=== PATIENT | female | born 1940 | race American Indian/Alaskan Native ===

== ENCOUNTER 2018-05-21 17:12 | Outpatient (CLI) | payer MEDICARE | END 2018-05-21 17:13 | disposition home or self-care (01) | LOC: LAB 17:12 | PROVIDERS: ATTEND Internal Medicine | DX: I13.2 Hypertensive heart and chronic kidney disease with heart failure and with stage 5 chronic kidney disease, or end stage renal disease (principal); E78.5 Hyperlipidemia, unspecified; N18.6 End stage renal disease; I50.9 Heart failure, unspecified; E78.00 Pure hypercholesterolemia, unspecified; M19.90 Unspecified osteoarthritis, unspecified site; E03.9 Hypothyroidism, unspecified; J44.9 Chronic obstructive pulmonary disease, unspecified; K21.9 Gastro-esophageal reflux disease without esophagitis; Z90.49 Acquired absence of other specified parts of digestive tract; Z90.710 Acquired absence of both cervix and uterus; Z87.891 Personal history of nicotine dependence | CPT/HCPCS: 36415; 84132 ==

== ENCOUNTER 2018-11-20 07:54 | Outpatient (CLI) | payer MEDICARE ==
[2018-11-20] MEDS ORDERED: XYLOCAINE TOPICAL 4% TP ONE (09:00)
== END 2018-11-20 07:55 | disposition home or self-care (01) ==
LOC: WOUND 07:54
PROVIDERS: ATTEND Surgery
DX: E11.621 Type 2 diabetes mellitus with foot ulcer (principal); L97.512 Non-pressure chronic ulcer of other part of right foot with fat layer exposed; E11.69 Type 2 diabetes mellitus with other specified complication; M86.671 Other chronic osteomyelitis, right ankle and foot; E11.22 Type 2 diabetes mellitus with diabetic chronic kidney disease; I12.0 Hypertensive chronic kidney disease with stage 5 chronic kidney disease or end stage renal disease; N18.6 End stage renal disease; E11.51 Type 2 diabetes mellitus with diabetic peripheral angiopathy without gangrene; Z90.710 Acquired absence of both cervix and uterus
CPT/HCPCS: 11043; G0463; 99205

== ENCOUNTER 2018-11-26 05:46 | Day surgery (SDC) | payer MEDICARE ==
[~2018-11-26 05:46] MED LIST: LACTATED RINGERS 1,000 ML IV SCH
[2018-11-26] MEDS ORDERED: HEPARIN SUB-Q NR (07:15)
[2018-11-26] MEDS ORDERED: DILAUDID ONE (07:20)
[2018-11-26] MEDS ORDERED: DIPRIVAN 10 MG/ML IV ONE (07:20)
[2018-11-26] MEDS ORDERED: XYLOCAINE MPF 2% ONE (07:20)
--- NOTE | 2018-11-26 07:24 | Anesthesia Day of Surgery ---
Anesthesia Day of Surgery - Day of Surgery Patient Examined: Yes Patient H&P Reviewed: Yes Patient is NPO: Yes Beta Blockers: No (n/a) Cardiac Clearance: No (n/a) Pulmonary Clearance: No (n/a)
--- NOTE | 2018-11-26 07:24 | Anesthesia Consultation ---
Anesthesia Consult and Med Hx Date of service: 11/26/18 - Airway Anesthetic Teeth Evaluation: Dentures ROM Head & Neck: Adequate Mental/Hyoid Distance: Adequate Mallampati Class: Class II Intubation Access Assessment: Probably Good - Pulmonary Exam CTA: Yes - Cardiac Exam Cardiac Exam: RRR - Pre-Operative Health Status ASA Pre-Surgery Classification: ASA4 Proposed Anesthetic Plan: General, MAC - Pulmonary Hx Smoking: Yes (SOCIALLY ONLY; QUIT 1972) SOB: Yes (resolved with oxygen via nasal cannula) COPD: Yes Hx Sleep Apnea: Yes - Cardiovascular System Hx Hypertension: Yes (SINCE ) Hx Heart Attack/AMI: No Hx Cardia Arrhythmia: No - Central Nervous System CVA: Yes (2013; "balance is a little off" per daughter) Hx Back Pain: Yes Hx Psychiatric Problems: No - Gastrointestinal Hx Gastroesophageal Reflux Disease: Yes (controlled with medication) - Endocrine Hx End Stage Renal Disease: Yes (HD yesterday; K+ 5.0) Hx Liver Disease: No Hx Insulin Dependent Diabetes: Yes (FBS 135 this morning ) Hx Hypothyroidism: Yes - Other Systems Hx Alcohol Use: No Hx Substance Use: No Hx Cancer: No Hx Obesity: Yes - Additional Comments Anesthesia Medical History Comments: No GAC, No FHAC
[2018-11-26] MEDS ORDERED: NACL 0.9% IR ONE (07:51)
[2018-11-26] MEDS ORDERED: ANCEF/STERILE WATER 2 GM/20 ML IV NR (08:00)
[2018-11-26] MEDS ORDERED: ZOFRAN ONE (08:18)
[2018-11-26] MEDS ORDERED: PERCOCET 5/325 PO PRN (08:44)
[2018-11-26] MEDS: DILAUDID IV PRN ×4 (08:50→09:30)
--- NOTE | 2018-11-26 10:31 | Procedure Note ---
Date of procedure: 11/26/18 Pre-op diagnosis: Infected, gangrenous right 3rd toe Post-op diagnosis: same (With osteomyelitis of proximal phalanx) Procedure: Right 3rd toe transmetatarsal amputation Description of procedure: Pt was placed supine on the OR table. General anesthesia by LMA was administered. Pt's right foot was prepped and drape. A tear drop incision was made about the right 3rd toe. Bleeding was minimal. The right 3rd toe was amputated and the MTP joint. The right 3rd metatarsal head was amputated with a bone cutter. Tendons were maximally retracted and transected as proximal as possible. Pus within the wound was cultured. Necrotic skin, SQ tissue, muscle and fascia were sharply debrided. Wound was irrigated with warm saline. Wound was packed open with a dilute Betadine moistened Kerlix roll followed by a Kerlix and Coban wrap. Pt tolerated the procedure well. She was taken to PACU in stable condition. Anesthesia: other (LMA) Surgeon: OMER SANDOVAL Estimated blood loss: minimal Pathology: list (Right 3rd toe and metatarsal head; Also, aerobic and anaerobic C&S) Specimen disposition: to lab Condition: stable Disposition: PACU
[2018-11-26 11:00] VITALS: BP 113/67
--- NOTE | 2018-11-26 11:09 | Post Anesthesia Evaluation ---
- Post Anesthesia Evaluation Patient Participated: Yes Airway Patent: Yes Stable Respiratory Function: Yes Nausea/Vomiting: No Temp > 96.8F: Yes Pain Manageable: Yes Adequeate Hydration: Yes Anesthesia Complications: No
== END 2018-11-26 12:05 | disposition home or self-care (01) ==
LOC: OR 05:46
PROVIDERS: ATTEND Surgery
DX: E11.69 Type 2 diabetes mellitus with other specified complication (principal); M86.8X9 Other osteomyelitis, unspecified sites; G47.33 Obstructive sleep apnea (adult) (pediatric); I13.2 Hypertensive heart and chronic kidney disease with heart failure and with stage 5 chronic kidney disease, or end stage renal disease; E11.22 Type 2 diabetes mellitus with diabetic chronic kidney disease; E03.9 Hypothyroidism, unspecified; N18.6 End stage renal disease; I50.9 Heart failure, unspecified; D64.9 Anemia, unspecified; E11.40 Type 2 diabetes mellitus with diabetic neuropathy, unspecified; E78.00 Pure hypercholesterolemia, unspecified; E78.5 Hyperlipidemia, unspecified; J44.9 Chronic obstructive pulmonary disease, unspecified; K21.9 Gastro-esophageal reflux disease without esophagitis; E66.9 Obesity, unspecified; M19.90 Unspecified osteoarthritis, unspecified site; Z98.890 Other specified postprocedural states; Z91.81 History of falling; Z88.0 Allergy status to penicillin; Z79.899 Other long term (current) drug therapy; Z79.01 Long term (current) use of anticoagulants; Z87.891 Personal history of nicotine dependence; Z99.2 Dependence on renal dialysis; Z98.42 Cataract extraction status, left eye; Z98.41 Cataract extraction status, right eye; Z90.49 Acquired absence of other specified parts of digestive tract; Z68.28 Body mass index [BMI] 28.0-28.9, adult; Z83.3 Family history of diabetes mellitus; Z90.710 Acquired absence of both cervix and uterus; Z82.49 Family history of ischemic heart disease and other diseases of the circulatory system; Z88.8 Allergy status to other drugs, medicaments and biological substances; Z86.73 Personal history of transient ischemic attack (TIA), and cerebral infarction without residual deficits
CPT/HCPCS: 28810; 82803; 82962; 87075; 87116; 88302; 88304; 88311; J1170; J1644; J2405; J2704; J7120; 88305

== ENCOUNTER 2018-11-28 13:59 | Outpatient (CLI) | payer MEDICARE | END 2018-11-28 14:00 | disposition home or self-care (01) | LOC: WOUND 13:59 | PROVIDERS: ATTEND Surgery | DX: E11.621 Type 2 diabetes mellitus with foot ulcer (principal); L97.511 Non-pressure chronic ulcer of other part of right foot limited to breakdown of skin; E11.69 Type 2 diabetes mellitus with other specified complication; M86.671 Other chronic osteomyelitis, right ankle and foot; E11.51 Type 2 diabetes mellitus with diabetic peripheral angiopathy without gangrene; E11.22 Type 2 diabetes mellitus with diabetic chronic kidney disease; I12.0 Hypertensive chronic kidney disease with stage 5 chronic kidney disease or end stage renal disease; N18.6 End stage renal disease; H54.7 Unspecified visual loss; Z90.710 Acquired absence of both cervix and uterus; Z90.49 Acquired absence of other specified parts of digestive tract; Z99.2 Dependence on renal dialysis | CPT/HCPCS: 99212; G0463 ==

== ENCOUNTER 2018-11-29 09:00 | Inpatient (IN) | payer MEDICARE ==
[2018-11-29] MEDS ORDERED: NACL 0.9% 1000 ML 500 ML IV ONE (09:48)
--- NOTE | 2018-11-29 09:54 | Emergency Department Report ---
ED General Adult HPI - General Chief complaint: Altered Mental Status Stated complaint: ALTERED MENTAL STATUS Time Seen by Provider: 11/29/18 09:33 Source: EMS Mode of arrival: Stretcher Limitations: Altered Mental Status - History of Present Illness Initial comments: This is a 78-year-old female with alteration in mental status. Limited history is available to me at this time. Ticket Puller states that the patient was last seen well at 11 PM last night. She was lethargic this a.m. She has recently had foot surgery at this facility per the 11/26/2018 note: Right 3rd toe transmetatarsal amputation Description of procedure: Pt was placed supine on the OR table. General anesthesia by LMA was administered. Pt's right foot was prepped and drape. A tear drop incision was made about the right 3rd toe. Bleeding was minimal. The right 3rd toe was amputated and the MTP joint. The right 3rd metatarsal head was amputated with a bone cutter. Tendons were maximally retracted and transected as proximal as possible. Pus within the wound was cultured. Necrotic skin, SQ tissue, muscle and fascia were sharply debrided. Wound was irrigated with warm saline. Wound was packed open with a dilute Betadine moistened Kerlix roll followed by a Kerlix and Coban wrap. Pt tolerated the procedure well. She was taken to PACU in stable condition. Beta hemolytic group B strep was found on culture of the surgical specimen. Fu rther review the patient's past medical records indicate that she had a thalamic hemorrhage and 2017: FINDINGS: The ventricles are normal in shape and position. Mild motion artifact is present. Dilated ventricles, likely related to diffuse cerebral volume loss. Moderate areas of low-attenuation are seen in the periventricular and subcortical white matter. There is an acute left thalamic hemorrhage measuring 9 millimeters. No mass effect or midline shift. The basilar cisterns are patent. Mild mucosal thickening of the paranasal sinuses is likely congestive or inflammatory. The extracranial soft tissues demonstrate no abnormality. The calvarium is intact. The orbits are intact. The mastoid air cells are clear. IMPRESSION: 1. Acute left thalamic hemorrhage. 2. Diffuse cerebral volume loss and findings of chronic microvascular ischemic disease. Findings were discussed with Dr. Cr at 3 p.m. PST on 08/28/2018. 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 -: hour(s) Severity scale (0 -10): 0 - Related Data Home Medications Medication Instructions Recorded Confirmed Last Taken Ezetimibe [Zetia] 10 mg PO HS 05/11/14 11/26/18 11/25/18 20:00 Levothyroxine [Synthroid] 50 mcg PO DAILY 05/11/14 11/29/18 11/26/18 05:00 B Complex 11/Folic/C/Biot/Zinc 1 each PO DAILY 09/06/15 11/26/18 11/25/18 20:00 [Dialyvite with Zinc Tablet] Pravastatin [Pravachol] 40 mg PO QHS 09/06/15 11/29/18 11/25/18 20:00 Calcium Acetate [Phoslo] 667 mg PO TID 06/25/17 11/25/18 06/25/17 Meloxicam [Mobic] 7.5 mg PO DAILY 06/25/17 11/26/18 11/25/18 09:00 Pregabalin [Lyrica] 75 mg PO BID 06/25/17 11/29/18 11/25/18 20:00 Detemir (Nf) [Levemir (Nf)] 10 units SQ QHS PRN 11/25/18 11/25/18 Unknown Lispro Insulin [Humalog] 0 unit SQ AC 11/25/18 11/25/18 Unknown Oxycodone HCl [Roxicodone] 5 mg PO DAILY PRN 11/25/18 11/26/18 11/25/18 10:00 Pantoprazole Sodium 40 mg PO DAILY 11/25/18 11/29/18 11/26/18 05:00 amLODIPine [Norvasc] 2.5 mg PO DAILY 11/25/18 11/26/18 11/26/18 05:00 levoFLOXacin [Levaquin TAB] 250 mg PO DAILY 11/25/18 11/26/18 11/25/18 15:30 Omeprazole 11/29/18 Unknown levoFLOXacin [Levaquin TAB] 500 mg PO 11/29/18 Unknown Previous Rx's Medication Instructions Recorded Last Taken Type Diphenoxylate/Atropine [Lomotil] 1 tab PO Q6H PRN #60 tablet 09/15/15 06/24/17 Rx Doxycycline [Vibramycin CAP] 100 mg PO Q12HR 14 Days #28 capsule 11/26/18 Unknown Rx oxyCODONE /ACETAMINOPHEN [Percocet 1 tab PO Q6HR PRN #30 tablet 11/26/18 Unknown Rx 5/325] Allergies Allergy/AdvReac Type Severity Reaction Status Date / Time Iodinated Contrast- Oral and Allergy Hives, Rash Verified 11/25/18 15:48 IV Dye Penicillins Allergy Hives Verified 11/25/18 15:48 ED Review of Systems ROS: Stated complaint: ALTERED MENTAL STATUS Other details as noted in HPI Comment: Unobtainable due to pts medical conditions ED Past Medical Hx - Past Medical History Hx Hypertension: Yes (SINCE ) Hx CVA: Yes (2013) Hx Heart Attack/AMI: No Hx Congestive Heart Failure: Yes (WAITING FOR 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) Hx Diabetes: Yes (SINCE ) Hx GERD: Yes (PANTOPROZOLE) Hx Liver Disease: No Hx Arthritis: Yes Hx COPD: Yes Hx HIV: No Additional medical history: sleep apnea, legally blind, L upper arm graft, sleep apnea (cpap qHS), anuric, hypothyrodism, diabetic neuropathy, - Surgical History Hx Cholecystectomy: Yes (2009) - Social History Smoking Status: Unknown if ever smoked - Medications Home Medications: Home Medications Medication Instructions Recorded Confirmed Last Taken Type Ezetimibe [Zetia] 10 mg PO HS 05/11/14 11/26/18 11/25/18 20:00 History Levothyroxine [Synthroid] 50 mcg PO DAILY 05/11/14 11/29/18 11/26/18 05:00 History B Complex 11/Folic/C/Biot/Zinc 1 each PO DAILY 09/06/15 11/26/18 11/25/18 20:00 History [Dialyvite with Zinc Tablet] Pravastatin [Pravachol] 40 mg PO QHS 09/06/15 11/29/18 11/25/18 20:00 History Diphenoxylate/Atropine [Lomotil] 1 tab PO Q6H PRN #60 tablet 09/15/15 11/25/18 06/24/17 Rx Calcium Acetate [Phoslo] 667 mg PO TID 06/25/17 11/25/18 06/25/17 History Meloxicam [Mobic] 7.5 mg PO DAILY 06/25/17 11/26/18 11/25/18 09:00 History Pregabalin [Lyrica] 75 mg PO BID 06/25/17 11/29/18 11/25/18 20:00 History Detemir (Nf) [Levemir (Nf)] 10 units SQ QHS PRN 11/25/18 11/25/18 Unknown History Lispro Insulin [Humalog] 0 unit SQ AC 11/25/18 11/25/18 Unknown History Oxycodone HCl [Roxicodone] 5 mg PO DAILY PRN 11/25/18 11/26/18 11/25/18 10:00 History Pantoprazole Sodium 40 mg PO DAILY 11/25/18 11/29/18 11/26/18 05:00 History amLODIPine [Norvasc] 2.5 mg PO DAILY 11/25/18 11/26/18 11/26/18 05:00 History levoFLOXacin [Levaquin TAB] 250 mg PO DAILY 11/25/18 11/26/18 11/25/18 15:30 History Doxycycline [Vibramycin CAP] 100 mg PO Q12HR 14 Days #28 capsule 11/26/18 Unknown Rx oxyCODONE /ACETAMINOPHEN [Percocet 1 tab PO Q6HR PRN #30 tablet 11/26/18 Unknown Rx 5/325] Omeprazole 11/29/18 Unknown History levoFLOXacin [Levaquin TAB] 500 mg PO 11/29/18 Unknown History ED Physical Exam - General Limitations: Altered Mental Status General appearance: alert, in no apparent distress - Head Head exam: Present: atraumatic, normocephalic - Eye Eye exam: Present: normal appearance. Absent: scleral icterus - ENT ENT exam: Present: mucous membranes moist - Neck Neck exam: Present: normal inspection. Absent: tenderness, meningismus - Respiratory Respiratory exam: Present: normal lung sounds bilaterally. Absent: respiratory distress - Cardiovascular Cardiovascular Exam: Present: regular rate, normal rhythm. Absent: systolic murmur, diastolic murmur, rubs, gallop - GI/Abdominal GI/Abdominal exam: Present: soft, normal bowel sounds. Absent: distended, tenderness, guarding, rebound, rigid - Extremities Exam Extremities exam: Present: other (right wound is dressed in bulky dressing and no obvious lymphangitis) - Back Exam Back exam: Present: normal inspection - Neurological Exam Neurological exam: Present: altered, other (exam appears to be nonfocal. The patient will state her name but does not appear to be oriented to place or context) - Psychiatric Psychiatric exam: Present: normal affect, normal mood - Skin Skin exam: Present: warm, dry, intact, normal color. Absent: rash ED Course Vital Signs 11/29/18 11/29/18 09:28 11:10 Temperature 99.1 F Pulse Rate 77 73 Respiratory 16 16 Rate Blood Pressure 130/58 Blood Pressure 122/62 [Right] O2 Sat by Pulse 97 97 Oximetry - Reevaluation(s) Reevaluation #1: Spoke with daughter. She states that the patient is due for dialysis today. She has been intermittently vomiting. Her by mouth intake has not been well tolerated. She has not had any apparent recent fever and chills but did so prior to her procedure. She is much more lethargic today than yesterday. She is recently started Percocet. She has been on Levaquin for some time and recently doxycycline has been added to her regimen. 11/29/18 11:11 Reevaluation #2: I'm going to defer the postoperative wound management to Dr. Munoz and wound care. 11/29/18 11:28 ED Medical Decision Making - Lab Data Result diagrams: 11/29/18 09:59 11/29/18 09:59 Laboratory Results - last 24 hr 11/29/18 11/29/18 11/29/18 09:59 09:59 09:59 WBC 13.3 H RBC 3.74 Hgb 8.7 L Hct 28.0 L MCV 75 L MCH 23 L MCHC 31 RDW 17.3 H Plt Count 269 Lymph % (Auto) 8.4 L Traill % (Auto) 6.9 Eos % (Auto) 1.0 Baso % (Auto) 0.4 Lymph # 1.1 L Traill # 0.9 H Eos # 0.1 Baso # 0.1 Seg Neutrophils % 83.3 H Seg Neutrophils # 11.0 H PT INR APTT Sodium 135 L Potassium 4.7 Chloride 95.2 L Carbon Dioxide 25 Anion Gap 20 BUN 48 H Creatinine 7.4 H Estimated GFR 6 BUN/Creatinine Ratio 6 Glucose 119 H Lactic Acid 0.90 Calcium 8.9 Magnesium Total Bilirubin Direct Bilirubin Indirect Bilirubin AST ALT Alkaline Phosphatase Total Creatine Kinase CK-MB (CK-2) CK-MB (CK-2) Rel Index Troponin T Total Protein Albumin Albumin/Globulin Ratio Triglycerides Cholesterol LDL Cholesterol Direct HDL Cholesterol Cholesterol/HDL Ratio 11/29/18 11/29/18 09:59 09:59 WBC RBC Hgb Hct MCV MCH MCHC RDW Plt Count Lymph % (Auto) Traill % (Auto) Eos % (Auto) Baso % (Auto) Lymph # Traill # Eos # Baso # Seg Neutrophils % Seg Neutrophils # PT 15.1 H INR 1.12 APTT 32.0 Sodium Cancelled Potassium Cancelled Chloride Cancelled Carbon Dioxide Cancelled Anion Gap Cancelled BUN Cancelled Creatinine Cancelled Estimated GFR Cancelled BUN/Creatinine Ratio Cancelled Glucose Cancelled Lactic Acid Calcium Cancelled Magnesium 2.10 Total Bilirubin 0.20 Direct Bilirubin < 0.2 Indirect Bilirubin 0.0 AST 22 ALT < 5 L Alkaline Phosphatase 228 H Total Creatine Kinase 166 H CK-MB (CK-2) 2.6 CK-MB (CK-2) Rel Index 1.5 Troponin T 0.128 H* Total Protein 6.2 L Albumin 2.7 L Albumin/Globulin Ratio 0.8 Triglycerides 39 Cholesterol 73 LDL Cholesterol Direct 19 L HDL Cholesterol 42 Cholesterol/HDL Ratio 1.73 Laboratory Results - last 24 hr 11/29/18 11/29/18 11/29/18 09:59 09:59 09:59 WBC 13.3 H RBC 3.74 Hgb 8.7 L Hct 28.0 L MCV 75 L MCH 23 L MCHC 31 RDW 17.3 H Plt Count 269 Lymph % (Auto) 8.4 L Traill % (Auto) 6.9 Eos % (Auto) 1.0 Baso % (Auto) 0.4 Lymph # 1.1 L Traill # 0.9 H Eos # 0.1 Baso # 0.1 Seg Neutrophils % 83.3 H Seg Neutrophils # 11.0 H PT INR APTT POC ABG pH POC ABG pCO2 POC ABG pO2 POC ABG HCO3 POC ABG Total CO2 POC ABG O2 Sat POC ABG Base Excess FiO2 Sodium 135 L Potassium 4.7 Chloride 95.2 L Carbon Dioxide 25 Anion Gap 20 BUN 48 H Creatinine 7.4 H Estimated GFR 6 BUN/Creatinine Ratio 6 Glucose 119 H Lactic Acid 0.90 Calcium 8.9 Magnesium Total Bilirubin Direct Bilirubin Indirect Bilirubin AST ALT Alkaline Phosphatase Total Creatine Kinase CK-MB (CK-2) CK-MB (CK-2) Rel Index Troponin T Total Protein Albumin Albumin/Globulin Ratio Triglycerides Cholesterol LDL Cholesterol Direct HDL Cholesterol Cholesterol/HDL Ratio 11/29/18 11/29/18 11/29/18 09:59 09:59 11:28 WBC RBC Hgb Hct MCV MCH MCHC RDW Plt Count Lymph % (Auto) Traill % (Auto) Eos % (Auto) Baso % (Auto) Lymph # Traill # Eos # Baso # Seg Neutrophils % Seg Neutrophils # PT 15.1 H INR 1.12 APTT 32.0 POC ABG pH 7.328 L POC ABG pCO2 51.9 H POC ABG pO2 89 POC ABG HCO3 27.2 POC ABG Total CO2 29 POC ABG O2 Sat 96 POC ABG Base Excess 1 FiO2 36 Sodium Cancelled Potassium Cancelled Chloride Cancelled Carbon Dioxide Cancelled Anion Gap Cancelled BUN Cancelled Creatinine Cancelled Estimated GFR Cancelled BUN/Creatinine Ratio Cancelled Glucose Cancelled Lactic Acid Calcium Cancelled Magnesium 2.10 Total Bilirubin 0.20 Direct Bilirubin < 0.2 Indirect Bilirubin 0.0 AST 22 ALT < 5 L Alkaline Phosphatase 228 H Total Creatine Kinase 166 H CK-MB (CK-2) 2.6 CK-MB (CK-2) Rel Index 1.5 Troponin T 0.128 H* Total Protein 6.2 L Albumin 2.7 L Albumin/Globulin Ratio 0.8 Triglycerides 39 Cholesterol 73 LDL Cholesterol Direct 19 L HDL Cholesterol 42 Cholesterol/HDL Ratio 1.73 ABG did show a pH of 7.[address] Hernández informed, the patient will require BiPAP continuation. Spoke with Dr. Lopez regarding dialysis. - EKG Data -: EKG Interpreted by Me EKG shows normal: sinus rhythm, axis (normal), intervals (normal), QRS complexes (normal) - EKG Data Interpretation: nonspecific ST-T wave yana - Radiology Data interpreted by me: Chest x-ray shows cardiomegaly with some fluid overload I don't see anything grossly acute on the patient's CT of her head. Radiologist interpretation is pending. Critical Care Time: Yes Critical care time in (mins) excluding proc time.: 60 Critical care attestation.: If time is entered above; I have spent that time in minutes in the direct care of this critically ill patient, excluding procedure time. ED Disposition Clinical Impression: End stage renal disease on dialysis, Diabetic infection of right foot, H ypercapnic respiratory failure, chronic Altered mental status Qualifiers: Altered mental status type: somnolence Qualified Code(s): R40.0 - Somnolence Sepsis Qualifiers: Sepsis type: sepsis due to unspecified organism Qualified Code(s): A41.9 - S epsis, unspecified organism CHF (congestive heart failure) Qualifiers: Heart failure type: combined systolic and diastolic Heart failure chronicity: acute on chronic Qualified Code(s): I50.43 - Acute on chronic combined systolic (congestive) and diastolic (congestive) heart failure Disposition: 09 OP ADMIT IP TO THIS HOSP Is pt being admited?: Yes Does the pt Need Aspirin: Yes Condition: Stable Instructions: Diabetes Mellitus Type 2 in Adults (ED) Referrals: PRIMARY CARE, [Primary Care Provider] - 3-5 Days Time of Disposition: 11:27
[2018-11-29 10:13] LABS: Basophils # (Auto) 0.1 K/mm3 (0.0-0.1); Basophils % (Auto) 0.4 % (0.0-1.8); Eosinophils # (Auto) 0.1 K/mm3 (0.0-0.4); Hemoglobin 8.7 gm/dl (10.1-14.3); Lymphocytes # (Auto) 1.1 K/mm3 (1.2-5.4); Lymphocytes % (Auto) 8.4 % (13.4-35.0); Mean Corpuscular HGB Conc 31 % (30-34); Mean Corpuscular Volume 75 fl (79-97); Monocytes # (Auto) 0.9 K/mm3 (0.0-0.8); Monocytes % (Auto) 6.9 % (0.0-7.3); Platelet Count 269 K/mm3 (140-440); Red Blood Count 3.74 M/mm3 (3.65-5.03); Red Cell Distribution Width 17.3 % (13.2-15.2)
[2018-11-29 10:27] LABS: INR 1.12 (0.87-1.13)
[2018-11-29 10:33] LABS: Creatine Kinase MB 2.6 ng/mL (0.0-4.0)
[2018-11-29 10:34] LABS: Calcium 8.9 mg/dL (8.4-10.2)
[2018-11-29 10:35] LABS: Albumin 2.7 g/dL (3.9-5)
[2018-11-29 10:36] LABS: Alanine Aminotransferase < 5 units/L (7-56); Bilirubin,Direct < 0.2 mg/dL (0-0.2)
[2018-11-29 10:53] LABS: Chol/HDL Ratio 1.73 %; HDL Cholesterol 42 mg/dL (40-59); LDL Cholesterol,Direct 19 mg/dL (50-130)
[2018-11-29] MEDS ORDERED: MERREM 1,000 MG in NACL 0.9% 100 ML IV ONE (11:08)
--- NOTE | 2018-11-29 11:15 | Cat Scan Report ---
PROCEDURE: CT HEAD/BRAIN WO CON TECHNIQUE: Multiple contrast axial images were obtained through the brain without administration of IV contrast. Reformatted sagittal and coronal images were available for review. HISTORY: AMS COMPARISONS: CT of the head performed on 08/28/2018 FINDINGS: There is age-related cerebral cortical atrophy. There is no parenchymal hemorrhage or extra-axial flu id collection. There is no mass or mass effect. There is no acute territorial infarct. There are scat tered areas of decreased attenuation in the subcortical and periventricular white matter, likely due to chronic microvascular ischemic disease. The ventricles are midline. The subarachnoid spaces and ba silar cisterns are clear. There is no skull fracture. The paranasal sinuses and mastoid air cells are clear. IMPRESSION: No acute intracranial abnormality. If clinical concern for pathology persists MRI can be obtained for further evaluation. Chronic microvascular ischemic disease in the subcortical and periventricular white matter. This document is electronically signed by Chantel Baca MD., November 29 2018 11:13:06 AM ET
[2018-11-29] MEDS ORDERED: BABY ASPIRIN PO ONE (11:28)
--- NOTE | 2018-11-29 11:31 | History and Physical Report ---
History of Present Illness Date of examination: 11/29/18 History of present illness: 78 y/o ED Review of Systems ROS: Stated complaint: ALTERED MENTAL STATUS Other details as noted in HPI Comment: Unobtainable due to pts medical conditions ED Past Medical Hx - Past Medical History Hx Hypertension: Yes (SINCE ) Hx CVA: Yes (2013) Hx Heart Attack/AMI: No Hx Congestive Heart Failure: Yes (WAITING FOR CONFIRMATION FROM [facility]) Hx Diabetes: Yes (SINCE ) Hx GERD: Yes (PANTOPROZOLE) Hx Liver Disease: No Hx Arthritis: Yes Hx COPD: Yes Hx HIV: No Additional medical history: sleep apnea, legally blind, L upper arm graft, sleep apnea (cpap qHS), anuric, hypothyrodism, diabetic neuropathy, - Surgical History Hx Cholecystectomy: Yes (2009) - Social History Smoking Status: Unknown if ever smoked - Medications Home Medications: Home Medications Medication Instructions Recorded Confirmed Last Taken Type Ezetimibe [Zetia] 10 mg PO HS 05/11/14 11/26/18 11/25/18 20:00 History Levothyroxine [Synthroid] 50 mcg PO DAILY 05/11/14 11/29/18 11/26/18 05:00 History B Complex 11/Folic/C/Biot/Zinc 1 each PO DAILY 09/06/15 11/26/18 11/25/18 20:00 History [Dialyvite with Zinc Tablet] Pravastatin [Pravachol] 40 mg PO QHS 09/06/15 11/29/18 11/25/18 20:00 History Diphenoxylate/Atropine [Lomotil] 1 tab PO Q6H PRN #60 tablet 09/15/15 11/25/18 06/24/17 Rx Calcium Acetate [Phoslo] 667 mg PO TID 06/25/17 11/25/18 06/25/17 History Meloxicam [Mobic] 7.5 mg PO DAILY 06/25/17 11/26/18 11/25/18 09:00 History Pregabalin [Lyrica] 75 mg PO BID 06/25/17 11/29/18 11/25/18 20:00 History Detemir (Nf) [Levemir (Nf)] 10 units SQ QHS PRN 11/25/18 11/25/18 Unknown History Lispro Insulin [Humalog] 0 unit SQ AC 11/25/18 11/25/18 Unknown History Oxycodone HCl [Roxicodone] 5 mg PO DAILY PRN 11/25/18 11/26/18 11/25/18 10:00 History Pantoprazole Sodium 40 mg PO DAILY 11/25/18 11/29/18 11/26/18 05:00 History amLODIPine [Norvasc] 2.5 mg PO DAILY 11/25/18 11/26/18 11/26/18 05:00 History levoFLOXacin [Levaquin TAB] 250 mg PO DAILY 11/25/18 11/26/18 11/25/18 15:30 History Doxycycline [Vibramycin CAP] 100 mg PO Q12HR 14 Days #28 capsule 11/26/18 Unknown Rx oxyCODONE /ACETAMINOPHEN [Percocet 1 tab PO Q6HR PRN #30 tablet 11/26/18 Unknown Rx 5/325] Omeprazole 11/29/18 Unknown History levoFLOXacin [Levaquin TAB] 500 mg PO 11/29/18 Unknown History Medications and Allergies Allergies Allergy/AdvReac Type Severity Reaction Status Date / Time Iodinated Contrast- Oral and Allergy Hives, Rash Verified 11/25/18 15:48 IV Dye Penicillins Allergy Hives Verified 11/25/18 15:48 Home Medications Medication Instructions Recorded Confirmed Last Taken Type Ezetimibe [Zetia] 10 mg PO HS 05/11/14 11/26/18 11/25/18 20:00 History Levothyroxine [Synthroid] 50 mcg PO DAILY 05/11/14 11/29/18 11/26/18 05:00 History B Complex 11/Folic/C/Biot/Zinc 1 each PO DAILY 09/06/15 11/26/18 11/25/18 20:00 History [Dialyvite with Zinc Tablet] Pravastatin [Pravachol] 40 mg PO QHS 09/06/15 11/29/18 11/25/18 20:00 History Diphenoxylate/Atropine [Lomotil] 1 tab PO Q6H PRN #60 tablet 09/15/15 11/25/18 06/24/17 Rx Calcium Acetate [Phoslo] 667 mg PO TID 06/25/17 11/25/18 06/25/17 History Meloxicam [Mobic] 7.5 mg PO DAILY 06/25/17 11/26/18 11/25/18 09:00 History Pregabalin [Lyrica] 75 mg PO BID 06/25/17 11/29/18 11/25/18 20:00 History Detemir (Nf) [Levemir (Nf)] 10 units SQ QHS PRN 11/25/18 11/25/18 Unknown History Lispro Insulin [Humalog] 0 unit SQ AC 11/25/18 11/25/18 Unknown History Oxycodone HCl [Roxicodone] 5 mg PO DAILY PRN 11/25/18 11/26/18 11/25/18 10:00 History Pantoprazole Sodium 40 mg PO DAILY 11/25/18 11/29/18 11/26/18 05:00 History amLODIPine [Norvasc] 2.5 mg PO DAILY 11/25/18 11/26/18 11/26/18 05:00 History levoFLOXacin [Levaquin TAB] 250 mg PO DAILY 11/25/18 11/26/18 11/25/18 15:30 History Doxycycline [Vibramycin CAP] 100 mg PO Q12HR 14 Days #28 capsule 11/26/18 Unknown Rx oxyCODONE /ACETAMINOPHEN [Percocet 1 tab PO Q6HR PRN #30 tablet 11/26/18 Unknown Rx 5/325] Omeprazole 11/29/18 Unknown History levoFLOXacin [Levaquin TAB] 500 mg PO 11/29/18 Unknown History Active Meds: Active Medications Meropenem 1,000 mg/ Sodium (Chloride) 100 mls @ 100 mls/hr IV ONCE ONE Stop: 11/29/18 12:07 Exam - Constitutional Vitals: Temp Pulse Resp BP Pulse Ox 99.1 F 73 16 122/62 97 11/29/18 09:28 11/29/18 11:10 11/29/18 11:10 11/29/18 11:10 11/29/18 11:10 Results - Labs CBC & Chem 7: 11/29/18 09:59 11/29/18 09:59 Labs: Laboratory Last Values WBC 13.3 K/mm3 (4.5-11.0) H 11/29/18 09:59 RBC 3.74 M/mm3 (3.65-5.03) 11/29/18 09:59 Hgb 8.7 gm/dl (10.1-14.3) L 11/29/18 09:59 Hct 28.0 % (30.3-42.9) L 11/29/18 09:59 MCV 75 fl (79-97) L 11/29/18 09:59 MCH 23 pg (28-32) L 11/29/18 09:59 MCHC 31 % (30-34) 11/29/18 09:59 RDW 17.3 % (13.2-15.2) H 11/29/18 09:59 Plt Count 269 K/mm3 (140-440) 11/29/18 09:59 Lymph % (Auto) 8.4 % (13.4-35.0) L 11/29/18 09:59 [place] % (Auto) 6.9 % (0.0-7.3) 11/29/18 09:59 Eos % (Auto) 1.0 % (0.0-4.3) 11/29/18 09:59 Baso % (Auto) 0.4 % (0.0-1.8) 11/29/18 09:59 Lymph # 1.1 K/mm3 (1.2-5.4) L 11/29/18 09:59 [place] # 0.9 K/mm3 (0.0-0.8) H 11/29/18 09:59 Eos # 0.1 K/mm3 (0.0-0.4) 11/29/18 09:59 Baso # 0.1 K/mm3 (0.0-0.1) 11/29/18 09:59 Seg Neutrophils % 83.3 % (40.0-70.0) H 11/29/18 09:59 Seg Neutrophils # 11.0 K/mm3 (1.8-7.7) H 11/29/18 09:59 PT 15.1 Sec. (12.2-14.9) H 11/29/18 09:59 INR 1.12 (0.87-1.13) 11/29/18 09:59 APTT 32.0 Sec. (24.2-36.6) 11/29/18 09:59 POC ABG pH 7.328 (7.35-7.45) L 11/29/18 11:28 POC ABG pCO2 51.9 (35-45) H 11/29/18 11:28 POC ABG pO2 89 (80-105) 11/29/18 11:28 POC ABG HCO3 27.2 (22-26 mml/L) 11/29/18 11:28 POC ABG Total CO2 29 (23-27mmol/L) 11/29/18 11:28 POC ABG O2 Sat 96 11/29/18 11:28 POC ABG Base Excess 1 ((-2) - (+3)mmol/L) 11/29/18 11:28 FiO2 36 % 11/29/18 11:28 Sodium 135 mmol/L (137-145) L 11/29/18 09:59 Potassium 4.7 mmol/L (3.6-5.0) 11/29/18 09:59 Chloride 95.2 mmol/L (98-107) L 11/29/18 09:59 Carbon Dioxide 25 mmol/L (22-30) 11/29/18 09:59 Anion Gap 20 mmol/L 11/29/18 09:59 BUN 48 mg/dL (7-17) H 11/29/18 09:59 Creatinine 7.4 mg/dL (0.7-1.2) H 11/29/18 09:59 Estimated GFR 6 ml/min 11/29/18 09:59 BUN/Creatinine Ratio 6 % 11/29/18 09:59 Glucose 119 mg/dL (65-100) H 11/29/18 09:59 Lactic Acid 0.90 mmol/L (0.7-2.0) 11/29/18 09:59 Calcium 8.9 mg/dL (8.4-10.2) 11/29/18 09:59 Magnesium 2.10 mg/dL (1.7-2.3) 11/29/18 09:59 Total Bilirubin 0.20 mg/dL (0.1-1.2) 11/29/18 09:59 Direct Bilirubin < 0.2 mg/dL (0-0.2) 11/29/18 09:59 Indirect Bilirubin 0.0 mg/dL 11/29/18 09:59 AST 22 units/L (5-40) 11/29/18 09:59 ALT < 5 units/L (7-56) L 11/29/18 09:59 Alkaline Phosphatase 228 units/L (35-129) H 11/29/18 09:59 Total Creatine Kinase 166 units/L (30-135) H 11/29/18 09:59 CK-MB (CK-2) 2.6 ng/mL (0.0-4.0) 11/29/18 09:59 CK-MB (CK-2) Rel Index 1.5 (0-4) 11/29/18 09:59 Troponin T 0.128 ng/mL (0.00-0.029) H* 11/29/18 09:59 Total Protein 6.2 g/dL (6.3-8.2) L 11/29/18 09:59 Albumin 2.7 g/dL (3.9-5) L 11/29/18 09:59 Albumin/Globulin Ratio 0.8 % 11/29/18 09:59 Triglycerides 39 mg/dL (2-149) 11/29/18 09:59 Cholesterol 73 mg/dL (50-199) 11/29/18 09:59 LDL Cholesterol Direct 19 mg/dL (50-130) L 11/29/18 09:59 HDL Cholesterol 42 mg/dL (40-59) 11/29/18 09:59 Cholesterol/HDL Ratio 1.73 % 11/29/18 09:59
[2018-11-29] MEDS ORDERED: NON-FORMULARY (Detemir (Nf) 10 UNITS) SQ PRN (11:34)
[2018-11-29] MEDS ORDERED: SODIUM CHLORIDE FLUSH SYRINGE 10 ML IV PRN (11:39)
[2018-11-29] MEDS ORDERED: ZOFRAN IV PRN (11:39)
[2018-11-29] MEDS ORDERED: HumaLOG SUB-Q ONE (11:41)
[2018-11-29] MEDS ORDERED: NON-FORMULARY (B Complex 11/Folic/C/Biot/Zinc [Dialyvite With Zinc Tablet] 1 EACH) PO SCH (11:45)
[2018-11-29] MEDS ORDERED: LANTUS SUB-Q PRN (11:52)
[2018-11-29] MEDS ORDERED: UNASYN/NS 3 GM/100 ML 3 GM/100 ML BAG IV SCH (12:00)
[2018-11-29] MEDS ORDERED: VANCOMYCIN 1,250 MG in NACL 0.9% 250ML 250 ML IV ONE (12:00)
[2018-11-29] MEDS ORDERED: VANCOMYCIN PHARMACY TO DOSE IV SCH (12:00)
[2018-11-29] MEDS ORDERED: HEPARIN IV PRN (12:25)
[2018-11-29] MEDS ORDERED: NACL 0.9% 100 ML IV PRN (12:25)
[2018-11-29] MEDS ORDERED: HEPARIN 10,000 UNITS/10 ML IV PRN (12:25)
[2018-11-29] MEDS: PHOSLO PO SCH ×2 (13:26→20:00)
[2018-11-29] MEDS: PROTONIX PO SCH (13:26)
[2018-11-29] MEDS: SYNTHROID PO SCH (13:26)
[2018-11-29] MEDS: LYRICA PO SCH ×2 (13:27→21:01)
[2018-11-29] MEDS: Renal Caps PO SCH (13:27)
--- NOTE | 2018-11-29 13:27 | Consultation ---
History of Present Illness - Reason for Consult Consult date: 11/29/18 - History of Present Illness 78yr F found unresponsive & brought to ER. 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 Past History Past Medical History: COPD, ESRD, hypertension, stroke Social history: other (Unobtainable) Family history: other (Unobtainable) Medications and Allergies Allergies Allergy/AdvReac Type Severity Reaction Status Date / Time Iodinated Contrast- Oral and Allergy Hives, Rash Verified 11/25/18 15:48 IV Dye Penicillins Allergy Hives Verified 11/25/18 15:48 Home Medications Medication Instructions Recorded Confirmed Last Taken Type Ezetimibe [Zetia] 10 mg PO HS 05/11/14 11/26/18 11/25/18 20:00 History Levothyroxine [Synthroid] 50 mcg PO DAILY 05/11/14 11/29/18 11/26/18 05:00 History B Complex 11/Folic/C/Biot/Zinc 1 each PO DAILY 09/06/15 11/26/18 11/25/18 20:00 History [Dialyvite with Zinc Tablet] Pravastatin [Pravachol] 40 mg PO QHS 09/06/15 11/29/18 11/25/18 20:00 History Diphenoxylate/Atropine [Lomotil] 1 tab PO Q6H PRN #60 tablet 09/15/15 11/25/18 06/24/17 Rx Calcium Acetate [Phoslo] 667 mg PO TID 06/25/17 11/25/18 06/25/17 History Meloxicam [Mobic] 7.5 mg PO DAILY 06/25/17 11/26/18 11/25/18 09:00 History Pregabalin [Lyrica] 75 mg PO BID 06/25/17 11/29/18 11/25/18 20:00 History Detemir (Nf) [Levemir (Nf)] 10 units SQ QHS PRN 11/25/18 11/25/18 Unknown History Lispro Insulin [Humalog] 0 unit SQ AC 11/25/18 11/25/18 Unknown History Oxycodone HCl [Roxicodone] 5 mg PO DAILY PRN 11/25/18 11/26/18 11/25/18 10:00 History Pantoprazole Sodium 40 mg PO DAILY 11/25/18 11/29/18 11/26/18 05:00 History amLODIPine [Norvasc] 2.5 mg PO DAILY 11/25/18 11/26/18 11/26/18 05:00 History levoFLOXacin [Levaquin TAB] 250 mg PO DAILY 11/25/18 11/26/18 11/25/18 15:30 History Doxycycline [Vibramycin CAP] 100 mg PO Q12HR 14 Days #28 capsule 11/26/18 Unknown Rx oxyCODONE /ACETAMINOPHEN [Percocet 1 tab PO Q6HR PRN #30 tablet 11/26/18 Unknown Rx 5/325] Omeprazole 11/29/18 Unknown History levoFLOXacin [Levaquin TAB] 500 mg PO 11/29/18 Unknown History Active Meds: Active Medications Acetaminophen (Tylenol) 650 mg PO Q4H PRN PRN Reason: Pain MILD(1-3)/Fever >100.5/DALE Amlodipine Besylate (Norvasc) 2.5 mg PO DAILY JUAQUIN Calcium Acetate (Phoslo) 667 mg PO TID JUAQUIN Epoetin Quincy (Procrit) 10,000 unit IV ANNI PRN PRN Reason: hemodialysis Heparin Sodium (Porcine) (Heparin) 5,000 unit IV ANNI PRN PRN Reason: hemodialysis Heparin Sodium (Porcine) (Heparin 10,000 Units/10 Ml) 2,000 unit IV ANNI PRN PRN Reason: hemodialysis Hydromorphone HCl (Dilaudid) 0.5 mg IV Q3H PRN PRN Reason: Pain , Severe (7-10) Vancomycin HCl 1,250 mg/ (Sodium Chloride) 275 mls @ 166.667 mls/hr IV ONCE ONE Stop: 11/29/18 13:38 Last Admin: 11/29/18 13:18 Dose: 166.667 mls/hr Documented by: Sodium Chloride (Nacl 0.9%) 100 mls @ 999 mls/hr IV ANNI PRN PRN Reason: Hypotension Insulin Glargine (Lantus) 10 units SUB-Q QHS PRN PRN Reason: HYPERGLYCEMIC Levothyroxine Sodium (Synthroid) 50 mcg PO DAILY JUAQUIN Metoclopramide HCl (Reglan) 10 mg IV Q6H PRN PRN Reason: Nausea And Vomiting Multivit/Ca Carb/B Cmplx/FA/Prenat (Renal Caps) 1 cap PO QDAY JUAQUIN Ondansetron HCl (Zofran) 4 mg IV Q8H PRN PRN Reason: Nausea And Vomiting Oxycodone/Acetaminophen (Percocet 5/325) 1 tab PO Q6HR PRN PRN Reason: Pain Pantoprazole Sodium (Protonix) 40 mg PO DAILY JUAQUIN Pravastatin Sodium (Pravachol) 40 mg PO QHS JUAQUIN Pregabalin (Lyrica) 75 mg PO BID JUAQUIN Sodium Chloride (Sodium Chloride Flush Syringe 10 Ml) 10 ml IV BID JUAQUIN Sodium Chloride (Sodium Chloride Flush Syringe 10 Ml) 10 ml IV PRN PRN PRN Reason: LINE FLUSH Review of Systems ROS unobtainable: due to mental status Exam - Vital Signs Vital signs: Vital Signs Temp Pulse Resp BP Pulse Ox 99.1 F 77 16 130/58 97 11/29/18 09:28 11/29/18 09:28 11/29/18 09:28 11/29/18 09:28 11/29/18 09:28 - General Appearance General appearance: other (Arousable, Responds only to simple questions in monosyllables) Neck: Present: neck supple Respiratory: Other (Good air entry) Heart: regular, S1S2 Gastrointestinal: Present: other (Soft) Neurologic: confused Additional exam: +Bruit Lt arm AVF with Aneurysms Results - Lab Results 11/29/18 09:59 11/29/18 09:59 Most recent lab results Calcium 8.9 mg/dL (8.4-10.2) 11/29/18 09:59 Magnesium 2.10 mg/dL (1.7-2.3) 11/29/18 09:59 Assessment and Plan ESRD - HD today & through adm HTN - Review meds & adjust as necessary AMS - F/u Mx
--- NOTE | 2018-11-29 15:01 | XRay Report ---
PROCEDURE: XR CHEST 1V AP TECHNIQUE: Single frontal view of the chest HISTORY: hypertension COMPARISONS: None. FINDINGS: Borderline cardiomegaly. Low lung volumes with streaky atelectasis at the bilateral lung bases. No pleural effusion or pneumot horax. No acute bony or soft tissue abnormality. Vascular stent is seen in the left axillary area. IMPRESSION: Borderline cardiomegaly. Low lung volumes with streaky atelectasis at the bilateral lung bases. This document is electronically signed by Chantel Baca MD., November 29 2018 01:01:22 PM ET
[2018-11-29] MEDS ORDERED: NACL 0.9 (PRIMING MACHINE ONLY DIALYSIS) MC ONE (15:37)
[2018-11-29 15:49] LABS: Hepatitis B Surface Antigen Non-Reactive (Negative); Hepatitis C Virus Antibody Non-Reactive (NonReactive)
[2018-11-29] MEDS: PROCRIT IV PRN (17:30)
[2018-11-29] MEDS: DILAUDID IV PRN (21:00)
[2018-11-29] MEDS: PRAVACHOL PO SCH (21:01)
--- NOTE | 2018-11-30 01:11 | Event Note ---
Date: 11/29/18 See Dictated H/p in reports SIRS RLE Cellulitis ESRD IDDM
[2018-11-30] MEDS ORDERED: MAXIPIME/NS 1 GM/100 ML 1 GM/100 ML BAG IV SCH (02:00)
--- NOTE | 2018-11-30 02:05 | History and Physical Report ---
CHIEF COMPLAINT: Altered sensorium. HISTORY OF PRESENT ILLNESS: A 78-year-old female with history of end-stage renal disease being followed by Dr. Lopez comes in for altered mental status. As per the paramedics, the patient was well at 11:00 p.m. last night. The patient had a recent foot surgery on 11/26/2018. Right third toe was amputated. It was a transmetatarsal amputation. The patient also had an acute left thalamic hemorrhage during that admission. The patient has a dressing on the right foot. No fever. Altered sensorium. No cough. No loss of consciousness. No chest pain. No weakness in the upper and lower extremities. PAST MEDICAL HISTORY: As mentioned, end-stage renal disease, hypertension, cerebrovascular accident in 2014, congestive heart failure, diabetes, insulin-dependent, COPD, sleep apnea, legally blind, left upper arm graft, hypothyroidism, and diabetic neuropathy. PAST SURGICAL HISTORY: Cholecystectomy. SOCIAL HISTORY: Does not smoke. Lives with family. FAMILY HISTORY: Hypertension in mother. CURRENT MEDICATIONS: Include levothyroxine 50 mcg daily, long-acting insulin Levemir 10 units at nighttime, Humalog before each meal, amlodipine 2.5 p.o. daily. Also on Levaquin and doxycycline, which were prescribed on 11/26/2018. MEDICATIONS: On the chart. REVIEW OF SYSTEMS: Altered sensorium, right foot wound. No fever. No shortness of breath. The patient is a dialysis patient. PHYSICAL EXAMINATION: GENERAL: Elderly female, cooperative during examination. During my exam, the patient was alert and oriented to the baseline. VITAL SIGNS: Temperature 98.1, pulse 72, respirations 12, blood pressure 120/63. HEENT: Unremarkable. Pupils are equal and reactive. NECK: Supple, no lymphadenopathy, no thyromegaly. LUNGS: Clear to auscultation and percussion. Good air entry. CARDIOVASCULAR: S1, S2 heard. No gallop, no murmur, no rub. Apical impulse in left fifth intercostal space and midclavicular line. ABDOMEN: Soft and benign. No hepatosplenomegaly, no guarding, no rigidity. Hernial orifices are normal. EXTREMITIES: Right foot third toe amputated. Slight drainage present near the site of amputation. CENTRAL NERVOUS SYSTEM: Alert and oriented x 4. She was not lethargic during my examination. She was able to move all 4 extremities. LABORATORY DATA: Labs are significant for white count of 13,300, H and H of 8.7 and 28.0, platelet count of 269,000. Blood gas shows a pH of 7.328, pCO2 of 51.9, bicarbonate of 27.2. Sodium is 135, potassium is 4.7, chloride is 95.2, BUN and creatinine is 48 and 7.4, glucose is 119 and 293, A1c is 8.5, alkaline phosphatase is 238, ammonia level is 20, total CK is 166, CK-MB is 2.6. Urine not done. Hepatitis profile nonreactive to A, B, C. Chest x-ray: Borderline cardiomegaly, low lung volumes with streaky atelectasis. Head CT: No acute intracranial abnormality. Chronic microvascular ischemic disease in the subcortical and periventricular white matter. ASSESSMENT AND PLAN: 1. Systemic inflammatory response syndrome. The patient qualifies for systemic inflammatory response syndrome criteria. 2. High white count and signs of infection. The patient to be initiated on cefepime and vancomycin. Pending cultures. Also, surgical consult requested. 3. Acute encephalopathy, nearly resolved, probably secondary to systemic inflammatory response syndrome. 4. End-stage renal disease. Continue dialysis. 5. Insulin-dependent diabetes. Continue insulin. 6. Hypertension. Continue antihypertensives. 7. Hyperlipidemia. Continue statins. 8. Chronic pain. Continue with pain management. 9. Hypothyroidism. Continue levothyroxine. JOB# [id number] VSM/NTS
[2018-11-30] MEDS: MAXIPIME/NS 1 GM/100 ML 1 GM/100 ML BAG IV SCH (02:40)
[2018-11-30 07:49] LABS: Albumin 2.8 g/dL (3.9-5); BUN/Creatinine Ratio 6; Blood Urea Nitrogen 27 mg/dL (7-17); Calcium 9.1 mg/dL (8.4-10.2); Hemolysis Index 1
[2018-11-30 08:01] LABS: Alanine Aminotransferase < 5 units/L (7-56)
[2018-11-30] MEDS: PHOSLO PO SCH ×3 (08:02→20:10)
[2018-11-30 08:12] LABS: Basophils # (Auto) 0.1 K/mm3 (0.0-0.1); Basophils % (Auto) 0.7 % (0.0-1.8); Eosinophils # (Auto) 0.1 K/mm3 (0.0-0.4); Eosinophils % (Auto) 1.4 % (0.0-4.3); Hematocrit 27.3 % (30.3-42.9); Hemoglobin 8.5 gm/dl (10.1-14.3); Lymphocytes % (Auto) 9.2 % (13.4-35.0); Mean Corpuscular HGB Conc 31 % (30-34); Mean Corpuscular Volume 75 fl (79-97); Monocytes # (Auto) 0.9 K/mm3 (0.0-0.8); Monocytes % (Auto) 8.8 % (0.0-7.3); Platelet Count 264 K/mm3 (140-440); Red Blood Count 3.62 M/mm3 (3.65-5.03); Red Cell Distribution Width 16.8 % (13.2-15.2)
[2018-11-30] MEDS: NORVASC PO SCH (10:09)
--- NOTE | 2018-11-30 11:17 | Progress Note ---
Assessment and Plan ESRD - Tolerated HD yesterday. Next HD HTN - Continue current meds AMS - Much improved, continue f/u Subjective Date of service: 11/30/18 Objective - Vital Signs Vital signs: Vital Signs - 12hr 11/29/18 11/30/18 11/30/18 23:59 01:02 04:51 Temperature 99.0 F Pulse Rate 65 71 Pulse Rate [ 85 Apical] Respiratory 18 20 Rate Blood Pressure 126/49 Blood Pressure [Left] O2 Sat by Pulse 99 Oximetry 11/30/18 11/30/18 05:22 09:38 Temperature 98.2 F 98.7 F Pulse Rate 70 72 Pulse Rate [ Apical] Respiratory 20 16 Rate Blood Pressure 114/56 Blood Pressure 134/61 [Left] O2 Sat by Pulse 93 92 Oximetry - General Appearance General appearance: other (Awake with improved response) Neck: no JVD Respiratory: Present: Clear to Ascultation Cardiology: regular, S1S2 Gastrointestinal: normal - Lab 11/30/18 07:05 11/30/18 07:05 Most recent lab results Calcium 9.1 mg/dL (8.4-10.2) 11/30/18 07:05 Phosphorus 4.30 mg/dL (2.5-4.5) 11/30/18 07:05 Magnesium 1.80 mg/dL (1.7-2.3) 11/30/18 07:05 Medications & Allergies - Medications Allergies/Adverse Reactions: Allergies Iodinated Contrast- Oral and IV Dye Allergy (Verified 11/25/18 15:48) Hives, Rash Penicillins Allergy (Verified 11/25/18 15:48) Hives Home Medications: Home Medications Medication Instructions Recorded Confirmed Last Taken Type Ezetimibe [Zetia] 10 mg PO HS 05/11/14 11/26/18 11/25/18 20:00 History Levothyroxine [Synthroid] 50 mcg PO DAILY 05/11/14 11/29/18 11/26/18 05:00 History B Complex 11/Folic/C/Biot/Zinc 1 each PO DAILY 09/06/15 11/26/18 11/25/18 20:00 History [Dialyvite with Zinc Tablet] Pravastatin [Pravachol] 40 mg PO QHS 09/06/15 11/29/18 11/25/18 20:00 History Diphenoxylate/Atropine [Lomotil] 1 tab PO Q6H PRN #60 tablet 09/15/15 11/25/18 06/24/17 Rx Calcium Acetate [Phoslo] 667 mg PO TID 06/25/17 11/25/18 06/25/17 History Meloxicam [Mobic] 7.5 mg PO DAILY 06/25/17 11/26/18 11/25/18 09:00 History Pregabalin [Lyrica] 75 mg PO BID 06/25/17 11/29/18 11/25/18 20:00 History Detemir (Nf) [Levemir (Nf)] 10 units SQ QHS PRN 11/25/18 11/25/18 Unknown History Lispro Insulin [Humalog] 0 unit SQ AC 11/25/18 11/25/18 Unknown History Oxycodone HCl [Roxicodone] 5 mg PO DAILY PRN 11/25/18 11/26/18 11/25/18 10:00 History Pantoprazole Sodium 40 mg PO DAILY 11/25/18 11/29/18 11/26/18 05:00 History amLODIPine [Norvasc] 2.5 mg PO DAILY 11/25/18 11/26/18 11/26/18 05:00 History levoFLOXacin [Levaquin TAB] 250 mg PO DAILY 11/25/18 11/26/18 11/25/18 15:30 History Doxycycline [Vibramycin CAP] 100 mg PO Q12HR 14 Days #28 capsule 11/26/18 Unknown Rx oxyCODONE /ACETAMINOPHEN [Percocet 1 tab PO Q6HR PRN #30 tablet 11/26/18 Unknown Rx 5/325] Omeprazole 11/29/18 Unknown History levoFLOXacin [Levaquin TAB] 500 mg PO 11/29/18 Unknown History Active Medications: Generic Name Dose Route Start Last Admin Trade Name Freq PRN Reason Stop Dose Admin Acetaminophen 650 mg 11/29/18 11:39 Tylenol PO Q4H PRN Pain MILD(1-3)/Fever >100.5/DALE Amlodipine Besylate 2.5 mg 11/29/18 12:00 Norvasc PO DAILY JUAQUIN Calcium Acetate 667 mg 11/29/18 14:00 11/30/18 08:02 Phoslo PO 667 mg TID JUAQUIN Administration Epoetin Quincy 10,000 unit 11/29/18 12:25 11/29/18 17:30 Procrit IV 10,000 unit ANNI PRN Administration hemodialysis Heparin Sodium (Porcine) 5,000 unit 11/29/18 12:25 Heparin IV ANNI PRN hemodialysis Heparin Sodium (Porcine) 2,000 unit 11/29/18 12:25 Heparin 10,000 Units/10 Ml IV ANNI PRN hemodialysis Hydromorphone HCl 0.5 mg 11/29/18 11:39 11/29/18 21:00 Dilaudid IV 0.5 mg Q3H PRN Administration Pain , Severe (7-10) Sodium Chloride 100 mls @ 999 mls/hr 11/29/18 12:25 Nacl 0.9% IV ANIN PRN Hypotension Cefepime HCl 1 gm in 100 mls @ 200 mls/hr 11/30/18 02:00 11/30/18 02:40 Maxipime/Ns 1 Gm/100 Ml IV 200 mls/hr Q24H JUAQUIN Administration Protocol Insulin Glargine 10 units 11/29/18 11:52 Lantus SUB-Q QHS PRN HYPERGLYCEMIC Levothyroxine Sodium 50 mcg 11/29/18 12:00 11/29/18 13:26 Synthroid PO 50 mcg DAILY JUAQUIN Administration Metoclopramide HCl 10 mg 11/29/18 11:39 Reglan IV Q6H PRN Nausea And Vomiting Multivit/Ca Carb/B Cmplx/FA/Prenat 1 cap 11/29/18 14:00 11/29/18 13:27 Renal Caps PO 1 cap QDAY JUAQUIN Administration Ondansetron HCl 4 mg 11/29/18 11:39 Zofran IV Q8H PRN Nausea And Vomiting Oxycodone/Acetaminophen 1 tab 11/29/18 11:34 Percocet 5/325 PO Q6HR PRN Pain Pantoprazole Sodium 40 mg 11/29/18 12:00 11/29/18 13:26 Protonix PO 40 mg DAILY JUAQUIN Administration Pravastatin Sodium 40 mg 11/29/18 22:00 11/29/18 21:01 Pravachol PO 40 mg QHS JUAQUIN Administration Pregabalin 75 mg 11/29/18 12:00 11/29/18 21:01 Lyrica PO 75 mg BID JUAQUIN Administration Sodium Chloride 10 ml 11/29/18 12:00 Sodium Chloride Flush Syringe 10 Ml IV BID JUAQUIN Sodium Chloride 10 ml 11/29/18 11:39 Sodium Chloride Flush Syringe 10 Ml IV PRN PRN LINE FLUSH
[2018-11-30] MEDS: Renal Caps PO SCH (11:35)
[2018-11-30] MEDS: LYRICA PO SCH ×2 (11:35→22:00)
[2018-11-30] MEDS: SYNTHROID PO SCH (11:36)
[2018-11-30] MEDS: PROTONIX PO SCH (11:36)
[2018-11-30] MEDS ORDERED: VANCOMYCIN/NS 1 GM/250 ML 1 GM/250 ML BAG IV ONE (12:00)
[2018-11-30] MEDS ORDERED: DULCOLAX PR ONE (13:30)
[2018-11-30] MEDS: PERCOCET 5/325 PO PRN (14:40)
--- NOTE | 2018-11-30 14:47 | Progress Note ---
Assessment and Plan Assessment and plan: Patient is a 78 yo woman with a history of blindness, ESRD on HD TTS, hypertension, CVA, CHF, IDDM, COPD, GILBERTO on bipap and hypothyriodism who presents to [facility] ED with AMS. She was admitted for SIRS -Acute metabolic encephalopathy, appears back to baseline per Daughter Sarah at bedside. Neurology is following -SIRs w/o organ dysfunction, elevated WBC resolved on abx -GILBERTO: consulted Respiratory, ok for patient to bring in home bipap -Atelectasis: nebs and incentive spirometry -ESRD on HD: Nephrology following -IDDM: continue insulin, add SSI -Hypothyroidism: continue synthroid -DVT ppx History Interval history: Patient was seen and examined. Follow-up on current diagnosis of AMS. Overnight uneventful. Patient denies any chest pain, shortness breath, nausea/vomiting or severe headaches. Imaging, nursing note, chart, labs and old chart reviewed. Discussed with patient. Hospitalist Physical - Physical exam Narrative exam: Gen: WDWN, NAD, Awake, Alert, Orientated x 3 HEENT: NCAT, EOMI, PERRL, OP Clear Neck: supple, no adenopathy, no thyromegaly, no JVD CVS/Heart: RRR, normal S1S2, pulses present bilaterally Chest/Lungs: CTA B, Symmetrical chest expansion, good air entry bilaterally GI/Abdomen: soft, NTND, good bowel sounds, no guarding or rebound /Bladder: no suprapubic tenderness, no CVA or paraspinal tenderness Extermity/Skin: no c/c/e, no obvious rash MSK: FROM x 4 Neuro: CN 2-12 grossly intact except vision, no new focal deficits Psych: calm - Constitutional Vitals: Temp Pulse Resp BP Pulse Ox 98.7 F 72 16 134/61 92 11/30/18 09:38 11/30/18 09:38 11/30/18 09:38 11/30/18 09:38 11/30/18 09:38 Results - Labs CBC & Chem 7: 11/30/18 07:05 11/30/18 07:05 Labs: Laboratory Last Values WBC 10.3 K/mm3 (4.5-11.0) 11/30/18 07:05 RBC 3.62 M/mm3 (3.65-5.03) L 11/30/18 07:05 Hgb 8.5 gm/dl (10.1-14.3) L 11/30/18 07:05 Hct 27.3 % (30.3-42.9) L 11/30/18 07:05 MCV 75 fl (79-97) L 11/30/18 07:05 MCH 24 pg (28-32) L 11/30/18 07:05 MCHC 31 % (30-34) 11/30/18 07:05 RDW 16.8 % (13.2-15.2) H 11/30/18 07:05 Plt Count 264 K/mm3 (140-440) 11/30/18 07:05 Lymph % (Auto) 9.2 % (13.4-35.0) L 11/30/18 07:05 [place] % (Auto) 8.8 % (0.0-7.3) H 11/30/18 07:05 Eos % (Auto) 1.4 % (0.0-4.3) 11/30/18 07:05 Baso % (Auto) 0.7 % (0.0-1.8) 11/30/18 07:05 Lymph # 1.0 K/mm3 (1.2-5.4) L 11/30/18 07:05 [place] # 0.9 K/mm3 (0.0-0.8) H 11/30/18 07:05 Eos # 0.1 K/mm3 (0.0-0.4) 11/30/18 07:05 Baso # 0.1 K/mm3 (0.0-0.1) 11/30/18 07:05 Seg Neutrophils % 79.9 % (40.0-70.0) H 11/30/18 07:05 Seg Neutrophils # 8.2 K/mm3 (1.8-7.7) H 11/30/18 07:05 PT 15.1 Sec. (12.2-14.9) H 11/29/18 09:59 INR 1.12 (0.87-1.13) 11/29/18 09:59 APTT 32.0 Sec. (24.2-36.6) 11/29/18 09:59 POC ABG pH 7.328 (7.35-7.45) L 11/29/18 11:28 POC ABG pCO2 51.9 (35-45) H 11/29/18 11:28 POC ABG pO2 89 (80-105) 11/29/18 11:28 POC ABG HCO3 27.2 (22-26 mml/L) 11/29/18 11:28 POC ABG Total CO2 29 (23-27mmol/L) 11/29/18 11:28 POC ABG O2 Sat 96 11/29/18 11:28 POC ABG Base Excess 1 ((-2) - (+3)mmol/L) 11/29/18 11:28 FiO2 36 % 11/29/18 11:28 Sodium 134 mmol/L (137-145) L 11/30/18 07:05 Potassium 4.2 mmol/L (3.6-5.0) 11/30/18 07:05 Chloride 92.3 mmol/L (98-107) L 11/30/18 07:05 Carbon Dioxide 26 mmol/L (22-30) 11/30/18 07:05 Anion Gap 20 mmol/L 11/30/18 07:05 BUN 27 mg/dL (7-17) H 11/30/18 07:05 Creatinine 4.7 mg/dL (0.7-1.2) H 11/30/18 07:05 Estimated GFR 11 ml/min 11/30/18 07:05 BUN/Creatinine Ratio 6 % 11/30/18 07:05 Glucose 289 mg/dL (65-100) H 11/30/18 07:05 POC Glucose 336 (70-105) H 11/30/18 12:02 Hemoglobin A1c 8.5 % (4-6) H 11/29/18 09:59 Lactic Acid 1.10 mmol/L (0.7-2.0) 11/29/18 21:19 Calcium 9.1 mg/dL (8.4-10.2) 11/30/18 07:05 Phosphorus 4.30 mg/dL (2.5-4.5) 11/30/18 07:05 Magnesium 1.80 mg/dL (1.7-2.3) 11/30/18 07:05 Total Bilirubin 0.30 mg/dL (0.1-1.2) 11/30/18 07:05 Direct Bilirubin < 0.2 mg/dL (0-0.2) 11/29/18 09:59 Indirect Bilirubin 0.0 mg/dL 11/29/18 09:59 AST 24 units/L (5-40) 11/30/18 07:05 ALT < 5 units/L (7-56) L 11/30/18 07:05 Alkaline Phosphatase 195 units/L (35-129) H 11/30/18 07:05 Ammonia 20.0 umol/L (25-60) L 11/29/18 11:27 Total Creatine Kinase 166 units/L (30-135) H 11/29/18 09:59 CK-MB (CK-2) 2.6 ng/mL (0.0-4.0) 11/29/18 09:59 CK-MB (CK-2) Rel Index 1.5 (0-4) 11/29/18 09:59 Troponin T 0.128 ng/mL (0.00-0.029) H* 11/29/18 09:59 NT-Pro-B Natriuret Pep 44841 pg/mL (0-900) H 11/29/18 09:59 Total Protein 6.1 g/dL (6.3-8.2) L 11/30/18 07:05 Albumin 2.8 g/dL (3.9-5) L 11/30/18 07:05 Albumin/Globulin Ratio 0.8 % 11/30/18 07:05 Triglycerides 39 mg/dL (2-149) 11/29/18 09:59 Cholesterol 73 mg/dL (50-199) 11/29/18 09:59 LDL Cholesterol Direct 19 mg/dL (50-130) L 11/29/18 09:59 HDL Cholesterol 42 mg/dL (40-59) 11/29/18 09:59 Cholesterol/HDL Ratio 1.73 % 11/29/18 09:59 Hepatitis A IgM Ab Non-reactive (NonReactive) 11/29/18 14:31 Hep Bs Antigen Non-reactive (Negative) 11/29/18 14:31 Hep B Core IgM Ab Non-reactive (NonReactive) 11/29/18 14:31 Hepatitis C Antibody Non-reactive (NonReactive) 11/29/18 14:31 Active Medications - Current Medications Current Medications: Generic Name Dose Route Start Last Admin Trade Name Freq PRN Reason Stop Dose Admin Acetaminophen 650 mg 11/29/18 11:39 Tylenol PO Q4H PRN Pain MILD(1-3)/Fever >100.5/DALE Amlodipine Besylate 2.5 mg 11/29/18 12:00 11/30/18 10:09 Norvasc PO 2.5 mg DAILY JUAQUIN Administration Calcium Acetate 667 mg 11/29/18 14:00 11/30/18 14:43 Phoslo PO 667 mg TID JUAQUIN Administration Epoetin [place] 10,000 unit 11/29/18 12:25 11/29/18 17:30 Procrit IV 10,000 unit ANNI PRN Administration hemodialysis Heparin Sodium (Porcine) 5,000 unit 11/29/18 12:25 Heparin IV ANNI PRN hemodialysis Heparin Sodium (Porcine) 2,000 unit 11/29/18 12:25 Heparin 10,000 Units/10 Ml IV ANNI PRN hemodialysis Hydromorphone HCl 0.5 mg 11/29/18 11:39 11/29/18 21:00 Dilaudid IV 0.5 mg Q3H PRN Administration Pain , Severe (7-10) Sodium Chloride 100 mls @ 999 mls/hr 11/29/18 12:25 Nacl 0.9% IV ANNI PRN Hypotension Cefepime HCl 1 gm in 100 mls @ 200 mls/hr 11/30/18 02:00 11/30/18 02:40 Maxipime/Ns 1 Gm/100 Ml IV 200 mls/hr Q24H JUAQUIN Administration Protocol Insulin Glargine 10 units 11/29/18 11:52 Lantus SUB-Q QHS PRN HYPERGLYCEMIC Levothyroxine Sodium 50 mcg 11/29/18 12:00 11/30/18 11:36 Synthroid PO 50 mcg DAILY JUAQUIN Administration Metoclopramide HCl 10 mg 11/29/18 11:39 Reglan IV Q6H PRN Nausea And Vomiting Multivit/Ca Carb/B Cmplx/FA/Prenat 1 cap 11/29/18 14:00 11/30/18 11:35 Renal Caps PO 1 cap QDAY JUAQUIN Administration Ondansetron HCl 4 mg 11/29/18 11:39 Zofran IV Q8H PRN Nausea And Vomiting Oxycodone/Acetaminophen 1 tab 11/29/18 11:34 11/30/18 14:40 Percocet 5/325 PO 1 tab Q6HR PRN Administration Pain Pantoprazole Sodium 40 mg 11/29/18 12:00 11/30/18 11:36 Protonix PO 40 mg DAILY JUAQUIN Administration Pravastatin Sodium 40 mg 11/29/18 22:00 11/29/18 21:01 Pravachol PO 40 mg QHS JUAQUIN Administration Pregabalin 75 mg 11/29/18 12:00 11/30/18 11:35 Lyrica PO 75 mg BID JUAQUIN Administration Sodium Chloride 10 ml 11/29/18 12:00 Sodium Chloride Flush Syringe 10 Ml IV BID JUAQUIN Sodium Chloride 10 ml 11/29/18 11:39 Sodium Chloride Flush Syringe 10 Ml IV PRN PRN LINE FLUSH
[2018-11-30] MEDS: SODIUM CHLORIDE FLUSH SYRINGE 10 ML IV SCH (21:46)
[2018-11-30] MEDS: PRAVACHOL PO SCH (21:46)
[2018-12-01] MEDS: MAXIPIME/NS 1 GM/100 ML 1 GM/100 ML BAG IV SCH (02:37)
[2018-12-01 06:04] LABS: Hematocrit 28.2 % (30.3-42.9); Hemoglobin 9.1 gm/dl (10.1-14.3); Mean Corpuscular HGB Conc 32 % (30-34); Mean Corpuscular Volume 74 fl (79-97); Platelet Count 286 K/mm3 (140-440); Red Cell Distribution Width 17.3 % (13.2-15.2)
[2018-12-01 06:28] LABS: Calcium 9.1 mg/dL (8.4-10.2)
[2018-12-01] MEDS: Renal Caps PO SCH (09:33)
[2018-12-01] MEDS: PHOSLO PO SCH ×3 (09:33→20:50)
[2018-12-01] MEDS: SYNTHROID PO SCH (09:33)
[2018-12-01] MEDS: PROTONIX PO SCH (09:33)
[2018-12-01] MEDS: NORVASC PO SCH ×2 (09:33→09:37)
[2018-12-01] MEDS: REGLAN IV PRN (09:35)
[2018-12-01] MEDS: LYRICA PO SCH ×2 (09:35→21:13)
[2018-12-01] MEDS: DILAUDID IV PRN ×2 (09:35→20:18)
[2018-12-01] MEDS: SODIUM CHLORIDE FLUSH SYRINGE 10 ML IV SCH ×3 (09:36→22:00)
--- NOTE | 2018-12-01 13:13 | Progress Note ---
Assessment and Plan 1. ESRD: Continue hemodialysis three times a week, TTS schedule. HD tomorrow. 2. SIRS: Right LE cellulitis. S/p recent amputation of right middle toe. 3. Acute metabolic encephalopathy: Improved. 4. Anemia: Epogen with HD. 5. GILBERTO: CPAP. 6. DM type 2. 7. HTN. Bisacodyl and Miralax ordered. D/w her daughter at the bedside. Subjective Date of service: 12/01/18 Interval history: Patient was seen and examined at the bedside. C/o constipation. Objective - Vital Signs Vital signs: Vital Signs - 12hr 12/01/18 12/01/18 12/01/18 03:43 05:30 08:39 Temperature 98.0 F Pulse Rate 69 66 60 Respiratory 18 Rate Blood Pressure 115/49 121/51 O2 Sat by Pulse 100 90 Oximetry 12/01/18 12/01/18 09:33 09:37 Temperature Pulse Rate 60 60 Respiratory Rate Blood Pressure 121/51 121/51 O2 Sat by Pulse Oximetry - General Appearance General appearance: well-developed, well-nourished, appears stated age, other (not in distress) EENT: ATNC Neck: supple Respiratory: Present: Clear to Ascultation Cardiology: regular, S1S2, no murmurs Gastrointestinal: normoactive bowel sounds, no tenderness, no distended Integumentary: other (right foot covered with dressing) Neurologic: no focal deficit, no asterixis Musculoskeletal: other (no edema, left arm AVF) Psychiatric: cooperative - Lab 12/01/18 05:06 12/01/18 19:19 Most recent lab results Calcium 9.1 mg/dL (8.4-10.2) 12/01/18 05:06 Phosphorus 4.30 mg/dL (2.5-4.5) 11/30/18 07:05 Magnesium 1.80 mg/dL (1.7-2.3) 11/30/18 07:05 Medications & Allergies - Medications Allergies/Adverse Reactions: Allergies Iodinated Contrast- Oral and IV Dye Allergy (Verified 11/25/18 15:48) Hives, Rash Penicillins Allergy (Verified 11/25/18 15:48) Hives Home Medications: Home Medications Medication Instructions Recorded Confirmed Last Taken Type Ezetimibe [Zetia] 10 mg PO HS 09/05/1611/26/18 11/25/18 20:00 History Levothyroxine [Synthroid] 50 mcg PO DAILY 05/11/14 11/29/18 11/26/18 05:00 Hist ory B Complex 11/Folic/C/Biot/Zinc 1 each PO DAILY 09/06/15 11/26/18 11/25/18 20:00 History [Dialyvite with Zinc Tablet] Pravastatin [Pravachol] 40 mg PO QHS 09/06/15 11/29/18 11/25/18 20:00 History Diphenoxylate/Atropine [Lomotil] 1 tab PO Q6H PRN #60 tablet 09/15/15 11/25/18 06/24/17 Rx Calcium Acetate [Phoslo] 667 mg PO TID 06/25/17 11/25/18 06/25/17 History Meloxicam [Mobic] 7.5 mg PO DAILY 06/25/17 11/26/18 11/25/18 09:00 History Pregabalin [Lyrica] 75 mg PO BID 06/25/17 11/29/18 11/25/18 20:00 History Detemir (Nf) [Levemir (Nf)] 10 units SQ QHS PRN 11/25/18 11/25/18 Unknown History Lispro Insulin [Humalog] 0 unit SQ AC 11/25/18 11/25/18 Unknown History Oxycodone HCl [Roxicodone] 5 mg PO DAILY PRN 11/25/18 11/26/18 11/25/18 10:00 History Pantoprazole Sodium 40 mg PO DAILY 11/25/18 11/29/18 11/26/18 05:00 History amLODIPine [Norvasc] 2.5 mg PO DAILY 11/25/18 11/26/18 11/26/18 05:00 History levoFLOXacin [Levaquin TAB] 250 mg PO DAILY 11/25/18 11/26/18 11/25/18 15:30 History Doxycycline [Vibramycin CAP] 100 mg PO Q12HR 14 Days #28 capsule 11/26/18 U nknown Rx oxyCODONE /ACETAMINOPHEN [Percocet 1 tab PO Q6HR PRN #30 tablet 11/26/18 Unknown Rx 5/325] Omeprazole 11/29/18 Unknown History levoFLOXacin [Levaquin TAB] 500 mg PO 11/29/18 Unknown History Active Medications: Generic Name Dose Route Start Last Admin Trade Name Freq PRN Reason Stop Dose Admin Acetaminophen 650 mg 11/29/18 11:39 Tylenol PO Q4H PRN Pain MILD(1-3)/Fever >100.5/DALE Amlodipine Besylate 2.5 mg 11/29/18 12:00 12/01/18 09:37 Norvasc PO 2.5 mg DAILY JUAQUIN Administration Calcium Acetate 667 mg 11/29/18 14:00 12/01/18 09:33 Phoslo PO 667 mg TID JUAQUIN Administration Epoetin [place] 10,000 unit 11/29/18 12:25 11/29/18 17:30 Procrit IV 10,000 unit ANNI PRN Administration hemodialysis Heparin Sodium (Porcine) 5,000 unit 11/29/18 12:25 Heparin IV ANNI PRN hemodialysis Heparin Sodium (Porcine) 2,000 unit 11/29/18 12:25 Heparin 10,000 Units/10 Ml IV ANNI PRN hemodialysis Hydromorphone HCl 0.5 mg 11/29/18 11:39 12/01/18 09:35 Dilaudid IV 0.5 mg Q3H PRN Administration Pain , Severe (7-10) Sodium Chloride 100 mls @ 999 mls/hr 11/29/18 12:25 Nacl 0.9% IV ANNI PRN Hypotension Cefepime HCl 1 gm in 100 mls @ 200 mls/hr 11/30/18 02:00 12/01/18 02:37 Maxipime/Ns 1 Gm/100 Ml IV 200 mls/hr Q24H JUAQUIN Administration Protocol Insulin Glargine 10 units 11/29/18 11:52 Lantus SUB-Q QHS PRN HYPERGLYCEMIC Levothyroxine Sodium 50 mcg 11/29/18 12:00 12/01/18 09:33 Synthroid PO 50 mcg DAILY JUAQUIN Administration Metoclopramide HCl 10 mg 11/29/18 11:39 12/01/18 09:35 Reglan IV 10 mg Q6H PRN Administration Nausea And Vomiting Multivit/Ca Carb/B Cmplx/FA/Prenat 1 cap 11/29/18 14:00 12/01/18 09:33 Renal Caps PO 1 cap QDAY JUAQUIN Administration Ondansetron HCl 4 mg 11/29/18 11:39 Zofran IV Q8H PRN Nausea And Vomiting Oxycodone/Acetaminophen 1 tab 11/29/18 11:34 11/30/18 14:40 Percocet 5/325 PO 1 tab Q6HR PRN Administration Pain Pantoprazole Sodium 40 mg 11/29/18 12:00 12/01/18 09:33 Protonix PO 40 mg DAILY JUAQUIN Administration Pravastatin Sodium 40 mg 11/29/18 22:00 11/30/18 21:46 Pravachol PO 40 mg QHS JUAQUIN Administration Pregabalin 75 mg 11/29/18 12:00 12/01/18 09:35 Lyrica PO 75 mg BID JUAQUIN Administration Sodium Chloride 10 ml 11/29/18 12:00 12/01/18 09:36 Sodium Chloride Flush Syringe 10 Ml IV 10 ml BID JUAQUIN Administration Sodium Chloride 10 ml 11/29/18 11:39 Sodium Chloride Flush Syringe 10 Ml IV PRN PRN LINE FLUSH
[2018-12-01] MEDS ORDERED: DULCOLAX PR ONE (15:00)
[2018-12-01] MEDS ORDERED: D50W (25GM) Syringe IV PRN (15:06)
--- NOTE | 2018-12-01 15:36 | Progress Note ---
Assessment and Plan Assessment and plan: Patient is a 78 yo woman with a history of blindness, ESRD on HD TTS, hypertension, CVA, CHF, IDDM, COPD, GILBERTO on bipap and hypothyriodism who presents to [facility] ED with AMS. She was admitted for SIRS INITIAL CONSULT OF THIS RIGHT FOOT 3RD TOE AMPUTATION SITE. SURGICAL WOUND. HISTORY OF DIABETES. PATIENT HAD SURGERY HERE WITH DR MUNOZ 2 WEEKS AGO. MODERATE AMOUNT OF SEROSANGUINEOUS DRAINAGE NOTED. WOUND MEASURES 4X2X4. THERE IS BONE EXPOSED. FOOT IS VERY PAINFUL TO TOUCH. EDEMATOUS. NO ODOR. WOUND IS NECROTIC. CLEANSED WITH WOUND CLEANSER. PACKED WITH ALGINATE. COVERED WITH 4X4 GAUZE, WRAPPED WITH BELIA. RECOMMEND FURTHER SURGICAL DEBRIDEMENT. WILL CONSULT SURGERY FOR EVALUATION. -Acute metabolic encephalopathy, appears back to baseline per Daughter Sarah at bedside. Neurology is following -Sepsis, poa s/p 3rd toe amputation site infection: After seeing the site, I called Dr. Munoz but he did not answer. ?Osteomyelitis. The necrosis around the site needs debridement, consult Ortho instead of GS because of the bone exposure. (i called Dr. Maxwell cell then office and spoke with him==> he will see, recommends xray. I also consulted ID for antibiotic management. -GILBERTO: consulted Respiratory, ok for patient to bring in home bipap -Atelectasis: nebs and incentive spirometry -ESRD on HD: Nephrology following -IDDM: continue insulin, add SSI -Hypothyroidism: continue synthroid -DVT ppx History Interval history: Patient was seen and examined. Follow-up on current diagnosis of AMS, resolved. Overnight uneventful. Patient denies any chest pain, shortness breath, nausea/v omiting or severe headaches. Imaging, nursing note, chart, labs and old chart reviewed. Discussed with patient. Daughter Brianda Mcgill at bedside. Hospitalist Physical - Physical exam Narrative exam: Gen: WDWN, NAD, Awake, Alert, Orientated x 3 HEENT: NCAT, EOMI, PERRL, OP Clear Neck: supple, no adenopathy, no thyromegaly, no JVD CVS/Heart: RRR, normal S1S2, pulses present bilaterally Chest/Lungs: CTA B, Symmetrical chest expansion, good air entry bilaterally GI/Abdomen: soft, NTND, good bowel sounds, no guarding or rebound /Bladder: no suprapubic tenderness, no CVA or paraspinal tenderness Extermity/Skin: no c/c/e, no obvious rash, removed the right foot dressing and found the following per wound care: necrosis around the 3rd toe amputation site, with BONE EXPOSure. FOOT IS VERY PAINFUL TO TOUCH. EDEMATOUS. NO ODOR. WOUND IS NECROTIC. MSK: FROM x 4 Neuro: CN 2-12 grossly intact except vision, no new focal deficits Psych: calm - Constitutional Vitals: Temp Pulse Resp BP Pulse Ox 98.0 F 60 18 121/51 96 12/01/18 03:43 12/01/18 09:37 12/01/18 03:43 12/01/18 09:37 12/01/18 14:09 Results - Labs CBC & Chem 7: 12/01/18 05:06 12/01/18 05:06 Labs: Laboratory Last Values WBC 10.7 K/mm3 (4.5-11.0) 12/01/18 05:06 RBC 3.80 M/mm3 (3.65-5.03) 12/01/18 05:06 Hgb 9.1 gm/dl (10.1-14.3) L 12/01/18 05:06 Hct 28.2 % (30.3-42.9) L 12/01/18 05:06 MCV 74 fl (79-97) L 12/01/18 05:06 MCH 24 pg (28-32) L 12/01/18 05:06 MCHC 32 % (30-34) 12/01/18 05:06 RDW 17.3 % (13.2-15.2) H 12/01/18 05:06 Plt Count 286 K/mm3 (140-440) 12/01/18 05:06 Lymph % (Auto) 9.2 % (13.4-35.0) L 11/30/18 07:05 [place] % (Auto) 8.8 % (0.0-7.3) H 11/30/18 07:05 Eos % (Auto) 1.4 % (0.0-4.3) 11/30/18 07:05 Baso % (Auto) 0.7 % (0.0-1.8) 11/30/18 07:05 Lymph # 1.0 K/mm3 (1.2-5.4) L 11/30/18 07:05 [place] # 0.9 K/mm3 (0.0-0.8) H 11/30/18 07:05 Eos # 0.1 K/mm3 (0.0-0.4) 11/30/18 07:05 Baso # 0.1 K/mm3 (0.0-0.1) 11/30/18 07:05 Seg Neutrophils % 79.9 % (40.0-70.0) H 11/30/18 07:05 Seg Neutrophils # 8.2 K/mm3 (1.8-7.7) H 11/30/18 07:05 PT 15.1 Sec. (12.2-14.9) H 11/29/18 09:59 INR 1.12 (0.87-1.13) 11/29/18 09:59 APTT 32.0 Sec. (24.2-36.6) 11/29/18 09:59 POC ABG pH 7.328 (7.35-7.45) L 11/29/18 11:28 POC ABG pCO2 51.9 (35-45) H 11/29/18 11:28 POC ABG pO2 89 (80-105) 11/29/18 11:28 POC ABG HCO3 27.2 (22-26 mml/L) 11/29/18 11:28 POC ABG Total CO2 29 (23-27mmol/L) 11/29/18 11:28 POC ABG O2 Sat 96 11/29/18 11:28 POC ABG Base Excess 1 ((-2) - (+3)mmol/L) 11/29/18 11:28 FiO2 36 % 11/29/18 11:28 Sodium 138 mmol/L (137-145) 12/01/18 05:06 Potassium 4.3 mmol/L (3.6-5.0) 12/01/18 05:06 Chloride 96.2 mmol/L (98-107) L 12/01/18 05:06 Carbon Dioxide 26 mmol/L (22-30) 12/01/18 05:06 Anion Gap 20 mmol/L 12/01/18 05:06 BUN 41 mg/dL (7-17) H 12/01/18 05:06 Creatinine 6.9 mg/dL (0.7-1.2) H 12/01/18 05:06 Estimated GFR 7 ml/min 12/01/18 05:06 BUN/Creatinine Ratio 6 % 12/01/18 05:06 Glucose 170 mg/dL (65-100) H 12/01/18 05:06 POC Glucose 194 (70-105) H 12/01/18 08:45 Hemoglobin A1c 8.5 % (4-6) H 11/29/18 09:59 Lactic Acid 1.10 mmol/L (0.7-2.0) 11/29/18 21:19 Calcium 9.1 mg/dL (8.4-10.2) 12/01/18 05:06 Phosphorus 4.30 mg/dL (2.5-4.5) 11/30/18 07:05 Magnesium 1.80 mg/dL (1.7-2.3) 11/30/18 07:05 Total Bilirubin 0.30 mg/dL (0.1-1.2) 11/30/18 07:05 Direct Bilirubin < 0.2 mg/dL (0-0.2) 11/29/18 09:59 Indirect Bilirubin 0.0 mg/dL 11/29/18 09:59 AST 24 units/L (5-40) 11/30/18 07:05 ALT < 5 units/L (7-56) L 11/30/18 07:05 Alkaline Phosphatase 195 units/L (35-129) H 11/30/18 07:05 Ammonia 20.0 umol/L (25-60) L 11/29/18 11:27 Total Creatine Kinase 166 units/L (30-135) H 11/29/18 09:59 CK-MB (CK-2) 2.6 ng/mL (0.0-4.0) 11/29/18 09:59 CK-MB (CK-2) Rel Index 1.5 (0-4) 11/29/18 09:59 Troponin T 0.128 ng/mL (0.00-0.029) H* 11/29/18 09:59 NT-Pro-B Natriuret Pep 24559 pg/mL (0-900) H 11/29/18 09:59 Total Protein 6.1 g/dL (6.3-8.2) L 11/30/18 07:05 Albumin 2.8 g/dL (3.9-5) L 11/30/18 07:05 Albumin/Globulin Ratio 0.8 % 11/30/18 07:05 Triglycerides 39 mg/dL (2-149) 11/29/18 09:59 Cholesterol 73 mg/dL (50-199) 11/29/18 09:59 LDL Cholesterol Direct 19 mg/dL (50-130) L 11/29/18 09:59 HDL Cholesterol 42 mg/dL (40-59) 11/29/18 09:59 Cholesterol/HDL Ratio 1.73 % 11/29/18 09:59 Hepatitis A IgM Ab Non-reactive (NonReactive) 11/29/18 14:31 Hep Bs Antigen Non-reactive (Negative) 11/29/18 14:31 Hep B Core IgM Ab Non-reactive (NonReactive) 11/29/18 14:31 Hepatitis C Antibody Non-reactive (NonReactive) 11/29/18 14:31 Active Medications - Current Medications Current Medications: Generic Name Dose Route Start Last Admin Trade Name Booneq PRN Reason Stop Dose Admin Acetaminophen 650 mg 11/29/18 11:39 Tylenol PO Q4H PRN Pain MILD(1-3)/Fever >100.5/DALE Amlodipine Besylate 2.5 mg 11/29/18 12:00 12/01/18 09:37 Norvasc PO 2.5 mg DAILY JUAQUIN Administration Calcium Acetate 667 mg 11/29/18 14:00 12/01/18 14:13 Phoslo PO 667 mg TID JUAQUIN Administration Dextrose 50 ml 12/01/18 15:06 D50w (25gm) Syringe IV PRN PRN Hypoglycemia Epoetin Quincy 10,000 unit 11/29/18 12:25 11/29/18 17:30 Procrit IV 10,000 unit ANNI PRN Administration hemodialysis Heparin Sodium (Porcine) 5,000 unit 11/29/18 12:25 Heparin IV ANNI PRN hemodialysis Heparin Sodium (Porcine) 2,000 unit 11/29/18 12:25 Heparin 10,000 Units/10 Ml IV ANNI PRN hemodialysis Hydromorphone HCl 0.5 mg 11/29/18 11:39 12/01/18 09:35 Dilaudid IV 0.5 mg Q3H PRN Administration Pain , Severe (7-10) Sodium Chloride 100 mls @ 999 mls/hr 11/29/18 12:25 Nacl 0.9% IV ANNI PRN Hypotension Cefepime HCl 1 gm in 100 mls @ 200 mls/hr 11/30/18 02:00 12/01/18 02:37 Maxipime/Ns 1 Gm/100 Ml IV 200 mls/hr Q24H JUAQUIN Administration Protocol Insulin Glargine 10 units 11/29/18 11:52 Lantus SUB-Q QHS PRN HYPERGLYCEMIC Insulin Human Lispro 0 unit 12/01/18 16:30 Humalog SUB-Q ACHS [facility] Protocol Levothyroxine Sodium 50 mcg 11/29/18 12:00 12/01/18 09:33 Synthroid PO 50 mcg DAILY JUAQUIN Administration Metoclopramide HCl 10 mg 11/29/18 11:39 12/01/18 09:35 Reglan IV 10 mg Q6H PRN Administration Nausea And Vomiting Multivit/Ca Carb/B Cmplx/FA/Prenat 1 cap 11/29/18 14:00 12/01/18 09:33 Renal Caps PO 1 cap QDAY JUAQUIN Administration Ondansetron HCl 4 mg 11/29/18 11:39 Zofran IV Q8H PRN Nausea And Vomiting Oxycodone/Acetaminophen 1 tab 11/29/18 11:34 11/30/18 14:40 Percocet 5/325 PO 1 tab Q6HR PRN Administration Pain Pantoprazole Sodium 40 mg 11/29/18 12:00 12/01/18 09:33 Protonix PO 40 mg DAILY JUAQUIN Administration Polyethylene Glycol 17 gm 12/01/18 15:00 Miralax 3350 PO QDAY JUAQUIN Pravastatin Sodium 40 mg 11/29/18 22:00 11/30/18 21:46 Pravachol PO 40 mg QHS JUAQUIN Administration Pregabalin 75 mg 11/29/18 12:00 12/01/18 09:35 Lyrica PO 75 mg BID JUAQUIN Administration Sodium Chloride 10 ml 11/29/18 12:00 12/01/18 09:36 Sodium Chloride Flush Syringe 10 Ml IV 10 ml BID JUAQUIN Administration Sodium Chloride 10 ml 11/29/18 11:39 Sodium Chloride Flush Syringe 10 Ml IV PRN PRN LINE FLUSH
[2018-12-01] MEDS: MIRALAX 3350 PO SCH (16:08)
[2018-12-01] MEDS: HumaLOG SUB-Q SCH ×3 (16:14→22:00)
--- NOTE | 2018-12-01 17:26 | XRay Report ---
PROCEDURE: XR FOOT 3+V RT TECHNIQUE: Right foot 3 views HISTORY: right foot pain, infection s/p 3rd toe amputation COMPARISONS: FINDINGS: There is been amputation of the third toe at the level of the mid to distal metatarsal. There is joselyn cent soft tissue irregularity which could be postoperative in nature please correlate with operative history. No acute bony destructive changes are observed. No radiopaque foreign bodies are seen. Skele zoë structures are osteopenic. IMPRESSION: Status post amputation of the third toe. Adjacent soft tissue irregularity could be postoperative in nature please correlate with operative history Osteopenia This document is electronically signed by Alton Garcia MD., December 01 2018 05:23:51 PM ET
[2018-12-01] MEDS: PRAVACHOL PO SCH (21:13)
[2018-12-02] MEDS: MAXIPIME/NS 1 GM/100 ML 1 GM/100 ML BAG IV SCH (02:00)
[2018-12-02 05:35] LABS: Hematocrit 28.1 % (30.3-42.9); Hemoglobin 8.8 gm/dl (10.1-14.3); Mean Corpuscular HGB Conc 32 % (30-34); Mean Corpuscular Volume 74 fl (79-97); Platelet Count 283 K/mm3 (140-440); Red Blood Count 3.78 M/mm3 (3.65-5.03)
[2018-12-02 05:59] LABS: Calcium 8.9 mg/dL (8.4-10.2)
--- NOTE | 2018-12-02 07:01 | Progress Note ---
Assessment and Plan 1. ESRD: Continue hemodialysis three times a week, TTS schedule. HD today. 2. SIRS: Right LE cellulitis. S/p recent amputation of right middle toe. 3. Acute metabolic encephalopathy: Improved. 4. Anemia: Epogen with HD. 5. GILBERTO: CPAP. 6. DM type 2. 7. HTN. Subjective Date of service: 12/02/18 Interval history: Patient was seen and examined at the bedside. No new complaint. Objective - Vital Signs Vital signs: Vital Signs - 12hr 12/01/18 12/01/18 12/01/18 19:52 20:44 21:00 Temperature 97.8 F Pulse Rate 72 64 Pulse Rate [ Apical] Respiratory 20 Rate Blood Pressure 113/46 O2 Sat by Pulse 100 97 Oximetry 12/01/18 12/02/18 12/02/18 23:00 00:20 04:49 Temperature 98.0 F 98.4 F Pulse Rate 58 L 71 Pulse Rate [ 64 Apical] Respiratory 18 20 20 Rate Blood Pressure 104/53 112/58 O2 Sat by Pulse 94 96 Oximetry 12/02/18 05:00 Temperature Pulse Rate 69 Pulse Rate [ Apical] Respiratory Rate Blood Pressure O2 Sat by Pulse Oximetry - General Appearance General appearance: well-developed, well-nourished, appears stated age, other (not in distress) EENT: ATNC Neck: supple Respiratory: Present: Clear to Ascultation Cardiology: regular, S1S2, no murmurs Gastrointestinal: normoactive bowel sounds, no tenderness, no distended Integumentary: ulcer (right foot dressing) Neurologic: no focal deficit, no asterixis Musculoskeletal: other (no edema, left arm AVF) Psychiatric: cooperative - Lab 12/02/18 04:41 12/02/18 04:41 Most recent lab results Calcium 8.9 mg/dL (8.4-10.2) 12/02/18 04:41 Phosphorus 4.30 mg/dL (2.5-4.5) 11/30/18 07:05 Magnesium 1.80 mg/dL (1.7-2.3) 11/30/18 07:05 Medications & Allergies - Medications Allergies/Adverse Reactions: Allergies Iodinated Contrast- Oral and IV Dye Allergy (Verified 11/25/18 15:48) Hives, Rash Penicillins Allergy (Verified 11/25/18 15:48) Hives Home Medications: Home Medications Medication Instructions Recorded Confirmed Last Taken Type Ezetimibe [Zetia] 10 mg PO HS 05/11/14 12/02/18 11/25/18 20:00 History Levothyroxine [Synthroid] 50 mcg PO DAILY 05/11/14 11/29/18 11/26/18 05:00 History B Complex 11/Folic/C/Biot/Zinc 1 each PO DAILY 09/06/15 12/02/18 11/25/18 20:00 History [Dialyvite with Zinc Tablet] Pravastatin [Pravachol] 40 mg PO QHS 09/06/15 11/29/18 11/25/18 20:00 History Calcium Acetate [Phoslo] 667 mg PO TID 06/25/17 12/02/18 11/28/18 History Meloxicam [Mobic] 7.5 mg PO DAILY 06/25/17 12/02/18 11/28/18 History Pregabalin [Lyrica] 75 mg PO BID 06/25/17 11/29/18 11/25/18 20:00 History Lispro Insulin [Humalog] 0 unit SQ AC 11/25/18 12/02/18 Unknown History Oxycodone HCl [Roxicodone] 5 mg PO DAILY PRN 11/25/18 12/02/18 11/25/18 10:00 History Pantoprazole Sodium 40 mg PO DAILY 11/25/18 11/29/18 11/26/18 05:00 History amLODIPine [Norvasc] 2.5 mg PO DAILY 11/25/18 12/02/18 11/28/18 History 2.5 levoFLOXacin [Levaquin TAB] 250 mg PO Q48HR 11/25/18 12/02/18 11/28/18 History 250 Doxycycline [Vibramycin CAP] 100 mg PO Q12HR 14 Days #28 capsule 11/26/18 12/02/18 11/28/18 Rx oxyCODONE /ACETAMINOPHEN [Percocet 1 tab PO Q6HR PRN #30 tablet 11/26/18 12/02/18 11/28/18 Rx 5/325] Omeprazole 20 mg PO DAILY 11/29/18 12/02/18 Unknown History levoFLOXacin [Levaquin TAB] 500 mg PO Q48HR 11/29/18 12/02/1811/28/19 History 500 Active Medications: Generic Name Dose Route Start Last Admin Trade Name Freq PRN Reason Stop Dose Admin Acetaminophen 650 mg 11/29/18 11:39 Tylenol PO Q4H PRN Pain MILD(1-3)/Fever >100.5/DALE Amlodipine Besylate 2.5 mg 11/29/18 12:00 12/01/18 09:37 Norvasc PO 2.5 mg DAILY JUAQUIN Administration Calcium Acetate 667 mg 11/29/18 14:00 12/01/18 20:50 Phoslo PO 667 mg TID JUAQUIN Administration Dextrose 50 ml 12/01/18 15:06 D50w (25gm) Syringe IV PRN PRN Hypoglycemia Epoetin [place] 10,000 unit 11/29/18 12:25 11/29/18 17:30 Procrit IV 10,000 unit ANNI PRN Administration hemodialysis Heparin Sodium (Porcine) 5,000 unit 11/29/18 12:25 Heparin IV ANNI PRN hemodialysis Heparin Sodium (Porcine) 2,000 unit 11/29/18 12:25 Heparin 10,000 Units/10 Ml IV ANNI PRN hemodialysis Hydromorphone HCl 0.5 mg 11/29/18 11:39 12/01/18 20:18 Dilaudid IV 0.5 mg Q3H PRN Administration Pain , Severe (7-10) Sodium Chloride 100 mls @ 999 mls/hr 11/29/18 12:25 Nacl 0.9% IV ANNI PRN Hypotension Cefepime HCl 1 gm in 100 mls @ 200 mls/hr 11/30/18 02:00 12/02/18 02:00 Maxipime/Ns 1 Gm/100 Ml IV 200 mls/hr Q24H JUAQUIN Administration Protocol Insulin Glargine 10 units 11/29/18 11:52 Lantus SUB-Q QHS PRN HYPERGLYCEMIC Insulin Human Lispro 0 unit 12/01/18 16:30 12/01/18 22:00 Humalog SUB-Q 8 unit ACHS JUAQUIN Administration Protocol Levothyroxine Sodium 50 mcg 11/29/18 12:00 12/01/18 09:33 Synthroid PO 50 mcg DAILY JUAQUIN Administration Metoclopramide HCl 10 mg 11/29/18 11:39 12/01/18 09:35 Reglan IV 10 mg Q6H PRN Administration Nausea And Vomiting Multivit/Ca Carb/B Cmplx/FA/Prenat 1 cap 11/29/18 14:00 12/01/18 09:33 Renal Caps PO 1 cap QDAY JUAQUIN Administration Ondansetron HCl 4 mg 11/29/18 11:39 Zofran IV Q8H PRN Nausea And Vomiting Oxycodone/Acetaminophen 1 tab 11/29/18 11:34 11/30/18 14:40 Percocet 5/325 PO 1 tab Q6HR PRN Administration Pain Pantoprazole Sodium 40 mg 11/29/18 12:00 12/01/18 09:33 Protonix PO 40 mg DAILY JUAQUIN Administration Polyethylene Glycol 17 gm 12/01/18 15:00 12/01/18 16:08 Miralax 3350 PO 17 gm QDAY JUAQUIN Administration Pravastatin Sodium 40 mg 11/29/18 22:00 12/01/18 21:13 Pravachol PO 40 mg QHS JUAQUIN Administration Pregabalin 75 mg 11/29/18 12:00 12/01/18 21:13 Lyrica PO 75 mg BID JUAQUIN Administration Sodium Chloride 10 ml 11/29/18 12:00 12/01/18 22:00 Sodium Chloride Flush Syringe 10 Ml IV 10 ml BID JUAQUIN Administration Sodium Chloride 10 ml 11/29/18 11:39 Sodium Chloride Flush Syringe 10 Ml IV PRN PRN LINE FLUSH
[2018-12-02] MEDS: PHOSLO PO SCH ×3 (08:53→22:36)
[2018-12-02] MEDS: HumaLOG SUB-Q SCH ×2 (08:57→13:01)
[2018-12-02] MEDS: MIRALAX 3350 PO SCH (10:01)
--- NOTE | 2018-12-02 11:11 | Consultation ---
History of Present Illness - Reason for Consult Consult date: 12/02/18 Right 3rd toe amputation infection Requesting physician: EDEL INTERIANO - History of Present Illness This patient is a 78 year old women with a past medical history of blindness, ESRD on HD, Hypertension, CVA, CHF, IDDM, COPD, GILBERTO on bipap, hypthyroidism, s/p amputation of gangrnous, infected right 3rd toe on 11/26/[address] Munoz, Findings post-op was consistent with osteomyelitis of proximal phalanx. Surgical cultures grew Beta Hemolytic strep group B. She presented to the ED on 11/29/18 with Altered Mental Status. On admission WBC 13.3, Creatinine 8.2, Temperature 99.1, HR 73, BP 130/58, Blood cultures were drawn and show no growth to date. Chest xray shows no consolidation. Head CT shows no acute intracranial abnormality. Chronic microvascular ischemic disease in the subcortical and periventricular white matter. Review of Systems: General: no fever, chills, nightsweats, unintentional weight change, or change in appetite Cutaneous: no rash, pruritus Head: no headaches or injury Eyes: no changes in vision, eye pain, double vision Ears: no ear pain, ear discharge, ringing or hearing loss Nose: no nose bleeding, stuffiness Mouth & throat: no bleeding gums, no horseness, no dental problems, or swollen glands Neck: no pain, node enlargement/lumps, tyroid enlargement or tenderness Respiratory: no cough, wheezing, sputum, hemoptysis, pleuritic chest pain Cardiovascular: no chest pain, leg edema, cyanosis, ERNST, orthopnea Musculoskeletal: no decreased joint motion, bone or joint pain, joint swelling, muscle aches Gastrointestinal: s/p right 3rd toe amputation, serosanguninous drainage at surgical site. Genitourinary/Reproductive: no frequent urination, no dysuria, hematuria, inc ontinence Neurogical: no seizures, no headaches, no weakness, no paresthesias, no loss of speech or vision; no memory loss, no vertigo, no tremors, no numbness Psychiatric: stable mood; no excessive anxiety, sadness or moodiness Past History Past Medical History: COPD, ESRD, hypertension, stroke Social history: other (Unobtainable) Family history: other (Unobtainable) Medications and Allergies Allergies Allergy/AdvReac Type Severity Reaction Status Date / Time Iodinated Contrast- Oral and Allergy Hives, Rash Verified 11/25/18 15:48 IV Dye Penicillins Allergy Hives Verified 11/25/18 15:48 Home Medications Medication Instructions Recorded Confirmed Last Taken Type Ezetimibe [Zetia] 10 mg PO HS 05/11/14 12/02/18 11/25/18 20:00 History Levothyroxine [Synthroid] 50 mcg PO DAILY 05/11/14 11/29/18 11/26/18 05:00 History B Complex 11/Folic/C/Biot/Zinc 1 each PO DAILY 09/06/15 12/02/18 11/25/18 20:00 History [Dialyvite with Zinc Tablet] Pravastatin [Pravachol] 40 mg PO QHS 09/06/15 11/29/18 11/25/18 20:00 History Calcium Acetate [Phoslo] 667 mg PO TID 06/25/17 12/02/18 11/28/18 History Meloxicam [Mobic] 7.5 mg PO DAILY 06/25/17 12/02/18 11/28/18 History Pregabalin [Lyrica] 75 mg PO BID 06/25/17 11/29/18 11/25/18 20:00 History Lispro Insulin [Humalog] 0 unit SQ AC 11/25/18 12/02/18 Unknown History Oxycodone HCl [Roxicodone] 5 mg PO DAILY PRN 11/25/18 12/02/18 11/25/18 10:00 History Pantoprazole Sodium 40 mg PO DAILY 11/25/18 11/29/18 11/26/18 05:00 History amLODIPine [Norvasc] 2.5 mg PO DAILY 11/25/18 12/02/18 11/28/18 History 2.5 levoFLOXacin [Levaquin TAB] 250 mg PO Q48HR 11/25/18 12/02/18 11/28/18 History 250 Doxycycline [Vibramycin CAP] 100 mg PO Q12HR 14 Days #28 capsule 11/26/18 12/02/18 11/28/18 Rx oxyCODONE /ACETAMINOPHEN [Percocet 1 tab PO Q6HR PRN #30 tablet 11/26/18 12/02/18 11/28/18 Rx 5/325] Omeprazole 20 mg PO DAILY 11/29/18 12/02/18 Unknown History levoFLOXacin [Levaquin TAB] 500 mg PO Q48HR 11/29/18 12/02/18 11/28/18 History 500 Active Meds: Active Medications Acetaminophen (Tylenol) 650 mg PO Q4H PRN PRN Reason: Pain MILD(1-3)/Fever >100.5/DALE Amlodipine Besylate (Norvasc) 2.5 mg PO DAILY [facility] Last Admin: 12/01/18 09:37 Dose: 2.5 mg Documented by: Calcium Acetate (Phoslo) 667 mg PO TID [facility] Last Admin: 12/02/18 08:53 Dose: 667 mg Documented by: Dextrose (D50w (25gm) Syringe) 50 ml IV PRN PRN PRN Reason: Hypoglycemia Epoetin [place] (Procrit) 10,000 unit IV ANNI PRN PRN Reason: hemodialysis Last Admin: 11/29/18 17:30 Dose: 10,000 unit Documented by: Heparin Sodium (Porcine) (Heparin) 5,000 unit IV ANNI PRN PRN Reason: hemodialysis Heparin Sodium (Porcine) (Heparin 10,000 Units/10 Ml) 2,000 unit IV ANNI PRN PRN Reason: hemodialysis Hydromorphone HCl (Dilaudid) 0.5 mg IV Q3H PRN PRN Reason: Pain , Severe (7-10) Last Admin: 12/01/18 20:18 Dose: 0.5 mg Documented by: Sodium Chloride (Nacl 0.9%) 100 mls @ 999 mls/hr IV ANNI PRN PRN Reason: Hypotension Cefepime HCl (Maxipime/Ns 1 Gm/100 Ml) 1 gm in 100 mls @ 200 mls/hr IV Q24H [facility]; Protocol Last Admin: 12/02/18 02:00 Dose: 200 mls/hr Documented by: Insulin Glargine (Lantus) 10 units SUB-Q QHS PRN PRN Reason: HYPERGLYCEMIC Insulin Human Lispro (Humalog) 0 unit SUB-Q ACHS [facility]; Protocol Last Admin: 12/02/18 08:57 Dose: 3 unit Documented by: Levothyroxine Sodium (Synthroid) 50 mcg PO DAILY [facility] Last Admin: 12/01/18 09:33 Dose: 50 mcg Documented by: Metoclopramide HCl (Reglan) 10 mg IV Q6H PRN PRN Reason: Nausea And Vomiting Last Admin: 12/01/18 09:35 Dose: 10 mg Documented by: Multivit/Ca Carb/B Cmplx/FA/Prenat (Renal Caps) 1 cap PO QDAY [facility] Last Admin: 12/01/18 09:33 Dose: 1 cap Documented by: Ondansetron HCl (Zofran) 4 mg IV Q8H PRN PRN Reason: Nausea And Vomiting Oxycodone/Acetaminophen (Percocet 5/325) 1 tab PO Q6HR PRN PRN Reason: Pain Last Admin: 11/30/18 14:40 Dose: 1 tab Documented by: Pantoprazole Sodium (Protonix) 40 mg PO DAILY [facility] Last Admin: 12/01/18 09:33 Dose: 40 mg Documented by: Polyethylene Glycol (Miralax 3350) 17 gm PO QDAY [facility] Last Admin: 12/01/18 16:08 Dose: 17 gm Documented by: Pravastatin Sodium (Pravachol) 40 mg PO QHS [facility] Last Admin: 12/01/18 21:13 Dose: 40 mg Documented by: Pregabalin (Lyrica) 75 mg PO BID [facility] Last Admin: 12/01/18 21:13 Dose: 75 mg Documented by: Sodium Chloride (Sodium Chloride Flush Syringe 10 Ml) 10 ml IV BID [facility] Last Admin: 12/01/18 22:00 Dose: 10 ml Documented by: Sodium Chloride (Sodium Chloride Flush Syringe 10 Ml) 10 ml IV PRN PRN PRN Reason: LINE FLUSH Physical Examination - Physical Exam Narrative exam: Constitutional: Alert, cooperative. No acute distress Head, Ears, Nose: Normocephalic, atraumatic. External ears, nose normal Eyes: Conjunctivae/corneas clear. No icterus. No ptosis. Neck: Supple, no meningeal signs Oral: dentition poor, no thrush Cardiovascular: S1, S2 normal. Respiratory: Good air entry, clear to auscultation bilaterally GI: Soft, non-tender; bowel sounds normal. No peritoneal signs Musculoskeletal:wound care nurse noted 3rd toe amputation site with moderate amount of serosanguineous drainage, measuring 4x2x4, Bone exposed with necrosis, edema and tenderness.. +dressing Skin: No rash or abscess. Hem/Lymphatic: No palpable cervical or supraclavicular nodes. No lymphangitis Psych: Mood ok. Affect normal Neurological: Awake, alert, oriented. - Constitutional Vitals: Vital Signs Temp Pulse Resp BP Pulse Ox 98.4 F 69 20 112/58 96 12/02/18 04:49 12/02/18 05:00 12/02/18 04:49 12/02/18 04:49 12/02/18 04:49 Temperature -Last 24 Hours Temperature 98.4 F Temperature 98.0 F Temperature 97.8 F Results - Labs CBC & Chem 7: 12/02/18 04:41 12/02/18 04:41 Labs: Abnormal lab results 12/01/18 12/01/18 12/01/18 Range/Units 12:44 16:17 17:58 WBC (4.5-11.0) K/mm3 Hgb (10.1-14.3) gm/dl Hct (30.3-42.9) % MCV (79-97) fl MCH (28-32) pg RDW (13.2-15.2) % Sodium (137-145) mmol/L Chloride (98-107) mmol/L BUN (7-17) mg/dL Creatinine (0.7-1.2) mg/dL Glucose (65-100) mg/dL POC Glucose 318 H 415 H 424 H (70-105) 12/01/18 12/01/18 12/02/18 Range/Units 19:19 21:51 00:23 WBC (4.5-11.0) K/mm3 Hgb (10.1-14.3) gm/dl Hct (30.3-42.9) % MCV (79-97) fl MCH (28-32) pg RDW (13.2-15.2) % Sodium (137-145) mmol/L Chloride (98-107) mmol/L BUN (7-17) mg/dL Creatinine (0.7-1.2) mg/dL Glucose 486 H (65-100) mg/dL POC Glucose 316 H 231 H (70-105) 12/02/18 12/02/18 12/02/18 Range/Units 04:41 04:41 08:08 WBC 11.6 H (4.5-11.0) K/mm3 Hgb 8.8 L (10.1-14.3) gm/dl Hct 28.1 L (30.3-42.9) % MCV 74 L (79-97) fl MCH 23 L (28-32) pg RDW 17.0 H (13.2-15.2) % Sodium 134 L (137-145) mmol/L Chloride 92.4 L (98-107) mmol/L BUN 56 H (7-17) mg/dL Creatinine 8.2 H (0.7-1.2) mg/dL Glucose 168 H (65-100) mg/dL POC Glucose 182 H (70-105) - Imaging and Cardiology Chest x-ray: report reviewed, image reviewed (no consolidation. Low lung volumes with streaky atelectasis at the bilateral lung bases) CT Scan - head: report reviewed (no acute intracranial abnormality. Chronic microvascular ischemic disease in the subcortical and periventricular white matter.) Assessment and Plan Cultures: 11/29/2018 Blood: no growth to date A/P: 78-year-old female a past medical history of blindness, ESRD on HD, Hypertension, CVA, CHF, IDDM, COPD, GILBERTO on bipap, hypthyroidism, s/p amputation of gangrenous, infected right 3rd toe amputation of right third toe on 11/26/[address] Munoz, Findings post-op were consistent with osteomyelitis of proximal phalanx. Surgical cultures grew Beta Hemolytic strep group B. Patient was sent home on Doxycycline and Levaquin PO. Now admitted with: 1. Leukocytosis on admission: unclear etiology, likely infected right 3rd toe amputation site. S/p amputation 2 weeks ago.. No fever. Chest xray show no consolidation. 2 . Osteomylitis of Right Proximal Phalanx: s/p amputation on 11/26/18 , surgical cultures grew Beta Hemolytic Strep group B.. On admission, wound care nurse noted 3rd toe amputation site with moderate amount of serosanguineous drainage, measuring 4x2x4, Bone exposed with necrosis, edema and tenderness. Foot xray on 12/01/18 shows adjacent soft tissue irregularity which could be postoperative in nature.. No acute bony destructive changes are observed. . Skeletal structures are osteopenic. Currently being treated with Cefepime and Vancomycin. 3. ESRD on HD: left arm AVF. Antibiotics renally dosed. Nephrology following. 4. Type 2 Diabetes: uncontrolled 5. Acute Encephalopathy: metabolic? Improved Plan: -Order wound culture -f/u blood culture -f/u Surgery consult -Continue Vancomycin and Cefepime for now -Start Flagyl 500mg IV every 8 hours -Order MRI of Right foot w/o contrast -Order CRP, ESR, CBC for tomorrow [facility] M: [phone] O:[phone]
[2018-12-02] MEDS: PERCOCET 5/325 PO PRN (14:14)
--- NOTE | 2018-12-02 16:40 | Progress Note ---
Assessment and Plan /Acute metabolic encephalopathy, appears back to baseline per Daughter. Neurology is following. /Leukocytosis, does not meet criteria for sepsis, likely from 3rd toe amputation site infection: ?Osteomyelitis. The necrosis around the site may need debridement, consulted Ortho because of the bone exposure. consulted ID for antibiotic management. Planned for MRI of the right foot /GILBERTO: consulted Respiratory, cont on bipap at bedtime /Atelectasis of lung: nebs and incentive spirometry /ESRD on HD: Nephrology following /IDDM: continue insulin, added SSI /Hypothyroidism: continue synthroid DVT ppx Brief History This patient is a 78 year old women with a past medical history of blindness, ESRD on HD, Hypertension, CVA, CHF, IDDM, COPD, GILBERTO on bipap, hypthyroidism, s/p amputation of gangrnous, infected right 3rd toe on 11/26/[address] Munoz, Findings post-op was consistent with osteomyelitis of proximal phalanx. Surgical cultures grew Beta Hemolytic strep group B. She presented to the ED on 11/29/18 with Altered Mental Status. On admission WBC 13.3, Creatinine 8.2, Temperature 99.1, HR 73, BP 130/58, Blood cultures were drawn and show no growth to date. Chest xray shows no consolidation. Head CT shows no acute intracranial abnormality. Chronic microvascular ischemic disease in the subcortical and periventricular white matter. ID consulted for abx recommendation, no further debridement planned by Ortho/GS Hospitalist Physical GENERAL: elderly AAF lying on bed appeared to be in no discomfort. HEENT: Normocephalic. Atraumatic. No conjunctival congestion or icterus. Patient has moist mucous membranes. NECK: Supple. Trachea midline. CHEST/LUNGS: Clear to auscultated bilaterally, breathing nonlabored. No wheezes crackles or rhonchi. HEART/CARDIOVASCULAR: Regular in rate and rhythm. S1 and S2 positive. ABDOMEN: Abdomen is soft, nontender. Patient has normal bowel sounds. SKIN: There is no rash. Warm and dry. NEURO: No focal motor deficit. Follows command. MUSCULOSKELETAL: with right foot dressing. FOOT IS VERY PAINFUL TO TOUCH. EDEMATOUS. NO ODOR. EXTRIMITY: No edema, no cyanosis or clubbing. PSYCH: Cooperative. Subjective Date of service: 12/02/18 Interval history: Patient seen and examined. Medical records and medication list reviewed. No acute event overnight noted by the RN. Patient denies any chest pain or difficulty breathing. Patient is tolerating diet. Complaints of right foot pain Discussed plan of care at bedside with patient. Objective - Constitutional Vitals: Vital Signs - 12hr 12/02/18 12/02/18 12/02/18 04:49 05:00 11:00 Temperature 98.4 F Pulse Rate 71 69 Respiratory 20 18 Rate Blood Pressure 112/58 O2 Sat by Pulse 96 96 Oximetry 12/02/18 12/02/18 12/02/18 11:20 11:41 14:14 Temperature Pulse Rate 71 71 Respiratory 20 Rate Blood Pressure 110/62 O2 Sat by Pulse 98 Oximetry - Labs CBC & Chem 7: 12/03/18 04:48 12/03/18 04:48 Labs: Abnormal lab results 12/01/18 12/01/18 12/01/18 Range/Units 12:44 16:17 17:58 WBC (4.5-11.0) K/mm3 Hgb (10.1-14.3) gm/dl Hct (30.3-42.9) % MCV (79-97) fl MCH (28-32) pg RDW (13.2-15.2) % Sodium (137-145) mmol/L Chloride (98-107) mmol/L BUN (7-17) mg/dL Creatinine (0.7-1.2) mg/dL Glucose (65-100) mg/dL POC Glucose 318 H 415 H 424 H (70-105) 12/01/18 12/01/18 12/02/18 Range/Units 19:19 21:51 00:23 WBC (4.5-11.0) K/mm3 Hgb (10.1-14.3) gm/dl Hct (30.3-42.9) % MCV (79-97) fl MCH (28-32) pg RDW (13.2-15.2) % Sodium (137-145) mmol/L Chloride (98-107) mmol/L BUN (7-17) mg/dL Creatinine (0.7-1.2) mg/dL Glucose 486 H (65-100) mg/dL POC Glucose 316 H 231 H (70-105) 12/02/18 12/02/18 12/02/18 Range/Units 04:41 04:41 08:08 WBC 11.6 H (4.5-11.0) K/mm3 Hgb 8.8 L (10.1-14.3) gm/dl Hct 28.1 L (30.3-42.9) % MCV 74 L (79-97) fl MCH 23 L (28-32) pg RDW 17.0 H (13.2-15.2) % Sodium 134 L (137-145) mmol/L Chloride 92.4 L (98-107) mmol/L BUN 56 H (7-17) mg/dL Creatinine 8.2 H (0.7-1.2) mg/dL Glucose 168 H (65-100) mg/dL POC Glucose 182 H (70-105) 12/02/18 Range/Units 11:43 WBC (4.5-11.0) K/mm3 Hgb (10.1-14.3) gm/dl Hct (30.3-42.9) % MCV (79-97) fl MCH (28-32) pg RDW (13.2-15.2) % Sodium (137-145) mmol/L Chloride (98-107) mmol/L BUN (7-17) mg/dL Creatinine (0.7-1.2) mg/dL Glucose (65-100) mg/dL POC Glucose 163 H (70-105)
[2018-12-02] MEDS ORDERED: NACL 0.9 (PRIMING MACHINE ONLY DIALYSIS) MC ONE (18:32)
[2018-12-02] MEDS: PRAVACHOL PO SCH (22:36)
[2018-12-02] MEDS: FLAGYL 500 MG/100 ML 500 MG/100 ML BAG IV SCH (22:36)
[2018-12-02] MEDS: SODIUM CHLORIDE FLUSH SYRINGE 10 ML IV SCH (22:37)
[2018-12-02] MEDS: LYRICA PO SCH (22:37)
[2018-12-02] MEDS: NORVASC PO SCH (22:40)
[2018-12-03 01:27] LABS: Basophils % (Auto) 0.5 % (0.0-1.8); Eosinophils # (Auto) 0.2 K/mm3 (0.0-0.4); Eosinophils % (Auto) 2.5 % (0.0-4.3); Hematocrit 29.5 % (30.3-42.9); Hemoglobin 9.2 gm/dl (10.1-14.3); Lymphocytes # (Auto) 0.8 K/mm3 (1.2-5.4); Lymphocytes % (Auto) 8.2 % (13.4-35.0); Mean Corpuscular HGB Conc 31 % (30-34); Mean Corpuscular Volume 75 fl (79-97); Monocytes # (Auto) 0.8 K/mm3 (0.0-0.8); Monocytes % (Auto) 8.5 % (0.0-7.3); Platelet Count 234 K/mm3 (140-440); Red Blood Count 3.92 M/mm3 (3.65-5.03)
[2018-12-03 02:40] LABS: Erythrocyte Sedimentation Rate 52 mm/Hr (0-20)
[2018-12-03] MEDS: HumaLOG SUB-Q SCH ×5 (03:00→21:16)
[2018-12-03] MEDS: MAXIPIME/NS 1 GM/100 ML 1 GM/100 ML BAG IV SCH (03:24)
[2018-12-03] MEDS: PERCOCET 5/325 PO PRN (03:33)
[2018-12-03 05:49] LABS: Hematocrit 29.6 % (30.3-42.9); Hemoglobin 9.2 gm/dl (10.1-14.3); Mean Corpuscular HGB Conc 31 % (30-34); Mean Corpuscular Volume 76 fl (79-97); Platelet Count 248 K/mm3 (140-440); Red Blood Count 3.91 M/mm3 (3.65-5.03); Red Cell Distribution Width 17.1 % (13.2-15.2)
[2018-12-03 06:18] LABS: Calcium 9.1 mg/dL (8.4-10.2)
[2018-12-03] MEDS: FLAGYL 500 MG/100 ML 500 MG/100 ML BAG IV SCH ×3 (06:31→23:32)
--- NOTE | 2018-12-03 07:00 | Progress Note ---
Assessment and Plan 1. ESRD: Continue hemodialysis three times a week, TTS schedule. HD tomorrow. 2. SIRS: Right LE cellulitis. S/p recent amputation of right middle toe. 3. Acute metabolic encephalopathy: Improved. 4. Anemia: Epogen with HD. 5. GILBERTO: CPAP. 6. DM type 2. 7. HTN. Subjective Date of service: 12/03/18 Interval history: Patient was seen and examined at the bedside. No new complaint. Objective - Vital Signs Vital signs: Vital Signs - 12hr 12/02/18 12/02/18 12/02/18 19:15 19:30 19:40 Temperature Pulse Rate 64 66 71 Respiratory Rate Blood Pressure 144/65 121/66 131/79 O2 Sat by Pulse Oximetry 12/02/18 12/02/18 12/02/18 20:05 20:20 22:00 Temperature 98.0 F Pulse Rate 61 61 Respiratory 18 Rate Blood Pressure 130/61 O2 Sat by Pulse 97 Oximetry 12/03/18 12/03/18 00:26 06:09 Temperature 98.2 F Pulse Rate 63 63 Respiratory 20 Rate Blood Pressure 128/61 O2 Sat by Pulse 98 Oximetry - General Appearance General appearance: well-developed, appears stated age, other (not in distress) EENT: ATNC Neck: supple Respiratory: Present: Clear to Ascultation Cardiology: regular, S1S2, no murmurs Gastrointestinal: normoactive bowel sounds, no tenderness, no distended Integumentary: ulcer (right foot dressing) Neurologic: no asterixis, other (diminished vision) Musculoskeletal: other (no edema, left arm AVF) Psychiatric: cooperative - Lab 12/03/18 04:48 12/03/18 04:48 Most recent lab results Calcium 9.1 mg/dL (8.4-10.2) 12/03/18 04:48 Phosphorus 4.30 mg/dL (2.5-4.5) 11/30/18 07:05 Magnesium 1.80 mg/dL (1.7-2.3) 11/30/18 07:05 Medications & Allergies - Medications Allergies/Adverse Reactions: Allergies Iodinated Contrast- Oral and IV Dye Allergy (Verified 11/25/18 15:48) Hives, Rash Penicillins Allergy (Verified 11/25/18 15:48) Hives Home Medications: Home Medications Medication Instructions Recorded Confirmed Last Taken Type Ezetimibe [Zetia] 10 mg PO HS 05/11/14 12/02/18 11/25/18 20:00 History Levothyroxine [Synthroid] 50 mcg PO DAILY 05/11/14 11/29/18 11/26/18 05:00 Histo ry B Complex 11/Folic/C/Biot/Zinc 1 each PO DAILY 09/06/15 12/02/18 11/25/18 20:00 History [Dialyvite with Zinc Tablet] Pravastatin [Pravachol] 40 mg PO QHS 09/06/15 11/29/18 11/25/18 20:00 History Calcium Acetate [Phoslo] 667 mg PO TID 06/25/17 12/02/18 11/28/18 History Meloxicam [Mobic] 7.5 mg PO DAILY 06/25/17 12/02/18 11/28/18 History Pregabalin [Lyrica] 75 mg PO BID 06/25/17 11/29/18 11/25/18 20:00 History Lispro Insulin [Humalog] 0 unit SQ AC 11/25/18 12/02/18 Unknown History Oxycodone HCl [Roxicodone] 5 mg PO DAILY PRN 11/25/18 12/02/18 11/25/18 10:00 History Pantoprazole Sodium 40 mg PO DAILY 11/25/18 11/29/18 11/26/18 05:00 History amLODIPine [Norvasc] 2.5 mg PO DAILY 11/25/18 12/02/18 11/28/18 History 2.5 levoFLOXacin [Levaquin TAB] 250 mg PO Q48HR 11/25/18 12/02/18 11/28/18 History 250 Doxycycline [Vibramycin CAP] 100 mg PO Q12HR 14 Days #28 capsule 11/26/18 12/02/18 11/28/18 Rx oxyCODONE /ACETAMINOPHEN [Percocet 1 tab PO Q6HR PRN #30 tablet 11/26/18 12/02/18 11/28/18 Rx 5/325] Omeprazole 20 mg PO DAILY 11/29/18 12/02/18 Unknown History levoFLOXacin [Levaquin TAB] 500 mg PO Q48HR 11/29/18 12/02/18 11/28/18 History 500 Active Medications: Generic Name Dose Route Start Last Admin Trade Name Freq PRN Reason Stop Dose Admin Acetaminophen 650 mg 11/29/18 11:39 Tylenol PO Q4H PRN Pain MILD(1-3)/Fever >100.5/DALE Amlodipine Besylate 2.5 mg 11/29/18 12:00 12/02/18 22:40 Norvasc PO 2.5 mg DAILY JUAQUIN Administration Calcium Acetate 667 mg 11/29/18 14:00 12/02/18 22:36 Phoslo PO 667 mg TID JUAQUIN Administration Dextrose 50 ml 12/01/18 15:06 D50w (25gm) Syringe IV PRN PRN Hypoglycemia Docusate Sodium 100 mg 12/03/18 10:00 Colace PO BID JUAQUIN Epoetin Quincy 10,000 unit 11/29/18 12:25 11/29/18 17:30 Procrit IV 10,000 unit ANNI PRN Administration hemodialysis Heparin Sodium (Porcine) 5,000 unit 11/29/18 12:25 Heparin IV ANNI PRN hemodialysis Heparin Sodium (Porcine) 2,000 unit 11/29/18 12:25 Heparin 10,000 Units/10 Ml IV ANNI PRN hemodialysis Hydromorphone HCl 0.5 mg 11/29/18 11:39 12/01/18 20:18 Dilaudid IV 0.5 mg Q3H PRN Administration Pain , Severe (7-10) Sodium Chloride 100 mls @ 999 mls/hr 11/29/18 12:25 Nacl 0.9% IV ANNI PRN Hypotension Cefepime HCl 1 gm in 100 mls @ 200 mls/hr 11/30/18 02:00 12/03/18 03:24 Maxipime/Ns 1 Gm/100 Ml IV 200 mls/hr Q24H JUAQUIN Administration Protocol Metronidazole 500 mg in 100 mls @ 100 mls/hr 12/02/18 22:00 12/03/18 06:31 Flagyl 500 Mg/100 Ml IV 100 mls/hr Q8HR JUAQUIN Administration Protocol Insulin Glargine 10 units 11/29/18 11:52 Lantus SUB-Q QHS PRN HYPERGLYCEMIC Insulin Human Lispro 0 unit 12/01/18 16:30 12/03/18 03:00 Humalog SUB-Q 4 unit ACHS JUAQUIN Administration Protocol Levothyroxine Sodium 50 mcg 11/29/18 12:00 12/01/18 09:33 Synthroid PO 50 mcg DAILY JUAQUIN Administration Metoclopramide HCl 10 mg 11/29/18 11:39 12/01/18 09:35 Reglan IV 10 mg Q6H PRN Administration Nausea And Vomiting Multivit/Ca Carb/B Cmplx/FA/Prenat 1 cap 11/29/18 14:00 12/01/18 09:33 Renal Caps PO 1 cap QDAY JUAQUIN Administration Ondansetron HCl 4 mg 11/29/18 11:39 Zofran IV Q8H PRN Nausea And Vomiting Oxycodone/Acetaminophen 1 tab 11/29/18 11:34 12/03/18 03:33 Percocet 5/325 PO 1 tab Q6HR PRN Administration Pain Pantoprazole Sodium 40 mg 11/29/18 12:00 12/01/18 09:33 Protonix PO 40 mg DAILY JUAQUIN Administration Polyethylene Glycol 17 gm 12/01/18 15:00 12/02/18 10:01 Miralax 3350 PO 17 gm QDAY JUAQUIN Administration Pravastatin Sodium 40 mg 11/29/18 22:00 12/02/18 22:36 Pravachol PO 40 mg QHS JUAQUIN Administration Pregabalin 75 mg 11/29/18 12:00 12/02/18 22:37 Lyrica PO 75 mg BID JUAQUIN Administration Sodium Chloride 10 ml 11/29/18 12:00 12/02/18 22:37 Sodium Chloride Flush Syringe 10 Ml IV 10 ml BID JUAQUIN Administration Sodium Chloride 10 ml 11/29/18 11:39 Sodium Chloride Flush Syringe 10 Ml IV PRN PRN LINE FLUSH
[2018-12-03] MEDS: LYRICA PO SCH ×3 (09:31→21:28)
[2018-12-03] MEDS: PHOSLO PO SCH ×3 (09:31→21:28)
[2018-12-03] MEDS: COLACE PO SCH ×2 (09:31→21:28)
[2018-12-03] MEDS: Renal Caps PO SCH ×2 (09:31→21:11)
[2018-12-03] MEDS: PROTONIX PO SCH ×2 (09:32→21:11)
[2018-12-03] MEDS: NORVASC PO SCH (09:32)
[2018-12-03] MEDS: MIRALAX 3350 PO SCH (09:33)
[2018-12-03] MEDS: SYNTHROID PO SCH ×2 (09:33→21:11)
[2018-12-03] MEDS: SODIUM CHLORIDE FLUSH SYRINGE 10 ML IV SCH ×3 (09:34→23:32)
--- NOTE | 2018-12-03 09:48 | Progress Note ---
Assessment and Plan Cultures: 11/29/2018 Blood: no growth to date A/P: 78-year-old female a past medical history of blindness, ESRD on HD, Hypertension, CVA, CHF, IDDM, COPD, GILBERTO on bipap, hypthyroidism, s/p amputation of gangrenous, infected right 3rd toe amputation of right third toe on 11/26/[address] Munoz, Findings post-op were consistent with osteomyelitis of proximal phalanx. Surgical cultures grew Beta Hemolytic strep group B. Patient was sent home on Doxycycline and Levaquin PO. Now admitted with: 1. Leukocytosis on admission: Resolved. unclear etiology, likely infected right 3rd toe amputation site. S/p amputation 2 weeks ago.. No fever. Chest xray show no consolidation. CRP 6.4, ESR 52. 2 . Osteomylitis of Right Proximal Phalanx: s/p amputation on 11/26/18 , surgical cultures grew Beta Hemolytic Strep group B.. On admission, wound care nurse noted 3rd toe amputation site with moderate amount of serosanguineous drainage, measuring 4x2x4, Bone exposed with necrosis, edema and tenderness. Foot xray on 12/01/18 shows adjacent soft tissue irregularity which could be postoperative in nature.. No acute bony destructive changes are observed. . Skeletal structures are osteopenic. Currently being treated with Cefepime and Vancomycin. 3. ESRD on HD: left arm AVF. Antibiotics renally dosed. Nephrology following. 4. Type 2 Diabetes: uncontrolled 5. Acute Encephalopathy: metabolic? Improved Plan: - f/u wound culture -f/u blood culture -Discontinue Vancomycin Continue Cefepime -Continue Flagyl 500mg IV every 8 hours - f/u MRI of right foot - report pending [facility] M: [id number] O:[phone] Subjective Date of service: 12/03/18 Interval history: Patient seen and examined. Sitting up in bed eating. No acute distress observed. Nurses notes, labs and reports reviewed, discussed with patient and daughter. Objective - Exam Narrative Exam: Constitutional: Alert, cooperative. No acute distress Head, Ears, Nose: Normocephalic, atraumatic. External ears, nose normal Eyes: Conjunctivae/corneas clear. No icterus. No ptosis. Neck: Supple, no meningeal signs Oral: dentition poor, no thrush Cardiovascular: S1, S2 normal. Respiratory: Good air entry, clear to auscultation bilaterally GI: Soft, non-tender; bowel sounds normal. No peritoneal signs Musculoskeletal:wound care nurse noted 3rd toe amputation site with moderate amount of serosanguineous drainage, measuring 4x2x4, Bone exposed with necrosis, edema and tenderness.. +dressing Skin: No rash or abscess. Hem/Lymphatic: No palpable cervical or supraclavicular nodes. No lymphangitis Psych: Mood ok. Affect normal Neurological: Awake, alert, oriented. - Constitutional Vitals: Vital Signs Temp Pulse Resp BP Pulse Ox 98.2 F 63 20 128/61 98 12/03/18 00:26 12/03/18 06:09 12/03/18 00:26 12/03/18 00:26 12/03/18 08:51 Temperature -Last 24 Hours Temperature 98.2 F Temperature 98.0 F Temperature 98.4 F - Labs CBC & Chem 7: 12/03/18 04:48 12/03/18 04:48 Labs: Abnormal lab results 12/02/18 12/03/18 12/03/18 Range/Units 11:43 00:33 00:41 Hgb 9.2 L (10.1-14.3) gm/dl Hct 29.5 L (30.3-42.9) % MCV 75 L (79-97) fl MCH 23 L (28-32) pg RDW 17.0 H (13.2-15.2) % Lymph % (Auto) 8.2 L (13.4-35.0) % Dunn % (Auto) 8.5 H (0.0-7.3) % Lymph # 0.8 L (1.2-5.4) K/mm3 Seg Neutrophils % 80.3 H (40.0-70.0) % Sodium (137-145) mmol/L Chloride (98-107) mmol/L BUN (7-17) mg/dL Creatinine (0.7-1.2) mg/dL Glucose (65-100) mg/dL POC Glucose 163 H 248 H (70-105) C-Reactive Protein (0.00-1.30) mg/dL 12/03/18 12/03/18 12/03/18 Range/Units 00:41 04:48 04:48 Hgb 9.2 L (10.1-14.3) gm/dl Hct 29.6 L (30.3-42.9) % MCV 76 L (79-97) fl MCH 23 L (28-32) pg RDW 17.1 H (13.2-15.2) % Lymph % (Auto) (13.4-35.0) % Dunn % (Auto) (0.0-7.3) % Lymph # (1.2-5.4) K/mm3 Seg Neutrophils % (40.0-70.0) % Sodium 133 L (137-145) mmol/L Chloride 92.9 L (98-107) mmol/L BUN 26 H (7-17) mg/dL Creatinine 4.5 H (0.7-1.2) mg/dL Glucose 216 H (65-100) mg/dL POC Glucose (70-105) C-Reactive Protein 6.40 H (0.00-1.30) mg/dL 12/03/18 Range/Units 07:58 Hgb (10.1-14.3) gm/dl Hct (30.3-42.9) % MCV (79-97) fl MCH (28-32) pg RDW (13.2-15.2) % Lymph % (Auto) (13.4-35.0) % Dunn % (Auto) (0.0-7.3) % Lymph # (1.2-5.4) K/mm3 Seg Neutrophils % (40.0-70.0) % Sodium (137-145) mmol/L Chloride (98-107) mmol/L BUN (7-17) mg/dL Creatinine (0.7-1.2) mg/dL Glucose (65-100) mg/dL POC Glucose 150 H (70-105) C-Reactive Protein (0.00-1.30) mg/dL
--- NOTE | 2018-12-03 10:45 | Consultation ---
History of Present Illness - HPI Consult reason: other History of present illness: 78-year-old female with a history of diabetes and renal failure patient underwent a ray amputation by Dr. Munoz 1 week ago patient was readmitted to the hospital for a unrelated medical issue asked to see regarding possibility of exposed bone at operative site Past History Past Medical History: COPD, ESRD, hypertension, stroke Social history: other (Unobtainable) Family history: other (Unobtainable) Medications and Allergies Allergies Allergy/AdvReac Type Severity Reaction Status Date / Time Iodinated Contrast- Oral and Allergy Hives, Rash Verified 11/25/18 15:48 IV Dye Penicillins Allergy Hives Verified 11/25/18 15:48 Home Medications Medication Instructions Recorded Confirmed Last Taken Type Ezetimibe [Zetia] 10 mg PO HS 05/11/14 12/02/18 11/25/18 20:00 History Levothyroxine [Synthroid] 50 mcg PO DAILY 05/11/14 11/29/18 11/26/18 05:00 History B Complex 11/Folic/C/Biot/Zinc 1 each PO DAILY 09/06/15 12/02/18 11/25/18 20:00 History [Dialyvite with Zinc Tablet] Pravastatin [Pravachol] 40 mg PO QHS 09/06/15 11/29/18 11/25/18 20:00 History Calcium Acetate [Phoslo] 667 mg PO TID 06/25/17 12/02/18 11/28/18 History Meloxicam [Mobic] 7.5 mg PO DAILY 06/25/17 12/02/18 11/28/18 History Pregabalin [Lyrica] 75 mg PO BID 06/25/17 11/29/18 11/25/18 20:00 History Lispro Insulin [Humalog] 0 unit SQ AC 11/25/18 12/02/18 Unknown History Oxycodone HCl [Roxicodone] 5 mg PO DAILY PRN 11/25/18 12/02/18 11/25/18 10:00 History Pantoprazole Sodium 40 mg PO DAILY 11/25/18 11/29/18 11/26/18 05:00 History amLODIPine [Norvasc] 2.5 mg PO DAILY 11/25/18 12/02/18 11/28/18 History 2.5 levoFLOXacin [Levaquin TAB] 250 mg PO Q48HR 11/25/18 12/02/18 11/28/18 History 250 Doxycycline [Vibramycin CAP] 100 mg PO Q12HR 14 Days #28 capsule 11/26/18 12/02/18 11/28/18 Rx oxyCODONE /ACETAMINOPHEN [Percocet 1 tab PO Q6HR PRN #30 tablet 11/26/18 12/02/18 11/28/18 Rx 5/325] Omeprazole 20 mg PO DAILY 11/29/18 12/02/18 Unknown History levoFLOXacin [Levaquin TAB] 500 mg PO Q48HR 11/29/18 12/02/18 11/28/18 History 500 Active Meds: Active Medications Acetaminophen (Tylenol) 650 mg PO Q4H PRN PRN Reason: Pain MILD(1-3)/Fever >100.5/DALE Amlodipine Besylate (Norvasc) 2.5 mg PO DAILY [facility] Last Admin: 12/03/18 09:32 Dose: 2.5 mg Documented by: Calcium Acetate (Phoslo) 667 mg PO TID [facility] Last Admin: 12/03/18 09:31 Dose: 667 mg Documented by: Dextrose (D50w (25gm) Syringe) 50 ml IV PRN PRN PRN Reason: Hypoglycemia Docusate Sodium (Colace) 100 mg PO BID [facility] Last Admin: 12/03/18 09:31 Dose: 100 mg Documented by: Epoetin Quincy (Procrit) 10,000 unit IV ANNI PRN PRN Reason: hemodialysis Last Admin: 11/29/18 17:30 Dose: 10,000 unit Documented by: Heparin Sodium (Porcine) (Heparin) 5,000 unit IV ANNI PRN PRN Reason: hemodialysis Heparin Sodium (Porcine) (Heparin 10,000 Units/10 Ml) 2,000 unit IV ANNI PRN PRN Reason: hemodialysis Hydromorphone HCl (Dilaudid) 0.5 mg IV Q3H PRN PRN Reason: Pain , Severe (7-10) Last Admin: 12/01/18 20:18 Dose: 0.5 mg Documented by: Sodium Chloride (Nacl 0.9%) 100 mls @ 999 mls/hr IV ANNI PRN PRN Reason: Hypotension Cefepime HCl (Maxipime/Ns 1 Gm/100 Ml) 1 gm in 100 mls @ 200 mls/hr IV Q24H [facility]; Protocol Last Admin: 12/03/18 03:24 Dose: 200 mls/hr Documented by: Metronidazole (Flagyl 500 Mg/100 Ml) 500 mg in 100 mls @ 100 mls/hr IV Q8HR [facility]; Protocol Last Admin: 12/03/18 06:31 Dose: 100 mls/hr Documented by: Insulin Glargine (Lantus) 10 units SUB-Q QHS PRN PRN Reason: HYPERGLYCEMIC Insulin Human Lispro (Humalog) 0 unit SUB-Q ACHS [facility]; Protocol Last Admin: 12/03/18 09:39 Dose: 3 unit Documented by: Levothyroxine Sodium (Synthroid) 50 mcg PO DAILY [facility] Last Admin: 12/03/18 09:33 Dose: 50 mcg Documented by: Metoclopramide HCl (Reglan) 10 mg IV Q6H PRN PRN Reason: Nausea And Vomiting Last Admin: 12/01/18 09:35 Dose: 10 mg Documented by: Multivit/Ca Carb/B Cmplx/FA/Prenat (Renal Caps) 1 cap PO QDAY [facility] Last Admin: 12/03/18 09:31 Dose: 1 cap Documented by: Ondansetron HCl (Zofran) 4 mg IV Q8H PRN PRN Reason: Nausea And Vomiting Oxycodone/Acetaminophen (Percocet 5/325) 1 tab PO Q6HR PRN PRN Reason: Pain Last Admin: 12/03/18 03:33 Dose: 1 tab Documented by: Pantoprazole Sodium (Protonix) 40 mg PO DAILY [facility] Last Admin: 12/03/18 09:32 Dose: 40 mg Documented by: Polyethylene Glycol (Miralax 3350) 17 gm PO QDAY [facility] Last Admin: 12/03/18 09:33 Dose: 17 gm Documented by: Pravastatin Sodium (Pravachol) 40 mg PO QHS [facility] Last Admin: 12/02/18 22:36 Dose: 40 mg Documented by: Pregabalin (Lyrica) 75 mg PO BID [facility] Last Admin: 12/03/18 09:31 Dose: 75 mg Documented by: Sodium Chloride (Sodium Chloride Flush Syringe 10 Ml) 10 ml IV BID [facility] Last Admin: 12/03/18 09:34 Dose: 10 ml Documented by: Sodium Chloride (Sodium Chloride Flush Syringe 10 Ml) 10 ml IV PRN PRN PRN Reason: LINE FLUSH Physical Examination - Physical exam Narrative exam: At the right foot the dressings were removed patient was noted to have a open third ray amputation there is minimal bleeding no signs of infection no exposed bone was noted Eyes: PERRL ENT: Positive: clear oral mucosa Respiratory effort: normal Respiratory: bilateral: CTA Rhythm: regular Heart Sounds: Positive: S1 & S2 General gastrointestinal: Positive: soft, non-tender, non-distended, normal bowel sounds Integumentary: clear, warm, dry Neurologic: Positive: CNII-XII intact, moves all extremities, gait normal. Negative: focal deficits - Cervical Spine Neck pain: none Tenderness with palpation: none Full ROM: yes ROM: flexion: normal ROM: extension: normal ROM: rotation right: normal ROM: rotation left: normal ROM: lateral flexion right: normal ROM: lateral flexion left: normal - Lumbar Spine Back pain: none Tenderness with palpation: none Appearance: normal Full ROM: yes ROM: flexion: normal ROM: extension: normal ROM: rotation right: normal ROM: rotation left: normal ROM: lateral flexion right: normal ROM: lateral flexion left: normal Assessment and Plan Status post third ray amputation right foot Recommendation daily dressing changes right foot along with observation at this time
--- NOTE | 2018-12-03 17:05 | Progress Note ---
Assessment and Plan /Acute metabolic encephalopathy, appears back to baseline per Daughter. Neurology is following. /Leukocytosis, does not meet criteria for sepsis, likely from 3rd toe amputation site infection: ? Osteomyelitis. The necrosis around the site may need debridement, consulted Ortho because of the bone exposure. consulted ID for antibiotic management. S/p MRI of the right foot - result pending /GILBERTO: consulted Respiratory, cont on bipap at bedtime /Atelectasis of lung: nebs and incentive spirometry /ESRD on HD: Nephrology following /IDDM: continue insulin, added SSI /Hypothyroidism: continue synthroid DVT ppx Brief History This patient is a 78 year old women with a past medical history of blindness, ESRD on HD, Hypertension, CVA, CHF, IDDM, COPD, GILBERTO on bipap, hypthyroidism, s/p amputation of gangrnous, infected right 3rd toe on 11/26/[address] Munoz, Findings post-op was consistent with osteomyelitis of proximal phalanx. Surgical cultures grew Beta Hemolytic strep group B. She presented to the ED on 11/29/18 with Altered Mental Status. On admission WBC 13.3, Creatinine 8.2, Temperature 99.1, HR 73, BP 130/58, Blood cultures were drawn and show no growth to date. Chest xray shows no consolidation. Head CT shows no acute intracranial abnormality. Chronic microvascular ischemic disease in the subcortical and periventricular white matter. ID consulted for abx recommendation, no further debridement planned by Ortho/GS Hospitalist Physical GENERAL: elderly AAF lying on bed appeared to be in no discomfort. HEENT: Normocephalic. Atraumatic. No conjunctival congestion or icterus. Patient has moist mucous membranes. legally blind NECK: Supple. Trachea midline. CHEST/LUNGS: Clear to auscultated bilaterally, breathing nonlabored. No wheezes crackles or rhonchi. HEART/CARDIOVASCULAR: Regular in rate and rhythm. S1 and S2 positive. ABDOMEN: Abdomen is soft, nontender. Patient has normal bowel sounds. SKIN: There is no rash. Warm and dry. NEURO: No focal motor deficit. Follows command. MUSCULOSKELETAL: with right foot dressing. FOOT IS VERY PAINFUL TO TOUCH. EDEMATOUS. NO ODOR. EXTRIMITY: No edema, no cyanosis or clubbing. PSYCH: Cooperative. Subjective Date of service: 12/03/18 Interval history: Patient seen and examined. Medical records and medication list reviewed. No acute event overnight noted by the RN. Patient denies any chest pain or difficulty breathing. Patient is tolerating diet. Complaints of right foot pain Discussed plan of care at bedside with patient and her daughter. Objective - Constitutional Vitals: Vital Signs - 12hr 12/03/18 12/03/18 12/03/18 06:09 07:55 08:51 Temperature 97.0 F L Pulse Rate 63 Respiratory 18 Rate Blood Pressure 120/49 O2 Sat by Pulse 98 Oximetry 12/03/18 11:57 Temperature 97.7 F Pulse Rate Respiratory 18 Rate Blood Pressure 106/52 O2 Sat by Pulse Oximetry - Labs CBC & Chem 7: 12/03/18 04:48 12/03/18 04:48 Labs: Abnormal lab results 12/03/18 12/03/18 12/03/18 Range/Units 00:33 00:41 00:41 Hgb 9.2 L (10.1-14.3) gm/dl Hct 29.5 L (30.3-42.9) % MCV 75 L (79-97) fl MCH 23 L (28-32) pg RDW 17.0 H (13.2-15.2) % Lymph % (Auto) 8.2 L (13.4-35.0) % Luna % (Auto) 8.5 H (0.0-7.3) % Lymph # 0.8 L (1.2-5.4) K/mm3 Seg Neutrophils % 80.3 H (40.0-70.0) % Sodium (137-145) mmol/L Chloride (98-107) mmol/L BUN (7-17) mg/dL Creatinine (0.7-1.2) mg/dL Glucose (65-100) mg/dL POC Glucose 248 H (70-105) C-Reactive Protein 6.40 H (0.00-1.30) mg/dL 12/03/18 12/03/18 12/03/18 Range/Units 04:48 04:48 07:58 Hgb 9.2 L (10.1-14.3) gm/dl Hct 29.6 L (30.3-42.9) % MCV 76 L (79-97) fl MCH 23 L (28-32) pg RDW 17.1 H (13.2-15.2) % Lymph % (Auto) (13.4-35.0) % Luna % (Auto) (0.0-7.3) % Lymph # (1.2-5.4) K/mm3 Seg Neutrophils % (40.0-70.0) % Sodium 133 L (137-145) mmol/L Chloride 92.9 L (98-107) mmol/L BUN 26 H (7-17) mg/dL Creatinine 4.5 H (0.7-1.2) mg/dL Glucose 216 H (65-100) mg/dL POC Glucose 150 H (70-105) C-Reactive Protein (0.00-1.30) mg/dL 12/03/18 Range/Units 15:41 Hgb (10.1-14.3) gm/dl Hct (30.3-42.9) % MCV (79-97) fl MCH (28-32) pg RDW (13.2-15.2) % Lymph % (Auto) (13.4-35.0) % Luna % (Auto) (0.0-7.3) % Lymph # (1.2-5.4) K/mm3 Seg Neutrophils % (40.0-70.0) % Sodium (137-145) mmol/L Chloride (98-107) mmol/L BUN (7-17) mg/dL Creatinine (0.7-1.2) mg/dL Glucose (65-100) mg/dL POC Glucose 185 H (70-105) C-Reactive Protein (0.00-1.30) mg/dL
[2018-12-03] MEDS: PRAVACHOL PO SCH (21:28)
--- NOTE | 2018-12-03 22:03 | Magnetic Resonance Report ---
PROCEDURE: MRI RIGHT FOOT WITHOUT CONTRAST TECHNIQUE: Magnetic resonance imaging of the RIGHT foot was performed using standard pulse sequences . CPT 76312 HISTORY: Right foot pain COMPARISONS: Radiograph 12/01/2018 . FINDINGS: There has been amputation through the third metatarsal. No marrow edema is seen. There is a focus of low signal at the amputation site, likely related to soft tissue air. No soft tissue fluid collection is seen. There is diffuse subcutaneous edema. IMPRESSION: No bone marrow edema is seen to suggest osteomyelitis. . This document is electronically signed by Maryellen Gregory MD., December 03 2018 10:01:38 PM ET
[2018-12-04] MEDS ORDERED: FLEET PR ONE (00:44)
[2018-12-04] MEDS: MAXIPIME/NS 1 GM/100 ML 1 GM/100 ML BAG IV SCH (01:21)
[2018-12-04] MEDS: HumaLOG SUB-Q SCH ×5 (01:22→22:18)
[2018-12-04] MEDS: DILAUDID IV PRN ×2 (01:22→16:38)
[2018-12-04] MEDS: FLAGYL 500 MG/100 ML 500 MG/100 ML BAG IV SCH ×3 (07:15→22:16)
--- NOTE | 2018-12-04 08:58 | Progress Note ---
Assessment and Plan 1. ESRD: Continue hemodialysis three times a week, TTS schedule. HD today. 2. Right foot amputation site infection: No e/o osteomyelitis. Followed by ID. 3. Acute metabolic encephalopathy: Improved. 4. Anemia: Epogen with HD. 5. GILBERTO: CPAP. 6. DM type 2. 7. HTN. Subjective Date of service: 12/04/18 Interval history: Patient was seen and examined at the bedside. No new complaint. Objective - Vital Signs Vital signs: Vital Signs - 12hr 12/03/18 12/04/18 12/04/18 22:00 01:20 01:22 Temperature Pulse Rate Respiratory 20 Rate Respiratory 20 Rate [rectum] Blood Pressure O2 Sat by Pulse 97 Oximetry 12/04/18 12/04/18 12/04/18 01:52 02:49 03:00 Temperature 98.3 F Pulse Rate 60 Respiratory 20 20 20 Rate Respiratory Rate [rectum] Blood Pressure 129/54 O2 Sat by Pulse 98 98 Oximetry 12/04/18 07:56 Temperature 99.5 F Pulse Rate 66 Respiratory 18 Rate Respiratory Rate [rectum] Blood Pressure 115/42 O2 Sat by Pulse 99 Oximetry - General Appearance General appearance: well-developed, appears stated age, other (not in distress) EENT: ATNC Neck: supple Respiratory: Present: Clear to Ascultation Cardiology: regular, S1S2, no murmurs Gastrointestinal: normoactive bowel sounds, no tenderness, no distended Integumentary: no rash, ulcer (right foot dressing noted) Neurologic: no asterixis, other (diminished vision) Musculoskeletal: other (left arm AVF, no edema) - Lab 12/03/18 04:48 12/03/18 04:48 Most recent lab results Calcium 9.1 mg/dL (8.4-10.2) 12/03/18 04:48 Phosphorus 4.30 mg/dL (2.5-4.5) 11/30/18 07:05 Magnesium 1.80 mg/dL (1.7-2.3) 11/30/18 07:05 Medications & Allergies - Medications Allergies/Adverse Reactions: Allergies Iodinated Contrast- Oral and IV Dye Allergy (Verified 11/25/18 15:48) Hives, Rash Penicillins Allergy (Verified 11/25/18 15:48) Hives Home Medications: Home Medications Medication Instructions Recorded Confirmed Last Taken Type Ezetimibe [Zetia] 10 mg PO HS 05/11/14 12/02/18 11/25/18 20:00 History Levothyroxine [Synthroid] 50 mcg PO DAILY 05/11/14 11/29/18 11/26/18 05:00 History B Complex 11/Folic/C/Biot/Zinc 1 each PO DAILY 09/06/15 12/02/18 11/25/18 20:00 History [Dialyvite with Zinc Tablet] Pravastatin [Pravachol] 40 mg PO QHS 09/06/15 11/29/18 11/25/18 20:00 History Calcium Acetate [Phoslo] 667 mg PO TID 06/25/17 12/02/18 11/28/18 History Meloxicam [Mobic] 7.5 mg PO DAILY 06/25/17 12/02/18 11/28/18 History Pregabalin [Lyrica] 75 mg PO BID 06/25/17 11/29/18 11/25/18 20:00 History Lispro Insulin [Humalog] 0 unit SQ AC 11/25/18 12/02/18 Unknown History Oxycodone HCl [Roxicodone] 5 mg PO DAILY PRN 11/25/18 12/02/18 11/25/18 10:00 History Pantoprazole Sodium 40 mg PO DAILY 11/25/18 11/29/18 11/26/18 05:00 History amLODIPine [Norvasc] 2.5 mg PO DAILY 11/25/18 12/02/18 11/28/18 History 2.5 levoFLOXacin [Levaquin TAB] 250 mg PO Q48HR 11/25/18 12/02/18 11/28/18 History 250 Doxycycline [Vibramycin CAP] 100 mg PO Q12HR 14 Days #28 capsule 11/26/18 12/02/18 11/28/18 Rx oxyCODONE /ACETAMINOPHEN [Percocet 1 tab PO Q6HR PRN #30 tablet 11/26/18 12/02/18 11/28/18 Rx 5/325] Omeprazole 20 mg PO DAILY 11/29/18 12/02/18 Unknown History levoFLOXacin [Levaquin TAB] 500 mg PO Q48HR 11/29/18 12/02/18 11/28/18 History 500 Active Medications: Generic Name Dose Route Start Last Admin Trade Name Freq PRN Reason Stop Dose Admin Acetaminophen 650 mg 11/29/18 11:39 Tylenol PO Q4H PRN Pain MILD(1-3)/Fever >100.5/DALE Amlodipine Besylate 2.5 mg 11/29/18 12:00 12/03/18 09:32 Norvasc PO 2.5 mg DAILY JUAQUIN Administration Calcium Acetate 667 mg 11/29/18 14:00 12/03/18 21:28 Phoslo PO 667 mg TID JUAQUIN Administration Dextrose 50 ml 12/01/18 15:06 D50w (25gm) Syringe IV PRN PRN Hypoglycemia Docusate Sodium 100 mg 12/03/18 10:00 12/03/18 21:28 Colace PO 100 mg BID JUAQUIN Administration Epoetin Quincy 10,000 unit 11/29/18 12:25 11/29/18 17:30 Procrit IV 10,000 unit ANNI PRN Administration hemodialysis Heparin Sodium (Porcine) 5,000 unit 11/29/18 12:25 Heparin IV ANNI PRN hemodialysis Heparin Sodium (Porcine) 2,000 unit 11/29/18 12:25 Heparin 10,000 Units/10 Ml IV ANNI PRN hemodialysis Hydromorphone HCl 0.5 mg 11/29/18 11:39 12/04/18 01:22 Dilaudid IV 0.5 mg Q3H PRN Administration Pain , Severe (7-10) Sodium Chloride 100 mls @ 999 mls/hr 11/29/18 12:25 Nacl 0.9% IV ANNI PRN Hypotension Cefepime HCl 1 gm in 100 mls @ 200 mls/hr 11/30/18 02:00 12/04/18 01:21 Maxipime/Ns 1 Gm/100 Ml IV 200 mls/hr Q24H JUAQUIN Administration Protocol Metronidazole 500 mg in 100 mls @ 100 mls/hr 12/02/18 22:00 12/04/18 07:15 Flagyl 500 Mg/100 Ml IV 100 mls/hr Q8HR JUAQUIN Administration Protocol Insulin Glargine 10 units 11/29/18 11:52 Lantus SUB-Q QHS PRN HYPERGLYCEMIC Insulin Human Lispro 0 unit 12/01/18 16:30 12/04/18 01:22 Humalog SUB-Q 4 unit ACHS JUAQUIN Administration Protocol Levothyroxine Sodium 50 mcg 11/29/18 12:00 12/03/18 21:11 Synthroid PO Not Given DAILY JUAQUIN Metoclopramide HCl 10 mg 11/29/18 11:39 12/01/18 09:35 Reglan IV 10 mg Q6H PRN Administration Nausea And Vomiting Multivit/Ca Carb/B Cmplx/FA/Prenat 1 cap 11/29/18 14:00 12/03/18 21:11 Renal Caps PO Not Given QDAY JUAQUIN Ondansetron HCl 4 mg 11/29/18 11:39 Zofran IV Q8H PRN Nausea And Vomiting Oxycodone/Acetaminophen 1 tab 11/29/18 11:34 12/03/18 03:33 Percocet 5/325 PO 1 tab Q6HR PRN Administration Pain Pantoprazole Sodium 40 mg 11/29/18 12:00 12/03/18 21:11 Protonix PO Not Given DAILY JUAQUIN Polyethylene Glycol 17 gm 12/01/18 15:00 12/03/18 09:33 Miralax 3350 PO 17 gm QDAY JUAQUIN Administration Pravastatin Sodium 40 mg 11/29/18 22:00 12/03/18 21:28 Pravachol PO 40 mg QHS JUAQUIN Administration Pregabalin 75 mg 11/29/18 12:00 12/03/18 21:28 Lyrica PO 75 mg BID JUAQUIN Administration Sodium Chloride 10 ml 11/29/18 12:00 12/03/18 23:32 Sodium Chloride Flush Syringe 10 Ml IV 10 ml BID JUAQUIN Administration Sodium Chloride 10 ml 11/29/18 11:39 Sodium Chloride Flush Syringe 10 Ml IV PRN PRN LINE FLUSH
--- NOTE | 2018-12-04 09:29 | Progress Note ---
Assessment and Plan Cultures: 11/29/2018 Blood: no growth to date A/P: 78-year-old female a past medical history of blindness, ESRD on HD, Hypertension, CVA, CHF, IDDM, COPD, GILBERTO on bipap, hypthyroidism, s/p amputation of gangrenous, infected right 3rd toe amputation of right third toe on 11/26/[address] Munoz, Findings post-op were consistent with osteomyelitis of proximal phalanx. Surgical cultures grew Beta Hemolytic strep group B. Patient was sent home on Doxycycline and Levaquin PO. Now admitted with: 1. Leukocytosis on admission: Resolved. unclear etiology, likely infected right 3rd toe amputation site. S/p amputation 2 weeks ago.. No fever. Chest xray shows no consolidation. CRP 6.4, ESR 52. 2 . Amputation Site Infection: s/p amputation of right 3rd toe on 11/26/18 . At that time surgical cultures grew Beta Hemolytic Strep group B.. On admission, wound care nurse noted 3rd toe amputation site with moderate amount of serosanguineous drainage, measuring 4x2x4, Wound culture ordered but not collected.. Debridement not recommended at this time- Ortho following - Foot xray shows adjacent soft tissue irregularity which could be postoperative in nature.. No acute bony destructive changes are observed. . Skeletal structures are osteopenic. -MRI shows no bone marrow edema to suggest osteomylitis. 3. ESRD on HD: left arm AVF. Antibiotics renally dosed. Nephrology following. 4. Type 2 Diabetes: uncontrolled 5. Acute Encephalopathy: metabolic? Improved Plan: - f/u wound culture, ordered but not collected -f/u blood culture Continue Cefepime 1gm IV every 24 hours -Continue Flagyl 500mg IV every 8 hours -Anticipate discharge on Cefazolin 2 gms IV Saturday,, 2gms IV and 3gms IV Saturday, post HD. for total 3 weeks ending 12-21-18 and Flagyl 500mg PO every 8 hours for total 2 weeks ending 12-16-18 -order placed with case management -wound care clinic followup outpatient --f/u ID clinic in 2 weeks d/w Dr. Adelina Proctor, LOGISTICS MANAGEMENT SPECIALIST [facility] M: [phone] O:[phone] Subjective Date of service: 04/04/19 Interval history: Patient seen and examined. Laying in bed, sleepy. Denies pain or SOB. no fevers. Daughter at bedside. Objective - Exam Narrative Exam: Constitutional: Asleep, arousable. No acute distress Head, Ears, Nose: Normocephalic, atraumatic. External ears, nose normal Eyes: Conjunctivae/corneas clear. No icterus. No ptosis. Neck: Supple, no meningeal signs Oral: dentition poor, no thrush Cardiovascular: S1, S2 normal. Respiratory: Good air entry, clear to auscultation bilaterally GI: Soft, non-tender; bowel sounds normal. No peritoneal signs Musculoskeletal: s/p 3rd toe amputation wrapped with dressing, D/I Skin: No rash or abscess. Hem/Lymphatic: No palpable cervical or supraclavicular nodes. No lymphangitis Psych: Mood ok. Affect normal Neurological: Awake, alert, oriented. - Constitutional Vitals: Vital Signs Temp Pulse Resp BP Pulse Ox 99.5 F 66 18 115/42 99 12/04/18 07:56 12/04/18 07:56 12/04/18 07:56 12/04/18 07:56 12/04/18 07:56 Temperature -Last 24 Hours Temperature 99.5 F Temperature 98.3 F Temperature 98.4 F Temperature 98.0 F Temperature 97.7 F - Labs CBC & Chem 7: 12/03/18 04:48 12/03/18 04:48 Labs: Abnormal lab results 12/03/18 12/04/18 Range/Units 15:41 00:22 POC Glucose 185 H 201 H (70-105)
[2018-12-04] MEDS: PHOSLO PO SCH ×3 (09:46→20:17)
[2018-12-04] MEDS: COLACE PO SCH ×3 (09:47→22:16)
[2018-12-04] MEDS: SODIUM CHLORIDE FLUSH SYRINGE 10 ML IV SCH ×2 (09:48→22:17)
[2018-12-04] MEDS: LYRICA PO SCH ×2 (09:48→22:17)
[2018-12-04] MEDS: Renal Caps PO SCH (09:48)
[2018-12-04] MEDS: MIRALAX 3350 PO SCH (09:48)
[2018-12-04] MEDS: PROTONIX PO SCH (09:48)
[2018-12-04] MEDS: SYNTHROID PO SCH (09:48)
[2018-12-04] MEDS: NORVASC PO SCH (09:48)
[2018-12-04] MEDS ORDERED: DULCOLAX PO PRN (10:52)
[2018-12-04] MEDS ORDERED: FLEET MINERAL OIL PR ONE (10:52)
[2018-12-04] MEDS ORDERED: NACL 0.9 (PRIMING MACHINE ONLY DIALYSIS) MC ONE (11:52)
[2018-12-04] MEDS: PROCRIT IV PRN (11:56)
--- NOTE | 2018-12-04 15:55 | Progress Note ---
Assessment and Plan /Acute metabolic encephalopathy, appears back to baseline per Daughter. Neurology is following. CT head unremarkable. /Right foot cellulitis - The necrosis around the 3rd toe amputation site may need debridement, consulted Ortho because of the bone exposure but recommended local wound care. consulted ID for antibiotic management. S/p MRI of the right foot - showed no sign of osteomylitis. cont iv abx per ID. wait for wound cx result for final abx recommendation /Leukocytosis, does not meet criteria for sepsis, likely from 3rd toe amputation site infection/cellulitis: /GILBERTO: consulted Respiratory, cont on bipap at bedtime /Atelectasis of lung: nebs and incentive spirometry /ESRD on HD: Nephrology following /IDDM: continue insulin, added SSI /Hypothyroidism: continue synthroid /Constipation, cont stool softner DVT px with heparin Brief History This patient is a 78 year old women with a past medical history of blindness, ESRD on HD, Hypertension, CVA, CHF, IDDM, COPD, GILBERTO on bipap, hypthyroidism, s/p amputation of gangrnous, infected right 3rd toe on 11/26/[address] Munoz, Findings post-op was consistent with osteomyelitis of proximal phalanx. Surgical cultures grew Beta Hemolytic strep group B. She presented to the ED on 11/29/18 with Altered Mental Status. On admission WBC 13.3, Creatinine 8.2, Temperature 99.1, HR 73, BP 130/58, Blood cultures were drawn and show no growth to date. Chest xray shows no consolidation. Head CT shows no acute intracranial abnormality. Chronic microvascular ischemic disease in the subcortical and periventricular white matter. ID consulted for abx recommendation, no further debridement planned by Ortho/GS, wait for final wound cx result Hospitalist Physical GENERAL: elderly AAF lying on bed appeared to be in no discomfort. HEENT: Normocephalic. Atraumatic. No conjunctival congestion or icterus. Patient has moist mucous membranes. legally blind NECK: Supple. Trachea midline. CHEST/LUNGS: Clear to auscultated bilaterally, breathing nonlabored. No wheezes crackles or rhonchi. HEART/CARDIOVASCULAR: Regular in rate and rhythm. S1 and S2 positive. ABDOMEN: Abdomen is soft, nontender. Patient has normal bowel sounds. SKIN: There is no rash. Warm and dry. NEURO: No focal motor deficit. Follows command. MUSCULOSKELETAL: with right foot dressing. FOOT IS VERY PAINFUL TO TOUCH. EDEMATOUS. NO ODOR. EXTRIMITY: No edema, no cyanosis or clubbing. PSYCH: Cooperative. Subjective Date of service: 12/04/18 Interval history: Patient seen and examined. Medical records and medication list reviewed. No acute event overnight noted by the RN. Patient denies any chest pain or difficulty breathing. Patient is tolerating diet. Complaints of constipation, states last BM was 2 weeks ago Discussed plan of care at bedside with patient and her daughter. Objective - Constitutional Vitals: Vital Signs - 12hr 12/04/18 12/04/18 12/04/18 07:56 09:30 09:40 Temperature 99.5 F 98.4 F Pulse Rate 66 69 69 Respiratory 18 16 Rate Blood Pressure 115/42 135/63 135/63 O2 Sat by Pulse 99 Oximetry 12/04/18 12/04/18 12/04/18 09:45 10:00 10:15 Temperature Pulse Rate 66 68 70 Respiratory Rate Blood Pressure 128/65 131/65 129/63 O2 Sat by Pulse Oximetry 12/04/18 12/04/18 12/04/18 10:30 10:45 11:00 Temperature Pulse Rate 66 68 69 Respiratory Rate Blood Pressure 132/58 130/58 148/57 O2 Sat by Pulse Oximetry 12/04/18 12/04/18 12/04/18 11:15 11:30 11:45 Temperature Pulse Rate 66 67 71 Respiratory Rate Blood Pressure 137/59 133/60 148/58 O2 Sat by Pulse Oximetry 12/04/18 12/04/18 12/04/18 12:02 12:15 12:30 Temperature Pulse Rate 69 67 76 Respiratory Rate Blood Pressure 130/58 124/66 148/71 O2 Sat by Pulse Oximetry 12/04/18 12/04/18 12/04/18 12:45 13:10 13:48 Temperature 97.6 F Pulse Rate 69 70 70 Respiratory 16 Rate Blood Pressure 123/56 130/50 138/55 O2 Sat by Pulse Oximetry 12/04/18 13:58 Temperature 97.9 F Pulse Rate 74 Respiratory 17 Rate Blood Pressure 141/56 O2 Sat by Pulse 99 Oximetry - Labs CBC & Chem 7: 12/03/18 04:48 12/03/18 04:48 Labs: Abnormal lab results 12/03/18 12/04/1812/04/19 Range/Units 15:41 00:22 14:08 POC Glucose 185 H 201 H 187 H (70-105)
[2018-12-04] MEDS: PRAVACHOL PO SCH (22:16)
[2018-12-04] MEDS: REGLAN IV PRN (23:37)
[2018-12-05] MEDS: MAXIPIME/NS 1 GM/100 ML 1 GM/100 ML BAG IV SCH (02:16)
[2018-12-05] MEDS: FLAGYL 500 MG/100 ML 500 MG/100 ML BAG IV SCH ×2 (06:26→13:19)
--- NOTE | 2018-12-05 07:48 | Progress Note ---
Assessment and Plan 1. ESRD: Continue hemodialysis three times a week, TTS schedule. 2. Right foot amputation site infection: No e/o osteomyelitis. Followed by ID. 3. Acute metabolic encephalopathy: Improved. 4. Anemia: Epogen with HD. 5. GILBERTO: CPAP. 6. DM type 2. 7. HTN. Subjective Date of service: 12/05/18 Interval history: Patient was seen and examined at the bedside. No new complaint. Objective - Vital Signs Vital signs: Vital Signs - 12hr 12/05/18 12/05/18 02:13 03:53 Temperature 98.3 F Pulse Rate 58 L Respiratory 22 Rate Blood Pressure 112/46 O2 Sat by Pulse 98 Oximetry - General Appearance General appearance: well-developed, appears stated age, other (not in distress) EENT: ATNC Neck: supple Respiratory: Present: Clear to Ascultation Cardiology: regular, S1S2, no murmurs Gastrointestinal: normoactive bowel sounds, no tenderness, no distended Integumentary: ulcer (right foot covered with dressing) Neurologic: no asterixis, other (diminishes vision) Musculoskeletal: other (no edema, left arm AVF) - Lab 12/05/18 15:00 12/05/18 07:33 Most recent lab results Calcium 9.1 mg/dL (8.4-10.2) 12/03/18 04:48 Phosphorus 4.30 mg/dL (2.5-4.5) 11/30/18 07:05 Magnesium 1.80 mg/dL (1.7-2.3) 11/30/18 07:05 Medications & Allergies - Medications Allergies/Adverse Reactions: Allergies Iodinated Contrast- Oral and IV Dye Allergy (Verified 11/25/18 15:48) Hives, Rash Penicillins Allergy (Verified 11/25/18 15:48) Hives Home Medications: Home Medications Medication Instructions Recorded Confirmed Last Taken Type Ezetimibe [Zetia] 10 mg PO HS 05/11/14 12/02/18 11/25/18 20:00 History Levothyroxine [Synthroid] 50 mcg PO DAILY 05/11/14 11/29/18 11/26/18 05:00 History B Complex 11/Folic/C/Biot/Zinc 1 each PO DAILY 09/06/15 12/02/18 11/25/18 20:00 History [Dialyvite with Zinc Tablet] Pravastatin [Pravachol] 40 mg PO QHS 09/06/15 11/29/18 11/25/18 20:00 History Calcium Acetate [Phoslo] 667 mg PO TID 06/25/17 12/02/18 11/28/18 History Meloxicam [Mobic] 7.5 mg PO DAILY 06/25/17 12/02/18 11/28/18 History Pregabalin [Lyrica] 75 mg PO BID 06/25/17 11/29/18 11/25/18 20:00 History Lispro Insulin [Humalog] 0 unit SQ AC 11/25/18 12/02/18 Unknown History Oxycodone HCl [Roxicodone] 5 mg PO DAILY PRN 11/25/18 12/02/18 11/25/18 10:00 History Pantoprazole Sodium 40 mg PO DAILY 11/25/18 11/29/18 11/26/18 05:00 History amLODIPine [Norvasc] 2.5 mg PO DAILY 11/25/18 12/02/18 11/28/18 History 2.5 levoFLOXacin [Levaquin TAB] 250 mg PO Q48HR 11/25/18 12/02/18 11/28/18 History 250 Doxycycline [Vibramycin CAP] 100 mg PO Q12HR 14 Days #28 capsule 11/26/18 12/02/18 11/28/18 Rx oxyCODONE /ACETAMINOPHEN [Percocet 1 tab PO Q6HR PRN #30 tablet 11/26/18 04/0 10/2111/28/18 Rx 5/325] Omeprazole 20 mg PO DAILY 11/29/18 12/02/18 Unknown History levoFLOXacin [Levaquin TAB] 500 mg PO Q48HR 11/29/18 12/02/18 11/28/18 History 500 Active Medications: Generic Name Dose Route Start Last Admin Trade Name Freq PRN Reason Stop Dose Admin Acetaminophen 650 mg 11/29/18 11:39 Tylenol PO Q4H PRN Pain MILD(1-3)/Fever >100.5/DALE Amlodipine Besylate 2.5 mg 11/29/18 12:00 12/04/18 09:48 Norvasc PO Not Given DAILY JUAQUIN Bisacodyl 10 mg 12/04/18 10:52 Dulcolax PO QDAY PRN Constipation Calcium Acetate 667 mg 11/29/18 14:00 12/04/18 20:17 Phoslo PO 667 mg TID JUAQUIN Administration Dextrose 50 ml 12/01/18 15:06 D50w (25gm) Syringe IV PRN PRN Hypoglycemia Docusate Sodium 100 mg 12/04/18 11:00 12/04/18 22:16 Colace PO 100 mg BID JUAQUIN Administration Epoetin Quincy 10,000 unit 11/29/18 12:25 12/04/18 11:56 Procrit IV 10,000 unit ANNI PRN Administration hemodialysis Heparin Sodium (Porcine) 5,000 unit 11/29/18 12:25 Heparin IV ANNI PRN hemodialysis Heparin Sodium (Porcine) 2,000 unit 11/29/18 12:25 Heparin 10,000 Units/10 Ml IV ANNI PRN hemodialysis Heparin Sodium (Porcine) 5,000 unit 12/05/18 10:00 Heparin SUB-Q Q12HR JUAQUIN Hydromorphone HCl 0.5 mg 11/29/18 11:39 12/04/18 16:38 Dilaudid IV 0.5 mg Q3H PRN Administration Pain , Severe (7-10) Sodium Chloride 100 mls @ 999 mls/hr 11/29/18 12:25 Nacl 0.9% IV ANNI PRN Hypotension Cefepime HCl 1 gm in 100 mls @ 200 mls/hr 11/30/18 02:00 12/05/18 02:16 Maxipime/Ns 1 Gm/100 Ml IV 200 mls/hr Q24H JUAQUIN Administration Protocol Metronidazole 500 mg in 100 mls @ 100 mls/hr 12/02/18 22:00 12/05/18 06:26 Flagyl 500 Mg/100 Ml IV 100 mls/hr Q8HR JUAQUIN Administration Protocol Insulin Glargine 10 units 11/29/18 11:52 Lantus SUB-Q QHS PRN HYPERGLYCEMIC Insulin Human Lispro 0 unit 12/01/18 16:30 12/04/18 22:18 Humalog SUB-Q 3 unit ACHS JUAQUIN Administration Protocol Levothyroxine Sodium 50 mcg 11/29/18 12:00 12/04/18 09:48 Synthroid PO Not Given DAILY JUAQUIN Metoclopramide HCl 10 mg 11/29/18 11:39 12/04/18 23:37 Reglan IV 10 mg Q6H PRN Administration Nausea And Vomiting Multivit/Ca Carb/B Cmplx/FA/Prenat 1 cap 11/29/18 14:00 12/04/18 09:48 Renal Caps PO Not Given QDAY JUAQUIN Ondansetron HCl 4 mg 11/29/18 11:39 Zofran IV Q8H PRN Nausea And Vomiting Oxycodone/Acetaminophen 1 tab 11/29/18 11:34 12/03/18 03:33 Percocet 5/325 PO 1 tab Q6HR PRN Administration Pain Pantoprazole Sodium 40 mg 11/29/18 12:00 12/04/18 09:48 Protonix PO Not Given DAILY [facility] Polyethylene Glycol 17 gm 12/01/18 15:00 12/04/18 09:48 Miralax 3350 PO Not Given QDAY [facility] Pravastatin Sodium 40 mg 11/29/18 22:00 12/04/18 22:16 Pravachol PO 40 mg QHS JUAQUIN Administration Pregabalin 75 mg 11/29/18 12:00 12/04/18 22:17 Lyrica PO 75 mg BID JUAQUIN Administration Sodium Chloride 10 ml 11/29/18 12:00 12/04/18 22:17 Sodium Chloride Flush Syringe 10 Ml IV 10 ml BID JUAQUIN Administration Sodium Chloride 10 ml 11/29/18 11:39 Sodium Chloride Flush Syringe 10 Ml IV PRN PRN LINE FLUSH
[2018-12-05 08:21] LABS: Calcium 8.3 mg/dL (8.4-10.2)
[2018-12-05] MEDS: Renal Caps PO SCH (10:05)
[2018-12-05] MEDS: PHOSLO PO SCH ×3 (10:05→21:48)
[2018-12-05] MEDS: SODIUM CHLORIDE FLUSH SYRINGE 10 ML IV SCH ×2 (10:05→23:00)
[2018-12-05] MEDS: MIRALAX 3350 PO SCH (10:05)
[2018-12-05] MEDS: COLACE PO SCH ×3 (10:06→23:11)
[2018-12-05] MEDS: SYNTHROID PO SCH (10:06)
[2018-12-05] MEDS: LYRICA PO SCH ×3 (10:06→23:11)
[2018-12-05] MEDS: PROTONIX PO SCH (10:06)
[2018-12-05] MEDS: NORVASC PO SCH (10:06)
[2018-12-05] MEDS: HEPARIN SUB-Q SCH ×3 (10:07→23:12)
[2018-12-05] MEDS: HumaLOG SUB-Q SCH ×4 (10:07→23:00)
--- NOTE | 2018-12-05 10:28 | Progress Note ---
Assessment and Plan Cultures: 11/29/2018 Blood: no growth to date 12/04/2018 Wound: in progress A/P: 78-year-old female a past medical history of blindness, ESRD on HD, Hypertension, CVA, CHF, IDDM, COPD, GILBERTO on bipap, hypthyroidism, s/p amputation of gangrenous, infected right 3rd toe amputation of right third toe on 11/26/[address] Munoz, Findings post-op were consistent with osteomyelitis of proximal phalanx. Surgical cultures grew Beta Hemolytic strep group B. Patient was sent home on Doxycycline and Levaquin PO. Now admitted with: 1. Leukocytosis on admission: Resolved. unclear etiology, likely infected right 3rd toe amputation site. S/p amputation 2 weeks ago.. No fever. Chest xray shows no consolidation. CRP 6.4, ESR 52. 2 . Amputation Site Infection: s/p amputation of right 3rd toe on 11/26/18 . At that time surgical cultures grew Beta Hemolytic Strep group B.. On admission, wound care nurse noted 3rd toe amputation site with moderate amount of serosan guineous drainage, measuring 4x2x4, Wound culture ordered but not collected.. Debridement not recommended at this time- Ortho following - Foot xray shows adjacent soft tissue irregularity which could be postoperative in nature.. No acute bony destructive changes are observed. . Skeletal structures are osteopenic. -MRI shows no bone marrow edema to suggest osteomylitis. 3. ESRD on HD: left arm AVF. Antibiotics renally dosed. Nephrology following. 4. Type 2 Diabetes: uncontrolled 5. Acute Encephalopathy: metabolic? Improved Plan: -f/u blood culture -f/u wound culture -Discontinue Cefepime -Start Cefazolin 1 gm IV Q PM -Switch Flagyl 500mg po every 8 hours -Anticipate discharge on Cefazolin 2 gms IV Saturday, 2gms IV and 3gms IV Saturday, post HD. for total 3 weeks ending 12-21-18 and Flagyl 500mg PO every 8 hours for total 2 weeks ending 12-16-18 -order placed with case management -wound care clinic followup outpatient --f/u ID clinic in 2 weeks -ID is signing off [facility] M: [phone] O:[phone] Subjective Date of service: 12/05/18 Interval history: Patient seen and examined. Laying in bed, sleepy. Denies pain or SOB. no fevers. Daughters at bedside. Objective - Exam Narrative Exam: Constitutional: Asleep, Easily arousable. No acute distress Head, Ears, Nose: Normocephalic, atraumatic. External ears, nose normal Eyes: Conjunctivae/corneas clear. No icterus. No ptosis. Neck: Supple, no meningeal signs Oral: dentition poor, no thrush Cardiovascular: S1, S2 normal. Respiratory: Good air entry, clear to auscultation bilaterally GI: Soft, non-tender; bowel sounds normal. No peritoneal signs Musculoskeletal: s/p 3rd toe amputation wrapped with dressing, D/I Skin: No rash or abscess. Hem/Lymphatic: No palpable cervical or supraclavicular nodes. No lymphangitis Psych: Mood ok. Affect normal Neurological: Asleep, arousable oriented. - Constitutional Vitals: Vital Signs Temp Pulse Resp BP Pulse Ox 99.1 F 69 20 136/53 99 12/05/18 08:10 12/05/18 10:06 12/05/18 08:10 12/05/18 10:06 12/05/18 08:10 Temperature -Last 24 Hours Temperature 99.1 F Temperature 98.3 F Temperature 98.6 F Temperature 97.9 F Temperature 97.6 F - Labs CBC & Chem 7: 12/05/18 15:00 12/05/18 07:33 Labs: Abnormal lab results 12/04/18 12/04/18 12/04/18 Range/Units 14:08 17:23 21:56 Sodium (137-145) mmol/L Carbon Dioxide (22-30) mmol/L BUN (7-17) mg/dL Creatinine (0.7-1.2) mg/dL POC Glucose 187 H 162 H 172 H (70-105) Calcium (8.4-10.2) mg/dL 12/05/18 Range/Units 07:33 Sodium 133 L (137-145) mmol/L Carbon Dioxide 21 L D (22-30) mmol/L BUN 24 H (7-17) mg/dL Creatinine 4.3 H (0.7-1.2) mg/dL POC Glucose (70-105) Calcium 8.3 L (8.4-10.2) mg/dL
[2018-12-05 15:15] LABS: Basophils # (Auto) 0.1 K/mm3 (0.0-0.1); Basophils % (Auto) 0.9 % (0.0-1.8); Eosinophils # (Auto) 0.4 K/mm3 (0.0-0.4); Eosinophils % (Auto) 4.3 % (0.0-4.3); Hematocrit 26.8 % (30.3-42.9); Hemoglobin 8.5 gm/dl (10.1-14.3); Lymphocytes # (Auto) 0.8 K/mm3 (1.2-5.4); Lymphocytes % (Auto) 8.6 % (13.4-35.0); Mean Corpuscular HGB Conc 32 % (30-34); Mean Corpuscular Volume 75 fl (79-97); Monocytes # (Auto) 0.9 K/mm3 (0.0-0.8); Monocytes % (Auto) 9.4 % (0.0-7.3); Platelet Count 209 K/mm3 (140-440); Red Blood Count 3.57 M/mm3 (3.65-5.03); Red Cell Distribution Width 17.1 % (13.2-15.2)
[2018-12-05] MEDS: FLAGYL PO SCH ×2 (17:40→21:49)
[2018-12-05] MEDS: ANCEF/NS 1 GM/50 ML 1 GM/50 ML BAG IV SCH (17:40)
--- NOTE | 2018-12-05 18:11 | Progress Note ---
Assessment and Plan Acute metabolic encephalopathy, back to baseline Right foot cellulitis - The necrosis around the 3rd toe amputation site may need debridement, consulted Ortho because of the bone exposure but recommended local wound care. consulted ID for antibiotic management. S/p MRI of the right foot - showed no sign of osteomylitis. cont iv abx per ID. wait for wound cx result for final abx recommendation Leukocytosis -improved GILBERTO: consulted Respiratory, cont on bipap at bedtime Atelectasis of lung: nebs and incentive spirometry ESRD on HD: Nephrology following IDDM: continue insulin, added SSI Hypothyroidism: continue synthroid Constipation, cont stool softner DVT px with heparin Subjective Date of service: 12/05/18 Principal diagnosis: Gangrene rt middle toe Interval history: Doing well Objective - Constitutional Vitals: Vital Signs - 12hr 12/05/18 12/05/18 12/05/18 08:10 10:00 10:06 Temperature 99.1 F Pulse Rate 69 69 Respiratory 20 Rate Blood Pressure 136/53 136/53 O2 Sat by Pulse 99 98 Oximetry 12/05/18 13:32 Temperature 98.0 F Pulse Rate 67 Respiratory 20 Rate Blood Pressure 125/54 O2 Sat by Pulse 100 Oximetry General appearance: Present: no acute distress, well-nourished - EENT Eyes: PERRL, EOM intact ENT: hearing intact, clear oral mucosa Ears: bilateral: normal - Neck Neck: supple, normal ROM - Respiratory Respiratory effort: normal Respiratory: bilateral: CTA - Breasts Breasts: normal - Cardiovascular Rhythm: regular Heart Sounds: Present: S1 & S2. Absent: gallop, rub Extremities: pulses intact, No edema, normal color, Full ROM Extremity abnormal: pulses diminished, other (rt foot in dressing) - Gastrointestinal General gastrointestinal: Present: soft, non-tender, non-distended, normal bowel sounds - Genitourinary Female genitourinary: normal - Integumentary Integumentary: clear, warm, dry - Musculoskeletal Musculoskeletal: 1, strength equal bilaterally - Neurologic Neurologic: moves all extremities - Psychiatric Psychiatric: memory intact, appropriate mood/affect, intact judgment & insight - Labs CBC & Chem 7: 12/05/18 15:00 12/05/18 07:33 Labs: Abnormal lab results 12/04/18 12/05/18 12/05/18 Range/Units 21:56 07:33 11:45 RBC (3.65-5.03) M/mm3 Hgb (10.1-14.3) gm/dl Hct (30.3-42.9) % MCV (79-97) fl MCH (28-32) pg RDW (13.2-15.2) % Lymph % (Auto) (13.4-35.0) % Beaver % (Auto) (0.0-7.3) % Lymph # (1.2-5.4) K/mm3 [place] # (0.0-0.8) K/mm3 Seg Neutrophils % (40.0-70.0) % Sodium 133 L (137-145) mmol/L Carbon Dioxide 21 L D (22-30) mmol/L BUN 24 H (7-17) mg/dL Creatinine 4.3 H (0.7-1.2) mg/dL POC Glucose 172 H 200 H (70-105) Calcium 8.3 L (8.4-10.2) mg/dL 12/05/18 12/05/18 Range/Units 15:00 17:22 RBC 3.57 L (3.65-5.03) M/mm3 Hgb 8.5 L (10.1-14.3) gm/dl Hct 26.8 L (30.3-42.9) % MCV 75 L (79-97) fl MCH 24 L (28-32) pg RDW 17.1 H (13.2-15.2) % Lymph % (Auto) 8.6 L (13.4-35.0) % Be[place] % (Auto) 9.4 H (0.0-7.3) % Lymph # 0.8 L (1.2-5.4) K/mm3 Beaver # 0.9 H (0.0-0.8) K/mm3 Seg Neutrophils % 76.8 H (40.0-70.0) % Sodium (137-145) mmol/L Carbon Dioxide (22-30) mmol/L BUN (7-17) mg/dL Creatinine (0.7-1.2) mg/dL POC Glucose 215 H (70-105) Calcium (8.4-10.2) mg/dL
[2018-12-05] MEDS: PRAVACHOL PO SCH ×2 (21:49→23:11)
[2018-12-06] MEDS: FLAGYL PO SCH ×4 (01:36→23:29)
--- NOTE | 2018-12-06 07:39 | Progress Note ---
Assessment and Plan 1. ESRD: Continue hemodialysis three times a week, TTS schedule. 2. Right foot amputation site infection: No e/o osteomyelitis. Followed by ID. 3. Acute metabolic encephalopathy: Improved. 4. Anemia: Epogen with HD. 5. GILBERTO: CPAP. 6. DM type 2. 7. HTN. Subjective Date of service: 12/06/18 Interval history: Patient was seen and examined at the bedside. No new complaint. Objective - Vital Signs Vital signs: Vital Signs - 12hr 12/05/18 12/06/18 19:41 02:14 Temperature 98.3 F 98.3 F Pulse Rate 61 62 Respiratory 20 20 Rate Blood Pressure 132/50 129/50 O2 Sat by Pulse 100 92 Oximetry - General Appearance General appearance: well-developed, appears stated age, other (not in distress) EENT: ATNC Neck: supple Respiratory: Present: Clear to Ascultation Cardiology: regular, S1S2, no murmurs Gastrointestinal: normoactive bowel sounds, no tenderness, no distended Integumentary: no rash, warm and dry Neurologic: no asterixis, other (able to move all 4 extremities) Musculoskeletal: other (no edema, right foot dressing, left arm AVF) Psychiatric: cooperative - Lab 12/05/18 15:00 12/05/18 07:33 Most recent lab results Calcium 8.3 mg/dL (8.4-10.2) L 12/05/18 07:33 Phosphorus 4.30 mg/dL (2.5-4.5) 11/30/18 07:05 Magnesium 1.80 mg/dL (1.7-2.3) 11/30/18 07:05 Medications & Allergies - Medications Allergies/Adverse Reactions: Allergies Iodinated Contrast- Oral and IV Dye Allergy (Verified 11/25/18 15:48) Hives, Rash Penicillins Allergy (Verified 11/25/18 15:48) Hives Home Medications: Home Medications Medication Instructions Recorded Confirmed Last Taken Type Ezetimibe [Zetia] 10 mg PO HS 05/11/14 12/02/18 11/25/18 20:00 History Levothyroxine [Synthroid] 50 mcg PO DAILY 05/11/14 11/29/18 11/26/18 05:00 History B Complex 11/Folic/C/Biot/Zinc 1 each PO DAILY 01/01/1512/02/18 11/25/18 20:00 History [Dialyvite with Zinc Tablet] Pravastatin [Pravachol] 40 mg PO QHS 09/06/15 11/29/18 11/25/18 20:00 History Calcium Acetate [Phoslo] 667 mg PO TID 06/25/17 12/02/18 11/28/18 History Meloxicam [Mobic] 7.5 mg PO DAILY 06/25/17 12/02/18 11/28/18 History Pregabalin [Lyrica] 75 mg PO BID 06/25/17 11/29/18 11/25/18 20:00 History Lispro Insulin [Humalog] 0 unit SQ AC 11/25/18 12/02/18 Unknown History Oxycodone HCl [Roxicodone] 5 mg PO DAILY PRN 11/25/18 12/02/18 11/25/18 10:00 History Pantoprazole Sodium 40 mg PO DAILY 11/25/18 11/29/18 11/26/18 05:00 History amLODIPine [Norvasc] 2.5 mg PO DAILY 11/25/18 12/02/18 11/28/18 History 2.5 levoFLOXacin [Levaquin TAB] 250 mg PO Q48HR 11/25/18 12/02/18 11/28/18 History 250 Doxycycline [Vibramycin CAP] 100 mg PO Q12HR 14 Days #28 capsule 11/26/18 12/02/18 11/28/18 Rx oxyCODONE /ACETAMINOPHEN [Percocet 1 tab PO Q6HR PRN #30 tablet 11/26/18 12/02/18 11/28/18 Rx 5/325] Omeprazole 20 mg PO DAILY 11/29/18 12/02/18 Unknown History levoFLOXacin [Levaquin TAB] 500 mg PO Q48HR 11/29/18 12/02/18 11/28/18 History 500 Gas-X tab PO BID 12/06/18 11/29/18 10:00 History Active Medications: Generic Name Dose Route Start Last Admin Trade Name Freq PRN Reason Stop Dose Admin Acetaminophen 650 mg 11/29/18 11:39 Tylenol PO Q4H PRN Pain MILD(1-3)/Fever >100.5/DALE Amlodipine Besylate 2.5 mg 11/29/18 12:00 12/05/18 10:06 Norvasc PO 2.5 mg DAILY JUAQUIN Administration Bisacodyl 10 mg 12/04/18 10:52 Dulcolax PO QDAY PRN Constipation Calcium Acetate 667 mg 11/29/18 14:00 12/05/18 21:48 Phoslo PO Not Given TID JUAQUIN Dextrose 50 ml 12/01/18 15:06 D50w (25gm) Syringe IV PRN PRN Hypoglycemia Docusate Sodium 100 mg 12/04/18 11:00 12/05/18 23:11 Colace PO 100 mg BID JUAQUIN Administration Epoetin [place]cy 10,000 unit 11/29/18 12:25 12/04/18 11:56 Procrit IV 10,000 unit ANNI PRN Administration hemodialysis Heparin Sodium (Porcine) 5,000 unit 11/29/18 12:25 Heparin IV ANNI PRN hemodialysis Heparin Sodium (Porcine) 2,000 unit 11/29/18 12:25 Heparin 10,000 Units/10 Ml IV ANNI PRN hemodialysis Heparin Sodium (Porcine) 5,000 unit 12/05/18 10:00 12/05/18 23:12 Heparin SUB-Q 5,000 unit Q12HR JUAQUIN Administration Hydromorphone HCl 0.5 mg 11/29/18 11:39 12/04/18 16:38 Dilaudid IV 0.5 mg Q3H PRN Administration Pain , Severe (7-10) Sodium Chloride 100 mls @ 999 mls/hr 11/29/18 12:25 Nacl 0.9% IV ANNI PRN Hypotension Cefazolin Sodium 1 gm in 50 mls @ 100 mls/hr 12/05/18 18:00 12/05/18 17:40 Ancef/Ns 1 Gm/50 Ml IV 100 mls/hr QPM JUAQUIN Administration Protocol Insulin Glargine 10 units 11/29/18 11:52 Lantus SUB-Q QHS PRN HYPERGLYCEMIC Insulin Human Lispro 0 unit 12/01/18 16:30 12/05/18 23:00 Humalog SUB-Q 4 unit ACHS JUAQUIN Administration Protocol Levothyroxine Sodium 50 mcg 11/29/18 12:00 12/05/18 10:06 Synthroid PO 50 mcg DAILY JUAQUIN Administration Metoclopramide HCl 10 mg 11/29/18 11:39 12/04/18 23:37 Reglan IV 10 mg Q6H PRN Administration Nausea And Vomiting Metronidazole 500 mg 12/05/18 16:00 12/06/18 01:36 Flagyl PO 500 mg Q8HR JUAQUIN Administration Protocol Multivit/Ca Carb/B Cmplx/FA/Prenat 1 cap 11/29/18 14:00 12/05/18 10:05 Renal Caps PO 1 cap QDAY JUAQUIN Administration Ondansetron HCl 4 mg 11/29/18 11:39 Zofran IV Q8H PRN Nausea And Vomiting Oxycodone/Acetaminophen 1 tab 11/29/18 11:34 12/03/18 03:33 Percocet 5/325 PO 1 tab Q6HR PRN Administration Pain Pantoprazole Sodium 40 mg 11/29/18 12:00 12/05/18 10:06 Protonix PO 40 mg DAILY JUAQUIN Administration Polyethylene Glycol 17 gm 12/01/18 15:00 12/05/18 10:05 Miralax 3350 PO 17 gm QDAY JUAQUIN Administration Pravastatin Sodium 40 mg 11/29/18 22:00 12/05/18 23:11 Pravachol PO 40 mg QHS JUAQUIN Administration Pregabalin 75 mg 11/29/18 12:00 12/05/18 23:11 Lyrica PO 75 mg BID JUAQUIN Administration Sodium Chloride 10 ml 11/29/18 12:00 12/05/18 23:00 Sodium Chloride Flush Syringe 10 Ml IV 10 ml BID JUAQUIN Administration Sodium Chloride 10 ml 11/29/18 11:39 Sodium Chloride Flush Syringe 10 Ml IV PRN PRN LINE FLUSH
[2018-12-06] MEDS: HumaLOG SUB-Q SCH ×4 (08:10→23:34)
[2018-12-06] MEDS: PHOSLO PO SCH ×3 (09:03→19:20)
[2018-12-06] MEDS: SYNTHROID PO SCH (09:03)
[2018-12-06] MEDS: Renal Caps PO SCH (09:03)
[2018-12-06] MEDS: PROTONIX PO SCH (09:03)
[2018-12-06] MEDS: COLACE PO SCH ×2 (09:03→21:30)
[2018-12-06] MEDS: HEPARIN SUB-Q SCH ×2 (09:05→21:34)
[2018-12-06] MEDS: NORVASC PO SCH (09:12)
[2018-12-06] MEDS: SODIUM CHLORIDE FLUSH SYRINGE 10 ML IV SCH ×2 (09:13→21:32)
[2018-12-06] MEDS: LYRICA PO SCH ×2 (10:05→21:31)
[2018-12-06] MEDS: PROCRIT IV PRN (12:03)
[2018-12-06] MEDS ORDERED: NACL 0.9 (PRIMING MACHINE ONLY DIALYSIS) MC ONE (12:11)
[2018-12-06] MEDS: MIRALAX 3350 PO SCH (13:44)
--- NOTE | 2018-12-06 13:47 | Progress Note ---
Assessment and Plan Acute metabolic encephalopathy, Improved Right foot cellulitis - The necrosis around the 3rd toe amputation site may need debridement, con sulted Ortho because of the bone exposure but recommended local wound care. consulted ID for antibiotic management. S/p MRI of the right foot - showed no sign of osteomylitis. cont iv abx per ID. wait for wound cx result for final abx recommendation Leukocytosis, does not meet criteria for sepsis, likely from 3rd toe amputation site infection/cellulitis: GILBERTO: consulted Respiratory, cont on bipap at bedtime Atelectasis of lung: nebs and incentive spirometry ESRD on HD: Nephrology following IDDM: continue insulin, added SSI Hypothyroidism: continue synthroid Constipation, cont stool softner DVT px with heparin Subjective Date of service: 12/06/18 Principal diagnosis: rt foot gangene and Sepsis Interval history: Doing well Objective - Constitutional Vitals: Vital Signs - 12hr 12/06/18 12/06/18 12/06/18 02:14 07:26 09:10 Temperature 98.3 F 99.6 F 99.6 F Pulse Rate 62 61 66 Respiratory 20 18 18 Rate Blood Pressure 129/50 134/55 130/62 O2 Sat by Pulse 92 99 Oximetry 12/06/18 12/06/18 12/06/18 09:12 09:20 09:30 Temperature Pulse Rate 61 69 69 Respiratory Rate Blood Pressure 134/55 137/60 128/66 O2 Sat by Pulse Oximetry 12/06/18 12/06/18 12/06/18 09:45 10:00 10:15 Temperature Pulse Rate 66 69 64 Respiratory 18 Rate Blood Pressure 126/59 128/66 125/58 O2 Sat by Pulse 99 Oximetry 12/06/18 12/06/18 12/06/18 10:30 10:31 10:45 Temperature Pulse Rate 63 62 Respiratory Rate Blood Pressure 120/54 114/58 O2 Sat by Pulse 97 Oximetry 12/06/18 12/06/18 12/06/18 11:00 11:15 11:30 Temperature Pulse Rate 62 61 62 Respiratory Rate Blood Pressure 123/58 111/51 131/60 O2 Sat by Pulse Oximetry 12/06/18 12/06/18 12/06/18 11:45 12:00 12:15 Temperature Pulse Rate 62 61 62 Respiratory Rate Blood Pressure 131/56 129/58 124/57 O2 Sat by Pulse Oximetry 12/06/18 12/06/18 12/06/18 12:30 12:45 13:02 Temperature Pulse Rate 65 62 67 Respiratory Rate Blood Pressure 127/69 139/61 152/62 O2 Sat by Pulse Oximetry 12/06/18 13:21 Temperature 98.5 F Pulse Rate 65 Respiratory 20 Rate Blood Pressure 136/58 O2 Sat by Pulse 99 Oximetry General appearance: Present: no acute distress, well-nourished - EENT Eyes: PERRL, EOM intact ENT: hearing intact, clear oral mucosa Ears: bilateral: normal - Neck Neck: supple, normal ROM - Respiratory Respiratory effort: normal Respiratory: bilateral: CTA - Breasts Breasts: normal - Cardiovascular Heart rate: 80 Rhythm: regular Heart Sounds: Present: S1 & S2. Absent: gallop, rub Extremities: pulses intact, No edema, normal color, Full ROM, abnormal (rt foot in dressing) - Gastrointestinal General gastrointestinal: Present: soft, non-tender, non-distended, normal bowel sounds Rectal Exam: deferred - Genitourinary Female genitourinary: deferred, normal - Integumentary Integumentary: clear, warm, dry - Musculoskeletal Musculoskeletal: 1, strength equal bilaterally - Neurologic Neurologic: moves all extremities - Psychiatric Psychiatric: memory intact, appropriate mood/affect, intact judgment & insight - Labs CBC & Chem 7: 12/05/18 15:00 12/05/18 07:33 Labs: Abnormal lab results 12/05/18 12/05/18 12/05/18 Range/Units 15:00 17:22 22:31 RBC 3.57 L (3.65-5.03) M/mm3 Hgb 8.5 L (10.1-14.3) gm/dl Hct 26.8 L (30.3-42.9) % MCV 75 L (79-97) fl MCH 24 L (28-32) pg RDW 17.1 H (13.2-15.2) % Lymph % (Auto) 8.6 L (13.4-35.0) % Nance % (Auto) 9.4 H (0.0-7.3) % Lymph # 0.8 L (1.2-5.4) K/mm3 Nance # 0.9 H (0.0-0.8) K/mm3 Seg Neutrophils % 76.8 H (40.0-70.0) % POC Glucose 215 H 206 H (70-105) 12/06/18 Range/Units 13:37 RBC (3.65-5.03) M/mm3 Hgb (10.1-14.3) gm/dl Hct (30.3-42.9) % MCV (79-97) fl MCH (28-32) pg RDW (13.2-15.2) % Lymph % (Auto) (13.4-35.0) % [place] % (Auto) (0.0-7.3) % Lymph # (1.2-5.4) K/mm3 Nance # (0.0-0.8) K/mm3 Seg Neutrophils % (40.0-70.0) % POC Glucose 165 H (70-105)
[2018-12-06] MEDS: TYLENOL PO PRN ×2 (15:25→19:27)
[2018-12-06] MEDS: ANCEF/NS 1 GM/50 ML 1 GM/50 ML BAG IV SCH (17:10)
[2018-12-06] MEDS: PRAVACHOL PO SCH (21:31)
[2018-12-07] MEDS: PHOSLO PO SCH ×2 (08:25→13:35)
[2018-12-07] MEDS: HumaLOG SUB-Q SCH ×2 (08:25→12:25)
[2018-12-07] MEDS: Renal Caps PO SCH (09:10)
[2018-12-07] MEDS: PROTONIX PO SCH (09:10)
[2018-12-07] MEDS: SYNTHROID PO SCH (09:10)
[2018-12-07] MEDS: COLACE PO SCH (09:10)
[2018-12-07] MEDS: NORVASC PO SCH (09:10)
[2018-12-07] MEDS: HEPARIN SUB-Q SCH (09:11)
[2018-12-07] MEDS: MIRALAX 3350 PO SCH (09:12)
[2018-12-07] MEDS: TYLENOL PO PRN (09:14)
[2018-12-07] MEDS: SODIUM CHLORIDE FLUSH SYRINGE 10 ML IV SCH (09:15)
[2018-12-07] MEDS: LYRICA PO SCH (09:15)
--- NOTE | 2018-12-07 10:29 | Progress Note ---
Assessment and Plan 1. ESRD: Continue hemodialysis three times a week, TTS schedule. 2. Right foot amputation site infection: No e/o osteomyelitis. Continue Abx. 3. Acute metabolic encephalopathy: Improved. 4. Anemia: Epogen with HD. 5. GILBERTO: CPAP. 6. DM type 2. 7. HTN. D/w her daughter at the bedside. Subjective Date of service: 12/07/18 Interval history: Patient was seen and examined at the bedside. No new complaint. Objective - Vital Signs Vital signs: Vital Signs - 12hr 12/06/18 12/07/18 12/07/18 22:33 02:00 02:59 Temperature 98.4 F 98.4 F Pulse Rate 54 L 54 L Respiratory 20 20 Rate Blood Pressure 131/58 Blood Pressure 131/58 [Left] O2 Sat by Pulse 100 97 97 Oximetry 12/07/18 12/07/18 12/07/18 07:22 08:30 08:37 Temperature 97.9 F Pulse Rate 62 Respiratory 20 20 Rate Blood Pressure 155/59 Blood Pressure [Left] O2 Sat by Pulse 99 99 99 Oximetry 12/07/18 12/07/18 09:10 09:14 Temperature Pulse Rate 62 Respiratory 18 Rate Blood Pressure 155/59 Blood Pressure [Left] O2 Sat by Pulse Oximetry - General Appearance General appearance: well-developed, appears stated age, other (not in distress) EENT: ATNC Neck: supple Respiratory: Present: Clear to Ascultation Cardiology: regular, S1S2, no murmurs Gastrointestinal: normoactive bowel sounds, no tenderness, no distended Integumentary: ulcer (right foot dressing) Neurologic: no asterixis, other (able to move extremities) Musculoskeletal: other (left arm AVF, no edema) Psychiatric: cooperative - Lab 12/05/18 15:00 12/05/18 07:33 Most recent lab results Calcium 8.3 mg/dL (8.4-10.2) L 12/05/18 07:33 Phosphorus 4.30 mg/dL (2.5-4.5) 11/30/18 07:05 Magnesium 1.80 mg/dL (1.7-2.3) 11/30/18 07:05 Medications & Allergies - Medications Allergies/Adverse Reactions: Allergies Iodinated Contrast- Oral and IV Dye Allergy (Verified 11/25/18 15:48) Hives, Rash Penicillins Allergy (Verified 11/25/18 15:48) Hives Home Medications: Home Medications Medication Instructions Recorded Confirmed Last Taken Type Ezetimibe [Zetia] 10 mg PO HS 05/11/14 12/02/18 11/25/18 20:00 History Levothyroxine [Synthroid] 50 mcg PO DAILY 05/11/14 11/29/18 11/26/18 05:00 History B Complex 11/Folic/C/Biot/Zinc 1 each PO DAILY 09/06/15 12/02/18 11/25/18 20:00 History [Dialyvite with Zinc Tablet] Pravastatin [Pravachol] 40 mg PO QHS 09/06/15 11/29/18 11/25/18 20:00 History Calcium Acetate [Phoslo] 667 mg PO TID 06/25/17 12/02/18 11/28/18 History Meloxicam [Mobic] 7.5 mg PO DAILY 06/25/17 12/02/18 11/28/18 History Pregabalin [Lyrica] 75 mg PO BID 06/25/17 11/29/18 11/25/18 20:00 History Lispro Insulin [Humalog] 0 unit SQ AC 11/25/18 12/02/18 Unknown History Oxycodone HCl [Roxicodone] 5 mg PO DAILY PRN 11/25/18 12/02/18 11/25/18 10:00 History Pantoprazole Sodium 40 mg PO DAILY 11/25/18 11/29/18 11/26/18 05:00 History amLODIPine [Norvasc] 2.5 mg PO DAILY 11/25/18 12/02/18 11/28/18 History 2.5 levoFLOXacin [Levaquin TAB] 250 mg PO Q48HR 11/25/18 12/02/18 11/28/18 History 250 Doxycycline [Vibramycin CAP] 100 mg PO Q12HR 14 Days #28 capsule 11/26/18 12/02/18 11/28/18 Rx oxyCODONE /ACETAMINOPHEN [Percocet 1 tab PO Q6HR PRN #30 tablet 11/26/18 12/02/18 11/28/18 Rx 5/325] Omeprazole 20 mg PO DAILY 11/29/18 12/02/18 Unknown History levoFLOXacin [Levaquin TAB] 500 mg PO Q48HR 11/29/18 12/02/18 11/28/18 History 500 Gas-X tab PO BID 12/06/18 11/29/18 10:00 History Active Medications: Generic Name Dose Route Start Last Admin Trade Name Freq PRN Reason Stop Dose Admin Acetaminophen 650 mg 11/29/18 11:39 12/07/18 09:14 Tylenol PO 650 mg Q4H PRN Administration Pain MILD(1-3)/Fever >100.5/DALE Amlodipine Besylate 2.5 mg 11/29/18 12:00 12/07/18 09:10 Norvasc PO 2.5 mg DAILY JUAQUIN Administration Bisacodyl 10 mg 12/04/18 10:52 Dulcolax PO QDAY PRN Constipation Calcium Acetate 667 mg 11/29/18 14:00 12/07/18 08:25 Phoslo PO 667 mg TID JUAQUIN Administration Dextrose 50 ml 12/01/18 15:06 D50w (25gm) Syringe IV PRN PRN Hypoglycemia Docusate Sodium 100 mg 12/04/18 11:00 12/07/18 09:10 Colace PO 100 mg BID JUAQUIN Administration Epoetin [place] 10,000 unit 11/29/18 12:25 12/06/18 12:03 Procrit IV 10,000 unit ANNI PRN Administration hemodialysis Heparin Sodium (Porcine) 5,000 unit 11/29/18 12:25 Heparin IV ANNI PRN hemodialysis Heparin Sodium (Porcine) 2,000 unit 11/29/18 12:25 Heparin 10,000 Units/10 Ml IV ANNI PRN hemodialysis Heparin Sodium (Porcine) 5,000 unit 12/05/18 10:00 12/07/18 09:11 Heparin SUB-Q 5,000 unit Q12HR JUAQUIN Administration Hydromorphone HCl 0.5 mg 11/29/18 11:39 12/04/18 16:38 Dilaudid IV 0.5 mg Q3H PRN Administration Pain , Severe (7-10) Sodium Chloride 100 mls @ 999 mls/hr 11/29/18 12:25 Nacl 0.9% IV ANNI PRN Hypotension Cefazolin Sodium 1 gm in 50 mls @ 100 mls/hr 12/05/18 18:00 12/06/18 17:10 Ancef/Ns 1 Gm/50 Ml IV 100 mls/hr QPM JUAQUIN Administration Protocol Insulin Glargine 10 units 11/29/18 11:52 Lantus SUB-Q QHS PRN HYPERGLYCEMIC Insulin Human Lispro 0 unit 12/01/18 16:30 12/07/18 08:25 Humalog SUB-Q Not Given ACHS [facility] Protocol Levothyroxine Sodium 50 mcg 11/29/18 12:00 12/07/18 09:10 Synthroid PO 50 mcg DAILY JUAQUIN Administration Metoclopramide HCl 10 mg 11/29/18 11:39 12/04/18 23:37 Reglan IV 10 mg Q6H PRN Administration Nausea And Vomiting Metronidazole 500 mg 12/05/18 16:00 12/06/18 23:29 Flagyl PO Not Given Q8HR [facility] Protocol Multivit/Ca Carb/B Cmplx/FA/Prenat 1 cap 11/29/18 14:00 12/07/18 09:10 Renal Caps PO 1 cap QDAY JUAQUIN Administration Ondansetron HCl 4 mg 11/29/18 11:39 12/07/18 06:04 Zofran IV 4 mg Q8H PRN Administration Nausea And Vomiting Oxycodone/Acetaminophen 1 tab 11/29/18 11:34 12/03/18 03:33 Percocet 5/325 PO 1 tab Q6HR PRN Administration Pain Pantoprazole Sodium 40 mg 11/29/18 12:00 12/07/18 09:10 Protonix PO 40 mg DAILY JUAQUIN Administration Polyethylene Glycol 17 gm 12/01/18 15:00 12/07/18 09:12 Miralax 3350 PO 17 gm QDAY JUAQUIN Administration Pravastatin Sodium 40 mg 11/29/18 22:00 12/06/18 21:31 Pravachol PO 40 mg QHS JUAQUIN Administration Pregabalin 75 mg 11/29/18 12:00 12/07/18 09:15 Lyrica PO Not Given BID JUAQUIN Sodium Chloride 10 ml 11/29/18 12:00 12/07/18 09:15 Sodium Chloride Flush Syringe 10 Ml IV 10 ml BID JUAQUIN Administration Sodium Chloride 10 ml 11/29/18 11:39 12/06/18 17:11 Sodium Chloride Flush Syringe 10 Ml IV 10 ml PRN PRN Administration LINE FLUSH
--- NOTE | 2018-12-07 11:42 | Progress Note ---
Assessment and Plan Cultures: 11/29/2018 Blood: no growth to date 12/04/2018 Wound: in progress A/P: 78-year-old female a past medical history of blindness, ESRD on HD, Hypertension, CVA, CHF, IDDM, COPD, GILBERTO on bipap, hypthyroidism, s/p amputation of gangrenous, infected right 3rd toe amputation of right third toe on 11/26/[address] Munoz, Findings post-op were consistent with osteomyelitis of proximal phalanx. Surgical cultures grew Beta Hemolytic strep group B. Patient was sent home on Doxycycline and Levaquin PO. Now admitted with: 1. Leukocytosis on admission: Resolved. unclear etiology, likely infected right 3rd toe amputation site. S/p amputation 2 weeks ago.. No fever. Chest xray shows no consolidation. CRP 6.4, ESR 52. 2 . Amputation Site Infection: s/p amputation of right 3rd toe on 11/26/18 . At that time surgical cultures grew Beta Hemolytic Strep group B.. On admission, wound care nurse noted 3rd toe amputation site with moderate amount of serosan guineous drainage, measuring 4x2x4, Wound culture ordered but not collected.. Debridement not recommended at this time- Ortho following - Foot xray shows adjacent soft tissue irregularity which could be postoperative in nature.. No acute bony destructive changes are observed. . Skeletal structures are osteopenic. -MRI shows no bone marrow edema to suggest osteomylitis. 3. ESRD on HD: left arm AVF. Antibiotics renally dosed. Nephrology following. 4. Type 2 Diabetes: uncontrolled 5. Acute Encephalopathy: metabolic? Improved Plan: -Continue Cefazolin 1 gm IV Q PM while inpatient -Switch Flagyl 500mg po every 8 hours Per Nephrology, dialysis clinic does not have Cefazolin on site, hence will anticipate discharge on Keflex 250mg PO QID for 3 weeks ending 12-29-18 and Flagyl 500mg every 8 hours for two weeks ending 12-16-18. - revised order placed with case management -wound care clinic followup outpatient --f/u ID clinic in 2 weeks [facility] M: [phone] O:[phone] Subjective Date of service: 12/07/18 Objective - Constitutional Vitals: Vital Signs Temp Pulse Resp BP Pulse Ox 97.9 F 62 18 155/59 99 04/07/19 07:22 12/07/18 09:10 12/07/18 09:14 12/07/18 09:10 12/07/18 08:37 Temperature -Last 24 Hours Temperature 97.9 F Temperature 98.4 F Temperature 98.4 F Temperature 99.6 F Temperature 98.6 F Temperature 99.6 F Temperature 98.5 F Temperature 98.5 F - Labs CBC & Chem 7: 12/05/18 15:00 12/05/18 07:33 Labs: Abnormal lab results 12/06/18 12/06/18 12/06/18 Range/Units 13:37 16:03 22:09 POC Glucose 165 H 146 H 320 H (70-105) 12/07/18 Range/Units 07:24 POC Glucose 69 L (70-105)
[2018-12-07] MEDS: FLAGYL PO SCH (13:35)
[2018-12-07 13:41] VITALS: BP 140/53
--- NOTE | 2018-12-07 14:49 | Discharge Summary ---
Providers - Providers Date of Admission: 11/29/18 11:20 Date of discharge: 12/07/18 Attending physician: MARINA BLANK 11/29/18 Consult to Case Management [CONS] Routine Services Needed at Discharge: Home Health Services Notified:: case management 11/29/18 11:25 Consult to Physician [CONS] Urgent Comment: Consulting Provider: CHUNG YOU Physician Instructions: Reason For Exam: ESRD needs D Consult to Wound/ET Nurse [CONS] Urgent Reason For Exam: wound eval 11/29/18 11:26 Consult to Physician [CONS] Urgent Comment: Consulting Provider: OMER SANDOVAL Physician Instructions: Reason For Exam: wound management 12/01/18 15:11 Consult to Physician [CONS] Routine Comment: Consulting Provider: MARIA D BARNETT Physician Instructions: Reason For Exam: right 3rd toe amputation infection,abx management 12/01/18 15:36 Consult to Physician [CONS] Routine Comment: Consulting Provider: TERRY MARTINEZ Physician Instructions: Reason For Exam: 3rd toe infection with bone exposure 12/03/18 17:45 Physical Therapy Evaluation and Treat [CONS] Routine Comment: Reason For Exam: Immobility after amputation of right 3rd toe 12/05/18 10:22 Consult to Case Management [CONS] Urgent Services Needed at Discharge: Other Notified:: no Additional Physician Instructions: [facility] M [phone] O [phone] F [phone] OUTPATIENT PARENTERAL ANTIBIOTIC THERAPY ORDERS Diagnoses: Amputation site infection- s/p amputation of right 3rd toe Antimicrobial administration: Per Nephrology, dialysis clinic does not have Cefazolin on site, hence will anticipate discharge on Keflex 250mg PO QID for 3 weeks ending 12-29-18 and Flagyl 500mg every 8 hours for two weeks ending 12-16-18. Lines: Lab monitoring: CBC, ALT, AST, CRP, ESR once a week preferly on Saturday morning. Please fax results to [phone] and call [phone] for critical lab results. Lachelle Proctor NP/MD Adelina Date: 12/05/18 Primary care physician: MOLD FILLER Hospitalization Condition: Stable Hospital course: Acute metabolic encephalopathy, Improved Right foot cellulitis S/p amputation of Rt 3 rd toe 11/26/18 Cont Keflex 250 mg po qid till Flagyl 500 mg po q8 ending 12/16/18 Leukocytosis, does not meet criteria for sepsis, likely from 3rd toe amputation site infection/cellulitis: GILBERTO: consulted Respiratory, cont on bipap at bedtime Atelectasis of lung: nebs and incentive spirometry ESRD on HD: Nephrology following IDDM: continue insulin, added SSI Hypothyroidism: continue synthroid Constipation, cont stool softner -Switch Flagyl 500mg po every 8 hours Per Nephrology, dialysis clinic does not have Cefazolin on site, hence will anticipate discharge on Keflex 250mg PO QID for 3 weeks ending 12-29-18 and Flagyl 500mg every 8 hours for two weeks ending 12-16-18. - revised order placed with case management -wound care clinic followup outpatient --f/u ID clinic in 2 weeks Disposition: DC-01 TO HOME OR SELFCARE Core Measure Documentation - Palliative Care Palliative Care/ Comfort Measures: Not Applicable - Core Measures Any of the following diagnoses?: none Exam - Constitutional Vitals: Temp Pulse Resp BP Pulse Ox 97.8 F 64 20 140/53 97 12/07/18 13:39 12/07/18 13:39 12/07/18 13:39 12/07/18 13:39 12/07/18 13:39 General appearance: Present: no acute distress, well-nourished - EENT Eyes: Present: PERRL ENT: hearing intact, clear oral mucosa - Neck Neck: Present: supple, normal ROM - Respiratory Respiratory effort: normal Respiratory: bilateral: CTA - Cardiovascular Heart Sounds: Present: S1 & S2. Absent: rub, click - Extremities Extremities: pulses symmetrical, No edema Extremity abnormal: pulses diminished, other (rt foot in dressing) Peripheral Pulses: within normal limits - Abdominal General gastrointestinal: Present: soft, non-tender, non-distended, normal bowel sounds Female genitourinary: Present: normal - Integumentary Integumentary: Present: clear, warm, dry - Musculoskeletal Musculoskeletal: gait normal, strength equal bilaterally - Psychiatric Psychiatric: appropriate mood/affect, intact judgment & insight - Neurologic Neurologic: CNII-XII intact, moves all extremities Plan Activity: no restrictions Diet: renal Follow up with: PRIMARY MD ELISHA [Primary Care Provider] - 3-5 Days MARIA D BARNETT MD [Staff Physician] - 7 Days SHANT BREWER DO [Staff Physician] - 7 Days
== END 2018-12-07 16:45 | disposition home or self-care (01) | DRG 564 ==
LOC: ED 09:00 → 4A 11:20 → 2B-ACE 12-03 20:23
PROVIDERS: ADMIT Internal Medicine; ATTEND Internal Medicine
PROC: 5A1D70Z Performance of Urinary Filtration, Intermittent, Less than 6 Hours Per Day (ICD-10-PCS; principal; 2018-11-29)
PROC: 4A033R1 Measurement of Arterial Saturation, Peripheral, Percutaneous Approach (ICD-10-PCS; 2018-11-29)
PROC: 5A1D70Z Performance of Urinary Filtration, Intermittent, Less than 6 Hours Per Day (ICD-10-PCS; 2018-12-02)
PROC: 5A1D70Z Performance of Urinary Filtration, Intermittent, Less than 6 Hours Per Day (ICD-10-PCS; 2018-12-04)
PROC: 5A1D70Z Performance of Urinary Filtration, Intermittent, Less than 6 Hours Per Day (ICD-10-PCS; 2018-12-06)
DX: T87.43 Infection of amputation stump, right lower extremity (principal); N18.6 End stage renal disease; G93.41 Metabolic encephalopathy; I50.43 Acute on chronic combined systolic (congestive) and diastolic (congestive) heart failure; J96.12 Chronic respiratory failure with hypercapnia; I13.2 Hypertensive heart and chronic kidney disease with heart failure and with stage 5 chronic kidney disease, or end stage renal disease; L03.115 Cellulitis of right lower limb; J98.11 Atelectasis; J44.9 Chronic obstructive pulmonary disease, unspecified; G47.33 Obstructive sleep apnea (adult) (pediatric); K59.00 Constipation, unspecified; K21.9 Gastro-esophageal reflux disease without esophagitis; H54.8 Legal blindness, as defined in USA; Y83.5 Amputation of limb(s) as the cause of abnormal reaction of the patient, or of later complication, without mention of misadventure at the time of the procedure; G89.29 Other chronic pain; E03.9 Hypothyroidism, unspecified; E11.22 Type 2 diabetes mellitus with diabetic chronic kidney disease; E11.621 Type 2 diabetes mellitus with foot ulcer; Z99.2 Dependence on renal dialysis; Z86.73 Personal history of transient ischemic attack (TIA), and cerebral infarction without residual deficits; Z82.49 Family history of ischemic heart disease and other diseases of the circulatory system; Z88.0 Allergy status to penicillin; Z91.041 Radiographic dye allergy status; Z90.49 Acquired absence of other specified parts of digestive tract; Y92.098 Other place in other non-institutional residence as the place of occurrence of the external cause
CPT/HCPCS: 36415; 70450; 71045; 73721; 80048; 80053; 80061; 80074; 80076; 80202; 82140; 82550; 82553; 82803; 82947; 82962; 83036; 83735; 83880; 84100; 84484; 85025; 85027; 85610; 85652; 85730; 86140; 87040; 87075; 87116; 88302; 88304; 88305; 88311; 93005; 93010; 94760; 96365; 96375; G0378; A9270-GY; J0690; J0692; J0885; J1170; J1644; J1815; J2185; J2405; J2704; J2765; J3370; J7030; J7050; J7120

== ENCOUNTER 2018-12-10 11:10 | Outpatient (CLI) | payer MEDICARE ==
[2018-12-10] MEDS ORDERED: XYLOCAINE 1%/ EPI 1:100,000 INFILTRATI ONE (12:10)
[2018-12-10] MEDS ORDERED: DAKIN'S FULL STRENGTH TP ONE (13:05)
== END 2018-12-10 11:11 | disposition home or self-care (01) ==
LOC: WOUND 11:10
PROVIDERS: ATTEND Surgery
DX: E11.621 Type 2 diabetes mellitus with foot ulcer (principal); L97.515 Non-pressure chronic ulcer of other part of right foot with muscle involvement without evidence of necrosis; E11.69 Type 2 diabetes mellitus with other specified complication; M86.671 Other chronic osteomyelitis, right ankle and foot; E11.22 Type 2 diabetes mellitus with diabetic chronic kidney disease; I12.0 Hypertensive chronic kidney disease with stage 5 chronic kidney disease or end stage renal disease; N18.6 End stage renal disease; E11.51 Type 2 diabetes mellitus with diabetic peripheral angiopathy without gangrene; H54.7 Unspecified visual loss; Z90.49 Acquired absence of other specified parts of digestive tract; Z90.710 Acquired absence of both cervix and uterus

== ENCOUNTER 2018-12-16 08:07 | Outpatient (CLI) | payer MEDICARE ==
[2018-12-16] MEDS ORDERED: XYLOCAINE TOPICAL 4% TP ONE (08:30)
[2018-12-16] MEDS ORDERED: SILVER NITRATE TP NR (08:35)
[2018-12-16] MEDS ORDERED: DAKIN'S FULL STRENGTH TP ONE (09:30)
== END 2018-12-16 08:08 | disposition home or self-care (01) ==
LOC: WOUND 08:07
PROVIDERS: ATTEND Surgery
DX: E11.621 Type 2 diabetes mellitus with foot ulcer (principal); L97.513 Non-pressure chronic ulcer of other part of right foot with necrosis of muscle; E11.622 Type 2 diabetes mellitus with other skin ulcer; L97.312 Non-pressure chronic ulcer of right ankle with fat layer exposed; E11.69 Type 2 diabetes mellitus with other specified complication; M86.671 Other chronic osteomyelitis, right ankle and foot; E11.51 Type 2 diabetes mellitus with diabetic peripheral angiopathy without gangrene; E11.22 Type 2 diabetes mellitus with diabetic chronic kidney disease; I12.0 Hypertensive chronic kidney disease with stage 5 chronic kidney disease or end stage renal disease; N18.6 End stage renal disease; H54.7 Unspecified visual loss; Z99.2 Dependence on renal dialysis; Z90.710 Acquired absence of both cervix and uterus; Z90.49 Acquired absence of other specified parts of digestive tract

== ENCOUNTER 2018-12-23 07:58 | Outpatient (CLI) | payer MEDICARE ==
[2018-12-23] MEDS ORDERED: XYLOCAINE TOPICAL 4% TP ONE (08:30)
== END 2018-12-23 07:59 | disposition home or self-care (01) ==
LOC: WOUND 07:58
PROVIDERS: ATTEND Surgery
DX: E11.621 Type 2 diabetes mellitus with foot ulcer (principal); L97.516 Non-pressure chronic ulcer of other part of right foot with bone involvement without evidence of necrosis; E11.622 Type 2 diabetes mellitus with other skin ulcer; L97.812 Non-pressure chronic ulcer of other part of right lower leg with fat layer exposed; E11.69 Type 2 diabetes mellitus with other specified complication; M86.671 Other chronic osteomyelitis, right ankle and foot; E11.51 Type 2 diabetes mellitus with diabetic peripheral angiopathy without gangrene; E11.22 Type 2 diabetes mellitus with diabetic chronic kidney disease; I12.0 Hypertensive chronic kidney disease with stage 5 chronic kidney disease or end stage renal disease; N18.6 End stage renal disease; H54.7 Unspecified visual loss; Z90.49 Acquired absence of other specified parts of digestive tract; Z90.710 Acquired absence of both cervix and uterus

== ENCOUNTER 2018-12-24 07:47 | Outpatient (CLI) | payer MEDICARE | END 2018-12-24 07:48 | disposition home or self-care (01) | LOC: WOUND 07:47 | PROVIDERS: ATTEND Surgery | DX: E11.621 Type 2 diabetes mellitus with foot ulcer (principal); L97.516 Non-pressure chronic ulcer of other part of right foot with bone involvement without evidence of necrosis; E11.622 Type 2 diabetes mellitus with other skin ulcer; L97.312 Non-pressure chronic ulcer of right ankle with fat layer exposed; E11.69 Type 2 diabetes mellitus with other specified complication; M86.671 Other chronic osteomyelitis, right ankle and foot; E11.51 Type 2 diabetes mellitus with diabetic peripheral angiopathy without gangrene; E11.22 Type 2 diabetes mellitus with diabetic chronic kidney disease; I12.0 Hypertensive chronic kidney disease with stage 5 chronic kidney disease or end stage renal disease; N18.6 End stage renal disease; H54.7 Unspecified visual loss; Z90.49 Acquired absence of other specified parts of digestive tract; Z90.710 Acquired absence of both cervix and uterus | CPT/HCPCS: 82962; G0277; 99183 ==

== ENCOUNTER 2018-12-25 07:46 | Outpatient (CLI) | payer MEDICARE | END 2018-12-25 07:47 | disposition home or self-care (01) | LOC: WOUND 07:46 | PROVIDERS: ATTEND Surgery | DX: E11.621 Type 2 diabetes mellitus with foot ulcer (principal); L97.516 Non-pressure chronic ulcer of other part of right foot with bone involvement without evidence of necrosis; E11.622 Type 2 diabetes mellitus with other skin ulcer; L97.312 Non-pressure chronic ulcer of right ankle with fat layer exposed; E11.69 Type 2 diabetes mellitus with other specified complication; M86.671 Other chronic osteomyelitis, right ankle and foot; E11.51 Type 2 diabetes mellitus with diabetic peripheral angiopathy without gangrene; E11.22 Type 2 diabetes mellitus with diabetic chronic kidney disease; I12.0 Hypertensive chronic kidney disease with stage 5 chronic kidney disease or end stage renal disease; N18.6 End stage renal disease; H54.7 Unspecified visual loss; Z90.49 Acquired absence of other specified parts of digestive tract; Z90.710 Acquired absence of both cervix and uterus | CPT/HCPCS: 82962; G0277; 99183 ==

== ENCOUNTER 2018-12-26 07:46 | Outpatient (CLI) | payer MEDICARE | END 2018-12-26 07:47 | disposition home or self-care (01) | LOC: WOUND 07:46 | PROVIDERS: ATTEND Surgery | DX: E11.621 Type 2 diabetes mellitus with foot ulcer (principal); L97.513 Non-pressure chronic ulcer of other part of right foot with necrosis of muscle; E11.622 Type 2 diabetes mellitus with other skin ulcer; L97.312 Non-pressure chronic ulcer of right ankle with fat layer exposed; E11.69 Type 2 diabetes mellitus with other specified complication; M86.671 Other chronic osteomyelitis, right ankle and foot; E11.51 Type 2 diabetes mellitus with diabetic peripheral angiopathy without gangrene; E11.22 Type 2 diabetes mellitus with diabetic chronic kidney disease; I12.0 Hypertensive chronic kidney disease with stage 5 chronic kidney disease or end stage renal disease; N18.6 End stage renal disease; H54.7 Unspecified visual loss; Z99.2 Dependence on renal dialysis; Z90.49 Acquired absence of other specified parts of digestive tract; Z90.710 Acquired absence of both cervix and uterus | CPT/HCPCS: 82962; 99183; G0277 ==

== ENCOUNTER 2018-12-29 07:47 | Outpatient (CLI) | payer MEDICARE | END 2018-12-29 07:48 | disposition home or self-care (01) | LOC: WOUND 07:47 | PROVIDERS: ATTEND Surgery | DX: E11.621 Type 2 diabetes mellitus with foot ulcer (principal); L97.513 Non-pressure chronic ulcer of other part of right foot with necrosis of muscle; E11.622 Type 2 diabetes mellitus with other skin ulcer; L97.312 Non-pressure chronic ulcer of right ankle with fat layer exposed; E11.69 Type 2 diabetes mellitus with other specified complication; M86.671 Other chronic osteomyelitis, right ankle and foot; E11.51 Type 2 diabetes mellitus with diabetic peripheral angiopathy without gangrene; E11.22 Type 2 diabetes mellitus with diabetic chronic kidney disease; I12.0 Hypertensive chronic kidney disease with stage 5 chronic kidney disease or end stage renal disease; N18.6 End stage renal disease; H54.7 Unspecified visual loss; Z99.2 Dependence on renal dialysis; Z90.49 Acquired absence of other specified parts of digestive tract; Z90.710 Acquired absence of both cervix and uterus | CPT/HCPCS: 82962; 99183; G0277 ==

== ENCOUNTER 2018-12-30 07:46 | Outpatient (CLI) | payer MEDICARE | END 2018-12-30 07:47 | disposition home or self-care (01) | LOC: WOUND 07:46 | PROVIDERS: ATTEND Surgery | DX: E11.621 Type 2 diabetes mellitus with foot ulcer (principal); L97.513 Non-pressure chronic ulcer of other part of right foot with necrosis of muscle; E11.622 Type 2 diabetes mellitus with other skin ulcer; L97.312 Non-pressure chronic ulcer of right ankle with fat layer exposed; E11.69 Type 2 diabetes mellitus with other specified complication; M86.671 Other chronic osteomyelitis, right ankle and foot; E11.51 Type 2 diabetes mellitus with diabetic peripheral angiopathy without gangrene; E11.22 Type 2 diabetes mellitus with diabetic chronic kidney disease; I12.0 Hypertensive chronic kidney disease with stage 5 chronic kidney disease or end stage renal disease; N18.6 End stage renal disease; H54.7 Unspecified visual loss; Z99.2 Dependence on renal dialysis; Z90.49 Acquired absence of other specified parts of digestive tract; Z90.710 Acquired absence of both cervix and uterus | CPT/HCPCS: 82962; 99183; G0277 ==

== ENCOUNTER 2018-12-31 07:47 | Outpatient (CLI) | payer MEDICARE ==
[2018-12-31] MEDS ORDERED: XYLOCAINE TOPICAL 4% TP ONE (11:45)
== END 2018-12-31 07:48 | disposition home or self-care (01) ==
LOC: WOUND 07:47
PROVIDERS: ATTEND Surgery
DX: E11.621 Type 2 diabetes mellitus with foot ulcer (principal); L97.513 Non-pressure chronic ulcer of other part of right foot with necrosis of muscle; E11.622 Type 2 diabetes mellitus with other skin ulcer; L97.312 Non-pressure chronic ulcer of right ankle with fat layer exposed; E11.69 Type 2 diabetes mellitus with other specified complication; M86.671 Other chronic osteomyelitis, right ankle and foot; E11.51 Type 2 diabetes mellitus with diabetic peripheral angiopathy without gangrene; E11.22 Type 2 diabetes mellitus with diabetic chronic kidney disease; I12.0 Hypertensive chronic kidney disease with stage 5 chronic kidney disease or end stage renal disease; N18.6 End stage renal disease; H54.7 Unspecified visual loss; Z99.2 Dependence on renal dialysis; Z90.49 Acquired absence of other specified parts of digestive tract; Z90.710 Acquired absence of both cervix and uterus
CPT/HCPCS: 11042; 11043; 11046; 97605; G0277; 82962; 99183

== ENCOUNTER 2019-01-01 07:48 | Outpatient (CLI) | payer MEDICARE | END 2019-01-01 07:49 | disposition home or self-care (01) | LOC: WOUND 07:48 | PROVIDERS: ATTEND Surgery | DX: E11.621 Type 2 diabetes mellitus with foot ulcer (principal); L97.513 Non-pressure chronic ulcer of other part of right foot with necrosis of muscle; E11.622 Type 2 diabetes mellitus with other skin ulcer; L97.312 Non-pressure chronic ulcer of right ankle with fat layer exposed; E11.69 Type 2 diabetes mellitus with other specified complication; E11.51 Type 2 diabetes mellitus with diabetic peripheral angiopathy without gangrene; M86.671 Other chronic osteomyelitis, right ankle and foot; E11.22 Type 2 diabetes mellitus with diabetic chronic kidney disease; I12.0 Hypertensive chronic kidney disease with stage 5 chronic kidney disease or end stage renal disease; N18.6 End stage renal disease; H54.7 Unspecified visual loss; Z99.2 Dependence on renal dialysis; Z90.49 Acquired absence of other specified parts of digestive tract; Z90.710 Acquired absence of both cervix and uterus | CPT/HCPCS: 82962; G0277; 99183 ==

== ENCOUNTER 2019-01-02 07:48 | Outpatient (CLI) | payer MEDICARE | END 2019-01-02 07:49 | disposition home or self-care (01) | LOC: WOUND 07:48 | PROVIDERS: ATTEND Surgery | DX: E11.621 Type 2 diabetes mellitus with foot ulcer (principal); L97.514 Non-pressure chronic ulcer of other part of right foot with necrosis of bone; E11.622 Type 2 diabetes mellitus with other skin ulcer; L97.312 Non-pressure chronic ulcer of right ankle with fat layer exposed; E11.69 Type 2 diabetes mellitus with other specified complication; M86.671 Other chronic osteomyelitis, right ankle and foot; E11.51 Type 2 diabetes mellitus with diabetic peripheral angiopathy without gangrene; E11.22 Type 2 diabetes mellitus with diabetic chronic kidney disease; I12.0 Hypertensive chronic kidney disease with stage 5 chronic kidney disease or end stage renal disease; N18.6 End stage renal disease; H54.7 Unspecified visual loss; Z90.49 Acquired absence of other specified parts of digestive tract; Z90.710 Acquired absence of both cervix and uterus | CPT/HCPCS: 82962; G0277; 99183 ==

== ENCOUNTER 2019-01-05 07:45 | Outpatient (CLI) | payer MEDICARE | END 2019-01-05 07:46 | disposition home or self-care (01) | LOC: WOUND 07:45 | PROVIDERS: ATTEND Surgery | DX: E11.621 Type 2 diabetes mellitus with foot ulcer (principal); L97.513 Non-pressure chronic ulcer of other part of right foot with necrosis of muscle; E11.622 Type 2 diabetes mellitus with other skin ulcer; L97.312 Non-pressure chronic ulcer of right ankle with fat layer exposed; E11.69 Type 2 diabetes mellitus with other specified complication; E11.51 Type 2 diabetes mellitus with diabetic peripheral angiopathy without gangrene; M86.671 Other chronic osteomyelitis, right ankle and foot; E11.22 Type 2 diabetes mellitus with diabetic chronic kidney disease; I12.0 Hypertensive chronic kidney disease with stage 5 chronic kidney disease or end stage renal disease; N18.6 End stage renal disease; H54.7 Unspecified visual loss; Z99.2 Dependence on renal dialysis; Z90.49 Acquired absence of other specified parts of digestive tract; Z90.710 Acquired absence of both cervix and uterus | CPT/HCPCS: 82962; G0277; 99183 ==

== ENCOUNTER 2019-01-06 07:48 | Outpatient (CLI) | payer MEDICARE | END 2019-01-06 07:49 | disposition home or self-care (01) | LOC: WOUND 07:48 | PROVIDERS: ATTEND Surgery | DX: E11.621 Type 2 diabetes mellitus with foot ulcer (principal); L97.513 Non-pressure chronic ulcer of other part of right foot with necrosis of muscle; E11.622 Type 2 diabetes mellitus with other skin ulcer; L97.312 Non-pressure chronic ulcer of right ankle with fat layer exposed; E11.69 Type 2 diabetes mellitus with other specified complication; M86.671 Other chronic osteomyelitis, right ankle and foot; E11.22 Type 2 diabetes mellitus with diabetic chronic kidney disease; N18.6 End stage renal disease; I12.0 Hypertensive chronic kidney disease with stage 5 chronic kidney disease or end stage renal disease; E11.51 Type 2 diabetes mellitus with diabetic peripheral angiopathy without gangrene; H54.7 Unspecified visual loss; Z90.710 Acquired absence of both cervix and uterus; Z90.49 Acquired absence of other specified parts of digestive tract | CPT/HCPCS: 82962; G0277; 99183 ==

== ENCOUNTER 2019-01-07 07:46 | Outpatient (CLI) | payer MEDICARE | END 2019-01-07 07:47 | disposition home or self-care (01) | LOC: WOUND 07:46 | PROVIDERS: ATTEND Surgery | DX: E11.621 Type 2 diabetes mellitus with foot ulcer (principal); L97.513 Non-pressure chronic ulcer of other part of right foot with necrosis of muscle; E11.622 Type 2 diabetes mellitus with other skin ulcer; L97.312 Non-pressure chronic ulcer of right ankle with fat layer exposed; E11.69 Type 2 diabetes mellitus with other specified complication; M86.671 Other chronic osteomyelitis, right ankle and foot; E11.22 Type 2 diabetes mellitus with diabetic chronic kidney disease; N18.6 End stage renal disease; I12.0 Hypertensive chronic kidney disease with stage 5 chronic kidney disease or end stage renal disease; E11.51 Type 2 diabetes mellitus with diabetic peripheral angiopathy without gangrene; H54.7 Unspecified visual loss; Z90.710 Acquired absence of both cervix and uterus; Z90.49 Acquired absence of other specified parts of digestive tract | CPT/HCPCS: 11042; 11043; 11046; 82962; 97605; G0277; 99183 ==

== ENCOUNTER 2019-01-08 07:48 | Outpatient (CLI) | payer MEDICARE | END 2019-01-08 07:49 | disposition home or self-care (01) | LOC: WOUND 07:48 | PROVIDERS: ATTEND Surgery | DX: E11.621 Type 2 diabetes mellitus with foot ulcer (principal); L97.513 Non-pressure chronic ulcer of other part of right foot with necrosis of muscle; E11.622 Type 2 diabetes mellitus with other skin ulcer; L97.312 Non-pressure chronic ulcer of right ankle with fat layer exposed; E11.69 Type 2 diabetes mellitus with other specified complication; M86.671 Other chronic osteomyelitis, right ankle and foot; E11.22 Type 2 diabetes mellitus with diabetic chronic kidney disease; N18.6 End stage renal disease; I12.0 Hypertensive chronic kidney disease with stage 5 chronic kidney disease or end stage renal disease; E11.51 Type 2 diabetes mellitus with diabetic peripheral angiopathy without gangrene; H54.7 Unspecified visual loss; Z90.710 Acquired absence of both cervix and uterus; Z90.49 Acquired absence of other specified parts of digestive tract | CPT/HCPCS: 82962; G0277; 99183 ==

== ENCOUNTER 2019-01-13 07:48 | Outpatient (CLI) | payer MEDICARE | END 2019-01-13 07:49 | disposition home or self-care (01) | LOC: WOUND 07:48 | PROVIDERS: ATTEND Surgery | DX: E11.621 Type 2 diabetes mellitus with foot ulcer (principal); L97.513 Non-pressure chronic ulcer of other part of right foot with necrosis of muscle; E11.622 Type 2 diabetes mellitus with other skin ulcer; L97.312 Non-pressure chronic ulcer of right ankle with fat layer exposed; E11.69 Type 2 diabetes mellitus with other specified complication; M86.671 Other chronic osteomyelitis, right ankle and foot; E11.51 Type 2 diabetes mellitus with diabetic peripheral angiopathy without gangrene; E11.22 Type 2 diabetes mellitus with diabetic chronic kidney disease; I12.0 Hypertensive chronic kidney disease with stage 5 chronic kidney disease or end stage renal disease; N18.6 End stage renal disease; H54.7 Unspecified visual loss; Z90.49 Acquired absence of other specified parts of digestive tract; Z90.710 Acquired absence of both cervix and uterus | CPT/HCPCS: 82962; G0277; 99183 ==

== ENCOUNTER 2019-01-14 07:48 | Outpatient (CLI) | payer MEDICARE ==
[2019-01-14] MEDS ORDERED: XYLOCAINE TOPICAL 4% TP ONE (11:00)
[2019-01-14] MEDS ORDERED: SILVER NITRATE TP ONE (11:00)
== END 2019-01-14 07:49 | disposition home or self-care (01) ==
LOC: WOUND 07:48
PROVIDERS: ATTEND Surgery
DX: E11.621 Type 2 diabetes mellitus with foot ulcer (principal); L97.513 Non-pressure chronic ulcer of other part of right foot with necrosis of muscle; E11.622 Type 2 diabetes mellitus with other skin ulcer; L97.312 Non-pressure chronic ulcer of right ankle with fat layer exposed; E11.69 Type 2 diabetes mellitus with other specified complication; M86.671 Other chronic osteomyelitis, right ankle and foot; E11.51 Type 2 diabetes mellitus with diabetic peripheral angiopathy without gangrene; E11.22 Type 2 diabetes mellitus with diabetic chronic kidney disease; I12.0 Hypertensive chronic kidney disease with stage 5 chronic kidney disease or end stage renal disease; N18.6 End stage renal disease; H54.7 Unspecified visual loss; Z90.49 Acquired absence of other specified parts of digestive tract; Z90.710 Acquired absence of both cervix and uterus
CPT/HCPCS: 11042; 11043; 11046; 97605; G0277; 82962; 99183

== ENCOUNTER 2019-01-16 07:46 | Outpatient (CLI) | payer MEDICARE | END 2019-01-16 07:47 | disposition home or self-care (01) | LOC: WOUND 07:46 | PROVIDERS: ATTEND Surgery | DX: E11.621 Type 2 diabetes mellitus with foot ulcer (principal); L97.513 Non-pressure chronic ulcer of other part of right foot with necrosis of muscle; E11.622 Type 2 diabetes mellitus with other skin ulcer; L97.312 Non-pressure chronic ulcer of right ankle with fat layer exposed; L97.821 Non-pressure chronic ulcer of other part of left lower leg limited to breakdown of skin; E11.69 Type 2 diabetes mellitus with other specified complication; M86.671 Other chronic osteomyelitis, right ankle and foot; E11.22 Type 2 diabetes mellitus with diabetic chronic kidney disease; I12.0 Hypertensive chronic kidney disease with stage 5 chronic kidney disease or end stage renal disease; N18.6 End stage renal disease; E11.51 Type 2 diabetes mellitus with diabetic peripheral angiopathy without gangrene; H54.7 Unspecified visual loss; Z90.710 Acquired absence of both cervix and uterus; Z90.49 Acquired absence of other specified parts of digestive tract | CPT/HCPCS: 82962; G0277; 99183 ==

== ENCOUNTER 2019-01-21 07:42 | Outpatient (CLI) | payer MEDICARE ==
[2019-01-21] MEDS ORDERED: XYLOCAINE TOPICAL 4% TP ONE (14:13)
== END 2019-01-21 07:43 | disposition home or self-care (01) ==
LOC: WOUND 07:42
PROVIDERS: ATTEND Surgery
DX: E11.621 Type 2 diabetes mellitus with foot ulcer (principal); L97.513 Non-pressure chronic ulcer of other part of right foot with necrosis of muscle; E11.622 Type 2 diabetes mellitus with other skin ulcer; L97.312 Non-pressure chronic ulcer of right ankle with fat layer exposed; L97.821 Non-pressure chronic ulcer of other part of left lower leg limited to breakdown of skin; E11.69 Type 2 diabetes mellitus with other specified complication; M86.671 Other chronic osteomyelitis, right ankle and foot; E11.22 Type 2 diabetes mellitus with diabetic chronic kidney disease; I12.0 Hypertensive chronic kidney disease with stage 5 chronic kidney disease or end stage renal disease; N18.6 End stage renal disease; E11.51 Type 2 diabetes mellitus with diabetic peripheral angiopathy without gangrene; H54.7 Unspecified visual loss; Z90.710 Acquired absence of both cervix and uterus; Z90.49 Acquired absence of other specified parts of digestive tract
CPT/HCPCS: 11042; 11043; 11045; 11046; 82962; 97605; G0277; 99183

== ENCOUNTER 2019-01-22 07:48 | Outpatient (CLI) | payer MEDICARE | END 2019-01-22 07:49 | disposition home or self-care (01) | LOC: WOUND 07:48 | PROVIDERS: ATTEND Surgery | DX: E11.621 Type 2 diabetes mellitus with foot ulcer (principal); L97.513 Non-pressure chronic ulcer of other part of right foot with necrosis of muscle; E11.622 Type 2 diabetes mellitus with other skin ulcer; L97.312 Non-pressure chronic ulcer of right ankle with fat layer exposed; L97.821 Non-pressure chronic ulcer of other part of left lower leg limited to breakdown of skin; E11.69 Type 2 diabetes mellitus with other specified complication; M86.671 Other chronic osteomyelitis, right ankle and foot; E11.22 Type 2 diabetes mellitus with diabetic chronic kidney disease; I12.0 Hypertensive chronic kidney disease with stage 5 chronic kidney disease or end stage renal disease; N18.6 End stage renal disease; E11.51 Type 2 diabetes mellitus with diabetic peripheral angiopathy without gangrene; H54.7 Unspecified visual loss; Z90.710 Acquired absence of both cervix and uterus; Z90.49 Acquired absence of other specified parts of digestive tract | CPT/HCPCS: 82962; G0277; 99183 ==

== ENCOUNTER 2019-01-23 07:50 | Outpatient (CLI) | payer MEDICARE | END 2019-01-23 07:51 | disposition home or self-care (01) | LOC: WOUND 07:50 | PROVIDERS: ATTEND Surgery | DX: E11.621 Type 2 diabetes mellitus with foot ulcer (principal); L97.512 Non-pressure chronic ulcer of other part of right foot with fat layer exposed; E11.622 Type 2 diabetes mellitus with other skin ulcer; L97.312 Non-pressure chronic ulcer of right ankle with fat layer exposed; L97.821 Non-pressure chronic ulcer of other part of left lower leg limited to breakdown of skin; E11.69 Type 2 diabetes mellitus with other specified complication; M86.671 Other chronic osteomyelitis, right ankle and foot; E11.22 Type 2 diabetes mellitus with diabetic chronic kidney disease; I12.0 Hypertensive chronic kidney disease with stage 5 chronic kidney disease or end stage renal disease; N18.6 End stage renal disease; E11.51 Type 2 diabetes mellitus with diabetic peripheral angiopathy without gangrene; H54.7 Unspecified visual loss; Z90.49 Acquired absence of other specified parts of digestive tract; Z90.710 Acquired absence of both cervix and uterus | CPT/HCPCS: 82962; 99183; G0277 ==

== ENCOUNTER 2019-01-27 07:34 | Outpatient (CLI) | payer MEDICARE ==
[2019-01-27] MEDS ORDERED: XYLOCAINE TOPICAL 4% TP ONE (10:00)
== END 2019-01-27 07:35 | disposition home or self-care (01) ==
LOC: WOUND 07:34
PROVIDERS: ATTEND Surgery
DX: E11.621 Type 2 diabetes mellitus with foot ulcer (principal); L97.512 Non-pressure chronic ulcer of other part of right foot with fat layer exposed; E11.622 Type 2 diabetes mellitus with other skin ulcer; L97.312 Non-pressure chronic ulcer of right ankle with fat layer exposed; L97.821 Non-pressure chronic ulcer of other part of left lower leg limited to breakdown of skin; E11.69 Type 2 diabetes mellitus with other specified complication; M86.671 Other chronic osteomyelitis, right ankle and foot; E11.22 Type 2 diabetes mellitus with diabetic chronic kidney disease; I12.0 Hypertensive chronic kidney disease with stage 5 chronic kidney disease or end stage renal disease; N18.6 End stage renal disease; E11.51 Type 2 diabetes mellitus with diabetic peripheral angiopathy without gangrene; H54.7 Unspecified visual loss; Z90.49 Acquired absence of other specified parts of digestive tract; Z90.710 Acquired absence of both cervix and uterus
CPT/HCPCS: 11043; 11046; 82962; 97605; G0277; 99183

== ENCOUNTER 2019-01-28 07:44 | Outpatient (CLI) | payer MEDICARE | END 2019-01-28 07:45 | disposition home or self-care (01) | LOC: WOUND 07:44 | PROVIDERS: ATTEND Surgery | DX: E11.621 Type 2 diabetes mellitus with foot ulcer (principal); L97.512 Non-pressure chronic ulcer of other part of right foot with fat layer exposed; E11.622 Type 2 diabetes mellitus with other skin ulcer; L97.312 Non-pressure chronic ulcer of right ankle with fat layer exposed; L97.821 Non-pressure chronic ulcer of other part of left lower leg limited to breakdown of skin; E11.69 Type 2 diabetes mellitus with other specified complication; M86.671 Other chronic osteomyelitis, right ankle and foot; E11.22 Type 2 diabetes mellitus with diabetic chronic kidney disease; I12.0 Hypertensive chronic kidney disease with stage 5 chronic kidney disease or end stage renal disease; N18.6 End stage renal disease; E11.51 Type 2 diabetes mellitus with diabetic peripheral angiopathy without gangrene; H54.7 Unspecified visual loss; Z90.49 Acquired absence of other specified parts of digestive tract; Z90.710 Acquired absence of both cervix and uterus | CPT/HCPCS: 82962; 99183; G0277 ==

== ENCOUNTER 2019-01-29 07:43 | Outpatient (CLI) | payer MEDICARE | END 2019-01-29 07:44 | disposition home or self-care (01) | LOC: WOUND 07:43 | PROVIDERS: ATTEND Surgery | DX: E11.621 Type 2 diabetes mellitus with foot ulcer (principal); L97.513 Non-pressure chronic ulcer of other part of right foot with necrosis of muscle; E11.622 Type 2 diabetes mellitus with other skin ulcer; L97.312 Non-pressure chronic ulcer of right ankle with fat layer exposed; L97.821 Non-pressure chronic ulcer of other part of left lower leg limited to breakdown of skin; E11.69 Type 2 diabetes mellitus with other specified complication; M86.671 Other chronic osteomyelitis, right ankle and foot; E11.22 Type 2 diabetes mellitus with diabetic chronic kidney disease; I12.0 Hypertensive chronic kidney disease with stage 5 chronic kidney disease or end stage renal disease; N18.6 End stage renal disease; E11.51 Type 2 diabetes mellitus with diabetic peripheral angiopathy without gangrene; H54.7 Unspecified visual loss; Z90.49 Acquired absence of other specified parts of digestive tract; Z90.710 Acquired absence of both cervix and uterus | CPT/HCPCS: 82962; 99183; G0277 ==

== ENCOUNTER 2019-02-02 07:47 | Outpatient (CLI) | payer MEDICARE | END 2019-02-02 07:48 | disposition home or self-care (01) | LOC: WOUND 07:47 | PROVIDERS: ATTEND Surgery | DX: E11.621 Type 2 diabetes mellitus with foot ulcer (principal); L97.513 Non-pressure chronic ulcer of other part of right foot with necrosis of muscle; E11.622 Type 2 diabetes mellitus with other skin ulcer; L97.312 Non-pressure chronic ulcer of right ankle with fat layer exposed; E11.69 Type 2 diabetes mellitus with other specified complication; M86.671 Other chronic osteomyelitis, right ankle and foot; E11.22 Type 2 diabetes mellitus with diabetic chronic kidney disease; I12.0 Hypertensive chronic kidney disease with stage 5 chronic kidney disease or end stage renal disease; N18.6 End stage renal disease; E11.51 Type 2 diabetes mellitus with diabetic peripheral angiopathy without gangrene; H54.7 Unspecified visual loss; Z90.49 Acquired absence of other specified parts of digestive tract; Z90.710 Acquired absence of both cervix and uterus | CPT/HCPCS: 82962; 99183; G0277 ==

== ENCOUNTER 2019-02-03 07:55 | Outpatient (CLI) | payer MEDICARE ==
[2019-02-03] MEDS ORDERED: XYLOCAINE TOPICAL 4% TP ONE (10:30)
== END 2019-02-03 07:56 | disposition home or self-care (01) ==
LOC: WOUND 07:55
PROVIDERS: ATTEND Surgery
DX: E11.621 Type 2 diabetes mellitus with foot ulcer (principal); L97.513 Non-pressure chronic ulcer of other part of right foot with necrosis of muscle; E11.622 Type 2 diabetes mellitus with other skin ulcer; L97.312 Non-pressure chronic ulcer of right ankle with fat layer exposed; E11.69 Type 2 diabetes mellitus with other specified complication; M86.671 Other chronic osteomyelitis, right ankle and foot; E11.22 Type 2 diabetes mellitus with diabetic chronic kidney disease; I12.0 Hypertensive chronic kidney disease with stage 5 chronic kidney disease or end stage renal disease; N18.6 End stage renal disease; E11.51 Type 2 diabetes mellitus with diabetic peripheral angiopathy without gangrene; H54.7 Unspecified visual loss; Z90.49 Acquired absence of other specified parts of digestive tract; Z90.710 Acquired absence of both cervix and uterus
CPT/HCPCS: 82962; G0277; G0463; 99183; 99215

== ENCOUNTER 2019-02-04 12:54 | Outpatient (CLI) | payer MEDICARE | END 2019-02-04 12:55 | disposition home or self-care (01) | LOC: WOUND 12:54 | PROVIDERS: ATTEND Surgery | DX: E11.621 Type 2 diabetes mellitus with foot ulcer (principal); L97.516 Non-pressure chronic ulcer of other part of right foot with bone involvement without evidence of necrosis; E11.622 Type 2 diabetes mellitus with other skin ulcer; L97.312 Non-pressure chronic ulcer of right ankle with fat layer exposed; E11.69 Type 2 diabetes mellitus with other specified complication; M86.671 Other chronic osteomyelitis, right ankle and foot; E11.51 Type 2 diabetes mellitus with diabetic peripheral angiopathy without gangrene; E11.22 Type 2 diabetes mellitus with diabetic chronic kidney disease; I12.0 Hypertensive chronic kidney disease with stage 5 chronic kidney disease or end stage renal disease; N18.6 End stage renal disease; H54.7 Unspecified visual loss; Z90.49 Acquired absence of other specified parts of digestive tract; Z90.710 Acquired absence of both cervix and uterus | CPT/HCPCS: 99215; G0463 ==

== ENCOUNTER 2019-02-12 07:56 | Outpatient (CLI) | payer MEDICARE ==
[2019-02-12] MEDS ORDERED: SILVER NITRATE TP ONE (08:30)
[2019-02-12] MEDS ORDERED: XYLOCAINE TOPICAL 4% TP ONE (08:30)
== END 2019-02-12 07:57 | disposition home or self-care (01) ==
LOC: WOUND 07:56
PROVIDERS: ATTEND Surgery
DX: E11.621 Type 2 diabetes mellitus with foot ulcer (principal); L97.513 Non-pressure chronic ulcer of other part of right foot with necrosis of muscle; E11.622 Type 2 diabetes mellitus with other skin ulcer; L97.312 Non-pressure chronic ulcer of right ankle with fat layer exposed; E11.69 Type 2 diabetes mellitus with other specified complication; M86.671 Other chronic osteomyelitis, right ankle and foot; E11.51 Type 2 diabetes mellitus with diabetic peripheral angiopathy without gangrene; E11.22 Type 2 diabetes mellitus with diabetic chronic kidney disease; I12.0 Hypertensive chronic kidney disease with stage 5 chronic kidney disease or end stage renal disease; N18.6 End stage renal disease; H54.7 Unspecified visual loss; Z90.49 Acquired absence of other specified parts of digestive tract; Z90.710 Acquired absence of both cervix and uterus

== ENCOUNTER 2019-02-16 11:35 | Inpatient (IN) | payer MEDICARE ==
[2019-02-16] MEDS ORDERED: MORPHINE ONE (12:53)
[2019-02-16] MEDS ORDERED: ZOFRAN ONE (12:53)
[2019-02-16] MEDS ORDERED: NACL 0.9% 500 ML IR ONE (13:09)
[2019-02-16] MEDS ORDERED: NACL 0.9% 1000 ML IV ONE (13:10)
[2019-02-16] MEDS ORDERED: VANCOMYCIN/NS 1 GM/250 ML 1 GM/250 ML BAG IV ONE (13:12)
[2019-02-16] MEDS ORDERED: NACL 0.9% IR ONE (13:36)
[2019-02-16] MEDS ORDERED: ZOFRAN IV ONE (13:37)
[2019-02-16] MEDS ORDERED: MORPHINE IV ONE (13:37)
--- NOTE | 2019-02-16 13:38 | XRay Report ---
AP CHEST: HISTORY: Sepsis evaluation Compared to 11/29/18. There is poor inspiration. Mild cardiomegaly and central pulmonary venous congestion appear relatively stable since the comparison exam. There are mild hypoventilatory changes in both lungs but no obvious consolidation, pleural effusion or pneumothorax. The bony structures are grossly intact. Left axillary vascular stent is noted. IMPRESSION: Limited exam with poor inspiration. Mild cardiomegaly and central pulmonary venous congestion.
[2019-02-16 14:17] LABS: Mean Corpuscular HGB Conc 30 % (30-34); Mean Corpuscular Volume 74 fl (79-97); Red Blood Count 4.01 M/mm3 (3.65-5.03); Red Cell Distribution Width 18.9 % (13.2-15.2)
[2019-02-16 14:19] LABS: Hematocrit 29.5 % (30.3-42.9); Hemoglobin 8.8 gm/dl (10.1-14.3)
--- NOTE | 2019-02-16 14:25 | Emergency Department Report ---
ED General Adult HPI - General Chief complaint: Wound/Laceration Stated complaint: RT FOOT PAIN Time Seen by Provider: 02/16/19 12:26 Source: EMS Mode of arrival: Ambulatory Limitations: No Limitations - History of Present Illness Initial comments: Patient presents to the emergency department with a chief complaint right foot pain. Patient states she is scheduled for amputation some time within the next week or 2. Patient states the pain medications or home are not working to control her pain. Patient denies chest pain, , or headache. -: Gradual Location: lower extremity Severity scale (0 -10): 10 Quality: sharp Consistency: constant Improves with: none Worsens with: none Associated Symptoms: denies other symptoms Treatments Prior to Arrival: none - Related Data Home Medications Medication Instructions Recorded Confirmed Last Taken B Complex 11/Folic/C/Biot/Zinc 1 each PO DAILY 09/06/15 02/16/19 11/25/18 20:00 [Dialyvite with Zinc Tablet] Lispro Insulin [Humalog] 7 unit SQ AC 11/25/18 02/16/19 Unknown Pantoprazole Sodium 40 mg PO DAILY 11/25/18 02/16/19 11/26/18 05:00 amLODIPine [Norvasc] 5 mg PO DAILY 11/25/18 02/16/19 11/28/18 2.5 Ranitidine HCl [Zantac] 300 mg PO BID 02/16/19 02/16/19 Unknown Allergies Allergy/AdvReac Type Severity Reaction Status Date / Time Iodinated Contrast- Oral and Allergy Hives, Rash Verified 11/25/18 15:48 IV Dye Penicillins Allergy Hives Verified 11/25/18 15:48 ED Review of Systems ROS: Stated complaint: RT FOOT PAIN Other details as noted in HPI Constitutional: denies: chills, fever Eyes: denies: eye pain, eye discharge, vision change ENT: denies: ear pain, throat pain Respiratory: denies: cough, shortness of breath, wheezing Cardiovascular: denies: chest pain, palpitations Endocrine: no symptoms reported Gastrointestinal: denies: abdominal pain, nausea, diarrhea Genitourinary: denies: urgency, dysuria, discharge Musculoskeletal: other (Right foot pain). denies: back pain, joint swelling, arthralgia Skin: denies: rash, lesions Neurological: denies: headache, weakness, paresthesias Psychiatric: denies: anxiety, depression Hematological/Lymphatic: denies: easy bleeding, easy bruising ED Past Medical Hx - Past Medical History Previous Medical History?: Yes Hx Hypertension: Yes (SINCE ) Hx CVA: Yes (2013) Hx Heart Attack/AMI: No Hx Congestive Heart Failure: Yes (WAITING FOR CONFIRMATION FROM HER COLOR ADVISER) Hx Diabetes: Yes (SINCE ) Hx Deep Vein Thrombosis: No Hx Pulmonary Embolism: No Hx GERD: Yes (PANTOPROZOLE) Hx Liver Disease: No Hx Renal Disease: No Hx of Cancer: No Hx Sickle Cell Disease: No Hx Arthritis: Yes Hx Headaches / Migraines: No Hx Seizures: No Hx Kidney Stones: No Hx Psychiatric Treatment: No Hx Asthma: No Hx COPD: Yes Hx Tuberculosis: No Hx Dementia: No Hx HIV: No Additional medical history: sleep apnea, legally blind, L upper arm graft, sleep apnea (cpap qHS), anuric, hypothyrodism, diabetic neuropathy, - Surgical History Past Surgical History?: Yes Hx Coronary Stent: No Hx Open Heart Surgery: No Hx Pacemaker: No Hx Internal Defibrillator: No Hx Cholecystectomy: Yes (2009) Hx Appendectomy: No Hx Breast Surgery: No Additional Surgical History: right toe removal - Social History Smoking Status: Never Smoker Substance Use Type: None - Medications Home Medications: Home Medications Medication Instructions Recorded Confirmed Last Taken Type B Complex 11/Folic/C/Biot/Zinc 1 each PO DAILY 09/06/15 02/16/19 11/25/18 20:00 History [Dialyvite with Zinc Tablet] Lispro Insulin [Humalog] 7 unit SQ AC 11/25/18 02/16/19 Unknown History Pantoprazole Sodium 40 mg PO DAILY 11/25/18 02/16/19 11/26/18 05:00 History amLODIPine [Norvasc] 5 mg PO DAILY 11/25/18 02/16/19 11/28/18 History 2.5 Ranitidine HCl [Zantac] 300 mg PO BID 02/16/19 02/16/19 Unknown History ED Physical Exam - General Limitations: No Limitations General appearance: alert, in no apparent distress - Head Head exam: Present: atraumatic, normocephalic - Eye Eye exam: Present: normal appearance, PERRL, EOMI - ENT ENT exam: Present: mucous membranes moist - Neck Neck exam: Present: normal inspection - Respiratory Respiratory exam: Present: normal lung sounds bilaterally. Absent: respiratory distress - Cardiovascular Cardiovascular Exam: Present: regular rate, normal rhythm. Absent: systolic murmur, diastolic murmur, rubs, gallop - GI/Abdominal GI/Abdominal exam: Present: soft, normal bowel sounds. Absent: distended, tenderness - Extremities Exam Extremities exam: Present: other (Dry gangrene to the third of fourth digit of the right foot with previous amputation of the fifth digit. Patient has decreased cap refill of the digits of the right foot) - Back Exam Back exam: Present: normal inspection - Neurological Exam Neurological exam: Present: alert, oriented X3 - Psychiatric Psychiatric exam: Present: normal affect, normal mood - Skin Skin exam: Present: warm, dry, intact, normal color. Absent: rash ED Course Vital Signs 02/16/19 02/16/19 12:25 14:01 Temperature 98.5 F Pulse Rate 71 Respiratory 12 18 Rate Blood Pressure 137/58 Blood Pressure 137/58 [Right] O2 Sat by Pulse 100 Oximetry ED Medical Decision Making - Lab Data Result diagrams: 02/16/19 13:54 02/16/19 13:54 Lab Results 02/16/19 02/16/19 02/16/19 Range/Units 13:54 13:54 13:54 WBC 20.8 H (4.5-11.0) K/mm3 RBC 4.01 (3.65-5.03) M/mm3 Hgb 8.8 L (10.1-14.3) gm/dl Hct 29.5 L (30.3-42.9) % MCV 74 L (79-97) fl MCH 22 L (28-32) pg MCHC 30 (30-34) % RDW 18.9 H (13.2-15.2) % Plt Count 308 (140-440) K/mm3 Add Manual Diff Complete Total Counted 100 Seg Neuts % (Manual) 88.0 H (40.0-70.0) % Band Neutrophils % 1.0 % Lymphocytes % (Manual) 7.0 L (13.4-35.0) % Reactive Lymphs % (Man) 0 % Monocytes % (Manual) 3.0 (0.0-7.3) % Eosinophils % (Manual) 1.0 (0.0-4.3) % Basophils % (Manual) 0 (0.0-1.8) % Metamyelocytes % 0 % Myelocytes % 0 % Promyelocytes % 0 % Blast Cells % 0 % Nucleated RBC % 3.0 H (0.0-0.9) % Seg Neutrophils # Man 18.3 H (1.8-7.7) K/mm3 Band Neutrophils # 0.2 K/mm3 Lymphocytes # (Manual) 1.5 (1.2-5.4) K/mm3 Abs React Lymphs (Man) 0.0 K/mm3 Monocytes # (Manual) 0.6 (0.0-0.8) K/mm3 Eosinophils # (Manual) 0.2 (0.0-0.4) K/mm3 Basophils # (Manual) 0.0 (0.0-0.1) K/mm3 Metamyelocytes # 0.0 K/mm3 Myelocytes # 0.0 K/mm3 Promyelocytes # 0.0 K/mm3 Blast Cells # 0.0 K/mm3 WBC Morphology Not Reportable Hypersegmented Neuts Not Reportable Hyposegmented Neuts Not Reportable Hypogranular Neuts Not Reportable Smudge Cells Not Reportable Toxic Granulation Not Reportable Toxic Vacuolation Not Reportable Dohle Bodies Not Reportable Pelger-Huet Anomaly Not Reportable Roxanne Rods Not Reportable Platelet Estimate Consistent w auto Clumped Platelets Not Reportable Plt Clumps, EDTA Not Reportable Large Platelets Not Reportable Giant Platelets Not Reportable Platelet Satelliting Not Reportable Plt Morphology Comment Not Reportable RBC Morphology Not Reportable Dimorphic RBCs Not Reportable Polychromasia Rare Hypochromasia 2+ Poikilocytosis 1+ Anisocytosis 1+ Microcytosis Not Reportable Macrocytosis Not Reportable Spherocytes Not Reportable Pappenheimer Bodies Not Reportable Sickle Cells Not Reportable Target Cells Rare Tear Drop Cells Rare Ovalocytes Few Helmet Cells Not Reportable Sanchez-Paac [place] Bodies Not Reportable Crum Rings Not Reportable Franklin Cells Not Reportable Bite Cells Not Reportable Crenated Cell Not Reportable Elliptocytes 1+ Acanthocytes (Spur) Not Reportable Rouleaux Not Reportable Hemoglobin C Crystals Not Reportable Schistocytes Not Reportable Malaria parasites Not Reportable Hood Bodies Not Reportable Hem Pathologist Commnt No APTT 23.5 L (24.2-36.6) Sec. Sodium 136 L (137-145) mmol/L Potassium 3.7 (3.6-5.0) mmol/L Chloride 92.3 L (98-107) mmol/L Carbon Dioxide 23 (22-30) mmol/L Anion Gap 24 mmol/L BUN 46 H (7-17) mg/dL Creatinine 5.4 H (0.7-1.2) mg/dL Estimated GFR 9 ml/min BUN/Creatinine Ratio 9 % Glucose 225 H (65-100) mg/dL Lactic Acid (0.7-2.0) mmol/L Calcium 8.6 (8.4-10.2) mg/dL Total Bilirubin 0.40 (0.1-1.2) mg/dL AST 41 H (5-40) units/L ALT 25 (7-56) units/L Alkaline Phosphatase 252 H (35-129) units/L Total Protein 7.3 (6.3-8.2) g/dL Albumin 2.9 L (3.9-5) g/dL Albumin/Globulin Ratio 0.7 % 02/16/19 02/16/19 Range/Units 15:40 Unknown WBC (4.5-11.0) K/mm3 RBC (3.65-5.03) M/mm3 Hgb (10.1-14.3) gm/dl Hct (30.3-42.9) % MCV (79-97) fl MCH (28-32) pg MCHC (30-34) % RDW (13.2-15.2) % Plt Count (140-440) K/mm3 Add Manual Diff Total Counted Seg Neuts % (Manual) (40.0-70.0) % Band Neutrophils % % Lymphocytes % (Manual) (13.4-35.0) % Reactive Lymphs % (Man) % Monocytes % (Manual) (0.0-7.3) % Eosinophils % (Manual) (0.0-4.3) % Basophils % (Manual) (0.0-1.8) % Metamyelocytes % % Myelocytes % % Promyelocytes % % Blast Cells % % Nucleated RBC % (0.0-0.9) % Seg Neutrophils # Man (1.8-7.7) K/mm3 Band Neutrophils # K/mm3 Lymphocytes # (Manual) (1.2-5.4) K/mm3 Abs React Lymphs (Man) K/mm3 Monocytes # (Manual) (0.0-0.8) K/mm3 Eosinophils # (Manual) (0.0-0.4) K/mm3 Basophils # (Manual) (0.0-0.1) K/mm3 Metamyelocytes # K/mm3 Myelocytes # K/mm3 Promyelocytes # K/mm3 Blast Cells # K/mm3 WBC Morphology Hypersegmented Neuts Hyposegmented Neuts Hypogranular Neuts Smudge Cells Toxic Granulation Toxic Vacuolation Dohle Bodies Pelger-Huet Anomaly Roxanne Rods Platelet Estimate Clumped Platelets Plt Clumps, EDTA Large Platelets Giant Platelets Platelet Satelliting Plt Morphology Comment RBC Morphology Dimorphic RBCs Polychromasia Hypochromasia Poikilocytosis Anisocytosis Microcytosis Macrocytosis Spherocytes Pappenheimer Bodies Sickle Cells Target Cells Tear Drop Cells Ovalocytes Helmet Cells Sanchez-Paac Ci[place] Bodies Crum Rings Franklin Cells Bite Cells Crenated Cell Elliptocytes Acanthocytes (Spur) Rouleaux Hemoglobin C Crystals Schistocytes Malaria parasites Hood Bodies Hem Pathologist Commnt APTT (24.2-36.6) Sec. Sodium (137-145) mmol/L Potassium (3.6-5.0) mmol/L Chloride (98-107) mmol/L Carbon Dioxide (22-30) mmol/L Anion Gap mmol/L BUN (7-17) mg/dL Creatinine (0.7-1.2) mg/dL Estimated GFR ml/min BUN/Creatinine Ratio % Glucose (65-100) mg/dL Lactic Acid 2.30 H* 1.80 (0.7-2.0) mmol/L Calcium (8.4-10.2) mg/dL Total Bilirubin (0.1-1.2) mg/dL AST (5-40) units/L ALT (7-56) units/L Alkaline Phosphatase (35-129) units/L Total Protein (6.3-8.2) g/dL Albumin (3.9-5) g/dL Albumin/Globulin Ratio % Left - Radiology Data Radiology results: report reviewed - Medical Decision Making Sepsis protocol initiated Spoke with Dr. Munoz and patient shall be admitted with plans for amputation Critical Care Time: Yes Critical care time in (mins) excluding proc time.: 35 Critical care attestation.: If time is entered above; I have spent that time in minutes in the direct care of this critically ill patient, excluding procedure time. ED Disposition Clinical Impression: Gangrene of toe of right foot, SIRS (systemic inflammatory response syndrome) Disposition: OP ADMIT IP TO THIS HOSP Is pt being admited?: Yes Does the pt Need Aspirin: No Condition: Fair Referrals: PAULA COOK MD [Primary Care Provider] - 3-5 Days
[2019-02-16 14:33] LABS: Albumin 2.9 g/dL (3.9-5); Calcium 8.6 mg/dL (8.4-10.2)
[2019-02-16 14:47] LABS: Platelet Count 308 K/mm3 (140-440)
[2019-02-16 14:49] LABS: Anisocytosis 1+; Band Neutrophils # (Manual) 0.2 K/mm3; Basophils % (Manual) 0 % (0.0-1.8); Poikilocytosis 1+; Total Cells Counted 100
[2019-02-16 14:50] LABS: Hypochromasia 2+; Ovalocytes Few; Tear Drop Cells Rare
[2019-02-16 14:51] LABS: Platelet Estimate Consistent w Auto; Target Cells Rare
--- NOTE | 2019-02-16 16:31 | History and Physical Report ---
History of Present Illness Chief complaint: My foot is infected History of present illness: 78 YO Female with ESRD on HD (T,R,Sa), RLE gangrene pending amputation, GERD, HTN, Hypothyroidism, Diastolic CHF presents to ED for evaluation. Pt states that she has experienced pain in her right foot. Pt states that her pain is 4-6/10, constant, and not currently controlled by current medication. EMS notified and upon arrival the patient was found to be in distress. Pt transported to [facility]. Pt seen and evaluated in ED and found to have Sepsis secondary to RLE Gangrene, ESRD, and Acidosis. Surgery consulted in ED, Nephrology consulted in ED. Pt admitted to [facility]. 35 minutes additional time spent discussing care plan with daughter, who is at bedside during exam and interview. Daughter acknowledges understanding and agreement with care plan. Prior admission on 11/29/18 reviewed. All listed medication reconciled at time of admission. Past History Past Medical History: ESRD, GERD, heart failure, hypertension, hypothyroidism Past Surgical History: cholecystectomy, Other (toe surgery) Medications and Allergies Allergies Allergy/AdvReac Type Severity Reaction Status Date / Time Iodinated Contrast- Oral and Allergy Hives, Rash Verified 11/25/18 15:48 IV Dye Penicillins Allergy Hives Verified 11/25/18 15:48 Home Medications Medication Instructions Recorded Confirmed Last Taken Type B Complex 11/Folic/C/Biot/Zinc 1 each PO DAILY 09/06/15 02/16/19 11/25/18 20:00 History [Dialyvite with Zinc Tablet] Lispro Insulin [Humalog] 7 unit SQ AC 11/25/18 02/16/19 Unknown History Pantoprazole Sodium 40 mg PO DAILY 11/25/18 02/16/19 11/26/18 05:00 History amLODIPine [Norvasc] 5 mg PO DAILY 11/25/18 02/16/19 11/28/18 History 2.5 Ranitidine HCl [Zantac] 300 mg PO BID 02/16/19 02/16/19 Unknown History Exam - Constitutional Vitals: Temp Pulse Resp BP Pulse Ox 98.5 F 71 18 137/58 100 02/16/19 12:25 02/16/19 12:25 02/16/19 14:01 02/16/19 12:25 02/16/19 12:25 General appearance: Present: mild distress - EENT Eyes: Present: PERRL ENT: hearing intact, clear oral mucosa - Neck Neck: Present: supple, normal ROM - Respiratory Respiratory effort: normal Respiratory: bilateral: CTA - Cardiovascular Heart Sounds: Present: S1 & S2. Absent: rub, click - Extremities Extremities: pulses symmetrical, No edema Extremity abnormal: ulceration, erythema, pulses diminished, other Peripheral Pulses: within normal limits - Abdominal General gastrointestinal: Present: soft, non-tender, non-distended, normal bowel sounds Female genitourinary: Present: normal - Integumentary Integumentary: Present: clear, dry - Musculoskeletal Musculoskeletal: generalized weakness - Psychiatric Psychiatric: appropriate mood/affect, intact judgment & insight - Neurologic Neurologic: CNII-XII intact, moves all extremities Results - Labs CBC & Chem 7: 02/16/19 13:54 02/16/19 13:54 Labs: Abnormal lab results 02/16/19 02/16/19 02/16/19 Range/Units 13:54 13:54 13:54 WBC 20.8 H (4.5-11.0) K/mm3 Hgb 8.8 L (10.1-14.3) gm/dl Hct 29.5 L (30.3-42.9) % MCV 74 L (79-97) fl MCH 22 L (28-32) pg RDW 18.9 H (13.2-15.2) % Seg Neuts % (Manual) 88.0 H (40.0-70.0) % Lymphocytes % (Manual) 7.0 L (13.4-35.0) % Nucleated RBC % 3.0 H (0.0-0.9) % Seg Neutrophils # Man 18.3 H (1.8-7.7) K/mm3 APTT 23.5 L (24.2-36.6) Sec. Sodium 136 L (137-145) mmol/L Chloride 92.3 L (98-107) mmol/L BUN 46 H (7-17) mg/dL Creatinine 5.4 H (0.7-1.2) mg/dL Glucose 225 H (65-100) mg/dL Lactic Acid (0.7-2.0) mmol/L AST 41 H (5-40) units/L Alkaline Phosphatase 252 H (35-129) units/L Albumin 2.9 L (3.9-5) g/dL 02/16/19 Range/Units 15:40 WBC (4.5-11.0) K/mm3 Hgb (10.1-14.3) gm/dl Hct (30.3-42.9) % MCV (79-97) fl MCH (28-32) pg RDW (13.2-15.2) % Seg Neuts % (Manual) (40.0-70.0) % Lymphocytes % (Manual) (13.4-35.0) % Nucleated RBC % (0.0-0.9) % Seg Neutrophils # Man (1.8-7.7) K/mm3 APTT (24.2-36.6) Sec. Sodium (137-145) mmol/L Chloride (98-107) mmol/L BUN (7-17) mg/dL Creatinine (0.7-1.2) mg/dL Glucose (65-100) mg/dL Lactic Acid 2.30 H* (0.7-2.0) mmol/L AST (5-40) units/L Alkaline Phosphatase (35-129) units/L Albumin (3.9-5) g/dL Assessment and Plan - Patient Problems (1) Sepsis Current Visit: Yes Status: Acute Qualifiers: Sepsis type: sepsis due to unspecified organism Qualified Code(s): A41.9 - Sepsis, unspecified organism Plan to address problem: Sepsis protocol: Admit to IMCU, IVF resuscitation as tolerated, serial lactic acid, monitor uop q shift, CBC, CMP, Urinalysis, Blood Culture, Chest x ray. (2) ESRD (end stage renal disease) Current Visit: Yes Status: Acute Plan to address problem: Nephrology consulted in ED for dialysis, monitor uop q shift, avoid nephrotoxic agents (3) Gangrene of toe of right foot Current Visit: Yes Status: Acute Plan to address problem: Pending amputation as per surgical team, supportive care, dressing intact, (4) Metabolic acidosis Current Visit: No Status: Chronic Plan to address problem: IVF resuscitation therapy, IVF resuscitation, repeat bmp (5) Arthritis Current Visit: Yes Status: Acute Plan to address problem: Pain control, early ambulation, (6) GERD (gastroesophageal reflux disease) Current Visit: Yes Status: Acute Qualifiers: Esophagitis presence: without esophagitis Qualified Code(s): K21.9 - Gastro-esophageal reflux disease without esophagitis Plan to address problem: PPI therpay (7) CHF (congestive heart failure) Current Visit: Yes Status: Acute Plan to address problem: Strict I/O, daily weight, monitor uop q shift, afterload reduction, continue prehospital medication, chest x ray, (8) DVT prophylaxis Current Visit: Yes Status: Acute Plan to address problem: SCD to BLE while in bed,
[2019-02-16] MEDS ORDERED: PROVENTIL IH PRN (16:32)
[2019-02-16] MEDS ORDERED: VANCOMYCIN 1,250 MG in NACL 0.9% 500 ML 500 ML IV ONE (16:33)
[2019-02-16] MEDS ORDERED: D50W (25GM) Syringe IV PRN (16:35)
[2019-02-16] MEDS: PERCOCET 5/325 PO PRN (16:53)
[2019-02-16] MEDS ORDERED: VANCOMYCIN PHARMACY TO DOSE IV SCH (17:00)
--- NOTE | 2019-02-16 17:49 | XRay Report ---
PROCEDURE: XR FOOT 1V RT TECHNIQUE: Frontal view right foot HISTORY: pain COMPARISONS: X-ray right foot dated December 01, 2018 and MRI right foot dated December 03, 2018 FINDINGS: The bony structures are osteopenic. There is previous amputation of the third digit at the level of the distal diaphysis of the metatarsa l. There is the appearance of interval development of lytic change of the distal metaphysis and epiphysi s of the second and fourth metatarsals in the adjacent proximal phalanges. There appear to be fractures of the proximal epiphysis and metaphysis of the proximal phalanges of th e second and fourth digits. There is soft tissue swelling of the foot. IMPRESSION: 1. Interval development of lytic change involving the second and fourth distal metatarsals and proxim al phalanges with the appearance of fractures of proximal phalanges. This is new since the previous s tudi. MRI may be helpful for further evaluation. 2. Third ray amputation at the level of the distal diaphysis of the third metatarsal. This document is electronically signed by Josie Snider MD., February 16 2019 05:46:46 PM ET
[2019-02-16] MEDS ORDERED: ceFAZolin 2 GM in NACL 0.9% 100 ML IV SCH (22:00)
[2019-02-16] MEDS ORDERED: ANCEF/NS 1 GM/50 ML 1 GM/50 ML BAG IV SCH (22:00)
[2019-02-16] MEDS ORDERED: NON-FORMULARY (Ranitidine Hcl [Zantac] 300 MG) PO SCH (22:00)
[2019-02-16] MEDS: PEPCID PO SCH (22:37)
[2019-02-16] MEDS: SODIUM CHLORIDE FLUSH SYRINGE 10 ML IV SCH (22:38)
[2019-02-17] MEDS: HumaLOG SUB-Q SCH ×5 (00:11→23:50)
[2019-02-17] MEDS: PERCOCET 5/325 PO PRN ×3 (03:55→19:53)
--- NOTE | 2019-02-17 08:20 | Consultation ---
History of Present Illness - Reason for Consult Consult date: 02/17/19 end stage renal disease - History of Present Illness This patient is a 78 YO female who is well known to our service with medical history significant for DM type 2, HTN, legally blind, ESRD on HD (TTS), Anemia 2/2 ESRD, CVA, GILBERTO on CPAP, Hypthyroidism, s/p amputation of gangrenous infected right 3rd toe (11/26/18) and chronic osteomyelitis of R foot who presented to [facility] ED with c/o pain in her right foot. Pt is a poor historian. She stated that her pain was 4-6/10, constant and not currently controlled with home medi cation. Pt seen and evaluated in ED and found to have Sepsis secondary to RLE Gangrene. On admission WBC was 20.8. Nephrology was consulted to manage ESRD. Patient was last dialyzed 3 days ago. Past History Past Medical History: diabetes, ESRD, GERD, heart failure, hypertension, hypothyroidism, other (Legally blind) Past Surgical History: cholecystectomy, Other (toe surgery) Medications and Allergies Allergies Allergy/AdvReac Type Severity Reaction Status Date / Time Iodinated Contrast- Oral and Allergy Hives, Rash Verified 11/25/18 15:48 IV Dye Penicillins Allergy Hives Verified 11/25/18 15:48 Home Medications Medication Instructions Recorded Confirmed Last Taken Type B Complex 11/Folic/C/Biot/Zinc 1 each PO DAILY 09/06/15 02/16/19 11/25/18 20:00 History [Dialyvite with Zinc Tablet] Lispro Insulin [Humalog] 7 unit SQ AC 11/25/18 02/16/19 Unknown History Pantoprazole Sodium 40 mg PO DAILY 11/25/18 02/16/19 11/26/18 05:00 History amLODIPine [Norvasc] 5 mg PO DAILY 11/25/18 02/16/19 11/28/18 History 2.5 Ranitidine HCl [Zantac] 300 mg PO BID 02/16/19 02/16/19 Unknown History Calcium Acetate 667 mg PO AC 02/18/19 02/18/19 Unknown History Levothyroxine 0.05 mg PO QDAY 02/18/19 02/18/19 Unknown History Lyrica 75 mg PO HS 02/18/19 02/18/19 Unknown History Meloxicam 7.5 mg PO QDAY 02/18/19 02/18/19 Unknown History Pravastatin 40 mg PO HS 02/18/19 02/18/19 Unknown History Zetia 10 mg PO 02/18/19 02/18/19 Unknown History Active Meds: Active Medications Albuterol (Proventil) 2.5 mg IH Q3HRT PRN PRN Reason: Shortness Of Breath Amlodipine Besylate (Norvasc) 5 mg PO DAILY [facility] Dextrose (D50w (25gm) Syringe) 50 ml IV PRN PRN PRN Reason: Hypoglycemia Famotidine (Pepcid) 10 mg PO BID [facility] Last Admin: 02/16/19 22:37 Dose: 10 mg Documented by: Cefazolin Sodium (Ancef/Ns 1 Gm/50 Ml) 1 gm in 50 mls @ 100 mls/hr IV Q24H [facility] Insulin Human Lispro (Humalog) 0 unit SUB-Q Q6HR [facility]; Protocol Last Admin: 02/17/19 07:32 Dose: Not Given Documented by: Multivit/Ca Carb/B Cmplx/FA/Prenat (Renal Caps) 1 cap PO QDAY [facility] Oxycodone/Acetaminophen (Percocet 5/325) 1 tab PO Q6H PRN PRN Reason: Pain, Moderate (4-6) Last Admin: 02/17/19 03:55 Dose: 1 tab Documented by: Sodium Chloride (Sodium Chloride Flush Syringe 10 Ml) 10 ml IV BID [facility] Last Admin: 02/16/19 22:38 Dose: 10 ml Documented by: Sodium Chloride (Sodium Chloride Flush Syringe 10 Ml) 10 ml IV PRN PRN PRN Reason: LINE FLUSH Review of Systems Constitutional: no weight loss, no weight gain, no fever Breasts: deferred Cardiovascular: edema, high blood pressure, leg edema, no chest pain, no orthopnea, no syncope, no lightheadedness, no shortness of breath Respiratory: no cough, no shortness of breath Gastrointestinal: no abdominal pain, no nausea, no vomiting, no diarrhea Genitourinary Female: no dysuria, no hematuria Rectal: no bleeding Integumentary: wounds (R foot) Neurological: loss of vision, no paralysis, no convulsions, no aphasia, no change in speech Exam - Vital Signs Vital signs: Vital Signs Pulse Ox 84 02/16/19 12:16 - General Appearance General appearance: well-developed, appears stated age, other (not in distress) EENT: ATNC, other (pupils are equal) Neck: Present: neck supple, trachea midline Respiratory: Clear to Ascultation Heart: regular, S1S2, no murmurs Gastrointestinal: Present: normoactive bowel sounds. Absent: tenderness, distended Integumentary: ulcer (R foot dressing noted) Neurologic: no asterixis, other (decreased vision) Musculoskeletal: Present: other (R foot dressing, L arm AVF) Results - Lab Results 02/18/19 05:32 02/18/19 05:32 Most recent lab results Calcium 8.6 mg/dL (8.4-10.2) 02/16/19 13:54 Assessment and Plan 1. ESRD: Continue hemodialysis three times a week, TTS schedule. HD today. 2. Sepsis: 2/2 to right LE cellulitis. S/p recent amputation of right 3rd toe. 3. Anemia: Epogen with HD. 4. GILBERTO: CPAP. 5. DM type 2. 6. HTN.
[2019-02-17] MEDS: PEPCID PO SCH ×2 (09:24→21:30)
[2019-02-17] MEDS: NORVASC PO SCH (09:24)
[2019-02-17] MEDS: SODIUM CHLORIDE FLUSH SYRINGE 10 ML IV SCH ×2 (09:25→21:30)
[2019-02-17] MEDS ORDERED: NON-FORMULARY (B Complex 11/Folic/C/Biot/Zinc [Dialyvite With Zinc Tablet] 1 EACH) PO SCH (10:00)
[2019-02-17] MEDS ORDERED: PROTONIX PO SCH (10:00)
--- NOTE | 2019-02-17 10:02 | Consultation ---
History of Present Illness Consult date: 02/17/19 Chief complaint: Diabetic right foot infection - History of present illness History of present illness: 78 yo diabetic female [facility] related to a severe right foot infection. She has been receiving HBOT. I have recommended right BKA/AKA in the past but up to this point, the pt and her daughter have refused. Pt was brought to the ED yesterday b/o increased pain and drainage of her right foot. Past History Past Medical History: diabetes, ESRD, GERD, heart failure, hypertension, hypothyroidism Past Surgical History: cholecystectomy, Other (toe surgery) Medications and Allergies Allergies Allergy/AdvReac Type Severity Reaction Status Date / Time Iodinated Contrast- Oral and Allergy Hives, Rash Verified 11/25/18 15:48 IV Dye Penicillins Allergy Hives Verified 11/25/18 15:48 Home Medications Medication Instructions Recorded Confirmed Last Taken Type B Complex 11/Folic/C/Biot/Zinc 1 each PO DAILY 09/06/15 02/16/19 11/25/18 20:00 History [Dialyvite with Zinc Tablet] Lispro Insulin [Humalog] 7 unit SQ AC 11/25/18 02/16/19 Unknown History Pantoprazole Sodium 40 mg PO DAILY 11/25/18 02/16/19 11/26/18 05:00 History amLODIPine [Norvasc] 5 mg PO DAILY 11/25/18 02/16/19 11/28/18 History 2.5 Ranitidine HCl [Zantac] 300 mg PO BID 02/16/19 02/16/19 Unknown History Active Meds: Active Medications Albuterol (Proventil) 2.5 mg IH Q3HRT PRN PRN Reason: Shortness Of Breath Amlodipine Besylate (Norvasc) 5 mg PO DAILY [facility] Last Admin: 02/17/19 09:24 Dose: 5 mg Documented by: Dextrose (D50w (25gm) Syringe) 50 ml IV PRN PRN PRN Reason: Hypoglycemia Famotidine (Pepcid) 10 mg PO BID [facility] Last Admin: 02/17/19 09:24 Dose: 10 mg Documented by: Cefazolin Sodium (Ancef/Ns 1 Gm/50 Ml) 1 gm in 50 mls @ 100 mls/hr IV Q24H [facility] Insulin Human Lispro (Humalog) 0 unit SUB-Q Q6HR [facility]; Protocol Last Admin: 02/17/19 07:32 Dose: Not Given Documented by: Multivit/Ca Carb/B Cmplx/FA/Prenat (Renal Caps) 1 cap PO QDAY [facility] Oxycodone/Acetaminophen (Percocet 5/325) 1 tab PO Q6H PRN PRN Reason: Pain, Moderate (4-6) Last Admin: 02/17/19 09:10 Dose: 1 tab Documented by: Sodium Chloride (Sodium Chloride Flush Syringe 10 Ml) 10 ml IV BID [facility] Last Admin: 02/17/19 09:25 Dose: 10 ml Documented by: Sodium Chloride (Sodium Chloride Flush Syringe 10 Ml) 10 ml IV PRN PRN PRN Reason: LINE FLUSH Review of Systems All systems: negative (none) Exam Vital Signs Pulse Ox 84 02/16/19 12:16 - General physical appearance Positive: well developed, well nourished, no distress - Eyes Positive: PERRL, normal occular movement - ENT Positive: normal pinna, normal nares, normal mucosa, no hearing loss, no congestion - Neck Positive: no masses, no bruits, trachea midline, no venous distension - Respiratory Positive: normal expansion, normal respiratory effort, clear to auscultation - Cardiovascular Rhythm: regular Heart Sounds: Present: S1 & S2. Absent: rub, click - Extremities Extremities: abnormal (Right distal foot ulceration (at site of previous TMA) and two dorsal ulcerations are noted. There is a small amount of purulent drainage associated with these wounds. There is no obvious abscess present. ) - Breasts Breasts: deferred - Abdomen Abdomen: Present: soft, bowel sounds normal. Absent: tender, distended Hernia: none - Genitourinary Female Genitourinary: deferred - Neurologic Neurologic: alert and oriented to time, place and person, motor strength and sensation are grossly intact - Psychiatric Psychiatric: appropriate mood/affect, intact judgment & insight Results - Labs 02/16/19 13:54 02/16/19 13:54 Abnormal lab results 02/16/19 02/16/19 02/16/19 Range/Units 13:54 13:54 13:54 WBC 20.8 H (4.5-11.0) K/mm3 Hgb 8.8 L (10.1-14.3) gm/dl Hct 29.5 L (30.3-42.9) % MCV 74 L (79-97) fl MCH 22 L (28-32) pg RDW 18.9 H (13.2-15.2) % Seg Neuts % (Manual) 88.0 H (40.0-70.0) % Lymphocytes % (Manual) 7.0 L (13.4-35.0) % Nucleated RBC % 3.0 H (0.0-0.9) % Seg Neutrophils # Man 18.3 H (1.8-7.7) K/mm3 APTT 23.5 L (24.2-36.6) Sec. Sodium 136 L (137-145) mmol/L Chloride 92.3 L (98-107) mmol/L BUN 46 H (7-17) mg/dL Creatinine 5.4 H (0.7-1.2) mg/dL Glucose 225 H (65-100) mg/dL POC Glucose (70-105) Lactic Acid (0.7-2.0) mmol/L AST 41 H (5-40) units/L Alkaline Phosphatase 252 H (35-129) units/L Albumin 2.9 L (3.9-5) g/dL 02/16/19 02/16/19/ Range/Units 15:40 16:15 17:39 WBC (4.5-11.0) K/mm3 Hgb (10.1-14.3) gm/dl Hct (30.3-42.9) % MCV (79-97) fl MCH (28-32) pg RDW (13.2-15.2) % Seg Neuts % (Manual) (40.0-70.0) % Lymphocytes % (Manual) (13.4-35.0) % Nucleated RBC % (0.0-0.9) % Seg Neutrophils # Man (1.8-7.7) K/mm3 APTT (24.2-36.6) Sec. Sodium (137-145) mmol/L Chloride (98-107) mmol/L BUN (7-17) mg/dL Creatinine (0.7-1.2) mg/dL Glucose (65-100) mg/dL POC Glucose (70-105) Lactic Acid 2.30 H* 2.10 H* 0.60 L (0.7-2.0) mmol/L AST (5-40) units/L Alkaline Phosphatase (35-129) units/L Albumin (3.9-5) g/dL 02/16/19 02/17/19 02/17/19 Range/Units 23:57 05:33 08:44 WBC (4.5-11.0) K/mm3 Hgb (10.1-14.3) gm/dl Hct (30.3-42.9) % MCV (79-97) fl MCH (28-32) pg RDW (13.2-15.2) % Seg Neuts % (Manual) (40.0-70.0) % Lymphocytes % (Manual) (13.4-35.0) % Nucleated RBC % (0.0-0.9) % Seg Neutrophils # Man (1.8-7.7) K/mm3 APTT (24.2-36.6) Sec. Sodium (137-145) mmol/L Chloride (98-107) mmol/L BUN (7-17) mg/dL Creatinine (0.7-1.2) mg/dL Glucose (65-100) mg/dL POC Glucose 309 H 109 H 151 H (70-105) Lactic Acid (0.7-2.0) mmol/L AST (5-40) units/L Alkaline Phosphatase (35-129) units/L Albumin (3.9-5) g/dL Diabetes panel 02/16/19 Range/Units 13:54 Sodium 136 L (137-145) mmol/L Potassium 3.7 (3.6-5.0) mmol/L Chloride 92.3 L (98-107) mmol/L Carbon Dioxide 23 (22-30) mmol/L BUN 46 H (7-17) mg/dL Creatinine 5.4 H (0.7-1.2) mg/dL Glucose 225 H (65-100) mg/dL Calcium 8.6 (8.4-10.2) mg/dL AST 41 H (5-40) units/L ALT 25 (7-56) units/L Alkaline Phosphatase 252 H (35-129) units/L Total Protein 7.3 (6.3-8.2) g/dL Albumin 2.9 L (3.9-5) g/dL Calcium panel 02/16/19 Range/Units 13:54 Calcium 8.6 (8.4-10.2) mg/dL Albumin 2.9 L (3.9-5) g/dL Pituitary panel 02/16/19 Range/Units 13:54 Sodium 136 L (137-145) mmol/L Potassium 3.7 (3.6-5.0) mmol/L Chloride 92.3 L (98-107) mmol/L Carbon Dioxide 23 (22-30) mmol/L BUN 46 H (7-17) mg/dL Creatinine 5.4 H (0.7-1.2) mg/dL Glucose 225 H (65-100) mg/dL Calcium 8.6 (8.4-10.2) mg/dL Adrenal panel 02/16/19 Range/Units 13:54 Sodium 136 L (137-145) mmol/L Potassium 3.7 (3.6-5.0) mmol/L Chloride 92.3 L (98-107) mmol/L Carbon Dioxide 23 (22-30) mmol/L BUN 46 H (7-17) mg/dL Creatinine 5.4 H (0.7-1.2) mg/dL Glucose 225 H (65-100) mg/dL Calcium 8.6 (8.4-10.2) mg/dL Total Bilirubin 0.40 (0.1-1.2) mg/dL AST 41 H (5-40) units/L ALT 25 (7-56) units/L Alkaline Phosphatase 252 H (35-129) units/L Total Protein 7.3 (6.3-8.2) g/dL Albumin 2.9 L (3.9-5) g/dL - Imaging Additional studies: CXR of 02/16/19 - See report. Assessment and Plan - Patient Problems (1) Diabetic infection of right foot Current Visit: No Status: Acute Plan to address problem: 1) ID consult 2) Check UA 3) HD today 4) I have discussed this pt with Dr. Jiang, Vascular surgeon. He plans on performing a RLE angiogram tomorrow to assess whether a right BKA will likely he al or not. If not, a right AKA will be necessary. 5) Pt is tentatively on the OR schedule for a right BKA on 02/19/19.
[2019-02-17] MEDS: Renal Caps PO SCH (10:42)
[2019-02-17 11:23] LABS: Hematocrit 23.5 % (30.3-42.9); Hemoglobin 7.4 gm/dl (10.1-14.3); Mean Corpuscular HGB Conc 31 % (30-34); Mean Corpuscular Volume 72 fl (79-97); Platelet Count 287 K/mm3 (140-440); Red Blood Count 3.27 M/mm3 (3.65-5.03); Red Cell Distribution Width 18.6 % (13.2-15.2)
[2019-02-17] MEDS ORDERED: NACL 0.9% 100 ML IV PRN (14:18)
--- NOTE | 2019-02-17 16:22 | Progress Note ---
Assessment and Plan Assessment and plan: 78 YO Female with ESRD on HD (T,Thur,Sa), RLE gangrene pending amputation, GERD, HTN, Hypothyroidism, Diastolic CHF presents to ED for evaluation. Pt states that she has experienced pain in her right foot. Pt states that her pain is 4-6/10, constant, and not currently controlled by current medication. EMS notified and upon arrival the patient was found to be in distress. Pt transported to [facility]. Pt seen and evaluated in ED and found to have Sepsis secondary to RLE Gangrene, ESRD, and Acidosis. Surgery consulted in ED, Nephrology consulted in ED. Pt admitted to [facility]. Daughter acknowledges understanding and agreement with care plan. Prior admission on 11/29/18 reviewed. All listed medication reconciled at time of admission. Right lower extremity gangrene - Dr. Munoz is following the patient - Patient will get 2 units of blood today, and when hemodialysis tomorrow and will have outpatient on Saturday Sepsis, with staph aureus bacteremia - Patient is on IV vancomycin, sensitivities pending - ID consult appreciated End-stage renal disease on hemodialysis - Continue dialysis as scheduled Peripheral arterial disease - Vascular surgery consulted - Did angiogram -Impression: 1) Aortography and right lower extremity angiography demonstrating 70% SFA stenosis in the mid to distal portion, complete occlusion of the posterior tibial artery and long segment occlusion of the anterior tibial artery with perineal runoff to the foot. 2) Treatment of the SFA lesion with angioplasty and drug coated balloon with residual less than 10% stenosis. 3: Treatment of the anterior tibial artery with atherectomy and angioplasty with residual attended 20% stenosis DVT prophylaxis; heparin was held for the procedure. Disposition; continue inpatient care History Interval history: Patient was seen and evaluated this morning at the bedside, patient said pain in her legs is getting better. Hospitalist Physical - Physical exam Narrative exam: Not in cardiopulmonary distress. The patient appeared well nourished and normally developed. Vital signs as documented. Head exam is unremarkable. No scleral icterus . Neck is without jugular venous distension, thyromegaly, or carotid bruits. Lungs are clear to auscultation. Cardiac exam reveals regular rate and Rhythm. Abdominal exam reveals normal bowel sounds, no masses, no organomegaly and no aortic enlargement. Extremities clean dressing in the right foot. 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 No focal weakness. - Constitutional Vitals: Temp Pulse Resp BP Pulse Ox 98.8 F 72 18 120/52 96 02/17/19 08:00 02/16/19 22:00 02/17/19 08:00 02/16/19 17:30 02/17/19 08:00 General appearance: Present: mild distress Results - Labs CBC & Chem 7: 02/18/19 05:32 02/18/19 05:32 Labs: Laboratory Last Values WBC 19.9 K/mm3 (4.5-11.0) H 02/17/19 10:45 RBC 3.27 M/mm3 (3.65-5.03) L 02/17/19 10:45 Hgb 7.4 gm/dl (10.1-14.3) L 02/17/19 10:45 Hct 23.5 % (30.3-42.9) L D 02/17/19 10:45 MCV 72 fl (79-97) L 02/17/19 10:45 MCH 23 pg (28-32) L 02/17/19 10:45 MCHC 31 % (30-34) 02/17/19 10:45 RDW 18.6 % (13.2-15.2) H 02/17/19 10:45 Plt Count 287 K/mm3 (140-440) 02/17/19 10:45 Add Manual Diff Complete 02/16/19 13:54 Total Counted 100 02/16/19 13:54 Seg Neuts % (Manual) 88.0 % (40.0-70.0) H 02/16/19 13:54 1.0 % 02/16/19 13:54 7.0 % (13.4-35.0) L 02/16/19 13:54 Reactive Lymphs % (Man) 0 % 02/16/19 13:54 3.0 % (0.0-7.3) 02/16/19 13:54 1.0 % (0.0-4.3) 02/16/19 13:54 0 % (0.0-1.8) 02/16/19 13:54 0 % 02/16/19 13:54 0 % 02/16/19 13:54 0 % 02/16/19 13:54 0 % 02/16/19 13:54 Nucleated RBC % 3.0 % (0.0-0.9) H 02/16/19 13:54 Seg Neutrophils # Man 18.3 K/mm3 (1.8-7.7) H 02/16/19 13:54 Band Neutrophils # 0.2 K/mm3 02/16/19 13:54 1.5 K/mm3 (1.2-5.4) 02/16/19 13:54 Abs React Lymphs (Man) 0.0 K/mm3 02/16/19 13:54 0.6 K/mm3 (0.0-0.8) 02/16/19 13:54 0.2 K/mm3 (0.0-0.4) 02/16/19 13:54 0.0 K/mm3 (0.0-0.1) 02/16/19 13:54 0.0 K/mm3 02/16/19 13:54 0.0 K/mm3 02/16/19 13:54 0.0 K/mm3 02/16/19 13:54 Blast Cells # 0.0 K/mm3 02/16/19 13:54 WBC Morphology Not Reportable 02/16/19 13:54 Hypersegmented Neuts Not Reportable 02/16/19 13:54 Hyposegmented Neuts Not Reportable 02/16/19 13:54 Hypogranular Neuts Not Reportable 02/16/19 13:54 Not Reportable 02/16/19 13:54 Not Reportable 02/16/19 13:54 Not Reportable 02/16/19 13:54 Not Reportable 02/16/19 13:54 Not Reportable 02/16/19 13:54 Not Reportable 02/16/19 13:54 Consistent w auto 02/16/19 13:54 Not Reportable 02/16/19 13:54 Plt Clumps, EDTA Not Reportable 02/16/19 13:54 Not Reportable 02/16/19 13:54 Not Reportable 02/16/19 13:54 Not Reportable 02/16/19 13:54 Plt Morphology Comment Not Reportable 02/16/19 13:54 RBC Morphology Not Reportable 02/16/19 13:54 Dimorphic RBCs Not Reportable 02/16/19 13:54 Rare 02/16/19 13:54 2+ 02/16/19 13:54 1+ 02/16/19 13:54 1+ 02/16/19 13:54 Not Reportable 02/16/19 13:54 Not Reportable 02/16/19 13:54 Not Reportable 02/16/19 13:54 Not Reportable 02/16/19 13:54 Not Reportable 02/16/19 13:54 Rare 02/16/19 13:54 Rare 02/16/19 13:54 Few 02/16/19 13:54 Not Reportable 02/16/19 13:54 Not Reportable 02/16/19 13:54 Not Reportable 02/16/19 13:54 Not Reportable 02/16/19 13:54 Not Reportable 02/16/19 13:54 Not Reportable 02/16/19 13:54 1+ 02/16/19 13:54 Acanthocytes (Spur) Not Reportable 02/16/19 13:54 Rouleaux Not Reportable 02/16/19 13:54 Not Reportable 02/16/19 13:54 Not Reportable 02/16/19 13:54 Not Reportable 02/16/19 13:54 Not Reportable 02/16/19 13:54 Hem Pathologist Commnt No 02/16/19 13:54 APTT 23.5 Sec. (24.2-36.6) L 02/16/19 13:54 Sodium 136 mmol/L (137-145) L 02/16/19 13:54 Potassium 3.7 mmol/L (3.6-5.0) 02/16/19 13:54 Chloride 92.3 mmol/L (98-107) L 02/16/19 13:54 Carbon Dioxide 23 mmol/L (22-30) 02/16/19 13:54 24 mmol/L 02/16/19 13:54 BUN 46 mg/dL (7-17) H 02/16/19 13:54 5.4 mg/dL (0.7-1.2) H 02/16/19 13:54 Estimated GFR 9 ml/min 02/16/19 13:54 9 % 02/16/19 13:54 Glucose 225 mg/dL (65-100) H 02/16/19 13:54 POC Glucose 240 (70-105) H 02/17/19 11:41 Lactic Acid 1.80 mmol/L (0.7-2.0) 02/16/19 Unknown Calcium 8.6 mg/dL (8.4-10.2) 02/16/19 13:54 0.40 mg/dL (0.1-1.2) 02/16/19 13:54 AST 41 units/L (5-40) H 02/16/19 13:54 ALT 25 units/L (7-56) 02/16/19 13:54 252 units/L (35-129) H 02/16/19 13:54 7.3 g/dL (6.3-8.2) 02/16/19 13:54 2.9 g/dL (3.9-5) L 02/16/19 13:54 0.7 % 02/16/19 13:54 Active Medications - Current Medications Current Medications: Generic Name Dose Route Start Last Admin Trade Name Freq PRN Reason Stop Dose Admin Albuterol 2.5 mg 02/16/19 16:32 Proventil IH Q3HRT PRN Shortness Of Breath Amlodipine Besylate 5 mg 02/17/19 10:00 02/17/19 09:24 Norvasc PO 5 mg DAILY [facility] Administration Dextrose 50 ml 02/16/19 16:35 D50w (25gm) Syringe IV PRN PRN Hypoglycemia Epoetin [place] 20,000 unit 02/17/19 14:18 Procrit SUB-Q ANNI PRN hemodialysis Famotidine 10 mg 02/16/19 22:00 02/17/19 09:24 Pepcid PO 10 mg BID [facility] Administration Cefazolin Sodium 1 gm in 50 mls @ 100 mls/hr 02/17/19 22:00 Ancef/Ns 1 Gm/50 Ml IV Q24H [facility] Sodium Chloride 100 mls @ 999 mls/hr 02/17/19 14:18 Nacl 0.9% IV ANNI PRN Hypotension Insulin Human Lispro 0 unit 02/16/19 18:00 02/17/19 07:32 Humalog SUB-Q Not Given Q6HR [facility] Protocol Multivit/Ca Carb/B Cmplx/FA/Prenat 1 cap 02/17/19 10:00 Renal Caps PO QDAY [facility] Oxycodone/Acetaminophen 1 tab 02/16/19 16:32 02/17/19 09:10 Percocet 5/325 PO 1 tab Q6H PRN Administration Pain, Moderate (4-6) Sodium Chloride 10 ml 02/16/19 22:00 02/17/19 09:25 Sodium Chloride Flush Syringe 10 Ml IV 10 ml BID [facility] Administration Sodium Chloride 10 ml 02/16/19 16:32 Sodium Chloride Flush Syringe 10 Ml IV PRN PRN LINE FLUSH Nutrition/Malnutrition Assess - Dietary Evaluation Nutrition/Malnutrition Findings: Nutrition Notes Start: 02/17/19 16:06 Freq: Status: Active Protocol: Document 02/17/19 16:06 RM (Rec: 02/17/19 16:08 RM [id number]) Nutrition Notes Need for Assessment generated from: material preparation worker,MST Initial or Follow up Assessment Current Diagnosis Sepsis,Hypertension,Heart Failure Other Pertinent Diagnosis ESRD on HD (T/R/S), GERD, Gangrene of toe of R foot Current Diet Renal Labs/Tests Reviewed Pertinent Medications Reviewed Height 5 ft 3 in Weight 64.4 kg Usual Body Weight 63 kg [place] Body Weight (kg) 52.27 BMI 25.1 Subjective/Other Information Screened for malnutrition and skin risk. Jd 11 points. 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 Stated that her appetite is poor now. Noted breakfast at bedside w/ 25% eaten. Stated dry wt is 63 kg. No temporal or orbital wasting . Percent of energy/protein needs met: 40%/25% Burn Absent Trauma Absent Nutrition Diagnosis Inadequate oral intake Etiology decreased appetite As Evidenced by Signs and Symptoms breakfast at bedside w/25% eaten Is patient on ventilator? No Is Patient Ambulatory and/or Out of Bed No REE-([facility]-confined to bed) 1324.368 Calculation Used for Recommendations [facility] Additional Notes Protein Needs: 77-97g (1.2-1. 5g/kg) Fluid Needs: 1 ml/kcal Nutrition Intervention Change Diet Order: Continue current Add Supplement/Snack (indicate name/kcal Nepro 1 daily /protein ) Provides kCal: 425 Provides Protein (gm) 19 Goal #1 Meet at least 75% of calorie and protein needs via PO and ONS intakes Anticipated Discharge Needs: Renal diet Follow-Up By: 02/20/19 Additional Comments Follow for PO and ONS intakes
--- NOTE | 2019-02-17 16:38 | Consultation ---
History of Present Illness - Reason for Consult Consult date: 02/17/19 Non-healing right foot wounds - History of Present Illness Patient with a history of end-stage renal disease on hemodialysis. She now presents with chronic nonhealing wounds in her right foot prior to undergoing planned surgical procedure with Dr. Munoz. Patient currently on dialysis at time of examination. Her lower leg is warm to the ankle with a bandage wrapping the foot. There is nonpalpable popliteal artery. Sequela of venous insufficiency as well with hemosiderin staining and a minimal amount of edema. Past History Past Medical History: diabetes, ESRD, GERD, heart failure, hypertension, hypothyroidism, PVD Past Surgical History: cholecystectomy, Other (toe surgery) Medications and Allergies Allergies Allergy/AdvReac Type Severity Reaction Status Date / Time Iodinated Contrast- Oral and Allergy Hives, Rash Verified 11/25/18 15:48 IV Dye Penicillins Allergy Hives Verified 11/25/18 15:48 Home Medications Medication Instructions Recorded Confirmed Last Taken Type B Complex 11/Folic/C/Biot/Zinc 1 each PO DAILY 09/06/15 02/16/19 11/25/18 20:00 History [Dialyvite with Zinc Tablet] Lispro Insulin [Humalog] 7 unit SQ AC 11/25/18 02/16/19 Unknown History Pantoprazole Sodium 40 mg PO DAILY 11/25/18 02/16/19 11/26/18 05:00 History amLODIPine [Norvasc] 5 mg PO DAILY 11/25/18 02/16/19 11/28/18 History 2.5 Ranitidine HCl [Zantac] 300 mg PO BID 02/16/19 02/16/19 Unknown History Active Meds: Active Medications Albuterol (Proventil) 2.5 mg IH Q3HRT PRN PRN Reason: Shortness Of Breath Amlodipine Besylate (Norvasc) 5 mg PO DAILY [facility] Last Admin: 02/17/19 09:24 Dose: 5 mg Documented by: Dextrose (D50w (25gm) Syringe) 50 ml IV PRN PRN PRN Reason: Hypoglycemia Epoetin Quincy (Procrit) 20,000 unit SUB-Q ANNI PRN PRN Reason: hemodialysis Famotidine (Pepcid) 10 mg PO BID [facility] Last Admin: 02/17/19 09:24 Dose: 10 mg Documented by: Cefazolin Sodium (Ancef/Ns 1 Gm/50 Ml) 1 gm in 50 mls @ 100 mls/hr IV Q24H [facility] Sodium Chloride (Nacl 0.9%) 100 mls @ 999 mls/hr IV ANNI PRN PRN Reason: Hypotension Insulin Human Lispro (Humalog) 0 unit SUB-Q Q6HR [facility]; Protocol Last Admin: 02/17/19 07:32 Dose: Not Given Documented by: Multivit/Ca Carb/B Cmplx/FA/Prenat (Renal Caps) 1 cap PO QDAY [facility] Oxycodone/Acetaminophen (Percocet 5/325) 1 tab PO Q6H PRN PRN Reason: Pain, Moderate (4-6) Last Admin: 02/17/19 09:10 Dose: 1 tab Documented by: Sodium Chloride (Sodium Chloride Flush Syringe 10 Ml) 10 ml IV BID [facility] Last Admin: 02/17/19 09:25 Dose: 10 ml Documented by: Sodium Chloride (Sodium Chloride Flush Syringe 10 Ml) 10 ml IV PRN PRN PRN Reason: LINE FLUSH Review of Systems ROS unobtainable: due to mental status Exam - Constitutional Vitals: Temp Pulse Resp BP Pulse Ox 98.8 F 72 18 120/52 96 02/17/19 08:00 02/16/19 22:00 02/17/19 08:00 02/16/19 17:30 02/17/19 08:00 General appearance: Present: no acute distress - EENT Eyes: Present: EOM intact ENT: hearing intact - Neck Neck: Present: supple, normal ROM - Respiratory Respiratory effort: normal - Extremities Extremities: abnormal Extremity abnormal: edema - Abdominal General gastrointestinal: Present: deferred Female genitourinary: Present: deferred - Rectal Rectal Exam: deferred - Psychiatric Psychiatric: cooperative Results - Labs CBC & Chem 7: 02/17/19 10:45 02/16/19 13:54 Labs: Abnormal lab results 02/16/19 02/16/19 02/16/19 Range/Units 16:15 17:39 23:57 WBC (4.5-11.0) K/mm3 RBC (3.65-5.03) M/mm3 Hgb (10.1-14.3) gm/dl Hct (30.3-42.9) % MCV (79-97) fl MCH (28-32) pg RDW (13.2-15.2) % POC Glucose 309 H (70-105) Lactic Acid 2.10 H* 0.60 L (0.7-2.0) mmol/L 02/17/19 02/17/19 02/17/19 Range/Units 05:33 08:44 10:45 WBC 19.9 H (4.5-11.0) K/mm3 RBC 3.27 L (3.65-5.03) M/mm3 Hgb 7.4 L (10.1-14.3) gm/dl Hct 23.5 L D (30.3-42.9) % MCV 72 L (79-97) fl MCH 23 L (28-32) pg RDW 18.6 H (13.2-15.2) % POC Glucose 109 H 151 H (70-105) Lactic Acid (0.7-2.0) mmol/L 02/17/19 Range/Units 11:41 WBC (4.5-11.0) K/mm3 RBC (3.65-5.03) M/mm3 Hgb (10.1-14.3) gm/dl Hct (30.3-42.9) % MCV (79-97) fl MCH (28-32) pg RDW (13.2-15.2) % POC Glucose 240 H (70-105) Lactic Acid (0.7-2.0) mmol/L Assessment and Plan Patient will be scheduled for angiography and revascularization of her right leg tomorrow prior to intervention by Dr. Munoz.
[2019-02-17] MEDS ORDERED: VANCOMYCIN PHARMACY TO DOSE IV SCH (17:00)
[2019-02-17] MEDS ORDERED: NACL 0.9 (PRIMING MACHINE ONLY DIALYSIS) MC ONE (17:15)
[2019-02-17] MEDS: ANCEF/NS 1 GM/50 ML 1 GM/50 ML BAG IV SCH (21:31)
[2019-02-18] MEDS: PERCOCET 5/325 PO PRN ×3 (02:24→20:59)
[2019-02-18 06:13] LABS: Hematocrit 23.5 % (30.3-42.9); Hemoglobin 7.1 gm/dl (10.1-14.3); Mean Corpuscular HGB Conc 30 % (30-34); Mean Corpuscular Volume 73 fl (79-97); Platelet Count 303 K/mm3 (140-440); Red Cell Distribution Width 18.8 % (13.2-15.2)
[2019-02-18 06:34] LABS: Calcium 8.4 mg/dL (8.4-10.2)
[2019-02-18 07:35] LABS: Basophils % (Manual) 0 % (0.0-1.8); Eosinophils % (Manual) 0 % (0.0-4.3); Total Cells Counted 100
[2019-02-18 08:00] LABS: Anisocytosis 1+
[2019-02-18 08:01] LABS: Hypochromasia Few; Ovalocytes Few; Platelet Estimate Consistent w Auto; Poikilocytosis 1+; Target Cells 1+
[2019-02-18] MEDS ORDERED: XYLOCAINE 2% INFILTRATI ONE (09:05)
[2019-02-18] MEDS ORDERED: SOLU-Medrol ONE (09:05)
[2019-02-18] MEDS ORDERED: HEPARIN/NS 5000 UNIT/500ML(CATH LAB) 1,000 ML IR ONE (09:05)
[2019-02-18] MEDS ORDERED: HEPARIN 10,000 UNITS/10 ML ONE (09:05)
[2019-02-18] MEDS ORDERED: NACL 0.9% 250ML 250 ML ONE (09:06)
[2019-02-18] MEDS: BENADRYL ONE ×2 (09:11→10:12)
--- NOTE | 2019-02-18 09:12 | Progress Note ---
Assessment and Plan We'll plan on revascularization procedure today. Subjective Date of service: 02/18/19 Principal diagnosis: peripheral vascular disease with nonhealing right foot wounds Interval history: Patient resting comfortably at time of examination. Discussed with patient and patient's family members including the daughter is power of account engineer the plan fo r revascularization of the right leg prior to definitive treatment with Dr. Munoz. All questions answered. Objective - Constitutional Vitals: Vital Signs - 12hr 02/17/19 02/18/19 02/18/19 22:00 00:00 02:24 Temperature 99.2 F Pulse Rate 80 Respiratory 9 L 15 Rate Respiratory 11 L Rate [rectum] O2 Sat by Pulse 92 Oximetry 02/18/19 04:00 Temperature 99.0 F Pulse Rate Respiratory 9 L Rate Respiratory Rate [rectum] O2 Sat by Pulse 98 Oximetry General appearance: Present: no acute distress - EENT Eyes: EOM intact ENT: hearing intact - Neck Neck: supple, normal ROM - Respiratory Respiratory effort: normal - Breasts Breasts: deferred Extremities: abnormal - Gastrointestinal General gastrointestinal: Present: deferred - Genitourinary Female genitourinary: deferred - Labs CBC & Chem 7: 02/18/19 05:32 02/18/19 05:32 Labs: Abnormal lab results 02/17/19 02/17/19 02/17/19 Range/Units 10:45 11:41 23:41 WBC 19.9 H (4.5-11.0) K/mm3 RBC 3.27 L (3.65-5.03) M/mm3 Hgb 7.4 L (10.1-14.3) gm/dl Hct 23.5 L D (30.3-42.9) % MCV 72 L (79-97) fl MCH 23 L (28-32) pg RDW 18.6 H (13.2-15.2) % Seg Neuts % (Manual) (40.0-70.0) % Lymphocytes % (Manual) (13.4-35.0) % Nucleated RBC % (0.0-0.9) % Seg Neutrophils # Man (1.8-7.7) K/mm3 Lymphocytes # (Manual) (1.2-5.4) K/mm3 Chloride (98-107) mmol/L BUN (7-17) mg/dL Creatinine (0.7-1.2) mg/dL Glucose (65-100) mg/dL POC Glucose 240 H 418 H (70-105) 02/18/19 02/18/19 02/18/19 Range/Units 05:32 05:32 06:41 WBC 20.7 H (4.5-11.0) K/mm3 RBC 3.20 L (3.65-5.03) M/mm3 Hgb 7.1 L (10.1-14.3) gm/dl Hct 23.5 L (30.3-42.9) % MCV 73 L (79-97) fl MCH 22 L (28-32) pg RDW 18.8 H (13.2-15.2) % Seg Neuts % (Manual) 95.0 H (40.0-70.0) % Lymphocytes % (Manual) 3.0 L (13.4-35.0) % Nucleated RBC % 1.0 H (0.0-0.9) % Seg Neutrophils # Man 19.7 H (1.8-7.7) K/mm3 Lymphocytes # (Manual) 0.6 L (1.2-5.4) K/mm3 Chloride 96.0 L (98-107) mmol/L BUN 27 H (7-17) mg/dL Creatinine 4.0 H (0.7-1.2) mg/dL Glucose 194 H (65-100) mg/dL POC Glucose 242 H (70-105) Medications & Allergies - Medications Allergies/Adverse Reactions: Allergies Iodinated Contrast- Oral and IV Dye Allergy (Verified 11/25/18 15:48) Hives, Rash Penicillins Allergy (Verified 11/25/18 15:48) Hives Home Medications: Home Medications Medication Instructions Recorded Confirmed Last Taken Type RX: B Complex 11/Folic/C/Biot/Zinc 1 each PO DAILY 09/06/15 02/16/19 11/25/18 20:00 History [Dialyvite with Zinc Tablet] Lispro Insulin [Humalog] 7 unit SQ AC 11/25/18 02/16/19 Unknown History Pantoprazole Sodium 40 mg PO DAILY 11/25/18 02/16/19 11/26/18 05:00 History RX: amLODIPine [Norvasc] 5 mg PO DAILY 11/25/18 02/16/19 11/28/18 History 2.5 Ranitidine HCl [Zantac] 300 mg PO BID 02/16/19 02/16/19 Unknown History Calcium Acetate 667 mg PO AC 02/18/19 02/18/19 Unknown History Lyrica 75 mg PO HS 02/18/19 02/18/19 Unknown History Active Medications: Generic Name Dose Route Start Last Admin Trade Name Freq PRN Reason Stop Dose Admin Albuterol 2.5 mg 02/16/19 16:32 Proventil IH Q3HRT PRN Shortness Of Breath Amlodipine Besylate 5 mg 02/17/19 10:00 02/17/19 09:24 Norvasc PO 5 mg DAILY [facility] Administration Dextrose 50 ml 02/16/19 16:35 D50w (25gm) Syringe IV PRN PRN Hypoglycemia Epoetin Quincy 20,000 unit 02/17/19 14:18 Procrit SUB-Q ANNI PRN hemodialysis Famotidine 10 mg 02/16/19 22:00 02/17/19 21:30 Pepcid PO 10 mg BID [facility] Administration Cefazolin Sodium 1 gm in 50 mls @ 100 mls/hr 02/17/19 22:00 02/17/19 21:31 Ancef/Ns 1 Gm/50 Ml IV 100 mls/hr Q24H [facility] Administration Sodium Chloride 100 mls @ 999 mls/hr 02/17/19 14:18 Nacl 0.9% IV ANNI PRN Hypotension Insulin Glargine 10 units 02/18/19 22:00 Lantus SUB-Q QHS [facility] Insulin Human Lispro 0 unit 02/16/19 18:00 02/17/19 23:50 Humalog SUB-Q 8 unit Q6HR [facility] Administration Protocol Morphine Sulfate 2 mg 02/17/19 23:37 Morphine IV Q3H PRN Pain, Moderate (4-6) Multivit/Ca Carb/B Cmplx/FA/Prenat 1 cap 02/17/19 10:00 02/17/19 10:42 Renal Caps PO 1 cap QDAY [facility] Administration Oxycodone/Acetaminophen 1 tab 02/16/19 16:32 02/18/19 02:24 Percocet 5/325 PO 1 tab Q6H PRN Administration Pain, Moderate (4-6) Sodium Chloride 10 ml 02/16/19 22:00 02/17/19 21:30 Sodium Chloride Flush Syringe 10 Ml IV 10 ml BID [facility] Administration Sodium Chloride 10 ml 02/16/19 16:32 Sodium Chloride Flush Syringe 10 Ml IV PRN PRN LINE FLUSH
--- NOTE | 2019-02-18 09:13 | Consultation ---
History of Present Illness - Reason for Consult Consult date: 02/18/19 - History of Present Illness In the ED, temp 103.1, HR 142, R20, BP 99, BP 124/80. WBC 7.5. Hg 9.6. Plat 269. Creat 1.2. UA with 156 wbc, large LE. Blood cultures 01/21/2019 GNR 1 of 4. Urine culture 01/21/2019 10-100K multiple sp. CXR negative. CT chest showed atelectasis versus possible small infiltrate in posterior segment left lower lobe. Review of Systems: General: no fever, chills, no malaise Cutaneous: no rash, pruritus Head: no headaches or injury Eyes: no changes in vision, eye pain, double vision Ears: no ear pain, ear discharge, ringing or hearing loss Nose: no nose bleeding, stuffiness Mouth & throat: no bleeding gums, no horseness, no dental problems, or swollen g lands Neck: no pain, node enlargement/lumps, tyroid enlargement or tenderness Respiratory: no cough, wheezing, sputum, hemoptysis, pleuritic chest pain Cardiovascular: no chest pain, leg edema, cyanosis, ERNST, orthopnea Musculoskeletal: no edema Gastrointestinal: +nausea, vomiting, no hematemesis, diarrhea, constipation, melena, bright red blood in stools, fecal incontinence, jaundice Genitourinary/Reproductive: + frequent urination, dysuria, hematuria, incontinence Neurogical: no seizures, no headaches, no weakness, no paresthesias, no loss of speech or vision; no memory loss, no vertigo, no tremors, no numbness Psychiatric: stable mood; no excessive anxiety, sadness or moodiness General appearance: Alert in NAD Eyes: anicteric sclerae, moist conjunctivae; no lid-lag; PERRLA HENT: Atraumatic; oropharynx clear with moist mucous membranes and no mucosal ulcerations/no oral thrush; normal hard and soft palate. Normal external ears. Neck: Trachea midline; supple, no thyromegaly or lymphadenopathy Lungs: CTA, with normal respiratory effort and no intercostal retractions CV: RRR no murmur Abdomen: Soft, non-tender; no masses or hepatosplenomegaly Extremities: no edema, cyanosis Skin: Normal temperature, turgor and texture; no rash, ulcers or subcutaneous nodules Psych: Appropriate affect, alert and oriented to person, place and time. Neuro: alert and oriented x 3. Moving all extermities Cultures: Blood cultures 01/21/2019 no growth today Urine culture 01/21/2019 Assessment: 1) Severe Sepsis: Present on admission, manifested by fever, tachycardia, increased lactate. Etiology most likely 2) 3) 4) 5) Recommendations: - follow-up blood cultures, urine culture - Will follow. Julia Tariq MD Infectious Diseases Cal[employer] Machine [employer] [facility] ([facility]) M [phone] O [phone] Past History Past Medical History: diabetes, ESRD, GERD, heart failure, hypertension, hypothyroidism, PVD Past Surgical History: cholecystectomy, Other (toe surgery) Medications and Allergies Allergies Allergy/AdvReac Type Severity Reaction Status Date / Time Iodinated Contrast- Oral and Allergy Hives, Rash Verified 11/25/18 15:48 IV Dye Penicillins Allergy Hives Verified 11/25/18 15:48 Home Medications Medication Instructions Recorded Confirmed Last Taken Type B Complex 11/Folic/C/Biot/Zinc 1 each PO DAILY 09/06/15 02/16/19 11/25/18 20:00 History [Dialyvite with Zinc Tablet] Lispro Insulin [Humalog] 7 unit SQ AC 11/25/18 02/16/19 Unknown History Pantoprazole Sodium 40 mg PO DAILY 11/25/18 02/16/19 11/26/18 05:00 History amLODIPine [Norvasc] 5 mg PO DAILY 11/25/18 02/16/19 11/28/18 History 2.5 Ranitidine HCl [Zantac] 300 mg PO BID 02/16/19 02/16/19 Unknown History Calcium Acetate 667 mg PO AC 02/18/19 02/18/19 Unknown History Lyrica 75 mg PO HS 02/18/19 02/18/19 Unknown History Active Meds: Active Medications Albuterol (Proventil) 2.5 mg IH Q3HRT PRN PRN Reason: Shortness Of Breath Amlodipine Besylate (Norvasc) 5 mg PO DAILY [facility] Last Admin: 02/17/19 09:24 Dose: 5 mg Documented by: Dextrose (D50w (25gm) Syringe) 50 ml IV PRN PRN PRN Reason: Hypoglycemia Epoetin Quincy (Procrit) 20,000 unit SUB-Q ANNI PRN PRN Reason: hemodialysis Famotidine (Pepcid) 10 mg PO BID [facility] Last Admin: 02/17/19 21:30 Dose: 10 mg Documented by: Cefazolin Sodium (Ancef/Ns 1 Gm/50 Ml) 1 gm in 50 mls @ 100 mls/hr IV Q24H [facility] Last Admin: 02/17/19 21:31 Dose: 100 mls/hr Documented by: Sodium Chloride (Nacl 0.9%) 100 mls @ 999 mls/hr IV ANNI PRN PRN Reason: Hypotension Insulin Glargine (Lantus) 10 units SUB-Q QHS [facility] Insulin Human Lispro (Humalog) 0 unit SUB-Q Q6HR [facility]; Protocol Last Admin: 02/17/19 23:50 Dose: 8 unit Documented by: Morphine Sulfate (Morphine) 2 mg IV Q3H PRN PRN Reason: Pain, Moderate (4-6) Multivit/Ca Carb/B Cmplx/FA/Prenat (Renal Caps) 1 cap PO QDAY [facility] Last Admin: 02/17/19 10:42 Dose: 1 cap Documented by: Oxycodone/Acetaminophen (Percocet 5/325) 1 tab PO Q6H PRN PRN Reason: Pain, Moderate (4-6) Last Admin: 02/18/19 02:24 Dose: 1 tab Documented by: Sodium Chloride (Sodium Chloride Flush Syringe 10 Ml) 10 ml IV BID [facility] Last Admin: 02/17/19 21:30 Dose: 10 ml Documented by: Sodium Chloride (Sodium Chloride Flush Syringe 10 Ml) 10 ml IV PRN PRN PRN Reason: LINE FLUSH Physical Examination - Constitutional Vitals: Vital Signs Temp Pulse Resp BP Pulse Ox 99.0 F 80 9 L 146/62 98 02/18/19 04:00 02/17/19 22:00 02/18/19 04:00 02/17/19 19:20 02/18/19 04:00 Temperature -Last 24 Hours Temperature 99.0 F Temperature 99.2 F Temperature 99.4 F Temperature 98.0 F Temperature 99.4 F Results - Labs CBC & Chem 7: 02/18/19 05:32 02/18/19 05:32 Labs: Abnormal lab results 02/17/19 02/17/19 02/17/19 Range/Units 10:45 11:41 23:41 WBC 19.9 H (4.5-11.0) K/mm3 RBC 3.27 L (3.65-5.03) M/mm3 Hgb 7.4 L (10.1-14.3) gm/dl Hct 23.5 L D (30.3-42.9) % MCV 72 L (79-97) fl MCH 23 L (28-32) pg RDW 18.6 H (13.2-15.2) % Seg Neuts % (Manual) (40.0-70.0) % Lymphocytes % (Manual) (13.4-35.0) % Nucleated RBC % (0.0-0.9) % Seg Neutrophils # Man (1.8-7.7) K/mm3 Lymphocytes # (Manual) (1.2-5.4) K/mm3 Chloride (98-107) mmol/L BUN (7-17) mg/dL Creatinine (0.7-1.2) mg/dL Glucose (65-100) mg/dL POC Glucose 240 H 418 H (70-105) 02/18/19 02/18/19 02/18/19 Range/Units 05:32 05:32 06:41 WBC 20.7 H (4.5-11.0) K/mm3 RBC 3.20 L (3.65-5.03) M/mm3 Hgb 7.1 L (10.1-14.3) gm/dl Hct 23.5 L (30.3-42.9) % MCV 73 L (79-97) fl MCH 22 L (28-32) pg RDW 18.8 H (13.2-15.2) % Seg Neuts % (Manual) 95.0 H (40.0-70.0) % Lymphocytes % (Manual) 3.0 L (13.4-35.0) % Nucleated RBC % 1.0 H (0.0-0.9) % Seg Neutrophils # Man 19.7 H (1.8-7.7) K/mm3 Lymphocytes # (Manual) 0.6 L (1.2-5.4) K/mm3 Chloride 96.0 L (98-107) mmol/L BUN 27 H (7-17) mg/dL Creatinine 4.0 H (0.7-1.2) mg/dL Glucose 194 H (65-100) mg/dL POC Glucose 242 H (70-105)
[2019-02-18] MEDS: SUBLIMAZE ONE ×3 (09:37→10:20)
[2019-02-18] MEDS: VERSED ONE ×2 (09:37→10:16)
[2019-02-18] MEDS ORDERED: TRIDIL DRIP 50MG/250ML 50 MG/250 ML BOTTLE ONE (10:05)
[2019-02-18] MEDS ORDERED: NACL 0.9% 1000 ML 1,000 ML ONE (10:05)
[2019-02-18] MEDS ORDERED: CALAN ONE (10:05)
--- NOTE | 2019-02-18 11:11 | Operative Report ---
Operative Report Operative Report: Exam: Right lower extremity revascularization Clinical indication: Patient with a history of non-healing right foot wound Date: 02/18/2019 Procedure: Following an excellent addition of the risks, benefits and alternatives; written informed consent was obtained from the next of kin. The patient was brought to the angiographic suite and placed in supine position on the examination table. Initial evaluation of her left groin demonstrated a patent left common femoral artery. The patient's left groin was prepped and draped in the usual sterile fashion. 1% lidocaine was used for anesthesia. Under ultrasound guidance, the left common femoral artery was cannulated with a 7 cm 21-gauge needle. A 0.018 guidewire was admitted centrally. The needle was exchanged for a micro-sheath and the 0.018 guidewire was exchanged for a 0.035 guidewire. The micro-sheath was exchanged for a 5 uzbek vascular sheath. An Omni flush catheter was advanced over the guidewire. Together the guidewire and catheter were advanced at the distal abdominal aorta. Angiography was performed. This demonstrates scattered areas of atherosclerotic disease involving the distal abdominal aorta, bilateral common iliac and bilateral external iliac arteries without hemodynamically significant stenosis. The bifurcation was crossed using the Omni flush catheter and guidewire. Additional angiography of the right lower extremity was performed from the right external iliac artery, right superficial femoral artery proximally and mid. This demonstrates a 70% stenosis involving the mid to distal portion of the SFA. The remaining SFA has scattered areas of atherosclerotic disease without hemodynamically significant stenosis. The popliteal arteries patent. The posterior tibial artery is occluded. The peroneal artery extends to the foot. The anterior tibial artery has a long segment occlusion within the midportion with reconstitution through collaterals and a patent dorsalis pedis artery. The 5 Mauritian catheter was exchanged over the guidewire for a 6 Mauritian 65 cm sheath which was advanced just distal to the stenosis in the SFA. The vertebral catheter and 0.018 guidewire were then used to selectively cannulate the anterior tibial artery. The vertebral catheter was exchanged for a Trailblazer catheter and together the catheter guidewire advanced to the short dorsalis pedis artery. Contrast was injected to document true luminal positioning. Atherectomy of the anterior tibial artery was performed using a 1.25 micro- Diamondback atherectomy device. Post atherectomy angioplasty was performed using a 2.5/2.0 x 220 cm balloon insufflated extending from the dorsalis pedis to the popliteal artery. Post atherectomy and angioplasty imaging demonstrated a patent anterior tibial artery with brisk flow to the foot. Scattered areas of 10-20% stenosis are present in the anterior tibial artery. No limiting dissection is noted. Angioplasty was then performed of the SFA lesion using a 5 mm x 40 mm balloon insufflated to nominal atmospheres for 3 minutes. Post angioplasty treatment with stroke at a balloon was then performed using a 5 mm x 80 mm balloon insufflated to nominal atmospheres for 3 minutes. Posttreatment imaging demonstrated reduction of the stenosis to less than 10%. At this point, the catheters, guidewires and she sore removed and hemostasis achieved in the left groin using an Angio-Seal arterial closure device. A sterile dressing was applied. The patient tolerated the procedure well. There were no immediate post procedure complications. Conscious sedation was performed under the guidance of radiologic nursing. Continuous cardiopulmonary monitoring was utilized. Impression: 1) Aortography and right lower extremity angiography demonstrating 70% SFA stenosis in the mid to distal portion, complete occlusion of the posterior tibial artery and long segment occlusion of the anterior tibial artery with perineal runoff to the foot. 2) Treatment of the SFA lesion with angioplasty and drug coated balloon with residual less than 10% stenosis. 3: Treatment of the anterior tibial artery with atherectomy and angioplasty with residual attended 20% stenosis
[2019-02-18] MEDS ORDERED: ZOFRAN IV PRN (11:34)
[2019-02-18] MEDS: NORVASC PO SCH (11:45)
[2019-02-18] MEDS: PEPCID PO SCH ×2 (11:45→21:04)
[2019-02-18] MEDS: Renal Caps PO SCH (11:45)
[2019-02-18] MEDS: SODIUM CHLORIDE FLUSH SYRINGE 10 ML IV SCH ×2 (11:48→21:18)
[2019-02-18] MEDS ORDERED: NACL 0.9% 500 ML 500 ML IV ONE (12:00)
[2019-02-18] MEDS: HumaLOG SUB-Q SCH ×2 (12:35→18:30)
--- NOTE | 2019-02-18 13:37 | Progress Note ---
Assessment and Plan - Patient Problems (1) Diabetic infection of right foot Current Visit: No Status: Acute Plan to address problem: 1) I discussed the angiogram results with Dr. Mercado. He believes a right BKA should be able to heal. 2) Transfuse 2 units of PRBC today. 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 am Subjective Date of service: 02/18/19 Patient Reports: Positive: no new complaints Objective Vital Signs - 12hr 02/18/19 02/18/19 02/18/19 02:24 04:00 08:00 Temperature 99.0 F 97.9 F Pulse Rate Respiratory 15 9 L 12 Rate O2 Sat by Pulse 98 100 Oximetry 02/18/19 12:00 Temperature Pulse Rate 72 Respiratory 11 L Rate O2 Sat by Pulse 99 Oximetry - Labs 02/18/19 05:32 02/18/19 05:32 Diabetes panel 02/18/19 Range/Units 05:32 Sodium 138 (137-145) mmol/L Potassium 3.7 (3.6-5.0) mmol/L Chloride 96.0 L (98-107) mmol/L Carbon Dioxide 27 (22-30) mmol/L BUN 27 H (7-17) mg/dL Creatinine 4.0 H (0.7-1.2) mg/dL Glucose 194 H (65-100) mg/dL Calcium 8.4 (8.4-10.2) mg/dL Calcium panel 02/18/19 Range/Units 05:32 Calcium 8.4 (8.4-10.2) mg/dL Pituitary panel 02/18/19 Range/Units 05:32 Sodium 138 (137-145) mmol/L Potassium 3.7 (3.6-5.0) mmol/L Chloride 96.0 L (98-107) mmol/L Carbon Dioxide 27 (22-30) mmol/L BUN 27 H (7-17) mg/dL Creatinine 4.0 H (0.7-1.2) mg/dL Glucose 194 H (65-100) mg/dL Calcium 8.4 (8.4-10.2) mg/dL Adrenal panel 02/18/19 Range/Units 05:32 Sodium 138 (137-145) mmol/L Potassium 3.7 (3.6-5.0) mmol/L Chloride 96.0 L (98-107) mmol/L Carbon Dioxide 27 (22-30) mmol/L BUN 27 H (7-17) mg/dL Creatinine 4.0 H (0.7-1.2) mg/dL Glucose 194 H (65-100) mg/dL Calcium 8.4 (8.4-10.2) mg/dL
--- NOTE | 2019-02-18 15:37 | Progress Note ---
Assessment and Plan Assessment and plan: 78 YO Female with ESRD on HD (T,Thur,Sa), RLE gangrene pending amputation, GERD, HTN, Hypothyroidism, Diastolic CHF presents to ED for evaluation. Pt states that she has experienced pain in her right foot. Pt states that her pain is 4-6/10, constant, and not currently controlled by current medication. EMS notified and upon arrival the patient was found to be in distress. Pt transported to [facility]. Pt seen and evaluated in ED and found to have Sepsis secondary to RLE Gangrene, ESRD, and Acidosis. Surgery consulted in ED, Nephrology consulted in ED. Pt admitted to [facility]. Daughter acknowledges understanding and agreement with care plan. Prior admission on 11/29/18 reviewed. All listed medication reconciled at time of admission. Right lower extremity gangrene - Dr. Munoz is following the patient - Patient will get 2 units of blood today, and when hemodialysis tomorrow and will have outpatient on Saturday Sepsis, with staph aureus bacteremia - Patient is on IV vancomycin, sensitivities pending - ID consult appreciated End-stage renal disease on hemodialysis - Continue dialysis as scheduled Peripheral arterial disease - Vascular surgery consulted - Did angiogram -Impression: 1) Aortography and right lower extremity angiography demonstrating 70% SFA stenosis in the mid to distal portion, complete occlusion of the posterior tibial artery and long segment occlusion of the anterior tibial artery with perineal runoff to the foot. 2) Treatment of the SFA lesion with angioplasty and drug coated balloon with residual less than 10% stenosis. 3: Treatment of the anterior tibial artery with atherectomy and angioplasty with residual attended 20% stenosis DVT prophylaxis; heparin was held for the procedure. Disposition; continue inpatient care History Interval history: Patient was seen and evaluated this morning at the bedside, patient said pain in her legs is getting better. Hospitalist Physical - Physical exam Narrative exam: Not in cardiopulmonary distress. The patient appeared well nourished and normally developed. Vital signs as documented. Head exam is unremarkable. No scleral icterus . Neck is without jugular venous distension, thyromegaly, or carotid bruits. Lungs are clear to auscultation. Cardiac exam reveals regular rate and Rhythm. Abdominal exam reveals normal bowel sounds, no masses, no organomegaly and no aortic enlargement. Extremities clean dressing in the right foot. MUTUEL CLERK: Alert and oriented 3. No focal weakness. - Constitutional Vitals: Temp Pulse Resp BP Pulse Ox 97.9 F 72 11 L 146/62 99 02/18/19 12:00 02/18/19 12:00 02/18/19 12:00 02/17/19 19:20 02/18/19 12:00 General appearance: Present: mild distress Results - Labs CBC & Chem 7: 02/18/19 05:32 02/18/19 05:32 Labs: Laboratory Last Values WBC 20.7 K/mm3 (4.5-11.0) H 02/18/19 05:32 RBC 3.20 M/mm3 (3.65-5.03) L 02/18/19 05:32 Hgb 7.1 gm/dl (10.1-14.3) L 02/18/19 05:32 Hct 23.5 % (30.3-42.9) L 02/18/19 05:32 MCV 73 fl (79-97) L 02/18/19 05:32 MCH 22 pg (28-32) L 02/18/19 05:32 MCHC 30 % (30-34) 02/18/19 05:32 RDW 18.8 % (13.2-15.2) H 02/18/19 05:32 Plt Count 303 K/mm3 (140-440) 02/18/19 05:32 Add Manual Diff Complete 02/18/19 05:32 Total Counted 100 02/18/19 05:32 Seg Neutrophils % Buying Agent 02/18/19 05:32 Seg Neuts % (Manual) 95.0 % (40.0-70.0) H 02/18/19 05:32 0 % 02/18/19 05:32 3.0 % (13.4-35.0) L 02/18/19 05:32 Reactive Lymphs % (Man) 0 % 02/18/19 05:32 2.0 % (0.0-7.3) 02/18/19 05:32 0 % (0.0-4.3) 02/18/19 05:32 0 % (0.0-1.8) 02/18/19 05:32 0 % 02/18/19 05:32 0 % 02/18/19 05:32 0 % 02/18/19 05:32 0 % 02/18/19 05:32 Nucleated RBC % 1.0 % (0.0-0.9) H 02/18/19 05:32 Seg Neutrophils # Man 19.7 K/mm3 (1.8-7.7) H 02/18/19 05:32 Band Neutrophils # 0.0 K/mm3 02/18/19 05:32 0.6 K/mm3 (1.2-5.4) L 02/18/19 05:32 Abs React Lymphs (Man) 0.0 K/mm3 02/18/19 05:32 0.4 K/mm3 (0.0-0.8) 02/18/19 05:32 0.0 K/mm3 (0.0-0.4) 02/18/19 05:32 0.0 K/mm3 (0.0-0.1) 02/18/19 05:32 0.0 K/mm3 02/18/19 05:32 0.0 K/mm3 02/18/19 05:32 0.0 K/mm3 02/18/19 05:32 Blast Cells # 0.0 K/mm3 02/18/19 05:32 WBC Morphology Not Reportable 02/18/19 05:32 WBC Morphology TNR 02/18/19 05:32 Hypersegmented Neuts Not Reportable 02/18/19 05:32 Hyposegmented Neuts Not Reportable 02/18/19 05:32 Hypogranular Neuts Not Reportable 02/18/19 05:32 Not Reportable 02/18/19 05:32 Not Reportable 02/18/19 05:32 Not Reportable 02/18/19 05:32 Not Reportable 02/18/19 05:32 Not Reportable 02/18/19 05:32 Not Reportable 02/18/19 05:32 Consistent w auto 02/18/19 05:32 Not Reportable 02/18/19 05:32 Plt Clumps, EDTA Not Reportable 02/18/19 05:32 Not Reportable 02/18/19 05:32 Not Reportable 02/18/19 05:32 Not Reportable 02/18/19 05:32 Plt Morphology Comment Not Reportable 02/18/19 05:32 RBC Morphology Not Reportable 02/18/19 05:32 Dimorphic RBCs Not Reportable 02/18/19 05:32 Few 02/18/19 05:32 Few 02/18/19 05:32 1+ 02/18/19 05:32 1+ 02/18/19 05:32 Not Reportable 02/18/19 05:32 Not Reportable 02/18/19 05:32 Not Reportable 02/18/19 05:32 Not Reportable 02/18/19 05:32 Not Reportable 02/18/19 05:32 1+ 02/18/19 05:32 Not Reportable 02/18/19 05:32 Few 02/18/19 05:32 Not Reportable 02/18/19 05:32 Not Reportable 02/18/19 05:32 Not Reportable 02/18/19 05:32 Not Reportable 02/18/19 05:32 Not Reportable 02/18/19 05:32 Not Reportable 02/18/19 05:32 1+ 02/18/19 05:32 Acanthocytes (Spur) Not Reportable 02/18/19 05:32 Rouleaux Not Reportable 02/18/19 05:32 Not Reportable 02/18/19 05:32 Not Reportable 02/18/19 05:32 Not Reportable 02/18/19 05:32 Not Reportable 02/18/19 05:32 Hem Pathologist Commnt No 02/18/19 05:32 APTT 23.5 Sec. (24.2-36.6) L 02/16/19 13:54 Sodium 138 mmol/L (137-145) 02/18/19 05:32 Potassium 3.7 mmol/L (3.6-5.0) 02/18/19 05:32 Chloride 96.0 mmol/L (98-107) L 02/18/19 05:32 Carbon Dioxide 27 mmol/L (22-30) 02/18/19 05:32 19 mmol/L 02/18/19 05:32 BUN 27 mg/dL (7-17) H 02/18/19 05:32 4.0 mg/dL (0.7-1.2) H 02/18/19 05:32 Estimated GFR 13 ml/min 02/18/19 05:32 7 % 02/18/19 05:32 Glucose 194 mg/dL (65-100) H 02/18/19 05:32 POC Glucose 242 (70-105) H 02/18/19 06:41 Lactic Acid 1.80 mmol/L (0.7-2.0) 02/16/19 Unknown Calcium 8.4 mg/dL (8.4-10.2) 02/18/19 05:32 0.40 mg/dL (0.1-1.2) 02/16/19 13:54 AST 41 units/L (5-40) H 02/16/19 13:54 ALT 25 units/L (7-56) 02/16/19 13:54 252 units/L (35-129) H 02/16/19 13:54 7.3 g/dL (6.3-8.2) 02/16/19 13:54 2.9 g/dL (3.9-5) L 02/16/19 13:54 0.7 % 02/16/19 13:54 Blood Type B POSITIVE 02/18/19 13:20 Antibody Screen Negative 02/18/19 13:20 Crossmatch See Detail 02/18/19 13:20 Active Medications - Current Medications Current Medications: Generic Name Dose Route Start Last Admin Trade Name Freq PRN Reason Stop Dose Admin Albuterol 2.5 mg 02/16/19 16:32 Proventil IH Q3HRT PRN Shortness Of Breath Amlodipine Besylate 5 mg 02/17/19 10:00 02/17/19 09:24 Norvasc PO 5 mg DAILY JUAQUIN Administration Dextrose 50 ml 02/16/19 16:35 D50w (25gm) Syringe IV PRN PRN Hypoglycemia Epoetin Quin[place] 20,000 unit 02/17/19 14:18 Procrit SUB-Q ANNI PRN hemodialysis Famotidine 10 mg 02/16/19 22:00 02/18/19 11:45 Pepcid PO 10 mg BID JUAQUIN Administration Heparin Sodium (Porcine) 5,000 unit 02/18/19 22:00 Heparin SUB-Q Q8HR JUAQUIN Cefazolin Sodium 1 gm in 50 mls @ 100 mls/hr 02/17/19 22:00 02/17/19 21:31 Ancef/Ns 1 Gm/50 Ml IV 100 mls/hr Q24H JUAQUIN Administration Sodium Chloride 100 mls @ 999 mls/hr 02/17/19 14:18 Nacl 0.9% IV ANNI PRN Hypotension Insulin Glargine 10 units 02/18/19 22:00 Lantus SUB-Q QHS [facility] Insulin Human Lispro 0 unit 02/16/19 18:00 02/17/19 23:50 Humalog SUB-Q 8 unit Q6HR JUAQUIN Administration Protocol Morphine Sulfate 2 mg 02/17/19 23:37 Morphine IV Q3H PRN Pain, Moderate (4-6) Multivit/Ca Carb/B Cmplx/FA/Prenat 1 cap 02/17/19 10:00 02/18/19 11:45 Renal Caps PO 1 cap QDAY JUAQUIN Administration Ondansetron HCl 4 mg 02/18/19 11:34 Zofran IV Q6H PRN Nausea And Vomiting Oxycodone/Acetaminophen 1 tab 02/16/19 16:32 02/18/19 11:45 Percocet 5/325 PO 1 tab Q6H PRN Administration Pain, Moderate (4-6) Sodium Chloride 10 ml 02/16/19 22:00 02/18/19 11:48 Sodium Chloride Flush Syringe 10 Ml IV 10 ml BID JUAQUIN Administration Sodium Chloride 10 ml 02/16/19 16:32 Sodium Chloride Flush Syringe 10 Ml IV PRN PRN LINE FLUSH Nutrition/Malnutrition Assess - Dietary Evaluation Nutrition/Malnutrition Findings: Nutrition Notes Start: 02/17/19 16:06 Freq: Status: Active Protocol: Document 02/17/19 16:06 RM (Rec: 02/17/19 16:08 [id number]) Nutrition Notes Need for Assessment generated from: burner tender,MST Initial or Follow up Assessment Current Diagnosis Sepsis,Hypertension,Heart Failure Other Pertinent Diagnosis ESRD on HD (T/R/S), GERD, Gangrene of toe of R foot Current Diet Renal Labs/Tests Reviewed Pertinent Medications Reviewed Height 5 ft 3 in Weight 64.4 kg Usual Body Weight 63 kg [place] Body Weight (kg) 52.27 BMI 25.1 Subjective/Other Information Screened for malnutrition and skin risk. Jd 11 points. Pt stated that RELAY RECORD CLERK her appetite was poor and that she was not eating X 2- 2 1/2 weeks. Stated that her appetite is poor now. Noted breakfast at bedside w/ 25% eaten. Stated dry wt is 63 kg. No temporal or orbital wasting . Percent of energy/protein needs met: 40%/25% Burn Absent Trauma Absent #1 Nutrition Diagnosis Inadequate oral intake Etiology decreased appetite As Evidenced by Signs and Symptoms breakfast at bedside w/25% eaten Is patient on ventilator? No Is Patient Ambulatory and/or Out of Bed No REE-([facility]-confined to bed) 1324.368 Calculation Used for Recommendations [facility] Additional Notes Protein Needs: 77-97g (1.2-1. 5g/kg) Fluid Needs: 1 ml/kcal Nutrition Intervention Change Diet Order: Continue current Add Supplement/Snack (indicate name/kcal Nepro 1 daily /protein ) Provides kCal: 425 Provides Protein (gm) 19 Goal #1 Meet at least 75% of calorie and protein needs via PO and ONS intakes Anticipated Discharge Needs: Renal diet Follow-Up By: 02/20/19 Additional Comments Follow for PO and ONS intakes
[2019-02-18 16:07] LABS: Hematocrit 22.6 % (30.3-42.9)
--- NOTE | 2019-02-18 20:49 | Progress Note ---
Assessment and Plan 1. ESRD: Continue hemodialysis three times a week, TTS schedule. HD today. 2. Sepsis: 2/2 to right LE cellulitis. S/p recent amputation of right 3rd toe. 3. Anemia: Epogen with HD. 4. PAD: S/p R LE angioplasty. 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 5. GILBERTO: CPAP. 6. DM type 2. 7. HTN. D/w her daughter. Subjective Date of service: 02/18/19 Principal diagnosis: peripheral vascular disease with nonhealing right foot wounds Interval history: Patient was seen and examined at the cathlab. Objective - Vital Signs Vital signs: Vital Signs - 12hr 02/18/19 02/18/19 02/18/19 12:00 16:00 20:44 Temperature 97.9 F Pulse Rate 72 Respiratory 11 L 12 Rate O2 Sat by Pulse 99 96 99 Oximetry - General Appearance General appearance: well-developed, well-nourished, appears stated age, other (no distress) EENT: ATNC, hearing intact Neck: supple Respiratory: Present: Clear to Ascultation Cardiology: regular, S1S2, no murmurs Gastrointestinal: normoactive bowel sounds, no tenderness, no distended Integumentary: no rash Neurologic: no asterixis, other (diminished vision) Musculoskeletal: other (R foot dressing) - Lab 02/18/19 15:40 02/18/19 05:32 Most recent lab results Calcium 8.4 mg/dL (8.4-10.2) 02/18/19 05:32 Medications & Allergies - Medications Allergies/Adverse Reactions: Allergies Iodinated Contrast- Oral and IV Dye Allergy (Verified 11/25/18 15:48) Hives, Rash Penicillins Allergy (Verified 11/25/18 15:48) Hives Home Medications: Home Medications Medication Instructions Recorded Confirmed Last Taken Type B Complex 11/Folic/C/Biot/Zinc 1 each PO DAILY 09/06/15 02/16/19 11/25/18 20:00 History [Dialyvite with Zinc Tablet] Lispro Insulin [Humalog] 7 unit SQ AC 11/25/18 02/16/19 Unknown History Pantoprazole Sodium 40 mg PO DAILY 11/25/18 02/16/19 11/26/18 05:00 History amLODIPine [Norvasc] 5 mg PO DAILY 03/02/16/19 11/28/18 History 2.5 Ranitidine HCl [Zantac] 300 mg PO BID 02/16/19 02/16/19 Unknown History Calcium Acetate 667 mg PO AC 02/18/19 02/18/19 Unknown History Levothyroxine 0.05 mg PO QDAY 02/18/19 02/18/19 Unknown History Lyrica 75 mg PO HS 02/18/19 02/18/19 Unknown History Meloxicam 7.5 mg PO QDAY 02/18/19 02/18/19 Unknown History Pravastatin 40 mg PO HS 02/18/19 02/18/19 Unknown History Zetia 10 mg PO HS 02/18/19 02/18/19 Unknown History Active Medications: Generic Name Dose Route Start Last Admin Trade Name Freq PRN Reason Stop Dose Admin Albuterol 2.5 mg 02/16/19 16:32 Proventil IH Q3HRT PRN Shortness Of Breath Amlodipine Besylate 5 mg 02/17/19 10:00 02/18/19 11:45 Norvasc PO 5 mg DAILY JUAQUIN Administration Dextrose 50 ml 02/16/19 16:35 D50w (25gm) Syringe IV PRN PRN Hypoglycemia Epoetin Quincy 20,000 unit 02/17/19 14:18 Procrit SUB-Q ANNI PRN hemodialysis Famotidine 10 mg 02/16/19 22:00 02/18/19 11:45 Pepcid PO 10 mg BID JUAQUIN Administration Heparin Sodium (Porcine) 5,000 unit 02/18/19 22:00 Heparin SUB-Q Q8HR JUAQUIN Cefazolin Sodium 1 gm in 50 mls @ 100 mls/hr 02/17/19 22:00 02/17/19 21:31 Ancef/Ns 1 Gm/50 Ml IV 100 mls/hr Q24H JUAQUIN Administration Sodium Chloride 100 mls @ 999 mls/hr 02/17/19 14:18 Nacl 0.9% IV ANNI PRN Hypotension Insulin Glargine 10 units 02/18/19 22:00 Lantus SUB-Q QHS JUAQUIN Insulin Human Lispro 0 unit 02/16/19 18:00 02/18/19 18:30 Humalog SUB-Q 8 unit Q6HR JUAQUIN Administration Protocol Morphine Sulfate 2 mg 02/17/19 23:37 Morphine IV Q3H PRN Pain, Moderate (4-6) Multivit/Ca Carb/B Cmplx/FA/Prenat 1 cap 02/17/19 10:00 02/18/19 11:45 Renal Caps PO 1 cap QDAY JUAQUIN Administration Ondansetron HCl 4 mg 02/18/19 11:34 Zofran IV Q6H PRN Nausea And Vomiting Oxycodone/Acetaminophen 1 tab 02/16/19 16:32 02/18/19 11:45 Percocet 5/325 PO 1 tab Q6H PRN Administration Pain, Moderate (4-6) Sodium Chloride 10 ml 02/16/19 22:00 02/18/19 11:48 Sodium Chloride Flush Syringe 10 Ml IV 10 ml BID JUAQUIN Administration Sodium Chloride 10 ml 02/16/19 16:32 Sodium Chloride Flush Syringe 10 Ml IV PRN PRN LINE FLUSH
--- NOTE | 2019-02-18 21:13 | Event Note ---
Date: 02/18/19 Came to see patient, she was out-of-her room getting an angiogram. Patient with ESRD on HD and RLE gangrene pending amputation, admitted with sepsis, blood culture growing Staph aureus 3 of 4 bottles. Obtain repeat blood culture, TTE and continue vancomycin and cefazolin renally adjusted. Contact isolation until MRSA is ruled out.
[2019-02-18] MEDS ORDERED: NACL 0.9% 500 ML 500 ML ONE (21:17)
[2019-02-18] MEDS: LANTUS SUB-Q SCH (21:17)
[2019-02-18] MEDS: HEPARIN SUB-Q SCH (21:23)
[2019-02-18] MEDS ORDERED: .VANCOMYCIN VIAL 1,000 MG in NACL 0.9% 100 ML IV SCH (22:00)
[2019-02-18] MEDS: ANCEF/NS 1 GM/50 ML 1 GM/50 ML BAG IV SCH (22:10)
[2019-02-19] MEDS: HumaLOG SUB-Q SCH ×5 (00:24→22:05)
[2019-02-19] MEDS: PERCOCET 5/325 PO PRN ×3 (05:03→19:42)
[2019-02-19 05:34] LABS: Hematocrit 22.5 % (30.3-42.9); Hemoglobin 6.8 gm/dl (10.1-14.3); Mean Corpuscular HGB Conc 30 % (30-34); Mean Corpuscular Volume 73 fl (79-97); Platelet Count 305 K/mm3 (140-440); Red Cell Distribution Width 19.1 % (13.2-15.2)
[2019-02-19 05:37] LABS: Calcium 8.7 mg/dL (8.4-10.2)
[2019-02-19 06:52] LABS: Basophils % (Manual) 0 % (0.0-1.8); Eosinophils % (Manual) 0 % (0.0-4.3); Total Cells Counted 100
[2019-02-19 06:53] LABS: Anisocytosis 1+; Ovalocytes Few; Poikilocytosis 1+
[2019-02-19 06:54] LABS: Target Cells 1+
[2019-02-19 06:55] LABS: Hypochromasia 2+; Platelet Estimate Consistent w Auto; Tear Drop Cells Rare
--- NOTE | 2019-02-19 09:30 | Progress Note ---
Assessment and Plan 1. ESRD: Continue hemodialysis three times a week, TTS schedule. HD today. 2. Sepsis: 2/2 to right LE cellulitis. 3. Anemia: 2 units PRBC today. Epogen with HD. 4. PAD: S/p R LE angioplasty. R BKA tomorrow. 5. GILBERTO: CPAP. 6. DM type 2. 7. HTN. Subjective Date of service: 02/19/19 Principal diagnosis: peripheral vascular disease with nonhealing right foot wounds Interval history: Patient was seen and examined at the bedside. Objective - Vital Signs Vital signs: Vital Signs - 12hr 02/18/19 02/19/19 02/19/19 22:00 00:00 04:00 Temperature 98.6 F 98.8 F Pulse Rate 64 Respiratory 12 14 Rate O2 Sat by Pulse 96 96 Oximetry - General Appearance General appearance: well-developed, appears stated age, other (no distress) EENT: ATNC, PERRL, hearing diminished Neck: supple Respiratory: Present: Clear to Ascultation Cardiology: regular, S1S2, no murmurs Gastrointestinal: normoactive bowel sounds, no tenderness, no distended Integumentary: other (R foot dressing noted) Neurologic: other (able to move extremities, b/l diminished vision) Musculoskeletal: other (warmth and tenderness noted, L arm AVF) - Lab 02/19/19 20:55 02/19/19 04:48 Most recent lab results Calcium 8.7 mg/dL (8.4-10.2) 02/19/19 04:48 Medications & Allergies - Medications Allergies/Adverse Reactions: Allergies Iodinated Contrast- Oral and IV Dye Allergy (Verified 11/25/18 15:48) Hives, Rash Penicillins Allergy (Verified 11/25/18 15:48) Hives Home Medications: Home Medications Medication Instructions Recorded Confirmed Last Taken Type B Complex 11/Folic/C/Biot/Zinc 1 each PO DAILY 09/06/15 02/16/19 11/25/18 20:00 History [Dialyvite with Zinc Tablet] Lispro Insulin [Humalog] 7 unit SQ AC 11/25/18 02/16/19 Unknown History Pantoprazole Sodium 40 mg PO DAILY 11/25/18 02/16/19 11/26/18 05:00 History amLODIPine [Norvasc] 5 mg PO DAILY 0302/16/19 11/28/18 History 2.5 Ranitidine HCl [Zantac] 300 mg PO BID 02/16/19 02/16/19 Unknown History Calcium Acetate 667 mg PO AC 02/18/19 02/18/19 Unknown History Levothyroxine 0.05 mg PO QDAY 02/18/19 02/18/19 Unknown History Lyrica 75 mg PO HS 02/18/19 02/18/19 Unknown History Meloxicam 7.5 mg PO QDAY 02/18/19 02/18/19 Unknown History Pravastatin 40 mg PO HS 02/18/19 02/18/19 Unknown History Zetia 10 mg PO HS 02/18/19 02/18/19 Unknown History Active Medications: Generic Name Dose Route Start Last Admin Trade Name Freq PRN Reason Stop Dose Admin Albuterol 2.5 mg 02/16/19 16:32 Proventil IH Q3HRT PRN Shortness Of Breath Amlodipine Besylate 5 mg 02/17/19 10:00 02/18/19 11:45 Norvasc PO 5 mg DAILY JUAQUIN Administration Dextrose 50 ml 02/16/19 16:35 D50w (25gm) Syringe IV PRN PRN Hypoglycemia Diphenhydramine HCl 25 mg 02/19/19 07:52 Benadryl IV Q6H PRN Itching Epoetin [place] 20,000 unit 02/17/19 14:18 Procrit SUB-Q ANNI PRN hemodialysis Famotidine 10 mg 02/16/19 22:00 02/18/19 21:04 Pepcid PO 10 mg BID JUAQUIN Administration Heparin Sodium (Porcine) 5,000 unit 02/18/19 22:00 02/18/19 21:23 Heparin SUB-Q 5,000 unit Q8HR JUAQUIN Administration Cefazolin Sodium 1 gm in 50 mls @ 100 mls/hr 02/17/19 22:00 02/18/19 22:10 Ancef/Ns 1 Gm/50 Ml IV 100 mls/hr Q24H JUAQUIN Administration Sodium Chloride 100 mls @ 999 mls/hr 02/17/19 14:18 Nacl 0.9% IV ANNI PRN Hypotension Vancomycin HCl 1 gm in 250 mls @ 167.007 mls/hr 02/19/19 20:00 Vancomycin/Ns 1 Gm/250 Ml IV TuThSa JUAQUIN Insulin Glargine 10 units 02/18/19 22:00 02/18/19 21:17 Lantus SUB-Q 10 units QHS JUAQUIN Administration Insulin Human Lispro 0 unit 02/19/19 11:30 Humalog SUB-Q ACHS [facility] Protocol Morphine Sulfate 2 mg 02/17/19 23:37 Morphine IV Q3H PRN Pain, Moderate (4-6) Multivit/Ca Carb/B Cmplx/FA/Prenat 1 cap 02/17/19 10:00 02/18/19 11:45 Renal Caps PO 1 cap QDAY JUAQUIN Administration Ondansetron HCl 4 mg 02/18/19 11:34 Zofran IV Q6H PRN Nausea And Vomiting Oxycodone/Acetaminophen 1 tab 02/16/19 16:32 02/19/19 05:03 Percocet 5/325 PO 1 tab Q6H PRN Administration Pain, Moderate (4-6) Sodium Chloride 10 ml 02/16/19 22:00 02/18/19 21:18 Sodium Chloride Flush Syringe 10 Ml IV 10 ml BID JUAQUIN Administration Sodium Chloride 10 ml 02/16/19 16:32 Sodium Chloride Flush Syringe 10 Ml IV PRN PRN LINE FLUSH
[2019-02-19] MEDS: HEPARIN SUB-Q SCH ×3 (10:24→23:42)
[2019-02-19] MEDS: NORVASC PO SCH (10:32)
[2019-02-19] MEDS: PEPCID PO SCH ×2 (10:35→22:06)
[2019-02-19] MEDS: Renal Caps PO SCH (10:35)
[2019-02-19] MEDS: SODIUM CHLORIDE FLUSH SYRINGE 10 ML IV SCH ×2 (10:36→22:08)
--- NOTE | 2019-02-19 13:17 | Progress Note ---
Assessment and Plan - Patient Problems (1) Diabetic infection of right foot Current Visit: No Status: Acute Plan to address problem: 1) HD today 2) 2 unit PRBC transfusion during HD 3) NPO after MN 4) Right BKA tomorrow Subjective Date of service: 02/19/19 Patient Reports: Positive: no new complaints Objective Vital Signs - 12hr 02/19/19 02/19/19 02/19/19 04:00 08:00 10:32 Temperature 98.8 F 97.4 F L Pulse Rate 63 Respiratory 14 Rate Blood Pressure 114/53 O2 Sat by Pulse 96 Oximetry - Integumentary other (No change in right foot exam) - Labs 02/19/19 04:48 02/19/19 04:48 Diabetes panel 02/19/19 Range/Units 04:48 Sodium 139 (137-145) mmol/L Potassium 3.9 (3.6-5.0) mmol/L Chloride 95.2 L (98-107) mmol/L Carbon Dioxide 25 (22-30) mmol/L BUN 42 H (7-17) mg/dL Creatinine 5.2 H (0.7-1.2) mg/dL Glucose 268 H (65-100) mg/dL Calcium 8.7 (8.4-10.2) mg/dL Calcium panel 02/19/19 Range/Units 04:48 Calcium 8.7 (8.4-10.2) mg/dL Pituitary panel 02/19/19 Range/Units 04:48 Sodium 139 (137-145) mmol/L Potassium 3.9 (3.6-5.0) mmol/L Chloride 95.2 L (98-107) mmol/L Carbon Dioxide 25 (22-30) mmol/L BUN 42 H (7-17) mg/dL Creatinine 5.2 H (0.7-1.2) mg/dL Glucose 268 H (65-100) mg/dL Calcium 8.7 (8.4-10.2) mg/dL Adrenal panel 02/19/19 Range/Units 04:48 Sodium 139 (137-145) mmol/L Potassium 3.9 (3.6-5.0) mmol/L Chloride 95.2 L (98-107) mmol/L Carbon Dioxide 25 (22-30) mmol/L BUN 42 H (7-17) mg/dL Creatinine 5.2 H (0.7-1.2) mg/dL Glucose 268 H (65-100) mg/dL Calcium 8.7 (8.4-10.2) mg/dL
--- NOTE | 2019-02-19 13:35 | Progress Note ---
Assessment and Plan 78-year-old female with critical limb ischemia of the right lower extremity status post revascularization without evidence of access site complication. Based on angiography, patient will likely have an adequate amount of blood flow to heal a below-knee amputation. On ASA and plavix. Subjective Date of service: 02/19/19 Principal diagnosis: peripheral vascular disease with nonhealing right foot wounds Interval history: Right foot is warm, but bandage. Patient is alert , but does not respond. She has a palpable left dorsalis pedis pulse. No hematoma at the left groin access site. No pseudoaneurysm at the access site. Objective - Constitutional Vitals: Vital Signs - 12hr 02/19/19 02/19/19 02/19/19 04:00 08:00 10:32 Temperature 98.8 F 97.4 F L Pulse Rate 63 Respiratory 14 Rate Blood Pressure 114/53 O2 Sat by Pulse 96 Oximetry General appearance: Present: no acute distress - EENT Eyes: EOM intact ENT: hearing intact - Respiratory Respiratory effort: other (on CPAP) Extremities: abnormal (see subjective) - Psychiatric Psychiatric: no appropriate mood/affect, cooperative - Labs CBC & Chem 7: 02/19/19 04:48 02/19/19 04:48 Labs: Abnormal lab results 02/18/19 02/18/19 02/18/19 Range/Units 12:09 13:20 15:40 WBC (4.5-11.0) K/mm3 RBC (3.65-5.03) M/mm3 Hgb 7.0 L (10.1-14.3) gm/dl Hct 22.6 L (30.3-42.9) % MCV (79-97) fl MCH (28-32) pg RDW (13.2-15.2) % Seg Neuts % (Manual) (40.0-70.0) % Lymphocytes % (Manual) (13.4-35.0) % Seg Neutrophils # Man (1.8-7.7) K/mm3 Lymphocytes # (Manual) (1.2-5.4) K/mm3 Chloride (98-107) mmol/L BUN (7-17) mg/dL Creatinine (0.7-1.2) mg/dL Glucose (65-100) mg/dL POC Glucose 306 H (70-105) C-Reactive Protein (0.00-1.30) mg/dL Crossmatch See Detail 02/18/19 02/18/19 02/19/19 Range/Units 18:24 22:44 01:36 WBC (4.5-11.0) K/mm3 RBC (3.65-5.03) M/mm3 Hgb (10.1-14.3) gm/dl Hct (30.3-42.9) % MCV (79-97) fl MCH (28-32) pg RDW (13.2-15.2) % Seg Neuts % (Manual) (40.0-70.0) % Lymphocytes % (Manual) (13.4-35.0) % Seg Neutrophils # Man (1.8-7.7) K/mm3 Lymphocytes # (Manual) (1.2-5.4) K/mm3 Chloride (98-107) mmol/L BUN (7-17) mg/dL Creatinine (0.7-1.2) mg/dL Glucose (65-100) mg/dL POC Glucose 472 H 423 H (70-105) C-Reactive Protein 29.60 H (0.00-1.30) mg/dL Crossmatch 02/19/19 02/19/19 02/19/19 Range/Units 04:48 04:48 06:42 WBC 19.8 H (4.5-11.0) K/mm3 RBC 3.10 L (3.65-5.03) M/mm3 Hgb 6.8 L (10.1-14.3) gm/dl Hct 22.5 L (30.3-42.9) % MCV 73 L (79-97) fl MCH 22 L (28-32) pg RDW 19.1 H (13.2-15.2) % Seg Neuts % (Manual) 94.0 H (40.0-70.0) % Lymphocytes % (Manual) 5.0 L (13.4-35.0) % Seg Neutrophils # Man 18.6 H (1.8-7.7) K/mm3 Lymphocytes # (Manual) 1.0 L (1.2-5.4) K/mm3 Chloride 95.2 L (98-107) mmol/L BUN 42 H (7-17) mg/dL Creatinine 5.2 H (0.7-1.2) mg/dL Glucose 268 H (65-100) mg/dL POC Glucose 258 H (70-105) C-Reactive Protein (0.00-1.30) mg/dL Crossmatch 02/19/19 Range/Units 11:32 WBC (4.5-11.0) K/mm3 RBC (3.65-5.03) M/mm3 Hgb (10.1-14.3) gm/dl Hct (30.3-42.9) % MCV (79-97) fl MCH (28-32) pg RDW (13.2-15.2) % Seg Neuts % (Manual) (40.0-70.0) % Lymphocytes % (Manual) (13.4-35.0) % Seg Neutrophils # Man (1.8-7.7) K/mm3 Lymphocytes # (Manual) (1.2-5.4) K/mm3 Chloride (98-107) mmol/L BUN (7-17) mg/dL Creatinine (0.7-1.2) mg/dL Glucose (65-100) mg/dL POC Glucose 122 H (70-105) C-Reactive Protein (0.00-1.30) mg/dL Crossmatch Medications & Allergies - Medications Allergies/Adverse Reactions: Allergies Iodinated Contrast- Oral and IV Dye Allergy (Verified 11/25/18 15:48) Hives, Rash Penicillins Allergy (Verified 11/25/18 15:48) Hives Home Medications: Home Medications Medication Instructions Recorded Confirmed Last Taken Type B Complex 11/Folic/C/Biot/Zinc 1 each PO DAILY 09/06/15 02/16/19 11/25/18 20:00 History [Dialyvite with Zinc Tablet] Lispro Insulin [Humalog] 7 unit SQ AC 11/25/18 02/16/19 Unknown History Pantoprazole Sodium 40 mg PO DAILY 11/25/18 02/16/19 11/26/18 05:00 History amLODIPine [Norvasc] 5 mg PO DAILY 11/25/18 02/16/19 11/28/18 History 2.5 Ranitidine HCl [Zantac] 300 mg PO BID 02/16/19 02/16/19 Unknown History Calcium Acetate 667 mg PO AC 02/18/19 02/18/19 Unknown History Levothyroxine 0.05 mg PO QDAY 02/18/19 02/18/19 Unknown History Lyrica 75 mg PO HS 02/18/19 02/18/19 Unknown History Meloxicam 7.5 mg PO QDAY 02/18/19 02/18/19 Unknown History Pravastatin 40 mg PO HS 02/18/19 02/18/19 Unknown History Zetia 10 mg PO HS 02/18/19 02/18/19 Unknown History Active Medications: Generic Name Dose Route Start Last Admin Trade Name Freq PRN Reason Stop Dose Admin Albuterol 2.5 mg 02/16/19 16:32 Proventil IH Q3HRT PRN Shortness Of Breath Amlodipine Besylate 5 mg 02/17/19 10:00 02/19/19 10:32 Norvasc PO Not Given DAILY JUAQUIN Dextrose 50 ml 02/16/19 16:35 D50w (25gm) Syringe IV PRN PRN Hypoglycemia Diphenhydramine HCl 25 mg 02/19/19 07:52 Benadryl IV Q6H PRN Itching Epoetin [place] 20,000 unit 02/17/19 14:18 Procrit SUB-Q ANNI PRN hemodialysis Famotidine 10 mg 02/16/19 22:00 02/19/19 10:35 Pepcid PO 10 mg BID JUAQUIN Administration Heparin Sodium (Porcine) 5,000 unit 02/18/19 22:00 02/19/19 10:24 Heparin SUB-Q Not Given Q8HR JUAQUIN Cefazolin Sodium 1 gm in 50 mls @ 100 mls/hr 02/17/19 22:00 02/18/19 22:10 Ancef/Ns 1 Gm/50 Ml IV 100 mls/hr Q24H JUAQUIN Administration Sodium Chloride 100 mls @ 999 mls/hr 02/17/19 14:18 Nacl 0.9% IV ANNI PRN Hypotension Vancomycin HCl 1 gm in 250 mls @ 167.007 mls/hr 02/19/19 20:00 Vancomycin/Ns 1 Gm/250 Ml IV TuThSa JUAQUIN Insulin Glargine 10 units 02/18/19 22:00 02/18/19 21:17 Lantus SUB-Q 10 units QHS JUAQUIN Administration Insulin Human Lispro 0 unit 02/19/19 11:30 Humalog SUB-Q ACHS JUAQUIN Protocol Morphine Sulfate 2 mg 02/17/19 23:37 Morphine IV Q3H PRN Pain, Moderate (4-6) Multivit/Ca Carb/B Cmplx/FA/Prenat 1 cap 02/17/19 10:00 02/19/19 10:35 Renal Caps PO 1 cap QDAY JUAQUIN Administration Ondansetron HCl 4 mg 02/18/19 11:34 Zofran IV Q6H PRN Nausea And Vomiting Oxycodone/Acetaminophen 1 tab 02/16/19 16:32 02/19/19 10:47 Percocet 5/325 PO 1 tab Q6H PRN Administration Pain, Moderate (4-6) Sodium Chloride 10 ml 02/16/19 22:00 02/19/19 10:36 Sodium Chloride Flush Syringe 10 Ml IV 10 ml BID JUAQUIN Administration Sodium Chloride 10 ml 02/16/19 16:32 Sodium Chloride Flush Syringe 10 Ml IV PRN PRN LINE FLUSH
--- NOTE | 2019-02-19 13:38 | Consultation ---
History of Present Illness - Reason for Consult Consult date: 02/19/19 bacteremia Requesting physician: SELAM FORBES - History of Present Illness 78 y/o female with history of ESRD on HD, GERD, HTN, Hypothyroidism, CHF, right leg gangrene with chronic wounds s/p right great toe amputation on 11/26/2018 failed HBOT, pending further amputation admitted on 02/16/2019 due to worsening right foot pain. Pain was intense, severe and constant. In the ED, temp 98.5, HR 71, R20, BP 137/58. WBC 20.8. Hg 8.8. Plat 304. Creat 5.4. lactate 2.3. CRP 29. Blood cultures 02/16/2019 grew MRSA 3 of 4 bottles. CXR shows cardiomegaly. Patient underwent 02/18 right lower extremity angiography demonstrating 70% SFA stenosis in the mid to distal portion, complete occlusion of the posterior tibial artery and long segment occlusion of the anterior tibial artery with perineal runoff to the foot. Treatment of the SFA lesion with angioplasty and drug coated balloon with residual less than 10% stenosis. Treatment of the anterior tibial artery with atherectomy and angioplasty with residual attended 20% stenosis. Review of Systems: non verbal Past History Past Medical History: diabetes, ESRD, GERD, heart failure, hypertension, hypothyroidism, other (Legally blind) Past Surgical History: cholecystectomy, Other (toe surgery) Medications and Allergies Allergies Allergy/AdvReac Type Severity Reaction Status Date / Time Iodinated Contrast- Oral and Allergy Hives, Rash Verified 11/25/18 15:48 IV Dye Penicillins Allergy Hives Verified 11/25/18 15:48 Home Medications Medication Instructions Recorded Confirmed Last Taken Type B Complex 11/Folic/C/Biot/Zinc 1 each PO DAILY 09/06/15 02/16/19 11/25/18 20:00 History [Dialyvite with Zinc Tablet] Lispro Insulin [Humalog] 7 unit SQ AC 11/25/18 02/16/19 Unknown History Pantoprazole Sodium 40 mg PO DAILY 11/25/18 02/16/19 11/26/18 05:00 History amLODIPine [Norvasc] 5 mg PO DAILY 11/25/18 02/16/19 11/28/18 History 2.5 Ranitidine HCl [Zantac] 300 mg PO BID 02/16/19 02/16/19 Unknown History Calcium Acetate 667 mg PO AC 02/18/19 02/18/19 Unknown History Levothyroxine 0.05 mg PO QDAY 02/18/19 02/18/19 Unknown History Lyrica 75 mg PO HS 02/18/19 02/18/19 Unknown History Meloxicam 7.5 mg PO QDAY 02/18/19 02/18/19 Unknown History Pravastatin 40 mg PO HS 02/18/19 02/18/19 Unknown History Zetia 10 mg PO HS 02/18/19 02/18/19 Unknown History Active Meds: Active Medications Albuterol (Proventil) 2.5 mg IH Q3HRT PRN PRN Reason: Shortness Of Breath Amlodipine Besylate (Norvasc) 5 mg PO DAILY [facility] Last Admin: 02/19/19 10:32 Dose: Not Given Documented by: Aspirin (Halfprin Ec) 81 mg PO QDAY [facility] Clopidogrel Bisulfate (Plavix) 75 mg PO QDAY [facility] Dextrose (D50w (25gm) Syringe) 50 ml IV PRN PRN PRN Reason: Hypoglycemia Diphenhydramine HCl (Benadryl) 25 mg IV Q6H PRN PRN Reason: Itching Epoetin Quincy (Procrit) 20,000 unit SUB-Q ANNI PRN PRN Reason: hemodialysis Famotidine (Pepcid) 10 mg PO BID [facility] Last Admin: 02/19/19 10:35 Dose: 10 mg Documented by: Heparin Sodium (Porcine) (Heparin) 5,000 unit SUB-Q Q8HR [facility] Last Admin: 02/19/19 10:24 Dose: Not Given Documented by: Cefazolin Sodium (Ancef/Ns 1 Gm/50 Ml) 1 gm in 50 mls @ 100 mls/hr IV Q24H [facility] Last Admin: 02/18/19 22:10 Dose: 100 mls/hr Documented by: Sodium Chloride (Nacl 0.9%) 100 mls @ 999 mls/hr IV ANNI PRN PRN Reason: Hypotension Vancomycin HCl (Vancomycin/Ns 1 Gm/250 Ml) 1 gm in 250 mls @ 167.007 mls/hr IV TuThSa [facility] Insulin Glargine (Lantus) 10 units SUB-Q QHS [facility] Last Admin: 02/18/19 21:17 Dose: 10 units Documented by: Insulin Human Lispro (Humalog) 0 unit SUB-Q ACHS [facility]; Protocol Morphine Sulfate (Morphine) 2 mg IV Q3H PRN PRN Reason: Pain, Moderate (4-6) Multivit/Ca Carb/B Cmplx/FA/Prenat (Renal Caps) 1 cap PO QDAY [facility] Last Admin: 02/19/19 10:35 Dose: 1 cap Documented by: Ondansetron HCl (Zofran) 4 mg IV Q6H PRN PRN Reason: Nausea And Vomiting Oxycodone/Acetaminophen (Percocet 5/325) 1 tab PO Q6H PRN PRN Reason: Pain, Moderate (4-6) Last Admin: 02/19/19 10:47 Dose: 1 tab Documented by: Sodium Chloride (Sodium Chloride Flush Syringe 10 Ml) 10 ml IV BID [facility] Last Admin: 02/19/19 10:36 Dose: 10 ml Documented by: Sodium Chloride (Sodium Chloride Flush Syringe 10 Ml) 10 ml IV PRN PRN PRN Reason: LINE FLUSH Physical Examination - Physical Exam Narrative exam: General appearance: Alert in NAD on BIPAP non verbal Eyes: anicteric sclerae, moist conjunctivae; no lid-lag; PERRLA HENT: Atraumatic; oropharynx limited BIPAP mask Neck: Trachea midline; supple, no thyromegaly or lymphadenopathy Lungs: CTA CV: RRR no murmur Abdomen: Soft, non-tender; no masses or hepatosplenomegaly Extremities:right foot with discoloration covered with dressings Skin: Normal temperature, turgor and texture; no rash, ulcers or subcutaneous nodules Psych: no agitated. Neuro: alert and oriented x 3. Moving all extermities - Constitutional Vitals: Vital Signs Temp Pulse Resp BP Pulse Ox 97.4 F L 63 14 114/53 96 02/19/19 08:00 02/19/19 10:32 02/19/19 04:00 02/19/19 10:32 02/19/19 04:00 Temperature -Last 24 Hours Temperature 97.4 F Temperature 98.8 F Temperature 98.6 F Results - Labs CBC & Chem 7: 02/19/19 04:48 02/19/19 04:48 Labs: Abnormal lab results 02/18/19 02/18/19 02/18/19 Range/Units 12:09 13:20 15:40 WBC (4.5-11.0) K/mm3 RBC (3.65-5.03) M/mm3 Hgb 7.0 L (10.1-14.3) gm/dl Hct 22.6 L (30.3-42.9) % MCV (79-97) fl MCH (28-32) pg RDW (13.2-15.2) % Seg Neuts % (Manual) (40.0-70.0) % Lymphocytes % (Manual) (13.4-35.0) % Seg Neutrophils # Man (1.8-7.7) K/mm3 Lymphocytes # (Manual) (1.2-5.4) K/mm3 Chloride (98-107) mmol/L BUN (7-17) mg/dL Creatinine (0.7-1.2) mg/dL Glucose (65-100) mg/dL POC Glucose 306 H (70-105) C-Reactive Protein (0.00-1.30) mg/dL Crossmatch See Detail 02/18/19 02/18/19 02/19/19 Range/Units 18:24 22:44 01:36 WBC (4.5-11.0) K/mm3 RBC (3.65-5.03) M/mm3 Hgb (10.1-14.3) gm/dl Hct (30.3-42.9) % MCV (79-97) fl MCH (28-32) pg RDW (13.2-15.2) % Seg Neuts % (Manual) (40.0-70.0) % Lymphocytes % (Manual) (13.4-35.0) % Seg Neutrophils # Man (1.8-7.7) K/mm3 Lymphocytes # (Manual) (1.2-5.4) K/mm3 Chloride (98-107) mmol/L BUN (7-17) mg/dL Creatinine (0.7-1.2) mg/dL Glucose (65-100) mg/dL POC Glucose 472 H 423 H (70-105) C-Reactive Protein 29.60 H (0.00-1.30) mg/dL Crossmatch 02/19/19 02/19/19 02/19/19 Range/Units 04:48 04:48 06:42 WBC 19.8 H (4.5-11.0) K/mm3 RBC 3.10 L (3.65-5.03) M/mm3 Hgb 6.8 L (10.1-14.3) gm/dl Hct 22.5 L (30.3-42.9) % MCV 73 L (79-97) fl MCH 22 L (28-32) pg RDW 19.1 H (13.2-15.2) % Seg Neuts % (Manual) 94.0 H (40.0-70.0) % Lymphocytes % (Manual) 5.0 L (13.4-35.0) % Seg Neutrophils # Man 18.6 H (1.8-7.7) K/mm3 Lymphocytes # (Manual) 1.0 L (1.2-5.4) K/mm3 Chloride 95.2 L (98-107) mmol/L BUN 42 H (7-17) mg/dL Creatinine 5.2 H (0.7-1.2) mg/dL Glucose 268 H (65-100) mg/dL POC Glucose 258 H (70-105) C-Reactive Protein (0.00-1.30) mg/dL Crossmatch 02/19/19 Range/Units 11:32 WBC (4.5-11.0) K/mm3 RBC (3.65-5.03) M/mm3 Hgb (10.1-14.3) gm/dl Hct (30.3-42.9) % MCV (79-97) fl MCH (28-32) pg RDW (13.2-15.2) % Seg Neuts % (Manual) (40.0-70.0) % Lymphocytes % (Manual) (13.4-35.0) % Seg Neutrophils # Man (1.8-7.7) K/mm3 Lymphocytes # (Manual) (1.2-5.4) K/mm3 Chloride (98-107) mmol/L BUN (7-17) mg/dL Creatinine (0.7-1.2) mg/dL Glucose (65-100) mg/dL POC Glucose 122 H (70-105) C-Reactive Protein (0.00-1.30) mg/dL Crossmatch Assessment and Plan Cultures: Blood cultures 02/16/2019 grew MRSA 3 of 4 bottles. Assessment: 78 y/o female with history of ESRD on HD, GERD, HTN, Hypothyroidism, CHF, right leg gangrene with chronic wounds s/p right great toe amputation on 11/26/2018 failed HBOT, pending further amputation admitted on 02/16/2019 due to worsening right foot pain: 1) Sepsis: Present on admission, manifested by leukcoytosis, increased lactate. Etiology likely MRSA bacteremia. 2) MRSA bacteremia: source right foot. Blood cultures 02/16/2019 grew MRSA 3 of 4 bottles. 3) PVD with right critical limb ischemia: Patient underwent 02/18 right lower extremity angiography demonstrating 70% SFA stenosis in the mid to distal portion, complete occlusion of the posterior tibial artery and long segment occlusion of the anterior tibial artery with perineal runoff to the foot. Treatment of the SFA lesion with angioplasty and drug coated balloon with residual less than 10% stenosis. Treatment of the anterior tibial artery with atherectomy and angioplasty with residual attended 20% stenosis. Recommendations: - repeat blood cultures - obtain TTE - continue vancomycin with PK consult - to have right BKA tomorrow - Duration IV antibiotics 4 weeks at discharge Will follow. Julia Tariq MD Infectious Diseases [employer] Reporter [facility] ([facility] M [phone] O [phone]
[2019-02-19] MEDS ORDERED: NACL 0.9% 500 ML 500 ML IV SCH (15:19)
--- NOTE | 2019-02-19 17:04 | Anesthesia Consultation ---
Anesthesia Consult and Med Hx Date of service: 02/20/19 - Airway Intubation Access Assessment: Probably Good - Cardiac Exam Anesthetic Concerns: Hx of CHF. ECHO: 06/2017: EF:50-55%, - Pre-Operative Health Status ASA Pre-Surgery Classification: ASA4 Proposed Anesthetic Plan: General, MAC - Pulmonary Hx Smoking: Yes (SOCIALLY ONLY; QUIT 1972) Hx Asthma: No SOB: Yes (resolved with oxygen via nasal cannula) COPD: Yes Hx Sleep Apnea: Yes (BiPAP at home) - Cardiovascular System Hx Hypertension: Yes (SINCE ) Hx Heart Attack/AMI: No Hx Cardia Arrhythmia: No Hx Pacemaker: No Hx Internal Defibrillator: No - Central Nervous System Hx Seizures: No CVA: Yes (2013; "balance is a little off" per daughter) Hx Back Pain: Yes Hx Psychiatric Problems: No - Gastrointestinal Hx Gastroesophageal Reflux Disease: Yes (controlled with medication) - Endocrine Hx Renal Disease: No Hx End Stage Renal Disease: Yes (TTS) Hx Liver Disease: No Hx Insulin Dependent Diabetes: Yes Hx Hypothyroidism: Yes - Hematic Hx Anemia: Yes Hx Sickle Cell Disease: No - Other Systems Hx Alcohol Use: No Hx Substance Use: No Hx Cancer: No Hx Obesity: Yes - Additional Comments Anesthesia Medical History Comments: 02/19/2019: H/H: 6.8/22.5
--- NOTE | 2019-02-19 17:23 | Progress Note ---
Assessment and Plan Assessment and plan: 78 YO Female with ESRD on HD (T,Thur,Sa), RLE gangrene pending amputation, GERD, HTN, Hypothyroidism, Diastolic CHF presents to ED for evaluation. Pt states that she has experienced pain in her right foot. Pt states that her pain is 4-6/10, constant, and not currently controlled by current medication. EMS notified and upon arrival the patient was found to be in distress. Pt transported to [facility]. Pt seen and evaluated in ED and found to have Sepsis secondary to RLE Gangrene, ESRD, and Acidosis. Surgery consulted in ED, Nephrology consulted in ED. Pt admitted to [facility]. Daughter acknowledges understanding and agreement with care plan. Prior admission on 11/29/18 reviewed. All listed medication reconciled at time of admission. Right lower extremity gangrene - Dr. Munoz is following the patient - Patient will get 2 units of blood today, and when hemodialysis tomorrow and will have outpatient on Saturday Sepsis, with MRSA bacteremia - Patient is on IV vancomycin, sensitivities pending - ID consult appreciated End-stage renal disease on hemodialysis - Continue dialysis as scheduled Peripheral arterial disease - Vascular surgery consulted - Did angiogram -Impression: 1) Aortography and right lower extremity angiography demonstrating 70% SFA stenosis in the mid to distal portion, complete occlusion of the posterior tibial artery and long segment occlusion of the anterior tibial artery with perineal runoff to the foot. 2) Treatment of the SFA lesion with angioplasty and drug coated balloon with residual less than 10% stenosis. 3: Treatment of the anterior tibial artery with atherectomy and angioplasty with residual attended 20% stenosis DVT prophylaxis; heparin was held for the procedure. Disposition; continue inpatient care History Interval history: Patient was seen and evaluated this morning at the bedside, patient said pain in her legs is getting better. Hospitalist Physical - Physical exam Narrative exam: Not in cardiopulmonary distress. The patient appeared well nourished and normally developed. Vital signs as documented. Head exam is unremarkable. No scleral icterus . Neck is without jugular venous distension, thyromegaly, or carotid bruits. Lungs are clear to auscultation. Cardiac exam reveals regular rate and Rhythm. Abdominal exam reveals normal bowel sounds, no masses, no organomegaly and no aortic enlargement. Extremities clean dressing in the right foot. 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 No focal weakness. - Constitutional Vitals: Temp Pulse Resp BP Pulse Ox 96.7 F L 64 14 137/66 100 02/19/19 16:00 02/19/19 17:09 02/19/19 17:09 02/19/19 17:09 02/19/19 17:09 General appearance: Present: no acute distress Results - Labs CBC & Chem 7: 02/19/19 04:48 02/19/19 04:48 Labs: Laboratory Last Values WBC 19.8 K/mm3 (4.5-11.0) H 02/19/19 04:48 RBC 3.10 M/mm3 (3.65-5.03) L 02/19/19 04:48 Hgb 6.8 gm/dl (10.1-14.3) L 02/19/19 04:48 Hct 22.5 % (30.3-42.9) L 02/19/19 04:48 MCV 73 fl (79-97) L 02/19/19 04:48 MCH 22 pg (28-32) L 02/19/19 04:48 MCHC 30 % (30-34) 02/19/19 04:48 RDW 19.1 % (13.2-15.2) H 02/19/19 04:48 Plt Count 305 K/mm3 (140-440) 02/19/19 04:48 Lymph % (Auto) Account Support Manager 02/19/19 04:48 [place] % (Auto) Account Support Manager 02/19/19 04:48 Eos % (Auto) Account Support Manager 02/19/19 04:48 Baso % (Auto) Account Support Manager 02/19/19 04:48 Lymph # Account Support Manager 02/19/19 04:48 [place] # Account Support Manager 02/19/19 04:48 Eos # Account Support Manager 02/19/19 04:48 Baso # Account Support Manager 02/19/19 04:48 Add Manual Diff Complete 02/19/19 04:48 Total Counted 100 02/19/19 04:48 Seg Neutrophils % Account Support Manager 02/18/19 05:32 Seg Neuts % (Manual) 94.0 % (40.0-70.0) H 02/19/19 04:48 0 % 02/19/19 04:48 5.0 % (13.4-35.0) L 02/19/19 04:48 Reactive Lymphs % (Man) 0 % 02/19/19 04:48 1.0 % (0.0-7.3) 02/19/19 04:48 0 % (0.0-4.3) 02/19/19 04:48 0 % (0.0-1.8) 02/19/19 04:48 0 % 02/19/19 04:48 0 % 02/19/19 04:48 0 % 02/19/19 04:48 0 % 02/19/19 04:48 Nucleated RBC % Not Reportable 02/19/19 04:48 Seg Neutrophils # Account Support Manager 02/19/19 04:48 Seg Neutrophils # Man 18.6 K/mm3 (1.8-7.7) H 02/19/19 04:48 Band Neutrophils # 0.0 K/mm3 02/19/19 04:48 1.0 K/mm3 (1.2-5.4) L 02/19/19 04:48 Abs React Lymphs (Man) 0.0 K/mm3 02/19/19 04:48 0.2 K/mm3 (0.0-0.8) 02/19/19 04:48 0.0 K/mm3 (0.0-0.4) 02/19/19 04:48 0.0 K/mm3 (0.0-0.1) 02/19/19 04:48 0.0 K/mm3 02/19/19 04:48 0.0 K/mm3 02/19/19 04:48 0.0 K/mm3 02/19/19 04:48 Blast Cells # 0.0 K/mm3 02/19/19 04:48 WBC Morphology Not Reportable 02/19/19 04:48 Hypersegmented Neuts Not Reportable 02/19/19 04:48 Hyposegmented Neuts Not Reportable 02/19/19 04:48 Hypogranular Neuts Not Reportable 02/19/19 04:48 Not Reportable 02/19/19 04:48 Not Reportable 02/19/19 04:48 Not Reportable 02/19/19 04:48 Not Reportable 02/19/19 04:48 Not Reportable 02/19/19 04:48 Not Reportable 02/19/19 04:48 Consistent w auto 02/19/19 04:48 Not Reportable 02/19/19 04:48 Plt Clumps, EDTA Not Reportable 02/19/19 04:48 Not Reportable 02/19/19 04:48 Not Reportable 02/19/19 04:48 Not Reportable 02/19/19 04:48 Plt Morphology Comment Not Reportable 02/19/19 04:48 RBC Morphology Not Reportable 02/19/19 04:48 Dimorphic RBCs Not Reportable 02/19/19 04:48 Not Reportable 02/19/19 04:48 2+ 02/19/19 04:48 1+ 02/19/19 04:48 1+ 02/19/19 04:48 Not Reportable 02/19/19 04:48 Not Reportable 02/19/19 04:48 Not Reportable 02/19/19 04:48 Not Reportable 02/19/19 04:48 Not Reportable 02/19/19 04:48 1+ 02/19/19 04:48 Rare 02/19/19 04:48 Few 02/19/19 04:48 Not Reportable 02/19/19 04:48 Not Reportable 02/19/19 04:48 Not Reportable 02/19/19 04:48 Not Reportable 02/19/19 04:48 Not Reportable 02/19/19 04:48 Not Reportable 02/19/19 04:48 Few 02/19/19 04:48 Acanthocytes (Spur) Not Reportable 02/19/19 04:48 Rouleaux Not Reportable 02/19/19 04:48 Not Reportable 02/19/19 04:48 Not Reportable 02/19/19 04:48 Not Reportable 02/19/19 04:48 Not Reportable 02/19/19 04:48 Hem Pathologist Commnt No 02/19/19 04:48 APTT 23.5 Sec. (24.2-36.6) L 02/16/19 13:54 Sodium 139 mmol/L (137-145) 02/19/19 04:48 Potassium 3.9 mmol/L (3.6-5.0) 02/19/19 04:48 Chloride 95.2 mmol/L (98-107) L 02/19/19 04:48 Carbon Dioxide 25 mmol/L (22-30) 02/19/19 04:48 23 mmol/L 02/19/19 04:48 BUN 42 mg/dL (7-17) H 02/19/19 04:48 5.2 mg/dL (0.7-1.2) H 02/19/19 04:48 Estimated GFR 10 ml/min 02/19/19 04:48 8 % 02/19/19 04:48 Glucose 268 mg/dL (65-100) H 02/19/19 04:48 POC Glucose 126 (70-105) H 02/19/19 16:26 Lactic Acid 1.80 mmol/L (0.7-2.0) 02/16/19 Unknown Calcium 8.7 mg/dL (8.4-10.2) 02/19/19 04:48 0.40 mg/dL (0.1-1.2) 02/16/19 13:54 AST 41 units/L (5-40) H 02/16/19 13:54 ALT 25 units/L (7-56) 02/16/19 13:54 252 units/L (35-129) H 02/16/19 13:54 29.60 mg/dL (0.00-1.30) H 02/18/19 22:44 7.3 g/dL (6.3-8.2) 02/16/19 13:54 2.9 g/dL (3.9-5) L 02/16/19 13:54 0.7 % 02/16/19 13:54 Random Vancomycin 15.5 ug/mL (0-40.0) 02/19/19 04:48 Blood Type B POSITIVE 02/19/19 15:15 Antibody Screen Negative 02/19/19 15:15 Crossmatch See Detail 02/19/19 15:15 Active Medications - Current Medications Current Medications: Generic Name Dose Route Start Last Admin Trade Name Freq PRN Reason Stop Dose Admin Albuterol 2.5 mg 02/16/19 16:32 Proventil IH Q3HRT PRN Shortness Of Breath Amlodipine Besylate 5 mg 02/17/19 10:00 02/19/19 10:32 Norvasc PO Not Given DAILY JUAQUIN Aspirin 81 mg 02/19/19 14:00 Halfprin Ec PO QDAY JUAQUIN Clopidogrel Bisulfate 75 mg 02/19/19 14:00 Plavix PO QDAY JUAQUIN Dextrose 50 ml 02/16/19 16:35 D50w (25gm) Syringe IV PRN PRN Hypoglycemia Diphenhydramine HCl 25 mg 02/19/19 07:52 Benadryl IV Q6H PRN Itching Epoetin [place] 20,000 unit 02/17/19 14:18 Procrit SUB-Q ANNI PRN hemodialysis Famotidine 10 mg 02/16/19 22:00 02/19/19 10:35 Pepcid PO 10 mg BID JUAQUIN Administration Heparin Sodium (Porcine) 5,000 unit 02/18/19 22:00 02/19/19 14:28 Heparin SUB-Q Not Given Q8HR [facility] Sodium Chloride 100 mls @ 999 mls/hr 02/17/19 14:18 Nacl 0.9% IV ANNI PRN Hypotension Vancomycin HCl 1 gm in 250 mls @ 167.007 mls/hr 02/19/19 20:00 Vancomycin/Ns 1 Gm/250 Ml IV TuThSa [facility] Sodium Chloride 500 mls @ 0 mls/hr 02/19/19 15:19 Nacl 0.9% 500 Ml IV ONCE [facility] As Directed Insulin Glargine 10 units 02/18/19 22:00 02/18/19 21:17 Lantus SUB-Q 10 units QHS [facility] Administration Insulin Human Lispro 0 unit 02/19/19 11:30 02/19/19 16:25 Humalog SUB-Q Not Given ACHS [facility] Protocol Morphine Sulfate 2 mg 02/17/19 23:37 Morphine IV Q3H PRN Pain, Moderate (4-6) Multivit/Ca Carb/B Cmplx/FA/Prenat 1 cap 02/17/19 10:00 02/19/19 10:35 Renal Caps PO 1 cap QDAY [facility] Administration Ondansetron HCl 4 mg 02/18/19 11:34 Zofran IV Q6H PRN Nausea And Vomiting Oxycodone/Acetaminophen 1 tab 02/16/19 16:32 02/19/19 10:47 Percocet 5/325 PO 1 tab Q6H PRN Administration Pain, Moderate (4-6) Sodium Chloride 10 ml 02/16/19 22:00 02/19/19 10:36 Sodium Chloride Flush Syringe 10 Ml IV 10 ml BID JUAQUIN Administration Sodium Chloride 10 ml 02/16/19 16:32 Sodium Chloride Flush Syringe 10 Ml IV PRN PRN LINE FLUSH Nutrition/Malnutrition Assess - Dietary Evaluation Nutrition/Malnutrition Findings: Nutrition Notes Start: 02/17/19 16:06 Freq: Status: Active Protocol: Document 02/17/19 16:06 RM (Rec: 02/17/19 16:08 RM [id number]) Nutrition Notes Need for Assessment 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 Jd 11 points. 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 Stated that her appetite is poor now. Noted breakfast at bedside w/ 25% eaten. Stated dry wt is 63 kg. No temporal or orbital wasting . Percent of energy/protein needs met: 40%/25% Burn Absent Trauma Absent #1 Nutrition Diagnosis Inadequate oral intake Etiology decreased appetite As Evidenced by Signs and Symptoms breakfast at bedside w/25% eaten Is patient on ventilator? No Is Patient Ambulatory and/or Out of Bed No REE-([facility]-confined to bed) 1324.368 Calculation Used for Recommendations [facility] Additional Notes Protein Needs: 77-97g (1.2-1. 5g/kg) Fluid Needs: 1 ml/kcal Nutrition Intervention Change Diet Order: Continue current Add Supplement/Snack (indicate name/kcal Nepro 1 daily /protein ) Provides kCal: 425 Provides Protein (gm) 19 Goal #1 Meet at least 75% of calorie and protein needs via PO and ONS intakes Anticipated Discharge Needs: Renal diet Follow-Up By: 02/20/19 Additional Comments Follow for PO and ONS intakes
[2019-02-19] MEDS: HALFPRIN EC PO SCH (17:32)
[2019-02-19] MEDS: PLAVIX PO SCH (17:32)
[2019-02-19] MEDS: BENADRYL IV PRN (19:42)
[2019-02-19] MEDS: VANCOMYCIN/NS 1 GM/250 ML 1 GM/250 ML BAG IV SCH (21:00)
[2019-02-19 21:04] LABS: Hematocrit 30.3 % (30.3-42.9); Hemoglobin 9.9 gm/dl (10.1-14.3)
[2019-02-19] MEDS: MORPHINE IV PRN (22:03)
[2019-02-19] MEDS: LANTUS SUB-Q SCH (22:06)
[2019-02-20] MEDS: MORPHINE IV PRN ×3 (00:56→07:37)
[2019-02-20] MEDS: BENADRYL IV PRN (04:50)
[2019-02-20 06:42] LABS: Hematocrit 30.1 % (30.3-42.9); Hemoglobin 9.5 gm/dl (10.1-14.3); Mean Corpuscular HGB Conc 32 % (30-34); Mean Corpuscular Volume 77 fl (79-97); Platelet Count 268 K/mm3 (140-440); Red Blood Count 3.94 M/mm3 (3.65-5.03)
[2019-02-20 06:45] LABS: Red Cell Distribution Width 20.9 % (13.2-15.2)
[2019-02-20 06:58] LABS: Calcium 8.5 mg/dL (8.4-10.2)
[2019-02-20] MEDS: HEPARIN SUB-Q SCH ×3 (07:05→22:10)
[2019-02-20] MEDS: HumaLOG SUB-Q SCH ×5 (07:20→22:20)
[2019-02-20 08:13] LABS: Anisocytosis 1+; Basophils % (Manual) 0 % (0.0-1.8); Eosinophils % (Manual) 0 % (0.0-4.3); Total Cells Counted 100
[2019-02-20 08:14] LABS: Hypochromasia Few; Poikilocytosis Few
[2019-02-20 08:15] LABS: Platelet Estimate Consistent w Auto
--- NOTE | 2019-02-20 08:56 | Progress Note ---
Assessment and Plan 1. ESRD: Continue hemodialysis three times a week, TTS schedule. HD tomorrow. 2. Sepsis: 2/2 to right LE cellulitis. 3. Anemia: S/p 2 units of PRBC yesterday. Epogen with HD. 4. PAD: S/p R LE angioplasty. R BKA today. 5. GILBERTO: CPAP. 6. DM type 2. 7. HTN. Subjective Date of service: 02/20/19 Principal diagnosis: peripheral vascular disease with nonhealing right foot wounds Interval history: Patient was seen and examined at the bedside. Objective - Vital Signs Vital signs: Vital Signs - 12hr 02/19/19 02/19/19 02/19/19 21:00 21:11 21:21 Temperature Pulse Rate 69 70 69 Respiratory 7 L 10 L 8 L Rate Blood Pressure 128/56 128/56 128/56 O2 Sat by Pulse 96 99 99 Oximetry 02/19/19 02/19/19 02/19/19 21:31 21:41 21:51 Temperature Pulse Rate 69 68 65 Respiratory 9 L 12 14 Rate Blood Pressure 128/56 128/56 128/56 O2 Sat by Pulse 100 97 99 Oximetry 02/19/19 02/19/19 02/19/19 22:00 22:11 22:21 Temperature Pulse Rate 67 66 66 Respiratory 11 L 12 10 L Rate Blood Pressure 141/69 141/69 141/69 O2 Sat by Pulse 94 99 99 Oximetry 02/19/19 02/19/19 02/19/19 22:31 22:41 22:51 Temperature Pulse Rate 73 70 66 Respiratory 17 11 L 18 Rate Blood Pressure 141/69 141/69 141/69 O2 Sat by Pulse 99 100 94 Oximetry 02/19/19 02/19/19 02/19/19 23:01 23:11 23:19 Temperature Pulse Rate 67 76 69 Respiratory 9 L 10 L 13 Rate Blood Pressure 141/69 129/46 129/46 O2 Sat by Pulse 100 99 100 Oximetry 02/19/19 02/19/19 02/19/19 23:20 23:22 23:31 Temperature 97.4 F L Pulse Rate 68 68 Respiratory 16 10 L Rate Blood Pressure 129/46 129/46 O2 Sat by Pulse 100 100 Oximetry 02/19/19 02/19/19 02/20/19 23:41 23:51 00:01 Temperature Pulse Rate 67 73 70 Respiratory 12 10 L 12 Rate Blood Pressure 129/46 129/46 149/73 O2 Sat by Pulse 100 100 96 Oximetry 02/20/19 02/20/19 02/20/19 00:11 00:21 00:31 Temperature Pulse Rate 69 69 69 Respiratory 12 16 10 L Rate Blood Pressure 149/73 149/73 149/73 O2 Sat by Pulse 97 95 95 Oximetry 02/20/19 02/20/19 02/20/19 00:41 00:51 01:00 Temperature Pulse Rate 68 67 80 Respiratory 11 L 10 L 11 L Rate Blood Pressure 149/73 149/73 167/79 O2 Sat by Pulse 98 98 96 Oximetry 02/20/19 02/20/19 02/20/19 01:10 01:21 01:31 Temperature Pulse Rate 71 66 60 Respiratory 6 L 6 L 9 L Rate Blood Pressure 167/79 149/73 149/73 O2 Sat by Pulse 100 100 100 Oximetry 02/20/19 02/20/19 02/20/19 01:41 01:51 02:00 Temperature Pulse Rate 65 60 59 L Respiratory 8 L 11 L 10 L Rate Blood Pressure 167/79 167/79 130/70 O2 Sat by Pulse 100 100 94 Oximetry 02/20/19 02/20/19 02/20/19 02:11 02:21 02:31 Temperature Pulse Rate 64 60 59 L Respiratory 9 L 8 L 10 L Rate Blood Pressure 130/70 130/70 130/70 O2 Sat by Pulse 100 100 100 Oximetry 02/20/19 02/20/19 02/20/19 02:41 02:51 03:00 Temperature Pulse Rate 61 56 L 58 L Respiratory 11 L 10 L 9 L Rate Blood Pressure 130/70 130/70 119/53 O2 Sat by Pulse 100 100 93 Oximetry 02/20/19 02/20/19 02/20/19 03:11 03:21 03:31 Temperature Pulse Rate 58 L 64 61 Respiratory 10 L 7 L 9 L Rate Blood Pressure 119/53 119/53 119/53 O2 Sat by Pulse 100 100 100 Oximetry 02/20/19 02/20/19 02/20/19 03:35 03:41 03:51 Temperature 98.4 F Pulse Rate 59 L 66 Respiratory 9 L 10 L Rate Blood Pressure 119/53 119/53 O2 Sat by Pulse 100 100 Oximetry 02/20/19 02/20/19 02/20/19 04:01 04:11 04:21 Temperature Pulse Rate 67 62 67 Respiratory 14 10 L 9 L Rate Blood Pressure 118/58 119/53 119/53 O2 Sat by Pulse 100 98 100 Oximetry 02/20/19 02/20/19 02/20/19 04:31 04:41 04:51 Temperature Pulse Rate 70 67 65 Respiratory 7 L 13 10 L Rate Blood Pressure 119/53 118/58 118/58 O2 Sat by Pulse 100 100 100 Oximetry 02/20/19 02/20/19 02/20/19 05:00 05:11 05:21 Temperature Pulse Rate 69 69 68 Respiratory 11 L 15 9 L Rate Blood Pressure 142/69 142/69 142/69 O2 Sat by Pulse 92 96 92 Oximetry 02/20/19 02/20/19 02/20/19 05:31 05:41 05:51 Temperature Pulse Rate 68 70 67 Respiratory 10 L 10 L 8 L Rate Blood Pressure 142/69 142/69 142/69 O2 Sat by Pulse 99 93 96 Oximetry 02/20/19 06:00 Temperature Pulse Rate 60 Respiratory 11 L Rate Blood Pressure 124/52 O2 Sat by Pulse 91 Oximetry - General Appearance General appearance: well-developed, appears stated age, other (no distress) EENT: ATNC, PERRL Neck: supple Respiratory: Present: Clear to Ascultation Cardiology: regular, S1S2, no murmurs Gastrointestinal: normoactive bowel sounds, no tenderness, no distended Integumentary: other (R foot covered with dressing) Neurologic: other (able to move extremities, blindness) Musculoskeletal: other (R foot tenderness noted, L arm AVF) - Lab 02/20/19 04:52 02/20/19 04:52 Most recent lab results Calcium 8.5 mg/dL (8.4-10.2) 02/20/19 04:52 Medications & Allergies - Medications Allergies/Adverse Reactions: Allergies Iodinated Contrast- Oral and IV Dye Allergy (Verified 11/25/18 15:48) Hives, Rash Penicillins Allergy (Verified 11/25/18 15:48) Hives Home Medications: Home Medications Medication Instructions Recorded Confirmed Last Taken Type B Complex 11/Folic/C/Biot/Zinc 1 each PO DAILY 09/06/15 02/16/19 11/25/18 20:00 History [Dialyvite with Zinc Tablet] Lispro Insulin [Humalog] 7 unit SQ AC 11/25/18 02/16/19 Unknown History Pantoprazole Sodium 40 mg PO DAILY 11/25/18 02/16/19 11/26/18 05:00 History amLODIPine [Norvasc] 5 mg PO DAILY 11/25/18 02/16/19 11/28/18 History 2.5 Ranitidine HCl [Zantac] 300 mg PO BID 02/16/19 02/16/19 Unknown History Calcium Acetate 667 mg PO AC 02/18/19 02/18/19 Unknown History Levothyroxine 0.05 mg PO QDAY 02/18/19 02/18/19 Unknown History Lyrica 75 mg PO HS 02/18/19 02/18/19 Unknown History Meloxicam 7.5 mg PO QDAY 02/18/19 02/18/19 Unknown History Pravastatin 40 mg PO HS 02/18/19 02/18/19 Unknown History Zetia 10 mg PO HS 02/18/19 02/18/19 Unknown History Active Medications: Generic Name Dose Route Start Last Admin Trade Name Freq PRN Reason Stop Dose Admin Albuterol 2.5 mg 02/16/19 16:32 Proventil IH Q3HRT PRN Shortness Of Breath Amlodipine Besylate 5 mg 02/17/19 10:00 02/19/19 10:32 Norvasc PO Not Given DAILY [facility] Aspirin 81 mg 02/19/19 14:00 02/19/19 17:32 Halfprin Ec PO Not Given QDAY [facility] Clopidogrel Bisulfate 75 mg 02/19/19 14:00 02/19/19 17:32 Plavix PO Not Given QDAY [facility] Dextrose 50 ml 02/16/19 16:35 D50w (25gm) Syringe IV PRN PRN Hypoglycemia Diphenhydramine HCl 25 mg 02/19/19 07:52 02/20/19 04:50 Benadryl IV 25 mg Q6H PRN Administration Itching Epoetin [place] 20,000 unit 02/17/19 14:18 Procrit SUB-Q ANNI PRN hemodialysis Famotidine 10 mg 02/16/19 22:00 02/19/19 22:06 Pepcid PO 10 mg BID [facility] Administration Heparin Sodium (Porcine) 5,000 unit 02/18/19 22:00 02/20/19 07:05 Heparin SUB-Q Not Given Q8HR [facility] Sodium Chloride 100 mls @ 999 mls/hr 02/17/19 14:18 Nacl 0.9% IV ANNI PRN Hypotension Vancomycin HCl 1 gm in 250 mls @ 167.007 mls/hr 02/19/19 20:00 02/19/19 21:00 Vancomycin/Ns 1 Gm/250 Ml IV 167.007 mls/hr TuThSa JUAQUIN Administration Sodium Chloride 500 mls @ 0 mls/hr 02/19/19 15:19 Nacl 0.9% 500 Ml IV ONCE [facility]IN As Directed Insulin Glargine 10 units 02/18/19 22:00 02/19/19 22:06 Lantus SUB-Q 10 units QHS [facility]UA[facility]IN Administration Insulin Human Lispro 0 unit 02/19/19 11:30 02/20/19 07:20 Humalog SUB-Q Not Given ACHS [facility] Protocol Morphine Sulfate 2 mg 02/17/19 23:37 02/20/19 07:37 Morphine IV 2 mg Q3H PRN Administration Pain, Moderate (4-6) Multivit/Ca Carb/B Cmplx/FA/Prenat 1 cap 02/17/19 10:00 02/19/19 10:35 Renal Caps PO 1 cap QDAY [facility]UA[facility]IN Administration Ondansetron HCl 4 mg 02/18/19 11:34 Zofran IV Q6H PRN Nausea And Vomiting Oxycodone/Acetaminophen 1 tab 02/16/19 16:32 02/19/19 19:42 Percocet 5/325 PO 1 tab Q6H PRN Administration Pain, Moderate (4-6) Sodium Chloride 10 ml 02/16/19 22:00 02/19/19 22:08 Sodium Chloride Flush Syringe 10 Ml IV 10 ml BID JUAQUIN Administration Sodium Chloride 10 ml 02/16/19 16:32 Sodium Chloride Flush Syringe 10 Ml IV PRN PRN LINE FLUSH
--- NOTE | 2019-02-20 10:50 | Progress Note ---
Assessment and Plan Cultures: Blood cultures 02/16/2019 grew MRSA 3 of 4 bottles. Blood cultures 02/18/2019 no growth today Assessment: 78 y/o female with history of ESRD on HD, GERD, HTN, Hypothyroidism, CHF, right leg gangrene with chronic wounds s/p right great toe amputation on 11/26/2018 failed HBOT, pending further amputation admitted on 02/16/2019 due to worsening right foot pain: 1) Sepsis: leukcoytosis better. Etiology likely MRSA bacteremia. 2) MRSA bacteremia: source right foot. Blood cultures 02/16/2019 grew MRSA 3 of 4 bottles. Blood cultures 02/18/2019 no growth today. 3) PVD with right critical limb ischemia: Patient underwent 02/18 right lower extremity angiography demonstrating 70% SFA stenosis in the mid to distal portion, complete occlusion of the posterior tibial artery and long segment occlusion of the anterior tibial artery with perineal runoff to the foot. Treatment of the SFA lesion with angioplasty and drug coated balloon with residual less than 10% stenosis. Treatment of the anterior tibial artery with atherectomy and angioplasty with residual attended 20% stenosis. Recommendations: - repeat blood cultures - obtain TTE - pending - continue vancomycin with PK consult - to have right BKA today - Duration IV antibiotics 4 weeks at discharge, will arrange IV antibiotics on HD - observe WBC during weekend Dr Sahu is covering this weekend Will follow. Julia Tariq MD Infectious Diseases Executive Chairman Of The Board [facility] ([facility]) M [phone] O [phone] Subjective Date of service: 02/20/19 Principal diagnosis: peripheral vascular disease with nonhealing right foot wounds Interval history: Patient is more alert follows commands c/o right foot pain. No fever. Objective - Exam Narrative Exam: General appearance: Alert in NAD getting TTE Eyes: anicteric sclerae, moist conjunctivae; no lid-lag; PERRLA HENT: Atraumatic; oropharynx limited Neck: Trachea midline; supple, no thyromegaly or lymphadenopathy Lungs: CTA CV: RRR no murmur Abdomen: Soft, non-tender; no masses or hepatosplenomegaly Extremities:right foot with discoloration covered with dressings Skin: Normal temperature, turgor and texture; no rash, ulcers or subcutaneous nodules Psych: no agitated. Neuro: alert and oriented x 3. Moving all extermities left AVF - Constitutional Vitals: Vital Signs Temp Pulse Resp BP Pulse Ox 98.4 F 60 11 L 124/52 91 02/20/19 10:13 02/20/19 10:13 02/20/19 10:13 02/20/19 10:13 02/20/19 10:13 Temperature -Last 24 Hours Temperature 98.4 F Temperature 98.4 F Temperature 97.4 F Temperature 97.8 F Temperature 96.6 F Temperature 96.6 F Temperature 96.7 F Temperature 97.1 F Temperature 97.3 F Temperature 97.3 F Temperature 97.3 F Temperature 97.3 F - Labs CBC & Chem 7: 02/20/19 04:52 02/20/19 04:52 Labs: Abnormal lab results 02/18/19 02/19/19 02/19/19 Range/Units 13:20 11:32 15:15 WBC (4.5-11.0) K/mm3 Hgb (10.1-14.3) gm/dl Hct (30.3-42.9) % MCV (79-97) fl MCH (28-32) pg RDW (13.2-15.2) % Seg Neuts % (Manual) (40.0-70.0) % Lymphocytes % (Manual) (13.4-35.0) % Nucleated RBC % (0.0-0.9) % Seg Neutrophils # Man (1.8-7.7) K/mm3 Lymphocytes # (Manual) (1.2-5.4) K/mm3 Chloride (98-107) mmol/L BUN (7-17) mg/dL Creatinine (0.7-1.2) mg/dL Glucose (65-100) mg/dL POC Glucose 122 H (70-105) Crossmatch See Detail See Detail 02/19/19 02/19/19 02/19/19 Range/Units 16:26 20:55 21:25 WBC (4.5-11.0) K/mm3 Hgb 9.9 L D (10.1-14.3) gm/dl Hct (30.3-42.9) % MCV (79-97) fl MCH (28-32) pg RDW (13.2-15.2) % Seg Neuts % (Manual) (40.0-70.0) % Lymphocytes % (Manual) (13.4-35.0) % Nucleated RBC % (0.0-0.9) % Seg Neutrophils # Man (1.8-7.7) K/mm3 Lymphocytes # (Manual) (1.2-5.4) K/mm3 Chloride (98-107) mmol/L BUN (7-17) mg/dL Creatinine (0.7-1.2) mg/dL Glucose (65-100) mg/dL POC Glucose 126 H 247 H (70-105) Crossmatch 02/20/19 02/20/19 Range/Units 04:52 04:52 WBC 17.6 H (4.5-11.0) K/mm3 Hgb 9.5 L (10.1-14.3) gm/dl Hct 30.1 L (30.3-42.9) % MCV 77 L (79-97) fl MCH 24 L (28-32) pg RDW 20.9 H (13.2-15.2) % Seg Neuts % (Manual) 96.0 H (40.0-70.0) % Lymphocytes % (Manual) 1.0 L (13.4-35.0) % Nucleated RBC % 1.0 H (0.0-0.9) % Seg Neutrophils # Man 16.9 H (1.8-7.7) K/mm3 Lymphocytes # (Manual) 0.2 L (1.2-5.4) K/mm3 Chloride 96.5 L (98-107) mmol/L BUN 22 H (7-17) mg/dL Creatinine 3.4 H (0.7-1.2) mg/dL Glucose 134 H (65-100) mg/dL POC Glucose (70-105) Crossmatch
[2019-02-20] MEDS: NORVASC PO SCH (11:48)
[2019-02-20] MEDS: HALFPRIN EC PO SCH (11:48)
[2019-02-20] MEDS: PEPCID PO SCH ×2 (11:49→22:16)
[2019-02-20] MEDS: PLAVIX PO SCH (11:49)
[2019-02-20] MEDS: Renal Caps PO SCH (11:50)
[2019-02-20] MEDS: SODIUM CHLORIDE FLUSH SYRINGE 10 ML IV SCH ×2 (11:51→22:16)
[2019-02-20] MEDS ORDERED: NACL 0.9% 1000 ML 1,000 ML IV SCH (12:00)
[2019-02-20] MEDS ORDERED: SUBLIMAZE IV ONE (12:00)
[2019-02-20] MEDS ORDERED: DIPRIVAN 10 MG/ML IV ONE (13:12)
[2019-02-20] MEDS ORDERED: SUBLIMAZE ONE ×2 (13:12→15:23)
--- NOTE | 2019-02-20 13:12 | Anesthesia Day of Surgery ---
Anesthesia Day of Surgery - Day of Surgery Patient Examined: Yes Patient H&P Reviewed: Yes Patient is NPO: Yes
[2019-02-20] MEDS ORDERED: ZOFRAN IV PRN (13:13)
[2019-02-20] MEDS ORDERED: SUBLIMAZE IV PRN (13:13)
[2019-02-20] MEDS ORDERED: XYLOCAINE CARDIAC IV ONE (13:14)
[2019-02-20] MEDS ORDERED: TYLENOL PO ONE (13:18)
[2019-02-20] MEDS ORDERED: TYLENOL ONE (13:25)
[2019-02-20] MEDS ORDERED: TYLENOL PO NR (14:00)
[2019-02-20] MEDS ORDERED: NEURONTIN PO NR ×2 (14:00)
[2019-02-20] MEDS ORDERED: NEO SYNEPHRINE/NS Syringe(OR USE) IV ONE (14:00)
[2019-02-20] MEDS ORDERED: NACL 0.9% IR ONE (14:15)
[2019-02-20] MEDS ORDERED: ADRENALIN ONE (14:26)
[2019-02-20] MEDS ORDERED: QUELICIN ONE (15:25)
[2019-02-20] MEDS ORDERED: ZOFRAN ONE (15:25)
[2019-02-20] MEDS ORDERED: DILAUDID IM PRN (15:55)
[2019-02-20] MEDS ORDERED: DILAUDID ONE (16:02)
--- NOTE | 2019-02-20 16:33 | Procedure Note ---
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 GETA was administered. Right thigh and leg were prepped and draped. Skin was incised with a long posterior flap. Greater and lesser saphenous veins were ligated and divided. The anterior muscle compartment was divided with the Bovie. The anterior tibial vessels were clamped, divided and ligated with 0-silk stick ties. Tibia and fibula were exposed circumferentially. Tibia and fibula were amputated with a bone saw. The posterior musculature was amputated with a ampu tation knife and the specimen passed off of the table. Posterior tibial and peroneal vessels were clamped and ligated with sutures of 0-silk. Wound was irrigated. Anterior and posterior fascia were approximated with interrupted sutures of 2-0 Vicryl. Skin was approximated with mike. Xeroderm gauze was applied to the incision followed by 4 X 4 fluffs, Kerlix roll and Coban. Pt tolerated the procedure well. She was taken to PACU in stable condition. Anesthesia: GETA Surgeon: OMER SANDOVAL Estimated blood loss: 50-100ml Pathology: list (Right leg and foot) Specimen disposition: to lab Condition: stable Disposition: PACU
--- NOTE | 2019-02-20 17:09 | Progress Note ---
Assessment and Plan Assessment and plan: 78 YO Female with ESRD on HD (T,Thur,Sa), RLE gangrene pending amputation, GERD, HTN, Hypothyroidism, Diastolic CHF presents to ED for evaluation. Pt states that she has experienced pain in her right foot. Pt states that her pain is 4-6/10, constant, and not currently controlled by current medication. EMS notified and upon arrival the patient was found to be in distress. Pt transported to [facility]. Pt seen and evaluated in ED and found to have Sepsis secondary to RLE Gangrene, ESRD, and Acidosis. Surgery consulted in ED, Nephrology consulted in ED. Pt admitted to [facility]. Daughter acknowledges understanding and agreement with care plan. Prior admission on 11/29/18 reviewed. All listed medication reconciled at time of admission. Right lower extremity gangrene - Dr. Munoz is following the patient - scheduled to have amputation today severe anemaia - transfused 2 units of blood yesterday and h/h is stable. Sepsis, with MRSA bacteremia - Patient is on IV vancomycin, sensitivities pending - ID consult appreciated End-stage renal disease on hemodialysis - Continue dialysis as scheduled Peripheral arterial disease - Vascular surgery consulted - Did angiogram -Impression: 1) Aortography and right lower extremity angiography demonstrating 70% SFA stenosis in the mid to distal portion, complete occlusion of the posterior tibial artery and long segment occlusion of the anterior tibial artery with perineal runoff to the foot. 2) Treatment of the SFA lesion with angioplasty and drug coated balloon with residual less than 10% stenosis. 3: Treatment of the anterior tibial artery with atherectomy and angioplasty with residual attended 20% stenosis DVT prophylaxis; heparin was held for the procedure. Disposition; continue inpatient care History Interval history: Patient was seen and evaluated this morning at the bedside, patient didn't have any complaints. Hospitalist Physical - Physical exam Narrative exam: Not in cardiopulmonary distress. The patient appeared well nourished and normally developed. Vital signs as documented. Head exam is unremarkable. No scleral icterus . Neck is without jugular venous distension, thyromegaly, or carotid bruits. Lungs are clear to auscultation. Cardiac exam reveals regular rate and Rhythm. Abdominal exam reveals normal bowel sounds, no masses, no organomegaly and no aortic enlargement. Extremities clean dressing in the right foot. LICENSED DIRECT ENTRY MIDWIFE: Alert and oriented 3. No focal weakness. - Constitutional Vitals: Temp Pulse Resp BP Pulse Ox 97.3 F L 75 12 153/36 100 02/20/19 16:15 02/20/19 16:15 02/20/19 16:15 02/20/19 16:15 02/20/19 16:15 General appearance: Present: no acute distress Results - Labs CBC & Chem 7: 02/20/19 04:52 02/20/19 04:52 Labs: Laboratory Last Values WBC 17.6 K/mm3 (4.5-11.0) H 02/20/19 04:52 RBC 3.94 M/mm3 (3.65-5.03) 02/20/19 04:52 Hgb 9.5 gm/dl (10.1-14.3) L 02/20/19 04:52 Hct 30.1 % (30.3-42.9) L 02/20/19 04:52 MCV 77 fl (79-97) L 02/20/19 04:52 MCH 24 pg (28-32) L 02/20/19 04:52 MCHC 32 % (30-34) 02/20/19 04:52 RDW 20.9 % (13.2-15.2) H 02/20/19 04:52 Plt Count 268 K/mm3 (140-440) 02/20/19 04:52 Lymph % (Auto) Certified Court/Medical Interpreter 02/19/19 04:48 [place] % (Auto) Certified Court/Medical Interpreter 02/19/19 04:48 Eos % (Auto) Certified Court/Medical Interpreter 02/19/19 04:48 Baso % (Auto) Certified Court/Medical Interpreter 02/19/19 04:48 Lymph # Certified Court/Medical Interpreter 02/19/19 04:48 [place] # Certified Court/Medical Interpreter 02/19/19 04:48 Eos # Certified Court/Medical Interpreter 02/19/19 04:48 Baso # Certified Court/Medical Interpreter 02/19/19 04:48 Add Manual Diff Complete 02/20/19 04:52 Total Counted 100 02/20/19 04:52 Seg Neutrophils % Certified Court/Medical Interpreter 02/18/19 05:32 Seg Neuts % (Manual) 96.0 % (40.0-70.0) H 02/20/19 04:52 0 % 02/20/19 04:52 1.0 % (13.4-35.0) L 02/20/19 04:52 Reactive Lymphs % (Man) 0 % 02/20/19 04:52 3.0 % (0.0-7.3) 02/20/19 04:52 0 % (0.0-4.3) 02/20/19 04:52 0 % (0.0-1.8) 02/20/19 04:52 0 % 02/20/19 04:52 0 % 02/20/19 04:52 0 % 02/20/19 04:52 0 % 02/20/19 04:52 Nucleated RBC % 1.0 % (0.0-0.9) H 02/20/19 04:52 Seg Neutrophils # Certified Court/Medical Interpreter 02/19/19 04:48 Seg Neutrophils # Man 16.9 K/mm3 (1.8-7.7) H 02/20/19 04:52 Band Neutrophils # 0.0 K/mm3 02/20/19 04:52 0.2 K/mm3 (1.2-5.4) L 02/20/19 04:52 Abs React Lymphs (Man) 0.0 K/mm3 02/20/19 04:52 0.5 K/mm3 (0.0-0.8) 02/20/19 04:52 0.0 K/mm3 (0.0-0.4) 02/20/19 04:52 0.0 K/mm3 (0.0-0.1) 02/20/19 04:52 0.0 K/mm3 02/20/19 04:52 0.0 K/mm3 02/20/19 04:52 0.0 K/mm3 02/20/19 04:52 Blast Cells # 0.0 K/mm3 02/20/19 04:52 WBC Morphology Not Reportable 02/20/19 04:52 Hypersegmented Neuts Not Reportable 02/20/19 04:52 Hyposegmented Neuts Not Reportable 02/20/19 04:52 Hypogranular Neuts Not Reportable 02/20/19 04:52 Not Reportable 02/20/19 04:52 Not Reportable 02/20/19 04:52 Not Reportable 02/20/19 04:52 Not Reportable 02/20/19 04:52 Not Reportable 02/20/19 04:52 Not Reportable 02/20/19 04:52 Consistent w auto 02/20/19 04:52 Not Reportable 02/20/19 04:52 Plt Clumps, EDTA Not Reportable 02/20/19 04:52 Not Reportable 02/20/19 04:52 Not Reportable 02/20/19 04:52 Not Reportable 02/20/19 04:52 Plt Morphology Comment Not Reportable 02/20/19 04:52 RBC Morphology Not Reportable 02/20/19 04:52 Dimorphic RBCs Not Reportable 02/20/19 04:52 Not Reportable 02/20/19 04:52 Few 02/20/19 04:52 Few 02/20/19 04:52 1+ 02/20/19 04:52 Not Reportable 02/20/19 04:52 Not Reportable 02/20/19 04:52 Not Reportable 02/20/19 04:52 Not Reportable 02/20/19 04:52 Not Reportable 02/20/19 04:52 Not Reportable 02/20/19 04:52 Not Reportable 02/20/19 04:52 Not Reportable 02/20/19 04:52 Not Reportable 02/20/19 04:52 Not Reportable 02/20/19 04:52 Not Reportable 02/20/19 04:52 Not Reportable 02/20/19 04:52 Not Reportable 02/20/19 04:52 Not Reportable 02/20/19 04:52 Not Reportable 02/20/19 04:52 Acanthocytes (Spur) Not Reportable 02/20/19 04:52 Rouleaux Not Reportable 02/20/19 04:52 Not Reportable 02/20/19 04:52 Not Reportable 02/20/19 04:52 Not Reportable 02/20/19 04:52 Not Reportable 02/20/19 04:52 Hem Pathologist Commnt No 02/20/19 04:52 APTT 23.5 Sec. (24.2-36.6) L 02/16/19 13:54 Sodium 140 mmol/L (137-145) 02/20/19 04:52 Potassium 4.0 mmol/L (3.6-5.0) 02/20/19 04:52 Chloride 96.5 mmol/L (98-107) L 02/20/19 04:52 Carbon Dioxide 26 mmol/L (22-30) 02/20/19 04:52 22 mmol/L 02/20/19 04:52 BUN 22 mg/dL (7-17) H 02/20/19 04:52 3.4 mg/dL (0.7-1.2) H 02/20/19 04:52 Estimated GFR 16 ml/min 02/20/19 04:52 6 % 02/20/19 04:52 Glucose 134 mg/dL (65-100) H 02/20/19 04:52 POC Glucose 178 (70-105) H 02/20/19 16:05 Lactic Acid 1.80 mmol/L (0.7-2.0) 02/16/19 Unknown Calcium 8.5 mg/dL (8.4-10.2) 02/20/19 04:52 0.40 mg/dL (0.1-1.2) 02/16/19 13:54 AST 41 units/L (5-40) H 02/16/19 13:54 ALT 25 units/L (7-56) 02/16/19 13:54 252 units/L (35-129) H 02/16/19 13:54 29.60 mg/dL (0.00-1.30) H 02/18/19 22:44 7.3 g/dL (6.3-8.2) 02/16/19 13:54 2.9 g/dL (3.9-5) L 02/16/19 13:54 0.7 % 02/16/19 13:54 Random Vancomycin 15.5 ug/mL (0-40.0) 02/19/19 04:48 Blood Type B POSITIVE 02/19/19 15:15 Antibody Screen Negative 02/19/19 15:15 Crossmatch See Detail 02/19/19 15:15 Active Medications - Current Medications Current Medications: Generic Name Dose Route Start Last Admin Trade Name Freq PRN Reason Stop Dose Admin Acetaminophen 650 mg 02/20/19 14:00 02/20/19 13:25 Tylenol PO 02/20/19 23:50 650 mg PREOP NR Administration Albuterol 2.5 mg 02/16/19 16:32 Proventil IH Q3HRT PRN Shortness Of Breath Amlodipine Besylate 5 mg 02/17/19 10:00 02/20/19 11:48 Norvasc PO Not Given DAILY JUAQUIN Aspirin 81 mg 02/19/19 14:00 02/20/19 11:48 Halfprin Ec PO Not Given QDAY JUAQUIN Clopidogrel Bisulfate 75 mg 02/19/19 14:00 02/20/19 11:49 Plavix PO Not Given QDAY JUAQUIN Dextrose 50 ml 02/16/19 16:35 D50w (25gm) Syringe IV PRN PRN Hypoglycemia Diphenhydramine HCl 25 mg 02/19/19 07:52 02/20/19 04:50 Benadryl IV 25 mg Q6H PRN Administration Itching Epoetin [place] 20,000 unit 02/17/19 14:18 Procrit SUB-Q ANNI PRN hemodialysis Famotidine 10 mg 02/16/19 22:00 02/20/19 11:49 Pepcid PO Not Given BID JUAQUIN Fentanyl 50 mcg 02/20/19 13:13 Sublimaze IV 02/20/19 23:59 Q5MIN PRN Pain , Severe (7-10) Gabapentin 300 mg 02/20/19 14:00 02/20/19 13:25 Neurontin PO 02/20/19 23:59 300 mg PREOP NR Administration Gabapentin 300 mg 02/20/19 14:00 Neurontin PO 02/20/19 23:59 PREOP NR Heparin Sodium (Porcine) 5,000 unit 02/18/19 22:00 02/20/19 07:05 Heparin SUB-Q Not Given Q8HR JUAQUIN Hydromorphone HCl 0.5 mg 02/20/19 15:55 Dilaudid IM Q10M PRN Pain , Severe (7-10) Sodium Chloride 100 mls @ 999 mls/hr 02/17/19 14:18 Nacl 0.9% IV ANNI PRN Hypotension Vancomycin HCl 1 gm in 250 mls @ 167.007 mls/hr 02/19/19 20:00 02/19/19 21:00 Vancomycin/Ns 1 Gm/250 Ml IV 167.007 mls/hr TuThSa JUAQUIN Administration Sodium Chloride 500 mls @ 0 mls/hr 02/19/19 15:19 Nacl 0.9% 500 Ml IV ONCE JUAQUIN As Directed Sodium Chloride 1,000 mls @ 42 mls/hr 02/20/19 12:00 Nacl 0.9% 1000 Ml IV DIRECT JUAQUIN Insulin Glargine 10 units 02/18/19 22:00 02/19/19 22:06 Lantus SUB-Q 10 units QHS JUAQUIN Administration Insulin Human Lispro 0 unit 02/19/19 11:30 02/20/19 11:53 Humalog SUB-Q Not Given ACHS [facility] Protocol Morphine Sulfate 2 mg 02/17/19 23:37 02/20/19 07:37 Morphine IV 2 mg Q3H PRN Administration Pain, Moderate (4-6) Multivit/Ca Carb/B Cmplx/FA/Prenat 1 cap 02/17/19 10:00 02/20/19 11:50 Renal Caps PO Not Given QDAY [facility] Ondansetron HCl 4 mg 02/18/19 11:34 Zofran IV Q6H PRN Nausea And Vomiting Ondansetron HCl 4 mg 02/20/19 13:13 Zofran IV 02/20/19 23:59 ONCE PRN Nausea And Vomiting Oxycodone/Acetaminophen 1 tab 02/16/19 16:32 02/19/19 19:42 Percocet 5/325 PO 1 tab Q6H PRN Administration Pain, Moderate (4-6) Sodium Chloride 10 ml 02/16/19 22:00 02/20/19 11:51 Sodium Chloride Flush Syringe 10 Ml IV Not Given BID JUAQUIN Sodium Chloride 10 ml 02/16/19 16:32 Sodium Chloride Flush Syringe 10 Ml IV PRN PRN LINE FLUSH Nutrition/Malnutrition Assess - Dietary Evaluation Nutrition/Malnutrition Findings: Nutrition Notes Start: 02/17/19 16:06 Freq: Status: Active Protocol: Document 02/17/19 16:06 RM (Rec: 02/17/19 16:08 [id number]) Nutrition Notes Need for Assessment generated from: reliability technologist,MST Initial or Follow up Assessment Current Diagnosis Sepsis,Hypertension,Heart Failure Other Pertinent Diagnosis ESRD on HD (T/R/S), GERD, Gangrene of toe of R foot Current Diet Renal Labs/Tests Reviewed Pertinent Medications Reviewed Height 5 ft 3 in Weight 64.4 kg Usual Body Weight 63 kg [place] Body Weight (kg) 52.27 BMI 25.1 Subjective/Other Information Screened for malnutrition and skin risk. Jd 11 points. Pt stated that S[employer]ER her appetite was poor and that she was not eating X 2- 2 1/2 weeks. Stated that her appetite is poor now. Noted breakfast at bedside w/ 25% eaten. Stated dry wt is 63 kg. No temporal or orbital wasting . Percent of energy/protein needs met: 40%/25% Burn Absent Trauma Absent #1 Nutrition Diagnosis Inadequate oral intake Etiology decreased appetite As Evidenced by Signs and Symptoms breakfast at bedside w/25% eaten Is patient on ventilator? No Is Patient Ambulatory and/or Out of Bed No REE-([facility]-confined to bed) 1324.368 Calculation Used for Recommendations [facility] Additional Notes Protein Needs: 77-97g (1.2-1. 5g/kg) Fluid Needs: 1 ml/kcal Nutrition Intervention Change Diet Order: Continue current Add Supplement/Snack (indicate name/kcal Nepro 1 daily /protein ) Provides kCal: 425 Provides Protein (gm) 19 Goal #1 Meet at least 75% of calorie and protein needs via PO and ONS intakes Anticipated Discharge Needs: Renal diet Follow-Up By: 02/20/19 Additional Comments Follow for PO and ONS intakes
[2019-02-20] MEDS: PERCOCET 5/325 PO PRN (18:28)
[2019-02-20] MEDS: LANTUS SUB-Q SCH (22:15)
--- NOTE | 2019-02-20 22:24 | Post Anesthesia Evaluation ---
- Post Anesthesia Evaluation Patient Participated: Yes Airway Patent: Yes Stable Respiratory Function: Yes Nausea/Vomiting: No Temp > 96.8F: Yes Pain Manageable: Yes Adequeate Hydration: Yes Anesthesia Complications: No Block Receding Appropriately: Not Applicable Patient on Ventilator: No
[2019-02-21] MEDS: PERCOCET 5/325 PO PRN ×2 (00:41→11:50)
[2019-02-21 04:20] LABS: Hematocrit 29.9 % (30.3-42.9); Hemoglobin 9.5 gm/dl (10.1-14.3); Mean Corpuscular HGB Conc 32 % (30-34); Mean Corpuscular Volume 77 fl (79-97); Platelet Count 276 K/mm3 (140-440); Red Blood Count 3.89 M/mm3 (3.65-5.03)
[2019-02-21 04:23] LABS: Red Cell Distribution Width 21.8 % (13.2-15.2)
[2019-02-21 04:38] LABS: Calcium 7.9 mg/dL (8.4-10.2)
[2019-02-21] MEDS: MORPHINE IV PRN ×3 (05:23→20:51)
[2019-02-21 05:26] LABS: Anisocytosis 1+; Band Neutrophils # (Manual) 0.1 K/mm3; Basophils % (Manual) 0 % (0.0-1.8); Eosinophils % (Manual) 0 % (0.0-4.3); Hypochromasia 1+; Total Cells Counted 100
[2019-02-21] MEDS: HEPARIN SUB-Q SCH ×3 (05:35→20:57)
[2019-02-21] MEDS: HumaLOG SUB-Q SCH ×4 (07:56→16:29)
[2019-02-21] MEDS: PROCRIT SUB-Q PRN (09:21)
--- NOTE | 2019-02-21 10:14 | Progress Note ---
Assessment and Plan 1. ESRD: Continue hemodialysis three times a week, TTS schedule. HD today. 2. Sepsis: 2/2 to right LE cellulitis. 3. Anemia: S/p 2 units of PRBC on 02/19/19. Epogen with HD. 4. PAD: S/p R LE angioplasty. S/p R BKA. 5. GILBERTO: CPAP. 6. DM type 2. 7. HTN. Subjective Date of service: 02/21/19 Principal diagnosis: peripheral vascular disease with nonhealing right foot wounds Interval history: Patient was seen and examined at the bedside. No new complaint. Objective - Vital Signs Vital signs: Vital Signs - 12hr 02/20/19 02/20/19 02/20/19 22:20 22:30 22:40 Temperature Pulse Rate 74 72 71 Respiratory 7 L 7 L 6 L Rate Blood Pressure 135/48 135/48 139/51 O2 Sat by Pulse 98 99 99 Oximetry O2 Sat by Pulse Oximetry [ Throughout] 02/20/19 02/20/19 02/20/19 22:50 23:00 23:10 Temperature Pulse Rate 65 72 72 Respiratory 6 L 6 L 7 L Rate Blood Pressure 147/48 143/43 139/51 O2 Sat by Pulse 99 99 100 Oximetry O2 Sat by Pulse Oximetry [ Throughout] 02/20/19 02/20/19 02/20/19 23:20 23:30 23:40 Temperature Pulse Rate 64 70 72 Respiratory 8 L 7 L 8 L Rate Blood Pressure 142/47 140/41 140/41 O2 Sat by Pulse 100 100 100 Oximetry O2 Sat by Pulse Oximetry [ Throughout] 02/20/19 02/21/19 02/21/19 23:50 00:00 00:06 Temperature Pulse Rate 70 72 71 Respiratory 8 L 9 L 9 L Rate Blood Pressure 140/47 138/53 138/53 O2 Sat by Pulse 100 100 99 Oximetry O2 Sat by Pulse Oximetry [ Throughout] 02/21/19 02/21/19 02/21/19 00:10 00:20 00:30 Temperature 96.7 F L Pulse Rate 62 62 61 Respiratory 7 L 7 L 11 L Rate Blood Pressure 138/53 131/41 131/41 O2 Sat by Pulse 100 100 100 Oximetry O2 Sat by Pulse Oximetry [ Throughout] 02/21/19 02/21/19 02/21/19 00:40 00:41 00:50 Temperature Pulse Rate 69 74 Respiratory 10 L 11 L 16 Rate Blood Pressure 119/21 137/44 O2 Sat by Pulse 100 99 Oximetry O2 Sat by Pulse Oximetry [ Throughout] 02/21/19 02/21/19 02/21/19 01:00 01:10 01:20 Temperature Pulse Rate 71 64 63 Respiratory 12 9 L 8 L Rate Blood Pressure 137/44 142/52 144/51 O2 Sat by Pulse 100 100 100 Oximetry O2 Sat by Pulse Oximetry [ Throughout] 02/21/19 02/21/19 02/21/19 01:30 01:40 01:50 Temperature Pulse Rate 64 71 70 Respiratory 8 L 7 L 8 L Rate Blood Pressure 140/48 137/44 138/49 O2 Sat by Pulse 100 100 100 Oximetry O2 Sat by Pulse Oximetry [ Throughout] 02/21/19 02/21/19 02/21/19 02:00 02:10 02:20 Temperature Pulse Rate 63 62 61 Respiratory 7 L 8 L 9 L Rate Blood Pressure 135/49 140/48 142/48 O2 Sat by Pulse 99 99 100 Oximetry O2 Sat by Pulse Oximetry [ Throughout] 02/21/19 02/21/19 02/21/19 02:30 02:40 02:50 Temperature Pulse Rate 61 61 61 Respiratory 8 L 8 L 9 L Rate Blood Pressure 133/46 135/49 137/48 O2 Sat by Pulse 99 99 99 Oximetry O2 Sat by Pulse Oximetry [ Throughout] 02/21/19 02/21/19 02/21/19 03:00 03:10 03:20 Temperature Pulse Rate 69 63 61 Respiratory 8 L 9 L 8 L Rate Blood Pressure 143/46 133/46 146/48 O2 Sat by Pulse 99 99 99 Oximetry O2 Sat by Pulse Oximetry [ Throughout] 02/21/19 02/21/19 02/21/19 03:30 03:40 03:50 Temperature Pulse Rate 69 60 61 Respiratory 9 L 8 L 11 L Rate Blood Pressure 132/48 132/48 139/49 O2 Sat by Pulse 99 99 99 Oximetry O2 Sat by Pulse Oximetry [ Throughout] 02/21/19 02/21/19 02/21/19 04:00 04:10 04:20 Temperature 97.8 F Pulse Rate 64 63 61 Respiratory 8 L 12 11 L Rate Blood Pressure 140/49 132/48 136/48 O2 Sat by Pulse 99 100 100 Oximetry O2 Sat by Pulse Oximetry [ Throughout] 02/21/19 02/21/19 02/21/19 04:30 04:40 04:50 Temperature Pulse Rate 63 62 69 Respiratory 10 L 9 L 8 L Rate Blood Pressure 128/53 128/53 143/50 O2 Sat by Pulse 100 100 100 Oximetry O2 Sat by Pulse Oximetry [ Throughout] 02/21/19 02/21/19 02/21/19 05:00 05:10 05:20 Temperature Pulse Rate 62 67 64 Respiratory 8 L 9 L 8 L Rate Blood Pressure 135/43 135/43 135/51 O2 Sat by Pulse 100 100 100 Oximetry O2 Sat by Pulse Oximetry [ Throughout] 02/21/19 02/21/19 02/21/19 05:23 05:30 05:40 Temperature Pulse Rate 65 66 Respiratory 9 L 8 L 10 L Rate Blood Pressure 138/46 138/46 O2 Sat by Pulse 99 100 Oximetry O2 Sat by Pulse Oximetry [ Throughout] 02/21/19 02/21/19 02/21/19 05:50 06:00 06:10 Temperature Pulse Rate 62 62 69 Respiratory 11 L 8 L 11 L Rate Blood Pressure 144/49 136/50 136/50 O2 Sat by Pulse 100 100 100 Oximetry O2 Sat by Pulse Oximetry [ Throughout] 02/21/19 02/21/19 02/21/19 06:20 06:30 06:40 Temperature Pulse Rate 62 62 61 Respiratory 10 L 9 L 8 L Rate Blood Pressure 141/53 136/46 136/46 O2 Sat by Pulse 99 100 100 Oximetry O2 Sat by Pulse Oximetry [ Throughout] 02/21/19 02/21/19 02/21/19 06:50 07:00 07:10 Temperature Pulse Rate 63 67 61 Respiratory 12 10 L 10 L Rate Blood Pressure 132/40 123/45 123/45 O2 Sat by Pulse 100 98 100 Oximetry O2 Sat by Pulse Oximetry [ Throughout] 02/21/19 02/21/19 02/21/19 07:20 07:30 07:40 Temperature Pulse Rate 62 68 67 Respiratory 10 L 9 L 8 L Rate Blood Pressure 142/49 145/46 128/47 O2 Sat by Pulse 100 100 100 Oximetry O2 Sat by Pulse Oximetry [ Throughout] 02/21/19 02/21/19 02/21/19 07:50 08:08 08:15 Temperature 97.1 F L Pulse Rate 61 64 Respiratory 12 12 Rate Blood Pressure 113/53 149/53 O2 Sat by Pulse 100 99 Oximetry O2 Sat by Pulse 100 Oximetry [ Throughout] 02/21/19 02/21/19 02/21/19 08:30 08:45 09:00 Temperature Pulse Rate 66 61 67 Respiratory Rate Blood Pressure 133/49 150/45 121/46 O2 Sat by Pulse Oximetry O2 Sat by Pulse Oximetry [ Throughout] 02/21/19 02/21/19 02/21/19 09:15 09:30 09:45 Temperature Pulse Rate 62 62 61 Respiratory Rate Blood Pressure 134/52 137/53 142/47 O2 Sat by Pulse Oximetry O2 Sat by Pulse Oximetry [ Throughout] 02/21/19 10:00 Temperature Pulse Rate 66 Respiratory Rate Blood Pressure 140/56 O2 Sat by Pulse Oximetry O2 Sat by Pulse Oximetry [ Throughout] - General Appearance General appearance: well-developed, appears stated age, other (no distress) EENT: ATNC Neck: supple Respiratory: Present: Clear to Ascultation Cardiology: regular, S1S2, no murmurs Gastrointestinal: normoactive bowel sounds, no tenderness, no distended Integumentary: no rash Neurologic: no asterixis, other (dimished vision) Musculoskeletal: other (no edema, R BKA, L arm AVF) Psychiatric: cooperative - Lab 02/21/19 03:48 02/21/19 03:48 Most recent lab results Calcium 7.9 mg/dL (8.4-10.2) L 02/21/19 03:48 Medications & Allergies - Medications Allergies/Adverse Reactions: Allergies Iodinated Contrast- Oral and IV Dye Allergy (Verified 11/25/18 15:48) Hives, Rash Penicillins Allergy (Verified 11/25/18 15:48) Hives Home Medications: Home Medications Medication Instructions Recorded Confirmed Last Taken Type B Complex 11/Folic/C/Biot/Zinc 1 each PO DAILY 09/06/15 02/16/19 11/25/18 20:00 History [Dialyvite with Zinc Tablet] Lispro Insulin [Humalog] 7 unit SQ AC 11/25/18 02/16/19 Unknown History Pantoprazole Sodium 40 mg PO DAILY 11/25/18 02/16/19 11/26/18 05:00 History amLODIPine [Norvasc] 5 mg PO DAILY 11/25/18 02/16/19 11/28/18 History 2.5 Ranitidine HCl [Zantac] 300 mg PO BID 02/16/19 02/16/19 Unknown History Calcium Acetate 667 mg PO AC 02/18/19 02/18/19 Unknown History Levothyroxine 0.05 mg PO QDAY 02/18/19 02/18/19 Unknown History Lyrica 75 mg PO HS 02/18/19 02/18/19 Unknown History Meloxicam 7.5 mg PO QDAY 02/18/19 02/18/19 Unknown History Pravastatin 40 mg PO HS 02/18/19 02/18/19 Unknown History Zetia 10 mg PO HS 02/18/19 02/18/19 Unknown History Active Medications: Generic Name Dose Route Start Last Admin Trade Name Freq PRN Reason Stop Dose Admin Albuterol 2.5 mg 02/16/19 16:32 Proventil IH Q3HRT PRN Shortness Of Breath Amlodipine Besylate 5 mg 02/17/19 10:00 02/20/19 11:48 Norvasc PO Not Given DAILY [facility] Aspirin 81 mg 02/19/19 14:00 02/20/19 11:48 Halfprin Ec PO Not Given QDAY [facility] Clopidogrel Bisulfate 75 mg 02/19/19 14:00 02/20/19 11:49 Plavix PO Not Given QDAY [facility] Dextrose 50 ml 02/16/19 16:35 D50w (25gm) Syringe IV PRN PRN Hypoglycemia Diphenhydramine HCl 25 mg 02/19/19 07:52 02/20/19 04:50 Benadryl IV 25 mg Q6H PRN Administration Itching Epoetin [place] 20,000 unit 02/17/19 14:18 02/21/19 09:21 Procrit SUB-Q 20,000 unit ANNI PRN Administration hemodialysis Famotidine 10 mg 02/16/19 22:00 02/20/19 22:16 Pepcid PO 10 mg BID JUAQUIN Administration Heparin Sodium (Porcine) 5,000 unit 02/18/19 22:00 02/21/19 05:35 Heparin SUB-Q Not Given Q8HR JUAQUIN Hydromorphone HCl 0.5 mg 02/20/19 15:55 Dilaudid IM Q10M PRN Pain , Severe (7-10) Sodium Chloride 100 mls @ 999 mls/hr 02/17/19 14:18 Nacl 0.9% IV ANNI PRN Hypotension Vancomycin HCl 1 gm in 250 mls @ 167.007 mls/hr 02/19/19 20:00 02/19/19 21:00 Vancomycin/Ns 1 Gm/250 Ml IV 167.007 mls/hr TuThSa JUAQUIN Administration Sodium Chloride 500 mls @ 0 mls/hr 02/19/19 15:19 Nacl 0.9% 500 Ml IV ONCE JUAQUIN As Directed Sodium Chloride 1,000 mls @ 42 mls/hr 02/20/19 12:00 Nacl 0.9% 1000 Ml IV DIRECT JUAQUIN Insulin Glargine 10 units 02/18/19 22:00 02/20/19 22:15 Lantus SUB-Q 10 units QHS JUAQUIN Administration Insulin Human Lispro 0 unit 02/19/19 11:30 02/21/19 07:56 Humalog SUB-Q Not Given ACHS [facility] Protocol Morphine Sulfate 2 mg 02/17/19 23:37 02/21/19 05:23 Morphine IV 2 mg Q3H PRN Administration Pain, Moderate (4-6) Multivit/Ca Carb/B Cmplx/FA/Prenat 1 cap 02/17/19 10:00 02/20/19 11:50 Renal Caps PO Not Given QDAY [facility] Ondansetron HCl 4 mg 02/18/19 11:34 Zofran IV Q6H PRN Nausea And Vomiting Oxycodone/Acetaminophen 1 tab 02/16/19 16:32 02/21/19 00:41 Percocet 5/325 PO 1 tab Q6H PRN Administration Pain, Moderate (4-6) Sodium Chloride 10 ml 02/16/19 22:00 02/20/19 22:16 Sodium Chloride Flush Syringe 10 Ml IV 10 ml BID JUAQUIN Administration Sodium Chloride 10 ml 02/16/19 16:32 Sodium Chloride Flush Syringe 10 Ml IV PRN PRN LINE FLUSH
[2019-02-21] MEDS: PEPCID PO SCH ×2 (11:50→20:57)
[2019-02-21] MEDS: Renal Caps PO SCH (11:50)
[2019-02-21] MEDS: NORVASC PO SCH (11:50)
[2019-02-21] MEDS: PLAVIX PO SCH (11:53)
[2019-02-21] MEDS: HALFPRIN EC PO SCH (11:53)
[2019-02-21] MEDS: SODIUM CHLORIDE FLUSH SYRINGE 10 ML IV SCH (11:53)
--- NOTE | 2019-02-21 15:28 | Progress Note ---
Assessment and Plan Assessment and plan: 78 YO Female with ESRD on HD (T,Thur,Sa), RLE gangrene pending amputation, GERD, HTN, Hypothyroidism, Diastolic CHF presents to ED for evaluation. Pt states that she has experienced pain in her right foot. Pt states that her pain is 4-6/10, constant, and not currently controlled by current medication. EMS notified and upon arrival the patient was found to be in distress. Pt transported to [facility]. Pt seen and evaluated in ED and found to have Sepsis secondary to RLE Gangrene, ESRD, and Acidosis. Surgery consulted in ED, Nephrology consulted in ED. Pt admitted to [facility]. Daughter acknowledges understanding and agreement with care plan. Prior admission on 11/29/18 reviewed. All listed medication reconciled at time of admission. Right lower extremity gangrene - Dr. Munoz is following the patient -Status post right BKA -PT consult placed severe anemaia - transfused 2 units of blood and h/h is stable. Sepsis, with MRSA bacteremia - Patient is on IV vancomycin - ID consult appreciated - Leukocytosis trended down End-stage renal disease on hemodialysis - Continue dialysis as scheduled Peripheral arterial disease - Vascular surgery consulted - Did angiogram -Impression: 1) Aortography and right lower extremity angiography demonstrating 70% SFA stenosis in the mid to distal portion, complete occlusion of the posterior tibial artery and long segment occlusion of the anterior tibial artery with perineal runoff to the foot. 2) Treatment of the SFA lesion with angioplasty and drug coated balloon with residual less than 10% stenosis. 3: Treatment of the anterior tibial artery with atherectomy and angioplasty with residual attended 20% stenosis DVT prophylaxis; heparin was held for the procedure. Disposition; continue inpatient care History Interval history: Patient was seen and evaluated this morning at the bedside, patient didn't have any complaints. Hospitalist Physical - Physical exam Narrative exam: Not in cardiopulmonary distress. The patient appeared well nourished and normally developed. Vital signs as documented. Head exam is unremarkable. No scleral icterus . Neck is without jugular venous distension, thyromegaly, or carotid bruits. Lungs are clear to auscultation. Cardiac exam reveals regular rate and Rhythm. Abdominal exam reveals normal bowel sounds, no masses, no organomegaly and no aortic enlargement. Extremities right BKA. SAMPLE ROOM SUPERVISOR: Alert and oriented 3. No focal weakness. - Constitutional Vitals: Temp Pulse Resp BP Pulse Ox 97.1 F L 69 11 L 128/63 90 02/21/19 12:02 02/21/19 15:00 02/21/19 15:00 02/21/19 15:00 02/21/19 15:00 General appearance: Present: no acute distress Results - Labs CBC & Chem 7: 02/21/19 03:48 02/21/19 03:48 Labs: Laboratory Last Values WBC 9.6 K/mm3 (4.5-11.0) 02/21/19 03:48 RBC 3.89 M/mm3 (3.65-5.03) 02/21/19 03:48 Hgb 9.5 gm/dl (10.1-14.3) L 02/21/19 03:48 Hct 29.9 % (30.3-42.9) L 02/21/19 03:48 MCV 77 fl (79-97) L 02/21/19 03:48 MCH 24 pg (28-32) L 02/21/19 03:48 MCHC 32 % (30-34) 02/21/19 03:48 RDW 21.8 % (13.2-15.2) H 02/21/19 03:48 Plt Count 276 K/mm3 (140-440) 02/21/19 03:48 Lymph % (Auto) Crystal Report Developer 02/19/19 04:48 [place] % (Auto) Crystal Report Developer 02/19/19 04:48 Eos % (Auto) Crystal Report Developer 02/19/19 04:48 Baso % (Auto) Crystal Report Developer 02/19/19 04:48 Lymph # Crystal Report Developer 02/19/19 04:48 [place] # Crystal Report Developer 02/19/19 04:48 Eos # Crystal Report Developer 02/19/19 04:48 Baso # Crystal Report Developer 02/19/19 04:48 Add Manual Diff Complete 02/21/19 03:48 Total Counted 100 02/21/19 03:48 Seg Neutrophils % Crystal Report Developer 02/18/19 05:32 Seg Neuts % (Manual) 75.0 % (40.0-70.0) H 02/21/19 03:48 1.0 % 02/21/19 03:48 16.0 % (13.4-35.0) 02/21/19 03:48 Reactive Lymphs % (Man) 0 % 02/21/19 03:48 8.0 % (0.0-7.3) H 02/21/19 03:48 0 % (0.0-4.3) 02/21/19 03:48 0 % (0.0-1.8) 02/21/19 03:48 0 % 02/21/19 03:48 0 % 02/21/19 03:48 0 % 02/21/19 03:48 0 % 02/21/19 03:48 Nucleated RBC % Not Reportable 02/21/19 03:48 Seg Neutrophils # Crystal Report Developer 02/19/19 04:48 Seg Neutrophils # Man 7.2 K/mm3 (1.8-7.7) 02/21/19 03:48 Band Neutrophils # 0.1 K/mm3 02/21/19 03:48 1.5 K/mm3 (1.2-5.4) 02/21/19 03:48 Abs React Lymphs (Man) 0.0 K/mm3 02/21/19 03:48 0.8 K/mm3 (0.0-0.8) 02/21/19 03:48 0.0 K/mm3 (0.0-0.4) 02/21/19 03:48 0.0 K/mm3 (0.0-0.1) 02/21/19 03:48 0.0 K/mm3 02/21/19 03:48 0.0 K/mm3 02/21/19 03:48 0.0 K/mm3 02/21/19 03:48 Blast Cells # 0.0 K/mm3 02/21/19 03:48 WBC Morphology Not Reportable 02/21/19 03:48 Hypersegmented Neuts Not Reportable 02/21/19 03:48 Hyposegmented Neuts Not Reportable 02/21/19 03:48 Hypogranular Neuts Not Reportable 02/21/19 03:48 Not Reportable 02/21/19 03:48 Not Reportable 02/21/19 03:48 Not Reportable 02/21/19 03:48 Not Reportable 02/21/19 03:48 Not Reportable 02/21/19 03:48 Not Reportable 02/21/19 03:48 Appears normal 02/21/19 03:48 Not Reportable 02/21/19 03:48 Plt Clumps, EDTA Not Reportable 02/21/19 03:48 Not Reportable 02/21/19 03:48 Not Reportable 02/21/19 03:48 Not Reportable 02/21/19 03:48 Plt Morphology Comment Not Reportable 02/21/19 03:48 RBC Morphology Not Reportable 02/21/19 03:48 Dimorphic RBCs Not Reportable 02/21/19 03:48 Few 02/21/19 03:48 1+ 02/21/19 03:48 Not Reportable 02/21/19 03:48 1+ 02/21/19 03:48 Not Reportable 02/21/19 03:48 Not Reportable 02/21/19 03:48 Not Reportable 02/21/19 03:48 Not Reportable 02/21/19 03:48 Not Reportable 02/21/19 03:48 Not Reportable 02/21/19 03:48 Not Reportable 02/21/19 03:48 Not Reportable 02/21/19 03:48 Not Reportable 02/21/19 03:48 Not Reportable 02/21/19 03:48 Not Reportable 02/21/19 03:48 Not Reportable 02/21/19 03:48 Not Reportable 02/21/19 03:48 Not Reportable 02/21/19 03:48 Not Reportable 02/21/19 03:48 Acanthocytes (Spur) Not Reportable 02/21/19 03:48 Rouleaux Not Reportable 02/21/19 03:48 Not Reportable 02/21/19 03:48 Not Reportable 02/21/19 03:48 Not Reportable 02/21/19 03:48 Not Reportable 02/21/19 03:48 Hem Pathologist Commnt No 02/21/19 03:48 APTT 23.5 Sec. (24.2-36.6) L 02/16/19 13:54 Sodium 137 mmol/L (137-145) 02/21/19 03:48 Potassium 3.9 mmol/L (3.6-5.0) 02/21/19 03:48 Chloride 96.5 mmol/L (98-107) L 02/21/19 03:48 Carbon Dioxide 26 mmol/L (22-30) 02/21/19 03:48 18 mmol/L 02/21/19 03:48 BUN 31 mg/dL (7-17) H 02/21/19 03:48 4.6 mg/dL (0.7-1.2) H 02/21/19 03:48 Estimated GFR 11 ml/min 02/21/19 03:48 7 % 02/21/19 03:48 Glucose 103 mg/dL (65-100) H 02/21/19 03:48 POC Glucose 102 (70-105) 02/21/19 12:34 Lactic Acid 1.80 mmol/L (0.7-2.0) 02/16/19 Unknown Calcium 7.9 mg/dL (8.4-10.2) L 02/21/19 03:48 0.40 mg/dL (0.1-1.2) 02/16/19 13:54 AST 41 units/L (5-40) H 02/16/19 13:54 ALT 25 units/L (7-56) 02/16/19 13:54 252 units/L (35-129) H 02/16/19 13:54 29.60 mg/dL (0.00-1.30) H 02/18/19 22:44 7.3 g/dL (6.3-8.2) 02/16/19 13:54 2.9 g/dL (3.9-5) L 02/16/19 13:54 0.7 % 02/16/19 13:54 Random Vancomycin 15.5 ug/mL (0-40.0) 02/19/19 04:48 Blood Type B POSITIVE 02/19/19 15:15 Antibody Screen Negative 02/19/19 15:15 Crossmatch See Detail 02/19/19 15:15 Active Medications - Current Medications Current Medications: Generic Name Dose Route Start Last Admin Trade Name Freq PRN Reason Stop Dose Admin Albuterol 2.5 mg 02/16/19 16:32 Proventil IH Q3HRT PRN Shortness Of Breath Amlodipine Besylate 5 mg 02/17/19 10:00 02/21/19 11:50 Norvasc PO 5 mg DAILY [facility] Administration Aspirin 81 mg 02/19/19 14:00 02/21/19 11:53 Halfprin Ec PO Not Given QDAY [facility] Clopidogrel Bisulfate 75 mg 02/19/19 14:00 02/21/19 11:53 Plavix PO Not Given QDAY [facility] Dextrose 50 ml 02/16/19 16:35 D50w (25gm) Syringe IV PRN PRN Hypoglycemia Diphenhydramine HCl 25 mg 02/19/19 07:52 02/20/19 04:50 Benadryl IV 25 mg Q6H PRN Administration Itching Epoetin [place] 20,000 unit 02/17/19 14:18 02/21/19 09:21 Procrit SUB-Q 20,000 unit ANNI PRN Administration hemodialysis Famotidine 10 mg 02/16/19 22:00 02/21/19 11:50 Pepcid PO 10 mg BID JUAQUIN Administration Heparin Sodium (Porcine) 5,000 unit 02/18/19 22:00 02/21/19 13:53 Heparin SUB-Q Not Given Q8HR JUAQUIN Hydromorphone HCl 0.5 mg 02/20/19 15:55 Dilaudid IM Q10M PRN Pain , Severe (7-10) Sodium Chloride 100 mls @ 999 mls/hr 02/17/19 14:18 Nacl 0.9% IV ANNI PRN Hypotension Vancomycin HCl 1 gm in 250 mls @ 167.007 mls/hr 02/19/19 20:00 02/19/19 21:00 Vancomycin/Ns 1 Gm/250 Ml IV 167.007 mls/hr TuThSa JUAQUIN Administration Sodium Chloride 500 mls @ 0 mls/hr 02/19/19 15:19 Nacl 0.9% 500 Ml IV ONCE JUAQUIN As Directed Sodium Chloride 1,000 mls @ 42 mls/hr 02/20/19 12:00 Nacl 0.9% 1000 Ml IV DIRECT JUAQUIN Insulin Glargine 10 units 02/18/19 22:00 02/20/19 22:15 Lantus SUB-Q 10 units QHS JUAQUIN Administration Insulin Human Lispro 0 unit 02/19/19 11:30 02/21/19 12:40 Humalog SUB-Q Not Given ACHS [facility] Protocol Morphine Sulfate 2 mg 02/17/19 23:37 02/21/19 05:23 Morphine IV 2 mg Q3H PRN Administration Pain, Moderate (4-6) Multivit/Ca Carb/B Cmplx/FA/Prenat 1 cap 02/17/19 10:00 02/21/19 11:50 Renal Caps PO 1 cap QDAY JUAQUIN Administration Ondansetron HCl 4 mg 02/18/19 11:34 Zofran IV Q6H PRN Nausea And Vomiting Oxycodone/Acetaminophen 1 tab 02/16/19 16:32 02/21/19 11:50 Percocet 5/325 PO 1 tab Q6H PRN Administration Pain, Moderate (4-6) Sodium Chloride 10 ml 02/16/19 22:00 02/21/19 11:53 Sodium Chloride Flush Syringe 10 Ml IV Not Given BID JUAQUIN Sodium Chloride 10 ml 02/16/19 16:32 Sodium Chloride Flush Syringe 10 Ml IV PRN PRN LINE FLUSH Nutrition/Malnutrition Assess - Dietary Evaluation Nutrition/Malnutrition Findings: Nutrition Notes Start: 02/17/19 16:06 Freq: Status: Active Protocol: Document 02/20/19 17:42 RM (Rec: 02/20/19 17:45 RM [id number]) Nutrition Notes Initial or Follow up Reassessment Current Diagnosis Sepsis,Hypertension,Heart Failure Other Pertinent Diagnosis ESRD on HD (T/R/S), GERD, Gangrene of toe of R foot Current Diet NPO after midnight Labs/Tests Reviewed Pertinent Medications Reviewed Height 5 ft 3 in Weight 64.4 kg [place] Body Weight (kg) 52.27 BMI 25.1 Subjective/Other Information NPO in place for BKA. Pt not in room at time of visit. Pt tech unsure how much pt was eating prior to NPO. Burn Absent Trauma Absent #1 Nutrition Diagnosis Inadequate oral intake Diagnosis Progress(for reassessment Continues documentation) Is patient on ventilator? No Is Patient Ambulatory and/or Out of Bed No REE-([facility]-confined to bed) 1324.368 Calculation Used for Recommendations [facility] Additional Notes Protein Needs: 77-97g (1.2-1. 5g/kg) Fluid Needs: 1 ml/kcal Nutrition Intervention Change Diet Order: Advance diet when medically able Add Supplement/Snack (indicate name/kcal Nepro 1 daily once diet /protein ) advanced Provides kCal: 425 Provides Protein (gm) 19 Goal #1 Diet advancement Anticipated Discharge Needs: Renal diet Follow-Up By: 02/23/19 Additional Comments Follow for diet advancement, PO and ONS intakes
[2019-02-22] MEDS: HumaLOG SUB-Q SCH ×5 (08:15→22:56)
[2019-02-22] MEDS: HALFPRIN EC PO SCH (09:11)
[2019-02-22] MEDS: Renal Caps PO SCH (09:11)
[2019-02-22] MEDS: PEPCID PO SCH ×3 (09:11→22:55)
[2019-02-22] MEDS: NORVASC PO SCH (09:12)
[2019-02-22] MEDS: PLAVIX PO SCH (09:12)
--- NOTE | 2019-02-22 09:12 | Progress Note ---
Assessment and Plan Cultures: Blood cultures 02/16/2019 grew MRSA 3 of 4 bottles. Blood cultures 02/18/2019 no growth Assessment: 78 y/o female with history of ESRD on HD, GERD, HTN, Hypothyroidism, CHF, right leg gangrene with chronic wounds s/p right great toe amputation on 11/26/2018 failed HBOT, pending further amputation admitted on 02/16/2019 due to worsening right foot pain: 1) Sepsis: leukcoytosis better. Etiology likely MRSA bacteremia. 2) MRSA bacteremia: source right foot. Blood cultures 02/16/2019 grew MRSA 3 of 4 bottles. Blood cultures 02/18/2019 no growth today. 3) PVD with right critical limb ischemia: Patient underwent 02/18 right lower extremity angiography demonstrating 70% SFA stenosis in the mid to distal portion, complete occlusion of the posterior tibial artery and long segment occlusion of the anterior tibial artery with perineal runoff to the foot. Treatment of the SFA lesion with angioplasty and drug coated balloon with residual less than 10% stenosis. Treatment of the anterior tibial artery with atherectomy and angioplasty with residual attended 20% stenosis. S/P right BKA 02/20/19. TTE shows no valvular vegetation. Recommendations: - continue vancomycin with PK consult -Anticipate discharge on Vancomycin 1 gm post HD Saturday, , Saturday for 4 weeks ending 03-19-19 -Order placed with case management [facility] [employer] M: [phone] O:[phone] Subjective Date of service: 02/22/19 Principal diagnosis: peripheral vascular disease with nonhealing right foot wounds Interval history: Patient seen and examined. Awake. Alert. Daughters at bedside. responds appropriately to all verbal request. No fevers. Objective - Exam Narrative Exam: General appearance: Awake. Alert. No acute distress Eyes: anicteric sclerae, moist conjunctivae; no lid-lag; PERRLA HENT: Atraumatic; oropharynx limited Neck: Trachea midline; supple, no thyromegaly or lymphadenopathy Lungs: CTA CV: RRR no murmur Abdomen: Soft, non-tender; no masses or hepatosplenomegaly Extremities:s/p Right BKA, wrapped with JUANA. Skin: Normal temperature, turgor and texture; no rash, ulcers or subcutaneous nodules Psych: no agitated. Neuro: alert and oriented x 3. Moving all extermities left AVF - Constitutional Vitals: Vital Signs Temp Pulse Resp BP Pulse Ox 98.6 F 78 20 157/56 97 02/22/19 02:33 02/21/19 20:23 02/22/19 08:00 02/22/19 02:33 02/22/19 08:00 Temperature -Last 24 Hours Temperature 98.6 F Temperature 97.3 F Temperature 99.3 F Temperature 97.1 F - Labs CBC & Chem 7: 02/21/19 03:48 02/21/19 03:48 Labs: Abnormal lab results 02/22/19 Range/Units 08:26 POC Glucose 61 L (70-105)
[2019-02-22] MEDS: PERCOCET 5/325 PO PRN (09:13)
[2019-02-22] MEDS: SODIUM CHLORIDE FLUSH SYRINGE 10 ML IV SCH ×3 (09:14→22:56)
--- NOTE | 2019-02-22 12:05 | Progress Note ---
Assessment and Plan 1. ESRD: Continue hemodialysis three times a week, TTS schedule. 2. Sepsis: 2/2 to right LE cellulitis. 3. Anemia: S/p 2 units of PRBC on 02/19/19. Epogen with HD. 4. PAD: S/p R LE angioplasty. S/p R BKA. 5. GILBERTO: CPAP. 6. DM type 2. 7. HTN. Subjective Date of service: 02/22/19 Principal diagnosis: peripheral vascular disease with nonhealing right foot wounds Interval history: Patient was seen and examined at the bedside. No new complaint. Daughter at the bedside. Objective - Vital Signs Vital signs: Vital Signs - 12hr 02/22/19 02/22/19 02/22/19 02:33 09:12 09:13 Temperature 98.6 F Pulse Rate 78 Respiratory 20 20 Rate Blood Pressure 157/56 157/56 O2 Sat by Pulse Oximetry 02/22/19 10:00 Temperature Pulse Rate 78 Respiratory 20 Rate Blood Pressure O2 Sat by Pulse 95 Oximetry - General Appearance General appearance: well-developed, appears stated age, other (no distress) EENT: ATNC Neck: supple Respiratory: Present: Clear to Ascultation Cardiology: regular, S1S2, no murmurs Gastrointestinal: normoactive bowel sounds, no tenderness, no distended Integumentary: no rash Neurologic: no focal deficit, no asterixis, confused, disoriented Musculoskeletal: other (R BKA, L arm AVF) Psychiatric: cooperative - Lab 02/21/19 03:48 02/21/19 03:48 Most recent lab results Calcium 7.9 mg/dL (8.4-10.2) L 02/21/19 03:48 Medications & Allergies - Medications Allergies/Adverse Reactions: Allergies Iodinated Contrast- Oral and IV Dye Allergy (Verified 11/25/18 15:48) Hives, Rash Penicillins Allergy (Verified 11/25/18 15:48) Hives Home Medications: Home Medications Medication Instructions Recorded Confirmed Last Taken Type B Complex 11/Folic/C/Biot/Zinc 1 each PO DAILY 09/06/15 02/16/19 11/25/18 20:00 History [Dialyvite with Zinc Tablet] Lispro Insulin [Humalog] 7 unit SQ AC 11/25/18 02/16/19 Unknown History Pantoprazole Sodium 40 mg PO DAILY 11/25/18 02/16/19 11/26/18 05:00 History amLODIPine [Norvasc] 5 mg PO DAILY 11/25/18 02/16/19 11/28/18 History 2.5 Ranitidine HCl [Zantac] 300 mg PO BID 02/16/19 02/16/19 Unknown History Calcium Acetate 667 mg PO AC 02/18/19 02/18/19 Unknown History Levothyroxine 0.05 mg PO QDAY 02/18/19 02/18/19 Unknown History Lyrica 75 mg PO HS 02/18/19 02/18/19 Unknown History Meloxicam 7.5 mg PO QDAY 02/18/19 02/18/19 Unknown History Pravastatin 40 mg PO HS 02/18/19 02/18/19 Unknown History Zetia 10 mg PO HS 02/18/19 02/18/19 Unknown History Active Medications: Generic Name Dose Route Start Last Admin Trade Name Freq PRN Reason Stop Dose Admin Albuterol 2.5 mg 02/16/19 16:32 Proventil IH Q3HRT PRN Shortness Of Breath Amlodipine Besylate 5 mg 02/17/19 10:00 02/22/19 09:12 Norvasc PO 5 mg DAILY JUAQUIN Administration Aspirin 81 mg 02/19/19 14:00 02/22/19 09:11 Halfprin Ec PO 81 mg QDAY JUAQUIN Administration Clopidogrel Bisulfate 75 mg 02/19/19 14:00 02/22/19 09:12 Plavix PO 75 mg QDAY JUAQUIN Administration Dextrose 50 ml 02/16/19 16:35 D50w (25gm) Syringe IV PRN PRN Hypoglycemia Diphenhydramine HCl 25 mg 02/19/19 07:52 02/20/19 04:50 Benadryl IV 25 mg Q6H PRN Administration Itching Epoetin [place] 20,000 unit 02/17/19 14:18 02/21/19 09:21 Procrit SUB-Q 20,000 unit ANNI PRN Administration hemodialysis Famotidine 10 mg 02/16/19 22:00 02/22/19 09:11 Pepcid PO 10 mg BID JUAQUIN Administration Heparin Sodium (Porcine) 5,000 unit 02/18/19 22:00 02/21/19 20:57 Heparin SUB-Q 5,000 unit Q8HR JUAQUIN Administration Hydromorphone HCl 0.5 mg 02/20/19 15:55 Dilaudid IM Q10M PRN Pain , Severe (7-10) Sodium Chloride 100 mls @ 999 mls/hr 02/17/19 14:18 Nacl 0.9% IV ANNI PRN Hypotension Vancomycin HCl 1 gm in 250 mls @ 167.007 mls/hr 02/19/19 20:00 02/19/19 21:00 Vancomycin/Ns 1 Gm/250 Ml IV 167.007 mls/hr TuThSa JUAQUIN Administration Sodium Chloride 500 mls @ 0 mls/hr 02/19/19 15:19 Nacl 0.9% 500 Ml IV ONCE JUAQUIN As Directed Sodium Chloride 1,000 mls @ 42 mls/hr 02/20/19 12:00 Nacl 0.9% 1000 Ml IV DIRECT JUAQUIN Insulin Glargine 10 units 02/18/19 22:00 02/20/19 22:15 Lantus SUB-Q 10 units QHS JUAQUIN Administration Insulin Human Lispro 0 unit 02/19/19 11:30 02/22/19 08:15 [facility]alog [facility]Q [facility] Protocol Morphine Sulfate 2 mg 02/17/19 23:37 02/21/19 20:51 Morphine IV 2 mg Q3H PRN Administration Pain, Moderate (4-6) Multivit/Ca Carb/B Cmplx/FA/Prenat 1 cap 02/17/19 10:00 02/22/19 09:11 Renal Caps PO 1 cap QDAY JUAQUIN Administration Ondansetron HCl 4 mg 02/18/19 11:34 Zofran IV Q6H PRN Nausea And Vomiting Oxycodone/Acetaminophen 1 tab 02/16/19 16:32 02/22/19 09:13 Percocet 5/325 PO 1 tab Q6H PRN Administration Pain, Moderate (4-6) Sodium Chloride 10 ml 02/16/19 22:00 02/22/19 09:14 Sodium Chloride Flush Syringe 10 Ml IV 10 ml BID JUAQUIN Administration Sodium Chloride 10 ml 02/16/19 16:32 Sodium Chloride Flush Syringe 10 Ml IV PRN PRN LINE FLUSH
--- NOTE | 2019-02-22 12:31 | Progress Note ---
Assessment and Plan Assessment and plan: 78-year-old woman who presented to the hospital with right foot pain, she was already scheduled for amputation as an outpatient Right lower extremity gangrene and peripheral arterial disease -Status post right lower extremity angioplasty, status post right BKA ---angiogram -Impression: 1) Aortography and right lower extremity angiography demonstrating 70% SFA stenosis in the mid to distal portion, complete occlusion of the posterior tibial artery and long segment occlusion of the anterior tibial artery with perineal runoff to the foot. 2) Treatment of the SFA lesion with angioplasty and drug coated balloon with residual less than 10% stenosis. 3: Treatment of the anterior tibial artery with atherectomy and angioplasty with residual attended 20% stenosis severe anemia - transfused 2 units of blood and h/h is stable . Sepsis, with MRSA bacteremia -Infectious disease consult appreciated, continue antibiotics, currently on vancomycin, anticipate discharge on vancomycin 1 g post-HD 4 weeks ending 03/19/19 End-stage renal disease on hemodialysis - Continue dialysis as scheduled DVT prophylaxis; heparin was held for the procedure. Disposition; continue inpatient care History Interval history: Review of systems Constitutional: No fevers, no malaise, no joint pains CVS: No chest pain, no orthopnea, no dyspnea on exertion, no pedal edema GI: No abdominal pain, no diarrhea, no vomiting, no constipation Respiratory: no wheezing, no coughing Hospitalist Physical - Physical exam Narrative exam: Not in cardiopulmonary distress. The patient appeared well nourished and normally developed. Vital signs as documented. Head exam is unremarkable. No scleral icterus . Neck is without jugular venous distension, thyromegaly, or carotid bruits. Lungs are clear to auscultation. Cardiac exam reveals regular rate and Rhythm. Abdominal exam reveals normal bowel sounds, no masses, no organomegaly and no aortic enlargement. Extremities right BKA. WAITSTAFF: Alert and oriented 3. No focal weakness. - Constitutional Vitals: Temp Pulse Resp BP Pulse Ox 98.6 F 78 20 157/56 95 02/22/19 02:33 02/22/19 10:00 02/22/19 10:00 02/22/19 09:12 02/22/19 10:00 General appearance: Present: no acute distress Results - Labs CBC & Chem 7: 02/21/19 03:48 02/21/19 03:48 Labs: Laboratory Last Values WBC 9.6 K/mm3 (4.5-11.0) 02/21/19 03:48 RBC 3.89 M/mm3 (3.65-5.03) 02/21/19 03:48 Hgb 9.5 gm/dl (10.1-14.3) L 02/21/19 03:48 Hct 29.9 % (30.3-42.9) L 02/21/19 03:48 MCV 77 fl (79-97) L 02/21/19 03:48 MCH 24 pg (28-32) L 02/21/19 03:48 MCHC 32 % (30-34) 02/21/19 03:48 RDW 21.8 % (13.2-15.2) H 02/21/19 03:48 Plt Count 276 K/mm3 (140-440) 02/21/19 03:48 Lymph % (Auto) [employer] 02/19/19 04:48 [place] % (Auto) [employer] 02/19/19 04:48 Eos % (Auto) [employer] 02/19/19 04:48 Baso % (Auto) [employer] 02/19/19 04:48 Lymph # [employer] 02/19/19 04:48 [place] # [employer] 02/19/19 04:48 Eos # [employer] 02/19/19 04:48 Baso # [employer] 02/19/19 04:48 Add Manual Diff Complete 02/21/19 03:48 Total Counted 100 02/21/19 03:48 Seg Neutrophils % [employer] 02/18/19 05:32 Seg Neuts % (Manual) 75.0 % (40.0-70.0) H 02/21/19 03:48 1.0 % 02/21/19 03:48 16.0 % (13.4-35.0) 02/21/19 03:48 Reactive Lymphs % (Man) 0 % 02/21/19 03:48 8.0 % (0.0-7.3) H 02/21/19 03:48 0 % (0.0-4.3) 02/21/19 03:48 0 % (0.0-1.8) 02/21/19 03:48 0 % 02/21/19 03:48 0 % 02/21/19 03:48 0 % 02/21/19 03:48 0 % 02/21/19 03:48 Nucleated RBC % Not Reportable 02/21/19 03:48 Seg Neutrophils # [employer] 02/19/19 04:48 Seg Neutrophils # Man 7.2 K/mm3 (1.8-7.7) 02/21/19 03:48 Band Neutrophils # 0.1 K/mm3 02/21/19 03:48 1.5 K/mm3 (1.2-5.4) 02/21/19 03:48 Abs React Lymphs (Man) 0.0 K/mm3 02/21/19 03:48 0.8 K/mm3 (0.0-0.8) 02/21/19 03:48 0.0 K/mm3 (0.0-0.4) 02/21/19 03:48 0.0 K/mm3 (0.0-0.1) 02/21/19 03:48 0.0 K/mm3 02/21/19 03:48 0.0 K/mm3 02/21/19 03:48 0.0 K/mm3 02/21/19 03:48 Blast Cells # 0.0 K/mm3 02/21/19 03:48 WBC Morphology Not Reportable 02/21/19 03:48 Hypersegmented Neuts Not Reportable 02/21/19 03:48 Hyposegmented Neuts Not Reportable 02/21/19 03:48 Hypogranular Neuts Not Reportable 02/21/19 03:48 Not Reportable 02/21/19 03:48 Not Reportable 02/21/19 03:48 Not Reportable 02/21/19 03:48 Not Reportable 02/21/19 03:48 Not Reportable 02/21/19 03:48 Not Reportable 02/21/19 03:48 Appears normal 02/21/19 03:48 Not Reportable 02/21/19 03:48 Plt Clumps, EDTA Not Reportable 02/21/19 03:48 Not Reportable 02/21/19 03:48 Not Reportable 02/21/19 03:48 Not Reportable 02/21/19 03:48 Plt Morphology Comment Not Reportable 02/21/19 03:48 RBC Morphology Not Reportable 02/21/19 03:48 Dimorphic RBCs Not Reportable 02/21/19 03:48 Few 02/21/19 03:48 1+ 02/21/19 03:48 Not Reportable 02/21/19 03:48 1+ 02/21/19 03:48 Not Reportable 02/21/19 03:48 Not Reportable 02/21/19 03:48 Not Reportable 02/21/19 03:48 Not Reportable 02/21/19 03:48 Not Reportable 02/21/19 03:48 Not Reportable 02/21/19 03:48 Not Reportable 02/21/19 03:48 Not Reportable 02/21/19 03:48 Not Reportable 02/21/19 03:48 Not Reportable 02/21/19 03:48 Not Reportable 02/21/19 03:48 Not Reportable 02/21/19 03:48 Not Reportable 02/21/19 03:48 Not Reportable 02/21/19 03:48 Not Reportable 02/21/19 03:48 Acanthocytes (Spur) Not Reportable 02/21/19 03:48 Rouleaux Not Reportable 02/21/19 03:48 Not Reportable 02/21/19 03:48 Not Reportable 02/21/19 03:48 Not Reportable 02/21/19 03:48 Not Reportable 02/21/19 03:48 Hem Pathologist Commnt No 02/21/19 03:48 APTT 23.5 Sec. (24.2-36.6) L 02/16/19 13:54 Sodium 137 mmol/L (137-145) 02/21/19 03:48 Potassium 3.9 mmol/L (3.6-5.0) 02/21/19 03:48 Chloride 96.5 mmol/L (98-107) L 02/21/19 03:48 Carbon Dioxide 26 mmol/L (22-30) 02/21/19 03:48 18 mmol/L 02/21/19 03:48 BUN 31 mg/dL (7-17) H 02/21/19 03:48 4.6 mg/dL (0.7-1.2) H 02/21/19 03:48 Estimated GFR 11 ml/min 02/21/19 03:48 7 % 02/21/19 03:48 Glucose 103 mg/dL (65-100) H 02/21/19 03:48 POC Glucose 211 (70-105) H 02/22/19 12:04 Lactic Acid 1.80 mmol/L (0.7-2.0) 02/16/19 Unknown Calcium 7.9 mg/dL (8.4-10.2) L 02/21/19 03:48 0.40 mg/dL (0.1-1.2) 02/16/19 13:54 AST 41 units/L (5-40) H 02/16/19 13:54 ALT 25 units/L (7-56) 02/16/19 13:54 252 units/L (35-129) H 02/16/19 13:54 29.60 mg/dL (0.00-1.30) H 02/18/19 22:44 7.3 g/dL (6.3-8.2) 02/16/19 13:54 2.9 g/dL (3.9-5) L 02/16/19 13:54 0.7 % 02/16/19 13:54 Random Vancomycin 15.5 ug/mL (0-40.0) 02/19/19 04:48 Blood Type B POSITIVE 02/19/19 15:15 Antibody Screen Negative 02/19/19 15:15 Crossmatch See Detail 02/19/19 15:15 Active Medications - Current Medications Current Medications: Generic Name Dose Route Start Last Admin Trade Name Freq PRN Reason Stop Dose Admin Albuterol 2.5 mg 02/16/19 16:32 Proventil IH Q3HRT PRN Shortness Of Breath Amlodipine Besylate 5 mg 02/17/19 10:00 02/22/19 09:12 Norvasc PO 5 mg DAILY JUAQUIN Administration Aspirin 81 mg 02/19/19 14:00 02/22/19 09:11 Halfprin Ec PO 81 mg QDAY JUAQUIN Administration Clopidogrel Bisulfate 75 mg 02/19/19 14:00 02/22/19 09:12 Plavix PO 75 mg QDAY JUAQUIN Administration Dextrose 50 ml 02/16/19 16:35 D50w (25gm) Syringe IV PRN PRN Hypoglycemia Diphenhydramine HCl 25 mg 02/19/19 07:52 02/20/19 04:50 Benadryl IV 25 mg Q6H PRN Administration Itching Epoetin [place] 20,000 unit 02/17/19 14:18 02/21/19 09:21 Procrit SUB-Q 20,000 unit ANNI PRN Administration hemodialysis Famotidine 10 mg 02/16/19 22:00 02/22/19 09:11 Pepcid PO 10 mg BID JUAQUIN Administration Heparin Sodium (Porcine) 5,000 unit 02/18/19 22:00 02/21/19 20:57 Heparin SUB-Q 5,000 unit Q8HR JUAQUIN Administration Hydromorphone HCl 0.5 mg 02/20/19 15:55 Dilaudid IM Q10M PRN Pain , Severe (7-10) Sodium Chloride 100 mls @ 999 mls/hr 02/17/19 14:18 Nacl 0.9% IV ANNI PRN Hypotension Vancomycin HCl 1 gm in 250 mls @ 167.007 mls/hr 02/19/19 20:00 02/19/19 21:00 Vancomycin/Ns 1 Gm/250 Ml IV 167.007 mls/hr TuThSa JUAQUIN Administration Sodium Chloride 500 mls @ 0 mls/hr 02/19/19 15:19 Nacl 0.9% 500 Ml IV ONCE JUAQUIN As Directed Sodium Chloride 1,000 mls @ 42 mls/hr 02/20/19 12:00 Nacl 0.9% 1000 Ml IV DIRECT JUAQUIN Insulin Glargine 10 units 02/18/19 22:00 02/20/19 22:15 Lantus SUB-Q 10 units QHS JUAQUIN Administration Insulin Human Lispro 0 unit 02/19/19 11:30 02/22/19 12:26 Humalog SUB-Q 3 unit ACHS JUAQUIN Administration Protocol Morphine Sulfate 2 mg 02/17/19 23:37 02/21/19 20:51 Morphine IV 2 mg Q3H PRN Administration Pain, Moderate (4-6) Multivit/Ca Carb/B Cmplx/FA/Prenat 1 cap 02/17/19 10:00 02/22/19 09:11 Renal Caps PO 1 cap QDAY JUAQUIN Administration Ondansetron HCl 4 mg 02/18/19 11:34 Zofran IV Q6H PRN Nausea And Vomiting Oxycodone/Acetaminophen 1 tab 02/16/19 16:32 02/22/19 09:13 Percocet 5/325 PO 1 tab Q6H PRN Administration Pain, Moderate (4-6) Sodium Chloride 10 ml 02/16/19 22:00 02/22/19 09:14 Sodium Chloride Flush Syringe 10 Ml IV 10 ml BID JUAQUIN Administration Sodium Chloride 10 ml 02/16/19 16:32 Sodium Chloride Flush Syringe 10 Ml IV PRN PRN LINE FLUSH Nutrition/Malnutrition Assess - Dietary Evaluation Nutrition/Malnutrition Findings: Nutrition Notes Start: 02/17/19 16:06 Freq: Status: Active Protocol: Document 02/20/19 17:42 RM (Rec: 02/20/19 17:45 RM [email or web address]) Nutrition Notes Initial or Follow up Reassessment Current Diagnosis Sepsis,Hypertension,Heart Failure Other Pertinent Diagnosis ESRD on HD (T/R/S), GERD, Gangrene of toe of R foot Current Diet NPO after midnight Labs/Tests Reviewed Pertinent Medications Reviewed Height 5 ft 3 in Weight 64.4 kg [place] Body Weight (kg) 52.27 BMI 25.1 Subjective/Other Information NPO in place for BKA. Pt not in room at time of visit. Pt tech unsure how much pt was eating prior to NPO. Burn Absent Trauma Absent #1 Nutrition Diagnosis Inadequate oral intake Diagnosis Progress(for reassessment Continues documentation) Is patient on ventilator? No Is Patient Ambulatory and/or Out of Bed No REE-([place]-[facility]. Jeor-confined to bed) 1324.368 Calculation Used for Recommendations [facility] Additional Notes Protein Needs: 77-97g (1.2-1. 5g/kg) Fluid Needs: 1 ml/kcal Nutrition Intervention Change Diet Order: Advance diet when medically able Add Supplement/Snack (indicate name/kcal [place] 1 daily once diet /protein ) advanced Provides kCal: 425 Provides Protein (gm) 19 Goal #1 Diet advancement Anticipated Discharge Needs: Renal diet Follow-Up By: 02/23/19 Additional Comments Follow for diet advancement, PO and ONS intakes
[2019-02-22] MEDS: HEPARIN SUB-Q SCH ×3 (13:21→22:56)
[2019-02-22] MEDS: MORPHINE IV PRN ×2 (13:22→20:08)
[2019-02-22] MEDS ORDERED: VANCOMYCIN/NS 1 GM/250 ML 1 GM/250 ML BAG IV ONE (16:00)
[2019-02-22] MEDS: SODIUM CHLORIDE FLUSH SYRINGE 10 ML IV PRN (16:44)
[2019-02-22] MEDS: VANCOMYCIN/NS 1 GM/250 ML 1 GM/250 ML BAG IV SCH (21:47)
[2019-02-22] MEDS: LANTUS SUB-Q SCH ×2 (21:48→22:55)
[2019-02-23] MEDS: HEPARIN SUB-Q SCH ×3 (05:57→23:06)
[2019-02-23] MEDS: MORPHINE IV PRN (06:20)
[2019-02-23] MEDS: HumaLOG SUB-Q SCH ×4 (08:40→23:06)
--- NOTE | 2019-02-23 08:56 | Progress Note ---
Assessment and Plan Cultures: Blood cultures 02/16/2019 grew MRSA 3 of 4 bottles. Blood cultures 02/18/2019 no growth Assessment: 78 y/o female with history of ESRD on HD, GERD, HTN, Hypothyroidism, CHF, right leg gangrene with chronic wounds s/p right great toe amputation on 11/26/2018 failed HBOT, pending further amputation admitted on 02/16/2019 due to worsening right foot pain: 1) Sepsis: leukcoytosis better. Etiology likely MRSA bacteremia. 2) MRSA bacteremia: source right foot. Blood cultures 02/16/2019 grew MRSA 3 of 4 bottles. Blood cultures 02/18/2019 no growth today. 3) PVD with right critical limb ischemia: Patient underwent 02/18 right lower extremity angiography demonstrating 70% SFA stenosis in the mid to distal portion, complete occlusion of the posterior tibial artery and long segment occlusion of the anterior tibial artery with perineal runoff to the foot. Treatment of the SFA lesion with angioplasty and drug coated balloon with residual less than 10% stenosis. Treatment of the anterior tibial artery with atherectomy and angioplasty with residual attended 20% stenosis. S/P right BKA 02/20/19. TTE shows no valvular vegetation. Recommendations: - continue vancomycin with PK consult -Anticipate discharge on Vancomycin 1 gm post HD Saturday, , Saturday for 4 weeks ending 03-19-19 -Order placed with case management [facility] M: [phone] O:[phone] Subjective Date of service: 02/23/19 Principal diagnosis: peripheral vascular disease with nonhealing right foot wounds Interval history: Patient seen and examined. Sitting up in bed, awake. alert. No acute distress reported. no fevers. Objective - Exam Narrative Exam: General appearance: Awake. Alert. No acute distress Eyes: anicteric sclerae, moist conjunctivae; no lid-lag; PERRLA HENT: Atraumatic; oropharynx limited Neck: Trachea midline; supple, no thyromegaly or lymphadenopathy Lungs: CTA CV: RRR no murmur Abdomen: Soft, non-tender; no masses or hepatosplenomegaly Extremities:s/p Right BKA, wrapped with JUANA. Skin: Normal temperature, turgor and texture; no rash, ulcers or subcutaneous nodules Psych: no agitated. Neuro: alert and oriented x 3. Moving all extremities left AVF - Constitutional Vitals: Vital Signs Temp Pulse Resp BP Pulse Ox 98.6 F 73 19 122/39 98 02/23/19 07:47 02/23/19 07:47 02/23/19 07:47 02/23/19 07:47 02/23/19 07:47 Temperature -Last 24 Hours Temperature 98.6 F Temperature 98.9 F Temperature 98.0 F Temperature 98.1 F - Labs CBC & Chem 7: 02/23/19 09:14 02/23/19 09:14 Labs: Abnormal lab results 02/22/19 02/22/19 02/22/19 Range/Units 10:01 12:04 16:42 POC Glucose 135 H 211 H 169 H (70-105) 02/22/19 02/23/19 Range/Units 21:53 08:33 POC Glucose 195 H < 40 L (70-105)
--- NOTE | 2019-02-23 09:57 | Progress Note ---
Assessment and Plan 1. ESRD: Continue hemodialysis three times a week, TTS schedule. 2. Sepsis: 2/2 to right LE cellulitis. 3. Anemia: S/p 2 units of PRBC on 02/19/19. Epogen with HD. 4. PAD: S/p R LE angioplasty and R BKA. 5. GILBERTO: CPAP. 6. DM type 2. 7. HTN. Subjective Date of service: 02/23/19 Principal diagnosis: peripheral vascular disease with nonhealing right foot wounds Interval history: Patient was seen and examined at the bedside. No new complaint. Objective - Vital Signs Vital signs: Vital Signs - 12hr 02/22/19 02/23/19 02/23/19 22:00 02:07 03:12 Temperature 98.9 F Pulse Rate 71 67 Respiratory 20 14 Rate Blood Pressure 140/60 O2 Sat by Pulse 97 Oximetry 02/23/19 02/23/19 02/23/19 06:20 06:50 07:47 Temperature 98.6 F Pulse Rate 73 Respiratory 20 20 19 Rate Blood Pressure 122/39 O2 Sat by Pulse 98 Oximetry - General Appearance General appearance: well-developed, appears stated age, other (no distress) EENT: ATNC, PERRL Neck: supple Respiratory: Present: Clear to Ascultation Cardiology: regular, S1S2, no murmurs Gastrointestinal: normoactive bowel sounds, no tenderness, no distended Integumentary: no rash, warm and dry Neurologic: no focal deficit, no asterixis, disoriented Musculoskeletal: other (R BKA, no edema, L arm AVF) Psychiatric: cooperative - Lab 02/23/19 09:14 02/23/19 09:14 Most recent lab results Calcium 7.9 mg/dL (8.4-10.2) L 02/21/19 03:48 Medications & Allergies - Medications Allergies/Adverse Reactions: Allergies Iodinated Contrast- Oral and IV Dye Allergy (Verified 11/25/18 15:48) Hives, Rash Penicillins Allergy (Verified 11/25/18 15:48) Hives Home Medications: Home Medications Medication Instructions Recorded Confirmed Last Taken Type B Complex 11/Folic/C/Biot/Zinc 1 each PO DAILY 09/06/15 02/16/19 11/25/18 20:00 History [Dialyvite with Zinc Tablet] Lispro Insulin [Humalog] 7 unit SQ AC 11/25/18 02/16/19 Unknown History Pantoprazole Sodium 40 mg PO DAILY 11/25/18 02/16/19 11/26/18 05:00 History amLODIPine [Norvasc] 5 mg PO DAILY 11/25/18 02/16/19 11/28/18 History 2.5 Ranitidine HCl [Zantac] 300 mg PO BID 02/16/19 02/16/19 Unknown History Calcium Acetate 667 mg PO AC 02/18/19 02/18/19 Unknown History Levothyroxine 0.05 mg PO QDAY 02/18/19 02/18/19 Unknown History Lyrica 75 mg PO HS 02/18/19 02/18/19 Unknown History Meloxicam 7.5 mg PO QDAY 02/18/19 02/18/19 Unknown History Pravastatin 40 mg PO HS 02/18/19 02/18/19 Unknown History Zetia 10 mg PO HS 02/18/19 02/18/19 Unknown History Active Medications: Generic Name Dose Route Start Last Admin Trade Name Freq PRN Reason Stop Dose Admin Albuterol 2.5 mg 02/16/19 16:32 Proventil IH Q3HRT PRN Shortness Of Breath Amlodipine Besylate 5 mg 02/17/19 10:00 02/22/19 09:12 Norvasc PO 5 mg DAILY JUAQUIN Administration Aspirin 81 mg 02/19/19 14:00 02/22/19 09:11 Halfprin Ec PO 81 mg QDAY JUAQUIN Administration Clopidogrel Bisulfate 75 mg 02/19/19 14:00 02/22/19 09:12 Plavix PO 75 mg QDAY JUAQUIN Administration Dextrose 50 ml 02/16/19 16:35 02/23/19 08:34 D50w (25gm) Syringe IV 50 ml PRN PRN Administration Hypoglycemia Diphenhydramine HCl 25 mg 02/19/19 07:52 02/20/19 04:50 Benadryl IV 25 mg Q6H PRN Administration Itching Epoetin [place] 20,000 unit 02/17/19 14:18 02/21/19 09:21 Procrit SUB-Q 20,000 unit ANNI PRN Administration hemodialysis Famotidine 10 mg 02/16/19 22:00 02/22/19 22:55 Pepcid PO 10 mg BID JUAQUIN Administration Heparin Sodium (Porcine) 5,000 unit 02/18/19 22:00 02/23/19 05:57 Heparin SUB-Q 5,000 unit Q8HR JUAQUIN Administration Hydromorphone HCl 0.5 mg 02/20/19 15:55 Dilaudid IM Q10M PRN Pain , Severe (7-10) Sodium Chloride 100 mls @ 999 mls/hr 02/17/19 14:18 Nacl 0.9% IV ANNI PRN Hypotension Vancomycin HCl 1 gm in 250 mls @ 167.007 mls/hr 02/19/19 20:00 02/22/19 21:47 Vancomycin/Ns 1 Gm/250 Ml IV Not Given TuThSa JUAQUIN Sodium Chloride 500 mls @ 0 mls/hr 02/19/19 15:19 Nacl 0.9% 500 Ml IV ONCE JUAQUIN As Directed Sodium Chloride 1,000 mls @ 42 mls/hr 02/20/19 12:00 Nacl 0.9% 1000 Ml IV DIRECT JUAQUIN Insulin Glargine 10 units 02/18/19 22:00 02/22/19 22:55 Lantus SUB-Q 10 units QHS JUAQUIN Administration Insulin Human Lispro 0 unit 02/19/19 11:30 02/23/19 08:40 Humalog SUB-Q Not Given ACHS [facility] Protocol Morphine Sulfate 2 mg 02/17/19 23:37 02/23/19 06:20 Morphine IV 2 mg Q3H PRN Administration Pain, Moderate (4-6) Multivit/Ca Carb/B Cmplx/FA/Prenat 1 cap 02/17/19 10:00 02/22/19 09:11 Renal Caps PO 1 cap QDAY JUAQUIN Administration Ondansetron HCl 4 mg 02/18/19 11:34 Zofran IV Q6H PRN Nausea And Vomiting Oxycodone/Acetaminophen 1 tab 02/16/19 16:32 02/22/19 09:13 Percocet 5/325 PO 1 tab Q6H PRN Administration Pain, Moderate (4-6) Sodium Chloride 10 ml 02/16/19 22:00 02/22/19 22:56 Sodium Chloride Flush Syringe 10 Ml IV 10 ml BID JUAQUIN Administration Sodium Chloride 10 ml 02/16/19 16:32 02/22/19 16:44 Sodium Chloride Flush Syringe 10 Ml IV 10 ml PRN PRN Administration LINE FLUSH
[2019-02-23 10:24] LABS: Hematocrit 32.6 % (30.3-42.9); Hemoglobin 10.2 gm/dl (10.1-14.3); Mean Corpuscular HGB Conc 31 % (30-34); Mean Corpuscular Volume 78 fl (79-97); Platelet Count 291 K/mm3 (140-440); Red Blood Count 4.17 M/mm3 (3.65-5.03)
[2019-02-23 10:25] LABS: Red Cell Distribution Width 22.9 % (13.2-15.2)
[2019-02-23] MEDS: NORVASC PO SCH (10:47)
[2019-02-23] MEDS: Renal Caps PO SCH (10:48)
[2019-02-23] MEDS: PLAVIX PO SCH (10:48)
[2019-02-23] MEDS: PEPCID PO SCH ×2 (10:48→23:05)
[2019-02-23] MEDS: HALFPRIN EC PO SCH (10:49)
[2019-02-23 11:18] LABS: Anisocytosis 1+; Basophils % (Manual) 0 % (0.0-1.8); Hypochromasia 1+; Poikilocytosis Few; Target Cells Few; Total Cells Counted 100
[2019-02-23 11:19] LABS: Platelet Estimate Consistent w Auto
[2019-02-23] MEDS ORDERED: LANTUS SUB-Q SCH (12:35)
--- NOTE | 2019-02-23 12:37 | Progress Note ---
Assessment and Plan Assessment and plan: 78-year-old woman who presented to the hospital with right foot pain, she was already scheduled for amputation as an outpatient Right lower extremity gangrene and peripheral arterial disease -Status post right lower extremity angioplasty, status post right BKA ---angiogram -Impression: 1) Aortography and right lower extremity angiography demonstrating 70% SFA stenosis in the mid to distal portion, complete occlusion of the posterior tibial artery and long segment occlusion of the anterior tibial artery with perineal runoff to the foot. 2) Treatment of the SFA lesion with angioplasty and drug coated balloon with residual less than 10% stenosis. 3: Treatment of the anterior tibial artery with atherectomy and angioplasty with residual attended 20% stenosis severe anemia - transfused 2 units of blood and h/h is stable . Sepsis, with MRSA bacteremia -Infectious disease consult appreciated, continue antibiotics, currently on vancomycin, anticipate discharge on vancomycin 1 g post-HD 4 weeks ending 03/19/19 End-stage renal disease on hemodialysis - Continue dialysis as scheduled DVT prophylaxis; heparin sq Disposition; continue inpatient care, pending PT eval History Interval history: Review of systems Constitutional: No fevers, no malaise, no joint pains CVS: No chest pain, no orthopnea, no dyspnea on exertion, no pedal edema GI: No abdominal pain, no diarrhea, no vomiting, no constipation Respiratory: no wheezing, no coughing Hospitalist Physical - Physical exam Narrative exam: Not in cardiopulmonary distress. The patient appeared well nourished and normally developed. Vital signs as documented. Head exam is unremarkable. No scleral icterus . Neck is without jugular venous distension, thyromegaly, or carotid bruits. Lungs are clear to auscultation. Cardiac exam reveals regular rate and Rhythm. Abdominal exam reveals normal bowel sounds, no masses, no organomegaly and no aortic enlargement. Extremities right BKA. 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 No focal weakness. - Constitutional Vitals: Temp Pulse Resp BP Pulse Ox 98.6 F 73 19 122/39 98 02/23/19 07:47 02/23/19 10:47 02/23/19 07:47 02/23/19 10:47 02/23/19 10:00 General appearance: Present: no acute distress Results - Labs CBC & Chem 7: 02/23/19 09:14 02/23/19 09:14 Labs: Laboratory Last Values WBC 10.4 K/mm3 (4.5-11.0) 02/23/19 09:14 RBC 4.17 M/mm3 (3.65-5.03) 02/23/19 09:14 Hgb 10.2 gm/dl (10.1-14.3) 02/23/19 09:14 Hct 32.6 % (30.3-42.9) 02/23/19 09:14 MCV 78 fl (79-97) L 02/23/19 09:14 MCH 24 pg (28-32) L 02/23/19 09:14 MCHC 31 % (30-34) 02/23/19 09:14 RDW 22.9 % (13.2-15.2) H 02/23/19 09:14 Plt Count 291 K/mm3 (140-440) 02/23/19 09:14 Lymph % (Auto) Dock Boss 02/19/19 04:48 [place] % (Auto) Dock Boss 02/19/19 04:48 Eos % (Auto) Dock Boss 02/19/19 04:48 Baso % (Auto) Dock Boss 02/19/19 04:48 Lymph # Dock Boss 02/19/19 04:48 [place] # Dock Boss 02/19/19 04:48 Eos # Dock Boss 02/19/19 04:48 Baso # Dock Boss 02/19/19 04:48 Add Manual Diff Complete 02/23/19 09:14 Total Counted 100 02/23/19 09:14 Seg Neutrophils % Dock Boss 02/18/19 05:32 Seg Neuts % (Manual) 92.0 % (40.0-70.0) H 02/23/19 09:14 0 % 02/23/19 09:14 3.0 % (13.4-35.0) L 02/23/19 09:14 Reactive Lymphs % (Man) 0 % 02/23/19 09:14 2.0 % (0.0-7.3) 02/23/19 09:14 2.0 % (0.0-4.3) 02/23/19 09:14 0 % (0.0-1.8) 02/23/19 09:14 1.0 % 02/23/19 09:14 0 % 02/23/19 09:14 0 % 02/23/19 09:14 0 % 02/23/19 09:14 Nucleated RBC % Not Reportable 02/23/19 09:14 Seg Neutrophils # Dock Boss 02/19/19 04:48 Seg Neutrophils # Man 9.6 K/mm3 (1.8-7.7) H 02/23/19 09:14 Band Neutrophils # 0.0 K/mm3 02/23/19 09:14 0.3 K/mm3 (1.2-5.4) L 02/23/19 09:14 Abs React Lymphs (Man) 0.0 K/mm3 02/23/19 09:14 0.2 K/mm3 (0.0-0.8) 02/23/19 09:14 0.2 K/mm3 (0.0-0.4) 02/23/19 09:14 0.0 K/mm3 (0.0-0.1) 02/23/19 09:14 0.1 K/mm3 02/23/19 09:14 0.0 K/mm3 02/23/19 09:14 0.0 K/mm3 02/23/19 09:14 Blast Cells # 0.0 K/mm3 02/23/19 09:14 WBC Morphology Not Reportable 02/23/19 09:14 Hypersegmented Neuts Not Reportable 02/23/19 09:14 Hyposegmented Neuts Not Reportable 02/23/19 09:14 Hypogranular Neuts Not Reportable 02/23/19 09:14 Not Reportable 02/23/19 09:14 Not Reportable 02/23/19 09:14 Not Reportable 02/23/19 09:14 Not Reportable 02/23/19 09:14 Not Reportable 02/23/19 09:14 Not Reportable 02/23/19 09:14 Consistent w auto 02/23/19 09:14 Not Reportable 02/23/19 09:14 Plt Clumps, EDTA Not Reportable 02/23/19 09:14 Not Reportable 02/23/19 09:14 Not Reportable 02/23/19 09:14 Not Reportable 02/23/19 09:14 Plt Morphology Comment Not Reportable 02/23/19 09:14 RBC Morphology Not Reportable 02/23/19 09:14 Dimorphic RBCs Not Reportable 02/23/19 09:14 Few 02/23/19 09:14 1+ 02/23/19 09:14 Few 02/23/19 09:14 1+ 02/23/19 09:14 Not Reportable 02/23/19 09:14 Not Reportable 02/23/19 09:14 Not Reportable 02/23/19 09:14 Not Reportable 02/23/19 09:14 Not Reportable 02/23/19 09:14 Few 02/23/19 09:14 Not Reportable 02/23/19 09:14 Not Reportable 02/23/19 09:14 Not Reportable 02/23/19 09:14 Not Reportable 02/23/19 09:14 Not Reportable 02/23/19 09:14 Not Reportable 02/23/19 09:14 Not Reportable 02/23/19 09:14 Not Reportable 02/23/19 09:14 Not Reportable 02/23/19 09:14 Acanthocytes (Spur) Not Reportable 02/23/19 09:14 Rouleaux Not Reportable 02/23/19 09:14 Not Reportable 02/23/19 09:14 Not Reportable 02/23/19 09:14 Not Reportable 02/23/19 09:14 Not Reportable 02/23/19 09:14 Hem Pathologist Commnt No 02/23/19 09:14 APTT 23.5 Sec. (24.2-36.6) L 02/16/19 13:54 Sodium 137 mmol/L (137-145) 02/21/19 03:48 Potassium 3.9 mmol/L (3.6-5.0) 02/21/19 03:48 Chloride 96.5 mmol/L (98-107) L 02/21/19 03:48 Carbon Dioxide 26 mmol/L (22-30) 02/21/19 03:48 18 mmol/L 02/21/19 03:48 BUN 31 mg/dL (7-17) H 02/21/19 03:48 4.6 mg/dL (0.7-1.2) H 02/21/19 03:48 Estimated GFR 11 ml/min 02/21/19 03:48 7 % 02/21/19 03:48 Glucose 44 mg/dL (65-100) L 02/23/19 09:14 POC Glucose 114 (70-105) H 02/23/19 09:58 Lactic Acid 1.80 mmol/L (0.7-2.0) 02/16/19 Unknown Calcium 7.9 mg/dL (8.4-10.2) L 02/21/19 03:48 0.40 mg/dL (0.1-1.2) 02/16/19 13:54 AST 41 units/L (5-40) H 02/16/19 13:54 ALT 25 units/L (7-56) 02/16/19 13:54 252 units/L (35-129) H 02/16/19 13:54 29.60 mg/dL (0.00-1.30) H 02/18/19 22:44 7.3 g/dL (6.3-8.2) 02/16/19 13:54 2.9 g/dL (3.9-5) L 02/16/19 13:54 0.7 % 02/16/19 13:54 Random Vancomycin 30.1 ug/mL (0-40.0) 02/23/19 09:14 Blood Type B POSITIVE 02/19/19 15:15 Antibody Screen Negative 02/19/19 15:15 Crossmatch See Detail 02/19/19 15:15 Active Medications - Current Medications Current Medications: Generic Name Dose Route Start Last Admin Trade Name Freq PRN Reason Stop Dose Admin Albuterol 2.5 mg 02/16/19 16:32 Proventil IH Q3HRT PRN Shortness Of Breath Amlodipine Besylate 5 mg 02/17/19 10:00 02/23/19 10:47 Norvasc PO Not Given DAILY JUAQUIN Aspirin 81 mg 02/19/19 14:00 02/23/19 10:49 Halfprin Ec PO 81 mg QDAY JUAQUIN Administration Clopidogrel Bisulfate 75 mg 02/19/19 14:00 02/23/19 10:48 Plavix PO 75 mg QDAY JUAQUIN Administration Dextrose 50 ml 02/16/19 16:35 02/23/19 08:34 D50w (25gm) Syringe IV 50 ml PRN PRN Administration Hypoglycemia Diphenhydramine HCl 25 mg 02/19/19 07:52 02/20/19 04:50 Benadryl IV 25 mg Q6H PRN Administration Itching Epoetin [place] 20,000 unit 02/17/19 14:18 02/21/19 09:21 Procrit SUB-Q 20,000 unit ANNI PRN Administration hemodialysis Famotidine 10 mg 02/16/19 22:00 02/23/19 10:48 Pepcid PO 10 mg BID JUAQUIN Administration Heparin Sodium (Porcine) 5,000 unit 02/18/19 22:00 02/23/19 05:57 Heparin SUB-Q 5,000 unit Q8HR JUAQUIN Administration Hydromorphone HCl 0.5 mg 02/20/19 15:55 Dilaudid IM Q10M PRN Pain , Severe (7-10) Sodium Chloride 100 mls @ 999 mls/hr 02/17/19 14:18 Nacl 0.9% IV ANNI PRN Hypotension Vancomycin HCl 1 gm in 250 mls @ 167.007 mls/hr 02/19/19 20:00 02/22/19 21:47 Vancomycin/Ns 1 Gm/250 Ml IV Not Given TuThSa JUAQUIN Sodium Chloride 500 mls @ 0 mls/hr 02/19/19 15:19 Nacl 0.9% 500 Ml IV ONCE JUAQUIN As Directed Sodium Chloride 1,000 mls @ 42 mls/hr 02/20/19 12:00 Nacl 0.9% 1000 Ml IV DIRECT JUAQUIN Insulin Human Lispro 0 unit 02/19/19 11:30 02/23/19 08:40 Humalog SUB-Q Not Given ACHS [facility] Protocol Morphine Sulfate 2 mg 02/17/19 23:37 02/23/19 06:20 Morphine IV 2 mg Q3H PRN Administration Pain, Moderate (4-6) Multivit/Ca Carb/B Cmplx/FA/Prenat 1 cap 02/17/19 10:00 02/23/19 10:48 Renal Caps PO 1 cap QDAY JUAQUIN Administration Ondansetron HCl 4 mg 02/18/19 11:34 Zofran IV Q6H PRN Nausea And Vomiting Oxycodone/Acetaminophen 1 tab 02/16/19 16:32 02/22/19 09:13 Percocet 5/325 PO 1 tab Q6H PRN Administration Pain, Moderate (4-6) Sodium Chloride 10 ml 02/16/19 22:00 02/22/19 22:56 Sodium Chloride Flush Syringe 10 Ml IV 10 ml BID JUAQUIN Administration Sodium Chloride 10 ml 02/16/19 16:32 02/22/19 16:44 Sodium Chloride Flush Syringe 10 Ml IV 10 ml PRN PRN Administration LINE FLUSH Nutrition/Malnutrition Assess - Dietary Evaluation Nutrition/Malnutrition Findings: Nutrition Notes Start: 02/17/19 16:06 Freq: Status: Active Protocol: Document 02/20/19 17:42 RM (Rec: 02/20/19 17:45 RM [id number]) Nutrition Notes Initial or Follow up Reassessment Current Diagnosis Sepsis,Hypertension,Heart Failure Other Pertinent Diagnosis ESRD on HD (T/R/S), GERD, Gangrene of toe of R foot Current Diet NPO after midnight Labs/Tests Reviewed Pertinent Medications Reviewed Height 5 ft 3 in Weight 64.4 kg Flat Top Body Weight (kg) 52.27 BMI 25.1 Subjective/Other Information NPO in place for BKA. Pt not in room at time of visit. Pt tech unsure how much pt was eating prior to NPO. Burn Absent Trauma Absent #1 Nutrition Diagnosis Inadequate oral intake Diagnosis Progress(for reassessment Continues documentation) Is patient on ventilator? No Is Patient Ambulatory and/or Out of Bed No [facility] 1324.368 Calculation Used for Recommendations [facility] Additional Notes Protein Needs: 77-97g (1.2-1. 5g/kg) Fluid Needs: 1 ml/kcal Nutrition Intervention Change Diet Order: Advance diet when medically able Add Supplement/Snack (indicate name/kcal Nepro 1 daily once diet /protein ) advanced Provides kCal: 425 Provides Protein (gm) 19 Goal #1 Diet advancement Anticipated Discharge Needs: Renal diet Follow-Up By: 02/23/19 Additional Comments Follow for diet advancement, PO and ONS intakes
[2019-02-23] MEDS: PERCOCET 5/325 PO PRN ×2 (14:03→23:05)
[2019-02-23] MEDS: SODIUM CHLORIDE FLUSH SYRINGE 10 ML IV PRN (14:04)
[2019-02-23] MEDS: SODIUM CHLORIDE FLUSH SYRINGE 10 ML IV SCH ×2 (14:06→23:07)
[2019-02-24] MEDS: PERCOCET 5/325 PO PRN ×3 (06:13→23:04)
[2019-02-24] MEDS: HEPARIN SUB-Q SCH ×3 (06:13→23:05)
[2019-02-24] MEDS: HumaLOG SUB-Q SCH ×4 (08:10→23:21)
--- NOTE | 2019-02-24 09:17 | Progress Note ---
Assessment and Plan Cultures: Blood cultures 02/16/2019 grew MRSA 3 of 4 bottles. Blood cultures 02/18/2019 no growth Assessment: 78 y/o female with history of ESRD on HD, GERD, HTN, Hypothyroidism, CHF, right leg gangrene with chronic wounds s/p right great toe amputation on 11/26/2018 failed HBOT, pending further amputation admitted on 02/16/2019 due to worsening right foot pain: 1) Sepsis: Resolved. Etiology likely MRSA bacteremia. 2) MRSA bacteremia: source right foot. Blood cultures 02/16/2019 grew MRSA 3 of 4 bottles. Blood cultures 02/18/2019 no growth. 3) PVD with right critical limb ischemia: Patient underwent 02/18 right lower extremity angiography demonstrating 70% SFA stenosis in the mid to distal portion, complete occlusion of the posterior tibial artery and long segment occlusion of the anterior tibial artery with perineal runoff to the foot. Treatment of the SFA lesion with angioplasty and drug coated balloon with residual less than 10% stenosis. Treatment of the anterior tibial artery with atherectomy and angioplasty with residual attended 20% stenosis. S/P right BKA 02/20/19. TTE shows no valvular vegetation. Recommendations: - continue vancomycin with PK consult -Anticipate discharge on Vancomycin 1 gm post HD Saturday, , Saturday for 4 weeks ending 03-19-19 -Order placed with case management -ID f/u in 3 weeks (sent to safety attendant) [facility] M: [id number] O:[phone] Subjective Date of service: 02/24/19 Principal diagnosis: peripheral vascular disease with nonhealing right foot wounds Interval history: Patient seen and examined. Sitting up in bed, awake. alert. Complains of right leg discomfort. No fevers. Objective - Exam Narrative Exam: General appearance: Awake. Alert. Right leg discomfort. Eyes: anicteric sclerae, moist conjunctivae; no lid-lag; PERRLA HENT: Atraumatic; oropharynx limited Neck: Trachea midline; supple, no thyromegaly or lymphadenopathy Lungs: CTA CV: RRR no murmur Abdomen: Soft, non-tender; no masses or hepatosplenomegaly Extremities:s/p Right BKA, wrapped with JUANA. Skin: Normal temperature, turgor and texture; no rash, ulcers or subcutaneous nodules Psych: no agitated. Neuro: alert and oriented x 3. Moving all extremities left AVF - Constitutional Vitals: Vital Signs Temp Pulse Resp BP Pulse Ox 99.2 F 73 18 127/52 94 02/24/19 07:39 02/24/19 07:39 02/24/19 07:39 02/24/19 07:39 02/24/19 07:39 Temperature -Last 24 Hours Temperature 99.2 F Temperature 97.3 F Temperature 98.5 F - Labs CBC & Chem 7: 02/23/19 09:14 02/24/19 12:05 Labs: Abnormal lab results 02/23/19 02/23/19 02/23/19 Range/Units 09:14 09:14 09:58 MCV 78 L (79-97) fl MCH 24 L (28-32) pg RDW 22.9 H (13.2-15.2) % Seg Neuts % (Manual) 92.0 H (40.0-70.0) % Lymphocytes % (Manual) 3.0 L (13.4-35.0) % Seg Neutrophils # Man 9.6 H (1.8-7.7) K/mm3 Lymphocytes # (Manual) 0.3 L (1.2-5.4) K/mm3 Glucose 44 L (65-100) mg/dL POC Glucose 114 H (70-105) 02/23/19 02/23/19 02/23/19 Range/Units 12:13 16:56 21:45 MCV (79-97) fl MCH (28-32) pg RDW (13.2-15.2) % Seg Neuts % (Manual) (40.0-70.0) % Lymphocytes % (Manual) (13.4-35.0) % Seg Neutrophils # Man (1.8-7.7) K/mm3 Lymphocytes # (Manual) (1.2-5.4) K/mm3 Glucose (65-100) mg/dL POC Glucose 193 H 254 H 143 H (70-105) 02/24/19 Range/Units 07:44 MCV (79-97) fl MCH (28-32) pg RDW (13.2-15.2) % Seg Neuts % (Manual) (40.0-70.0) % Lymphocytes % (Manual) (13.4-35.0) % Seg Neutrophils # Man (1.8-7.7) K/mm3 Lymphocytes # (Manual) (1.2-5.4) K/mm3 Glucose (65-100) mg/dL POC Glucose 117 H (70-105)
--- NOTE | 2019-02-24 10:05 | Progress Note ---
Assessment and Plan - Patient Problems (1) Diabetic infection of right foot Current Visit: No Status: Acute Plan to address problem: 1) Pt can be discharged from my perspective. 2) F/u in [facility] in 2 weeks 3) Discharge home with narcotic of choice. 4) Encourage pt to extend right knee joint often so she can be a candidate for a prosthesis. Subjective Date of service: 02/24/19 Patient Reports: Positive: no new complaints Objective Vital Signs - 12hr 02/23/19 02/24/19 02/24/19 23:05 00:05 02:00 Temperature Pulse Rate 78 Respiratory 20 20 20 Rate Respiratory Rate [right stump] Blood Pressure Blood Pressure 143/60 [Right] O2 Sat by Pulse 100 Oximetry 02/24/19 02/24/19 02/24/19 04:00 06:10 06:13 Temperature Pulse Rate 70 Respiratory 20 Rate Respiratory 20 Rate [right stump] Blood Pressure Blood Pressure [Right] O2 Sat by Pulse Oximetry 02/24/19 02/24/19 07:13 07:39 Temperature 99.2 F Pulse Rate 73 Respiratory 20 18 Rate Respiratory Rate [right stump] Blood Pressure 127/52 Blood Pressure [Right] O2 Sat by Pulse 94 Oximetry - Musculoskeletal other (Right BKA stump is clean.) - Labs 02/23/19 09:14 02/23/19 09:14 Diabetes panel 02/23/19 Range/Units 09:14 Glucose 44 L (65-100) mg/dL Pituitary panel 02/23/19 Range/Units 09:14 Glucose 44 L (65-100) mg/dL Adrenal panel 02/23/19 Range/Units 09:14 Glucose 44 L (65-100) mg/dL
[2019-02-24] MEDS: PLAVIX PO SCH (10:43)
[2019-02-24] MEDS: Renal Caps PO SCH (10:43)
[2019-02-24] MEDS: PEPCID PO SCH ×2 (10:43→23:04)
[2019-02-24] MEDS: SODIUM CHLORIDE FLUSH SYRINGE 10 ML IV SCH ×2 (10:44→23:05)
[2019-02-24] MEDS: HALFPRIN EC PO SCH (10:46)
[2019-02-24 12:36] LABS: Calcium 8.3 mg/dL (8.4-10.2)
[2019-02-24] MEDS: NORVASC PO SCH (13:26)
[2019-02-24] MEDS ORDERED: KIONEX PO PRN (13:56)
--- NOTE | 2019-02-24 14:01 | Progress Note ---
Assessment and Plan /Right lower extremity gangrene due to severe peripheral arterial disease -Status post right lower extremity angioplasty and status post right BKA - follow wound care recommendation /PVD -s/p Angiogram showed following 1) Aortography and right lower extremity angiography demonstrating 70% SFA stenosis in the mid to distal portion, complete occlusion of the posterior tibial artery and long segment occlusion of the anterior tibial artery with perineal runoff to the foot. 2) Treatment of the SFA lesion with angioplasty and drug coated balloon with residual less than 10% stenosis. 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 Pt seen and evaluated in ED and found to have Sepsis secondary to RLE Gangrene, ESRD, and Acidosis. Surgery consulted in ED, Nephrology consulted in ED. Pt admitted to [facility]. Radiological data: Foot x-ray, chest x-ray Hospitalist Physical exam: GENERAL: well-developed elderly -Stateless female lying on bed appeared to be in no discomfort. HEENT: Normocephalic. Atraumatic. No conjunctival congestion or icterus. Pa tient has moist mucous membranes. NECK: Supple. Trachea midline. CHEST/LUNGS: Clear to auscultated bilaterally, breathing nonlabored. No wheezes crackles or rhonchi. HEART/CARDIOVASCULAR: Regular in rate and rhythm. S1 and S2 positive. ABDOMEN: Abdomen is soft, nontender. Patient has normal bowel sounds. SKIN: There is no rash. Warm and dry. NEURO: No focal motor deficit. Follows command. MUSCULOSKELETAL: No joint effusion EXTRIMITY: No edema, no cyanosis or clubbing. Right BKA PSYCH: Cooperative. Subjective Date of service: 02/24/19 Principal diagnosis: peripheral vascular disease with nonhealing right foot wounds Interval history: Patient seen and examined. Medical records and medication list reviewed. No acute event overnight noted by the RN. Patient denies any chest pain or difficulty breathing. Patient is tolerating diet. Discussed plan of care at bedside with patient, she is wondering when she can go home. Objective - Constitutional Vitals: Vital Signs - 12hr 02/24/19 02/24/19 02/24/19 04:00 06:10 06:13 Temperature Pulse Rate 70 Respiratory 20 Rate Respiratory 20 Rate [right stump] Blood Pressure O2 Sat by Pulse Oximetry 02/24/19 02/24/19 07:13 07:39 Temperature 99.2 F Pulse Rate 73 Respiratory 20 18 Rate Respiratory Rate [right stump] Blood Pressure 127/52 O2 Sat by Pulse 94 Oximetry - Labs CBC & Chem 7: 02/23/19 09:14 02/25/19 05:50 Labs: Abnormal lab results 02/23/19 02/23/19 02/24/19 Range/Units 16:56 21:45 07:44 Sodium (137-145) mmol/L Potassium (3.6-5.0) mmol/L Chloride (98-107) mmol/L BUN (7-17) mg/dL Creatinine (0.7-1.2) mg/dL Glucose (65-100) mg/dL POC Glucose 254 H 143 H 117 H (70-105) Calcium (8.4-10.2) mg/dL 02/24/19 02/24/19 Range/Units 11:47 12:05 Sodium 135 L (137-145) mmol/L Potassium 5.4 H D (3.6-5.0) mmol/L Chloride 92.3 L (98-107) mmol/L BUN 44 H (7-17) mg/dL Creatinine 6.1 H (0.7-1.2) mg/dL Glucose 154 H (65-100) mg/dL POC Glucose 201 H (70-105) Calcium 8.3 L (8.4-10.2) mg/dL
--- NOTE | 2019-02-24 18:36 | Progress Note ---
Assessment and Plan 1. ESRD: Continue hemodialysis three times a week, TTS schedule. Mild hyperkalemia, HD today. 2. Sepsis: 2/2 to right LE cellulitis. 3. Anemia: S/p 2 units of PRBC on 02/19/19. Epogen with HD. 4. PAD: S/p R LE angioplasty and R BKA. 5. GILBERTO: CPAP. 6. DM type 2. 7. HTN. Subjective Date of service: 02/24/19 Principal diagnosis: peripheral vascular disease with nonhealing right foot wounds Interval history: Patient was seen and examined at the bedside. No new complaint. Objective - Vital Signs Vital signs: Vital Signs - 12hr 02/24/19 02/24/19 02/24/19 07:13 07:39 10:00 Temperature 99.2 F Pulse Rate 73 82 Respiratory 20 18 Rate Blood Pressure 127/52 Blood Pressure [Right] O2 Sat by Pulse 94 94 Oximetry 02/24/19 02/24/19 02/24/19 13:53 13:55 17:30 Temperature 98.9 F 97.6 F Pulse Rate 83 72 Respiratory 18 16 Rate Blood Pressure 134/49 Blood Pressure 130/56 [Right] O2 Sat by Pulse Oximetry - General Appearance General appearance: well-developed, appears stated age, other (no distress) EENT: ATNC, hearing diminished Neck: supple Respiratory: Present: Clear to Ascultation Cardiology: regular, S1S2, no murmurs Gastrointestinal: normoactive bowel sounds, no tenderness, no distended Integumentary: no rash Neurologic: no asterixis, disoriented, other (impaired vision) Musculoskeletal: other (no edema, L arm AVF, R BKA) Psychiatric: cooperative - Lab 02/23/19 09:14 02/24/19 12:05 Most recent lab results Calcium 8.3 mg/dL (8.4-10.2) L 02/24/19 12:05 Medications & Allergies - Medications Allergies/Adverse Reactions: Allergies Iodinated Contrast- Oral and IV Dye Allergy (Verified 11/25/18 15:48) Hives, Rash Penicillins Allergy (Verified 11/25/18 15:48) Hives Home Medications: Home Medications Medication Instructions Recorded Confirmed Last Taken Type B Complex 11/Folic/C/Biot/Zinc 1 each PO DAILY 09/06/15 02/16/19 11/25/18 20:00 History [Dialyvite with Zinc Tablet] Lispro Insulin [Humalog] 7 unit SQ AC 11/25/18 02/16/19 Unknown History Pantoprazole Sodium 40 mg PO DAILY 11/25/18 02/16/19 11/26/18 05:00 History amLODIPine [Norvasc] 5 mg PO DAILY 11/25/18 02/16/19 11/28/18 History 2.5 Ranitidine HCl [Zantac] 300 mg PO BID 02/16/19 02/16/19 Unknown History Calcium Acetate 667 mg PO AC 02/18/19 02/18/19 Unknown History Levothyroxine 0.05 mg PO QDAY 02/18/19 02/18/19 Unknown History Lyrica 75 mg PO HS 02/18/19 02/18/19 Unknown History Meloxicam 7.5 mg PO QDAY 02/18/19 02/18/19 Unknown History Pravastatin 40 mg PO HS 02/18/19 02/18/19 Unknown History Zetia 10 mg PO HS 02/18/19 02/18/19 Unknown History Active Medications: Generic Name Dose Route Start Last Admin Trade Name Freq PRN Reason Stop Dose Admin Albuterol 2.5 mg 02/16/19 16:32 Proventil IH Q3HRT PRN Shortness Of Breath Amlodipine Besylate 5 mg 02/17/19 10:00 02/24/19 13:26 Norvasc PO Not Given DAILY JUAQUIN Aspirin 81 mg 02/19/19 14:00 02/24/19 10:46 Halfprin Ec PO 81 mg QDAY JUAQUIN Administration Clopidogrel Bisulfate 75 mg 02/19/19 14:00 02/24/19 10:43 Plavix PO 75 mg QDAY JUAQUIN Administration Dextrose 50 ml 02/16/19 16:35 02/23/19 08:34 D50w (25gm) Syringe IV 50 ml PRN PRN Administration Hypoglycemia Diphenhydramine HCl 25 mg 02/19/19 07:52 02/20/19 04:50 Benadryl IV 25 mg Q6H PRN Administration Itching Epoetin [place] 20,000 unit 02/17/19 14:18 02/21/19 09:21 Procrit SUB-Q 20,000 unit ANNI PRN Administration hemodialysis Famotidine 10 mg 02/16/19 22:00 02/24/19 10:43 Pepcid PO 10 mg BID JUAQUIN Administration Heparin Sodium (Porcine) 5,000 unit 02/18/19 22:00 02/24/19 13:19 Heparin SUB-Q 5,000 unit Q8HR JUAQUIN Administration Hydromorphone HCl 0.5 mg 02/20/19 15:55 Dilaudid IM Q10M PRN Pain , Severe (7-10) Sodium Chloride 100 mls @ 999 mls/hr 02/17/19 14:18 Nacl 0.9% IV ANNI PRN Hypotension Sodium Chloride 1,000 mls @ 42 mls/hr 02/20/19 12:00 Nacl 0.9% 1000 Ml IV DIRECT JUAQUIN Vancomycin HCl 1 gm in 250 mls @ 167.007 mls/hr 02/26/19 18:00 Vancomycin/Ns 1 Gm/250 Ml IV 03/19/19 19:30 [email or web address]@1800 [facility] Insulin Human Lispro 0 unit 02/19/19 11:30 02/24/19 16:56 Humalog SUB-Q 1 unit ACHS JUAQUIN Administration Protocol Morphine Sulfate 2 mg 02/17/19 23:37 02/23/19 06:20 Morphine IV 2 mg Q3H PRN Administration Pain, Moderate (4-6) Multivit/Ca Carb/B Cmplx/FA/Prenat 1 cap 02/17/19 10:00 02/24/19 10:43 Renal Caps PO 1 cap QDAY JUAQUIN Administration Ondansetron HCl 4 mg 02/18/19 11:34 Zofran IV Q6H PRN Nausea And Vomiting Oxycodone/Acetaminophen 1 tab 02/16/19 16:32 02/24/19 13:19 Percocet 5/325 PO 1 tab Q6H PRN Administration Pain, Moderate (4-6) Sodium Chloride 10 ml 02/16/19 22:00 02/24/19 10:44 Sodium Chloride Flush Syringe 10 Ml IV 10 ml BID JUAQUIN Administration Sodium Chloride 10 ml 02/16/19 16:32 02/23/19 14:04 Sodium Chloride Flush Syringe 10 Ml IV 10 ml PRN PRN Administration LINE FLUSH Sodium Polystyrene Sulfonate 15 gm 02/24/19 13:56 02/24/19 16:57 Kionex PO 15 gm Q6HR PRN Administration Hyperkalemia
[2019-02-24] MEDS: PROCRIT SUB-Q PRN (21:33)
[2019-02-25] MEDS: HEPARIN SUB-Q SCH ×2 (05:22→14:19)
[2019-02-25] MEDS: PERCOCET 5/325 PO PRN ×2 (05:23→12:09)
[2019-02-25 06:32] LABS: Calcium 8.4 mg/dL (8.4-10.2)
[2019-02-25] MEDS: HumaLOG SUB-Q SCH ×3 (07:36→16:25)
--- NOTE | 2019-02-25 09:26 | Progress Note ---
Assessment and Plan Cultures: Blood cultures 02/16/2019 grew MRSA 3 of 4 bottles. Blood cultures 02/18/2019 no growth Assessment: 78 y/o female with history of ESRD on HD, GERD, HTN, Hypothyroidism, CHF, right leg gangrene with chronic wounds s/p right great toe amputation on 11/26/2018 failed HBOT, pending further amputation admitted on 02/16/2019 due to worsening right foot pain: 1) Sepsis: Resolved. Etiology likely MRSA bacteremia. 2) MRSA bacteremia: source right foot. Blood cultures 02/16/2019 grew MRSA 3 of 4 bottles. Blood cultures 02/18/2019 no growth. 3) PVD with right critical limb ischemia: Patient underwent 02/18 right lower extremity angiography demonstrating 70% SFA stenosis in the mid to distal portion, complete occlusion of the posterior tibial artery and long segment occlusion of the anterior tibial artery with perineal runoff to the foot. Treatment of the SFA lesion with angioplasty and drug coated balloon with residual less than 10% stenosis. Treatment of the anterior tibial artery with atherectomy and angioplasty with residual attended 20% stenosis. S/P right BKA 02/20/19. TTE shows no valvular vegetation. Recommendations: - continue vancomycin with PK consult -Anticipate discharge on Vancomycin 1 gm post HD Saturday, , Saturday for 4 weeks ending 03-19-19 -Order placed with case management -ID f/u in 3 weeks (sent to museum service scheduler) -Clinically stable, ID is signing off please call for questions. [facility] M: [id number] O:[phone] Subjective Date of service: 02/25/19 Principal diagnosis: peripheral vascular disease with nonhealing right foot wounds Interval history: Patient seen and examined. Sitting up in bed, awake. alert. No pain or generalized weakness reported. no fevers. Objective - Exam Narrative Exam: General appearance: Awake. Alert. No acute distress Eyes: anicteric sclerae, moist conjunctivae; no lid-lag; PERRLA HENT: Atraumatic; oropharynx limited Neck: Trachea midline; supple, no thyromegaly or lymphadenopathy Lungs: CTA CV: RRR no murmur Abdomen: Soft, non-tender; no masses or hepatosplenomegaly Extremities:s/p Right BKA, wrapped with JUANA. Skin: Normal temperature, turgor and texture; no rash, ulcers or subcutaneous nodules Psych: no agitated. Neuro: alert and oriented x 3. Moving all extremities left AVF - Constitutional Vitals: Vital Signs Temp Pulse Resp BP Pulse Ox 98.5 F 76 20 146/53 99 02/25/19 07:30 02/25/19 08:21 02/25/19 08:21 02/25/19 07:30 02/25/19 08:21 Temperature -Last 24 Hours Temperature 98.5 F Temperature 98.9 F Temperature 97.8 F Temperature 97.2 F Temperature 97.6 F Temperature 98.9 F - Labs CBC & Chem 7: 02/23/19 09:14 02/25/19 05:50 Labs: Abnormal lab results 02/24/19 02/24/19 02/24/19 Range/Units 11:47 12:05 16:12 Sodium 135 L (137-145) mmol/L Potassium 5.4 H D (3.6-5.0) mmol/L Chloride 92.3 L (98-107) mmol/L BUN 44 H (7-17) mg/dL Creatinine 6.1 H (0.7-1.2) mg/dL Glucose 154 H (65-100) mg/dL POC Glucose 201 H 191 H (70-105) Calcium 8.3 L (8.4-10.2) mg/dL 02/24/19 02/25/19 Range/Units 21:14 05:50 Sodium 136 L (137-145) mmol/L Potassium (3.6-5.0) mmol/L Chloride 93.5 L (98-107) mmol/L BUN 23 H (7-17) mg/dL Creatinine 3.8 H (0.7-1.2) mg/dL Glucose (65-100) mg/dL POC Glucose 164 H (70-105) Calcium (8.4-10.2) mg/dL
[2019-02-25] MEDS: HALFPRIN EC PO SCH (09:30)
[2019-02-25] MEDS: PEPCID PO SCH (09:30)
[2019-02-25] MEDS: PLAVIX PO SCH (09:30)
[2019-02-25] MEDS: Renal Caps PO SCH (09:30)
[2019-02-25] MEDS: SODIUM CHLORIDE FLUSH SYRINGE 10 ML IV SCH (09:31)
[2019-02-25] MEDS: NORVASC PO SCH (09:31)
--- NOTE | 2019-02-25 09:31 | Progress Note ---
Assessment and Plan 1. ESRD: Continue hemodialysis three times a week, TTS schedule. 2. Sepsis: 2/2 to right LE cellulitis. 3. Anemia: S/p 2 units of PRBC on 02/19/19. Epogen with HD. 4. PAD: S/p R LE angioplasty and R BKA. 5. GILBERTO: CPAP. 6. DM type 2. 7. HTN. Subjective Date of service: 02/25/19 Principal diagnosis: peripheral vascular disease with nonhealing right foot wounds Interval history: Patient was seen and examined at the bedside. No new complaint. Objective - Vital Signs Vital signs: Vital Signs - 12hr 02/24/19 02/24/19 02/24/19 22:00 23:00 23:04 Temperature Pulse Rate Pulse Rate [ Right Radial] Respiratory 20 20 Rate Respiratory 20 Rate [right stump] Blood Pressure O2 Sat by Pulse Oximetry 02/25/19 02/25/19 02/25/19 00:04 02:37 05:23 Temperature 98.9 F Pulse Rate 77 Pulse Rate [ Right Radial] Respiratory 20 20 20 Rate Respiratory Rate [right stump] Blood Pressure 162/59 O2 Sat by Pulse 98 Oximetry 02/25/19 02/25/19 02/25/19 06:23 07:30 08:21 Temperature 98.5 F Pulse Rate 76 Pulse Rate [ 76 Right Radial] Respiratory 20 20 20 Rate Respiratory Rate [right stump] Blood Pressure 146/53 O2 Sat by Pulse 99 99 Oximetry - General Appearance General appearance: well-developed, appears stated age, other (no distress) EENT: ATNC, hearing diminished Neck: supple Respiratory: Present: Clear to Ascultation Cardiology: regular, S1S2, no murmurs Gastrointestinal: normoactive bowel sounds, no tenderness, no distended Integumentary: no rash, warm and dry Neurologic: no asterixis, confused, disoriented, other (diminished vision) Musculoskeletal: other (L arm AVF, R BKA) Psychiatric: cooperative - Lab 02/23/19 09:14 02/25/19 05:50 Most recent lab results Calcium 8.4 mg/dL (8.4-10.2) 02/25/19 05:50 Medications & Allergies - Medications Allergies/Adverse Reactions: Allergies Iodinated Contrast- Oral and IV Dye Allergy (Verified 11/25/18 15:48) Hives, Rash Penicillins Allergy (Verified 11/25/18 15:48) Hives Home Medications: Home Medications Medication Instructions Recorded Confirmed Last Taken Type B Complex 11/Folic/C/Biot/Zinc 1 each PO DAILY 09/06/15 02/25/19 11/25/18 20:00 History [Dialyvite with Zinc Tablet] Lispro Insulin [HumaLOG] 7 unit SQ AC 11/25/18 02/25/19 Unknown History Pantoprazole Sodium 40 mg PO DAILY 11/25/18 02/25/19 11/26/18 05:00 History amLODIPine [Norvasc] 5 mg PO DAILY 11/25/18 02/25/19 11/28/18 History 2.5 Ranitidine HCl [Zantac] 300 mg PO BID 02/16/19 02/25/19 Unknown History Calcium Acetate 667 mg PO AC 02/18/19 02/25/19 Unknown History Levothyroxine 0.05 mg PO QDAY 02/18/19 02/25/19 Unknown History Lyrica 75 mg PO HS 02/18/19 02/25/19 Unknown History Pravastatin 40 mg PO HS 02/18/19 02/25/19 Unknown History Zetia 10 mg PO HS 02/18/19 02/25/19 Unknown History Aspirin EC 81 mg PO QDAY #30 tablet 02/25/19 02/25/19 Unknown Rx Clopidogrel [Plavix] 75 mg PO QDAY #30 tablet 02/25/19 02/25/19 Unknown Rx oxyCODONE /ACETAMINOPHEN [Percocet 1 tab PO Q6H PRN #14 tablet 02/25/19 02/25/19 Unknown Rx 5/325 mg] Active Medications: Generic Name Dose Route Start Last Admin Trade Name Freq PRN Reason Stop Dose Admin Albuterol 2.5 mg 02/16/19 16:32 Proventil IH Q3HRT PRN Shortness Of Breath Amlodipine Besylate 5 mg 02/17/19 10:00 02/24/19 13:26 Norvasc PO Not Given DAILY JUAQUIN Aspirin 81 mg 02/19/19 14:00 02/24/19 10:46 Halfprin Ec PO 81 mg QDAY JUAQUIN Administration Clopidogrel Bisulfate 75 mg 02/19/19 14:00 02/24/19 10:43 Plavix PO 75 mg QDAY JUAQUIN Administration Dextrose 50 ml 02/16/19 16:35 02/23/19 08:34 D50w (25gm) Syringe IV 50 ml PRN PRN Administration Hypoglycemia Diphenhydramine HCl 25 mg 02/19/19 07:52 02/20/19 04:50 Benadryl IV 25 mg Q6H PRN Administration Itching Epoetin Uqincy 20,000 unit 02/17/19 14:18 02/24/19 21:33 Procrit SUB-Q 20,000 unit ANNI PRN Administration hemodialysis Famotidine 10 mg 02/16/19 22:00 02/24/19 23:04 Pepcid PO 10 mg BID JUAQUIN Administration Heparin Sodium (Porcine) 5,000 unit 02/18/19 22:00 02/25/19 05:22 Heparin SUB-Q 5,000 unit Q8HR JUAQUIN Administration Hydromorphone HCl 0.5 mg 02/20/19 15:55 Dilaudid IM Q10M PRN Pain , Severe (7-10) Sodium Chloride 100 mls @ 999 mls/hr 02/17/19 14:18 Nacl 0.9% IV ANNI PRN Hypotension Sodium Chloride 1,000 mls @ 42 mls/hr 02/20/19 12:00 Nacl 0.9% 1000 Ml IV DIRECT JUAQUIN Vancomycin HCl 1 gm in 250 mls @ 167.007 mls/hr 02/26/19 18:00 Vancomycin/Ns 1 Gm/250 Ml IV 03/19/19 19:30 TuThSa@1800 [facility] Insulin Human Lispro 0 unit 02/19/19 11:30 02/25/19 07:36 Humalog SUB-Q Not Given [facility] Protocol Morphine Sulfate 2 mg 02/17/19 23:37 02/23/19 06:20 Morphine IV 2 mg Q3H PRN Administration Pain, Moderate (4-6) Multivit/Ca Carb/B Cmplx/FA/Prenat 1 cap 02/17/19 10:00 02/24/19 10:43 Renal Caps PO 1 cap QDAY JUAQUIN Administration Ondansetron HCl 4 mg 02/18/19 11:34 Zofran IV Q6H PRN Nausea And Vomiting Oxycodone/Acetaminophen 1 tab 02/16/19 16:32 02/25/19 05:23 Percocet 5/325 PO 1 tab Q6H PRN Administration Pain, Moderate (4-6) Sodium Chloride 10 ml 02/16/19 22:00 02/24/19 23:05 Sodium Chloride Flush Syringe 10 Ml IV 10 ml BID JUAQUIN Administration Sodium Chloride 10 ml 02/16/19 16:32 02/23/19 14:04 Sodium Chloride Flush Syringe 10 Ml IV 10 ml PRN PRN Administration LINE FLUSH Sodium Polystyrene Sulfonate 15 gm 02/24/19 13:56 02/24/19 16:57 Kionex PO 15 gm Q6HR PRN Administration Hyperkalemia
--- NOTE | 2019-02-25 14:33 | Discharge Summary ---
Providers - Providers Date of Admission: 02/16/19 16:32 Date of discharge: 02/25/19 Attending physician: BIBI JOHNSON 02/16/19 16:21 Consult to Physician [CONS] Routine Comment: Consulting Provider: OMER SANDOVAL Physician Instructions: Reason For Exam: dry gangrene 02/16/19 16:36 Consult to Physician [CONS] Routine Comment: Consulting Provider: CHUNG YOU Physician Instructions: Reason For Exam: esrd 02/16/19 19:30 Consult to Physician [CONS] Routine Comment: Consulting Provider: ELMIRA MUKHERJEE Physician Instructions: Reason For Exam: dysphagia 02/17/19 09:28 Consult to Wound/ET Nurse [CONS] Stat Reason For Exam: wound eval 02/18/19 08:49 Consult to Physician [CONS] Routine Comment: Consulting Provider: JULIA MOMIN Physician Instructions: Reason For Exam: s.aureus bacteremia, right foot gangrene 02/19/19 07:45 Consult to PICC Line RN [CONS] Stat Reason For Exam: Require blood transfusion Type Line:: Midline 02/21/19 08:29 Physical Therapy Evaluation and Treat [CONS] Routine Comment: Reason For Exam: right foot amputation 02/22/19 09:26 Consult to Case Management [CONS] Routine Services Needed at Discharge: Other Notified:: VIVIANA Marshall Physician Instructions: [facility] M [phone] O [phone] F [phone] OUTPATIENT PARENTERAL ANTIBIOTIC THERAPY ORDERS Diagnoses: MRSA Bacteremia Antimicrobial administration: Anticipate discharge on Vancomycin 1 gm post HD Saturday, , Saturday for 4 w eeks ending 03-19-19 Lines: HD catheter Lab monitoring: CBC, ALT, AST, vancomycin trough once a week preferly on Saturday morning. Please fax results to [phone] and call [phone] for critical lab results. Lachelle Proctor NP/Julia Church MD Date: 02/22/19 02/25/19 14:05 Occupational Therapy Evaluate and Treat [CONS] Routine Comment: Reason For Exam: Debility s/p BKA [facility] Condition: Fair Hospital course: 78-year-old woman who presented to the hospital with right foot pain, she was already scheduled for amputation as an outpatient, but could not keep the appointment due to worsening pain. Pt seen and evaluated in ED and found to have Sepsis secondary to RLE Gangrene, ESRD, and Acidosis. Surgery consulted in ED, Nephrology consulted in ED. Pt admitted to [facility]. Radiological data: Foot x-ray, chest x-ray Discharge diagnosis and management: /Right lower extremity gangrene due to severe peripheral arterial disease -Status post right lower extremity angioplasty and status post right BKA - Wound care was consulted and will follow as outpt - PT consulted and recommended acute rehabilitation /PVD -s/p Angiogram showed following 1) Aortography and right lower extremity angiography demonstrating 70% SFA stenosis in the mid to distal portion, complete occlusion of the posterior tibial artery and long segment occlusion of the anterior tibial artery with perineal runoff to the foot. 2) Treatment of the SFA lesion with angioplasty and drug coated balloon with residual less than 10% stenosis. 3: Treatment of the anterior tibial artery with atherectomy and angioplasty with residual attended 20% stenosis -Patient will do further follow-up as an outpatient /Severe anemia - acute on chronic, likely due to chronic illness and recent surgery - transfused 2 units of blood and h/h is stable /Sepsis, with MRSA bacteremia -Infectious disease consult appreciated, continue antibiotics, currently on van comycin, -Possible discharge on Vancomycin 1 gm post HD Saturday, , Saturday for 4 weeks ending 03-19-19 -Order placed with case management -ID f/u in 3 weeks (sent to monotyper) /End-stage renal disease on hemodialysis - Continue dialysis as scheduled by renal /hypothyroidism, on synthroid /HTN, cont amlodipine DVT prophylaxis; heparin sq Disposition; to acute rehabilitation Hospitalist Physical exam: GENERAL: well-developed elderly -[place] female lying on bed appeared to be in no discomfort. HEENT: Normocephalic. Atraumatic. No conjunctival congestion or icterus. Patient has moist mucous membranes. NECK: Supple. Trachea midline. CHEST/LUNGS: Clear to auscultated bilaterally, breathing nonlabored. No wheezes crackles or rhonchi. HEART/CARDIOVASCULAR: Regular in rate and rhythm. S1 and S2 positive. ABDOMEN: Abdomen is soft, nontender. Patient has normal bowel sounds. SKIN: There is no rash. Warm and dry. NEURO: No focal motor deficit. Follows command. MUSCULOSKELETAL: No joint effusion EXTRIMITY: No edema, no cyanosis or clubbing. Right BKA PSYCH: Cooperative. Disposition: [id number]/[id number] INPT REHAB FACILITY Time spent for discharge: 34 minutes Core Measure Documentation - Palliative Care Palliative Care/ Comfort Measures: Not Applicable - Core Measures Any of the following diagnoses?: none Exam - Constitutional Vitals: Temp Pulse Resp BP Pulse Ox 98.5 F 76 18 146/53 99 02/25/19 07:30 02/25/19 10:00 02/25/19 13:09 02/25/19 09:31 02/25/19 10:00 Plan Activity: up only with assistance, fall precautions Weight Bearing Status: Non-Weight Bearing Diet: renal Wound: per your surgeon's advice, per wound nurse instructions Special Instructions: record blood sugar diary Additional Instructions: Continue on Vancomycin 1 gm post HD Saturday, , Saturday for 4 weeks ending 03-19-19 Follow up with: JULIA MOMIN MD [Staff Physician] - 7 Days BETHPAGE PAULA ANDERSON MD [Primary Care Provider] - 3-5 Days
[2019-02-25 14:34] VITALS: BP 154/68
[2019-02-25] MEDS: MORPHINE IV PRN (16:26)
[2019-02-25] MEDS: SODIUM CHLORIDE FLUSH SYRINGE 10 ML IV PRN (16:29)
[2019-02-25] MEDS ORDERED: CALCIUM ACETATE 667 MG PO SCH (16:30)
[2019-02-25] MEDS ORDERED: PHOSLO PO SCH (16:30)
[2019-02-25] MEDS ORDERED: LYRICA PO SCH (22:00)
[2019-02-25] MEDS ORDERED: ZETIA PO SCH (22:00)
[2019-02-25] MEDS ORDERED: LYRICA 75 MG PO SCH (22:00)
[2019-02-25] MEDS ORDERED: ZETIA 10 MG PO SCH (22:00)
[2019-02-25] MEDS ORDERED: PRAVACHOL PO SCH (22:00)
[2019-02-25] MEDS ORDERED: NON-FORMULARY (Pravastatin 40 MG) PO SCH (22:00)
[2019-02-26] MEDS ORDERED: SYNTHROID PO SCH (06:00)
[2019-02-26] MEDS ORDERED: LEVOTHYROXINE 0.05 MG PO SCH (10:00)
[2019-02-26] MEDS ORDERED: VANCOMYCIN/NS 1 GM/250 ML 1 GM/250 ML BAG IV SCH (18:00)
== END 2019-02-25 17:50 | DRG 853 ==
LOC: ED 11:35 → IMCU 16:32 → 2B-ACE 02-21 17:28
PROVIDERS: ADMIT Internal Medicine; ATTEND Internal Medicine
PROC: 5A1D70Z Performance of Urinary Filtration, Intermittent, Less than 6 Hours Per Day (ICD-10-PCS; 2019-02-17)
PROC: 04CP3ZZ Extirpation of Matter from Right Anterior Tibial Artery, Percutaneous Approach (ICD-10-PCS; 2019-02-18)
PROC: 047P3ZZ Dilation of Right Anterior Tibial Artery, Percutaneous Approach (ICD-10-PCS; 2019-02-18)
PROC: 047K3Z1 Dilation of Right Femoral Artery using Drug-Coated Balloon, Percutaneous Approach (ICD-10-PCS; 2019-02-18)
PROC: B41D1ZZ Fluoroscopy of Aorta and Bilateral Lower Extremity Arteries using Low Osmolar Contrast (ICD-10-PCS; 2019-02-18)
PROC: B41G1ZZ Fluoroscopy of Left Lower Extremity Arteries using Low Osmolar Contrast (ICD-10-PCS; 2019-02-18)
PROC: 5A1D70Z Performance of Urinary Filtration, Intermittent, Less than 6 Hours Per Day (ICD-10-PCS; 2019-02-19)
PROC: 30233N1 Transfusion of Nonautologous Red Blood Cells into Peripheral Vein, Percutaneous Approach (ICD-10-PCS; 2019-02-19)
PROC: 0Y6H0Z3 Detachment at Right Lower Leg, Low, Open Approach (ICD-10-PCS; principal; 2019-02-20)
PROC: 5A1D70Z Performance of Urinary Filtration, Intermittent, Less than 6 Hours Per Day (ICD-10-PCS; 2019-02-21)
PROC: 5A1D70Z Performance of Urinary Filtration, Intermittent, Less than 6 Hours Per Day (ICD-10-PCS; 2019-02-24)
DX: A41.01 Sepsis due to Methicillin susceptible Staphylococcus aureus (principal); N18.6 End stage renal disease; I13.2 Hypertensive heart and chronic kidney disease with heart failure and with stage 5 chronic kidney disease, or end stage renal disease; E11.52 Type 2 diabetes mellitus with diabetic peripheral angiopathy with gangrene; I96 Gangrene, not elsewhere classified; I50.32 Chronic diastolic (congestive) heart failure; M86.671 Other chronic osteomyelitis, right ankle and foot; E11.22 Type 2 diabetes mellitus with diabetic chronic kidney disease; K21.9 Gastro-esophageal reflux disease without esophagitis; M19.90 Unspecified osteoarthritis, unspecified site; J44.9 Chronic obstructive pulmonary disease, unspecified; H54.8 Legal blindness, as defined in USA; E03.9 Hypothyroidism, unspecified; E11.40 Type 2 diabetes mellitus with diabetic neuropathy, unspecified; D63.1 Anemia in chronic kidney disease; G47.33 Obstructive sleep apnea (adult) (pediatric); S91.301A Unspecified open wound, right foot, initial encounter; E66.9 Obesity, unspecified; E11.69 Type 2 diabetes mellitus with other specified complication; E11.51 Type 2 diabetes mellitus with diabetic peripheral angiopathy without gangrene; I70.203 Unspecified atherosclerosis of native arteries of extremities, bilateral legs; I70.0 Atherosclerosis of aorta; X58.XXXA Exposure to other specified factors, initial encounter; Y93.89 Activity, other specified; Y92.89 Other specified places as the place of occurrence of the external cause; Y99.8 Other external cause status; Z88.0 Allergy status to penicillin; Z91.041 Radiographic dye allergy status; Z86.73 Personal history of transient ischemic attack (TIA), and cerebral infarction without residual deficits; Z90.49 Acquired absence of other specified parts of digestive tract; Z79.4 Long term (current) use of insulin; Z87.891 Personal history of nicotine dependence; Z68.27 Body mass index [BMI] 27.0-27.9, adult
CPT/HCPCS: 36415; 36430; 37224; 37229; 71045; 75716; 76937; 80048; 80053; 80202; 82140; 82947; 82962; 85007; 85018; 85025; 85027; 85730; 86140; 86850; 86900; 86901; 86920; 87040; 87186; 88307; 88311; 93306; 94760; G0378; C1724; C1725; C1760; C1769; C1887; C2623; J0171; J0330; J0690; J0885; J1170; J1200; J1644; J1815; J2001; J2250; J2270; J2370; J2405; J2704; J2930; J3010; J3370; J7030; J7040; J7050; P9016; Q9967

== ENCOUNTER 2019-02-25 17:22 | Inpatient (IN) | payer MEDICARE ==
[2019-02-25] MEDS ORDERED: D50W (25GM) Syringe IV PRN (18:31)
[2019-02-25] MEDS ORDERED: PROCRIT SUB-Q PRN (18:39)
[2019-02-25] MEDS ORDERED: KIONEX PO PRN (18:39)
[2019-02-25] MEDS ORDERED: Renal Caps PO ONE ×2 (18:39)
[2019-02-25] MEDS ORDERED: VANCOMYCIN PHARMACY TO DOSE IV SCH (19:00)
[2019-02-25] MEDS: PRAVACHOL PO SCH (22:41)
[2019-02-25] MEDS: HEPARIN SUB-Q SCH (22:42)
[2019-02-25] MEDS: LYRICA PO SCH (22:42)
[2019-02-25] MEDS: ZETIA PO SCH (22:42)
[2019-02-25] MEDS: PEPCID PO SCH (22:42)
[2019-02-25] MEDS: HumaLOG SUB-Q SCH (23:04)
[2019-02-26] MEDS: SYNTHROID PO SCH (06:28)
[2019-02-26] MEDS: HEPARIN SUB-Q SCH ×3 (06:28→21:55)
[2019-02-26] MEDS: PEPCID PO SCH ×2 (08:00→21:55)
[2019-02-26] MEDS: PHOSLO PO SCH ×3 (08:00→16:30)
[2019-02-26] MEDS: PLAVIX PO SCH (08:00)
--- NOTE | 2019-02-26 10:26 | History and Physical Report ---
History of Present Illness Date: 02/26/19 Date of admission: 02/25/19 18:31 Chief Complaint: Right BKA History of present illness: 78-year-old female with right foot pain present your found to have sepsis. Amputation was previously discussed for the right lower extremity gangrene however family refused. Patient had been undergoing treatment HBOT without resolution. ID was consulted and started antibiotics. Vascular surgery performed angiography. Afterwards she was scheduled for a right BKA which proceeded without incident. After the patient was medically stabilized they were transferred for further rehabilitation. All available medical records have been reviewed but there are limited records from the [facility]. Plan of care was discussed with patient and family. Patient seemed a little confused at times this morning with myself as well as therapy staff. 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 Very well could be early stages of dementia with exacerbation due to new surroundings or could be due to metabolic issues and recent medications. Have asked speech to evaluate the patient for cognition and we will continue to monitor for further improvement. Past History Past Medical History: diabetes, dialysis, ESRD, GERD, heart failure, hype rtension, hypothyroidism, other (legally blind, GILBERTO) Past Surgical History: cholecystectomy Social history: single, lives with family, full code. denies: smoking, alcohol abuse Family history: diabetes, hypertension Medications and Allergies Allergies Allergy/AdvReac Type Severity Reaction Status Date / Time Iodinated Contrast- Oral and Allergy Hives, Rash Verified 11/25/18 15:48 IV Dye Penicillins Allergy Hives Verified 11/25/18 15:48 Home Medications Medication Instructions Recorded Confirmed Last Taken Type B Complex 11/Folic/C/Biot/Zinc 1 each PO DAILY 09/06/15 02/25/19 11/25/18 20:00 History [Dialyvite with Zinc Tablet] Lispro Insulin [HumaLOG] 7 unit SQ AC 11/25/18 02/25/19 Unknown History Pantoprazole Sodium 40 mg PO DAILY 11/25/18 02/25/19 11/26/18 05:00 History amLODIPine [Norvasc] 5 mg PO DAILY 11/25/18 02/25/19 11/28/18 History 2.5 Ranitidine HCl [Zantac] 300 mg PO BID 02/16/19 02/25/19 Unknown History Calcium Acetate 667 mg PO AC 02/18/19 02/25/19 Unknown History Levothyroxine 0.05 mg PO QDAY 02/18/19 02/25/19 Unknown History Lyrica 75 mg PO HS 02/18/19 02/25/19 Unknown History Pravastatin 40 mg PO HS 02/18/19 02/25/19 Unknown History Zetia 10 mg PO HS 02/18/19 02/25/19 Unknown History Aspirin EC 81 mg PO QDAY #30 tablet 02/25/19 02/25/19 Unknown Rx Clopidogrel [Plavix] 75 mg PO QDAY #30 tablet 02/25/19 02/25/19 Unknown Rx oxyCODONE /ACETAMINOPHEN [Percocet 1 tab PO Q6H PRN #14 tablet 02/25/19 02/25/19 Unknown Rx 5/325 mg] Active Meds: Active Medications Albuterol (Proventil) 2.5 mg IH Q4HRT PRN PRN Reason: Shortness Of Breath Amlodipine Besylate (Norvasc) 5 mg PO QDAY [facility] Aspirin (Halfprin Ec) 81 mg PO QDAY [facility] Calcium Acetate (Phoslo) 667 mg PO AC [facility] Clopidogrel Bisulfate (Plavix) 75 mg PO QDAY [facility] Dextrose (D50w (25gm) Syringe) 50 ml IV PRN PRN PRN Reason: Hypoglycemia Diphenhydramine HCl (Benadryl) 25 mg PO Q6H PRN PRN Reason: Itching Ezetimibe (Zetia) 10 mg PO HS [facility] Last Admin: 02/25/19 22:42 Dose: 10 mg Documented by: Epoetin Quincy (Procrit) 20,000 unit SUB-Q ANNI PRN PRN Reason: Dialysis Famotidine (Pepcid) 10 mg PO BID [facility] Last Admin: 02/25/19 22:42 Dose: 10 mg Documented by: Heparin Sodium (Porcine) (Heparin) 5,000 unit SUB-Q Q8HR [facility] Last Admin: 02/26/19 06:28 Dose: 5,000 unit Documented by: Vancomycin HCl (Vancomycin/Ns 1 Gm/250 Ml) 1 gm in 250 mls @ 166.667 mls/hr IV TuThSa@1800 [facility] Insulin Human Lispro (Humalog) 0 unit SUB-Q QHS [facility]; Protocol Last Admin: 02/25/19 23:04 Dose: 1 unit Documented by: Levothyroxine Sodium (Synthroid) 50 mcg PO DAILY@0600 [facility] Last Admin: 02/26/19 06:28 Dose: 50 mcg Documented by: Multivit/Ca Carb/B Cmplx/FA/Prenat (Renal Caps) 1 cap PO QDAY [facility] Oxycodone/Acetaminophen (Percocet 5/325) 1 tab PO Q6H PRN PRN Reason: Pain, Moderate (4-6) Pravastatin Sodium (Pravachol) 40 mg PO QHS [facility] Last Admin: 02/25/19 22:41 Dose: 40 mg Documented by: Pregabalin (Lyrica) 75 mg PO HS [facility] Last Admin: 02/25/19 22:42 Dose: 75 mg Documented by: Sodium Polystyrene Sulfonate (Kionex) 15 gm PO Q6HR PRN PRN Reason: Hyperkalemia Review of Systems All systems: negative (ROS negative for 12 systems except as noted below with pertinent positives and negatives.) Constitutional: fatigue Eyes: bilateral: decreased vision Ears, nose, mouth and throat: decreased hearing (at times) Cardiovascular: high blood pressure, decreased exercise tolerance, no shortness of breath Respiratory: home oxygen Gastrointestinal: no abdominal pain, no nausea, no vomiting, no diarrhea, no constipation Musculoskeletal: gait dysfunction, prior amputations, no shooting leg pain, no leg numbness/tingling Integumentary: no rash, no pruritis, no redness Neurological: confusion, memory loss, balance difficulties, gait dysfunction, no syncope, no lack of coordination Exam - Exam Narrative exam: MUSCULOSKELETAL SPECIALTY EXAM CONSTITUTIONAL: Well developed, well nourished, appropriately groomed LYMPHATIC: No appreciable abnormalities palpable in neck EENT: Visual mora full to confrontation. EOMI. Oropharynx clear. Hearing mostly intact to normal voice RESPIRATORY: Clear to auscultation bilaterally, no increased work of breathing. Supplemental O2 CARDIOVASCULAR: Regular Rate/ Rhythm, no swelling, edema or tenderness in BUE or BLE. Pulses palpable in all extremities. All extremities warm. Thrill in LUE GI: + bowel sounds, soft, NTTP, nondistended. INTEGUMENTARY: Normal, no lesion, rash, masses or bruising noted in extremities. MUSCULOSKELETAL: Right BKA, otherwise BUE and BLE normal without defect, crepitus, subluxation, effusion, arthritic changes or TTP. BUE 4/5, good ROM, with normal tone. LLE 4-/5 good ROM, with normal tone, RLE decreased ROM secondary to pain NEURO: CN 2-12 grossly intact. Sensation intact in all extremities. Reflexes 1+ bilaterally at biceps, brachioradialis and left patella. No clonus at ankle. Coordination intact in BUE. No tremor noted in 4 extremities. POSTURE and GAIT: Sitting posture good. Balance appears reasonable. Gait deferred until seen with therapy. PSYCH: Alert, orientated x1, slightly confused at times and decreased memory, affect appears normal. - Constitutional Vitals: Vital Signs - 12hr 02/26/19 04:25 Temperature 36.7 C Pulse Rate 69 Respiratory 18 Rate Blood Pressure 139/65 O2 Sat by Pulse 97 Oximetry - Labs CBC & Chem 7: 02/26/19 11:01 02/26/19 11:01 Labs: Laboratory Results - last 72 hr 02/25/19 02/26/19 22:08 08:24 POC Glucose 190 H 112 H Assessment and Plan Assessment and plan: Patient was assessed and evaluated for Acute Inpatient Rehab Unit. Due to the patients above-mentioned medical complexity, along with decreased functional mobility and self care, this patient continues to require and be appropriate for a comprehensive, multidisciplinary [id number] rehabilitation program. These needs cannot be met in an outpatient or other less intensive setting. The patient would continue to benefit from skilled therapy intervention for at least 3 hours per day, five days a week, with techniques specific to the needs of the patient to improve function, activities of daily living, and reintegration into the community. The patient continues to require: -- OT to improve ROM, self-care, and learn use of adaptive equipment -- PT to improve strength and balance, functional transfers, and ambulation with energy conservation techniques to improve functional mobility -- FELT FINISHING SUPERVISOR to address cognitive deficits -- 24 hour RN to ensure and prevent skin breakdown, promote progressive independence while ensuring safety, ensure education regarding medications, and incorporation of the rehabilitation at the bedside -- 24 hour Motor Vehicle Examiner to coordinate this interdisciplinary program, and to manage/prevent complications as a result of the patients medical comorbidities. -Plan of care by day 4 -Weekly team conferences With such a program, there is a reasonable certainty that the goals individualized for this patient can be achieved within the specified length of stay. R NINAA: Will likely be a K1 ambulator, K2 may be in reach with continued work. After speaking with daughter, patient will most likely remain K1. Monitor wound. On isolation for MRSA in Blood with 4 weeks vancomycin during dialysis. Continue to work on transfers and mobility. Monitor for phantom sensation/pain. Will discuss possible nursing home prosthesis. We'll also discuss with in-house infection control to see if we can adapt the rules for therapy to allow the patient to go to the gym. Last blood culture was negative and patient remains on antibiotics with no excessive drainage from the wound. GILBERTO: Cont CPAP HTN: Monitor BP and adjust meds for normotension DM: Carb controlled diet. Monitor glucose. SSI Decreased memory: Will ask FELT FINISHING SUPERVISOR to assess cognitive function Hypothyroidism: Continue medication Z73.6 ADL dysfunction: OT will work on improving ability to perform ADLs (including assistive devices) to increase independence and decrease caregiver burden and improve functional transfers and mobility training. R26.2 Difficulty walking: PT will work on gait training and proper use of assistive devices and advance as appropriate to use of stairs and outside ambulation on uneven surfaces. R26.81 Unsteadiness on feet: PT will work on improving static and dynamic sitting and standing balance as well as proper use of assistive devices to decrease risk of falls. R26.89 Abnormality of gait: PT will work to improve safety and efficiency of gait through neuromotor training and gait training along with instruction on proper use of assistive devices. M62.81 Muscle weakness: PT & OT will work on strengthening exercises to improve functional strength including mixture of closed and open kinetic chain exercises. R53.81 Debility: PT & OT will work on improving overall functional status to improve participation with ADLs, mobility and social involvement. R53.83 Fatigue: PT & OT will work on improving endurance through aerobic exercises and therapeutic activity while monitoring patients tolerance for activity and vital signs as needed. DVT ppx: heparin Pain: Continue physical modalities in therapy and pain medications as needed to achieve functional pain control. Sleep: Monitor and address as needed. Bowel: Monitor and address as needed. Appetite: Monitor and address as needed. Discharge planning: Pending therapy progress and care plan meeting. Will continue discussion with therapy team, SW, patient and family. Restrictions/ Precautions: Falls WB status: FWB Functional Hx: ADLs: Independent Cognition: Needed assistance Mobility: Cane and w/c for distance Barriers to Discharge: Decreased mobility and ability to perform self care, balance deficits, weakness, cognition Estimated Length of Stay: 14-18 days Discharge Destination: Home with family POST ADMISSION PHYSICIAN EVALUATION I have examined the patient and find that functional status, medical condition and appropriateness for IRF admission are essentially unchanged from those described in the preadmission screening. Will monitor for worsening wound condition, DVT/PE, bowel and bladder complications and complications due to DM, HTN and electrolyte abnormalities. Will attempt to avoid occurrence of these issues or treat them if they present themselves.
[2019-02-26 11:27] LABS: Hematocrit 30.6 % (30.3-42.9); Hemoglobin 9.4 gm/dl (10.1-14.3); Mean Corpuscular HGB Conc 31 % (30-34); Mean Corpuscular Volume 78 fl (79-97); Platelet Count 380 K/mm3 (140-440); Red Blood Count 3.91 M/mm3 (3.65-5.03)
[2019-02-26 11:31] LABS: Red Cell Distribution Width 22.4 % (13.2-15.2)
[2019-02-26] MEDS: HALFPRIN EC PO SCH (11:51)
[2019-02-26 11:53] LABS: Albumin 2.6 g/dL (3.9-5); Calcium 8.7 mg/dL (8.4-10.2)
[2019-02-26] MEDS: PERCOCET 5/325 PO PRN (12:12)
[2019-02-26 12:30] LABS: Basophils % (Manual) 0 % (0.0-1.8); Total Cells Counted 100
[2019-02-26] MEDS ORDERED: NACL 0.9% 100 ML IV PRN (12:30)
[2019-02-26 12:31] LABS: Anisocytosis 1+; Hypochromasia 1+; Ovalocytes Few
[2019-02-26 12:32] LABS: Platelet Estimate Consistent w Auto; Target Cells Few
--- NOTE | 2019-02-26 13:55 | Progress Note ---
Assessment and Plan 1. ESRD: Continue hemodialysis three times a week, TTS schedule. 2. Anemia: S/p 2 units of PRBC on 02/19/19. Epogen with HD. 3. PAD: S/p R LE angioplasty and R BKA. 4. GILBERTO: CPAP. 5. DM type 2. 6. HTN: BP well controlled. Subjective Date of service: 02/26/19 Interval history: Patient was seen and examined at the bedside. Patient was moved to Rehab unit. Objective - Vital Signs Vital signs: Vital Signs - 12hr 02/26/19 02/26/19 02/26/19 04:25 08:18 12:55 Temperature 98.0 F 97.9 F 97.9 F Pulse Rate 69 67 Respiratory 18 18 18 Rate Blood Pressure 139/65 143/62 145/54 O2 Sat by Pulse 97 93 90 Oximetry - General Appearance General appearance: well-developed, appears stated age, other (no distress) EENT: ATNC, hearing diminished Neck: supple Respiratory: Present: Clear to Ascultation Cardiology: regular, S1S2, no murmurs Gastrointestinal: normoactive bowel sounds, no tenderness, no distended Integumentary: no rash, warm and dry Neurologic: no asterixis, disoriented, other (diminished vision b/l) Musculoskeletal: other (no edema, R BKA, L arm AVF) Psychiatric: cooperative - Lab 02/26/19 11:01 02/26/19 11:01 Most recent lab results Calcium 8.7 mg/dL (8.4-10.2) 02/26/19 11:01 Medications & Allergies - Medications Allergies/Adverse Reactions: Allergies Iodinated Contrast- Oral and IV Dye Allergy (Verified 11/25/18 15:48) Hives, Rash Penicillins Allergy (Verified 11/25/18 15:48) Hives Home Medications: Home Medications Medication Instructions Recorded Confirmed Last Taken Type B Complex 11/Folic/C/Biot/Zinc 1 each PO DAILY 09/06/15 02/25/19 11/25/18 20:00 History [Dialyvite with Zinc Tablet] Lispro Insulin [HumaLOG] 7 unit SQ AC 11/25/18 02/25/19 Unknown History Pantoprazole Sodium 40 mg PO DAILY 11/25/18 02/25/19 11/26/18 05:00 History amLODIPine [Norvasc] 5 mg PO DAILY 11/25/18 02/25/19 11/28/18 History 2.5 Ranitidine HCl [Zantac] 300 mg PO BID 02/16/19 02/25/19 Unknown History Calcium Acetate 667 mg PO AC 02/18/19 02/25/19 Unknown History Levothyroxine 0.05 mg PO QDAY 02/18/19 02/25/19 Unknown History Lyrica 75 mg PO HS 02/18/19 02/25/19 Unknown History Pravastatin 40 mg PO HS 02/18/19 02/25/19 Unknown History Zetia 10 mg PO HS 02/18/19 02/25/19 Unknown History Aspirin EC 81 mg PO QDAY #30 tablet 02/25/19 02/25/19 Unknown Rx Clopidogrel [Plavix] 75 mg PO QDAY #30 tablet 02/25/19 02/25/19 Unknown Rx oxyCODONE /ACETAMINOPHEN [Percocet 1 tab PO Q6H PRN #14 tablet 02/25/19 02/25/19 Unknown Rx 5/325 mg] Active Medications: Generic Name Dose Route Start Last Admin Trade Name Freq PRN Reason Stop Dose Admin Albuterol 2.5 mg 02/25/19 18:39 Proventil IH Q4HRT PRN Shortness Of Breath Amlodipine Besylate 5 mg 02/26/19 08:00 Norvasc PO QDAY [facility] Aspirin 81 mg 02/26/19 08:00 02/26/19 11:51 Halfprin Ec PO Not Given QDAY [facility] Calcium Acetate 667 mg 02/26/19 07:30 02/26/19 11:50 Phoslo PO Not Given [facility] Clopidogrel Bisulfate 75 mg 02/26/19 08:00 Plavix PO QDAY [facility] Dextrose 50 ml 02/25/19 18:31 D50w (25gm) Syringe IV PRN PRN Hypoglycemia Diphenhydramine HCl 25 mg 02/25/19 18:39 Benadryl PO Q6H PRN Itching Ezetimibe 10 mg 02/25/19 22:00 02/25/19 22:42 Zetia PO 10 mg HS [facility] Administration Epoetin Quincy 20,000 unit 02/25/19 18:39 Procrit SUB-Q ANNI PRN Dialysis Epoetin [place] 10,000 unit 02/26/19 13:00 Procrit IV ANNI [facility] Famotidine 10 mg 02/25/19 22:00 02/25/19 22:42 Pepcid PO 10 mg BID [facility] Administration Heparin Sodium (Porcine) 5,000 unit 02/25/19 22:00 02/26/19 06:28 Heparin SUB-Q 5,000 unit Q8HR [facility] Administration Vancomycin HCl 1 gm in 250 mls @ 166.667 mls/hr 02/26/19 18:00 Vancomycin/Ns 1 Gm/250 Ml IV 03/24/19 19:29 TuThSa@1800 [facility] Sodium Chloride 100 mls @ 999 mls/hr 02/26/19 12:30 Nacl 0.9% IV ANNI PRN Hypotension Insulin Human Lispro 0 unit 02/25/19 21:00 02/25/19 23:04 Humalog SUB-Q 1 unit QHS [facility] Administration Protocol Levothyroxine Sodium 50 mcg 02/26/19 06:00 02/26/19 06:28 Synthroid PO 50 mcg DAILY@0600 [facility] Administration Multivit/Ca Carb/B Cmplx/FA/Prenat 1 cap 02/27/19 08:00 Renal Caps PO QDAY [facility] Oxycodone/Acetaminophen 1 tab 02/25/19 18:39 02/26/19 12:12 Percocet 5/325 PO 1 tab Q6H PRN Administration Pain, Moderate (4-6) Pravastatin Sodium 40 mg 02/25/19 21:00 02/25/19 22:41 Pravachol PO 40 mg QHS [facility] Administration Pregabalin 75 mg 02/25/19 22:00 02/25/19 22:42 Lyrica PO 75 mg HS [facility] Administration Sodium Polystyrene Sulfonate 15 gm 02/25/19 18:39 Kionex PO Q6HR PRN Hyperkalemia
[2019-02-26] MEDS: PROCRIT IV SCH (17:58)
[2019-02-26] MEDS: NORVASC PO SCH (19:17)
[2019-02-26] MEDS: PRAVACHOL PO SCH (21:54)
[2019-02-26] MEDS: LYRICA PO SCH (21:54)
[2019-02-26] MEDS: ZETIA PO SCH (21:56)
[2019-02-26] MEDS: VANCOMYCIN/NS 1 GM/250 ML 1 GM/250 ML BAG IV SCH (21:56)
[2019-02-26] MEDS: HumaLOG SUB-Q SCH (23:26)
[2019-02-27] MEDS: HEPARIN SUB-Q SCH ×3 (07:01→22:03)
[2019-02-27] MEDS: SYNTHROID PO SCH (07:01)
[2019-02-27] MEDS: PHOSLO PO SCH ×3 (08:00→17:51)
[2019-02-27] MEDS: PEPCID PO SCH ×2 (11:30→22:02)
[2019-02-27] MEDS: Renal Caps PO SCH (11:30)
[2019-02-27] MEDS: PLAVIX PO SCH (11:30)
[2019-02-27] MEDS: PERCOCET 5/325 PO PRN ×2 (11:31→18:14)
[2019-02-27] MEDS: HALFPRIN EC PO SCH (11:31)
--- NOTE | 2019-02-27 12:09 | Progress Note ---
Assessment and Plan 1. ESRD: Continue hemodialysis three times a week, TTS schedule. 2. Anemia: S/p 2 units of PRBC on 02/19/19. Epogen with HD. 3. PAD: S/p R LE angioplasty and R BKA. 4. GILBERTO: CPAP. 5. DM type 2. 6. HTN: BP well controlled. Subjective Date of service: 02/27/19 Interval history: Patient was seen and examined at the bedside. Doing ok. Objective - Vital Signs Vital signs: Vital Signs - 12hr 02/27/19 08:24 Temperature 99.2 F Pulse Rate 68 Respiratory 18 Rate Blood Pressure 128/47 O2 Sat by Pulse 100 Oximetry - General Appearance General appearance: well-developed, appears stated age, other (no distress) EENT: ATNC, PERRL, hearing diminished Neck: supple Respiratory: Present: Clear to Ascultation Cardiology: regular, S1S2, no murmurs Gastrointestinal: normoactive bowel sounds, no tenderness, no distended Integumentary: no rash, warm and dry Neurologic: no asterixis, disoriented, other (diminished vision) Musculoskeletal: other (R BKA, no edema, L arm AVF) Psychiatric: cooperative - Lab 02/28/19 07:27 02/28/19 07:27 Most recent lab results Calcium 8.7 mg/dL (8.4-10.2) 02/26/19 11:01 Medications & Allergies - Medications Allergies/Adverse Reactions: Allergies Iodinated Contrast- Oral and IV Dye Allergy (Verified 11/25/18 15:48) Hives, Rash Penicillins Allergy (Verified 11/25/18 15:48) Hives Home Medications: Home Medications Medication Instructions Recorded Confirmed Last Taken Type B Complex 11/Folic/C/Biot/Zinc 1 each PO DAILY 09/06/15 02/25/19 11/25/18 20:00 History [Dialyvite with Zinc Tablet] Lispro Insulin [HumaLOG] 7 unit SQ AC 11/25/18 02/25/19 Unknown History Pantoprazole Sodium 40 mg PO DAILY 11/25/18 02/25/19 11/26/18 05:00 History amLODIPine [Norvasc] 5 mg PO DAILY 11/25/18 02/25/19 11/28/18 History 2.5 Ranitidine HCl [Zantac] 300 mg PO BID 02/16/19 02/25/19 Unknown History Calcium Acetate 667 mg PO AC 02/18/19 02/25/19 Unknown History Levothyroxine 0.05 mg PO QDAY 02/18/19 02/25/19 Unknown History Lyrica 75 mg PO HS 02/18/19 02/25/19 Unknown History Pravastatin 40 mg PO HS 02/18/19 02/25/19 Unknown History Zetia 10 mg PO HS 02/18/19 02/25/19 Unknown History Aspirin EC 81 mg PO QDAY #30 tablet 02/25/19 02/25/19 Unknown Rx Clopidogrel [Plavix] 75 mg PO QDAY #30 tablet 02/25/19 02/25/19 Unknown Rx oxyCODONE /ACETAMINOPHEN [Percocet 1 tab PO Q6H PRN #14 tablet 02/25/19 02/25/19 Unknown Rx 5/325 mg] Active Medications: Generic Name Dose Route Start Last Admin Trade Name Freq PRN Reason Stop Dose Admin Albuterol 2.5 mg 02/25/19 18:39 Proventil IH Q4HRT PRN Shortness Of Breath Amlodipine Besylate 5 mg 02/26/19 08:00 02/26/19 19:17 Norvasc PO Not Given QDAY [facility] Aspirin 81 mg 02/26/19 08:00 02/27/19 11:31 Halfprin Ec PO 81 mg QDAY [facility] Administration Calcium Acetate 667 mg 02/26/19 07:30 02/27/19 08:00 Phoslo PO Not Given AC [facility] Clopidogrel Bisulfate 75 mg 02/26/19 08:00 02/27/19 11:30 Plavix PO 75 mg QDAY [facility] Administration Dextrose 50 ml 02/25/19 18:31 D50w (25gm) Syringe IV PRN PRN Hypoglycemia Diphenhydramine HCl 25 mg 02/25/19 18:39 Benadryl PO Q6H PRN Itching Ezetimibe 10 mg 02/25/19 22:00 02/26/19 21:56 Zetia PO 10 mg HS [facility] Administration Epoetin Quincy 10,000 unit 02/26/19 13:00 02/26/19 17:58 Procrit IV 10,000 unit ANNI [facility] Administration Famotidine 10 mg 02/25/19 22:00 02/27/19 11:30 Pepcid PO 10 mg BID [facility] Administration Heparin Sodium (Porcine) 5,000 unit 02/25/19 22:00 02/27/19 07:01 Heparin SUB-Q 5,000 unit Q8HR [facility] Administration Vancomycin HCl 1 gm in 250 mls @ 166.667 mls/hr 02/26/19 18:00 02/26/19 21:56 Vancomycin/Ns 1 Gm/250 Ml IV 03/24/19 19:29 166.667 mls/hr TuThSa@1800 [facility] Administration Sodium Chloride 100 mls @ 999 mls/hr 02/26/19 12:30 Nacl 0.9% IV ANNI PRN Hypotension Insulin Human Lispro 0 unit 02/25/19 21:00 02/26/19 23:26 Humalog SUB-Q 4 unit QHS [facility] Administration Protocol Levothyroxine Sodium 50 mcg 02/26/19 06:00 02/27/19 07:01 Synthroid PO 50 mcg DAILY@0600 [facility] Administration Multivit/Ca Carb/B Cmplx/FA/Prenat 1 cap 02/27/19 08:00 02/27/19 11:30 Renal Caps PO 1 cap QDAY [facility] Administration Oxycodone/Acetaminophen 1 tab 02/25/19 18:39 02/27/19 11:31 Percocet 5/325 PO 1 tab Q6H PRN Administration Pain, Moderate (4-6) Pravastatin Sodium 40 mg 02/25/19 21:00 02/26/19 21:54 Pravachol PO 40 mg QHS [facility] Administration Pregabalin 75 mg 02/25/19 22:00 02/26/19 21:54 Lyrica PO 75 mg HS [facility] Administration Sodium Polystyrene Sulfonate 15 gm 02/25/19 18:39 Kionex PO Q6HR PRN Hyperkalemia
--- NOTE | 2019-02-27 15:02 | Progress Note ---
Subjective Date of service: 02/27/19 Principal diagnosis: R BKA Interval history: 78-year-old female with right foot pain present your found to have sepsis. Amputation was previously discussed for the right lower extremity gangrene however family refused. Patient had been undergoing treatment HBOT without resolution. ID was consulted and started antibiotics. Vascular surgery performed angiography. Afterwards she was scheduled for a right BKA which proceeded without incident. After the patient was medically stabilized they were transferred for further rehabilitation. All available medical records have been reviewed but there are limited records from the [facility]. Plan of care was discussed with patient and family. Patient is participating in therapy and making reasonable progress. Taking rest breaks as needed. Tolerated level of therapy today without issue but is tired currently. +BM. Denies pain, palpitations, dyspnea, cough, N/V, or joint pain. She does note that she has some phantom sensation but no overt phantom pain. Plan to visualize her wound tomorrow morning. Surgeon saw her yesterday and is okay with wound status. All records, vitals, labs and medications were reviewed. No other issues per patient, nursing or therapy. Objective - Exam Narrative Exam: MUSCULOSKELETAL SPECIALTY EXAM CONSTITUTIONAL: Well developed, well nourished, appropriately groomed EENT: Legally blind. Oropharynx clear. Hearing mostly intact to normal voice RESPIRATORY: Clear to auscultation bilaterally, no increased work of breathing. Supplemental O2 CARDIOVASCULAR: Regular Rate/ Rhythm, no swelling, edema or tenderness in BUE or BLE. Pulses palpable in all extremities. All extremities warm. Thrill in LUE GI: + bowel sounds, soft, NTTP, nondistended. INTEGUMENTARY: Normal, no lesion, rash, masses or bruising noted in extremities. Surgical wound on right lower extremity MUSCULOSKELETAL: Right BKA, otherwise BUE and BLE normal without defect, crepitus, subluxation, effusion, arthritic changes or TTP. BUE 4/5, good ROM, with normal tone. LLE 4-/5 good ROM, with normal tone, RLE decreased ROM secondary to pain NEURO: CN 2-12 grossly intact. Sensation intact in all extremities. No tremor noted in 4 extremities. POSTURE and GAIT: Sitting posture good. Balance appears reasonable. Gait deferred until seen with therapy. PSYCH: Alert, orientated x1, slightly confused at times and decreased memory, affect appears normal. - Constitutional Vitals: Vital Signs - 12hr 02/27/19 08:24 Temperature 37.3 C Pulse Rate 68 Respiratory 18 Rate Blood Pressure 128/47 O2 Sat by Pulse 100 Oximetry - Allied health notes Allied health notes reviewed: nursing, PT, OT FIMS assessment as documented by PT/OT/ST: Grooming Patient cleans teeth/dentures: Yes Patient holguin/brushes hair: No Patient washes, rinses and Yes dries face: Patient washes, rinses and Yes dries hands: Patient applies make-up: No Patient performs (no make-up/ 3/4 (75%) shaving): Grooming FIM Score 5. Supervision ([place] applies toothpaste or opens containers.) Toileting Toileting Device Bedpan Toileting FIM Score 2. Maximal Assistance (Patient = 25% or more) Social interaction/Memory/Problem solving Social Interaction FIM Score 5. Supervision (Needs supv. <10%. Needs encouragement to participate.) Memory FIM Score 3. Moderate Assistance (Recognizes and remembers 50-74%.) Problem Solving FIM Score 3. Moderate Assistance (Solves routine problems 50-74%.) Transfers Mode of Locomotion: Wheelchair Bed/Chair/Wheelchair Transfers 1. Total Assistance (Patient less than 25%. 2 or FIM Score more persons.) Toilet Transfers FIM Score 1. Total Assistance (Patient less than 25%. 2 or more persons.) Patient transferred to: Shower Shower Transfers FIM Score 1. Total Assistance (Patient less than 25%. 2 or more persons.) Locomotion- Stairs Stairs FIM Score 0. Activity does not occur Locomotion- walk/wheelchair Most Frequent Mode of Walking Locomotion: Walking FIM Score 0. Activity does not occur Wheelchair Propulsion Distance 60 Wheelchair FIM Score 2. Maximal Assistance (Patient = 25% or more. Minimum of 50 ft.) Eating Eating FIM Score 5. Supervision/Set-Up (Needs help w/ containers, cutting meat, etc.) Dressing-Upper body Patient retrieves clothing No items: Patient applies/removes UE No: n/a prosthesis or orthosis: Upper Body Dressing FIM Score 4. Minimal Assistance (Patient = 75% or more. Needs touching.) Dressing-lower body Patient retrieves clothing No items: Patient applies/removes LE No: n/a prosthesis or orthosis: Lower Body Dressing FIM Score 3. Moderate Assistance (Patient = 50% or more) - Labs CBC & Chem 7: 02/26/19 11:01 02/26/19 11:01 Labs: Laboratory Results - last 72 hr 02/25/19 02/26/19 02/26/19 22:08 08:24 11:01 WBC 7.4 RBC 3.91 Hgb 9.4 L Hct 30.6 MCV 78 L MCH 24 L MCHC 31 RDW 22.4 H Plt Count 380 Lymph % (Auto) Physical Medicine Specialist [place] % (Auto) Physical Medicine Specialist Eos % (Auto) Physical Medicine Specialist Baso % (Auto) Physical Medicine Specialist Lymph # Physical Medicine Specialist [place] # Physical Medicine Specialist Eos # Physical Medicine Specialist Baso # Physical Medicine Specialist Add Manual Diff Complete Total Counted 100 Seg Neutrophils % Physical Medicine Specialist Seg Neuts % (Manual) 86.0 H Band Neutrophils % 0 Lymphocytes % (Manual) 4.0 L Reactive Lymphs % (Man) 0 Monocytes % (Manual) 9.0 H Eosinophils % (Manual) 1.0 Basophils % (Manual) 0 Metamyelocytes % 0 Myelocytes % 0 Promyelocytes % 0 Blast Cells % 0 Nucleated RBC % Not Reportable Seg Neutrophils # Physical Medicine Specialist Seg Neutrophils # Man 6.4 Band Neutrophils # 0.0 Lymphocytes # (Manual) 0.3 L Abs React Lymphs (Man) 0.0 Monocytes # (Manual) 0.7 Eosinophils # (Manual) 0.1 Basophils # (Manual) 0.0 Metamyelocytes # 0.0 Myelocytes # 0.0 Promyelocytes # 0.0 Blast Cells # 0.0 WBC Morphology Not Reportable Hypersegmented Neuts Not Reportable Hyposegmented Neuts Not Reportable Hypogranular Neuts Not Reportable Smudge Cells Not Reportable Toxic Granulation Not Reportable Toxic Vacuolation Not Reportable Dohle Bodies Not Reportable Pelger-Huet Anomaly Not Reportable Roxanne Rods Not Reportable Platelet Estimate Consistent w auto Clumped Platelets Not Reportable Plt Clumps, EDTA Not Reportable Large Platelets Not Reportable Giant Platelets Not Reportable Platelet Satelliting Not Reportable Plt Morphology Comment Not Reportable RBC Morphology Not Reportable Dimorphic RBCs Not Reportable Polychromasia Few Hypochromasia 1+ Poikilocytosis Not Reportable Anisocytosis 1+ Microcytosis Not Reportable Macrocytosis Not Reportable Spherocytes Not Reportable Pappenheimer Bodies Not Reportable Sickle Cells Not Reportable Target Cells Few Tear Drop Cells Not Reportable Ovalocytes Few Helmet Cells Not Reportable [place] Bodies Not Reportable [place] Rings Not Reportable [place] Cells Not Reportable Bite Cells Not Reportable Crenated Cell Not Reportable Elliptocytes Not Reportable Acanthocytes (Spur) Not Reportable Rouleaux Not Reportable Hemoglobin C Crystals Not Reportable Schistocytes Not Reportable Malaria parasites Not Reportable Hood Bodies Not Reportable Hem Pathologist Commnt No Sodium Potassium Chloride Carbon Dioxide Anion Gap BUN Creatinine Estimated GFR BUN/Creatinine Ratio Glucose POC Glucose 190 H 112 H Calcium Total Bilirubin AST ALT Alkaline Phosphatase Total Protein Albumin Albumin/Globulin Ratio 02/26/19 02/26/19 02/26/19 11:01 11:53 22:15 WBC RBC Hgb Hct MCV MCH MCHC RDW Plt Count Lymph % (Auto) [place] % (Auto) Eos % (Auto) Baso % (Auto) Lymph # [place] # Eos # Baso # Add Manual Diff Total Counted Seg Neutrophils % Seg Neuts % (Manual) Band Neutrophils % Lymphocytes % (Manual) Reactive Lymphs % (Man) Monocytes % (Manual) Eosinophils % (Manual) Basophils % (Manual) Metamyelocytes % Myelocytes % Promyelocytes % Blast Cells % Nucleated RBC % Seg Neutrophils # Seg Neutrophils # Man Band Neutrophils # Lymphocytes # (Manual) Abs React Lymphs (Man) Monocytes # (Manual) Eosinophils # (Manual) Basophils # (Manual) Metamyelocytes # Myelocytes # Promyelocytes # Blast Cells # WBC Morphology Hypersegmented Neuts Hyposegmented Neuts Hypogranular Neuts Smudge Cells Toxic Granulation Toxic Vacuolation Dohle Bodies Pelger-Huet Anomaly Roxanne Rods Platelet Estimate Clumped Platelets Plt Clumps, EDTA Large Platelets Giant Platelets Platelet Satelliting Plt Morphology Comment RBC Morphology Dimorphic RBCs Polychromasia Hypochromasia Poikilocytosis Anisocytosis Microcytosis Macrocytosis Spherocytes Pappenheimer Bodies Sickle Cells Target Cells Tear Drop Cells Ovalocytes Helmet Cells [place] Bodies [place] Rings Erasmo Cells Bite Cells Crenated Cell Elliptocytes Acanthocytes (Spur) Rouleaux Hemoglobin C Crystals Schistocytes Malaria parasites Hood Bodies Hem Pathologist Commnt Sodium 135 L Potassium 4.6 D Chloride 92.1 L Carbon Dioxide 23 Anion Gap 25 BUN 37 H Creatinine 5.0 H Estimated GFR 10 BUN/Creatinine Ratio 7 Glucose 113 H POC Glucose 167 H 335 H Calcium 8.7 Total Bilirubin 0.40 AST 32 ALT 17 Alkaline Phosphatase 382 H Total Protein 5.7 L Albumin 2.6 L Albumin/Globulin Ratio 0.8 02/26/19 02/27/19 23:21 08:31 WBC RBC Hgb Hct MCV MCH MCHC RDW Plt Count Lymph % (Auto) [place] % (Auto) Eos % (Auto) Baso % (Auto) Lymph # [place] # Eos # Baso # Add Manual Diff Total Counted Seg Neutrophils % Seg Neuts % (Manual) Band Neutrophils % Lymphocytes % (Manual) Reactive Lymphs % (Man) Monocytes % (Manual) Eosinophils % (Manual) Basophils % (Manual) Metamyelocytes % Myelocytes % Promyelocytes % Blast Cells % Nucleated RBC % Seg Neutrophils # Seg Neutrophils # Man Band Neutrophils # Lymphocytes # (Manual) Abs React Lymphs (Man) Monocytes # (Manual) Eosinophils # (Manual) Basophils # (Manual) Metamyelocytes # Myelocytes # Promyelocytes # Blast Cells # WBC Morphology Hypersegmented Neuts Hyposegmented Neuts Hypogranular Neuts Smudge Cells Toxic Granulation Toxic Vacuolation Dohle Bodies Pelger-Huet Anomaly Roxanne Rods Platelet Estimate Clumped Platelets Plt Clumps, EDTA Large Platelets Giant Platelets Platelet Satelliting Plt Morphology Comment RBC Morphology Dimorphic RBCs Polychromasia Hypochromasia Poikilocytosis Anisocytosis Microcytosis Macrocytosis Spherocytes Pappenheimer Bodies Sickle Cells Target Cells Tear Drop Cells Ovalocytes Helmet Cells [place] Bodies [place] Rings [place] Cells Bite Cells Crenated Cell Elliptocytes Acanthocytes (Spur) Rouleaux Hemoglobin C Crystals Schistocytes Malaria parasites Hood Bodies Hem Pathologist Commnt Sodium Potassium Chloride Carbon Dioxide Anion Gap BUN Creatinine Estimated GFR BUN/Creatinine Ratio Glucose POC Glucose 326 H 111 H Calcium Total Bilirubin AST ALT Alkaline Phosphatase Total Protein Albumin Albumin/Globulin Ratio Assessment and Plan R BKA: Will likely be a K1 ambulator, K2 may be in reach with continued work. After speaking with daughter, patient will most likely remain K1. Monitor wound. On isolation for MRSA in Blood with 4 weeks vancomycin during dialysis. Continue to work on transfers and mobility. Monitor for phantom sensation/pain. Will discuss possible jail prosthesis. We'll also discuss with in-house infection control to see if we can adapt the rules for therapy to allow the patient to go to the gym. Last blood culture was negative and patient remains on antibiotics with no excessive drainage from the wound. GILBERTO: Cont CPAP HTN: Monitor BP and adjust meds for normotension DM: Carb controlled diet. Monitor glucose. SSI Decreased memory: TATTOO TECHNICIAN to assess cognitive function Hypothyroidism: Continue medication Z73.6 ADL dysfunction: OT will work on improving ability to perform ADLs (including assistive devices) to increase independence and decrease caregiver burden and improve functional transfers and mobility training. R26.2 Difficulty walking: PT will work on gait training and proper use of assistive devices and advance as appropriate to use of stairs and outside ambulation on uneven surfaces. R26.81 Unsteadiness on feet: PT will work on improving static and dynamic sitting and standing balance as well as proper use of assistive devices to decrease risk of falls. R26.89 Abnormality of gait: PT will work to improve safety and efficiency of gait through neuromotor training and gait training along with instruction on proper use of assistive devices. M62.81 Muscle weakness: PT & OT will work on strengthening exercises to improve functional strength including mixture of closed and open kinetic chain exercises. R53.81 Debility: PT & OT will work on improving overall functional status to improve participation with ADLs, mobility and social involvement. R53.83 Fatigue: PT & OT will work on improving endurance through aerobic exe rcises and therapeutic activity while monitoring patients tolerance for activity and vital signs as needed. DVT ppx: heparin Pain: Continue physical modalities in therapy and pain medications as needed to achieve functional pain control. Sleep: Monitor and address as needed. Bowel: Monitor and address as needed. Appetite: Monitor and address as needed. Discharge planning: Pending therapy progress and care plan meeting. Will continue discussion with therapy team, SW, patient and family. Restrictions/ Precautions: Falls WB status: FWB Functional Hx: ADLs: Independent Cognition: Needed assistance Mobility: Cane and w/c for distance Barriers to Discharge: Decreased mobility and ability to perform self care, balance deficits, weakness, cognition Estimated Length of Stay: 14-18 days Discharge Destination: Home with family
--- NOTE | 2019-02-27 15:08 | Consultation ---
History of Present Illness - Reason for Consult Consult date: 02/27/19 Medical management Requesting physician: ZHEN PHAM III - History of Present Illness 78-year-old female with right foot pain present your found to have sepsis. Amputation was previously discussed for the right lower extremity gangrene however family refused. Patient had been undergoing treatment HBOT without resolution. ID was consulted and started antibiotics. Vascular surgery perfor med angiography. Afterwards she was scheduled for a right BKA which proceeded without incident. After the patient was medically stabilized they were transferred for further rehabilitation. Past History Past Medical History: diabetes, dialysis, ESRD, GERD, heart failure, hypertension, hypothyroidism, other (legally blind, GILBERTO) Past Surgical History: cholecystectomy Social history: single, lives with family, full code. denies: smoking, alcohol abuse Family history: diabetes, hypertension Medications and Allergies Allergies Allergy/AdvReac Type Severity Reaction Status Date / Time Iodinated Contrast- Oral and Allergy Hives, Rash Verified 11/25/18 15:48 IV Dye Penicillins Allergy Hives Verified 11/25/18 15:48 Home Medications Medication Instructions Recorded Confirmed Last Taken Type B Complex 11/Folic/C/Biot/Zinc 1 each PO DAILY 09/06/15 02/25/19 11/25/18 20:00 History [Dialyvite with Zinc Tablet] Lispro Insulin [HumaLOG] 7 unit SQ AC 11/25/18 02/25/19 Unknown History Pantoprazole Sodium 40 mg PO DAILY 11/25/18 02/25/19 11/26/18 05:00 History amLODIPine [Norvasc] 5 mg PO DAILY 11/25/18 02/25/19 11/28/18 History 2.5 Ranitidine HCl [Zantac] 300 mg PO BID 02/16/19 02/25/19 Unknown History Calcium Acetate 667 mg PO AC 02/18/19 02/25/19 Unknown History Levothyroxine 0.05 mg PO QDAY 02/18/19 02/25/19 Unknown History Lyrica 75 mg PO HS 02/18/19 02/25/19 Unknown History Pravastatin 40 mg PO HS 02/18/19 02/25/19 Unknown History Zetia 10 mg PO HS 02/18/19 02/25/19 Unknown History Aspirin EC 81 mg PO QDAY #30 tablet 02/25/19 02/25/19 Unknown Rx Clopidogrel [Plavix] 75 mg PO QDAY #30 tablet 02/25/19 02/25/19 Unknown Rx oxyCODONE /ACETAMINOPHEN [Percocet 1 tab PO Q6H PRN #14 tablet 02/25/19 02/25/19 Unknown Rx 5/325 mg] Active Meds: Active Medications Albuterol (Proventil) 2.5 mg IH Q4HRT PRN PRN Reason: Shortness Of Breath Amlodipine Besylate (Norvasc) 5 mg PO QDAY [facility] Last Admin: 02/26/19 19:17 Dose: Not Given Documented by: Aspirin (Halfprin Ec) 81 mg PO QDAY [facility] Last Admin: 02/27/19 11:31 Dose: 81 mg Documented by: Calcium Acetate (Phoslo) 667 mg PO AC [facility] Last Admin: 02/27/19 08:00 Dose: Not Given Documented by: Clopidogrel Bisulfate (Plavix) 75 mg PO QDAY [facility] Last Admin: 02/27/19 11:30 Dose: 75 mg Documented by: Dextrose (D50w (25gm) Syringe) 50 ml IV PRN PRN PRN Reason: Hypoglycemia Diphenhydramine HCl (Benadryl) 25 mg PO Q6H PRN PRN Reason: Itching Ezetimibe (Zetia) 10 mg PO HS [facility] Last Admin: 02/26/19 21:56 Dose: 10 mg Documented by: Epoetin [place] (Procrit) 10,000 unit IV ANNI [facility] Last Admin: 02/26/19 17:58 Dose: 10,000 unit Documented by: Famotidine (Pepcid) 10 mg PO BID [facility] Last Admin: 02/27/19 11:30 Dose: 10 mg Documented by: Heparin Sodium (Porcine) (Heparin) 5,000 unit SUB-Q Q8HR [facility] Last Admin: 02/27/19 07:01 Dose: 5,000 unit Documented by: Vancomycin HCl (Vancomycin/Ns 1 Gm/250 Ml) 1 gm in 250 mls @ 166.667 mls/hr IV TuThSa@1800 [facility] Stop: 03/24/19 19:29 Last Admin: 02/26/19 21:56 Dose: 166.667 mls/hr Documented by: Sodium Chloride (Nacl 0.9%) 100 mls @ 999 mls/hr IV ANNI PRN PRN Reason: Hypotension Insulin Human Lispro (Humalog) 0 unit SUB-Q QHS [facility]; Protocol Last Admin: 02/26/19 23:26 Dose: 4 unit Documented by: Levothyroxine Sodium (Synthroid) 50 mcg PO DAILY@0600 [facility] Last Admin: 02/27/19 07:01 Dose: 50 mcg Documented by: Multivit/Ca Carb/B Cmplx/FA/Prenat (Renal Caps) 1 cap PO QDAY [facility] Last Admin: 02/27/19 11:30 Dose: 1 cap Documented by: Oxycodone/Acetaminophen (Percocet 5/325) 1 tab PO Q6H PRN PRN Reason: Pain, Moderate (4-6) Last Admin: 02/27/19 11:31 Dose: 1 tab Documented by: Pravastatin Sodium (Pravachol) 40 mg PO QHS [facility] Last Admin: 02/26/19 21:54 Dose: 40 mg Documented by: Pregabalin (Lyrica) 75 mg PO [facility] Last Admin: 02/26/19 21:54 Dose: 75 mg Documented by: Sodium Polystyrene Sulfonate (Kionex) 15 gm PO Q6HR PRN PRN Reason: Hyperkalemia Review of Systems All systems: negative Musculoskeletal: other (Rt BKA) Integumentary: other (Rt BKA) Exam - Constitutional Vitals: Temp Pulse Resp BP Pulse Ox 99.2 F 68 18 128/47 100 02/27/19 08:24 02/27/19 08:24 02/27/19 08:24 02/27/19 08:24 02/27/19 08:24 General appearance: Present: no acute distress, well-nourished - EENT Eyes: Present: PERRL ENT: hearing intact, clear oral mucosa - Neck Neck: Present: supple, normal ROM - Respiratory Respiratory effort: normal Respiratory: bilateral: CTA - Cardiovascular Heart Sounds: Present: S1 & S2. Absent: rub, click - Extremities Extremities: pulses symmetrical, No edema Extremity abnormal: other (Rt BKA) Peripheral Pulses: within normal limits - Abdominal General gastrointestinal: Present: soft, non-tender, non-distended, normal bowel sounds Female genitourinary: Present: normal - Integumentary Integumentary: Present: clear, warm, dry - Musculoskeletal Musculoskeletal: gait normal, strength equal bilaterally - Psychiatric Psychiatric: appropriate mood/affect, intact judgment & insight - Neurologic Neurologic: CNII-XII intact, moves all extremities Results - Labs CBC & Chem 7: 02/26/19 11:01 02/26/19 11:01 Labs: Abnormal lab results 02/26/19 02/26/19 02/27/19 Range/Units 22:15 23:21 08:31 POC Glucose 335 H 326 H 111 H (70-105) Assessment and Plan - Patient Problems (1) Status post below knee amputation of right lower extremity Current Visit: Yes Status: Acute Plan to address problem: For Rehab Amputation sec to Gangrene of foot (2) GILBERTO on CPAP Current Visit: No Status: Chronic Plan to address problem: CPAP ordered (3) End stage renal disease on dialysis Current Visit: No Status: Acute (4) GERD (gastroesophageal reflux disease) Current Visit: No Status: Chronic Qualifiers: Esophagitis presence: without esophagitis Qualified Code(s): K21.9 - Gastro-esophageal reflux disease without esophagitis Plan to address problem: On Famotidine (5) Gangrene of toe of right foot Current Visit: No Status: Acute Plan to address problem: S/p R BKA Rehab (6) HTN (hypertension) Current Visit: No Status: Chronic Plan to address problem: Cont antihypertensives (7) History of CVA (cerebrovascular accident) Current Visit: No Status: Chronic Plan to address problem: on plavix (8) Hyperlipidemia Current Visit: No Status: Chronic Plan to address problem: Cont zetia (9) Hypothyroid Current Visit: No Status: Chronic Qualifiers: Hypothyroidism type: acquired Qualified Code(s): E03.9 - Hypothyroidism, unspecified Plan to address problem: COnt synthyroid (10) DVT prophylaxis Current Visit: No Status: Acute Plan to address problem: On Heparin
[2019-02-27] MEDS: NORVASC PO SCH (18:15)
[2019-02-27] MEDS: BENADRYL PO PRN (18:16)
[2019-02-27] MEDS: LYRICA PO SCH (22:02)
[2019-02-27] MEDS: ZETIA PO SCH (22:03)
[2019-02-27] MEDS: PRAVACHOL PO SCH (22:03)
[2019-02-27] MEDS: HumaLOG SUB-Q SCH (22:08)
[2019-02-28] MEDS: HEPARIN SUB-Q SCH ×3 (05:44→22:02)
[2019-02-28] MEDS: SYNTHROID PO SCH (05:44)
[2019-02-28] MEDS: PERCOCET 5/325 PO PRN (06:40)
[2019-02-28 08:17] LABS: Calcium 8.4 mg/dL (8.4-10.2)
--- NOTE | 2019-02-28 08:55 | Progress Note ---
Subjective Date of service: 02/28/19 Principal diagnosis: R BKA Interval history: 78-year-old female with right foot pain present your found to have sepsis. Amputation was previously discussed for the right lower extremity gangrene however family refused. Patient had been undergoing treatment HBOT without resolution. ID was consulted and started antibiotics. Vascular surgery performed angiography. Afterwards she was scheduled for a right BKA which proceeded without incident. After the patient was medically stabilized they were transferred for further rehabilitation. All available medical records have been reviewed but there are limited records from the [facility]. Plan of care was discussed with patient and family. Patient is participating in therapy and making reasonable progress. Taking rest breaks as needed. +BM. Denies pain, palpitations, dyspnea, cough, N/V, or joint pain. She does note that she has some phantom sensation but no overt phantom pain. No issues today. Dialysis later today. Continue therapy as planned. All records, vitals, labs and medications were reviewed. No other issues per patient, nursing or therapy. Objective - Exam Narrative Exam: MUSCULOSKELETAL SPECIALTY EXAM CONSTITUTIONAL: Well developed, well nourished, appropriately groomed EENT: Legally blind. Oropharynx clear. Hearing mostly intact to normal voice RESPIRATORY: Clear to auscultation bilaterally, no increased work of breathing. Supplemental O2 CARDIOVASCULAR: Regular Rate/ Rhythm, no swelling, edema or tenderness in BUE or BLE. Pulses palpable in all extremities. All extremities warm. Thrill in LUE GI: + bowel sounds, soft, NTTP, nondistended. INTEGUMENTARY: Normal, no lesion, rash, masses or bruising noted in extremities. Surgical wound on right lower extremity MUSCULOSKELETAL: Right BKA, otherwise BUE and BLE normal without defect, crepitus, subluxation, effusion, arthritic changes or TTP. BUE 4/5, good ROM, with normal tone. LLE 4-/5 good ROM, with normal tone, RLE decreased ROM secondary to pain NEURO: CN 2-12 grossly intact. Sensation intact in all extremities. No tremor noted in 4 extremities. POSTURE and GAIT: Sitting posture good. Balance appears reasonable. Gait deferred until seen with therapy. PSYCH: Alert, orientated x2, slightly confused at times and decreased memory, affect appears normal. - Constitutional Vitals: Vital Signs - 12hr 02/27/19 02/27/19 02/27/19 22:00 23:21 23:58 Temperature 35.9 C L 35.9 C L Pulse Rate 69 Respiratory 18 20 18 Rate Blood Pressure 118/56 Blood Pressure 131/64 [Right] O2 Sat by Pulse 99 85 Oximetry 02/28/19 02/28/19 02/28/19 00:21 04:53 05:04 Temperature 36.3 C L 36.3 C L Pulse Rate 61 60 Respiratory 18 17 Rate Blood Pressure 108/62 Blood Pressure 108/62 [Right] O2 Sat by Pulse 100 Oximetry 02/28/19 08:13 Temperature 36.3 C L Pulse Rate 63 Respiratory 18 Rate Blood Pressure 123/52 Blood Pressure [Right] O2 Sat by Pulse 98 Oximetry - Allied health notes Allied health notes reviewed: nursing, PT, OT FIMS assessment as documented by PT/OT/ST: Grooming Patient cleans teeth/dentures: Yes Patient holguin/brushes hair: Yes Patient washes, rinses and Yes dries face: Patient washes, rinses and Yes dries hands: Patient shaves: No Patient applies make-up: No Patient performs (no make-up/ / (100%) shaving): Grooming FIM Score 4. Minimal Assistance (Patient = 75% or more. Needs touching.) Toileting Toileting Device Bedpan Toileting FIM Score 2. Maximal Assistance (Patient = 25% or more) Social interaction/Memory/Problem solving Social Interaction FIM Score 4. Minimal Assistance (Interacts appropriately 75-90%.) Memory FIM Score 4. Minimal Assistance (Recognizes and remembers 75-90%.) Problem Solving FIM Score 4. Minimal Assistance (Solves routine problems 75-90%.) Transfers Mode of Locomotion: Wheelchair Bed/Chair/Wheelchair Transfers 3. Moderate Assistance (Patient = 50% or more. FIM Score Some lifting.) Toilet Transfers FIM Score 1. Total Assistance (Patient less than 25%. 2 or more persons.) Patient transferred to: Shower Shower Transfers FIM Score 1. Total Assistance (Patient less than 25%. 2 or more persons.) Locomotion- Stairs Stairs FIM Score 0. Activity does not occur Locomotion- walk/wheelchair Most Frequent Mode of Wheelchair Locomotion: Walking FIM Score 0. Activity does not occur Wheelchair Propulsion Distance 100 Wheelchair FIM Score 2. Maximal Assistance (Patient = 25% or more. Minimum of 50 ft.) Eating Eating FIM Score 5. Supervision/Set-Up (Needs help w/ containers, cutting meat, etc.) Dressing-Upper body Patient retrieves clothing No items: Patient applies/removes UE No: n/a prosthesis or orthosis: Upper Body Dressing FIM Score 4. Minimal Assistance (Patient = 75% or more. Needs touching.) Dressing-lower body Patient retrieves clothing No items: Patient applies/removes LE No: n/a prosthesis or orthosis: Lower Body Dressing FIM Score 2. Maximal Assistance (Patient = 25% or more) - Labs CBC & Chem 7: 02/28/19 07:27 02/28/19 07:27 Labs: Laboratory Results - last 72 hr 02/25/19 02/26/19 02/26/19 22:08 08:24 11:01 WBC 7.4 RBC 3.91 Hgb 9.4 L Hct 30.6 MCV 78 L MCH 24 L MCHC 31 RDW 22.4 H Plt Count 380 Lymph % (Auto) Community Fundraiser Walker % (Auto) Community Fundraiser Eos % (Auto) Community Fundraiser Baso % (Auto) Community Fundraiser Lymph # Community Fundraiser Walker # Community Fundraiser Eos # Community Fundraiser Baso # Community Fundraiser Add Manual Diff Complete Total Counted 100 Seg Neutrophils % Community Fundraiser Seg Neuts % (Manual) 86.0 H Band Neutrophils % 0 Lymphocytes % (Manual) 4.0 L Reactive Lymphs % (Man) 0 Monocytes % (Manual) 9.0 H Eosinophils % (Manual) 1.0 Basophils % (Manual) 0 Metamyelocytes % 0 Myelocytes % 0 Promyelocytes % 0 Blast Cells % 0 Nucleated RBC % Not Reportable Seg Neutrophils # Community Fundraiser Seg Neutrophils # Man 6.4 Band Neutrophils # 0.0 Lymphocytes # (Manual) 0.3 L Abs React Lymphs (Man) 0.0 Monocytes # (Manual) 0.7 Eosinophils # (Manual) 0.1 Basophils # (Manual) 0.0 Metamyelocytes # 0.0 Myelocytes # 0.0 Promyelocytes # 0.0 Blast Cells # 0.0 WBC Morphology Not Reportable Hypersegmented Neuts Not Reportable Hyposegmented Neuts Not Reportable Hypogranular Neuts Not Reportable Smudge Cells Not Reportable Toxic Granulation Not Reportable Toxic Vacuolation Not Reportable Dohle Bodies Not Reportable Pelger-Huet Anomaly Not Reportable Roxanne Rods Not Reportable Platelet Estimate Consistent w auto Clumped Platelets Not Reportable Plt Clumps, EDTA Not Reportable Large Platelets Not Reportable Giant Platelets Not Reportable Platelet Satelliting Not Reportable Plt Morphology Comment Not Reportable RBC Morphology Not Reportable Dimorphic RBCs Not Reportable Polychromasia Few Hypochromasia 1+ Poikilocytosis Not Reportable Anisocytosis 1+ Microcytosis Not Reportable Macrocytosis Not Reportable Spherocytes Not Reportable Pappenheimer Bodies Not Reportable Sickle Cells Not Reportable Target Cells Few Tear Drop Cells Not Reportable Ovalocytes Few Helmet Cells Not Reportable [place] Bodies Not Reportable [place] Rings Not Reportable Erasmo Cells Not Reportable Bite Cells Not Reportable Crenated Cell Not Reportable Elliptocytes Not Reportable Acanthocytes (Spur) Not Reportable Rouleaux Not Reportable Hemoglobin C Crystals Not Reportable Schistocytes Not Reportable Malaria parasites Not Reportable Hood Bodies Not Reportable Hem Pathologist Commnt No Sodium Potassium Chloride Carbon Dioxide Anion Gap BUN Creatinine Estimated GFR BUN/Creatinine Ratio Glucose POC Glucose 190 H 112 H Calcium Total Bilirubin AST ALT Alkaline Phosphatase Total Protein Albumin Albumin/Globulin Ratio 02/26/19 02/26/19 02/26/19 11:01 11:53 22:15 WBC RBC Hgb Hct MCV MCH MCHC RDW Plt Count Lymph % (Auto) Walker % (Auto) Eos % (Auto) Baso % (Auto) Lymph # Walker # Eos # Baso # Add Manual Diff Total Counted Seg Neutrophils % Seg Neuts % (Manual) Band Neutrophils % Lymphocytes % (Manual) Reactive Lymphs % (Man) Monocytes % (Manual) Eosinophils % (Manual) Basophils % (Manual) Metamyelocytes % Myelocytes % Promyelocytes % Blast Cells % Nucleated RBC % Seg Neutrophils # Seg Neutrophils # Man Band Neutrophils # Lymphocytes # (Manual) Abs React Lymphs (Man) Monocytes # (Manual) Eosinophils # (Manual) Basophils # (Manual) Metamyelocytes # Myelocytes # Promyelocytes # Blast Cells # WBC Morphology Hypersegmented Neuts Hyposegmented Neuts Hypogranular Neuts Smudge Cells Toxic Granulation Toxic Vacuolation Dohle Bodies Pelger-Huet Anomaly Roxanne Rods Platelet Estimate Clumped Platelets Plt Clumps, EDTA Large Platelets Giant Platelets Platelet Satelliting Plt Morphology Comment RBC Morphology Dimorphic RBCs Polychromasia Hypochromasia Poikilocytosis Anisocytosis Microcytosis Macrocytosis Spherocytes Pappenheimer Bodies Sickle Cells Target Cells Tear Drop Cells Ovalocytes Helmet Cells [place] Bodies [place] Rings Erasmo Cells Bite Cells Crenated Cell Elliptocytes Acanthocytes (Spur) Rouleaux Hemoglobin C Crystals Schistocytes Malaria parasites Hood Bodies Hem Pathologist Commnt Sodium 135 L Potassium 4.6 D Chloride 92.1 L Carbon Dioxide 23 Anion Gap 25 BUN 37 H Creatinine 5.0 H Estimated GFR 10 BUN/Creatinine Ratio 7 Glucose 113 H POC Glucose 167 H 335 H Calcium 8.7 Total Bilirubin 0.40 AST 32 ALT 17 Alkaline Phosphatase 382 H Total Protein 5.7 L Albumin 2.6 L Albumin/Globulin Ratio 0.8 02/26/19 02/27/19 02/27/19 23:21 08:31 17:45 WBC RBC Hgb Hct MCV MCH MCHC RDW Plt Count Lymph % (Auto) Walker % (Auto) Eos % (Auto) Baso % (Auto) Lymph # Walker # Eos # Baso # Add Manual Diff Total Counted Seg Neutrophils % Seg Neuts % (Manual) Band Neutrophils % Lymphocytes % (Manual) Reactive Lymphs % (Man) Monocytes % (Manual) Eosinophils % (Manual) Basophils % (Manual) Metamyelocytes % Myelocytes % Promyelocytes % Blast Cells % Nucleated RBC % Seg Neutrophils # Seg Neutrophils # Man Band Neutrophils # Lymphocytes # (Manual) Abs React Lymphs (Man) Monocytes # (Manual) Eosinophils # (Manual) Basophils # (Manual) Metamyelocytes # Myelocytes # Promyelocytes # Blast Cells # WBC Morphology Hypersegmented Neuts Hyposegmented Neuts Hypogranular Neuts Smudge Cells Toxic Granulation Toxic Vacuolation Dohle Bodies Pelger-Huet Anomaly Roxanne Rods Platelet Estimate Clumped Platelets Plt Clumps, EDTA Large Platelets Giant Platelets Platelet Satelliting Plt Morphology Comment RBC Morphology Dimorphic RBCs Polychromasia Hypochromasia Poikilocytosis Anisocytosis Microcytosis Macrocytosis Spherocytes Pappenheimer Bodies Sickle Cells Target Cells Tear Drop Cells Ovalocytes Helmet Cells [place] Bodies [place] Rings Erasmo Cells Bite Cells Crenated Cell Elliptocytes Acanthocytes (Spur) Rouleaux Hemoglobin C Crystals Schistocytes Malaria parasites Hood Bodies Hem Pathologist Commnt Sodium Potassium Chloride Carbon Dioxide Anion Gap BUN Creatinine Estimated GFR BUN/Creatinine Ratio Glucose POC Glucose 326 H 111 H 348 H Calcium Total Bilirubin AST ALT Alkaline Phosphatase Total Protein Albumin Albumin/Globulin Ratio 02/27/19 02/28/19 22:09 07:27 WBC RBC Hgb Hct MCV MCH MCHC RDW Plt Count Lymph % (Auto) Walker % (Auto) Eos % (Auto) Baso % (Auto) Lymph # Walker # Eos # Baso # Add Manual Diff Total Counted Seg Neutrophils % Seg Neuts % (Manual) Band Neutrophils % Lymphocytes % (Manual) Reactive Lymphs % (Man) Monocytes % (Manual) Eosinophils % (Manual) Basophils % (Manual) Metamyelocytes % Myelocytes % Promyelocytes % Blast Cells % Nucleated RBC % Seg Neutrophils # Seg Neutrophils # Man Band Neutrophils # Lymphocytes # (Manual) Abs React Lymphs (Man) Monocytes # (Manual) Eosinophils # (Manual) Basophils # (Manual) Metamyelocytes # Myelocytes # Promyelocytes # Blast Cells # WBC Morphology Hypersegmented Neuts Hyposegmented Neuts Hypogranular Neuts Smudge Cells Toxic Granulation Toxic Vacuolation Dohle Bodies Pelger-Huet Anomaly Roxanne Rods Platelet Estimate Clumped Platelets Plt Clumps, EDTA Large Platelets Giant Platelets Platelet Satelliting Plt Morphology Comment RBC Morphology Dimorphic RBCs Polychromasia Hypochromasia Poikilocytosis Anisocytosis Microcytosis Macrocytosis Spherocytes Pappenheimer Bodies Sickle Cells Target Cells Tear Drop Cells Ovalocytes Helmet Cells [place] Bodies [place] Rings Erasmo Cells Bite Cells Crenated Cell Elliptocytes Acanthocytes (Spur) Rouleaux Hemoglobin C Crystals Schistocytes Malaria parasites Hood Bodies Hem Pathologist Commnt Sodium 134 L Potassium 4.0 Chloride 93.4 L Carbon Dioxide 28 Anion Gap 17 BUN 33 H Creatinine 4.9 H Estimated GFR 10 BUN/Creatinine Ratio 7 Glucose 98 POC Glucose 402 H Calcium 8.4 Total Bilirubin AST ALT Alkaline Phosphatase Total Protein Albumin Albumin/Globulin Ratio Assessment and Plan R BKA: Will likely be a K1 ambulator, K2 may be in reach with continued work. A fter speaking with daughter, patient will most likely remain K1. Monitor wound. On isolation for MRSA in Blood with 4 weeks vancomycin during dialysis. Continue to work on transfers and mobility. Monitor for phantom sensation/pain. Will discuss possible correction prosthesis. We'll also discuss with in-house infection control to see if we can adapt the rules for therapy to allow the patient to go to the gym. Last blood culture was negative and patient remains on antibiotics with no excessive drainage from the wound. GILBERTO: Cont CPAP HTN: Monitor BP and adjust meds for normotension DM: Carb controlled diet. Monitor glucose. SSI Decreased memory: ADMITTING OFFICER to assess cognitive function Hypothyroidism: Continue medication Z73.6 ADL dysfunction: OT will work on improving ability to perform ADLs (including assistive devices) to increase independence and decrease caregiver burden and improve functional transfers and mobility training. R26.2 Difficulty walking: PT will work on gait training and proper use of assistive devices and advance as appropriate to use of stairs and outside ambulation on uneven surfaces. R26.81 Unsteadiness on feet: PT will work on improving static and dynamic sitt ing and standing balance as well as proper use of assistive devices to decrease risk of falls. R26.89 Abnormality of gait: PT will work to improve safety and efficiency of gait through neuromotor training and gait training along with instruction on proper use of assistive devices. M62.81 Muscle weakness: PT & OT will work on strengthening exercises to improve functional strength including mixture of closed and open kinetic chain exercises. R53.81 Debility: PT & OT will work on improving overall functional status to improve participation with ADLs, mobility and social involvement. R53.83 Fatigue: PT & OT will work on improving endurance through aerobic exercises and therapeutic activity while monitoring patients tolerance for activity and vital signs as needed. DVT ppx: heparin Pain: Continue physical modalities in therapy and pain medications as needed to achieve functional pain control. Sleep: Monitor and address as needed. Bowel: Monitor and address as needed. Appetite: Monitor and address as needed. Discharge planning: Pending therapy progress and care plan meeting. Will continue discussion with therapy team, SW, patient and family. Restrictions/ Precautions: Falls WB status: FWB Functional Hx: ADLs: Independent Cognition: Needed assistance Mobility: Cane and w/c for distance Barriers to Discharge: Decreased mobility and ability to perform self care, balance deficits, weakness, cognition Estimated Length of Stay: 14-18 days Discharge Destination: Home with family
[2019-02-28 08:59] LABS: Hematocrit 25.8 % (30.3-42.9); Mean Corpuscular HGB Conc 31 % (30-34); Mean Corpuscular Volume 78 fl (79-97); Platelet Count 494 K/mm3 (140-440); Red Blood Count 3.32 M/mm3 (3.65-5.03)
[2019-02-28] MEDS: Renal Caps PO SCH (09:02)
[2019-02-28] MEDS: HALFPRIN EC PO SCH (09:02)
[2019-02-28] MEDS: PLAVIX PO SCH (09:03)
[2019-02-28] MEDS: PHOSLO PO SCH ×3 (09:03→16:26)
[2019-02-28] MEDS: PEPCID PO SCH ×2 (09:03→21:59)
[2019-02-28 09:05] LABS: Red Cell Distribution Width 22.3 % (13.2-15.2)
--- NOTE | 2019-02-28 09:34 | Progress Note ---
Assessment and Plan Assessment and plan: 78-year-old female with right foot pain present your found to have sepsis. Amputation was previously discussed for the right lower extremity gangrene however family refused. Patient had been undergoing treatment HBOT without resolution. ID was consulted and started antibiotics. Vascular surgery perfo rmed angiography. Afterwards she was scheduled for a right BKA which proceeded without incident. After the patient was medically stabilized they were transferred for further rehabilitation. (1) Status post below knee amputation of right lower extremity SECONDARY TO SEVERE PAD Current Visit: Yes Status: Acute Plan to address problem: For Rehab Amputation sec to Gangrene of foot (2) GILBERTO on CPAP Current Visit: No Status: Chronic Plan to address problem: CPAP ordered (3) End stage renal disease on dialysis Current Visit: No Status: Acute ON HD TTS (4) GERD (gastroesophageal reflux disease) Current Visit: No Status: Chronic Qualifiers: Esophagitis presence: without esophagitis Qualified Code(s): K21.9 - G janusz-esophageal reflux disease without esophagitis Plan to address problem: On Famotidine (5) Gangrene of toe of right foot Current Visit: No Status: Acute Plan to address problem: S/p R BKA Rehab (6) HTN (hypertension) Current Visit: No Status: Chronic Plan to address problem: Cont antihypertensives (7) History of CVA (cerebrovascular accident) Current Visit: No Status: Chronic Plan to address problem: on plavix (8) Hyperlipidemia Current Visit: No Status: Chronic Plan to address problem: Cont zetia (9) Hypothyroid Current Visit: No Status: Chronic Qualifiers: Hypothyroidism type: acquired Qualified Code(s): E03.9 - Hypothyroidism, unspecified Plan to address problem: COnt synthyroid (10) DM TYPE 2 restart insulin (11) 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 Epogen with HD. (12)DVT prophylaxis Current Visit: No Status: Acute Plan to address problem: On Heparin History Interval history: Patient seen and examined, resting comforotable. some abdominal pain 2/10, improves with belching. Hospitalist Physical - Physical exam Narrative exam: General appearance: Present: no acute distress, well-nourished, obese - EENT Eyes: Present: PERRL ENT: hearing intact, clear oral mucosa - Neck Neck: Present: supple, normal ROM - Respiratory Respiratory effort: normal Respiratory: bilateral: CTA - Cardiovascular Heart Sounds: Present: S1 & S2. Absent: rub, click - Extremities Extremities: pulses symmetrical, No edema Extremity abnormal: other (Rt BKA) Peripheral Pulses: within normal limits - Abdominal General gastrointestinal: Present: soft, non-tender, non-distended, normal bowel sounds Female genitourinary: Present: normal - Integumentary Integumentary: Present: clear, warm, dry - Musculoskeletal Musculoskeletal: gait normal, strength equal bilaterally - Psychiatric Psychiatric: appropriate mood/affect, intact judgment & insight - Neurologic Neurologic: CNII-XII intact, moves all extremities - Constitutional Vitals: Temp Pulse Resp BP Pulse Ox 97.4 F L 63 18 123/52 98 02/28/19 08:13 02/28/19 08:13 02/28/19 08:13 02/28/19 08:13 02/28/19 08:13 General appearance: Present: no acute distress, well-nourished Results - Labs CBC & Chem 7: 02/28/19 07:27 02/28/19 07:27 Labs: Laboratory Last Values WBC 6.3 K/mm3 (4.5-11.0) 02/28/19 07:27 RBC 3.32 M/mm3 (3.65-5.03) L 02/28/19 07:27 Hgb 8.0 gm/dl (10.1-14.3) L 02/28/19 07:27 Hct 25.8 % (30.3-42.9) L 02/28/19 07:27 MCV 78 fl (79-97) L 02/28/19 07:27 MCH 24 pg (28-32) L 02/28/19 07:27 MCHC 31 % (30-34) 02/28/19 07:27 RDW 22.3 % (13.2-15.2) H 02/28/19 07:27 Plt Count 494 K/mm3 (140-440) H 02/28/19 07:27 Lymph % (Auto) Product Development Manager 02/26/19 11:01 Crowley % (Auto) Product Development Manager 02/26/19 11:01 Eos % (Auto) Product Development Manager 02/26/19 11:01 Baso % (Auto) Product Development Manager 02/26/19 11:01 Lymph # Product Development Manager 02/26/19 11:01 Crowley # Product Development Manager 02/26/19 11:01 Eos # Product Development Manager 02/26/19 11:01 Baso # Product Development Manager 02/26/19 11:01 Add Manual Diff Complete 02/26/19 11:01 Total Counted 100 02/26/19 11:01 Seg Neutrophils % Product Development Manager 02/26/19 11:01 Seg Neuts % (Manual) 86.0 % (40.0-70.0) H 02/26/19 11:01 0 % 02/26/19 11:01 4.0 % (13.4-35.0) L 02/26/19 11:01 Reactive Lymphs % (Man) 0 % 02/26/19 11:01 9.0 % (0.0-7.3) H 02/26/19 11:01 1.0 % (0.0-4.3) 02/26/19 11:01 0 % (0.0-1.8) 02/26/19 11:01 0 % 02/26/19 11:01 0 % 02/26/19 11:01 0 % 02/26/19 11:01 0 % 02/26/19 11:01 Nucleated RBC % Not Reportable 02/26/19 11:01 Seg Neutrophils # Product Development Manager 02/26/19 11:01 Seg Neutrophils # Man 6.4 K/mm3 (1.8-7.7) 02/26/19 11:01 Band Neutrophils # 0.0 K/mm3 02/26/19 11:01 0.3 K/mm3 (1.2-5.4) L 02/26/19 11:01 Abs React Lymphs (Man) 0.0 K/mm3 02/26/19 11:01 0.7 K/mm3 (0.0-0.8) 02/26/19 11:01 0.1 K/mm3 (0.0-0.4) 02/26/19 11:01 0.0 K/mm3 (0.0-0.1) 02/26/19 11:01 0.0 K/mm3 02/26/19 11:01 0.0 K/mm3 02/26/19 11:01 0.0 K/mm3 02/26/19 11:01 Blast Cells # 0.0 K/mm3 02/26/19 11:01 WBC Morphology Not Reportable 02/26/19 11:01 Hypersegmented Neuts Not Reportable 02/26/19 11:01 Hyposegmented Neuts Not Reportable 02/26/19 11:01 Hypogranular Neuts Not Reportable 02/26/19 11:01 Not Reportable 02/26/19 11:01 Not Reportable 02/26/19 11:01 Not Reportable 02/26/19 11:01 Not Reportable 02/26/19 11:01 Not Reportable 02/26/19 11:01 Not Reportable 02/26/19 11:01 Consistent w auto 02/26/19 11:01 Not Reportable 02/26/19 11:01 Plt Clumps, EDTA Not Reportable 02/26/19 11:01 Not Reportable 02/26/19 11:01 Not Reportable 02/26/19 11:01 Not Reportable 02/26/19 11:01 Plt Morphology Comment Not Reportable 02/26/19 11:01 RBC Morphology Not Reportable 02/26/19 11:01 Dimorphic RBCs Not Reportable 02/26/19 11:01 Few 02/26/19 11:01 1+ 02/26/19 11:01 Not Reportable 02/26/19 11:01 1+ 02/26/19 11:01 Not Reportable 02/26/19 11:01 Not Reportable 02/26/19 11:01 Not Reportable 02/26/19 11:01 Not Reportable 02/26/19 11:01 Not Reportable 02/26/19 11:01 Few 02/26/19 11:01 Not Reportable 02/26/19 11:01 Few 02/26/19 11:01 Not Reportable 02/26/19 11:01 Not Reportable 02/26/19 11:01 Not Reportable 02/26/19 11:01 Not Reportable 02/26/19 11:01 Not Reportable 02/26/19 11:01 Not Reportable 02/26/19 11:01 Not Reportable 02/26/19 11:01 Acanthocytes (Spur) Not Reportable 02/26/19 11:01 Rouleaux Not Reportable 02/26/19 11:01 Not Reportable 02/26/19 11:01 Not Reportable 02/26/19 11:01 Not Reportable 02/26/19 11:01 Not Reportable 02/26/19 11:01 Hem Pathologist Commnt No 02/26/19 11:01 Sodium 134 mmol/L (137-145) L 02/28/19 07:27 Potassium 4.0 mmol/L (3.6-5.0) 02/28/19 07:27 Chloride 93.4 mmol/L (98-107) L 02/28/19 07:27 Carbon Dioxide 28 mmol/L (22-30) 02/28/19 07:27 17 mmol/L 02/28/19 07:27 BUN 33 mg/dL (7-17) H 02/28/19 07:27 4.9 mg/dL (0.7-1.2) H 02/28/19 07:27 Estimated GFR 10 ml/min 02/28/19 07:27 7 % 02/28/19 07:27 Glucose 98 mg/dL (65-100) 02/28/19 07:27 POC Glucose 101 (70-105) 02/28/19 09:03 Calcium 8.4 mg/dL (8.4-10.2) 02/28/19 07:27 0.40 mg/dL (0.1-1.2) 02/26/19 11:01 AST 32 units/L (5-40) 02/26/19 11:01 ALT 17 units/L (7-56) 02/26/19 11:01 382 units/L (35-129) H 02/26/19 11:01 5.7 g/dL (6.3-8.2) L 02/26/19 11:01 2.6 g/dL (3.9-5) L 02/26/19 11:01 0.8 % 02/26/19 11:01 Active Medications - Current Medications Current Medications: Generic Name Dose Route Start Last Admin Trade Name Freq PRN Reason Stop Dose Admin Albuterol 2.5 mg 02/25/19 18:39 Proventil IH Q4HRT PRN Shortness Of Breath Amlodipine Besylate 5 mg 02/26/19 08:00 02/27/19 18:15 Norvasc PO 5 mg QDAY JUAQUIN Administration Aspirin 81 mg 02/26/19 08:00 02/28/19 09:02 Halfprin Ec PO 81 mg QDAY JUAQUIN Administration Calcium Acetate 667 mg 02/26/19 07:30 02/28/19 09:03 Phoslo PO 667 mg AC JUAQUIN Administration Clopidogrel Bisulfate 75 mg 02/26/19 08:00 02/28/19 09:03 Plavix PO 75 mg QDAY JUAQUIN Administration Dextrose 50 ml 02/25/19 18:31 D50w (25gm) Syringe IV PRN PRN Hypoglycemia Diphenhydramine HCl 25 mg 02/25/19 18:39 02/27/19 18:16 Benadryl PO 25 mg Q6H PRN Administration Itching Ezetimibe 10 mg 02/25/19 22:00 02/27/19 22:03 Zetia PO 10 mg HS JUAQUIN Administration Epoetin Quincy 10,000 unit 02/26/19 13:00 02/26/19 17:58 Procrit IV 10,000 unit ANNI JUAQUIN Administration Famotidine 10 mg 02/25/19 22:00 02/28/19 09:03 Pepcid PO 10 mg BID JUAQUIN Administration Heparin Sodium (Porcine) 5,000 unit 02/25/19 22:00 02/28/19 05:44 Heparin SUB-Q 5,000 unit Q8HR JUAQUIN Administration Vancomycin HCl 1 gm in 250 mls @ 166.667 mls/hr 02/26/19 18:00 02/26/19 21:56 Vancomycin/Ns 1 Gm/250 Ml IV 03/24/19 19:29 166.667 mls/hr TuThSa@1800 JUAQUIN Administration Sodium Chloride 100 mls @ 999 mls/hr 02/26/19 12:30 Nacl 0.9% IV ANNI PRN Hypotension Insulin Human Lispro 0 unit 02/25/19 21:00 02/27/19 22:08 Humalog SUB-Q 5 unit QHS JUAQUIN Administration Protocol Levothyroxine Sodium 50 mcg 02/26/19 06:00 02/28/19 05:44 Synthroid PO 50 mcg DAILY@0600 JUAQUIN Administration Multivit/Ca Carb/B Cmplx/FA/Prenat 1 cap 02/27/19 08:00 02/28/19 09:02 Renal Caps PO 1 cap QDAY JUAQUIN Administration Oxycodone/Acetaminophen 1 tab 02/25/19 18:39 02/28/19 06:40 Percocet 5/325 PO 1 tab Q6H PRN Administration Pain, Moderate (4-6) Pravastatin Sodium 40 mg 02/25/19 21:00 02/27/19 22:03 Pravachol PO 40 mg QHS JUAQUIN Administration Pregabalin 75 mg 02/25/19 22:00 02/27/19 22:02 Lyrica PO 75 mg HS JUAQUIN Administration Sodium Polystyrene Sulfonate 15 gm 02/25/19 18:39 Kionex PO Q6HR PRN Hyperkalemia
[2019-02-28] MEDS: NORVASC PO SCH (09:36)
[2019-02-28] MEDS ORDERED: MYLICON PO PRN (10:11)
[2019-02-28] MEDS ORDERED: NACL 0.9 (PRIMING MACHINE ONLY DIALYSIS) MC ONE (12:27)
[2019-02-28 12:36] LABS: Hepatitis B Surface Antigen Non-Reactive (Negative); Hepatitis C Virus Antibody Non-Reactive (NonReactive)
--- NOTE | 2019-02-28 13:05 | Progress Note ---
Assessment and Plan 1. ESRD: Continue hemodialysis three times a week, TTS schedule. 2. Anemia: S/p 2 units of PRBC on 02/19/19. Epogen with HD. 3. PAD: S/p R LE angioplasty and R BKA. 4. GILBERTO: CPAP. 5. DM type 2. 6. HTN: BP well controlled. Subjective Date of service: 02/28/19 Principal diagnosis: R BKA Interval history: Patient was seen and examined at the bedside while on HD. Doing ok. Objective - Vital Signs Vital signs: Vital Signs - 12hr 02/28/19 02/28/19 02/28/19 04:53 05:04 08:13 Temperature 97.4 F L 97.4 F L 97.4 F L Pulse Rate 60 63 Respiratory 18 17 18 Rate Blood Pressure 108/62 123/52 Blood Pressure 108/62 [Right] O2 Sat by Pulse 100 98 Oximetry - General Appearance General appearance: well-developed, appears stated age, other (no distress) EENT: ATNC, PERRL Neck: supple Respiratory: Present: Clear to Ascultation Cardiology: regular, S1S2, no murmurs Gastrointestinal: normoactive bowel sounds, no tenderness, no distended Integumentary: no rash, warm and dry Neurologic: no asterixis, confused, other (diminished eye sight) Musculoskeletal: other (R BKA, no edema, L arm AVF) Psychiatric: cooperative - Lab 02/28/19 07:27 02/28/19 07:27 Most recent lab results Calcium 8.4 mg/dL (8.4-10.2) 02/28/19 07:27 Medications & Allergies - Medications Allergies/Adverse Reactions: Allergies Iodinated Contrast- Oral and IV Dye Allergy (Verified 11/25/18 15:48) Hives, Rash Penicillins Allergy (Verified 11/25/18 15:48) Hives Home Medications: Home Medications Medication Instructions Recorded Confirmed Last Taken Type B Complex 11/Folic/C/Biot/Zinc 1 each PO DAILY 09/06/15 02/25/19 11/25/18 20:00 History [Dialyvite with Zinc Tablet] Lispro Insulin [HumaLOG] 7 unit SQ AC 11/25/18 02/25/19 Unknown History Pantoprazole Sodium 40 mg PO DAILY 11/25/18 02/25/19 11/26/18 05:00 History amLODIPine [Norvasc] 5 mg PO DAILY 11/25/18 02/25/19 11/28/18 History 2.5 Ranitidine HCl [Zantac] 300 mg PO BID 02/16/19 02/25/19 Unknown History Calcium Acetate 667 mg PO AC 02/18/19 02/25/19 Unknown History Levothyroxine 0.05 mg PO QDAY 02/18/19 02/25/19 Unknown History Lyrica 75 mg PO HS 02/18/19 02/25/19 Unknown History Pravastatin 40 mg PO HS 02/18/19 02/25/19 Unknown History Zetia 10 mg PO HS 02/18/19 02/25/19 Unknown History Aspirin EC 81 mg PO QDAY #30 tablet 02/25/19 02/25/19 Unknown Rx Clopidogrel [Plavix] 75 mg PO QDAY #30 tablet 02/25/19 02/25/19 Unknown Rx oxyCODONE /ACETAMINOPHEN [Percocet 1 tab PO Q6H PRN #14 tablet 02/25/19 02/25/19 Unknown Rx 5/325 mg] Active Medications: Generic Name Dose Route Start Last Admin Trade Name Freq PRN Reason Stop Dose Admin Albuterol 2.5 mg 02/25/19 18:39 Proventil IH Q4HRT PRN Shortness Of Breath Amlodipine Besylate 5 mg 02/26/19 08:00 02/28/19 09:36 Norvasc PO Not Given QDAY JUAQUIN Aspirin 81 mg 02/26/19 08:00 02/28/19 09:02 Halfprin Ec PO 81 mg QDAY JUAQUIN Administration Calcium Acetate 667 mg 02/26/19 07:30 02/28/19 11:25 Phoslo PO 667 mg AC JUAQUIN Administration Clopidogrel Bisulfate 75 mg 02/26/19 08:00 02/28/19 09:03 Plavix PO 75 mg QDAY JUAQUIN Administration Dextrose 50 ml 02/25/19 18:31 D50w (25gm) Syringe IV PRN PRN Hypoglycemia Diphenhydramine HCl 25 mg 02/25/19 18:39 02/27/19 18:16 Benadryl PO 25 mg Q6H PRN Administration Itching Ezetimibe 10 mg 02/25/19 22:00 02/27/19 22:03 Zetia PO 10 mg HS JUAQUIN Administration Epoetin [place] 10,000 unit 02/26/19 13:00 02/26/19 17:58 Procrit IV 10,000 unit ANNI JUAQUIN Administration Famotidine 10 mg 02/25/19 22:00 02/28/19 09:03 Pepcid PO 10 mg BID JUAQUIN Administration Heparin Sodium (Porcine) 5,000 unit 02/25/19 22:00 02/28/19 05:44 Heparin SUB-Q 5,000 unit Q8HR JUAQUIN Administration Vancomycin HCl 1 gm in 250 mls @ 166.667 mls/hr 02/26/19 18:00 02/26/19 21:56 Vancomycin/Ns 1 Gm/250 Ml IV 03/24/19 19:29 166.667 mls/hr TuThSa@1800 JUAQUIN Administration Sodium Chloride 100 mls @ 999 mls/hr 02/26/19 12:30 Nacl 0.9% IV ANNI PRN Hypotension Insulin Human Lispro 0 unit 02/25/19 21:00 02/27/19 22:08 Humalog SUB-Q 5 unit QHS JUAQUIN Administration Protocol Levothyroxine Sodium 50 mcg 02/26/19 06:00 02/28/19 05:44 Synthroid PO 50 mcg DAILY@0600 JUAQUIN Administration Multivit/Ca Carb/B Cmplx/FA/Prenat 1 cap 02/27/19 08:00 02/28/19 09:02 Renal Caps PO 1 cap QDAY JUAQUIN Administration Oxycodone/Acetaminophen 1 tab 02/25/19 18:39 02/28/19 06:40 Percocet 5/325 PO 1 tab Q6H PRN Administration Pain, Moderate (4-6) Pravastatin Sodium 40 mg 02/25/19 21:00 02/27/19 22:03 Pravachol PO 40 mg QHS JUAQUIN Administration Pregabalin 75 mg 02/25/19 22:00 02/27/19 22:02 Lyrica PO 75 mg HS JUAQUIN Administration Simethicone 80 mg 02/28/19 10:11 02/28/19 11:25 Mylicon PO 80 mg Q6H PRN Administration Gas pain Sodium Polystyrene Sulfonate 15 gm 02/25/19 18:39 Kionex PO Q6HR PRN Hyperkalemia
[2019-02-28] MEDS: VANCOMYCIN/NS 1 GM/250 ML 1 GM/250 ML BAG IV SCH (17:42)
--- NOTE | 2019-02-28 18:45 | IRU Plan of Care ---
Interdisciplinary Plan of Care - IP IRU INTERDISCIPLINARY PLAN: [facility] Inpatient Rehab Unit Plan of Care IRU Interdisciplinary Care Plan Start: 02/25/19 20:17 Freq: Admission then PRN Status: Complete Protocol: Document 02/26/19 01:45 RALPH (Rec: 02/26/19 01:49 RALPH [id number]) Interdisciplinary Problem List Interdisciplinary Problem List Interdisciplinary Problem List Impaired Bathing/Grooming, Query Text:Answers will Trigger Problems Impaired Mobility,Impaired and Outcomes on Worklist. Transfers,Impaired Memory, Impaired Skin/Tissue Integrity ,Impaired Safety,Medications Education IRU Interdisciplinary Care Plan Therapy Services Therapy Services Will Include: Physical Therapy,Occupational Query Text:Patient will be seen for a Therapy,Speech Therapy minimum of 3 hours of daily therapy 5 out of 7 days a week. Therapy intensity may be adjusted within a 7 consecutive day period to effectively serve the individual needs of the patient. Treatment Frequency/Intensity/Duration Treatment Frequency Treatment Intensity Treatment Duration Problem Area: Eating/Swallowing Eating/Swallowing Outcomes Eating/Swallowing Interventions Problem Area: Bathing/Grooming Bathing/Grooming Outcomes Improve Tracy w/ Grooming Bathing/Grooming Interventions ADL Training,Use of Assistive Devices,Therapeutic Exercise, Therapeutic Activity, Neuromuscular Re-Education, Balance Work,Activity Tolerance Work,Patient/ Caregiver Education Problem Area: Dressing Dressing Outcomes Improve Tracy w/ UB Dressing,Improve Tracy w/ LB Dressing Dressing Interventions ADL Training,Use of Assistive Devices,Neuromuscular Re- Education,Therapeutic Exercise ,Balance Work,Modalities, Patient/Caregiver Education Problem Area: Mobility Mobility Outcomes Improve Tracy w/ Bed Mobility,Improve Tracy w/ Ambulation,Improve Tracy w/ Wheelchair Mobility Interventions Therapeutic Exercise,Visual/ Perceptual Training,Activity Tolerance Work,Modalities,Use of Assistive Devices,Patient/ Caregiver Education,Bed Mobility Work,Gait Training, Household Mobility Work,W/C Mobility Work Problem Area: Transfers Transfers Outcomes Improve Tracy w/ Bed Transfers,Improve Tracy w/ Toilet Transfers,Improve Tracy w/ Tub/Shower Transfers,Improve Tracy w/ Car Transfers Transfers Interventions Transfer Training,Therapeutic Exercise,Activity Tolerance Work,Modalities,Use of Assistive Devices,Patient/ Caregiver Education Problem Area: Bowel/Bladder Managment Bowel/Bladder Outcomes Bowel/Bladder Interventions Problem Area: Toileting Toileting Outcomes Toileting Interventions Problem Area: Nutrition Nutrition Outcomes Nutrition Interventions Problem Area: Comprehension Comprehension Outcomes Comprehension Interventions Problem Area: Expression Expression Outcomes Expression Interventions Problem Area: Problem Solving Problem Solving Outcomes Problem Solving Interventions Problem Area: Memory Memory Outcomes Use Memory Aids Memory Interventions Cognitive Training,Review of Precautions,Patient/Caregiver Education Problem Area: Pain Management Pain Management Outcomes Demonstrate/Verbalize Pain Strategies Pain Management Interventions Medication Management,Use of Devices/Modalities (TENS, hot pack, cold pack, etc.), Positioning/Turning,Patient/ Caregiver Education Problem Area: Knowledge Deficits Knowledge Deficits Outcomes Knowledge Deficits Interventions Problem Area: Skin/Tissue Integrity Skin/Tissue Integrity Outcomes Exhibit Healing of Wound/ Incision Skin/Tissue Integrity Interventions Skin/Wound Care,Pressure Relief Instruction,Dressing Change Education,Positioning/ Turning Problem Area: Social Interaction Social Interaction Outcomes Social Interaction Interventions Problem Area: Adjustment to Disability Adjustment to Disability Outcomes Adjustment to Disability Interventions Problem Area: Discharge Concerns Discharge Concerns Outcomes Discharge Concerns Interventions Problem Area: Community Reintegration Community Reintegration Outcomes Community Reintegration Interventions Problem Area: Home Management Home Management Outcomes Home Management Interventions Problem Area: Safety Safety Outcomes Provide Safe Environment, Perform Selfcare Safely, Demonstrate Good Safety w/ Transfers/Mobility Safety Interventions Identify Fall Risk,[place]. to Environment,Reduce Environmental Hazards, Implement Mechanical Devices, i.e. Chair Alarm (Post Fall Update),Re-Educate Patient/ Caregiver for Safety (Post Fall Update) Problem Area: Medication Education Medication Education Outcomes Patient/Caregiver will Verbalize Understanding of Medications Medication Education Interventions Explain Administration/Side Effects/Interactions Problem Area: Diabetes Education Diabetes Education Outcomes Diabetes Education Interventions Problem Area: Oxygenation Oxygenation Outcomes Oxygenation Interventions Problem Area: Cardiovascular Cardiovascular Outcomes Cardiovascular Interventions Physician Only Medical Prognosis and Rehabilitation Potential (Completed by Physician) IRU Interdisciplinary Care Plan Start: 02/27/19 16:53 Freq: Status: Active Protocol: Document 02/28/19 10:10 AP (Rec: 02/28/19 10:26 AP [id number]) Interdisciplinary Problem List Interdisciplinary Problem List Interdisciplinary Problem List Impaired Problem Solving, Query Text:Answers will Trigger Problems Impaired Memory and Outcomes on Worklist. IRU Interdisciplinary Care Plan Therapy Services Therapy Services Will Include: Speech Therapy Query Text:Patient will be seen for a minimum of 3 hours of daily therapy 5 out of 7 days a week. Therapy intensity may be adjusted within a 7 consecutive day period to effectively serve the individual needs of the patient. Treatment Frequency/Intensity/Duration Treatment Frequency 5days/wk Treatment Intensity 30 minutes Treatment Duration LOS Problem Area: Eating/Swallowing Eating/Swallowing Outcomes Eating/Swallowing Interventions Problem Area: Bathing/Grooming Bathing/Grooming Outcomes Bathing/Grooming Interventions Problem Area: Dressing Dressing Outcomes Dressing Interventions Problem Area: Mobility Mobility Outcomes Mobility Interventions Problem Area: Transfers Transfers Outcomes Transfers Interventions Problem Area: Bowel/Bladder Managment Bowel/Bladder Outcomes Bowel/Bladder Interventions Problem Area: Toileting Toileting Outcomes Toileting Interventions Problem Area: Nutrition Nutrition Outcomes Nutrition Interventions Problem Area: Comprehension Comprehension Outcomes Comprehension Interventions Problem Area: Expression Expression Outcomes Expression Interventions Problem Area: Problem Solving Problem Solving Outcomes Improve Problem Solving Problem Solving Interventions Cognitive Training,Safety Education,Patient/Caregiver Education Problem Area: Memory Memory Outcomes Use Memory Aids Memory Interventions Cognitive Training,Use of Assistive Devices (Memory Book , etc,),Review of Precautions, Patient/Caregiver Education Problem Area: Pain Management Pain Management Outcomes Pain Management Interventions Problem Area: Knowledge Deficits Knowledge Deficits Outcomes Knowledge Deficits Interventions Problem Area: Skin/Tissue Integrity Skin/Tissue Integrity Outcomes Skin/Tissue Integrity Interventions Problem Area: Social Interaction Social Interaction Outcomes Social Interaction Interventions Problem Area: Adjustment to Disability Adjustment to Disability Outcomes Adjustment to Disability Interventions Problem Area: Discharge Concerns Discharge Concerns Outcomes Discharge Concerns Interventions Problem Area: Community Reintegration Community Reintegration Outcomes Community Reintegration Interventions Problem Area: Home Management Home Management Outcomes Home Management Interventions Problem Area: Safety Safety Outcomes Safety Interventions Problem Area: Medication Education Medication Education Outcomes Medication Education Interventions Problem Area: Diabetes Education Diabetes Education Outcomes Diabetes Education Interventions Problem Area: Oxygenation Oxygenation Outcomes Oxygenation Interventions Problem Area: Cardiovascular Cardiovascular Outcomes Cardiovascular Interventions Physician Only Medical Prognosis and Rehabilitation Poor overall medical prognosis. Patient has multiple comorbidities including ESRD. Fair rehab portential . Will likely be a K1 ambulator which is where she was in her premorbid state. Could possible work to be a K2 but not likely. Will continue to monitor and help her to attain the highest level of function possible. Potential (Completed by Physician) This plan of care has been developed based on the findings from the pre- admission assessment, post admission physician evaluation, information gathered from the assessments from all therapy disciplines and other pertinent clinicians. The plan of care has been reviewed and discussed in collaboration with the interdisciplinary team. The plan of care will be reviewed and updated at least weekly.
[2019-02-28] MEDS: PRAVACHOL PO SCH (21:59)
[2019-02-28] MEDS: LYRICA PO SCH (22:00)
[2019-02-28] MEDS: ZETIA PO SCH (22:00)
[2019-02-28] MEDS: HumaLOG SUB-Q SCH (22:01)
[2019-03-01] MEDS: HEPARIN SUB-Q SCH ×3 (05:43→22:01)
[2019-03-01] MEDS: SYNTHROID PO SCH (05:44)
--- NOTE | 2019-03-01 08:39 | Progress Note ---
Assessment and Plan Assessment and plan: 78-year-old female with right foot pain present your found to have sepsis. Amputation was previously discussed for the right lower extremity gangrene however family refused. Patient had been undergoing treatment HBOT without resolution. ID was consulted and started antibiotics. Vascular surgery perfo rmed angiography. Afterwards she was scheduled for a right BKA which proceeded without incident. After the patient was medically stabilized they were transferred for further rehabilitation. 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 abdominal pain resolved, noted skin lesion at different stages. Hospitalist Physical - Physical exam Narrative exam: General appearance: Present: no acute distress, well-nourished, obese - EENT Eyes: Present: PERRL ENT: hearing intact, clear oral mucosa - Neck Neck: Present: supple, normal ROM - Respiratory Respiratory effort: normal Respiratory: bilateral: CTA - Cardiovascular Heart Sounds: Present: S1 & S2. Absent: rub, click - Extremities Extremities: pulses symmetrical, No edema Extremity abnormal: other (Rt BKA) Peripheral Pulses: within normal limits - Abdominal General gastrointestinal: Present: soft, non-tender, non-distended, normal bowel sounds Female genitourinary: Present: normal - Integumentary Integumentary: Present: multiple generalized skin lesion, warm, dry - Musculoskeletal Musculoskeletal: gait normal, strength equal bilaterally - Psychiatric Psychiatric: appropriate mood/affect, intact judgment & insight - Neurologic Neurologic: CNII-XII intact, moves all extremities - Constitutional Vitals: Temp Pulse Resp BP Pulse Ox 97.9 F 74 18 139/56 100 03/01/19 04:53 03/01/19 07:28 03/01/19 04:53 03/01/19 04:53 03/01/19 07:28 General appearance: Present: no acute distress, well-nourished Results - Labs CBC & Chem 7: 02/28/19 07:27 02/28/19 07:27 Labs: Laboratory Last Values WBC 6.3 K/mm3 (4.5-11.0) 02/28/19 07: RBC 3.32 M/mm3 (3.65-5.03) L 02/28/19 07: Hgb 8.0 gm/dl (10.1-14.3) L 02/28/19 07: Hct 25.8 % (30.3-42.9) L 02/28/19 07: MCV 78 fl (79-97) L 02/28/19 07: MCH 24 pg (28-32) L 02/28/19 07: MCHC 31 % (30-34) 02/28/19 07: RDW 22.3 % (13.2-15.2) H 02/28/19 07:27 Plt Count 494 K/mm3 (140-440) H 02/28/19 07:27 Lymph % (Auto) Strike Planning Applications 02/26/19 11:01 Navarro % (Auto) Strike Planning Applications 02/26/19 11:01 Eos % (Auto) Strike Planning Applications 02/26/19 11:01 Baso % (Auto) Strike Planning Applications 02/26/19 11:01 Lymph # Strike Planning Applications 02/26/19 11:01 Navarro # Strike Planning Applications 02/26/19 11:01 Eos # Strike Planning Applications 02/26/19 11:01 Baso # Strike Planning Applications 02/26/19 11:01 Add Manual Diff Complete 02/26/19 11:01 Total Counted 100 02/26/19 11:01 Seg Neutrophils % Strike Planning Applications 02/26/19 11:01 Seg Neuts % (Manual) 86.0 % (40.0-70.0) H 02/26/19 11:01 0 % 02/26/19 11:01 4.0 % (13.4-35.0) L 02/26/19 11:01 Reactive Lymphs % (Man) 0 % 02/26/19 11:01 9.0 % (0.0-7.3) H 02/26/19 11:01 1.0 % (0.0-4.3) 02/26/19 11:01 0 % (0.0-1.8) 02/26/19 11:01 0 % 02/26/19 11:01 0 % 02/26/19 11:01 0 % 02/26/19 11:01 0 % 02/26/19 11:01 Nucleated RBC % Not Reportable 02/26/19 11:01 Seg Neutrophils # Strike Planning Applications 02/26/19 11:01 Seg Neutrophils # Man 6.4 K/mm3 (1.8-7.7) 02/26/19 11:01 Band Neutrophils # 0.0 K/mm3 02/26/19 11:01 0.3 K/mm3 (1.2-5.4) L 02/26/19 11:01 Abs React Lymphs (Man) 0.0 K/mm3 02/26/19 11:01 0.7 K/mm3 (0.0-0.8) 02/26/19 11:01 0.1 K/mm3 (0.0-0.4) 02/26/19 11:01 0.0 K/mm3 (0.0-0.1) 02/26/19 11:01 0.0 K/mm3 02/26/19 11:01 0.0 K/mm3 02/26/19 11:01 0.0 K/mm3 02/26/19 11:01 Blast Cells # 0.0 K/mm3 02/26/19 11:01 WBC Morphology Not Reportable 02/26/19 11:01 Hypersegmented Neuts Not Reportable 02/26/19 11:01 Hyposegmented Neuts Not Reportable 02/26/19 11:01 Hypogranular Neuts Not Reportable 02/26/19 11:01 Not Reportable 02/26/19 11:01 Not Reportable 02/26/19 11:01 Not Reportable 02/26/19 11:01 Not Reportable 02/26/19 11:01 Not Reportable 02/26/19 11:01 Not Reportable 02/26/19 11:01 Consistent w auto 02/26/19 11:01 Not Reportable 02/26/19 11:01 Plt Clumps, EDTA Not Reportable 02/26/19 11:01 Not Reportable 02/26/19 11:01 Not Reportable 02/26/19 11:01 Not Reportable 02/26/19 11:01 Plt Morphology Comment Not Reportable 02/26/19 11:01 RBC Morphology Not Reportable 02/26/19 11:01 Dimorphic RBCs Not Reportable 02/26/19 11:01 Few 02/26/19 11:01 1+ 02/26/19 11:01 Not Reportable 02/26/19 11:01 1+ 02/26/19 11:01 Not Reportable 02/26/19 11:01 Not Reportable 02/26/19 11:01 Not Reportable 02/26/19 11:01 Not Reportable 02/26/19 11:01 Not Reportable 02/26/19 11:01 Few 02/26/19 11:01 Not Reportable 02/26/19 11:01 Few 02/26/19 11:01 Not Reportable 02/26/19 11:01 Not Reportable 02/26/19 11:01 Not Reportable 02/26/19 11:01 Not Reportable 02/26/19 11:01 Not Reportable 02/26/19 11:01 Not Reportable 02/26/19 11:01 Not Reportable 02/26/19 11:01 Acanthocytes (Spur) Not Reportable 02/26/19 11:01 Rouleaux Not Reportable 02/26/19 11:01 Not Reportable 02/26/19 11:01 Not Reportable 02/26/19 11:01 Not Reportable 02/26/19 11:01 Not Reportable 02/26/19 11:01 Hem Pathologist Commnt No 02/26/19 11:01 Sodium 134 mmol/L (137-145) L 02/28/19 07:27 Potassium 4.0 mmol/L (3.6-5.0) 02/28/19 07:27 Chloride 93.4 mmol/L (98-107) L 02/28/19 07:27 Carbon Dioxide 28 mmol/L (22-30) 02/28/19 07:27 17 mmol/L 02/28/19 07:27 BUN 33 mg/dL (7-17) H 02/28/19 07:27 4.9 mg/dL (0.7-1.2) H 02/28/19 07:27 Estimated GFR 10 ml/min 02/28/19 07:27 7 % 02/28/19 07:27 Glucose 98 mg/dL (65-100) 02/28/19 07:27 POC Glucose 343 (70-105) H 02/28/19 21:42 Calcium 8.4 mg/dL (8.4-10.2) 02/28/19 07:27 0.40 mg/dL (0.1-1.2) 02/26/19 11:01 AST 32 units/L (5-40) 02/26/19 11:01 ALT 17 units/L (7-56) 02/26/19 11:01 382 units/L (35-129) H 02/26/19 11:01 5.7 g/dL (6.3-8.2) L 02/26/19 11:01 2.6 g/dL (3.9-5) L 02/26/19 11:01 0.8 % 02/26/19 11:01 Hepatitis A IgM Ab Non-reactive (NonReactive) 02/28/19 10:48 Hep Bs Antigen Non-reactive (Negative) 02/28/19 10:48 Hep B Core IgM Ab Non-reactive (NonReactive) 02/28/19 10:48 Non-reactive (NonReactive) 02/28/19 10:48 Active Medications - Current Medications Current Medications: Generic Name Dose Route Start Last Admin Trade Name Freq PRN Reason Stop Dose Admin Albuterol 2.5 mg 02/25/19 18:39 Proventil IH Q4HRT PRN Shortness Of Breath Amlodipine Besylate 5 mg 02/26/19 08:00 02/28/19 09:36 Norvasc PO Not Given QDAY JUAQUIN Aspirin 81 mg 02/26/19 08:00 02/28/19 09:02 Halfprin Ec PO 81 mg QDAY JUAQUIN Administration Calcium Acetate 667 mg 02/26/19 07:30 02/28/19 16:26 Phoslo PO 667 mg AC JUAQUIN Administration Clopidogrel Bisulfate 75 mg 02/26/19 08:00 02/28/19 09:03 Plavix PO 75 mg QDAY JUAQUIN Administration Dextrose 50 ml 02/25/19 18:31 D50w (25gm) Syringe IV PRN PRN Hypoglycemia Diphenhydramine HCl 25 mg 02/25/19 18:39 02/27/19 18:16 Benadryl PO 25 mg Q6H PRN Administration Itching Ezetimibe 10 mg 02/25/19 22:00 02/28/19 22:00 Zetia PO 10 mg HS JUAQUIN Administration Epoetin [place] 10,000 unit 02/26/19 13:00 02/26/19 17:58 Procrit IV 10,000 unit ANNI [facility] Administration Famotidine 10 mg 02/25/19 22:00 02/28/19 21:59 Pepcid PO 10 mg BID JUAQUIN Administration Heparin Sodium (Porcine) 5,000 unit 02/25/19 22:00 03/01/19 05:43 Heparin SUB-Q 5,000 unit Q8HR JUAQUIN Administration Vancomycin HCl 1 gm in 250 mls @ 166.667 mls/hr 02/26/19 18:00 02/28/19 17:42 Vancomycin/Ns 1 Gm/250 Ml IV 03/24/19 19:29 166.667 mls/hr TuThSa@1800 [facility] Administration Sodium Chloride 100 mls @ 999 mls/hr 02/26/19 12:30 Nacl 0.9% IV ANNI PRN Hypotension Insulin Human Isoph/Insulin Regular 16 unit 03/01/19 17:00 Humulin 70/30 SUB-Q BIDDIAB JUAQUIN Insulin Human Lispro 0 unit 02/25/19 21:00 02/28/19 22:01 Humalog SUB-Q 4 unit QHS JUAQUIN Administration Protocol Levothyroxine Sodium 50 mcg 02/26/19 06:00 03/01/19 05:44 Synthroid PO 50 mcg DAILY@0600 [facility] Administration Multivit/Ca Carb/B Cmplx/FA/Prenat 1 cap 02/27/19 08:00 02/28/19 09:02 Renal Caps PO 1 cap QDAY JUAQUIN Administration Oxycodone/Acetaminophen 1 tab 02/25/19 18:39 02/28/19 06:40 Percocet 5/325 PO 1 tab Q6H PRN Administration Pain, Moderate (4-6) Pravastatin Sodium 40 mg 02/25/19 21:00 02/28/19 21:59 Pravachol PO 40 mg QHS JUAQUIN Administration Pregabalin 75 mg 02/25/19 22:00 02/28/19 22:00 Lyrica PO 75 mg HS [facility] Administration Simethicone 80 mg 02/28/19 10:11 02/28/19 11:25 Mylicon PO 80 mg Q6H PRN Administration Gas pain Sodium Polystyrene Sulfonate 15 gm 02/25/19 18:39 Kionex PO Q6HR PRN Hyperkalemia
[2019-03-01] MEDS: PEPCID PO SCH ×2 (10:38→21:59)
[2019-03-01] MEDS: Renal Caps PO SCH (10:39)
[2019-03-01] MEDS: PHOSLO PO SCH ×3 (10:39→19:13)
[2019-03-01] MEDS: PERCOCET 5/325 PO PRN ×2 (10:39→19:13)
[2019-03-01] MEDS: PLAVIX PO SCH (10:39)
[2019-03-01] MEDS: NORVASC PO SCH (10:40)
[2019-03-01] MEDS: HALFPRIN EC PO SCH (10:41)
[2019-03-01] MEDS: LYRICA PO SCH (21:59)
[2019-03-01] MEDS: PRAVACHOL PO SCH (22:00)
[2019-03-01] MEDS: ZETIA PO SCH (22:00)
[2019-03-01] MEDS: HumaLOG SUB-Q SCH (22:00)
[2019-03-02] MEDS: SYNTHROID PO SCH (05:37)
[2019-03-02] MEDS: HEPARIN SUB-Q SCH ×3 (05:37→22:07)
[2019-03-02] MEDS: PLAVIX PO SCH (09:16)
[2019-03-02] MEDS: PHOSLO PO SCH ×3 (09:16→17:08)
[2019-03-02] MEDS: HALFPRIN EC PO SCH (09:17)
[2019-03-02] MEDS: PEPCID PO SCH ×2 (09:17→22:07)
[2019-03-02] MEDS: Renal Caps PO SCH (09:17)
--- NOTE | 2019-03-02 10:32 | Progress Note ---
Assessment and Plan 1. ESRD: Continue hemodialysis three times a week, TTS schedule. 2. Anemia: S/p PRBC. Epogen with HD. 3. PAD: S/p R LE angioplasty and R BKA. 4. GILBERTO: CPAP. 5. DM type 2. 6. HTN: BP well controlled. Subjective Date of service: 03/02/19 Principal diagnosis: R BKA Interval history: Patient was seen and examined at the chairside. Doing ok. Objective - Vital Signs Vital signs: Vital Signs - 12hr 03/02/19 03/02/19 05:17 07:40 Temperature 98.5 F 97.8 F Pulse Rate 57 L 54 L Respiratory 19 20 Rate Blood Pressure 109/50 123/51 O2 Sat by Pulse 99 100 Oximetry - General Appearance General appearance: well-developed, well-nourished, appears stated age, other (n o distress) EENT: ATNC, hearing diminished Neck: supple Respiratory: Present: Clear to Ascultation Cardiology: regular, S1S2, no murmurs Gastrointestinal: normoactive bowel sounds, no tenderness, no distended Integumentary: no rash Neurologic: no asterixis, other (diminished vision) Musculoskeletal: other (R BKA, L arm AVF) Psychiatric: cooperative - Lab 02/28/19 07:27 03/02/19 07:57 Most recent lab results Calcium 8.4 mg/dL (8.4-10.2) 02/28/19 07:27 Medications & Allergies - Medications Allergies/Adverse Reactions: Allergies Iodinated Contrast- Oral and IV Dye Allergy (Verified 11/25/18 15:48) Hives, Rash Penicillins Allergy (Verified 11/25/18 15:48) Hives Home Medications: Home Medications Medication Instructions Recorded Confirmed Last Taken Type B Complex 11/Folic/C/Biot/Zinc 1 each PO DAILY 09/06/15 02/25/19 11/25/18 20:00 History [Dialyvite with Zinc Tablet] Lispro Insulin [HumaLOG] 7 unit SQ AC 11/25/18 02/25/19 Unknown History Pantoprazole Sodium 40 mg PO DAILY 11/25/18 02/25/19 11/26/18 05:00 History amLODIPine [Norvasc] 5 mg PO DAILY 11/25/18 02/25/19 11/28/18 History 2.5 Ranitidine HCl [Zantac] 300 mg PO BID 02/16/19 02/25/19 Unknown History Calcium Acetate 667 mg PO AC 02/18/19 02/25/19 Unknown History Levothyroxine 0.05 mg PO QDAY 02/18/19 02/25/19 Unknown History Lyrica 75 mg PO HS 02/18/19 02/25/19 Unknown History Pravastatin 40 mg PO HS 02/18/19 02/25/19 Unknown History Zetia 10 mg PO HS 02/18/19 02/25/19 Unknown History Aspirin EC 81 mg PO QDAY #30 tablet 02/25/19 02/25/19 Unknown Rx Clopidogrel [Plavix] 75 mg PO QDAY #30 tablet 02/25/19 02/25/19 Unknown Rx oxyCODONE /ACETAMINOPHEN [Percocet 1 tab PO Q6H PRN #14 tablet 02/25/19 02/25/19 Unknown Rx 5/325 mg] Active Medications: Generic Name Dose Route Start Last Admin Trade Name Freq PRN Reason Stop Dose Admin Albuterol 2.5 mg 02/25/19 18:39 Proventil IH Q4HRT PRN Shortness Of Breath Amlodipine Besylate 5 mg 02/26/19 08:00 03/01/19 10:40 Norvasc PO 5 mg QDAY JUAQUIN Administration Aspirin 81 mg 02/26/19 08:00 03/02/19 09:17 Halfprin Ec PO 81 mg QDAY JUAQUIN Administration Calcium Acetate 667 mg 02/26/19 07:30 03/02/19 09:16 Phoslo PO 667 mg AC JUAQUIN Administration Clopidogrel Bisulfate 75 mg 02/26/19 08:00 03/02/19 09:16 Plavix PO 75 mg QDAY JUAQUIN Administration Dextrose 50 ml 02/25/19 18:31 03/02/19 07:46 D50w (25gm) Syringe IV 50 ml PRN PRN Administration Hypoglycemia Diphenhydramine HCl 25 mg 02/25/19 18:39 02/27/19 18:16 Benadryl PO 25 mg Q6H PRN Administration Itching Ezetimibe 10 mg 02/25/19 22:00 03/01/19 22:00 Zetia PO 10 mg HS JUAQUIN Administration Epoetin [place] 10,000 unit 02/26/19 13:00 02/26/19 17:58 Procrit IV 10,000 unit ANNI JUAQUIN Administration Famotidine 10 mg 02/25/19 22:00 03/02/19 09:17 Pepcid PO 10 mg BID JUAQUIN Administration Heparin Sodium (Porcine) 5,000 unit 02/25/19 22:00 03/02/19 05:37 Heparin SUB-Q 5,000 unit Q8HR JUAQUIN Administration Vancomycin HCl 1 gm in 250 mls @ 166.667 mls/hr 02/26/19 18:00 03/01/19 21:50 Vancomycin/Ns 1 Gm/250 Ml IV 03/24/19 19:29 Infused TuThSa@1800 JUAQUIN Infusion Sodium Chloride 100 mls @ 999 mls/hr 02/26/19 12:30 Nacl 0.9% IV ANNI PRN Hypotension Insulin Human Isoph/Insulin Regular 16 unit 03/01/19 17:00 03/02/19 09:18 Humulin 70/30 SUB-Q Not Given BIDDIAB [facility] Insulin Human Lispro 0 unit 02/25/19 21:00 03/01/19 22:00 Humalog SUB-Q 4 unit QHS [facility] Administration Protocol Levothyroxine Sodium 50 mcg 02/26/19 06:00 03/02/19 05:37 Synthroid PO 50 mcg DAILY@0600 [facility] Administration Multivit/Ca Carb/B Cmplx/FA/Prenat 1 cap 02/27/19 08:00 03/02/19 09:17 Renal Caps PO 1 cap QDAY JUAQUIN Administration Oxycodone/Acetaminophen 1 tab 02/25/19 18:39 03/01/19 19:13 Percocet 5/325 PO 1 tab Q6H PRN Administration Pain, Moderate (4-6) Pravastatin Sodium 40 mg 02/25/19 21:00 03/01/19 22:00 Pravachol PO 40 mg QHS JUAQUIN Administration Pregabalin 75 mg 02/25/19 22:00 03/01/19 21:59 Lyrica PO 75 mg HS [facility] Administration Simethicone 80 mg 02/28/19 10:11 02/28/19 11:25 Mylicon PO 80 mg Q6H PRN Administration Gas pain Sodium Polystyrene Sulfonate 15 gm 02/25/19 18:39 Kionex PO Q6HR PRN Hyperkalemia
[2019-03-02] MEDS: NORVASC PO SCH (12:59)
--- NOTE | 2019-03-02 12:59 | Progress Note ---
Subjective Date of service: 03/02/19 Principal diagnosis: R BKA Interval history: 78-year-old female with right foot pain present your found to have sepsis. Amputation was previously discussed for the right lower extremity gangrene however family refused. Patient had been undergoing treatment HBOT without resolution. ID was consulted and started antibiotics. Vascular surgery performed angiography. Afterwards she was scheduled for a right BKA which proceeded without incident. After the patient was medically stabilized they were transferred for further rehabilitation. All available medical records have been reviewed. Plan of care was discussed with patient and family. Patient is participating in therapy and making reasonable progress. Taking rest breaks as needed. +BM. Denies pain, palpitations, dyspnea, cough, N/V, or joint pain. She does note that she has some phantom sensation but no overt phantom pain. GLU has been labile with values from <40 - 349. IM adjusted insulin, monitor. Making some progress with w/c push ups. Got a little emotioonal this morning when attempting to consulting hr professional parallel bars. Will continue to progress her and monitor mood.. Continue therapy as planned. All records, vitals, labs and medications were reviewed. No other issues per patient, nursing or therapy. Objective - Exam Narrative Exam: MUSCULOSKELETAL SPECIALTY EXAM CONSTITUTIONAL: Well developed, well nourished, appropriately groomed EENT: Legally blind. Oropharynx clear. Hearing mostly intact to normal voice RESPIRATORY: Clear to auscultation bilaterally, no increased work of breathing. Supplemental O2 CARDIOVASCULAR: Regular Rate/ Rhythm, no swelling, edema or tenderness in BUE or BLE. Pulses palpable in all extremities. All extremities warm. Thrill in LUE GI: + bowel sounds, soft, NTTP, nondistended. INTEGUMENTARY: Normal, no lesion, rash, masses or bruising noted in extremities. Surgical wound on right lower extremity MUSCULOSKELETAL: Right BKA, otherwise BUE and BLE normal without defect, crepitus, subluxation, effusion, arthritic changes or TTP. BUE 4/5, good ROM, with normal tone. LLE 4-/5 good ROM, with normal tone, RLE decreased ROM secondary to pain NEURO: CN 2-12 grossly intact. Sensation intact in all extremities. No tremor noted in 4 extremities. POSTURE and GAIT: Sitting posture good. Balance appears reasonable. Gait deferred until seen with therapy. PSYCH: Alert, orientated x2, slightly confused at times and decreased memory, affect appears normal. - Constitutional Vitals: Vital Signs - 12hr 03/02/19 03/02/19 03/02/19 05:17 07:40 12:28 Temperature 36.9 C 36.6 C 36.6 C Pulse Rate 57 L 54 L 66 Respiratory 19 20 18 Rate Blood Pressure 109/50 123/51 134/55 O2 Sat by Pulse 99 100 98 Oximetry - Allied health notes Allied health notes reviewed: nursing, PT, OT FIMS assessment as documented by PT/OT/ST: Grooming Patient cleans teeth/dentures: Yes Patient holguin/brushes hair: Yes Patient washes, rinses and Yes dries face: Patient washes, rinses and Yes dries hands: Patient shaves: No Patient applies make-up: No Patient performs (no make-up/ 4/4 (100%) shaving): Grooming FIM Score 4. Minimal Assistance (Patient = 75% or more. Needs touching.) Toileting Toileting Device Bedpan Toileting FIM Score 2. Maximal Assistance (Patient = 25% or more) Social interaction/Memory/Problem solving Social Interaction FIM Score 5. Supervision (Needs supv. <10%. Needs encouragement to participate.) Memory FIM Score 3. Moderate Assistance (Recognizes and remembers 50-74%.) Problem Solving FIM Score 3. Moderate Assistance (Solves routine problems 50-74%.) Transfers Mode of Locomotion: Wheelchair Bed/Chair/Wheelchair Transfers 3. Moderate Assistance (Patient = 50% or more. FIM Score Some lifting.) Toilet Transfers FIM Score 1. Total Assistance (Patient less than 25%. 2 or more persons.) Patient transferred to: Shower Shower Transfers FIM Score 1. Total Assistance (Patient less than 25%. 2 or more persons.) Locomotion- Stairs Stairs FIM Score 0. Activity does not occur Locomotion- walk/wheelchair Most Frequent Mode of Wheelchair Locomotion: Walking FIM Score 0. Activity does not occur Wheelchair Propulsion Distance 100 Wheelchair FIM Score 2. Maximal Assistance (Patient = 25% or more. Minimum of 50 ft.) Eating Eating FIM Score 7. Complete [place] (Cuts meat, opens containers, regular diet.) Dressing-Upper body Patient retrieves clothing No items: Patient applies/removes UE No: n/a prosthesis or orthosis: Upper Body Dressing FIM Score 4. Minimal Assistance (Patient = 75% or more. Needs touching.) Dressing-lower body Patient retrieves clothing No items: Patient applies/removes LE No: n/a prosthesis or orthosis: Lower Body Dressing FIM Score 2. Maximal Assistance (Patient = 25% or more) - Labs CBC & Chem 7: 02/28/19 07:27 03/02/19 07:57 Labs: Laboratory Results - last 72 hr 02/27/19 02/27/19 02/28/19 17:45 22:09 07:27 WBC 6.3 RBC 3.32 L Hgb 8.0 L Hct 25.8 L MCV 78 L MCH 24 L MCHC 31 RDW 22.3 H Plt Count 494 H Sodium Potassium Chloride Carbon Dioxide Anion Gap BUN Creatinine Estimated GFR BUN/Creatinine Ratio Glucose POC Glucose 348 H 402 H Calcium Hepatitis A IgM Ab Hep Bs Antigen Hep B Core IgM Ab Hepatitis C Antibody 02/28/19 02/28/19 02/28/19 07:27 09:03 10:48 WBC RBC Hgb Hct MCV MCH MCHC RDW Plt Count Sodium 134 L Potassium 4.0 Chloride 93.4 L Carbon Dioxide 28 Anion Gap 17 BUN 33 H Creatinine 4.9 H Estimated GFR 10 BUN/Creatinine Ratio 7 Glucose 98 POC Glucose 101 Calcium 8.4 Hepatitis A IgM Ab Non-reactive Hep Bs Antigen Non-reactive Hep B Core IgM Ab Non-reactive Hepatitis C Antibody Non-reactive 02/28/19 02/28/19 02/28/19 12:16 16:25 21:42 WBC RBC Hgb Hct MCV MCH MCHC RDW Plt Count Sodium Potassium Chloride Carbon Dioxide Anion Gap BUN Creatinine Estimated GFR BUN/Creatinine Ratio Glucose POC Glucose 219 H 261 H 343 H Calcium Hepatitis A IgM Ab Hep Bs Antigen Hep B Core IgM Ab Hepatitis C Antibody 03/01/19 03/01/19 03/01/19 10:57 18:42 21:15 WBC RBC Hgb Hct MCV MCH MCHC RDW Plt Count Sodium Potassium Chloride Carbon Dioxide Anion Gap BUN Creatinine Estimated GFR BUN/Creatinine Ratio Glucose POC Glucose 274 H 349 H 330 H Calcium Hepatitis A IgM Ab Hep Bs Antigen Hep B Core IgM Ab Hepatitis C Antibody 03/02/19 03/02/19 03/02/19 07:46 07:57 08:19 WBC RBC Hgb Hct MCV MCH MCHC RDW Plt Count Sodium Potassium Chloride Carbon Dioxide Anion Gap BUN Creatinine Estimated GFR BUN/Creatinine Ratio Glucose 185 H POC Glucose < 40 L 156 H Calcium Hepatitis A IgM Ab Hep Bs Antigen Hep B Core IgM Ab Hepatitis C Antibody 03/02/19 11:33 WBC RBC Hgb Hct MCV MCH MCHC RDW Plt Count Sodium Potassium Chloride Carbon Dioxide Anion Gap BUN Creatinine Estimated GFR BUN/Creatinine Ratio Glucose POC Glucose 161 H Calcium Hepatitis A IgM Ab Hep Bs Antigen Hep B Core IgM Ab Hepatitis C Antibody Assessment and Plan R BKA: Will likely be a K1 ambulator, K2 not likely in reach at this point. After speaking with daughter, patient will most likely remain K1. Monitor wound. On isolation for MRSA in Blood with 4 weeks vancomycin during dialysis (03/19/2019 per ID notes). Continue to work on transfers and mobility. Monitor for phantom sensation/pain. Will discuss possible termite exterminator prosthesis. Last blood culture was negative and patient remains on antibiotics with no excessive drainage from the wound. GILBERTO: Cont CPAP HTN: Monitor BP and adjust meds for normotension DM: Carb controlled diet. Monitor glucose. SSI. Insulin adjusted by IM Decreased memory: SUPER[employer]OR [employer] to assess cognitive function Hypothyroidism: Continue medication Z73.6 ADL dysfunction: OT will work on improving ability to perform ADLs ( including assistive devices) to increase independence and decrease caregiver burden and improve functional transfers and mobility training. R26.2 Difficulty walking: PT will work on gait training and proper use of assistive devices and advance as appropriate to use of stairs and outside ambulation on uneven surfaces. R26.81 Unsteadiness on feet: PT will work on improving static and dynamic sitting and standing balance as well as proper use of assistive devices to decrease risk of falls. R26.89 Abnormality of gait: PT will work to improve safety and efficiency of gait through neuromotor training and gait training along with instruction on proper use of assistive devices. M62.81 Muscle weakness: PT & OT will work on strengthening exercises to improve functional strength including mixture of closed and open kinetic chain exercises. R53.81 Debility: PT & OT will work on improving overall functional status to improve participation with ADLs, mobility and social involvement. R53.83 Fatigue: PT & OT will work on improving endurance through aerobic exercises and therapeutic activity while monitoring patients tolerance for activity and vital signs as needed. Mood - slight breakdown this AM. Will continue to monitor for signs of interference with function. DVT ppx: heparin Pain: Continue physical modalities in therapy and pain medications as needed to achieve functional pain control. Sleep: Monitor and address as needed. Bowel: Monitor and address as needed. Appetite: Monitor and address as needed. Discharge planning: Pending therapy progress and care plan meeting. Will co ntinue discussion with therapy team, SW, patient and family. Restrictions/ Precautions: Falls WB status: FWB Functional Hx: ADLs: Independent Cognition: Needed assistance Mobility: Cane and w/c for distance Barriers to Discharge: Decreased mobility and ability to perform self care, balance deficits, weakness, cognition Estimated Length of Stay: 14-18 days Discharge Destination: Home with family
--- NOTE | 2019-03-02 16:34 | Progress Note ---
Assessment and Plan Assessment and plan: 78-year-old female with right foot pain present your found to have sepsis. Amputation was previously discussed for the right lower extremity gangrene however family refused. Patient had been undergoing treatment HBOT without resolution. ID was consulted and started antibiotics. Vascular surgery perfo rmed angiography. Afterwards she was scheduled for a right BKA which proceeded without incident. After the patient was medically stabilized they were transferred for further rehabilitation. 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 abdominal pain resolved, noted skin lesion at different stages-Chronic on further discussion with the patient and none puretic Hospitalist Physical - Physical exam Narrative exam: General appearance: Present: no acute distress, well-nourished, obese - EENT Eyes: Present: PERRL ENT: hearing intact, clear oral mucosa - Neck Neck: Present: supple, normal ROM - Respiratory Respiratory effort: normal Respiratory: bilateral: CTA - Cardiovascular Heart Sounds: Present: S1 & S2. Absent: rub, click - Extremities Extremities: pulses symmetrical, No edema Extremity abnormal: other (Rt BKA) Peripheral Pulses: within normal limits - Abdominal General gastrointestinal: Present: soft, non-tender, non-distended, normal bowel sounds Female genitourinary: Present: normal - Integumentary Integumentary: Present: multiple generalized skin lesion, warm, dry - Musculoskeletal Musculoskeletal: gait normal, strength equal bilaterally - Psychiatric Psychiatric: appropriate mood/affect, intact judgment & insight - Neurologic Neurologic: CNII-XII intact, moves all extremities - Constitutional Vitals: Temp Pulse Resp BP Pulse Ox 97.8 F 66 18 134/55 98 03/02/19 12:28 03/02/19 12:28 03/02/19 12:28 03/02/19 12:28 03/02/19 12:28 General appearance: Present: no acute distress, well-nourished Results - Labs CBC & Chem 7: 02/28/19 07:27 03/02/19 07:57 Labs: Laboratory Last Values WBC 6.3 K/mm3 (4.5-11.0) 02/28/19 07:27 RBC 3.32 M/mm3 (3.65-5.03) L 02/28/19 07:27 Hgb 8.0 gm/dl (10.1-14.3) L 02/28/19 07:27 Hct 25.8 % (30.3-42.9) L 02/28/19 07:27 MCV 78 fl (79-97) L 02/28/19 07:27 MCH 24 pg (28-32) L 02/28/19 07: MCHC 31 % (30-34) 02/28/19 07: RDW 22.3 % (13.2-15.2) H 02/28/19 07:27 Plt Count 494 K/mm3 (140-440) H 02/28/19 07:27 Lymph % (Auto) Router Setter 02/26/19 11:01 Ellis % (Auto) Router Setter 02/26/19 11:01 Eos % (Auto) Router Setter 02/26/19 11:01 Baso % (Auto) Router Setter 02/26/19 11:01 Lymph # Router Setter 02/26/19 11:01 Ellis # Router Setter 02/26/19 11:01 Eos # Router Setter 02/26/19 11:01 Baso # Router Setter 02/26/19 11:01 Add Manual Diff Complete 02/26/19 11:01 Total Counted 100 02/26/19 11:01 Seg Neutrophils % Router Setter 02/26/19 11:01 Seg Neuts % (Manual) 86.0 % (40.0-70.0) H 02/26/19 11:01 0 % 02/26/19 11:01 4.0 % (13.4-35.0) L 02/26/19 11:01 Reactive Lymphs % (Man) 0 % 02/26/19 11:01 9.0 % (0.0-7.3) H 02/26/19 11:01 1.0 % (0.0-4.3) 02/26/19 11:01 0 % (0.0-1.8) 02/26/19 11:01 0 % 02/26/19 11:01 0 % 02/26/19 11:01 0 % 02/26/19 11:01 0 % 02/26/19 11:01 Nucleated RBC % Not Reportable 02/26/19 11:01 Seg Neutrophils # Router Setter 02/26/19 11:01 Seg Neutrophils # Man 6.4 K/mm3 (1.8-7.7) 02/26/19 11:01 Band Neutrophils # 0.0 K/mm3 02/26/19 11:01 0.3 K/mm3 (1.2-5.4) L 02/26/19 11:01 Abs React Lymphs (Man) 0.0 K/mm3 02/26/19 11:01 0.7 K/mm3 (0.0-0.8) 02/26/19 11:01 0.1 K/mm3 (0.0-0.4) 02/26/19 11:01 0.0 K/mm3 (0.0-0.1) 02/26/19 11:01 0.0 K/mm3 02/26/19 11:01 0.0 K/mm3 02/26/19 11:01 0.0 K/mm3 02/26/19 11:01 Blast Cells # 0.0 K/mm3 02/26/19 11:01 WBC Morphology Not Reportable 02/26/19 11:01 Hypersegmented Neuts Not Reportable 02/26/19 11:01 Hyposegmented Neuts Not Reportable 02/26/19 11:01 Hypogranular Neuts Not Reportable 02/26/19 11:01 Not Reportable 02/26/19 11:01 Not Reportable 02/26/19 11:01 Not Reportable 02/26/19 11:01 Not Reportable 02/26/19 11:01 Not Reportable 02/26/19 11:01 Not Reportable 02/26/19 11:01 Consistent w auto 02/26/19 11:01 Not Reportable 02/26/19 11:01 Plt Clumps, EDTA Not Reportable 02/26/19 11:01 Not Reportable 02/26/19 11:01 Not Reportable 02/26/19 11:01 Not Reportable 02/26/19 11:01 Plt Morphology Comment Not Reportable 02/26/19 11:01 RBC Morphology Not Reportable 02/26/19 11:01 Dimorphic RBCs Not Reportable 02/26/19 11:01 Few 02/26/19 11:01 1+ 02/26/19 11:01 Not Reportable 02/26/19 11:01 1+ 02/26/19 11:01 Not Reportable 02/26/19 11:01 Not Reportable 02/26/19 11:01 Not Reportable 02/26/19 11:01 Not Reportable 02/26/19 11:01 Not Reportable 02/26/19 11:01 Few 02/26/19 11:01 Not Reportable 02/26/19 11:01 Few 02/26/19 11:01 Not Reportable 02/26/19 11:01 Not Reportable 02/26/19 11:01 Not Reportable 02/26/19 11:01 Not Reportable 02/26/19 11:01 Not Reportable 02/26/19 11:01 Not Reportable 02/26/19 11:01 Not Reportable 02/26/19 11:01 Acanthocytes (Spur) Not Reportable 02/26/19 11:01 Rouleaux Not Reportable 02/26/19 11:01 Not Reportable 02/26/19 11:01 Not Reportable 02/26/19 11:01 Not Reportable 02/26/19 11:01 Not Reportable 02/26/19 11:01 Hem Pathologist Commnt No 02/26/19 11:01 Sodium 134 mmol/L (137-145) L 02/28/19 07:27 Potassium 4.0 mmol/L (3.6-5.0) 02/28/19 07:27 Chloride 93.4 mmol/L (98-107) L 02/28/19 07:27 Carbon Dioxide 28 mmol/L (22-30) 02/28/19 07:27 17 mmol/L 02/28/19 07:27 BUN 33 mg/dL (7-17) H 02/28/19 07:27 4.9 mg/dL (0.7-1.2) H 02/28/19 07:27 Estimated GFR 10 ml/min 02/28/19 07:27 7 % 02/28/19 07:27 Glucose 185 mg/dL (65-100) H 03/02/19 07:57 POC Glucose 161 (70-105) H 03/02/19 11:33 Calcium 8.4 mg/dL (8.4-10.2) 02/28/19 07:27 0.40 mg/dL (0.1-1.2) 02/26/19 11:01 AST 32 units/L (5-40) 02/26/19 11:01 ALT 17 units/L (7-56) 02/26/19 11:01 382 units/L (35-129) H 02/26/19 11:01 5.7 g/dL (6.3-8.2) L 02/26/19 11:01 2.6 g/dL (3.9-5) L 02/26/19 11:01 0.8 % 02/26/19 11:01 Hepatitis A IgM Ab Non-reactive (NonReactive) 02/28/19 10:48 Hep Bs Antigen Non-reactive (Negative) 02/28/19 10:48 Hep B Core IgM Ab Non-reactive (NonReactive) 02/28/19 10:48 Non-reactive (NonReactive) 02/28/19 10:48 Active Medications - Current Medications Current Medications: Generic Name Dose Route Start Last Admin Trade Name Freq PRN Reason Stop Dose Admin Albuterol 2.5 mg 02/25/19 18:39 Proventil IH Q4HRT PRN Shortness Of Breath Amlodipine Besylate 5 mg 02/26/19 08:00 03/02/19 12:59 Norvasc PO 5 mg QDAY JUAQUIN Administration Aspirin 81 mg 02/26/19 08:00 03/02/19 09:17 Halfprin Ec PO 81 mg QDAY JUAQUIN Administration Calcium Acetate 667 mg 02/26/19 07:30 03/02/19 12:17 Phoslo PO 667 mg AC JUAQUNI Administration Clopidogrel Bisulfate 75 mg 02/26/19 08:00 03/02/19 09:16 Plavix PO 75 mg QDAY JUAQUIN Administration Dextrose 50 ml 02/25/19 18:31 03/02/19 07:46 D50w (25gm) Syringe IV 50 ml PRN PRN Administration Hypoglycemia Diphenhydramine HCl 25 mg 02/25/19 18:39 02/27/19 18:16 Benadryl PO 25 mg Q6H PRN Administration Itching Ezetimibe 10 mg 02/25/19 22:00 03/01/19 22:00 Zetia PO 10 mg HS JUAQUIN Administration Epoetin [place] 10,000 unit 02/26/19 13:00 02/26/19 17:58 Procrit IV 10,000 unit ANNI JUAQUIN Administration Famotidine 10 mg 02/25/19 22:00 03/02/19 09:17 Pepcid PO 10 mg BID JUAQUIN Administration Heparin Sodium (Porcine) 5,000 unit 02/25/19 22:00 03/02/19 13:09 Heparin SUB-Q 5,000 unit Q8HR JUAQUIN Administration Vancomycin HCl 1 gm in 250 mls @ 166.667 mls/hr 02/26/19 18:00 03/01/19 21:50 Vancomycin/Ns 1 Gm/250 Ml IV 03/24/19 19:29 Infused TuThSa@1800 JUAQUIN Infusion Sodium Chloride 100 mls @ 999 mls/hr 02/26/19 12:30 Nacl 0.9% IV ANNI PRN Hypotension Insulin Human Isoph/Insulin Regular 10 unit 03/02/19 11:18 Humulin 70/30 SUB-Q BIDDIAB JUAQUIN Insulin Human Lispro 0 unit 02/25/19 21:00 03/01/19 22:00 Humalog SUB-Q 4 unit QHS [facility] Administration Protocol Levothyroxine Sodium 50 mcg 02/26/19 06:00 03/02/19 05:37 Synthroid PO 50 mcg DAILY@0600 [facility] Administration Multivit/Ca Carb/B Cmplx/FA/Prenat 1 cap 02/27/19 08:00 03/02/19 09:17 Renal Caps PO 1 cap QDAY [facility] Administration Oxycodone/Acetaminophen 1 tab 02/25/19 18:39 03/01/19 19:13 Percocet 5/325 PO 1 tab Q6H PRN Administration Pain, Moderate (4-6) Pravastatin Sodium 40 mg 02/25/19 21:00 03/01/19 22:00 Pravachol PO 40 mg QHS JUAQUIN Administration Pregabalin 75 mg 02/25/19 22:00 03/01/19 21:59 Lyrica PO 75 mg HS JUAQUIN Administration Simethicone 80 mg 02/28/19 10:11 02/28/19 11:25 Mylicon PO 80 mg Q6H PRN Administration Gas pain Sodium Polystyrene Sulfonate 15 gm 02/25/19 18:39 Kionex PO Q6HR PRN Hyperkalemia
[2019-03-02] MEDS: PERCOCET 5/325 PO PRN (19:08)
[2019-03-02] MEDS: LYRICA PO SCH (22:06)
[2019-03-02] MEDS: ZETIA PO SCH (22:06)
[2019-03-02] MEDS: PRAVACHOL PO SCH (22:07)
[2019-03-02] MEDS: HumaLOG SUB-Q SCH (22:21)
[2019-03-03] MEDS: HEPARIN SUB-Q SCH ×3 (06:39→21:13)
[2019-03-03] MEDS: SYNTHROID PO SCH (06:39)
[2019-03-03] MEDS: PHOSLO PO SCH ×3 (08:13→17:46)
[2019-03-03] MEDS: Renal Caps PO SCH (08:13)
[2019-03-03] MEDS: PEPCID PO SCH ×2 (08:13→21:14)
[2019-03-03] MEDS: NORVASC PO SCH (08:13)
[2019-03-03] MEDS: PLAVIX PO SCH (08:13)
[2019-03-03] MEDS: HALFPRIN EC PO SCH (08:13)
--- NOTE | 2019-03-03 10:32 | Progress Note ---
Subjective Date of service: 03/03/19 Principal diagnosis: R BKA Interval history: 78-year-old female with right foot pain presented to ER and found to have sepsis. Amputation was previously discussed for the right lower extremity gangrene however family refused. Patient had been undergoing treatment HBOT without resolution. ID was consulted and started antibiotics. Vascular surgery performed angiography. Afterwards she was scheduled for a right BKA which proceeded without incident. After the patient was medically stabilized they were transferred for further rehabilitation. All available medical records have been reviewed. Plan of care was discussed with patient and family. Patient is participating in therapy and making reasonable progress. Taking rest breaks as needed. +BM. Denies pain, palpitations, dyspnea, cough, N/V, or joint pain. GLU improving. She does note that she has some phantom sensation but no overt phantom pain. Making some progress with w/c push ups but very weak overall in the triceps. Continue therapy as planned. Will need to see surgeon on 03/10/2019 for follow up. Discussed in team conference. Noted that she has decreased cognition. I have previously discussed with family that this appears consistent with early stages of dementia, but they denied any knowledge of a dementia diagnosis. Still having difficulty with standing but improving. She will need a wheelchair at discharge and will likely not progress past being a K1 ambulator. All records, vitals, labs and medications were reviewed. No other issues per patient, nursing or therapy. Objective - Exam Narrative Exam: MUSCULOSKELETAL SPECIALTY EXAM CONSTITUTIONAL: Well developed, well nourished, appropriately groomed EENT: Legally blind. Oropharynx clear. Hearing mostly intact to normal voice RESPIRATORY: Clear to auscultation bilaterally, no increased work of breathing. Supplemental O2 CARDIOVASCULAR: Regular Rate/ Rhythm, no swelling, edema or tenderness in BUE or BLE. Pulses palpable in all extremities. All extremities warm. Thrill in LUE GI: + bowel sounds, soft, NTTP, nondistended. INTEGUMENTARY: Normal, no lesion, rash, masses or bruising noted in extremities. Surgical wound on right lower extremity is healing well MUSCULOSKELETAL: Right BKA, otherwise BUE and BLE normal without defect, crepitus, subluxation, effusion, arthritic changes or TTP. BUE 4/5, good ROM, with normal tone. LLE 4-/5 good ROM, with normal tone, RLE decreased ROM secondary to pain NEURO: CN 2-12 grossly intact. Sensation intact in all extremities. No tremor noted in 4 extremities. POSTURE and GAIT: Sitting posture good. Balance appears reasonable. Gait deferred, based on standing performance she may not be able to ambulate with just a walker without prosthesis.. PSYCH: Alert, orientated x2, slightly confused at times and decreased memory, affect appears normal. - Constitutional Vitals: Vital Signs - 12hr 03/03/19 07:33 Temperature 36.8 C Pulse Rate 62 Respiratory 18 Rate Blood Pressure 133/52 O2 Sat by Pulse 99 Oximetry - Allied health notes Allied health notes reviewed: nursing, PT, ST, OT FIMS assessment as documented by PT/OT/ST: Grooming Patient cleans teeth/dentures: Yes Patient holguin/brushes hair: Yes Patient washes, rinses and Yes dries face: Patient washes, rinses and Yes dries hands: Patient shaves: No Patient applies make-up: No Patient performs (no make-up/ 12/04 (100%) shaving): Grooming FIM Score 4. Minimal Assistance (Patient = 75% or more. Needs touching.) Toileting Toileting Device Bedpan Toileting FIM Score 2. Maximal Assistance (Patient = 25% or more) Social interaction/Memory/Problem solving Social Interaction FIM Score 7. Complete [place] (Interacts appropriately. Controls temper.) Memory FIM Score 4. Minimal Assistance (Recognizes and remembers 75-90%.) Problem Solving FIM Score 4. Minimal Assistance (Solves routine problems 75-90%.) Transfers Mode of Locomotion: Wheelchair Bed/Chair/Wheelchair Transfers 3. Moderate Assistance (Patient = 50% or more. FIM Score Some lifting.) Toilet Transfers FIM Score 1. Total Assistance (Patient less than 25%. 2 or more persons.) Patient transferred to: Shower Shower Transfers FIM Score 1. Total Assistance (Patient less than 25%. 2 or more persons.) Locomotion- Stairs Stairs FIM Score 0. Activity does not occur Locomotion- walk/wheelchair Most Frequent Mode of Wheelchair Locomotion: Walking FIM Score 0. Activity does not occur Wheelchair Propulsion Distance 200 Wheelchair FIM Score 4. Minimal Assistance (Patient = 75% or more. Minimum of 150 ft.) Eating Eating FIM Score 7. Complete [place] (Cuts meat, opens containers, regular diet.) Dressing-Upper body Patient retrieves clothing No items: Patient applies/removes UE No: n/a prosthesis or orthosis: Upper Body Dressing FIM Score 4. Minimal Assistance (Patient = 75% or more. Needs touching.) Dressing-lower body Patient retrieves clothing No items: Patient applies/removes LE No: n/a prosthesis or orthosis: Lower Body Dressing FIM Score 2. Maximal Assistance (Patient = 25% or more) - Labs CBC & Chem 7: 02/28/19 07:27 03/02/19 07:57 Labs: Laboratory Results - last 72 hr 02/28/19 02/28/19 02/28/19 10:48 12:16 16:25 Glucose POC Glucose 219 H 261 H Random Vancomycin Hepatitis A IgM Ab Non-reactive Hep Bs Antigen Non-reactive Hep B Core IgM Ab Non-reactive Hepatitis C Antibody Non-reactive 02/28/19 03/01/19 03/01/19 21:42 10:57 18:42 Glucose POC Glucose 343 H 274 H 349 H Random Vancomycin Hepatitis A IgM Ab Hep Bs Antigen Hep B Core IgM Ab Hepatitis C Antibody 03/01/19 03/02/19 03/02/19 21:15 07:46 07:57 Glucose 185 H POC Glucose 330 H < 40 L Random Vancomycin Hepatitis A IgM Ab Hep Bs Antigen Hep B Core IgM Ab Hepatitis C Antibody 03/02/19 03/02/19 03/02/19 08:19 11:33 16:48 Glucose POC Glucose 156 H 161 H 297 H Random Vancomycin Hepatitis A IgM Ab Hep Bs Antigen Hep B Core IgM Ab Hepatitis C Antibody 03/02/19 03/03/19 03/03/19 21:10 06:35 07:35 Glucose POC Glucose 250 H 99 Random Vancomycin 27.9 Hepatitis A IgM Ab Hep Bs Antigen Hep B Core IgM Ab Hepatitis C Antibody Assessment and Plan R BKA: Will likely be a K1 ambulator, K2 not likely in reach at this point. After speaking with daughter, patient will most likely remain K1. Monitor wound. On isolation for MRSA in Blood with 4 weeks vancomycin during dialysis (03/19/2019 per ID notes). Continue to work on transfers and mobility. Monitor for phantom sensation/pain. Discussed prosthesis. Last blood culture was negative and patient remains on antibiotics with no excessive drainage from the wound. GILBERTO: Cont CPAP HTN: Monitor BP and adjust meds for normotension DM: Carb controlled diet. Monitor glucose. SSI. Insulin adjusted by IM Decreased memory: MILK INSPECTOR to assess cognitive function Hypothyroidism: Continue medication Z73.6 ADL dysfunction: OT will work on improving ability to perform ADLs (including assistive devices) to increase independence and decrease caregiver burden and improve functional transfers and mobility training. R26.2 Difficulty walking: PT will work on gait training and proper use of assistive devices and advance as appropriate to use of stairs and outside ambulation on uneven surfaces. R26.81 Unsteadiness on feet: PT will work on improving static and dynamic sitting and standing balance as well as proper use of assistive devices to decrease risk of falls. R26.89 Abnormality of gait: PT will work to improve safety and efficiency of gait through neuromotor training and gait training along with instruction on proper use of assistive devices. M62.81 Muscle weakness: PT & OT will work on strengthening exercises to improve functional strength including mixture of closed and open kinetic chain exercises. R53.81 Debility: PT & OT will work on improving overall functional status to improve participation with ADLs, mobility and social involvement. R53.83 Fatigue: PT & OT will work on improving endurance through aerobic exercises and therapeutic activity while monitoring patients tolerance for activity and vital signs as needed. Mood - slight breakdown with therapy. Will continue to monitor for signs of interference with function. DVT ppx: heparin Pain: Continue physical modalities in therapy and pain medications as needed to achieve functional pain control. Sleep: Monitor and address as needed. Bowel: Monitor and address as needed. Appetite: Monitor and address as needed. Discharge planning: Pending therapy progress and care plan meeting. Will continue discussion with therapy team, SW, patient and family. Restrictions/ Precautions: Falls WB status: FWB Functional Hx: ADLs: Independent Cognition: Needed assistance Mobility: Cane and w/c for distance Barriers to Discharge: Decreased mobility and ability to perform self care, balance deficits, weakness, cognition Estimated Length of Stay: 14-18 days Discharge Destination: Home with family with supervision
--- NOTE | 2019-03-03 11:25 | Progress Note ---
Assessment and Plan 1. ESRD: Continue hemodialysis three times a week, TTS schedule. 2. Anemia: S/p PRBC. Epogen with HD. 3. PAD: S/p R LE angioplasty and R BKA. 4. GILBERTO: CPAP. 5. DM type 2. 6. HTN: BP well controlled. In Acute rehab unit. Subjective Date of service: 03/03/19 Principal diagnosis: R BKA Interval history: Patient was seen and examined at the chairside. Doing ok. Objective - Vital Signs Vital signs: Vital Signs - 12hr 03/03/19 07:33 Temperature 98.3 F Pulse Rate 62 Respiratory 18 Rate Blood Pressure 133/52 O2 Sat by Pulse 99 Oximetry - General Appearance General appearance: well-developed, well-nourished, appears stated age, other (no distress) EENT: ATNC, PERRL, hearing diminished Neck: supple Respiratory: Present: Clear to Ascultation Cardiology: regular, S1S2, no murmurs Gastrointestinal: normal, no tenderness, no distended Integumentary: no rash, warm and dry Neurologic: no asterixis, other (able to move extremities) Musculoskeletal: other (R BKA, no edema, L arm AVF) Psychiatric: cooperative - Lab 02/28/19 07:27 03/02/19 07:57 Most recent lab results Calcium 8.4 mg/dL (8.4-10.2) 02/28/19 07:27 Medications & Allergies - Medications Allergies/Adverse Reactions: Allergies Iodinated Contrast- Oral and IV Dye Allergy (Verified 11/25/18 15:48) Hives, Rash Penicillins Allergy (Verified 11/25/18 15:48) Hives Home Medications: Home Medications Medication Instructions Recorded Confirmed Last Taken Type B Complex 11/Folic/C/Biot/Zinc 1 each PO DAILY 09/06/15 02/25/19 11/25/18 20:00 History [Dialyvite with Zinc Tablet] Lispro Insulin [HumaLOG] 7 unit SQ AC 11/25/18 02/25/19 Unknown History Pantoprazole Sodium 40 mg PO DAILY 11/25/18 02/25/19 11/26/18 05:00 History amLODIPine [Norvasc] 5 mg PO DAILY 11/25/18 02/25/19 11/28/18 History 2.5 Ranitidine HCl [Zantac] 300 mg PO BID 02/16/19 02/25/19 Unknown History Calcium Acetate 667 mg PO AC 02/18/19 02/25/19 Unknown History Levothyroxine 0.05 mg PO QDAY 02/18/19 02/25/19 Unknown History Lyrica 75 mg PO HS 02/18/19 02/25/19 Unknown History Pravastatin 40 mg PO HS 02/18/19 02/25/19 Unknown History Zetia 10 mg PO HS 02/18/19 02/25/19 Unknown History Aspirin EC 81 mg PO QDAY #30 tablet 02/25/19 02/25/19 Unknown Rx Clopidogrel [Plavix] 75 mg PO QDAY #30 tablet 02/25/19 02/25/19 Unknown Rx oxyCODONE /ACETAMINOPHEN [Percocet 1 tab PO Q6H PRN #14 tablet 02/25/19 02/25/19 Unknown Rx 5/325 mg] Active Medications: Generic Name Dose Route Start Last Admin Trade Name Freq PRN Reason Stop Dose Admin Albuterol 2.5 mg 02/25/19 18:39 Proventil IH Q4HRT PRN Shortness Of Breath Amlodipine Besylate 5 mg 02/26/19 08:00 03/03/19 08:13 Norvasc PO 5 mg QDAY JUAQUIN Administration Aspirin 81 mg 02/26/19 08:00 03/03/19 08:13 Halfprin Ec PO 81 mg QDAY JUAQUIN Administration Calcium Acetate 667 mg 02/26/19 07:30 03/03/19 08:13 Phoslo PO 667 mg AC JUAQUIN Administration Clopidogrel Bisulfate 75 mg 02/26/19 08:00 03/03/19 08:13 Plavix PO 75 mg QDAY JUAQUIN Administration Dextrose 50 ml 02/25/19 18:31 03/02/19 07:46 D50w (25gm) Syringe IV 50 ml PRN PRN Administration Hypoglycemia Diphenhydramine HCl 25 mg 02/25/19 18:39 02/27/19 18:16 Benadryl PO 25 mg Q6H PRN Administration Itching Ezetimibe 10 mg 02/25/19 22:00 03/02/19 22:06 Zetia PO 10 mg HS JUAQUIN Administration Epoetin [place] 10,000 unit 02/26/19 13:00 02/26/19 17:58 Procrit IV 10,000 unit ANNI JUAQUIN Administration Famotidine 10 mg 02/25/19 22:00 03/03/19 08:13 Pepcid PO 10 mg BID JUAQUIN Administration Heparin Sodium (Porcine) 5,000 unit 02/25/19 22:00 03/03/19 06:39 Heparin SUB-Q 5,000 unit Q8HR JUAQUIN Administration Sodium Chloride 100 mls @ 999 mls/hr 02/26/19 12:30 Nacl 0.9% IV ANNI PRN Hypotension Vancomycin HCl 750 mg/ Sodium 265 mls @ 166.667 mls/hr 03/05/19 18:00 Chloride IV 03/19/19 19:36 TuThSa@1800 JUAQUIN Insulin Human Isoph/Insulin Regular 10 unit 03/02/19 11:18 03/03/19 08:15 Humulin 70/30 SUB-Q 10 unit BIDDIAB JUAQUIN Administration Insulin Human Lispro 0 unit 02/25/19 21:00 03/02/19 22:21 Humalog SUB-Q 3 unit QHS JUAQUIN Administration Protocol Levothyroxine Sodium 50 mcg 02/26/19 06:00 03/03/19 06:39 Synthroid PO 50 mcg DAILY@0600 [facility] Administration Multivit/Ca Carb/B Cmplx/FA/Prenat 1 cap 02/27/19 08:00 03/03/19 08:13 Renal Caps PO 1 cap QDAY JUAQUIN Administration Oxycodone/Acetaminophen 1 tab 02/25/19 18:39 03/02/19 19:08 Percocet 5/325 PO 1 tab Q6H PRN Administration Pain, Moderate (4-6) Pravastatin Sodium 40 mg 02/25/19 21:00 03/02/19 22:07 Pravachol PO 40 mg QHS JUAQUIN Administration Pregabalin 75 mg 02/25/19 22:00 03/02/19 22:06 Lyrica PO 75 mg HS JUAQUIN Administration Simethicone 80 mg 02/28/19 10:11 02/28/19 11:25 Mylicon PO 80 mg Q6H PRN Administration Gas pain Sodium Polystyrene Sulfonate 15 gm 02/25/19 18:39 Kionex PO Q6HR PRN Hyperkalemia
[2019-03-03] MEDS: PERCOCET 5/325 PO PRN (13:20)
--- NOTE | 2019-03-03 16:06 | Progress Note ---
Assessment and Plan Assessment and plan: Hospitalist instructional design consultant for DM in the Inpatient Rehab unit of [facility] Patient is a 78-year-old woman with a history of PVD, DM type 2, ESRD on hemodialysis, GERD, CVA, heart failure, hypertension, hypothyroidism, legally blind and GILBERTO who presented to [facility] inpatient rehab unit following right leg BKA. Hospitalist consulted and following for uncontrolled DM. DM Type 2 with hyperglycemia: Continue NPH, adjusted SSI monitor GILBERTO ON CPAP: Stable GERD: Famotidine ESRD: Continue HD, Nephrology following Right foot gangrene with severe PVD s/p BKA: Continue rehab, PT, OT HTN, controlled: low salt diet and treat with antihypertensives HX OF CVA: continue plavix, continue statin, ZETIA Hyperlipidemia: statin Hypothyrodisim: CONTINUE SYNTHROID Anemia: Monitor, on epogin DVT/GI prophylaxis History Interval history: Patient was seen and examined. Follow-up on current diagnosis. No overnight events reported to me. Patient denies any chest pain, shortness breath, nausea/vomiting or severe headaches. Imaging, nursing note, chart, labs and old chart reviewed. Discussed with patient. Gen: WDWN, NAD, Awake, Alert, Orientated HEENT: NCAT, EOMI, PERRL, OP Clear Neck: supple, no adenopathy, no thyromegaly, no JVD CVS/Heart: RRR, normal S1S2, pulses present bilaterally Chest/Lungs: CTA B, Symmetrical chest expansion, good air entry bilaterally GI/Abdomen: soft, NTND, good bowel sounds, no guarding or rebound /Bladder: no suprapubic tenderness, no CVA or paraspinal tenderness Extermity/Skin: no c/c/e, no obvious rash MSK: FROM x 4 Neuro: CN 2-12 grossly intact, no new focal deficits Psych: calm Hospitalist Physical - Constitutional Vitals: Temp Pulse Resp BP Pulse Ox 97.9 F 77 18 129/54 96 03/03/19 11:30 03/03/19 11:30 03/03/19 11:30 03/03/19 11:30 03/03/19 11:30 General appearance: Present: no acute distress, well-nourished Results - Labs CBC & Chem 7: 02/28/19 07:27 03/02/19 07:57 Labs: Laboratory Last Values WBC 6.3 K/mm3 (4.5-11.0) 02/28/19 07:27 RBC 3.32 M/mm3 (3.65-5.03) L 02/28/19 07:27 Hgb 8.0 gm/dl (10.1-14.3) L 02/28/19 07:27 Hct 25.8 % (30.3-42.9) L 02/28/19 07: MCV 78 fl (79-97) L 02/28/19 07:27 MCH 24 pg (28-32) L 02/28/19 07: MCHC 31 % (30-34) 02/28/19 07: RDW 22.3 % (13.2-15.2) H 02/28/19 07:27 Plt Count 494 K/mm3 (140-440) H 02/28/19 07:27 Lymph % (Auto) [employer] Server Dba Developer 02/26/19 11:01 [place] % (Auto) [employer] Dba Developer 02/26/19 11:01 Eos % (Auto) [employer] Developer 02/26/19 11:01 Baso % (Auto) [employer] Developer 02/26/19 11:01 Lymph # [employer] Developer 02/26/19 11:01 [place] # [employer] Developer 02/26/19 11:01 Eos # [employer] D[employer] Developer 02/26/19 11:01 Baso # [employer] Developer 02/26/19 11:01 Add Manual Diff Complete 02/26/19 11:01 Total Counted 100 02/26/19 11:01 Seg Neutrophils % [employer] Developer 02/26/19 11:01 Seg Neuts % (Manual) 86.0 % (40.0-70.0) H 02/26/19 11:01 0 % 02/26/19 11:01 4.0 % (13.4-35.0) L 02/26/19 11:01 Reactive Lymphs % (Man) 0 % 02/26/19 11:01 9.0 % (0.0-7.3) H 02/26/19 11:01 1.0 % (0.0-4.3) 02/26/19 11:01 0 % (0.0-1.8) 02/26/19 11:01 0 % 02/26/19 11:01 0 % 02/26/19 11:01 0 % 02/26/19 11:01 0 % 02/26/19 11:01 Nucleated RBC % Not Reportable 02/26/19 11:01 Seg Neutrophils # [employer] Dba Developer 02/26/19 11:01 Seg Neutrophils # Man 6.4 K/mm3 (1.8-7.7) 02/26/19 11:01 Band Neutrophils # 0.0 K/mm3 02/26/19 11:01 0.3 K/mm3 (1.2-5.4) L 02/26/19 11:01 Abs React Lymphs (Man) 0.0 K/mm3 02/26/19 11:01 0.7 K/mm3 (0.0-0.8) 02/26/19 11:01 0.1 K/mm3 (0.0-0.4) 02/26/19 11:01 0.0 K/mm3 (0.0-0.1) 02/26/19 11:01 0.0 K/mm3 02/26/19 11:01 0.0 K/mm3 02/26/19 11:01 0.0 K/mm3 02/26/19 11:01 Blast Cells # 0.0 K/mm3 02/26/19 11:01 WBC Morphology Not Reportable 02/26/19 11:01 Hypersegmented Neuts Not Reportable 02/26/19 11:01 Hyposegmented Neuts Not Reportable 02/26/19 11:01 Hypogranular Neuts Not Reportable 02/26/19 11:01 Not Reportable 02/26/19 11:01 Not Reportable 02/26/19 11:01 Not Reportable 02/26/19 11:01 Not Reportable 02/26/19 11:01 Not Reportable 02/26/19 11:01 Not Reportable 02/26/19 11:01 Consistent w auto 02/26/19 11:01 Not Reportable 02/26/19 11:01 Plt Clumps, EDTA Not Reportable 02/26/19 11:01 Not Reportable 02/26/19 11:01 Not Reportable 02/26/19 11:01 Not Reportable 02/26/19 11:01 Plt Morphology Comment Not Reportable 02/26/19 11:01 RBC Morphology Not Reportable 02/26/19 11:01 Dimorphic RBCs Not Reportable 02/26/19 11:01 Few 02/26/19 11:01 1+ 02/26/19 11:01 Not Reportable 02/26/19 11:01 1+ 02/26/19 11:01 Not Reportable 02/26/19 11:01 Not Reportable 02/26/19 11:01 Not Reportable 02/26/19 11:01 Not Reportable 02/26/19 11:01 Not Reportable 02/26/19 11:01 Few 02/26/19 11:01 Not Reportable 02/26/19 11:01 Few 02/26/19 11:01 Not Reportable 02/26/19 11:01 Not Reportable 02/26/19 11:01 Not Reportable 02/26/19 11:01 Not Reportable 02/26/19 11:01 Not Reportable 02/26/19 11:01 Not Reportable 02/26/19 11:01 Not Reportable 02/26/19 11:01 Acanthocytes (Spur) Not Reportable 02/26/19 11:01 Rouleaux Not Reportable 02/26/19 11:01 Not Reportable 02/26/19 11:01 Not Reportable 02/26/19 11:01 Not Reportable 02/26/19 11:01 Not Reportable 02/26/19 11:01 Hem Pathologist Commnt No 02/26/19 11:01 Sodium 134 mmol/L (137-145) L 02/28/19 07:27 Potassium 4.0 mmol/L (3.6-5.0) 02/28/19 07:27 Chloride 93.4 mmol/L (98-107) L 02/28/19 07:27 Carbon Dioxide 28 mmol/L (22-30) 02/28/19 07:27 17 mmol/L 02/28/19 07:27 BUN 33 mg/dL (7-17) H 02/28/19 07:27 4.9 mg/dL (0.7-1.2) H 02/28/19 07:27 Estimated GFR 10 ml/min 02/28/19 07:27 7 % 02/28/19 07:27 Glucose 185 mg/dL (65-100) H 03/02/19 07:57 POC Glucose 99 (70-105) 03/03/19 07:35 Calcium 8.4 mg/dL (8.4-10.2) 02/28/19 07:27 0.40 mg/dL (0.1-1.2) 02/26/19 11:01 AST 32 units/L (5-40) 02/26/19 11:01 ALT 17 units/L (7-56) 02/26/19 11:01 382 units/L (35-129) H 02/26/19 11:01 5.7 g/dL (6.3-8.2) L 02/26/19 11:01 2.6 g/dL (3.9-5) L 02/26/19 11:01 0.8 % 02/26/19 11:01 Random Vancomycin 27.9 ug/mL (0-40.0) 03/03/19 06:35 Hepatitis A IgM Ab Non-reactive (NonReactive) 02/28/19 10:48 Hep Bs Antigen Non-reactive (Negative) 02/28/19 10:48 Hep B Core IgM Ab Non-reactive (NonReactive) 02/28/19 10:48 Non-reactive (NonReactive) 02/28/19 10:48 Active Medications - Current Medications Current Medications: Generic Name Dose Route Start Last Admin Trade Name Freq PRN Reason Stop Dose Admin Albuterol 2.5 mg 02/25/19 18:39 Proventil IH Q4HRT PRN Shortness Of Breath Amlodipine Besylate 5 mg 02/26/19 08:00 03/03/19 08:13 Norvasc PO 5 mg QDAY JUAQUIN Administration Aspirin 81 mg 02/26/19 08:00 03/03/19 08:13 Halfprin Ec PO 81 mg QDAY JUAQUIN Administration Calcium Acetate 667 mg 02/26/19 07:30 03/03/19 08:13 Phoslo PO 667 mg AC JUAQUIN Administration Clopidogrel Bisulfate 75 mg 02/26/19 08:00 03/03/19 08:13 Plavix PO 75 mg QDAY JUAQUIN Administration Diphenhydramine HCl 25 mg 02/25/19 18:39 02/27/19 18:16 Benadryl PO 25 mg Q6H PRN Administration Itching Ezetimibe 10 mg 02/25/19 22:00 03/02/19 22:06 Zetia PO 10 mg HS JUAQUIN Administration Epoetin [place] 10,000 unit 02/26/19 13:00 02/26/19 17:58 Procrit IV 10,000 unit ANNI JUAQUIN Administration Famotidine 10 mg 02/25/19 22:00 03/03/19 08:13 Pepcid PO 10 mg BID JUAQUIN Administration Heparin Sodium (Porcine) 5,000 unit 02/25/19 22:00 03/03/19 06:39 Heparin SUB-Q 5,000 unit Q8HR JUAQUIN Administration Sodium Chloride 100 mls @ 999 mls/hr 02/26/19 12:30 Nacl 0.9% IV ANNI PRN Hypotension Vancomycin HCl 750 mg/ Sodium 265 mls @ 166.667 mls/hr 03/05/19 18:00 Chloride IV 03/19/19 19:36 [email or web address] [facility] Insulin Human Isoph/Insulin Regular 10 unit 03/02/19 11:18 03/03/19 08:15 Humulin 70/30 SUB-Q 10 unit BIDDIAB JUAQUIN Administration Levothyroxine Sodium 50 mcg 02/26/19 06:00 03/03/19 06:39 Synthroid PO 50 mcg DAILY@0600 [facility] Administration Multivit/Ca Carb/B Cmplx/FA/Prenat 1 cap 02/27/19 08:00 03/03/19 08:13 Renal Caps PO 1 cap QDAY [facility] Administration Oxycodone/Acetaminophen 1 tab 02/25/19 18:39 03/03/19 13:20 Percocet 5/325 PO 1 tab Q6H PRN Administration Pain, Moderate (4-6) Pravastatin Sodium 40 mg 02/25/19 21:00 03/02/19 22:07 Pravachol PO 40 mg QHS JUAQUIN Administration Pregabalin 75 mg 02/25/19 22:00 03/02/19 22:06 Lyrica PO 75 mg HS JUAQUIN Administration Simethicone 80 mg 02/28/19 10:11 02/28/19 11:25 Mylicon PO 80 mg Q6H PRN Administration Gas pain Sodium Polystyrene Sulfonate 15 gm 02/25/19 18:39 Kionex PO Q6HR PRN Hyperkalemia
[2019-03-03] MEDS: HumaLOG SUB-Q SCH ×2 (16:46→21:14)
[2019-03-03] MEDS: LYRICA PO SCH (21:14)
[2019-03-03] MEDS: PRAVACHOL PO SCH (21:14)
[2019-03-03] MEDS: ZETIA PO SCH (21:14)
[2019-03-04] MEDS: HEPARIN SUB-Q SCH ×3 (06:16→21:48)
[2019-03-04] MEDS: SYNTHROID PO SCH (06:16)
[2019-03-04] MEDS: HumaLOG SUB-Q SCH ×4 (07:43→23:49)
[2019-03-04] MEDS: PLAVIX PO SCH (08:37)
[2019-03-04] MEDS: HALFPRIN EC PO SCH (08:37)
[2019-03-04] MEDS: PEPCID PO SCH ×2 (08:37→21:48)
[2019-03-04] MEDS: PHOSLO PO SCH ×3 (08:37→17:49)
[2019-03-04] MEDS: Renal Caps PO SCH (08:37)
[2019-03-04] MEDS: NORVASC PO SCH (08:38)
[2019-03-04 09:26] LABS: Hemoglobin 8.4 gm/dl (10.1-14.3); Mean Corpuscular HGB Conc 31 % (30-34); Mean Corpuscular Volume 78 fl (79-97); Platelet Count 450 K/mm3 (140-440); Red Blood Count 3.47 M/mm3 (3.65-5.03)
[2019-03-04 09:27] LABS: Red Cell Distribution Width 23.1 % (13.2-15.2)
[2019-03-04 09:45] LABS: Calcium 8.6 mg/dL (8.4-10.2)
--- NOTE | 2019-03-04 12:30 | Progress Note ---
Subjective Date of service: 03/04/19 Principal diagnosis: R BKA Interval history: 78-year-old female with right foot pain presented to ER and found to have sepsis. Amputation was previously discussed for the right lower extremity gangrene however family refused. Patient had been undergoing treatment HBOT without resolution. ID was consulted and started antibiotics. Vascular surgery performed angiography. Afterwards she was scheduled for a right BKA which proceeded without incident. After the patient was medically stabilized they were transferred for further rehabilitation. All available medical records have been reviewed. Plan of care was discussed with patient and family. Patient is participating in therapy and making reasonable progress. Taking rest breaks as needed. +BM. Denies pain, palpitations, dyspnea, cough, N/V, or joint pain. GLU improving. She does note that she has some phantom sensation but no overt phantom pain. Standing with therapy and assistance for short period, SBT. Continue therapy as planned. No signs of infection, continues vanc on dialysis days. Will need to see surgeon on 03/10/2019 for follow up. All records, vitals, labs and medications were reviewed. No other issues per patient, nursing or therapy. Objective - Exam Narrative Exam: MUSCULOSKELETAL SPECIALTY EXAM CONSTITUTIONAL: Well developed, well nourished, appropriately groomed EENT: Legally blind. Oropharynx clear. Hearing mostly intact to normal voice RESPIRATORY: Clear to auscultation bilaterally, no increased work of breathing. Supplemental O2 CARDIOVASCULAR: Regular Rate/ Rhythm, no swelling, edema or tenderness in BUE or BLE. Pulses palpable in all extremities. All extremities warm. Thrill in LUE GI: + bowel sounds, soft, NTTP, nondistended. INTEGUMENTARY: LLE has blisters which have improved with decrease in edema. Otherwise, normal, no lesion, rash, masses or bruising noted in extremities. Surgical wound on right lower extremity is healing well MUSCULOSKELETAL: Right BKA, otherwise BUE and BLE normal without defect, crepitus, subluxation, effusion, arthritic changes or TTP. BUE 4/5, good ROM, with normal tone. LLE 4-/5 good ROM, with normal tone, RLE decreased ROM secondary to pain NEURO: CN 2-12 grossly intact. Sensation intact in all extremities. No tremor noted in 4 extremities. POSTURE and GAIT: Sitting posture good. Balance appears reasonable. Gait deferred, based on standing performance she may not be able to ambulate with just a walker without prosthesis.. PSYCH: Alert, orientated x2, slightly confused at times and decreased memory, affect appears normal. - Constitutional Vitals: Vital Signs - 12hr 03/04/19 03/04/19 03/04/19 05:03 07:00 08:38 Temperature 36.7 C 36.4 C L Pulse Rate 74 69 69 Respiratory 20 20 Rate Blood Pressure 138/63 158/62 Blood Pressure 158/62 [Right] O2 Sat by Pulse 95 94 Oximetry - Breasts Breasts: - Allied health notes Allied health notes reviewed: nursing, PT, ST, OT FIMS assessment as documented by PT/OT/ST: Grooming Patient cleans teeth/dentures: Yes Patient holguin/brushes hair: Yes Patient washes, rinses and Yes dries face: Patient washes, rinses and Yes dries hands: Patient shaves: No Patient applies make-up: No Patient performs (no make-up/ 4/4 (100%) shaving): Grooming FIM Score 4. Minimal Assistance (Patient = 75% or more. Needs touching.) Toileting Toileting Device Bedpan Toileting FIM Score 2. Maximal Assistance (Patient = 25% or more) Social interaction/Memory/Problem solving Social Interaction FIM Score 7. Complete Mason (Interacts appropriately. Controls temper.) Memory FIM Score 4. Minimal Assistance (Recognizes and remembers 75-90%.) Problem Solving FIM Score 4. Minimal Assistance (Solves routine problems 75-90%.) Transfers Mode of Locomotion: Wheelchair Bed/Chair/Wheelchair Transfers 2. Maximal Assistance (Patient = 25% or more) FIM Score Toilet Transfers FIM Score 1. Total Assistance (Patient less than 25%. 2 or more persons.) Patient transferred to: Shower Shower Transfers FIM Score 1. Total Assistance (Patient less than 25%. 2 or more persons.) Locomotion- Stairs Stairs FIM Score 0. Activity does not occur Locomotion- walk/wheelchair Most Frequent Mode of Wheelchair Locomotion: Ambulation Distance 1 Walking FIM Score 0. Activity does not occur Wheelchair Propulsion Distance 200 Wheelchair FIM Score 5. Supervision (Minimum 150 ft. supv./cues or 50 ft. independently.) Eating Eating FIM Score 7. Complete Mason (Cuts meat, opens containers, regular diet.) Dressing-Upper body Patient retrieves clothing No items: Patient applies/removes UE No: n/a prosthesis or orthosis: Upper Body Dressing FIM Score 4. Minimal Assistance (Patient = 75% or more. Needs touching.) Dressing-lower body Patient retrieves clothing No items: Patient applies/removes LE No: n/a prosthesis or orthosis: Lower Body Dressing FIM Score 2. Maximal Assistance (Patient = 25% or more) - Labs CBC & Chem 7: 03/04/19 08:29 03/04/19 08:29 Labs: Laboratory Results - last 72 hr 03/01/19 03/01/19 03/02/19 18:42 21:15 07:46 WBC RBC Hgb Hct MCV MCH MCHC RDW Plt Count Sodium Potassium Chloride Carbon Dioxide Anion Gap BUN Creatinine Estimated GFR BUN/Creatinine Ratio Glucose POC Glucose 349 H 330 H < 40 L Calcium Random Vancomycin 03/02/19 03/02/19 03/02/19 07:57 08:19 11:33 WBC RBC Hgb Hct MCV MCH MCHC RDW Plt Count Sodium Potassium Chloride Carbon Dioxide Anion Gap BUN Creatinine Estimated GFR BUN/Creatinine Ratio Glucose 185 H POC Glucose 156 H 161 H Calcium Random Vancomycin 03/02/19 03/02/19 03/03/19 16:48 21:10 06:35 WBC RBC Hgb Hct MCV MCH MCHC RDW Plt Count Sodium Potassium Chloride Carbon Dioxide Anion Gap BUN Creatinine Estimated GFR BUN/Creatinine Ratio Glucose POC Glucose 297 H 250 H Calcium Random Vancomycin 27.9 03/03/19 03/03/19 03/04/19 07:35 20:32 07:48 WBC RBC Hgb Hct MCV MCH MCHC RDW Plt Count Sodium Potassium Chloride Carbon Dioxide Anion Gap BUN Creatinine Estimated GFR BUN/Creatinine Ratio Glucose POC Glucose 99 125 H 60 L Calcium Random Vancomycin 03/04/19 03/04/19 03/04/19 08:29 08:29 08:50 WBC 7.3 RBC 3.47 L Hgb 8.4 L Hct 27.0 L MCV 78 L MCH 24 L MCHC 31 RDW 23.1 H Plt Count 450 H Sodium 136 L Potassium 4.7 Chloride 96.1 L Carbon Dioxide 27 Anion Gap 18 BUN 21 H Creatinine 3.6 H Estimated GFR 15 BUN/Creatinine Ratio 6 Glucose 82 POC Glucose 111 H Calcium 8.6 Random Vancomycin 03/04/19 12:31 WBC RBC Hgb Hct MCV MCH MCHC RDW Plt Count Sodium Potassium Chloride Carbon Dioxide Anion Gap BUN Creatinine Estimated GFR BUN/Creatinine Ratio Glucose POC Glucose 156 H Calcium Random Vancomycin Assessment and Plan R BKA: Will likely be a K1 ambulator, K2 not likely in reach at this point. After speaking with daughter, patient will most likely remain K1. Monitor wound. On isolation for MRSA in Blood with 4 weeks vancomycin during dialysis (03/19/2019 per ID notes). Continue to work on transfers and mobility. Monitor for phantom sensation/pain. Discussed prosthesis. Last blood culture was negative and patient remains on antibiotics with no excessive drainage from the wound. GILBERTO: Cont CPAP HTN: Monitor BP and adjust meds for normotension DM: Carb controlled diet. Monitor glucose. SSI. Insulin adjusted by IM Decreased memory: LICENSED [employer] WORK[employer] to assess cognitive function Hypothyroidism: Continue medication Z73.6 ADL dysfunction: OT will work on improving ability to perform ADLs (including assistive devices) to increase independence and decrease caregiver burden and improve functional transfers and mobility training. R26.2 Difficulty walking: PT will work on gait training and proper use of assistive devices and advance as appropriate to use of stairs and outside ambulation on uneven surfaces. R26.81 Unsteadiness on feet: PT will work on improving static and dynamic sitting and standing balance as well as proper use of assistive devices to decrease risk of falls. R26.89 Abnormality of gait: PT will work to improve safety and efficiency of gait through neuromotor training and gait training along with instruction on proper use of assistive devices. M62.81 Muscle weakness: PT & OT will work on strengthening exercises to improve functional strength including mixture of closed and open kinetic chain exercises. R53.81 Debility: PT & OT will work on improving overall functional status to improve participation with ADLs, mobility and social involvement. R53.83 Fatigue: PT & OT will work on improving endurance through aerobic exercises and therapeutic activity while monitoring patients tolerance for activity and vital signs as needed. Mood - slight breakdown with therapy. Will continue to monitor for signs of interference with function. Seems ok now DVT ppx: heparin Pain: Continue physical modalities in therapy and pain medications as needed to achieve functional pain control. Sleep: Monitor and address as needed. Bowel: Monitor and address as needed. Appetite: Monitor and address as needed. Discharge planning: Pending therapy progress and care plan meeting. Will continue discussion with therapy team, SW, patient and family. Restrictions/ Precautions: Falls WB status: FWB Functional Hx: ADLs: Independent Cognition: Needed assistance Mobility: Cane and w/c for distance Barriers to Discharge: Decreased mobility and ability to perform self care, balance deficits, weakness, cognition Estimated Length of Stay: 14-18 days Discharge Destination: Home with family with supervision
--- NOTE | 2019-03-04 15:27 | Progress Note ---
Assessment and Plan Assessment and plan: Hospitalist cosmetic sales consultant for DM in the Inpatient Rehab unit of [facility] Patient is a 78-year-old woman with a history of PVD, DM type 2, ESRD on hemodialysis, GERD, CVA, heart failure, hypertension, hypothyroidism, legally blind and GILBERTO who presented to [facility] inpatient rehab unit following right leg BKA. Hospitalist consulted and following for uncontrolled DM. 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 Follow-up on current diagnosis of DM/hyperglycemia. Overnight events reported to me was low bG of 60. Patient denies any chest pain, shortness breath, nausea/vomiting or severe headaches. Imaging, nursing note, chart, labs and old chart reviewed. Discussed with patient. Hospitalist Physical - Physical exam Narrative exam: Gen: WDWN, NAD, Awake, Alert, Orientated HEENT: NCAT, EOMI, PERRL, OP Clear Neck: supple, no adenopathy, no thyromegaly, no JVD CVS/Heart: RRR, normal S1S2, pulses present bilaterally Chest/Lungs: CTA B, Symmetrical chest expansion, good air entry bilaterally GI/Abdomen: soft, NTND, good bowel sounds, no guarding or rebound /Bladder: no suprapubic tenderness, no CVA or paraspinal tenderness Extermity/Skin: no c/c/e, no obvious rash MSK: FROM x 3, with right leg BKA and mike still in place, wound looks ok Neuro: CN 2-12 grossly intact, no new focal deficits Psych: calm - Constitutional Vitals: Temp Pulse Resp BP Pulse Ox 97.7 F 68 20 134/57 95 03/04/19 11:21 03/04/19 11:21 03/04/19 11:21 03/04/19 11:21 03/04/19 11:21 General appearance: Present: no acute distress, well-nourished Results - Labs CBC & Chem 7: 03/04/19 08:29 03/04/19 08:29 Labs: Laboratory Last Values WBC 7.3 K/mm3 (4.5-11.0) 03/04/19 08:29 RBC 3.47 M/mm3 (3.65-5.03) L 03/04/19 08:29 Hgb 8.4 gm/dl (10.1-14.3) L 03/04/19 08:29 Hct 27.0 % (30.3-42.9) L 03/04/19 08:29 MCV 78 fl (79-97) L 03/04/19 08:29 MCH 24 pg (28-32) L 03/04/19 08:29 MCHC 31 % (30-34) 03/04/19 08:29 RDW 23.1 % (13.2-15.2) H 03/04/19 08:29 Plt Count 450 K/mm3 (140-440) H 03/04/19 08:29 Lymph % (Auto) Kettle Operator [place] 02/26/19 11:01 Gilmer % (Auto) Kettle Operator [place] 02/26/19 11:01 Eos % (Auto) Kettle Operator [place] 02/26/19 11:01 Baso % (Auto) Kettle Operator [place] 02/26/19 11:01 Lymph # Kettle Operator [place] 02/26/19 11:01 Gilmer # Kettle Operator [place] 02/26/19 11:01 Eos # Kettle Operator [place] 02/26/19 11:01 Baso # Kettle Operator [place] 02/26/19 11:01 Add Manual Diff Complete 02/26/19 11:01 Total Counted 100 02/26/19 11:01 Seg Neutrophils % Kettle Operator [place] 02/26/19 11:01 Seg Neuts % (Manual) 86.0 % (40.0-70.0) H 02/26/19 11:01 0 % 02/26/19 11:01 4.0 % (13.4-35.0) L 02/26/19 11:01 Reactive Lymphs % (Man) 0 % 02/26/19 11:01 9.0 % (0.0-7.3) H 02/26/19 11:01 1.0 % (0.0-4.3) 02/26/19 11:01 0 % (0.0-1.8) 02/26/19 11:01 0 % 02/26/19 11:01 0 % 02/26/19 11:01 0 % 02/26/19 11:01 0 % 02/26/19 11:01 Nucleated RBC % Not Reportable 02/26/19 11:01 Seg Neutrophils # Kettle Operator [place] 02/26/19 11:01 Seg Neutrophils # Man 6.4 K/mm3 (1.8-7.7) 02/26/19 11:01 Band Neutrophils # 0.0 K/mm3 02/26/19 11:01 0.3 K/mm3 (1.2-5.4) L 02/26/19 11:01 Abs React Lymphs (Man) 0.0 K/mm3 02/26/19 11:01 0.7 K/mm3 (0.0-0.8) 02/26/19 11:01 0.1 K/mm3 (0.0-0.4) 02/26/19 11:01 0.0 K/mm3 (0.0-0.1) 02/26/19 11:01 0.0 K/mm3 02/26/19 11:01 0.0 K/mm3 02/26/19 11:01 0.0 K/mm3 02/26/19 11:01 Blast Cells # 0.0 K/mm3 02/26/19 11:01 WBC Morphology Not Reportable 02/26/19 11:01 Hypersegmented Neuts Not Reportable 02/26/19 11:01 Hyposegmented Neuts Not Reportable 02/26/19 11:01 Hypogranular Neuts Not Reportable 02/26/19 11:01 Not Reportable 02/26/19 11:01 Not Reportable 02/26/19 11:01 Not Reportable 02/26/19 11:01 Not Reportable 02/26/19 11:01 Not Reportable 02/26/19 11:01 Not Reportable 02/26/19 11:01 Consistent w auto 02/26/19 11:01 Not Reportable 02/26/19 11:01 Plt Clumps, EDTA Not Reportable 02/26/19 11:01 Not Reportable 02/26/19 11:01 Not Reportable 02/26/19 11:01 Not Reportable 02/26/19 11:01 Plt Morphology Comment Not Reportable 02/26/19 11:01 RBC Morphology Not Reportable 02/26/19 11:01 Dimorphic RBCs Not Reportable 02/26/19 11:01 Few 02/26/19 11:01 1+ 02/26/19 11:01 Not Reportable 02/26/19 11:01 1+ 02/26/19 11:01 Not Reportable 02/26/19 11:01 Not Reportable 02/26/19 11:01 Not Reportable 02/26/19 11:01 Not Reportable 02/26/19 11:01 Not Reportable 02/26/19 11:01 Few 02/26/19 11:01 Not Reportable 02/26/19 11:01 Few 02/26/19 11:01 Not Reportable 02/26/19 11:01 Not Reportable 02/26/19 11:01 Not Reportable 02/26/19 11:01 Not Reportable 02/26/19 11:01 Not Reportable 02/26/19 11:01 Not Reportable 02/26/19 11:01 Not Reportable 02/26/19 11:01 Acanthocytes (Spur) Not Reportable 02/26/19 11:01 Rouleaux Not Reportable 02/26/19 11:01 Not Reportable 02/26/19 11:01 Not Reportable 02/26/19 11:01 Not Reportable 02/26/19 11:01 Not Reportable 02/26/19 11:01 Hem Pathologist Commnt No 02/26/19 11:01 Sodium 136 mmol/L (137-145) L 03/04/19 08:29 Potassium 4.7 mmol/L (3.6-5.0) 03/04/19 08:29 Chloride 96.1 mmol/L (98-107) L 03/04/19 08:29 Carbon Dioxide 27 mmol/L (22-30) 03/04/19 08:29 18 mmol/L 03/04/19 08:29 BUN 21 mg/dL (7-17) H 03/04/19 08:29 3.6 mg/dL (0.7-1.2) H 03/04/19 08:29 Estimated GFR 15 ml/min 03/04/19 08:29 6 % 03/04/19 08:29 Glucose 82 mg/dL (65-100) 03/04/19 08:29 POC Glucose 156 (70-105) H 03/04/19 12:31 Calcium 8.6 mg/dL (8.4-10.2) 03/04/19 08:29 0.40 mg/dL (0.1-1.2) 02/26/19 11:01 AST 32 units/L (5-40) 02/26/19 11:01 ALT 17 units/L (7-56) 02/26/19 11:01 382 units/L (35-129) H 02/26/19 11:01 5.7 g/dL (6.3-8.2) L 02/26/19 11:01 2.6 g/dL (3.9-5) L 02/26/19 11:01 0.8 % 02/26/19 11:01 Random Vancomycin 27.9 ug/mL (0-40.0) 03/03/19 06:35 Hepatitis A IgM Ab Non-reactive (NonReactive) 02/28/19 10:48 Hep Bs Antigen Non-reactive (Negative) 02/28/19 10:48 Hep B Core IgM Ab Non-reactive (NonReactive) 02/28/19 10:48 Non-reactive (NonReactive) 02/28/19 10:48 Active Medications - Current Medications Current Medications: Generic Name Dose Route Start Last Admin Trade Name Freq PRN Reason Stop Dose Admin Albuterol 2.5 mg 02/25/19 18:39 Proventil IH Q4HRT PRN Shortness Of Breath Amlodipine Besylate 5 mg 02/26/19 08:00 03/04/19 08:38 Norvasc PO 5 mg QDAY JUAQUIN Administration Aspirin 81 mg 02/26/19 08:00 03/04/19 08:37 Halfprin Ec PO 81 mg QDAY JUAQUIN Administration Calcium Acetate 667 mg 02/26/19 07:30 03/04/19 13:15 Phoslo PO 667 mg AC JUAQUIN Administration Clopidogrel Bisulfate 75 mg 02/26/19 08:00 03/04/19 08:37 Plavix PO 75 mg QDAY JUAQUIN Administration Dextrose 50 ml 03/03/19 16:04 D50w (25gm) Syringe IV PRN PRN Hypoglycemia Diphenhydramine HCl 25 mg 02/25/19 18:39 02/27/19 18:16 Benadryl PO 25 mg Q6H PRN Administration Itching Ezetimibe 10 mg 02/25/19 22:00 03/03/19 21:14 Zetia PO 10 mg HS JUAQUIN Administration Epoetin Qunicy 10,000 unit 02/26/19 13:00 02/26/19 17:58 Procrit IV 10,000 unit ANNI JUAQUIN Administration Famotidine 10 mg 02/25/19 22:00 03/04/19 08:37 Pepcid PO 10 mg BID JUAQUIN Administration Heparin Sodium (Porcine) 5,000 unit 02/25/19 22:00 03/04/19 13:15 Heparin SUB-Q 5,000 unit Q8HR JUAQUIN Administration Sodium Chloride 100 mls @ 999 mls/hr 02/26/19 12:30 Nacl 0.9% IV ANNI PRN Hypotension Vancomycin HCl 750 mg/ Sodium 265 mls @ 166.667 mls/hr 03/05/19 18:00 Chloride IV 03/19/19 19:36 TuThSa@1800 JUAQUIN Insulin Human Isoph/Insulin Regular 5 unit 03/04/19 17:00 Humulin 70/30 SUB-Q QPMDIAB JUAQUIN Insulin Human Isoph/Insulin Regular 10 unit 03/05/19 09:00 Humulin 70/30 SUB-Q AC JUAQUIN Insulin Human Lispro 0 unit 03/03/19 16:30 03/04/19 12:40 Humalog SUB-Q Not Given ACHS [facility] Protocol Levothyroxine Sodium 50 mcg 02/26/19 06:00 03/04/19 06:16 Synthroid PO 50 mcg DAILY@0600 [facility] Administration Multivit/Ca Carb/B Cmplx/FA/Prenat 1 cap 02/27/19 08:00 03/04/19 08:37 Renal Caps PO 1 cap QDAY [facility] Administration Oxycodone/Acetaminophen 1 tab 02/25/19 18:39 03/03/19 13:20 Percocet 5/325 PO 1 tab Q6H PRN Administration Pain, Moderate (4-6) Pravastatin Sodium 40 mg 02/25/19 21:00 03/03/19 21:14 Pravachol PO 40 mg QHS JUAQUIN Administration Pregabalin 75 mg 02/25/19 22:00 03/03/19 21:14 Lyrica PO 75 mg HS JUAQUIN Administration Simethicone 80 mg 02/28/19 10:11 02/28/19 11:25 Mylicon PO 80 mg Q6H PRN Administration Gas pain Sodium Polystyrene Sulfonate 15 gm 02/25/19 18:39 Kionex PO Q6HR PRN Hyperkalemia
--- NOTE | 2019-03-04 17:01 | Progress Note ---
Assessment and Plan 1. ESRD: Continue hemodialysis three times a week, TTS schedule. 2. Anemia: S/p PRBC. Epogen with HD. 3. PAD: S/p R LE angioplasty and R BKA. 4. GILBERTO: CPAP. 5. DM type 2. 6. HTN: BP well controlled. In Acute rehab unit. Subjective Date of service: 03/04/19 Principal diagnosis: R BKA Interval history: Patient was seen and examined at the bedside. Doing ok. Objective - Vital Signs Vital signs: Vital Signs - 12hr 03/04/19 03/04/19 03/04/19 05:03 07:00 08:38 Temperature 98.1 F 97.5 F L Pulse Rate 74 69 69 Respiratory 20 20 Rate Blood Pressure 138/63 158/62 Blood Pressure 158/62 [Right] O2 Sat by Pulse 95 94 Oximetry 03/04/19 03/04/19 11:21 15:18 Temperature 97.7 F 98.0 F Pulse Rate 68 70 Respiratory 20 20 Rate Blood Pressure 134/57 137/60 Blood Pressure [Right] O2 Sat by Pulse 95 99 Oximetry - General Appearance General appearance: well-developed, well-nourished, appears stated age, other (no distress) EENT: ATNC, PERRL, hearing diminished Neck: supple Respiratory: Present: Clear to Ascultation Cardiology: regular, S1S2, no murmurs Gastrointestinal: normoactive bowel sounds, no tenderness, no distended Integumentary: no rash, warm and dry Neurologic: no asterixis, other (diminished vision) Musculoskeletal: other (R BKA, L arm AVF) - Lab 03/04/19 08:29 03/04/19 08:29 Most recent lab results Calcium 8.6 mg/dL (8.4-10.2) 03/04/19 08:29 Medications & Allergies - Medications Allergies/Adverse Reactions: Allergies Iodinated Contrast- Oral and IV Dye Allergy (Verified 11/25/18 15:48) Hives, Rash Penicillins Allergy (Verified 11/25/18 15:48) Hives Home Medications: Home Medications Medication Instructions Recorded Confirmed Last Taken Type B Complex 11/Folic/C/Biot/Zinc 1 each PO DAILY 09/06/15 02/25/19 11/25/18 20:00 History [Dialyvite with Zinc Tablet] Lispro Insulin [HumaLOG] 7 unit SQ AC 11/25/18 02/25/19 Unknown History Pantoprazole Sodium 40 mg PO DAILY 11/25/18 02/25/19 11/26/18 05:00 History amLODIPine [Norvasc] 5 mg PO DAILY 11/25/18 02/25/19 11/28/18 History 2.5 Ranitidine HCl [Zantac] 300 mg PO BID 02/16/19 02/25/19 Unknown History Calcium Acetate 667 mg PO AC 02/18/19 02/25/19 Unknown History Levothyroxine 0.05 mg PO QDAY 02/18/19 02/25/19 Unknown History Lyrica 75 mg PO HS 02/18/19 02/25/19 Unknown History Pravastatin 40 mg PO HS 02/18/19 02/25/19 Unknown History Zetia 10 mg PO HS 02/18/19 02/25/19 Unknown History Aspirin EC 81 mg PO QDAY #30 tablet 02/25/19 02/25/19 Unknown Rx Clopidogrel [Plavix] 75 mg PO QDAY #30 tablet 02/25/19 02/25/19 Unknown Rx oxyCODONE /ACETAMINOPHEN [Percocet 1 tab PO Q6H PRN #14 tablet 02/25/19 02/25/19 Unknown Rx 5/325 mg] Active Medications: Generic Name Dose Route Start Last Admin Trade Name Freq PRN Reason Stop Dose Admin Albuterol 2.5 mg 02/25/19 18:39 Proventil IH Q4HRT PRN Shortness Of Breath Amlodipine Besylate 5 mg 02/26/19 08:00 03/04/19 08:38 Norvasc PO 5 mg QDAY JUAQUIN Administration Aspirin 81 mg 02/26/19 08:00 03/04/19 08:37 Halfprin Ec PO 81 mg QDAY JUAQUIN Administration Calcium Acetate 667 mg 02/26/19 07:30 03/04/19 13:15 Phoslo PO 667 mg AC JUAQUIN Administration Clopidogrel Bisulfate 75 mg 02/26/19 08:00 03/04/19 08:37 Plavix PO 75 mg QDAY JUAQUIN Administration Dextrose 50 ml 03/03/19 16:04 D50w (25gm) Syringe IV PRN PRN Hypoglycemia Diphenhydramine HCl 25 mg 02/25/19 18:39 02/27/19 18:16 Benadryl PO 25 mg Q6H PRN Administration Itching Ezetimibe 10 mg 02/25/19 22:00 03/03/19 21:14 Zetia PO 10 mg HS JUAQUIN Administration Epoetin [place] 10,000 unit 02/26/19 13:00 02/26/19 17:58 Procrit IV 10,000 unit ANNI JUAQUIN Administration Famotidine 10 mg 02/25/19 22:00 03/04/19 08:37 Pepcid PO 10 mg BID JUAQUIN Administration Heparin Sodium (Porcine) 5,000 unit 02/25/19 22:00 03/04/19 13:15 Heparin SUB-Q 5,000 unit Q8HR JUAQUIN Administration Sodium Chloride 100 mls @ 999 mls/hr 02/26/19 12:30 Nacl 0.9% IV ANNI PRN Hypotension Vancomycin HCl 750 mg/ Sodium 265 mls @ 166.667 mls/hr 03/05/19 18:00 Chloride IV 03/19/19 19:36 TuThSa@1800 JUAQUIN Insulin Human Isoph/Insulin Regular 5 unit 03/04/19 17:00 Humulin 70/30 SUB-Q QPMDIAB [facility] Insulin Human Isoph/Insulin Regular 10 unit 03/05/19 08:00 Humulin 70/30 SUB-Q QAMDIAB [facility] Insulin Human Lispro 0 unit 03/03/19 16:30 03/04/19 12:40 Humalog SUB-Q Not Given ACHS [facility] Protocol Levothyroxine Sodium 50 mcg 02/26/19 06:00 03/04/19 06:16 Synthroid PO 50 mcg DAILY@0600 [facility] Administration Multivit/Ca Carb/B Cmplx/FA/Prenat 1 cap 02/27/19 08:00 03/04/19 08:37 Renal Caps PO 1 cap QDAY [facility] Administration Oxycodone/Acetaminophen 1 tab 02/25/19 18:39 03/03/19 13:20 Percocet 5/325 PO 1 tab Q6H PRN Administration Pain, Moderate (4-6) Pravastatin Sodium 40 mg 02/25/19 21:00 03/03/19 21:14 Pravachol PO 40 mg QHS JUAQUIN Administration Pregabalin 75 mg 02/25/19 22:00 03/03/19 21:14 Lyrica PO 75 mg HS JUAQUIN Administration Simethicone 80 mg 02/28/19 10:11 02/28/19 11:25 Mylicon PO 80 mg Q6H PRN Administration Gas pain Sodium Polystyrene Sulfonate 15 gm 02/25/19 18:39 Kionex PO Q6HR PRN Hyperkalemia
[2019-03-04] MEDS: LYRICA PO SCH (21:48)
[2019-03-04] MEDS: ZETIA PO SCH (21:48)
[2019-03-04] MEDS: PRAVACHOL PO SCH (21:48)
[2019-03-05] MEDS: D50W (25GM) Syringe IV PRN
[2019-03-05] MEDS: SYNTHROID PO SCH (06:28)
[2019-03-05] MEDS: HEPARIN SUB-Q SCH ×3 (06:28→21:31)
[2019-03-05] MEDS: HumaLOG SUB-Q SCH ×4 (08:00→23:00)
[2019-03-05] MEDS: PROVENTIL IH PRN (09:06)
[2019-03-05] MEDS ORDERED: LANTUS SUB-Q SCH (10:00)
--- NOTE | 2019-03-05 10:27 | XRay Report ---
CHEST 1 VIEW INDICATION / CLINICAL INFORMATION: SOB. COMPARISON: 02/06/2019 FINDINGS: SUPPORT DEVICES: Vascular stent projects over the left axilla. HEART / MEDIASTINUM: There is prominence of the cardiac silhouette LUNGS / PLEURA: There are low lung volumes bilaterally. There is perihilar interstitial change charac teristic of edema. There is elevation right hemidiaphragm.. No pneumothorax. ADDITIONAL FINDINGS: No significant additional findings. IMPRESSION: 1. There is mild perihilar edema. Signer Name: Boyd Dowling MD Signed: 03/05/2019 10:22 AM Workstation Name: [id number]
[2019-03-05] MEDS: PERCOCET 5/325 PO PRN ×2 (11:11→18:32)
[2019-03-05] MEDS: HALFPRIN EC PO SCH (11:12)
[2019-03-05] MEDS: PLAVIX PO SCH (11:12)
[2019-03-05] MEDS: PEPCID PO SCH ×2 (11:12→21:30)
[2019-03-05] MEDS: NORVASC PO SCH (11:22)
--- NOTE | 2019-03-05 11:58 | Progress Note ---
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 Patient is a 78-year-old woman with a history of PVD, DM type 2, ESRD on hemodialysis, GERD, CVA, heart failure, hypertension, hypothyroidism, legally blind and GILBERTO who presented to [facility] inpatient rehab unit following right leg BKA. Hospitalist consulted and following for uncontrolled DM. cardiac exercise specialist hypoglycemia, suspect Somogyi effect: change 70/30 to lantus DM Type 2 with hyperglycemia: change to lantus, continue SSI monitor GILBERTO ON CPAP: Stable GERD: Famotidine ESRD: HD tts, Nephrology following Right foot gangrene with severe PVD s/p BKA: Continue rehab, PT, OT HTN, controlled: low salt diet and treat with antihypertensives HX OF CVA: continue plavix, continue statin, ZETIA Hyperlipidemia: statin Hypothyrodisim: CONTINUE SYNTHROID Anemia: Monitor, on epogen DVT/GI prophylaxis History Interval history: Patient was seen and examined. Follow-up on current diagnosis of DM/hyper glycemia. Overnight events reported to me was low bG of 60. Patient denies any chest pain, shortness breath, nausea/vomiting or severe headaches. Imaging, nursing note, chart, labs and old chart reviewed. Discussed with patient. Hospitalist Physical - Physical exam Narrative exam: Gen: WDWN, NAD, Awake, Alert, Orientated HEENT: NCAT, EOMI, PERRL, OP Clear Neck: supple, no adenopathy, no thyromegaly, no JVD CVS/Heart: RRR, normal S1S2, pulses present bilaterally Chest/Lungs: CTA B, Symmetrical chest expansion, good air entry bilaterally GI/Abdomen: soft, NTND, good bowel sounds, no guarding or rebound /Bladder: no suprapubic tenderness, no CVA or paraspinal tenderness Extermity/Skin: no c/c/e, no obvious rash MSK: FROM x 3, with right leg BKA and mike still in place, wound looks ok Neuro: CN 2-12 grossly intact, no new focal deficits Psych: calm - Constitutional Vitals: Temp Pulse Resp BP Pulse Ox 98 F 64 18 145/66 100 03/05/19 07:00 03/05/19 07:00 03/05/19 07:00 03/05/19 07:00 03/05/19 07:00 General appearance: Present: no acute distress, well-nourished Results - Labs CBC & Chem 7: 03/04/19 08:29 03/04/19 08:29 Labs: Laboratory Last Values WBC 7.3 K/mm3 (4.5-11.0) 03/04/19 08:29 RBC 3.47 M/mm3 (3.65-5.03) L 03/04/19 08:29 Hgb 8.4 gm/dl (10.1-14.3) L 03/04/19 08:29 Hct 27.0 % (30.3-42.9) L 03/04/19 08:29 MCV 78 fl (79-97) L 03/04/19 08:29 MCH 24 pg (28-32) L 03/04/19 08:29 MCHC 31 % (30-34) 03/04/19 08:29 RDW 23.1 % (13.2-15.2) H 03/04/19 08:29 Plt Count 450 K/mm3 (140-440) H 03/04/19 08:29 Lymph % (Auto) Director Of Speech Pathology 02/26/19 11:01 [place] % (Auto) Director Of Speech Pathology 02/26/19 11:01 Eos % (Auto) Director Of Speech Pathology 02/26/19 11:01 Baso % (Auto) Director Of Speech Pathology 02/26/19 11:01 Lymph # Director Of Speech Pathology 02/26/19 11:01 [place] # Director Of Speech Pathology 02/26/19 11:01 Eos # Director Of Speech Pathology 02/26/19 11:01 Baso # Director Of Speech Pathology 02/26/19 11:01 Add Manual Diff Complete 02/26/19 11:01 Total Counted 100 02/26/19 11:01 Seg Neutrophils % Director Of Speech Pathology 02/26/19 11:01 Seg Neuts % (Manual) 86.0 % (40.0-70.0) H 02/26/19 11:01 0 % 02/26/19 11:01 4.0 % (13.4-35.0) L 02/26/19 11:01 Reactive Lymphs % (Man) 0 % 02/26/19 11:01 9.0 % (0.0-7.3) H 02/26/19 11:01 1.0 % (0.0-4.3) 02/26/19 11:01 0 % (0.0-1.8) 02/26/19 11:01 0 % 02/26/19 11:01 0 % 02/26/19 11:01 0 % 02/26/19 11:01 0 % 02/26/19 11:01 Nucleated RBC % Not Reportable 02/26/19 11:01 Seg Neutrophils # Director Of Speech Pathology 02/26/19 11:01 Seg Neutrophils # Man 6.4 K/mm3 (1.8-7.7) 02/26/19 11:01 Band Neutrophils # 0.0 K/mm3 02/26/19 11:01 0.3 K/mm3 (1.2-5.4) L 02/26/19 11:01 Abs React Lymphs (Man) 0.0 K/mm3 02/26/19 11:01 0.7 K/mm3 (0.0-0.8) 02/26/19 11:01 0.1 K/mm3 (0.0-0.4) 02/26/19 11:01 0.0 K/mm3 (0.0-0.1) 02/26/19 11:01 0.0 K/mm3 02/26/19 11:01 0.0 K/mm3 02/26/19 11:01 0.0 K/mm3 02/26/19 11:01 Blast Cells # 0.0 K/mm3 02/26/19 11:01 WBC Morphology Not Reportable 02/26/19 11:01 Hypersegmented Neuts Not Reportable 02/26/19 11:01 Hyposegmented Neuts Not Reportable 02/26/19 11:01 Hypogranular Neuts Not Reportable 02/26/19 11:01 Not Reportable 02/26/19 11:01 Not Reportable 02/26/19 11:01 Not Reportable 02/26/19 11:01 Not Reportable 02/26/19 11:01 Not Reportable 02/26/19 11:01 Not Reportable 02/26/19 11:01 Consistent w auto 02/26/19 11:01 Not Reportable 02/26/19 11:01 Plt Clumps, EDTA Not Reportable 02/26/19 11:01 Not Reportable 02/26/19 11:01 Not Reportable 02/26/19 11:01 Not Reportable 02/26/19 11:01 Plt Morphology Comment Not Reportable 02/26/19 11:01 RBC Morphology Not Reportable 02/26/19 11:01 Dimorphic RBCs Not Reportable 02/26/19 11:01 Few 02/26/19 11:01 1+ 02/26/19 11:01 Not Reportable 02/26/19 11:01 1+ 02/26/19 11:01 Not Reportable 02/26/19 11:01 Not Reportable 02/26/19 11:01 Not Reportable 02/26/19 11:01 Not Reportable 02/26/19 11:01 Not Reportable 02/26/19 11:01 Few 02/26/19 11:01 Not Reportable 02/26/19 11:01 Few 02/26/19 11:01 Not Reportable 02/26/19 11:01 Not Reportable 02/26/19 11:01 Not Reportable 02/26/19 11:01 Not Reportable 02/26/19 11:01 Not Reportable 02/26/19 11:01 Not Reportable 02/26/19 11:01 Not Reportable 02/26/19 11:01 Acanthocytes (Spur) Not Reportable 02/26/19 11:01 Rouleaux Not Reportable 02/26/19 11:01 Not Reportable 02/26/19 11:01 Not Reportable 02/26/19 11:01 Not Reportable 02/26/19 11:01 Not Reportable 02/26/19 11:01 Hem Pathologist Commnt No 02/26/19 11:01 Sodium 136 mmol/L (137-145) L 03/04/19 08:29 Potassium 4.7 mmol/L (3.6-5.0) 03/04/19 08:29 Chloride 96.1 mmol/L (98-107) L 03/04/19 08:29 Carbon Dioxide 27 mmol/L (22-30) 03/04/19 08:29 18 mmol/L 03/04/19 08:29 BUN 21 mg/dL (7-17) H 03/04/19 08:29 3.6 mg/dL (0.7-1.2) H 03/04/19 08:29 Estimated GFR 15 ml/min 03/04/19 08:29 6 % 03/04/19 08:29 Glucose 82 mg/dL (65-100) 03/04/19 08:29 POC Glucose 80 (70-105) 03/05/19 07:04 Calcium 8.6 mg/dL (8.4-10.2) 03/04/19 08:29 0.40 mg/dL (0.1-1.2) 02/26/19 11:01 AST 32 units/L (5-40) 02/26/19 11:01 ALT 17 units/L (7-56) 02/26/19 11:01 382 units/L (35-129) H 02/26/19 11:01 5.7 g/dL (6.3-8.2) L 02/26/19 11:01 2.6 g/dL (3.9-5) L 02/26/19 11:01 0.8 % 02/26/19 11:01 Random Vancomycin 27.9 ug/mL (0-40.0) 03/03/19 06:35 Hepatitis A IgM Ab Non-reactive (NonReactive) 02/28/19 10:48 Hep Bs Antigen Non-reactive (Negative) 02/28/19 10:48 Hep B Core IgM Ab Non-reactive (NonReactive) 02/28/19 10:48 Non-reactive (NonReactive) 02/28/19 10:48 Active Medications - Current Medications Current Medications: Generic Name Dose Route Start Last Admin Trade Name Freq PRN Reason Stop Dose Admin Albuterol 2.5 mg 02/25/19 18:39 03/05/19 09:06 Proventil IH 2.5 mg Q4HRT PRN Administration Shortness Of Breath Amlodipine Besylate 5 mg 02/26/19 08:00 03/05/19 11:22 Norvasc PO Not Given QDAY JUAQUIN Aspirin 81 mg 02/26/19 08:00 03/05/19 11:12 Halfprin Ec PO 81 mg QDAY JUAQUIN Administration Calcium Acetate 667 mg 02/26/19 07:30 03/04/19 17:49 Phoslo PO 667 mg AC JUAQUIN Administration Clopidogrel Bisulfate 75 mg 02/26/19 08:00 03/05/19 11:12 Plavix PO 75 mg QDAY JUAQUIN Administration Dextrose 50 ml 03/03/19 16:04 03/05/19 00:00 D50w (25gm) Syringe IV 50 ml PRN PRN Administration Hypoglycemia Diphenhydramine HCl 25 mg 02/25/19 18:39 02/27/19 18:16 Benadryl PO 25 mg Q6H PRN Administration Itching Ezetimibe 10 mg 02/25/19 22:00 03/04/19 21:48 Zetia PO 10 mg HS JUAQUIN Administration Epoetin [place] 10,000 unit 02/26/19 13:00 02/26/19 17:58 Procrit IV 10,000 unit ANNI JUAQUIN Administration Famotidine 10 mg 02/25/19 22:00 03/05/19 11:12 Pepcid PO 10 mg BID JUAQUIN Administration Heparin Sodium (Porcine) 5,000 unit 02/25/19 22:00 03/05/19 06:28 Heparin SUB-Q 5,000 unit Q8HR JUAQUIN Administration Sodium Chloride 100 mls @ 999 mls/hr 02/26/19 12:30 Nacl 0.9% IV ANNI PRN Hypotension Vancomycin HCl 750 mg/ Sodium 265 mls @ 166.667 mls/hr 03/05/19 18:00 Chloride IV 03/19/19 19:36 TuThSa@1800 [facility] Insulin Glargine 10 units 03/05/19 10:00 Lantus SUB-Q QAMDIAB [facility] Insulin Human Lispro 0 unit 03/03/19 16:30 03/05/19 08:00 Humalog SUB-Q Not [facility] Protocol Levothyroxine Sodium 50 mcg 02/26/19 06:00 03/05/19 06:28 Synthroid PO 50 mcg DAILY@0600 [facility] Administration Multivit/Ca Carb/B Cmplx/FA/Prenat 1 cap 02/27/19 08:00 03/04/19 08:37 Renal Caps PO 1 cap QDAY [facility] Administration Oxycodone/Acetaminophen 1 tab 02/25/19 18:39 03/05/19 11:11 Percocet 5/325 PO 1 tab Q6H PRN Administration Pain, Moderate (4-6) Pravastatin Sodium 40 mg 02/25/19 21:00 03/04/19 21:48 Pravachol PO 40 mg QHS JUAQUIN Administration Pregabalin 75 mg 02/25/19 22:00 03/04/19 21:48 Lyrica PO 75 mg HS JUAQUIN Administration Simethicone 80 mg 02/28/19 10:11 02/28/19 11:25 Mylicon PO 80 mg Q6H PRN Administration Gas pain Sodium Polystyrene Sulfonate 15 gm 02/25/19 18:39 Kionex PO Q6HR PRN Hyperkalemia Nutrition/Malnutrition Assess - Dietary Evaluation Nutrition/Malnutrition Findings: Nutrition Notes Start: 03/04/19 17:30 Freq: Status: Active Protocol: Document 03/04/19 17:30 RM (Rec: 03/04/19 17:31 RM [id number]) Nutrition Notes Need for Assessment generated from: LOS Initial or Follow up Brief Note Height 4 ft 11 in Weight 67.8 kg [place] Body Weight (kg) 43.18 BMI 30.2 Subjective/Other Information Screened for LOS. Recorded PO intake 81% X 4 meals. Nutrition Intervention Revisit per MD consult or patient Sign Off request:
[2019-03-05] MEDS: Renal Caps PO SCH (12:04)
[2019-03-05] MEDS: PHOSLO PO SCH ×3 (12:05→18:34)
--- NOTE | 2019-03-05 15:49 | Progress Note ---
Subjective Date of service: 03/05/19 Principal diagnosis: R BKA Interval history: 78-year-old female with right foot pain presented to ER and found to have sepsis. Amputation was previously discussed for the right lower extremity gangrene however family refused. Patient had been undergoing treatment HBOT without resolution. ID was consulted and started antibiotics. Vascular surgery performed angiography. Afterwards she was scheduled for a right BKA which proceeded without incident. After the patient was medically stabilized they were transferred for further rehabilitation. All available medical records have been reviewed. Plan of care was discussed with patient and family. Patient is participating in therapy and making reasonable progress. Taking rest breaks as needed. +BM. Resting in room during dialysis. GLU is variable. Spoke with dialysis nurse - if we can clear her from contact isolation she can go to dialysis unit and reduce staffing issues. Last blood culture was no growth. Will contact ID for opinion. Dyspnea during dialysis, check cxr. May improve after dialysis. Some phantom sensation but no overt phantom pain. Standing with therapy and assistance for short period, SBT. Continue therapy as planned. No signs of infection (residual limb not visualized today), continues vanc on dialysis days. Will need to see surgeon on 03/10/2019 for follow up. All records, vitals, labs and medications were reviewed. No other issues per patient, nursing or therapy. Objective - Exam Narrative Exam: MUSCULOSKELETAL SPECIALTY EXAM CONSTITUTIONAL: Well developed, well nourished, appropriately groomed EENT: Legally blind. Oropharynx clear. RESPIRATORY: Clear to auscultation bilaterally, no increased work of breathing. Supplemental O2 CARDIOVASCULAR: Regular Rate/ Rhythm, no swelling, edema or tenderness in BUE or BLE. Pulses palpable in all extremities. All extremities warm. Thrill in LUE (dialysis in progress) GI: + bowel sounds, soft, nondistended. INTEGUMENTARY: LLE has blisters which have improved with decrease in edema. Otherwise, normal, no lesion, rash, masses or bruising noted in extremities. Surgical wound on right lower extremity is healing well (not visualized today) MUSCULOSKELETAL: Right BKA, otherwise BUE and BLE normal without defect, crepitus, subluxation, effusion, arthritic changes or TTP. BUE 4/5, good ROM, with normal tone. LLE 4-/5 good ROM, with normal tone, RLE decreased ROM secondary to pain NEURO: CN 2-12 grossly intact. Sensation intact in all extremities. No tremor noted in 4 extremities. POSTURE and GAIT: Sitting posture good. Balance appears reasonable. Gait deferred, based on standing performance she may not be able to ambulate with just a walker without prosthesis.. PSYCH: Alert, orientated x2, slightly confused at times and decreased memory, affect appears normal. - Constitutional Vitals: Vital Signs - 12hr 03/05/19 03/05/19 03/05/19 05:29 07:00 12:00 Temperature 36.5 C 36.6 C 36.9 C Pulse Rate 63 64 70 Respiratory 20 18 16 Rate Blood Pressure 147/58 Blood Pressure 145/66 130/56 [Right] O2 Sat by Pulse 96 100 98 Oximetry 03/05/19 03/05/19 03/05/19 13:25 13:30 13:45 Temperature 36.7 C Pulse Rate 62 62 64 Respiratory 18 Rate Blood Pressure 132/57 125/56 146/52 Blood Pressure [Right] O2 Sat by Pulse Oximetry 03/05/19 03/05/19 03/05/19 14:00 14:15 14:30 Temperature Pulse Rate 64 64 63 Respiratory Rate Blood Pressure 120/59 130/50 124/56 Blood Pressure [Right] O2 Sat by Pulse Oximetry 03/05/19 03/05/19 03/05/19 14:45 15:00 15:15 Temperature Pulse Rate 62 64 63 Respiratory Rate Blood Pressure 120/56 117/69 107/61 Blood Pressure [Right] O2 Sat by Pulse Oximetry - Allied health notes Allied health notes reviewed: nursing, PT, ST, OT FIMS assessment as documented by PT/OT/ST: Grooming Patient cleans teeth/dentures: Yes Patient holguin/brushes hair: Yes Patient washes, rinses and Yes dries face: Patient washes, rinses and Yes dries hands: Patient shaves: No Patient applies make-up: No Patient performs (no make-up/ /4 (100%) shaving): Grooming FIM Score 4. Minimal Assistance (Patient = 75% or more. Needs touching.) Toileting Toileting Device Bedpan Toileting FIM Score 2. Maximal Assistance (Patient = 25% or more) Social interaction/Memory/Problem solving Social Interaction FIM Score 7. Complete [place] (Interacts appropriately. Controls temper.) Memory FIM Score 4. Minimal Assistance (Recognizes and remembers 75-90%.) Problem Solving FIM Score 4. Minimal Assistance (Solves routine problems 75-90%.) Transfers Mode of Locomotion: Wheelchair Bed/Chair/Wheelchair Transfers 2. Maximal Assistance (Patient = 25% or more) FIM Score Toilet Transfers FIM Score 1. Total Assistance (Patient less than 25%. 2 or more persons.) Patient transferred to: Shower Shower Transfers FIM Score 1. Total Assistance (Patient less than 25%. 2 or more persons.) Locomotion- Stairs Stairs FIM Score 0. Activity does not occur Locomotion- walk/wheelchair Most Frequent Mode of Wheelchair Locomotion: Ambulation Distance 1 Walking FIM Score 0. Activity does not occur Wheelchair Propulsion Distance 200 Wheelchair FIM Score 5. Supervision (Minimum 150 ft. supv./cues or 50 ft. independently.) Eating Eating FIM Score 7. Complete [place] (Cuts meat, opens containers, regular diet.) Dressing-Upper body Patient retrieves clothing No items: Patient applies/removes UE No: n/a prosthesis or orthosis: Upper Body Dressing FIM Score 4. Minimal Assistance (Patient = 75% or more. Needs touching.) Dressing-lower body Patient retrieves clothing No items: Patient applies/removes LE No: n/a prosthesis or orthosis: Lower Body Dressing FIM Score 2. Maximal Assistance (Patient = 25% or more) - Labs CBC & Chem 7: 03/06/19 08:33 03/06/19 08:33 Labs: Laboratory Results - last 72 hr 03/02/19 03/02/19 03/03/19 16:48 21:10 06:35 WBC RBC Hgb Hct MCV MCH MCHC RDW Plt Count Sodium Potassium Chloride Carbon Dioxide Anion Gap BUN Creatinine Estimated GFR BUN/Creatinine Ratio Glucose POC Glucose 297 H 250 H Calcium Random Vancomycin 27.9 03/03/19 03/03/19 03/04/19 07:35 20:32 07:48 WBC RBC Hgb Hct MCV MCH MCHC RDW Plt Count Sodium Potassium Chloride Carbon Dioxide Anion Gap BUN Creatinine Estimated GFR BUN/Creatinine Ratio Glucose POC Glucose 99 125 H 60 L Calcium Random Vancomycin 03/04/19 03/04/19 03/04/19 08:29 08:29 08:50 WBC 7.3 RBC 3.47 L Hgb 8.4 L Hct 27.0 L MCV 78 L MCH 24 L MCHC 31 RDW 23.1 H Plt Count 450 H Sodium 136 L Potassium 4.7 Chloride 96.1 L Carbon Dioxide 27 Anion Gap 18 BUN 21 H Creatinine 3.6 H Estimated GFR 15 BUN/Creatinine Ratio 6 Glucose 82 POC Glucose 111 H Calcium 8.6 Random Vancomycin 03/04/19 03/04/19 03/04/19 12:31 17:28 22:09 WBC RBC Hgb Hct MCV MCH MCHC RDW Plt Count Sodium Potassium Chloride Carbon Dioxide Anion Gap BUN Creatinine Estimated GFR BUN/Creatinine Ratio Glucose POC Glucose 156 H 259 H 64 L Calcium Random Vancomycin 03/05/19 03/05/19 03/05/19 00:03 00:29 07:04 WBC RBC Hgb Hct MCV MCH MCHC RDW Plt Count Sodium Potassium Chloride Carbon Dioxide Anion Gap BUN Creatinine Estimated GFR BUN/Creatinine Ratio Glucose POC Glucose 59 L 191 H 80 Calcium Random Vancomycin 03/05/19 12:00 WBC RBC Hgb Hct MCV MCH MCHC RDW Plt Count Sodium Potassium Chloride Carbon Dioxide Anion Gap BUN Creatinine Estimated GFR BUN/Creatinine Ratio Glucose POC Glucose 158 H Calcium Random Vancomycin Assessment and Plan R BKA: Will likely be a K1 ambulator, K2 not likely in reach at this point. After speaking with daughter, patient will most likely remain K1. Monitor wound. On isolation for MRSA in Blood with 4 weeks vancomycin during dialysis (03/19/2019 per ID notes). Continue to work on transfers and mobility. Monitor for phantom sensation/pain. Discussed prosthesis. Last blood culture was negative and patient remains on antibiotics with no excessive drainage from the wound. GILBERTO: Cont CPAP HTN: Monitor BP and adjust meds for normotension DM: Carb controlled diet. Monitor glucose. SSI. Insulin adjusted by IM Decreased memory: PULMONARY NURSE PRACTITIONER to assess cognitive function Hypothyroidism: Continue medication Z73.6 ADL dysfunction: OT will work on improving ability to perform ADLs (including assistive devices) to increase independence and decrease caregiver burden and improve functional transfers and mobility training. R26.2 Difficulty walking: PT will work on gait training and proper use of assistive devices and advance as appropriate to use of stairs and outside ambulation on uneven surfaces. R26.81 Unsteadiness on feet: PT will work on improving static and dynamic sitting and standing balance as well as proper use of assistive devices to decrease risk of falls. R26.89 Abnormality of gait: PT will work to improve safety and efficiency of gait through neuromotor training and gait training along with instruction on proper use of assistive devices. M62.81 Muscle weakness: PT & OT will work on strengthening exercises to improve functional strength including mixture of closed and open kinetic chain exercises. R53.81 Debility: PT & OT will work on improving overall functional status to improve participation with ADLs, mobility and social involvement. R53.83 Fatigue: PT & OT will work on improving endurance through aerobic exercises and therapeutic activity while monitoring patients tolerance for activity and vital signs as needed. Mood - slight breakdown with therapy. Will continue to monitor for signs of interference with function. Seems ok now Check CXR due to dyspnea, may improve after dialysis DVT ppx: heparin Pain: Continue physical modalities in therapy and pain medications as needed to achieve functional pain control. Sleep: Monitor and address as needed. Bowel: Monitor and address as needed. Appetite: Monitor and address as needed. Discharge planning: Pending therapy progress and care plan meeting. Will continue discussion with therapy team, SW, patient and family. Restrictions/ Precautions: Falls WB status: FWB Functional Hx: ADLs: Independent Cognition: Needed assistance Mobility: Cane and w/c for distance Barriers to Discharge: Decreased mobility and ability to perform self care, balance deficits, weakness, cognition Estimated Length of Stay: 14-18 days Discharge Destination: Home with family with supervision
[2019-03-05] MEDS: PROCRIT IV SCH (16:10)
--- NOTE | 2019-03-05 17:34 | XRay Report ---
CHEST 2 VIEWS INDICATION / CLINICAL INFORMATION: Dyspnea. COMPARISON: Earlier today at 10:06 AM. FINDINGS: SUPPORT DEVICES: None. HEART / MEDIASTINUM: Cardiomegaly is stable. LUNGS / PLEURA: There is increasing parenchymal disease in both perihilar regions and upper lobes, sl ightly greater on the right than the left. No pleural effusion is seen. No pneumothorax. ADDITIONAL FINDINGS: Elevation of the right hemidiaphragm has not changed. IMPRESSION: Increasing parenchymal disease in both mid and upper lung zones. Differential diagnosis i ncludes pneumonia and aspiration. Asymmetric edema is considered less likely. Signer Name: Misha Lockett MD Signed: 03/05/2019 5:29 PM Workstation Name: [id number]
[2019-03-05] MEDS: VANCOMYCIN 750 MG in NACL 0.9% 250ML 250 ML IV SCH (18:34)
[2019-03-05] MEDS: LYRICA PO SCH (21:30)
[2019-03-05] MEDS: ZETIA PO SCH (21:30)
[2019-03-05] MEDS: PRAVACHOL PO SCH (21:31)
[2019-03-06] MEDS: PERCOCET 5/325 PO PRN (01:10)
[2019-03-06] MEDS ORDERED: ZOFRAN IV PRN (02:49)
[2019-03-06] MEDS: PROVENTIL IH PRN (03:24)
[2019-03-06] MEDS: BENADRYL PO PRN (06:24)
[2019-03-06] MEDS: HEPARIN SUB-Q SCH ×3 (06:25→22:41)
[2019-03-06] MEDS: SYNTHROID PO SCH (06:25)
--- NOTE | 2019-03-06 07:41 | Progress Note ---
Assessment and Plan Assessment and plan: Hospitalist rural health consultant for DM in the Inpatient Rehab unit of [facility] Patient is a 78-year-old woman with a history of PVD, DM type 2, ESRD on hemodialysis, GERD, CVA, heart failure, hypertension, hypothyroidism, legally blind and GILBERTO who presented to [facility] inpatient rehab unit following right leg BKA. Hospitalist consulted and following for uncontrolled DM. profiling machine set up operator tool hypoglycemia, suspect Somogyi effect: discontinue long acting insulin and cover with SSI for now. DM Type 2 with hyperglycemia: continue SSI monitor SOB with perihilar edema on 03/05/19 CXR: treated with HD and repeat CXR, shows improvement GILBERTO ON CPAP: Stable GERD: Famotidine ESRD: HD tts, Nephrology following Right foot gangrene with severe PVD s/p BKA: Continue rehab, PT, OT HTN, controlled: low salt diet and treat with antihypertensives HX OF CVA: continue plavix, continue statin, ZETIA Hyperlipidemia: statin Hypothyrodisim: CONTINUE SYNTHROID Anemia: Monitor, on epogen DVT/GI prophylaxis History Interval history: Patient was seen and examined. Follow-up on current diagnosis of DM/hyperglycemia. BG still dropping in laundry agent. Patient denies any chest pain, nausea/vomiting or severe headaches. Imaging, nursing note, chart, labs and old chart reviewed. Discussed with patient. Hospitalist Physical - Physical exam Narrative exam: Gen: WDWN, NAD, Awake, Alert, Orientated HEENT: NCAT, EOMI, PERRL, OP Clear Neck: supple, no adenopathy, no thyromegaly, no JVD CVS/Heart: RRR, normal S1S2, pulses present bilaterally Chest/Lungs: CTA B, Symmetrical chest expansion, good air entry bilaterally GI/Abdomen: soft, NTND, good bowel sounds, no guarding or rebound /Bladder: no suprapubic tenderness, no CVA or paraspinal tenderness Extermity/Skin: no c/c/e, no obvious rash MSK: FROM x 3, with right leg BKA and mike still in place, wound looks ok Neuro: CN 2-12 grossly intact, no new focal deficits Psych: calm - Constitutional Vitals: Temp Pulse Resp BP Pulse Ox 97.7 F 77 21 148/64 98 03/06/19 02:00 03/06/19 03:37 03/06/19 03:37 03/06/19 02:00 03/06/19 01:55 General appearance: Present: no acute distress, well-nourished Results - Labs CBC & Chem 7: 03/06/19 08:33 03/06/19 08:33 Labs: Laboratory Last Values WBC 7.3 K/mm3 (4.5-11.0) 03/04/19 08:29 RBC 3.47 M/mm3 (3.65-5.03) L 03/04/19 08:29 Hgb 8.4 gm/dl (10.1-14.3) L 03/04/19 08:29 Hct 27.0 % (30.3-42.9) L 03/04/19 08:29 MCV 78 fl (79-97) L 03/04/19 08:29 MCH 24 pg (28-32) L 03/04/19 08:29 MCHC 31 % (30-34) 03/04/19 08:29 RDW 23.1 % (13.2-15.2) H 03/04/19 08:29 Plt Count 450 K/mm3 (140-440) H 03/04/19 08:29 Lymph % (Auto) Gas Transfer Operator 02/26/19 11:01 [place] % (Auto) Gas Transfer Operator 02/26/19 11:01 Eos % (Auto) Gas Transfer Operator 02/26/19 11:01 Baso % (Auto) Gas Transfer Operator 02/26/19 11:01 Lymph # Gas Transfer Operator 02/26/19 11:01 [place] # Gas Transfer Operator 02/26/19 11:01 Eos # Gas Transfer Operator 02/26/19 11:01 Baso # Gas Transfer Operator 02/26/19 11:01 Add Manual Diff Complete 02/26/19 11:01 Total Counted 100 02/26/19 11:01 Seg Neutrophils % Gas Transfer Operator 02/26/19 11:01 Seg Neuts % (Manual) 86.0 % (40.0-70.0) H 02/26/19 11:01 0 % 02/26/19 11:01 4.0 % (13.4-35.0) L 02/26/19 11:01 Reactive Lymphs % (Man) 0 % 02/26/19 11:01 9.0 % (0.0-7.3) H 02/26/19 11:01 1.0 % (0.0-4.3) 02/26/19 11:01 0 % (0.0-1.8) 02/26/19 11:01 0 % 02/26/19 11:01 0 % 02/26/19 11:01 0 % 02/26/19 11:01 0 % 02/26/19 11:01 Nucleated RBC % Not Reportable 02/26/19 11:01 Seg Neutrophils # Gas Transfer Operator 02/26/19 11:01 Seg Neutrophils # Man 6.4 K/mm3 (1.8-7.7) 02/26/19 11:01 Band Neutrophils # 0.0 K/mm3 02/26/19 11:01 0.3 K/mm3 (1.2-5.4) L 02/26/19 11:01 Abs React Lymphs (Man) 0.0 K/mm3 02/26/19 11:01 0.7 K/mm3 (0.0-0.8) 02/26/19 11:01 0.1 K/mm3 (0.0-0.4) 02/26/19 11:01 0.0 K/mm3 (0.0-0.1) 02/26/19 11:01 0.0 K/mm3 02/26/19 11:01 0.0 K/mm3 02/26/19 11:01 0.0 K/mm3 02/26/19 11:01 Blast Cells # 0.0 K/mm3 02/26/19 11:01 WBC Morphology Not Reportable 02/26/19 11:01 Hypersegmented Neuts Not Reportable 02/26/19 11:01 Hyposegmented Neuts Not Reportable 02/26/19 11:01 Hypogranular Neuts Not Reportable 02/26/19 11:01 Not Reportable 02/26/19 11:01 Not Reportable 02/26/19 11:01 Not Reportable 02/26/19 11:01 Not Reportable 02/26/19 11:01 Not Reportable 02/26/19 11:01 Not Reportable 02/26/19 11:01 Consistent w auto 02/26/19 11:01 Not Reportable 02/26/19 11:01 Plt Clumps, EDTA Not Reportable 02/26/19 11:01 Not Reportable 02/26/19 11:01 Not Reportable 02/26/19 11:01 Not Reportable 02/26/19 11:01 Plt Morphology Comment Not Reportable 02/26/19 11:01 RBC Morphology Not Reportable 02/26/19 11:01 Dimorphic RBCs Not Reportable 02/26/19 11:01 Few 02/26/19 11:01 1+ 02/26/19 11:01 Not Reportable 02/26/19 11:01 1+ 02/26/19 11:01 Not Reportable 02/26/19 11:01 Not Reportable 02/26/19 11:01 Not Reportable 02/26/19 11:01 Not Reportable 02/26/19 11:01 Not Reportable 02/26/19 11:01 Few 02/26/19 11:01 Not Reportable 02/26/19 11:01 Few 02/26/19 11:01 Not Reportable 02/26/19 11:01 Not Reportable 02/26/19 11:01 Not Reportable 02/26/19 11:01 Not Reportable 02/26/19 11:01 Not Reportable 02/26/19 11:01 Not Reportable 02/26/19 11:01 Not Reportable 02/26/19 11:01 Acanthocytes (Spur) Not Reportable 02/26/19 11:01 Rouleaux Not Reportable 02/26/19 11:01 Not Reportable 02/26/19 11:01 Not Reportable 02/26/19 11:01 Not Reportable 02/26/19 11:01 Not Reportable 02/26/19 11:01 Hem Pathologist Commnt No 02/26/19 11:01 Sodium 136 mmol/L (137-145) L 03/04/19 08:29 Potassium 4.7 mmol/L (3.6-5.0) 03/04/19 08:29 Chloride 96.1 mmol/L (98-107) L 03/04/19 08:29 Carbon Dioxide 27 mmol/L (22-30) 03/04/19 08:29 18 mmol/L 03/04/19 08:29 BUN 21 mg/dL (7-17) H 03/04/19 08:29 3.6 mg/dL (0.7-1.2) H 03/04/19 08:29 Estimated GFR 15 ml/min 03/04/19 08:29 6 % 07/03/19 08:29 Glucose 82 mg/dL (65-100) 03/04/19 08:29 POC Glucose 106 (70-105) H 03/06/19 03:06 Calcium 8.6 mg/dL (8.4-10.2) 03/04/19 08:29 0.40 mg/dL (0.1-1.2) 02/26/19 11:01 AST 32 units/L (5-40) 02/26/19 11:01 ALT 17 units/L (7-56) 02/26/19 11:01 382 units/L (35-129) H 02/26/19 11:01 5.7 g/dL (6.3-8.2) L 02/26/19 11:01 2.6 g/dL (3.9-5) L 02/26/19 11:01 0.8 % 02/26/19 11:01 Random Vancomycin 27.9 ug/mL (0-40.0) 03/03/19 06:35 Hepatitis A IgM Ab Non-reactive (NonReactive) 02/28/19 10:48 Hep Bs Antigen Non-reactive (Negative) 02/28/19 10:48 Hep B Core IgM Ab Non-reactive (NonReactive) 02/28/19 10:48 Non-reactive (NonReactive) 02/28/19 10:48 Active Medications - Current Medications Current Medications: Generic Name Dose Route Start Last Admin Trade Name Freq PRN Reason Stop Dose Admin Albuterol 2.5 mg 02/25/19 18:39 03/06/19 03:24 Proventil IH 2.5 mg Q4HRT PRN Administration Shortness Of Breath Amlodipine Besylate 5 mg 02/26/19 08:00 03/05/19 11:22 Norvasc PO Not Given QDAY JUAQUIN Aspirin 81 mg 02/26/19 08:00 03/05/19 11:12 Halfprin Ec PO 81 mg QDAY JUAQUIN Administration Calcium Acetate 667 mg 02/26/19 07:30 03/05/19 18:34 Phoslo PO 667 mg AC JUAQUIN Administration Clopidogrel Bisulfate 75 mg 02/26/19 08:00 03/05/19 11:12 Plavix PO 75 mg QDAY JUAQUIN Administration Dextrose 50 ml 03/03/19 16:04 03/05/19 00:00 D50w (25gm) Syringe IV 50 ml PRN PRN Administration Hypoglycemia Diphenhydramine HCl 25 mg 02/25/19 18:39 03/06/19 06:24 Benadryl PO 25 mg Q6H PRN Administration Itching Ezetimibe 10 mg 02/25/19 22:00 03/05/19 21:30 Zetia PO 10 mg HS JUAQUIN Administration Epoetin [place] 10,000 unit 02/26/19 13:00 03/05/19 16:10 Procrit IV 10,000 unit ANNI JUAQUIN Administration Famotidine 10 mg 02/25/19 22:00 03/05/19 21:30 Pepcid PO 10 mg BID JUAQUIN Administration Heparin Sodium (Porcine) 5,000 unit 02/25/19 22:00 03/06/19 06:25 Heparin SUB-Q 5,000 unit Q8HR JUAQUIN Administration Sodium Chloride 100 mls @ 999 mls/hr 02/26/19 12:30 Nacl 0.9% IV ANNI PRN Hypotension Vancomycin HCl 750 mg/ Sodium 265 mls @ 166.667 mls/hr 03/05/19 18:00 03/05/19 20:36 Chloride IV 03/19/19 19:36 Infused [email or web address] [facility] Infusion Insulin Human Lispro 0 unit 03/03/19 16:30 03/05/19 23:00 Humalog SUB-Q Not Given ACHS [facility] Protocol Levothyroxine Sodium 50 mcg 02/26/19 06:00 03/06/19 06:25 Synthroid PO 50 mcg DAILY@0600 [facility] Administration Multivit/Ca Carb/B Cmplx/FA/Prenat 1 cap 02/27/19 08:00 03/05/19 12:04 Renal Caps PO 1 cap QDAY [facility] Administration Ondansetron HCl 4 mg 03/06/19 02:49 Zofran IV Q8H PRN Nausea And Vomiting Oxycodone/Acetaminophen 1 tab 02/25/19 18:39 03/06/19 01:10 Percocet 5/325 PO 1 tab Q6H PRN Administration Pain, Moderate (4-6) Pravastatin Sodium 40 mg 02/25/19 21:00 03/05/19 21:31 Pravachol PO 40 mg QHS JUAQUIN Administration Pregabalin 75 mg 02/25/19 22:00 03/05/19 21:30 Lyrica PO 75 mg HS JUAQUIN Administration Simethicone 80 mg 02/28/19 10:11 02/28/19 11:25 Mylicon PO 80 mg Q6H PRN Administration Gas pain Sodium Polystyrene Sulfonate 15 gm 02/25/19 18:39 Kionex PO Q6HR PRN Hyperkalemia Nutrition/Malnutrition Assess - Dietary Evaluation Nutrition/Malnutrition Findings: Nutrition Notes Start: 03/04/19 17:30 Freq: Status: Active Protocol: Document 03/04/19 17:30 RM (Rec: 03/04/19 17:31 RM [id number]) Nutrition Notes Need for Assessment generated from: LOS Initial or Follow up Brief Note Height 4 ft 11 in Weight 67.8 kg [place] Body Weight (kg) 43.18 BMI 30.2 Subjective/Other Information Screened for LOS. Recorded PO intake 81% X 4 meals. Nutrition Intervention Revisit per MD consult or patient Sign Off request:
[2019-03-06] MEDS: HALFPRIN EC PO SCH (08:00)
--- NOTE | 2019-03-06 08:20 | XRay Report ---
CHEST 1 VIEW INDICATION: sob, perihilar edema. Follow-up shortness of breath COMPARISON: 03/05/2019 at 1720 hours FINDINGS: Support devices: None. Heart: Mild cardiomegaly is stable. Lungs/Pleura: Decreased bilateral pulmonary venous congestion/edema by 25-50%. The lungs are generall y clear. No consolidation, large pleural effusion or pneumothorax. Additional findings: None. IMPRESSION: 1. Mild improvement in pulmonary edema Signer Name: Eric Gray Jr, MD Signed: 03/06/2019 8:16 AM Workstation Name: [id number]
[2019-03-06 08:59] LABS: Hematocrit 25.9 % (30.3-42.9); Hemoglobin 8.1 gm/dl (10.1-14.3); Mean Corpuscular HGB Conc 31 % (30-34); Mean Corpuscular Volume 79 fl (79-97); Platelet Count 421 K/mm3 (140-440); Red Blood Count 3.28 M/mm3 (3.65-5.03)
[2019-03-06 09:15] LABS: Red Cell Distribution Width 22.9 % (13.2-15.2)
[2019-03-06 09:25] LABS: Calcium 8.9 mg/dL (8.4-10.2)
[2019-03-06] MEDS: PHOSLO PO SCH ×3 (11:24→16:58)
[2019-03-06] MEDS: Renal Caps PO SCH (12:30)
[2019-03-06] MEDS: NORVASC PO SCH (12:30)
[2019-03-06] MEDS: PEPCID PO SCH (12:30)
[2019-03-06] MEDS: PLAVIX PO SCH (12:30)
[2019-03-06] MEDS: HumaLOG SUB-Q SCH ×4 (12:31→23:22)
--- NOTE | 2019-03-06 12:38 | Progress Note ---
Assessment and Plan 1. ESRD: Continue hemodialysis three times a week, TTS schedule. 2. Anemia: S/p PRBC. Epogen with HD. H/H is stable. 3. PAD: S/p R LE angioplasty and R BKA. 4. GILBERTO: CPAP. 5. DM type 2. 6. HTN: BP well controlled. In Acute rehab unit. Subjective Date of service: 03/06/19 Principal diagnosis: R BKA Interval history: Patient was seen and examined at the bedside. Doing ok. Objective - Vital Signs Vital signs: Vital Signs - 12hr 03/06/19 03/06/19 03/06/19 01:55 01:58 02:00 Temperature 97.9 F 97.7 F Pulse Rate 69 75 Pulse Rate [ Bilateral Throughout] Respiratory 18 3 L Rate Respiratory Rate [Bilateral Throughout] Blood Pressure 160/64 Blood Pressure 148/64 [Right] O2 Sat by Pulse 98 Oximetry 03/06/19 03/06/19 03/06/19 03:20 03:37 08:02 Temperature 98.0 F Pulse Rate 74 Pulse Rate [ 79 77 Bilateral Throughout] Respiratory 18 Rate Respiratory 20 21 Rate [Bilateral Throughout] Blood Pressure 135/74 Blood Pressure [Right] O2 Sat by Pulse 100 Oximetry - General Appearance General appearance: well-developed, well-nourished, appears stated age, other (no distress) EENT: ATNC, hearing diminished Neck: no JVD, supple Respiratory: Present: Clear to Ascultation Cardiology: regular, S1S2, no murmurs Gastrointestinal: normoactive bowel sounds, no tenderness, no distended Integumentary: no rash Neurologic: no asterixis, other (diminished vision) Musculoskeletal: other (no edema, L arm AVF) - Lab 03/06/19 08:33 03/06/19 08:33 Most recent lab results Calcium 8.9 mg/dL (8.4-10.2) 03/06/19 08:33 Medications & Allergies - Medications Allergies/Adverse Reactions: Allergies Iodinated Contrast- Oral and IV Dye Allergy (Verified 11/25/18 15:48) Hives, Rash Penicillins Allergy (Verified 11/25/18 15:48) Hives Home Medications: Home Medications Medication Instructions Recorded Confirmed Last Taken Type B Complex 11/Folic/C/Biot/Zinc 1 each PO DAILY 09/06/15 02/25/19 11/25/18 20:00 History [Dialyvite with Zinc Tablet] Lispro Insulin [HumaLOG] 7 unit SQ AC 11/25/18 02/25/19 Unknown History Pantoprazole Sodium 40 mg PO DAILY 11/25/18 02/25/19 11/26/18 05:00 History amLODIPine [Norvasc] 5 mg PO DAILY 11/25/18 02/25/19 11/28/18 History 2.5 Ranitidine HCl [Zantac] 300 mg PO BID 02/16/19 02/25/19 Unknown History Calcium Acetate 667 mg PO AC 02/18/19 02/25/19 Unknown History Levothyroxine 0.05 mg PO QDAY 02/18/19 02/25/19 Unknown History Lyrica 75 mg PO HS 02/18/19 02/25/19 Unknown History Pravastatin 40 mg PO HS 02/18/19 02/25/19 Unknown History Zetia 10 mg PO HS 02/18/19 02/25/19 Unknown History Aspirin EC 81 mg PO QDAY #30 tablet 02/25/19 02/25/19 Unknown Rx Clopidogrel [Plavix] 75 mg PO QDAY #30 tablet 02/25/19 02/25/19 Unknown Rx oxyCODONE /ACETAMINOPHEN [Percocet 1 tab PO Q6H PRN #14 tablet 02/25/19 02/25/19 Unknown Rx 5/325 mg] Active Medications: Generic Name Dose Route Start Last Admin Trade Name Freq PRN Reason Stop Dose Admin Albuterol 2.5 mg 02/25/19 18:39 03/06/19 03:24 Proventil IH 2.5 mg Q4HRT PRN Administration Shortness Of Breath Amlodipine Besylate 5 mg 02/26/19 08:00 03/06/19 12:30 Norvasc PO 5 mg QDAY JUAQUIN Administration Aspirin 81 mg 02/26/19 08:00 03/05/19 11:12 Halfprin Ec PO 81 mg QDAY JUAQUIN Administration Calcium Acetate 667 mg 02/26/19 07:30 03/06/19 12:30 Phoslo PO 667 mg AC JUAQUIN Administration Clopidogrel Bisulfate 75 mg 02/26/19 08:00 03/06/19 12:30 Plavix PO 75 mg QDAY JUAQUIN Administration Dextrose 50 ml 03/03/19 16:04 03/05/19 00:00 D50w (25gm) Syringe IV 50 ml PRN PRN Administration Hypoglycemia Diphenhydramine HCl 25 mg 02/25/19 18:39 03/06/19 06:24 Benadryl PO 25 mg Q6H PRN Administration Itching Ezetimibe 10 mg 02/25/19 22:00 03/05/19 21:30 Zetia PO 10 mg HS JUAQUIN Administration Epoetin [place] 10,000 unit 02/26/19 13:00 03/05/19 16:10 Procrit IV 10,000 unit ANNI JUAQUIN Administration Famotidine 10 mg 02/25/19 22:00 03/06/19 12:30 Pepcid PO 10 mg BID JUAQUIN Administration Heparin Sodium (Porcine) 5,000 unit 02/25/19 22:00 03/06/19 06:25 Heparin SUB-Q 5,000 unit Q8HR JUAQUIN Administration Sodium Chloride 100 mls @ 999 mls/hr 02/26/19 12:30 Nacl 0.9% IV ANNI PRN Hypotension Vancomycin HCl 750 mg/ Sodium 265 mls @ 166.667 mls/hr 03/05/19 18:00 03/05/19 20:36 Chloride IV 03/19/19 19:36 Infused [email or web address]@1800 [facility] Infusion Insulin Human Lispro 0 unit 03/03/19 16:30 03/06/19 12:31 Humalog SUB-Q Not Given ACHS [facility] Protocol Levothyroxine Sodium 50 mcg 02/26/19 06:00 03/06/19 06:25 Synthroid PO 50 mcg DAILY@0600 [facility] Administration Multivit/Ca Carb/B Cmplx/FA/Prenat 1 cap 02/27/19 08:00 03/06/19 12:30 Renal Caps PO 1 cap QDAY [facility] Administration Ondansetron HCl 4 mg 03/06/19 02:49 Zofran IV Q8H PRN Nausea And Vomiting Oxycodone/Acetaminophen 1 tab 02/25/19 18:39 03/06/19 01:10 Percocet 5/325 PO 1 tab Q6H PRN Administration Pain, Moderate (4-6) Pravastatin Sodium 40 mg 02/25/19 21:00 03/05/19 21:31 Pravachol PO 40 mg QHS JUAQUIN Administration Pregabalin 75 mg 02/25/19 22:00 03/05/19 21:30 Lyrica PO 75 mg HS JUAQUIN Administration Simethicone 80 mg 02/28/19 10:11 02/28/19 11:25 Mylicon PO 80 mg Q6H PRN Administration Gas pain Sodium Polystyrene Sulfonate 15 gm 02/25/19 18:39 Kionex PO Q6HR PRN Hyperkalemia
[2019-03-06] MEDS ORDERED: MIRALAX 3350 PO PRN (22:22)
[2019-03-06] MEDS: LYRICA PO SCH (22:41)
[2019-03-06] MEDS: ZETIA PO SCH (22:41)
[2019-03-06] MEDS: PRAVACHOL PO SCH (22:41)
[2019-03-06] MEDS: COLACE PO SCH (23:22)
[2019-03-07] MEDS: HEPARIN SUB-Q SCH ×3 (06:33→22:08)
[2019-03-07] MEDS: SYNTHROID PO SCH (06:33)
[2019-03-07] MEDS: PROVENTIL IH PRN (07:24)
[2019-03-07] MEDS: HumaLOG SUB-Q SCH ×5 (07:53→22:29)
[2019-03-07] MEDS: PROTONIX PO SCH (08:45)
[2019-03-07] MEDS: PLAVIX PO SCH (08:45)
[2019-03-07] MEDS: HALFPRIN EC PO SCH (08:45)
[2019-03-07] MEDS: COLACE PO SCH ×2 (08:45→22:07)
[2019-03-07] MEDS: Renal Caps PO SCH (08:45)
[2019-03-07] MEDS: NORVASC PO SCH (08:45)
[2019-03-07] MEDS: PHOSLO PO SCH ×3 (08:45→18:04)
--- NOTE | 2019-03-07 11:16 | Progress Note ---
Assessment and Plan 1. ESRD: Continue hemodialysis three times a week, TTS schedule. Suspected volume overload, UF: 3-4 lts as tolerated. 2. Anemia: S/p PRBC. Epogen with HD. H/H is stable. 3. PAD: S/p R LE angioplasty and R BKA. 4. GILBERTO: CPAP. 5. DM type 2. 6. HTN: BP well controlled. In Acute rehab unit. Subjective Date of service: 03/07/19 Principal diagnosis: R BKA Interval history: Patient was seen and examined at the bedside. C/o intermittent sob. Objective - Vital Signs Vital signs: Vital Signs - 12hr 03/07/19 03/07/19 03/07/19 04:45 07:19 07:20 Temperature 98.5 F 98.1 F Pulse Rate 72 75 Pulse Rate [ 82 Bilateral Throughout] Respiratory 19 22 Rate Respiratory 20 Rate [Bilateral Throughout] Blood Pressure 158/63 Blood Pressure 135/66 [Right] O2 Sat by Pulse 98 100 Oximetry 03/07/19 03/07/19 03/07/19 07:27 07:30 08:45 Temperature Pulse Rate 82 Pulse Rate [ 82 Bilateral Throughout] Respiratory Rate Respiratory 20 Rate [Bilateral Throughout] Blood Pressure 158/63 Blood Pressure [Right] O2 Sat by Pulse 98 Oximetry - General Appearance General appearance: well-developed, well-nourished, appears stated age, other (no distress) EENT: ATNC, PERRL Neck: supple Respiratory: Present: Clear to Ascultation Cardiology: regular, S1S2, no murmurs Gastrointestinal: normoactive bowel sounds, no tenderness, no distended Integumentary: no rash Neurologic: no asterixis, other (decreased vision) Musculoskeletal: other (R BKA, no edema, L arm AVF) - Lab 03/06/19 08:33 03/06/19 08:33 Most recent lab results Calcium 8.9 mg/dL (8.4-10.2) 03/06/19 08:33 Medications & Allergies - Medications Allergies/Adverse Reactions: Allergies Iodinated Contrast- Oral and IV Dye Allergy (Verified 11/25/18 15:48) Hives, Rash Penicillins Allergy (Verified 11/25/18 15:48) Hives Home Medications: Home Medications Medication Instructions Recorded Confirmed Last Taken Type B Complex 11/Folic/C/Biot/Zinc 1 each PO DAILY 09/06/15 02/25/19 11/25/18 20:00 History [Dialyvite with Zinc Tablet] Lispro Insulin [HumaLOG] 7 unit SQ AC 11/25/18 02/25/19 Unknown History Pantoprazole Sodium 40 mg PO DAILY 11/25/18 02/25/19 11/26/18 05:00 History amLODIPine [Norvasc] 5 mg PO DAILY 11/25/18 02/25/19 11/28/18 History 2.5 Ranitidine HCl [Zantac] 300 mg PO BID 02/16/19 02/25/19 Unknown History Calcium Acetate 667 mg PO AC 02/18/19 02/25/19 Unknown History Levothyroxine 0.05 mg PO QDAY 02/18/19 02/25/19 Unknown History Lyrica 75 mg PO HS 02/18/19 02/25/19 Unknown History Pravastatin 40 mg PO HS 02/18/19 02/25/19 Unknown History Zetia 10 mg PO HS 02/18/19 02/25/19 Unknown History Aspirin EC 81 mg PO QDAY #30 tablet 02/25/19 02/25/19 Unknown Rx Clopidogrel [Plavix] 75 mg PO QDAY #30 tablet 02/25/19 02/25/19 Unknown Rx oxyCODONE /ACETAMINOPHEN [Percocet 1 tab PO Q6H PRN #14 tablet 02/25/19 02/25/19 Unknown Rx 5/325 mg] Active Medications: Generic Name Dose Route Start Last Admin Trade Name Freq PRN Reason Stop Dose Admin Albuterol 2.5 mg 02/25/19 18:39 03/07/19 07:24 Proventil IH 2.5 mg Q4HRT PRN Administration Shortness Of Breath Amlodipine Besylate 5 mg 02/26/19 08:00 03/07/19 08:45 Norvasc PO 5 mg QDAY JUAQUIN Administration Aspirin 81 mg 02/26/19 08:00 03/07/19 08:45 Halfprin Ec PO 81 mg QDAY JUAQUIN Administration Calcium Acetate 667 mg 02/26/19 07:30 03/07/19 08:45 Phoslo PO 667 mg AC JUAQUIN Administration Clopidogrel Bisulfate 75 mg 02/26/19 08:00 03/07/19 08:45 Plavix PO 75 mg QDAY JUAQUIN Administration Dextrose 50 ml 03/03/19 16:04 03/05/19 00:00 D50w (25gm) Syringe IV 50 ml PRN PRN Administration Hypoglycemia Diphenhydramine HCl 25 mg 02/25/19 18:39 03/06/19 06:24 Benadryl PO 25 mg Q6H PRN Administration Itching Docusate Sodium 100 mg 03/06/19 23:00 03/07/19 08:45 Colace PO 100 mg BID JUAQUIN Administration Ezetimibe 10 mg 02/25/19 22:00 03/06/19 22:41 Zetia PO 10 mg HS JUAQUIN Administration Epoetin [place] 10,000 unit 02/26/19 13:00 03/05/19 16:10 Procrit IV 10,000 unit ANNI [facility] Administration Heparin Sodium (Porcine) 5,000 unit 02/25/19 22:00 03/07/19 06:33 Heparin SUB-Q 5,000 unit Q8HR JUAQUIN Administration Sodium Chloride 100 mls @ 999 mls/hr 02/26/19 12:30 Nacl 0.9% IV ANNI PRN Hypotension Vancomycin HCl 750 mg/ Sodium 265 mls @ 166.667 mls/hr 03/05/19 18:00 03/05/19 20:36 Chloride IV 03/19/19 19:36 Infused [email or web address]@1800 [facility] Infusion Insulin Human Lispro 0 unit 03/03/19 16:30 03/07/19 07:53 Humalog SUB-Q Not Given ACHS [facility] Protocol Levothyroxine Sodium 50 mcg 02/26/19 06:00 03/07/19 06:33 Synthroid PO 50 mcg DAILY@0600 [facility] Administration Multivit/Ca Carb/B Cmplx/FA/Prenat 1 cap 02/27/19 08:00 03/07/19 08:45 Renal Caps PO 1 cap QDAY JUAQUIN Administration Ondansetron HCl 4 mg 03/06/19 02:49 Zofran IV Q8H PRN Nausea And Vomiting Oxycodone/Acetaminophen 1 tab 02/25/19 18:39 03/06/19 01:10 Percocet 5/325 PO 1 tab Q6H PRN Administration Pain, Moderate (4-6) Pantoprazole Sodium 40 mg 03/07/19 08:00 03/07/19 08:45 Protonix PO 40 mg QDAY JUAQUIN Administration Polyethylene Glycol 17 gm 03/06/19 22:22 Miralax 3350 PO QDAY PRN Constipation Pravastatin Sodium 40 mg 02/25/19 21:00 03/06/19 22:41 Pravachol PO 40 mg QHS JUAQUIN Administration Pregabalin 75 mg 02/25/19 22:00 03/06/19 22:41 Lyrica PO 75 mg HS JUAQUIN Administration Simethicone 80 mg 02/28/19 10:11 02/28/19 11:25 Mylicon PO 80 mg Q6H PRN Administration Gas pain Sodium Polystyrene Sulfonate 15 gm 02/25/19 18:39 Kionex PO Q6HR PRN Hyperkalemia
--- NOTE | 2019-03-07 13:08 | Progress Note ---
Assessment and Plan Assessment and plan: Hospitalist corporate travel consultant for DM in the Inpatient Rehab unit of [facility] Patient is a 78-year-old woman with a history of PVD, DM type 2, ESRD on hemodialysis, GERD, CVA, heart failure, hypertension, hypothyroidism, legally blind and GILBERTO who presented to [facility] inpatient rehab unit following right leg BKA. Hospitalist consulted and following for uncontrolled DM. 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 DM Type 2 with hyperglycemia: continue SSI monitor SOB with perihilar edema on 03/05/19 CXR: treated with HD and repeat CXR, shows improvement GILBERTO ON CPAP: Stable GERD: Famotidine ESRD: HD tts, Nephrology following Right foot gangrene with severe PVD s/p BKA: Continue rehab, PT, OT HTN, controlled: low salt diet and treat with antihypertensives HX OF CVA: continue plavix, continue statin, ZETIA Hyperlipidemia: statin Hypothyrodisim: CONTINUE SYNTHROID Anemia: Monitor, on epogen DVT/GI prophylaxis Blood glucose is very labile because patient has Brittle Diabetes Mellitus. Long acting insulin cause sticker hand hypoglycemia; nonetheless, her blood sugars are very high during mealtime, so I will add fast acting insulin with meals and increase SSI to high dose protocol. Will continue to monitor History Interval history: Patient was seen and examined. Follow-up on current diagnosis of DM/hyperglycemia. BG still dropping in sticker hand. Patient denies any chest pain, nausea/vomiting or severe headaches. Imaging, nursing note, chart, labs and old chart reviewed. Discussed with patient. Hospitalist Physical - Physical exam Narrative exam: Gen: WDWN, NAD, Awake, Alert, Orientated HEENT: NCAT, EOMI, PERRL, OP Clear Neck: supple, no adenopathy, no thyromegaly, no JVD CVS/Heart: RRR, normal S1S2, pulses present bilaterally Chest/Lungs: CTA B, Symmetrical chest expansion, good air entry bilaterally GI/Abdomen: soft, NTND, good bowel sounds, no guarding or rebound /Bladder: no suprapubic tenderness, no CVA or paraspinal tenderness Extermity/Skin: no c/c/e, no obvious rash MSK: FROM x 3, with right leg BKA and mike still in place, wound looks ok Neuro: CN 2-12 grossly intact, no new focal deficits Psych: calm - Constitutional Vitals: Temp Pulse Resp BP Pulse Ox 98.1 F 82 20 158/63 98 03/07/19 07:19 03/07/19 08:45 03/07/19 07:27 03/07/19 08:45 03/07/19 07:30 General appearance: Present: no acute distress, well-nourished Results - Labs CBC & Chem 7: 03/06/19 08:33 03/06/19 08:33 Labs: Laboratory Last Values WBC 5.7 K/mm3 (4.5-11.0) 03/06/19 08:33 RBC 3.28 M/mm3 (3.65-5.03) L 03/06/19 08:33 Hgb 8.1 gm/dl (10.1-14.3) L 03/06/19 08:33 Hct 25.9 % (30.3-42.9) L 03/06/19 08:33 MCV 79 fl (79-97) 03/06/19 08:33 MCH 25 pg (28-32) L 03/06/19 08:33 MCHC 31 % (30-34) 03/06/19 08:33 RDW 22.9 % (13.2-15.2) H 03/06/19 08:33 Plt Count 421 K/mm3 (140-440) 03/06/19 08:33 Lymph % (Auto) Music Researcher 02/26/19 11:01 [place]acy % (Auto) Music Researcher 02/26/19 11:01 Eos % (Auto) Music Researcher 02/26/19 11:01 Baso % (Auto) Music Researcher 02/26/19 11:01 Lymph # Music Researcher 02/26/19 11:01 Willacy # Music Researcher 02/26/19 11:01 Eos # Music Researcher 02/26/19 11:01 Baso # Music Researcher 02/26/19 11:01 Add Manual Diff Complete 02/26/19 11:01 Total Counted 100 02/26/19 11:01 Seg Neutrophils % Music Researcher 02/26/19 11:01 Seg Neuts % (Manual) 86.0 % (40.0-70.0) H 02/26/19 11:01 0 % 02/26/19 11:01 4.0 % (13.4-35.0) L 02/26/19 11:01 Reactive Lymphs % (Man) 0 % 02/26/19 11:01 9.0 % (0.0-7.3) H 02/26/19 11:01 1.0 % (0.0-4.3) 02/26/19 11:01 0 % (0.0-1.8) 02/26/19 11:01 0 % 02/26/19 11:01 0 % 02/26/19 11:01 0 % 02/26/19 11:01 0 % 02/26/19 11:01 Nucleated RBC % Not Reportable 02/26/19 11:01 Seg Neutrophils # Music Researcher 02/26/19 11:01 Seg Neutrophils # Man 6.4 K/mm3 (1.8-7.7) 02/26/19 11:01 Band Neutrophils # 0.0 K/mm3 02/26/19 11:01 0.3 K/mm3 (1.2-5.4) L 02/26/19 11:01 Abs React Lymphs (Man) 0.0 K/mm3 02/26/19 11:01 0.7 K/mm3 (0.0-0.8) 02/26/19 11:01 0.1 K/mm3 (0.0-0.4) 02/26/19 11:01 0.0 K/mm3 (0.0-0.1) 02/26/19 11:01 0.0 K/mm3 02/26/19 11:01 0.0 K/mm3 02/26/19 11:01 0.0 K/mm3 02/26/19 11:01 Blast Cells # 0.0 K/mm3 02/26/19 11:01 WBC Morphology Not Reportable 02/26/19 11:01 Hypersegmented Neuts Not Reportable 02/26/19 11:01 Hyposegmented Neuts Not Reportable 02/26/19 11:01 Hypogranular Neuts Not Reportable 02/26/19 11:01 Not Reportable 02/26/19 11:01 Not Reportable 02/26/19 11:01 Not Reportable 02/26/19 11:01 Not Reportable 02/26/19 11:01 Not Reportable 02/26/19 11:01 Not Reportable 02/26/19 11:01 Consistent w auto 02/26/19 11:01 Not Reportable 02/26/19 11:01 Plt Clumps, EDTA Not Reportable 02/26/19 11:01 Not Reportable 02/26/19 11:01 Not Reportable 02/26/19 11:01 Not Reportable 02/26/19 11:01 Plt Morphology Comment Not Reportable 02/26/19 11:01 RBC Morphology Not Reportable 02/26/19 11:01 Dimorphic RBCs Not Reportable 02/26/19 11:01 Few 02/26/19 11:01 1+ 02/26/19 11:01 Not Reportable 02/26/19 11:01 1+ 02/26/19 11:01 Not Reportable 02/26/19 11:01 Not Reportable 02/26/19 11:01 Not Reportable 02/26/19 11:01 Not Reportable 02/26/19 11:01 Not Reportable 02/26/19 11:01 Few 02/26/19 11:01 Not Reportable 02/26/19 11:01 Few 02/26/19 11:01 Not Reportable 02/26/19 11:01 Not Reportable 02/26/19 11:01 Not Reportable 02/26/19 11:01 Not Reportable 02/26/19 11:01 Not Reportable 02/26/19 11:01 Not Reportable 02/26/19 11:01 Not Reportable 02/26/19 11:01 Acanthocytes (Spur) Not Reportable 02/26/19 11:01 Rouleaux Not Reportable 02/26/19 11:01 Not Reportable 02/26/19 11:01 Not Reportable 02/26/19 11:01 Not Reportable 02/26/19 11:01 Not Reportable 02/26/19 11:01 Hem Pathologist Commnt No 02/26/19 11:01 Sodium 134 mmol/L (137-145) L 03/06/19 08:33 Potassium 5.0 mmol/L (3.6-5.0) 03/06/19 08:33 Chloride 93.6 mmol/L (98-107) L 03/06/19 08:33 Carbon Dioxide 26 mmol/L (22-30) 03/06/19 08:33 19 mmol/L 03/06/19 08:33 BUN 18 mg/dL (7-17) H 03/06/19 08:33 3.4 mg/dL (0.7-1.2) H 03/06/19 08:33 Estimated GFR 16 ml/min 03/06/19 08:33 5 % 03/06/19 08:33 Glucose 122 mg/dL (65-100) H 03/06/19 08:33 POC Glucose 479 (70-105) H 03/07/19 13:05 Calcium 8.9 mg/dL (8.4-10.2) 03/06/19 08:33 0.40 mg/dL (0.1-1.2) 02/26/19 11:01 AST 32 units/L (5-40) 02/26/19 11:01 ALT 17 units/L (7-56) 02/26/19 11:01 382 units/L (35-129) H 02/26/19 11:01 5.7 g/dL (6.3-8.2) L 02/26/19 11:01 2.6 g/dL (3.9-5) L 02/26/19 11:01 0.8 % 02/26/19 11:01 Random Vancomycin 27.9 ug/mL (0-40.0) 03/03/19 06:35 Hepatitis A IgM Ab Non-reactive (NonReactive) 02/28/19 10:48 Hep Bs Antigen Non-reactive (Negative) 02/28/19 10:48 Hep B Core IgM Ab Non-reactive (NonReactive) 02/28/19 10:48 Non-reactive (NonReactive) 02/28/19 10:48 Active Medications - Current Medications Current Medications: Generic Name Dose Route Start Last Admin Trade Name Freq PRN Reason Stop Dose Admin Albuterol 2.5 mg 02/25/19 18:39 03/07/19 07:24 Proventil IH 2.5 mg Q4HRT PRN Administration Shortness Of Breath Amlodipine Besylate 5 mg 02/26/19 08:00 03/07/19 08:45 Norvasc PO 5 mg QDAY JUAQUIN Administration Aspirin 81 mg 02/26/19 08:00 03/07/19 08:45 Halfprin Ec PO 81 mg QDAY JUAQUIN Administration Calcium Acetate 667 mg 02/26/19 07:30 03/07/19 08:45 Phoslo PO 667 mg AC [facility] Administration Clopidogrel Bisulfate 75 mg 02/26/19 08:00 03/07/19 08:45 Plavix PO 75 mg QDAY [facility] Administration Dextrose 50 ml 03/03/19 16:04 03/05/19 00:00 D50w (25gm) Syringe IV 50 ml PRN PRN Administration Hypoglycemia Diphenhydramine HCl 25 mg 02/25/19 18:39 03/06/19 06:24 Benadryl PO 25 mg Q6H PRN Administration Itching Docusate Sodium 100 mg 03/06/19 23:00 03/07/19 08:45 Colace PO 100 mg BID JUAQUIN Administration Ezetimibe 10 mg 02/25/19 22:00 03/06/19 22:41 Zetia PO 10 mg HS [facility] Administration Epoetin [place] 10,000 unit 02/26/19 13:00 03/05/19 16:10 Procrit IV 10,000 unit ANNI [facility] Administration Heparin Sodium (Porcine) 5,000 unit 02/25/19 22:00 03/07/19 06:33 Heparin SUB-Q 5,000 unit Q8HR [facility] Administration Sodium Chloride 100 mls @ 999 mls/hr 02/26/19 12:30 Nacl 0.9% IV ANNI PRN Hypotension Vancomycin HCl 750 mg/ Sodium 265 mls @ 166.667 mls/hr 03/05/19 18:00 03/05/19 20:36 Chloride IV 03/19/19 19:36 Infused TuThSa@1800 [facility] Infusion Insulin Human Lispro 0 unit 03/03/19 16:30 03/07/19 07:53 Humalog SUB-Q Not Given [facility] Protocol Insulin Human Lispro 2 unit 03/07/19 16:30 Humalog SUB-Q [facility] Levothyroxine Sodium 50 mcg 02/26/19 06:00 03/07/19 06:33 Synthroid PO 50 mcg DAILY@0600 [facility] Administration Multivit/Ca Carb/B Cmplx/FA/Prenat 1 cap 02/27/19 08:00 03/07/19 08:45 Renal Caps PO 1 cap QDAY [facility] Administration Ondansetron HCl 4 mg 03/06/19 02:49 Zofran IV Q8H PRN Nausea And Vomiting Oxycodone/Acetaminophen 1 tab 02/25/19 18:39 07/05/19 01:10 Percocet 5/325 PO 1 tab Q6H PRN Administration Pain, Moderate (4-6) Pantoprazole Sodium 40 mg 03/07/19 08:00 03/07/19 08:45 Protonix PO 40 mg QDAY JUAQUIN Administration Polyethylene Glycol 17 gm 03/06/19 22:22 Miralax 3350 PO QDAY PRN Constipation Pravastatin Sodium 40 mg 02/25/19 21:00 03/06/19 22:41 Pravachol PO 40 mg QHS JUAQUIN Administration Pregabalin 75 mg 02/25/19 22:00 03/06/19 22:41 Lyrica PO 75 mg HS JUAQUIN Administration Simethicone 80 mg 02/28/19 10:11 02/28/19 11:25 Mylicon PO 80 mg Q6H PRN Administration Gas pain Sodium Polystyrene Sulfonate 15 gm 02/25/19 18:39 Kionex PO Q6HR PRN Hyperkalemia Nutrition/Malnutrition Assess - Dietary Evaluation Nutrition/Malnutrition Findings: Nutrition Notes Start: 03/04/19 17:30 Freq: Status: Active Protocol: Document 03/04/19 17:30 RM (Rec: 03/04/19 17:31 RM [id number]) Nutrition Notes Need for Assessment generated from: LOS Initial or Follow up Brief Note Height 4 ft 11 in Weight 67.8 kg [place] Body Weight (kg) 43.18 BMI 30.2 Subjective/Other Information Screened for LOS. Recorded PO intake 81% X 4 meals. Nutrition Intervention Revisit per MD consult or patient Sign Off request:
--- NOTE | 2019-03-07 15:11 | Progress Note ---
Subjective Date of service: 03/07/19 Principal diagnosis: R BKA Interval history: 78-year-old female with right foot pain presented to ER and found to have sepsis. Amputation was previously discussed for the right lower extremity gangrene however family refused. Patient had been undergoing treatment HBOT without resolution. ID was consulted and started antibiotics. Vascular surgery performed angiography. Afterwards she was scheduled for a right BKA which proceeded without incident. After the patient was medically stabilized they were transferred for further rehabilitation. All available medical records have been reviewed. Plan of care was discussed with patient and family. Patient is participating in therapy and making reasonable progress. Taking rest breaks as needed. -BM. GLU is variable, lantus was stopped. monitor. Awaiting ID input on removal from isolation. CXRs reviewed, improvement seen after dialysis. Constipated - add suppository. ACCESS LIAISON added miralax earlier. Some phantom sensation but no overt phantom pain. Standing with therapy and assistance for short period, SBT. Continue therapy as planned. No signs of infection (residual limb not visualized today), continues vanc on dialysis days. Will need to see surgeon on 03/10/2019 for follow up. All records, vitals, labs and medications were reviewed. No other issues per patient, nursing or therapy. Objective - Exam Narrative Exam: MUSCULOSKELETAL SPECIALTY EXAM CONSTITUTIONAL: Well developed, well nourished, appropriately groomed EENT: Legally blind. Oropharynx clear. RESPIRATORY: Clear to auscultation bilaterally, no increased work of breathing, no crackles. Supplemental O2 CARDIOVASCULAR: Regular Rate/ Rhythm, no swelling, edema or tenderness in BUE or BLE. Pulses palpable in all extremities. All extremities warm. Thrill in LUE GI: + bowel sounds, soft, nondistended. INTEGUMENTARY: LLE has blisters which have improved with decrease in edema. Otherwise, normal, no lesion, rash, masses or bruising noted in extremities. Surgical wound on right lower extremity is healing well (not visualized today) MUSCULOSKELETAL: Right BKA, otherwise BUE and BLE normal without defect, crepitus, subluxation, effusion, arthritic changes or TTP. BUE 4/5, good ROM, with normal tone. LLE 4-/5 good ROM, with normal tone, RLE decreased ROM secondary to pain NEURO: CN 2-12 grossly intact. Sensation intact in all extremities. No tremor noted in 4 extremities. POSTURE and GAIT: Sitting posture good. Balance appears reasonable. Gait deferred, based on standing performance she may not be able to ambulate with just a walker without prosthesis.. PSYCH: Alert, orientated x2, slightly confused at times and decreased memory, affect appears normal. - Constitutional Vitals: Vital Signs - 12hr 03/07/19 03/07/19 03/07/19 04:45 07:19 07:20 Temperature 36.9 C 36.7 C Pulse Rate 72 75 Pulse Rate [ 82 Bilateral Throughout] Respiratory 19 22 Rate Respiratory 20 Rate [Bilateral Throughout] Blood Pressure 158/63 Blood Pressure 135/66 [Right] O2 Sat by Pulse 98 100 Oximetry 03/07/19 03/07/19 03/07/19 07:27 07:30 08:45 Temperature Pulse Rate 82 Pulse Rate [ 82 Bilateral Throughout] Respiratory Rate Respiratory 20 Rate [Bilateral Throughout] Blood Pressure 158/63 Blood Pressure [Right] O2 Sat by Pulse 98 Oximetry - Allied health notes Allied health notes reviewed: nursing, PT, OT FIMS assessment as documented by PT/OT/ST: Grooming Patient cleans teeth/dentures: Yes Patient holguin/brushes hair: Yes Patient washes, rinses and Yes dries face: Patient washes, rinses and Yes dries hands: Patient shaves: No Patient applies make-up: No Patient performs (no make-up/ 12/04 (100%) shaving): Grooming FIM Score 4. Minimal Assistance (Patient = 75% or more. Needs touching.) Toileting Toileting Device Bedpan Toileting FIM Score 2. Maximal Assistance (Patient = 25% or more) Social interaction/Memory/Problem solving Social Interaction FIM Score 5. Supervision (Needs supv. <10%. Needs encouragement to participate.) Memory FIM Score 5. Supervision (Needs cueing <10%, stressful/ unfamiliar situations.) Problem Solving FIM Score 5. Supervision (Needs cueing <10% to solve routine problems.) Transfers Mode of Locomotion: Wheelchair Bed/Chair/Wheelchair Transfers 3. Moderate Assistance (Patient = 50% or more. FIM Score Some lifting.) Toilet Transfers FIM Score 1. Total Assistance (Patient less than 25%. 2 or more persons.) Patient transferred to: Shower Shower Transfers FIM Score 1. Total Assistance (Patient less than 25%. 2 or more persons.) Locomotion- Stairs Stairs FIM Score 0. Activity does not occur Locomotion- walk/wheelchair Most Frequent Mode of Wheelchair Locomotion: Ambulation Distance 0 Walking FIM Score 0. Activity does not occur Wheelchair Propulsion Distance 150 Wheelchair FIM Score 5. Supervision (Minimum 150 ft. supv./cues or 50 ft. independently.) Eating Eating FIM Score 7. Complete [place] (Cuts meat, opens containers, regular diet.) Dressing-Upper body Patient retrieves clothing No items: Patient applies/removes UE No: n/a prosthesis or orthosis: Upper Body Dressing FIM Score 4. Minimal Assistance (Patient = 75% or more. Needs touching.) Dressing-lower body Patient retrieves clothing No items: Patient applies/removes LE No: n/a prosthesis or orthosis: Lower Body Dressing FIM Score 2. Maximal Assistance (Patient = 25% or more) - Labs CBC & Chem 7: 03/06/19 08:33 03/06/19 08:33 Labs: Laboratory Results - last 72 hr 03/04/19 03/04/19 03/05/19 17:28 22:09 00:03 WBC RBC Hgb Hct MCV MCH MCHC RDW Plt Count Sodium Potassium Chloride Carbon Dioxide Anion Gap BUN Creatinine Estimated GFR BUN/Creatinine Ratio Glucose POC Glucose 259 H 64 L 59 L Calcium 03/05/19 03/05/19 03/05/19 00:29 07:04 12:00 WBC RBC Hgb Hct MCV MCH MCHC RDW Plt Count Sodium Potassium Chloride Carbon Dioxide Anion Gap BUN Creatinine Estimated GFR BUN/Creatinine Ratio Glucose POC Glucose 191 H 80 158 H Calcium 03/05/19 03/05/19 03/06/19 16:44 23:01 00:01 WBC RBC Hgb Hct MCV MCH MCHC RDW Plt Count Sodium Potassium Chloride Carbon Dioxide Anion Gap BUN Creatinine Estimated GFR BUN/Creatinine Ratio Glucose POC Glucose 182 H 43 L 99 Calcium 03/06/19 03/06/19 03/06/19 03:06 08:08 08:33 WBC 5.7 RBC 3.28 L Hgb 8.1 L Hct 25.9 L MCV 79 MCH 25 L MCHC 31 RDW 22.9 H Plt Count 421 Sodium Potassium Chloride Carbon Dioxide Anion Gap BUN Creatinine Estimated GFR BUN/Creatinine Ratio Glucose POC Glucose 106 H 120 H Calcium 03/06/19 03/06/19 03/06/19 08:33 11:38 16:11 WBC RBC Hgb Hct MCV MCH MCHC RDW Plt Count Sodium 134 L Potassium 5.0 Chloride 93.6 L Carbon Dioxide 26 Anion Gap 19 BUN 18 H Creatinine 3.4 H Estimated GFR 16 BUN/Creatinine Ratio 5 Glucose 122 H POC Glucose 257 H 283 H Calcium 8.9 03/06/19 03/07/19 03/07/19 21:45 07:25 11:52 WBC RBC Hgb Hct MCV MCH MCHC RDW Plt Count Sodium Potassium Chloride Carbon Dioxide Anion Gap BUN Creatinine Estimated GFR BUN/Creatinine Ratio Glucose POC Glucose 186 H 85 354 H Calcium 03/07/19 13:05 WBC RBC Hgb Hct MCV MCH MCHC RDW Plt Count Sodium Potassium Chloride Carbon Dioxide Anion Gap BUN Creatinine Estimated GFR BUN/Creatinine Ratio Glucose POC Glucose 479 H Calcium Assessment and Plan R BKA: Will likely be a K1 ambulator, K2 not likely in reach at this point. After speaking with daughter, patient will most likely remain K1. Monitor wound. On isolation for MRSA in Blood with 4 weeks vancomycin during dialysis (03/19/2019 per ID notes). Continue to work on transfers and mobility. Monitor for phantom sensation/pain. Discussed prosthesis. Last blood culture was negative and patient remains on antibiotics with no excessive drainage from the wound. GILBERTO: Cont CPAP HTN: Monitor BP and adjust meds for normotension DM: Carb controlled diet. Monitor glucose. SSI. Insulin adjusted by IM Decreased memory: BRAND MGR to treat Hypothyroidism: Continue medication Z73.6 ADL dysfunction: OT will work on improving ability to perform ADLs (including assistive devices) to increase independence and decrease caregiver burden and improve functional transfers and mobility training. R26.2 Difficulty walking: PT will work on gait training and proper use of assistive devices and advance as appropriate to use of stairs and outside ambulation on uneven surfaces. R26.81 Unsteadiness on feet: PT will work on improving static and dynamic sitting and standing balance as well as proper use of assistive devices to decrease risk of falls. R26.89 Abnormality of gait: PT will work to improve safety and efficiency of gait through neuromotor training and gait training along with instruction on proper use of assistive devices. M62.81 Muscle weakness: PT & OT will work on strengthening exercises to improve functional strength including mixture of closed and open kinetic chain exercises. R53.81 Debility: PT & OT will work on improving overall functional status to improve participation with ADLs, mobility and social involvement. R53.83 Fatigue: PT & OT will work on improving endurance through aerobic exercises and therapeutic activity while monitoring patients tolerance for activity and vital signs as needed. Mood - Will continue to monitor for signs of interference with function. Seems ok now DVT ppx: heparin Pain: Continue physical modalities in therapy and pain medications as needed to achieve functional pain control. Sleep: Monitor and address as needed. Bowel: Monitor and address as needed. Appetite: Monitor and address as needed. Discharge planning: Pending therapy progress and care plan meeting. Will continue discussion with therapy team, SW, patient and family. Restrictions/ Precautions: Falls WB status: FWB Functional Hx: ADLs: Independent Cognition: Needed assistance Mobility: Cane and w/c for distance Barriers to Discharge: Decreased mobility and ability to perform self care, balance deficits, weakness, cognition Estimated Length of Stay: 14-18 days Discharge Destination: Home with family with supervision
[2019-03-07] MEDS ORDERED: DULCOLAX PR PRN (15:19)
[2019-03-07] MEDS ORDERED: DULCOLAX PR ONE (16:00)
[2019-03-07] MEDS ORDERED: NACL 0.9 (PRIMING MACHINE ONLY DIALYSIS) MC ONE (17:15)
[2019-03-07] MEDS: PROCRIT IV SCH (20:11)
[2019-03-07] MEDS: LYRICA PO SCH (22:07)
[2019-03-07] MEDS: ZETIA PO SCH (22:08)
[2019-03-07] MEDS: PRAVACHOL PO SCH (22:08)
[2019-03-07] MEDS: VANCOMYCIN 750 MG in NACL 0.9% 250ML 250 ML IV SCH (22:09)
[2019-03-08] MEDS: HEPARIN SUB-Q SCH ×3 (06:25→22:04)
[2019-03-08] MEDS: SYNTHROID PO SCH (06:25)
[2019-03-08 07:45] LABS: Hemoglobin 7.2 gm/dl (10.1-14.3); Mean Corpuscular HGB Conc 31 % (30-34); Mean Corpuscular Volume 78 fl (79-97); Platelet Count 283 K/mm3 (140-440); Red Blood Count 2.95 M/mm3 (3.65-5.03)
[2019-03-08 08:04] LABS: Calcium 8.8 mg/dL (8.4-10.2)
[2019-03-08] MEDS: NORVASC PO SCH (08:07)
[2019-03-08] MEDS: PHOSLO PO SCH ×3 (08:07→17:11)
[2019-03-08] MEDS: HumaLOG SUB-Q SCH ×7 (08:08→22:04)
[2019-03-08] MEDS: PROTONIX PO SCH (08:08)
[2019-03-08] MEDS: PLAVIX PO SCH (08:08)
[2019-03-08] MEDS: Renal Caps PO SCH (08:08)
[2019-03-08] MEDS: COLACE PO SCH ×2 (08:08→22:02)
[2019-03-08] MEDS: HALFPRIN EC PO SCH (08:08)
[2019-03-08 08:10] LABS: Red Cell Distribution Width 22.8 % (13.2-15.2)
--- NOTE | 2019-03-08 11:48 | Progress Note ---
Assessment and Plan 1. ESRD: Continue hemodialysis three times a week, TTS schedule. Volume overload: 2. FEN: Volume overload, UF with HD; 3-4 lts as tolerated. Hyperkalemia, Kayexalate. 3. Anemia: Decrease in H/H noted. Epogen with HD. Monitor H/H. 4. PAD: S/p R LE angioplasty and R BKA. 5. GILBERTO: CPAP. 6. DM type 2. 7. HTN: BP well controlled. In Acute rehab unit. Subjective Date of service: 03/09/19 Principal diagnosis: R BKA Interval history: Patient was seen and examined at the bedside. Feeling better today. Objective - Vital Signs Vital signs: Vital Signs - 12hr 03/08/19 03/08/19 03/08/19 00:31 00:32 05:42 Temperature 98.3 F 98.0 F Pulse Rate 73 72 76 Respiratory 18 18 Rate Blood Pressure 142/63 134/62 O2 Sat by Pulse 98 99 100 Oximetry 03/08/19 03/08/19 07:29 08:07 Temperature 98.0 F Pulse Rate 72 72 Respiratory 18 Rate Blood Pressure 139/57 139/57 O2 Sat by Pulse 95 Oximetry - General Appearance General appearance: well-developed, well-nourished, appears stated age, other (no distress) EENT: ATNC, hearing diminished Neck: supple Respiratory: Present: Clear to Ascultation Cardiology: regular, S1S2, no murmurs Gastrointestinal: normoactive bowel sounds, no tenderness, no distended Integumentary: no rash Neurologic: no asterixis, disoriented, other (diminished vision) Musculoskeletal: other (R BKA, L LE 1+ edema noted, L arm AVF) Psychiatric: cooperative - Lab 03/08/19 07:30 03/08/19 07:30 Most recent lab results Calcium 8.8 mg/dL (8.4-10.2) 03/08/19 07:30 Medications & Allergies - Medications Allergies/Adverse Reactions: Allergies Iodinated Contrast- Oral and IV Dye Allergy (Verified 11/25/18 15:48) Hives, Rash Penicillins Allergy (Verified 11/25/18 15:48) Hives Home Medications: Home Medications Medication Instructions Recorded Confirmed Last Taken Type B Complex 11/Folic/C/Biot/Zinc 1 each PO DAILY 0102/25/19 11/25/18 20:00 History [Dialyvite with Zinc Tablet] Lispro Insulin [HumaLOG] 7 unit SQ AC 11/25/18 02/25/19 Unknown History Pantoprazole Sodium 40 mg PO DAILY 11/25/18 02/25/19 11/26/18 05:00 History amLODIPine [Norvasc] 5 mg PO DAILY 11/25/18 02/25/19 11/28/18 History 2.5 Ranitidine HCl [Zantac] 300 mg PO BID 02/16/19 02/25/19 Unknown History Calcium Acetate 667 mg PO AC 02/18/19 02/25/19 Unknown History Levothyroxine 0.05 mg PO QDAY 02/18/19 02/25/19 Unknown History Lyrica 75 mg PO HS 02/18/19 02/25/19 Unknown History Pravastatin 40 mg PO HS 02/18/19 02/25/19 Unknown History Zetia 10 mg PO HS 02/18/19 02/25/19 Unknown History Aspirin EC 81 mg PO QDAY #30 tablet 02/25/19 02/25/19 Unknown Rx Clopidogrel [Plavix] 75 mg PO QDAY #30 tablet 02/25/19 02/25/19 Unknown Rx oxyCODONE /ACETAMINOPHEN [Percocet 1 tab PO Q6H PRN #14 tablet 02/25/19 02/25/19 Unknown Rx 5/325 mg] Active Medications: Generic Name Dose Route Start Last Admin Trade Name Freq PRN Reason Stop Dose Admin Albuterol 2.5 mg 02/25/19 18:39 03/07/19 07:24 Proventil IH 2.5 mg Q4HRT PRN Administration Shortness Of Breath Amlodipine Besylate 5 mg 02/26/19 08:00 03/08/19 08:07 Norvasc PO 5 mg QDAY JUAQUIN Administration Aspirin 81 mg 02/26/19 08:00 03/08/19 08:08 Halfprin Ec PO 81 mg QDAY JUAQUIN Administration Bisacodyl 10 mg 03/07/19 15:19 Dulcolax [place] QDAY PRN Constipation Calcium Acetate 667 mg 02/26/19 07:30 03/08/19 08:07 Phoslo PO 667 mg AC JUAQUIN Administration Clopidogrel Bisulfate 75 mg 02/26/19 08:00 03/08/19 08:08 Plavix PO 75 mg QDAY COUNTS INCLUDE 234 BEDS AT THE [facility] Administration Dextrose 50 ml 03/03/19 16:04 03/05/19 00:00 D50w (25gm) Syringe IV 50 ml PRN PRN Administration Hypoglycemia Diphenhydramine HCl 25 mg 02/25/19 18:39 03/06/19 06:24 Benadryl PO 25 mg Q6H PRN Administration Itching Docusate Sodium 100 mg 03/06/19 23:00 03/08/19 08:08 Colace PO Not Given BID JUAQUIN Ezetimibe 10 mg 02/25/19 22:00 03/07/19 22:08 Zetia PO 10 mg HS COUNTS INCLUDE 234 BEDS AT THE [facility] Administration Epoetin [place] 10,000 unit 02/26/19 13:00 03/07/19 20:11 Procrit IV 10,000 unit ANNI JUAQUIN Administration Heparin Sodium (Porcine) 5,000 unit 02/25/19 22:00 03/08/19 06:25 Heparin SUB-Q 5,000 unit Q8HR JUAQUIN Administration Sodium Chloride 100 mls @ 999 mls/hr 02/26/19 12:30 Nacl 0.9% IV ANNI PRN Hypotension Vancomycin HCl 750 mg/ Sodium 265 mls @ 166.667 mls/hr 03/05/19 18:00 03/07/19 22:09 Chloride IV 03/19/19 19:36 166.667 mls/hr TuThSa@1800 JUAQUIN Administration Insulin Human Lispro 0 unit 03/03/19 16:30 03/08/19 08:08 Humalog SUB-Q Not Given [facility] Protocol Insulin Human Lispro 2 unit 03/07/19 16:30 03/08/19 08:08 Humalog SUB-Q Not Given AC COUNTS INCLUDE 234 BEDS AT [facility] Levothyroxine Sodium 50 mcg 02/26/19 06:00 03/08/19 06:25 Synthroid PO 50 mcg DAILY@0600 COUNTS INCLUDE 234 BEDS AT THE [facility] Administration Multivit/Ca Carb/B Cmplx/FA/Prenat 1 cap 02/27/19 08:00 03/08/19 08:08 Renal Caps PO 1 cap QDAY JUAQUIN Administration Ondansetron HCl 4 mg 03/06/19 02:49 Zofran IV Q8H PRN Nausea And Vomiting Oxycodone/Acetaminophen 1 tab 02/25/19 18:39 03/06/19 01:10 Percocet 5/325 PO 1 tab Q6H PRN Administration Pain, Moderate (4-6) Pantoprazole Sodium 40 mg 03/07/19 08:00 03/08/19 08:08 Protonix PO 40 mg QDAY JUAQUIN Administration Polyethylene Glycol 17 gm 03/06/19 22:22 Miralax 3350 PO QDAY PRN Constipation Pravastatin Sodium 40 mg 02/25/19 21:00 03/07/19 22:08 Pravachol PO 40 mg QHS JUAQUIN Administration Pregabalin 75 mg 02/25/19 22:00 03/07/19 22:07 Lyrica PO 75 mg HS JUAQUIN Administration Simethicone 80 mg 02/28/19 10:11 02/28/19 11:25 Mylicon PO 80 mg Q6H PRN Administration Gas pain Sodium Polystyrene Sulfonate 15 gm 02/25/19 18:39 Kionex PO Q6HR PRN Hyperkalemia
[2019-03-08] MEDS ORDERED: KIONEX PO ONE (13:00)
--- NOTE | 2019-03-08 16:31 | Progress Note ---
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 Hospitalist consulted and following for uncontrolled DM. training generalist hypoglycemia, suspect Somogyi effect: discontinue long acting insulin and cover with SSI for now. DM Type 2 with hyperglycemia, a1c 6.8: continue SSI monitor SOB with perihilar edema on 03/05/19 CXR: treated with HD and repeat CXR, shows improvement GILBERTO ON CPAP: Stable GERD: Famotidine ESRD: HD tts, Nephrology following Right foot gangrene with severe PVD s/p BKA: Continue rehab, PT, OT HTN, controlled: low salt diet and treat with antihypertensives HX OF CVA: continue plavix, continue statin, ZETIA Hyperlipidemia: statin Hypothyrodisim: CONTINUE SYNTHROID Anemia: Monitor, on epogen DVT/GI prophylaxis Blood glucose is very labile because patient has Brittle Diabetes Mellitus. Long acting insulin cause land economist hypoglycemia; nonetheless, her blood sugars are very high during mealtime, so I will add fast acting insulin with meals and increase SSI to high dose protocol. Will continue to monitor==> which worked History Interval history: Patient was seen and examined. Follow-up on current diagnosis of DM/hyperglycemia. BG still dropping in land economist. Patient denies any chest pain, nausea/vomiting or severe headaches. Imaging, nursing note, chart, labs and old chart reviewed. Discussed with patient. Hospitalist Physical - Physical exam Narrative exam: Gen: WDWN, NAD, Awake, Alert, Orientated HEENT: NCAT, EOMI, PERRL, OP Clear Neck: supple, no adenopathy, no thyromegaly, no JVD CVS/Heart: RRR, normal S1S2, pulses present bilaterally Chest/Lungs: CTA B, Symmetrical chest expansion, good air entry bilaterally GI/Abdomen: soft, NTND, good bowel sounds, no guarding or rebound /Bladder: no suprapubic tenderness, no CVA or paraspinal tenderness Extermity/Skin: no c/c/e, no obvious rash MSK: FROM x 3, with right leg BKA and mike still in place, wound looks ok Neuro: CN 2-12 grossly intact, no new focal deficits Psych: calm - Constitutional Vitals: Temp Pulse Resp BP Pulse Ox 98.2 F 75 18 133/66 97 03/08/19 12:08 03/08/19 12:10 03/08/19 12:08 03/08/19 12:08 03/08/19 12:10 General appearance: Present: no acute distress, well-nourished Results - Labs CBC & Chem 7: 03/08/19 07:30 03/08/19 07:30 Labs: Laboratory Last Values WBC 5.0 K/mm3 (4.5-11.0) 03/08/19 07:30 RBC 2.95 M/mm3 (3.65-5.03) L 03/08/19 07:30 Hgb 7.2 gm/dl (10.1-14.3) L 03/08/19 07:30 Hct 23.0 % (30.3-42.9) L 03/08/19 07:30 MCV 78 fl (79-97) L 03/08/19 07:30 MCH 24 pg (28-32) L 03/08/19 07:30 MCHC 31 % (30-34) 03/08/19 07:30 RDW 22.8 % (13.2-15.2) H 03/08/19 07:30 Plt Count 283 K/mm3 (140-440) 03/08/19 07:30 Lymph % (Auto) Study Manager 02/26/19 11:01 [place] % (Auto) Study Manager 02/26/19 11:01 Eos % (Auto) Study Manager 02/26/19 11:01 Baso % (Auto) Study Manager 02/26/19 11:01 Lymph # Study Manager 02/26/19 11:01 [place] # Study Manager 02/26/19 11:01 Eos # Study Manager 02/26/19 11:01 Baso # Study Manager 02/26/19 11:01 Add Manual Diff Complete 02/26/19 11:01 Total Counted 100 02/26/19 11:01 Seg Neutrophils % Study Manager 02/26/19 11:01 Seg Neuts % (Manual) 86.0 % (40.0-70.0) H 02/26/19 11:01 0 % 02/26/19 11:01 4.0 % (13.4-35.0) L 02/26/19 11:01 Reactive Lymphs % (Man) 0 % 02/26/19 11:01 9.0 % (0.0-7.3) H 02/26/19 11:01 1.0 % (0.0-4.3) 02/26/19 11:01 0 % (0.0-1.8) 02/26/19 11:01 0 % 02/26/19 11:01 0 % 02/26/19 11:01 0 % 02/26/19 11:01 0 % 02/26/19 11:01 Nucleated RBC % Not Reportable 02/26/19 11:01 Seg Neutrophils # Study Manager 02/26/19 11:01 Seg Neutrophils # Man 6.4 K/mm3 (1.8-7.7) 02/26/19 11:01 Band Neutrophils # 0.0 K/mm3 02/26/19 11:01 0.3 K/mm3 (1.2-5.4) L 02/26/19 11:01 Abs React Lymphs (Man) 0.0 K/mm3 02/26/19 11:01 0.7 K/mm3 (0.0-0.8) 02/26/19 11:01 0.1 K/mm3 (0.0-0.4) 02/26/19 11:01 0.0 K/mm3 (0.0-0.1) 02/26/19 11:01 0.0 K/mm3 02/26/19 11:01 0.0 K/mm3 02/26/19 11:01 0.0 K/mm3 02/26/19 11:01 Blast Cells # 0.0 K/mm3 02/26/19 11:01 WBC Morphology Not Reportable 02/26/19 11:01 Hypersegmented Neuts Not Reportable 02/26/19 11:01 Hyposegmented Neuts Not Reportable 02/26/19 11:01 Hypogranular Neuts Not Reportable 02/26/19 11:01 Not Reportable 02/26/19 11:01 Not Reportable 02/26/19 11:01 Not Reportable 02/26/19 11:01 Not Reportable 02/26/19 11:01 Not Reportable 02/26/19 11:01 Not Reportable 02/26/19 11:01 Consistent w auto 02/26/19 11:01 Not Reportable 02/26/19 11:01 Plt Clumps, EDTA Not Reportable 02/26/19 11:01 Not Reportable 02/26/19 11:01 Not Reportable 02/26/19 11:01 Not Reportable 02/26/19 11:01 Plt Morphology Comment Not Reportable 02/26/19 11:01 RBC Morphology Not Reportable 02/26/19 11:01 Dimorphic RBCs Not Reportable 02/26/19 11:01 Few 02/26/19 11:01 1+ 02/26/19 11:01 Not Reportable 02/26/19 11:01 1+ 02/26/19 11:01 Not Reportable 02/26/19 11:01 Not Reportable 02/26/19 11:01 Not Reportable 02/26/19 11:01 Not Reportable 02/26/19 11:01 Not Reportable 02/26/19 11:01 Few 02/26/19 11:01 Not Reportable 02/26/19 11:01 Few 02/26/19 11:01 Not Reportable 02/26/19 11:01 Not Reportable 02/26/19 11:01 Not Reportable 02/26/19 11:01 Not Reportable 02/26/19 11:01 Not Reportable 02/26/19 11:01 Not Reportable 02/26/19 11:01 Not Reportable 02/26/19 11:01 Acanthocytes (Spur) Not Reportable 02/26/19 11:01 Rouleaux Not Reportable 02/26/19 11:01 Not Reportable 02/26/19 11:01 Not Reportable 02/26/19 11:01 Not Reportable 02/26/19 11:01 Not Reportable 02/26/19 11:01 Hem Pathologist Commnt No 02/26/19 11:01 Sodium 133 mmol/L (137-145) L 03/08/19 07:30 Potassium 5.5 mmol/L (3.6-5.0) H 03/08/19 07:30 Chloride 93.9 mmol/L (98-107) L 03/08/19 07:30 Carbon Dioxide 25 mmol/L (22-30) 03/08/19 07:30 20 mmol/L 03/08/19 07:30 BUN 15 mg/dL (7-17) 03/08/19 07:30 3.3 mg/dL (0.7-1.2) H 03/08/19 07:30 Estimated GFR 16 ml/min 03/08/19 07:30 5 % 03/08/19 07:30 Glucose 108 mg/dL (65-100) H 03/08/19 07:30 POC Glucose 247 (70-105) H 03/08/19 11:49 6.8 % (4-6) H 03/08/19 05:03 Calcium 8.8 mg/dL (8.4-10.2) 03/08/19 07:30 0.40 mg/dL (0.1-1.2) 02/26/19 11:01 AST 32 units/L (5-40) 02/26/19 11:01 ALT 17 units/L (7-56) 02/26/19 11:01 382 units/L (35-129) H 02/26/19 11:01 5.7 g/dL (6.3-8.2) L 02/26/19 11:01 2.6 g/dL (3.9-5) L 02/26/19 11:01 0.8 % 02/26/19 11:01 Random Vancomycin 27.9 ug/mL (0-40.0) 03/03/19 06:35 Hepatitis A IgM Ab Non-reactive (NonReactive) 02/28/19 10:48 Hep Bs Antigen Non-reactive (Negative) 02/28/19 10:48 Hep B Core IgM Ab Non-reactive (NonReactive) 02/28/19 10:48 Non-reactive (NonReactive) 02/28/19 10:48 Active Medications - Current Medications Current Medications: Generic Name Dose Route Start Last Admin Trade Name Freq PRN Reason Stop Dose Admin Albuterol 2.5 mg 02/25/19 18:39 03/07/19 07:24 Proventil IH 2.5 mg Q4HRT PRN Administration Shortness Of Breath Amlodipine Besylate 5 mg 02/26/19 08:00 03/08/19 08:07 Norvasc PO 5 mg QDAY JUAQUIN Administration Aspirin 81 mg 02/26/19 08:00 03/08/19 08:08 Halfprin Ec PO 81 mg QDAY JUAQUIN Administration Bisacodyl 10 mg 03/07/19 15:19 Dulcolax [place] QDAY PRN Constipation Calcium Acetate 667 mg 02/26/19 07:30 03/08/19 12:23 Phoslo PO 667 mg AC JUAQUIN Administration Clopidogrel Bisulfate 75 mg 02/26/19 08:00 03/08/19 08:08 Plavix PO 75 mg QDAY JUAQUIN Administration Dextrose 50 ml 03/03/19 16:04 03/05/19 00:00 D50w (25gm) Syringe IV 50 ml PRN PRN Administration Hypoglycemia Diphenhydramine HCl 25 mg 02/25/19 18:39 03/06/19 06:24 Benadryl PO 25 mg Q6H PRN Administration Itching Docusate Sodium 100 mg 03/06/19 23:00 03/08/19 08:08 Colace PO Not Given BID JUAQUIN Ezetimibe 10 mg 02/25/19 22:00 03/07/19 22:08 Zetia PO 10 mg HS JUAQUIN Administration Epoetin [place] 10,000 unit 02/26/19 13:00 03/07/19 20:11 Procrit IV 10,000 unit ANNI [facility] Administration Heparin Sodium (Porcine) 5,000 unit 02/25/19 22:00 03/08/19 14:01 Heparin SUB-Q 5,000 unit Q8HR JUAQUIN Administration Sodium Chloride 100 mls @ 999 mls/hr 02/26/19 12:30 Nacl 0.9% IV ANNI PRN Hypotension Vancomycin HCl 750 mg/ Sodium 265 mls @ 166.667 mls/hr 03/05/19 18:00 03/07/19 22:09 Chloride IV 03/19/19 19:36 166.667 mls/hr TuThSa@1800 JUAQUIN Administration Insulin Human Lispro 0 unit 03/03/19 16:30 03/08/19 12:23 Humalog SUB-Q 4 unit ACHS [facility] Administration Protocol Insulin Human Lispro 2 unit 03/07/19 16:30 03/08/19 12:23 Humalog SUB-Q 2 unit AC JUAQUIN Administration Levothyroxine Sodium 50 mcg 02/26/19 06:00 03/08/19 06:25 Synthroid PO 50 mcg DAILY@0600 [facility] Administration Multivit/Ca Carb/B Cmplx/FA/Prenat 1 cap 02/27/19 08:00 03/08/19 08:08 Renal Caps PO 1 cap QDAY JUAQUIN Administration Ondansetron HCl 4 mg 03/06/19 02:49 Zofran IV Q8H PRN Nausea And Vomiting Oxycodone/Acetaminophen 1 tab 02/25/19 18:39 03/06/19 01:10 Percocet 5/325 PO 1 tab Q6H PRN Administration Pain, Moderate (4-6) Pantoprazole Sodium 40 mg 03/07/19 08:00 03/08/19 08:08 Protonix PO 40 mg QDAY JUAQUIN Administration Polyethylene Glycol 17 gm 03/06/19 22:22 Miralax 3350 PO QDAY PRN Constipation Pravastatin Sodium 40 mg 02/25/19 21:00 03/07/19 22:08 Pravachol PO 40 mg QHS JUAQUIN Administration Pregabalin 75 mg 02/25/19 22:00 03/07/19 22:07 Lyrica PO 75 mg HS JUAQUIN Administration Simethicone 80 mg 02/28/19 10:11 02/28/19 11:25 Mylicon PO 80 mg Q6H PRN Administration Gas pain Nutrition/Malnutrition Assess - Dietary Evaluation Nutrition/Malnutrition Findings: Nutrition Notes Start: 03/04/19 17:30 Freq: Status: Active Protocol: Document 03/04/19 17:30 RM (Rec: 03/04/19 17:31 RM [id number]) Nutrition Notes Need for Assessment generated from: LOS Initial or Follow up Brief Note Height 4 ft 11 in Weight 67.8 kg [place] Body Weight (kg) 43.18 BMI 30.2 Subjective/Other Information Screened for LOS. Recorded PO intake 81% X 4 meals. Nutrition Intervention Revisit per MD consult or patient Sign Off request:
[2019-03-08] MEDS: PERCOCET 5/325 PO PRN (18:23)
[2019-03-08] MEDS: BENADRYL PO PRN (18:23)
[2019-03-08] MEDS: LYRICA PO SCH (22:02)
[2019-03-08] MEDS: PRAVACHOL PO SCH (22:03)
[2019-03-08] MEDS: ZETIA PO SCH (22:03)
[2019-03-09] MEDS: SYNTHROID PO SCH (05:32)
[2019-03-09] MEDS: HEPARIN SUB-Q SCH ×3 (05:32→22:38)
[2019-03-09] MEDS ORDERED: GLUCAGEN IM STA (07:32)
[2019-03-09] MEDS: D50W (25GM) Syringe IV PRN (07:48)
[2019-03-09] MEDS: HumaLOG SUB-Q SCH ×5 (07:49→22:37)
[2019-03-09] MEDS: COLACE PO SCH ×2 (10:08→22:41)
[2019-03-09] MEDS: Renal Caps PO SCH (10:08)
[2019-03-09] MEDS: HALFPRIN EC PO SCH (10:08)
[2019-03-09] MEDS: PROTONIX PO SCH (10:08)
[2019-03-09] MEDS: PLAVIX PO SCH (10:09)
[2019-03-09] MEDS: PHOSLO PO SCH ×3 (10:09→17:05)
[2019-03-09] MEDS: NORVASC PO SCH (10:09)
--- NOTE | 2019-03-09 14:02 | Progress Note ---
Assessment and Plan 1. ESRD: Continue hemodialysis three times a week, TTS schedule. 2. FEN: Volume overload, additional session of Isolated UF today to remove 2-3 Lts as tolerated. Hyperkalemia, improved. 3. Anemia: Epogen with HD. Monitor H/H. 4. PAD: S/p R LE angioplasty and R BKA. 5. GILBERTO: CPAP. 6. DM type 2. 7. HTN: BP well controlled. In Acute rehab unit. D/w her daughter over the phone. Subjective Date of service: 03/09/19 Principal diagnosis: R BKA Interval history: Patient was seen and examined at the bedside. Doing ok. Objective - Vital Signs Vital signs: Vital Signs - 12hr 03/09/19 03/09/19 03/09/19 04:24 07:15 09:00 Temperature 97.8 F 97.6 F Pulse Rate 63 56 L Respiratory 19 18 16 Rate Blood Pressure 144/61 Blood Pressure 129/51 [Right] O2 Sat by Pulse 100 100 Oximetry 03/09/19 11:32 Temperature 97.6 F Pulse Rate 66 Respiratory 18 Rate Blood Pressure 138/59 Blood Pressure [Right] O2 Sat by Pulse 99 Oximetry - General Appearance General appearance: well-developed, well-nourished, appears stated age, other (no distress) EENT: ATNC Neck: supple Respiratory: Present: Clear to Ascultation Cardiology: regular, S1S2, no murmurs Gastrointestinal: normoactive bowel sounds, no tenderness, no distended Integumentary: no rash, warm and dry Neurologic: no asterixis, disoriented, other (decreased eye sight) Musculoskeletal: other (L arm AVF, no edema) - Lab 03/09/19 16:21 03/09/19 16:21 Most recent lab results Calcium 8.8 mg/dL (8.4-10.2) 03/08/19 07:30 Medications & Allergies - Medications Allergies/Adverse Reactions: Allergies Iodinated Contrast- Oral and IV Dye Allergy (Verified 11/25/18 15:48) Hives, Rash Penicillins Allergy (Verified 11/25/18 15:48) Hives Home Medications: Home Medications Medication Instructions Recorded Confirmed Last Taken Type B Complex 11/Folic/C/Biot/Zinc 1 each PO DAILY 09/06/15 02/25/19 11/25/18 20:00 History [Dialyvite with Zinc Tablet] Lispro Insulin [HumaLOG] 7 unit SQ AC 11/25/18 02/25/19 Unknown History Pantoprazole Sodium 40 mg PO DAILY 11/25/18 02/25/19 11/26/18 05:00 History amLODIPine [Norvasc] 5 mg PO DAILY 11/25/18 02/25/19 11/28/18 History 2.5 Ranitidine HCl [Zantac] 300 mg PO BID 02/16/19 02/25/19 Unknown History Calcium Acetate 667 mg PO AC 02/18/19 02/25/19 Unknown History Levothyroxine 0.05 mg PO QDAY 02/18/19 02/25/19 Unknown History Lyrica 75 mg PO HS 02/18/19 02/25/19 Unknown History Pravastatin 40 mg PO HS 02/18/19 02/25/19 Unknown History Zetia 10 mg PO HS 02/18/19 02/25/19 Unknown History Aspirin EC 81 mg PO QDAY #30 tablet 02/25/19 02/25/19 Unknown Rx Clopidogrel [Plavix] 75 mg PO QDAY #30 tablet 02/25/19 02/25/19 Unknown Rx oxyCODONE /ACETAMINOPHEN [Percocet 1 tab PO Q6H PRN #14 tablet 02/25/19 02/25/19 Unknown Rx 5/325 mg] Active Medications: Generic Name Dose Route Start Last Admin Trade Name Freq PRN Reason Stop Dose Admin Albuterol 2.5 mg 02/25/19 18:39 03/07/19 07:24 Proventil IH 2.5 mg Q4HRT PRN Administration Shortness Of Breath Amlodipine Besylate 5 mg 02/26/19 08:00 03/09/19 10:09 Norvasc PO 5 mg QDAY JUAQUIN Administration Aspirin 81 mg 02/26/19 08:00 03/09/19 10:08 Halfprin Ec PO 81 mg QDAY JUAQUIN Administration Bisacodyl 10 mg 03/07/19 15:19 Dulcolax [place] QDAY PRN Constipation Calcium Acetate 667 mg 02/26/19 07:30 03/09/19 10:09 Phoslo PO 667 mg AC JUAQUIN Administration Clopidogrel Bisulfate 75 mg 02/26/19 08:00 03/09/19 10:09 Plavix PO 75 mg QDAY JUAQUIN Administration Dextrose 50 ml 03/03/19 16:04 03/09/19 07:48 D50w (25gm) Syringe IV 50 ml PRN PRN Administration Hypoglycemia Diphenhydramine HCl 25 mg 02/25/19 18:39 03/08/19 18:23 Benadryl PO 25 mg Q6H PRN Administration Itching Docusate Sodium 100 mg 03/06/19 23:00 03/09/19 10:08 Colace PO 100 mg BID JUAQUIN Administration Ezetimibe 10 mg 02/25/19 22:00 03/08/19 22:03 Zetia PO 10 mg HS [facility] Administration Epoetin [place] 10,000 unit 02/26/19 13:00 03/07/19 20:11 Procrit IV 10,000 unit ANNI [facility] Administration Heparin Sodium (Porcine) 5,000 unit 02/25/19 22:00 03/09/19 05:32 Heparin SUB-Q 5,000 unit Q8HR [facility] Administration Sodium Chloride 100 mls @ 999 mls/hr 02/26/19 12:30 Nacl 0.9% IV ANNI PRN Hypotension Vancomycin HCl 750 mg/ Sodium 265 mls @ 166.667 mls/hr 03/05/19 18:00 03/07/19 22:09 Chloride IV 03/19/19 19:36 166.667 mls/hr TuThSa@1800 [facility] Administration Insulin Human Lispro 0 unit 03/03/19 16:30 03/09/19 07:49 Humalog SUB-Q Not Given [facility] Protocol Insulin Human Lispro 2 unit 03/07/19 16:30 03/09/19 07:49 Humalog SUB-Q Not Given [facility] Levothyroxine Sodium 50 mcg 02/26/19 06:00 03/09/19 05:32 Synthroid PO 50 mcg DAILY@0600 [facility] Administration Multivit/Ca Carb/B Cmplx/FA/Prenat 1 cap 02/27/19 08:00 03/09/19 10:08 Renal Caps PO 1 cap QDAY [facility] Administration Ondansetron HCl 4 mg 03/06/19 02:49 Zofran IV Q8H PRN Nausea And Vomiting Oxycodone/Acetaminophen 1 tab 02/25/19 18:39 03/08/19 18:23 Percocet 5/325 PO 1 tab Q6H PRN Administration Pain, Moderate (4-6) Pantoprazole Sodium 40 mg 03/07/19 08:00 03/09/19 10:08 Protonix PO 40 mg QDAY JUAQUIN Administration Polyethylene Glycol 17 gm 03/06/19 22:22 Miralax 3350 PO QDAY PRN Constipation Pravastatin Sodium 40 mg 02/25/19 21:00 03/08/19 22:03 Pravachol PO 40 mg QHS JUAQUIN Administration Pregabalin 75 mg 02/25/19 22:00 03/08/19 22:02 Lyrica PO 75 mg HS JUAQUIN Administration Simethicone 80 mg 02/28/19 10:11 02/28/19 11:25 Mylicon PO 80 mg Q6H PRN Administration Gas pain
--- NOTE | 2019-03-09 14:26 | Progress Note ---
Subjective Date of service: 03/09/19 Principal diagnosis: R BKA Interval history: 78-year-old female with right foot pain presented to ER and found to have sepsis. Amputation was previously discussed for the right lower extremity gangrene however family refused. Patient had been undergoing treatment HBOT without resolution. ID was consulted and started antibiotics. Vascular surgery performed angiography. Afterwards she was scheduled for a right BKA which proceeded without incident. After the patient was medically stabilized they were transferred for further rehabilitation. All available medical records have been reviewed. Plan of care was discussed with patient and family. Patient is participating in therapy and making reasonable progress. Taking rest breaks as needed. +BM. GLU is variable, code Met called this AM due to hypoglycemia. Appreciate hospitalist assistance. Monitor. Breathing improved. Patient states HD is removing more fluid. Awaiting ID input on removal from isolation. Some phantom sensation but no overt phantom pain. Standing with therapy and assistance for short period, SBT. Continue therapy as planned. No signs of infection (residual limb not visualized today), continues vanc on dialysis days. Will need to see surgeon on 03/10/2019 for follow up - consulted them to inform that she is on the rehab unit. All records, vitals, labs and medications were reviewed. No other issues per patient, nursing or therapy. Objective - Exam Narrative Exam: MUSCULOSKELETAL SPECIALTY EXAM CONSTITUTIONAL: Well developed, well nourished, appropriately groomed EENT: Legally blind. Oropharynx clear. RESPIRATORY: Clear to auscultation bilaterally, no increased work of breathing, no crackles. Supplemental O2 CARDIOVASCULAR: Regular Rate/ Rhythm, no swelling, edema or tenderness in BUE or BLE. Pulses palpable in all extremities. All extremities warm. Thrill in LUE GI: + bowel sounds, soft, nondistended. INTEGUMENTARY: LLE with decrease in edema. Otherwise, normal, no lesion, rash, masses or bruising noted in extremities. Surgical wound on right lower extremity is healing well (not visualized today) MUSCULOSKELETAL: Right BKA, otherwise BUE and BLE normal without defect, crepitus, subluxation, effusion, arthritic changes or TTP. BUE 4/5, good ROM, with normal tone. LLE 4-/5 good ROM, with normal tone, RLE decreased ROM secondary to pain NEURO: CN 2-12 grossly intact. Sensation intact in all extremities. No tremor noted in 4 extremities. POSTURE and GAIT: Sitting posture good. Balance appears reasonable. Gait deferred, based on standing performance she may not be able to ambulate with just a walker without prosthesis. PSYCH: Alert, orientated x2, slightly confused at times and decreased memory, affect appears normal. - Constitutional Vitals: Vital Signs - 12hr 03/09/19 03/09/19 03/09/19 04:24 07:15 09:00 Temperature 36.6 C 36.4 C Pulse Rate 63 56 L Respiratory 19 18 16 Rate Blood Pressure 144/61 Blood Pressure 129/51 [Right] O2 Sat by Pulse 100 100 Oximetry 03/09/19 11:32 Temperature 36.4 C Pulse Rate 66 Respiratory 18 Rate Blood Pressure 138/59 Blood Pressure [Right] O2 Sat by Pulse 99 Oximetry - Allied health notes Allied health notes reviewed: nursing, PT, ST, OT FIMS assessment as documented by PT/OT/ST: Grooming Patient cleans teeth/dentures: Yes Patient holguin/brushes hair: Yes Patient washes, rinses and Yes dries face: Patient washes, rinses and Yes dries hands: Patient shaves: No Patient applies make-up: No Patient performs (no make-up/ 4/4 (100%) shaving): Grooming FIM Score 4. Minimal Assistance (Patient = 75% or more. Needs touching.) Toileting Toileting Device Bedpan Toileting FIM Score 2. Maximal Assistance (Patient = 25% or more) Social interaction/Memory/Problem solving Social Interaction FIM Score 5. Supervision (Needs supv. <10%. Needs encouragement to participate.) Memory FIM Score 5. Supervision (Needs cueing <10%, stressful/ unfamiliar situations.) Problem Solving FIM Score 5. Supervision (Needs cueing <10% to solve routine problems.) Transfers Mode of Locomotion: Wheelchair Bed/Chair/Wheelchair Transfers 3. Moderate Assistance (Patient = 50% or more. FIM Score Some lifting.) Toilet Transfers FIM Score 1. Total Assistance (Patient less than 25%. 2 or more persons.) Patient transferred to: Shower Shower Transfers FIM Score 1. Total Assistance (Patient less than 25%. 2 or more persons.) Locomotion- Stairs Stairs FIM Score 0. Activity does not occur Locomotion- walk/wheelchair Most Frequent Mode of Wheelchair Locomotion: Ambulation Distance 0 Walking FIM Score 0. Activity does not occur Wheelchair Propulsion Distance 150 Wheelchair FIM Score 5. Supervision (Minimum 150 ft. supv./cues or 50 ft. independently.) Eating Eating FIM Score 7. Complete [place] (Cuts meat, opens containers, regular diet.) Dressing-Upper body Patient retrieves clothing No items: Patient applies/removes UE No: n/a prosthesis or orthosis: Upper Body Dressing FIM Score 4. Minimal Assistance (Patient = 75% or more. Needs touching.) Dressing-lower body Patient retrieves clothing No items: Patient applies/removes LE No: n/a prosthesis or orthosis: Lower Body Dressing FIM Score 2. Maximal Assistance (Patient = 25% or more) - Labs CBC & Chem 7: 03/10/19 07:48 03/10/19 07:48 Labs: Laboratory Results - last 72 hr 03/06/19 03/06/19 03/07/19 16:11 21:45 07:25 WBC RBC Hgb Hct MCV MCH MCHC RDW Plt Count Sodium Potassium Chloride Carbon Dioxide Anion Gap BUN Creatinine Estimated GFR BUN/Creatinine Ratio Glucose POC Glucose 283 H 186 H 85 Hemoglobin A1c Calcium 03/07/19 03/07/19 03/07/19 11:52 13:05 22:34 WBC RBC Hgb Hct MCV MCH MCHC RDW Plt Count Sodium Potassium Chloride Carbon Dioxide Anion Gap BUN Creatinine Estimated GFR BUN/Creatinine Ratio Glucose POC Glucose 354 H 479 H 108 H Hemoglobin A1c Calcium 03/08/19 03/08/19 03/08/19 05:03 05:34 07:30 WBC 5.0 RBC 2.95 L Hgb 7.2 L Hct 23.0 L MCV 78 L MCH 24 L MCHC 31 RDW 22.8 H Plt Count 283 Sodium Potassium Chloride Carbon Dioxide Anion Gap BUN Creatinine Estimated GFR BUN/Creatinine Ratio Glucose POC Glucose 126 H Hemoglobin A1c 6.8 H Calcium 03/08/19 03/08/19 03/08/19 07:30 07:32 11:49 WBC RBC Hgb Hct MCV MCH MCHC RDW Plt Count Sodium 133 L Potassium 5.5 H Chloride 93.9 L Carbon Dioxide 25 Anion Gap 20 BUN 15 Creatinine 3.3 H Estimated GFR 16 BUN/Creatinine Ratio 5 Glucose 108 H POC Glucose 102 247 H Hemoglobin A1c Calcium 8.8 03/08/19 03/08/19 03/09/19 16:34 21:07 07:23 WBC RBC Hgb Hct MCV MCH MCHC RDW Plt Count Sodium Potassium Chloride Carbon Dioxide Anion Gap BUN Creatinine Estimated GFR BUN/Creatinine Ratio Glucose POC Glucose 262 H 80 < 40 L Hemoglobin A1c Calcium 03/09/19 03/09/19 03/09/19 07:40 07:48 11:39 WBC RBC Hgb Hct MCV MCH MCHC RDW Plt Count Sodium Potassium Chloride Carbon Dioxide Anion Gap BUN Creatinine Estimated GFR BUN/Creatinine Ratio Glucose POC Glucose < 40 L 218 H 277 H Hemoglobin A1c Calcium Assessment and Plan R BKA: Will likely be a K1 ambulator, K2 not likely in reach at this point. After speaking with daughter, patient will most likely remain K1. Monitor wound. On isolation for MRSA in Blood with 4 weeks vancomycin during dialysis (03/19/2019 per ID notes). Continue to work on transfers and mobility. Monitor for phantom sensation/pain. Discussed prosthesis. Last blood culture was negative and patient remains on antibiotics with no excessive drainage from the wound. GILBERTO: Cont CPAP HTN: Monitor BP and adjust meds for normotension DM: Carb controlled diet. Monitor glucose. SSI. 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 R26.2 Difficulty walking: PT will work on gait training and proper use of assistive devices and advance as appropriate to use of stairs and outside ambulation on uneven surfaces. R26.81 Unsteadiness on feet: PT will work on improving static and dynamic sitting and standing balance as well as proper use of assistive devices to decrease risk of falls. R26.89 Abnormality of gait: PT will work to improve safety and efficiency of gait through neuromotor training and gait training along with instruction on proper use of assistive devices. M62.81 Muscle weakness: PT & OT will work on strengthening exercises to improve functional strength including mixture of closed and open kinetic chain exercises. R53.81 Debility: PT & OT will work on improving overall functional status to improve participation with ADLs, mobility and social involvement. R53.83 Fatigue: PT & OT will work on improving endurance through aerobic exercises and therapeutic activity while monitoring patients tolerance for activity and vital signs as needed. DVT ppx: heparin Pain: Continue physical modalities in therapy and pain medications as needed to achieve functional pain control. Sleep: Monitor and address as needed. Bowel: Monitor and address as needed. Appetite: Monitor and address as needed. Discharge planning: Pending therapy progress and care plan meeting. Will continue discussion with therapy team, SW, patient and family. Restrictions/ Precautions: Falls WB status: FWB Functional Hx: ADLs: Independent Cognition: Needed assistance Mobility: Cane and w/c for distance Barriers to Discharge: Decreased mobility and ability to perform self care, balance deficits, weakness, cognition Estimated Length of Stay: 14-18 days Discharge Destination: Home with family with supervision
--- NOTE | 2019-03-09 14:33 | Progress Note ---
Assessment and Plan Assessment and plan: Hospitalist publicity consultant for DM in the Inpatient Rehab unit of [facility] Patient is a 78-year-old woman with a history of PVD, DM type 2, ESRD on hemodialysis, GERD, CVA, heart failure, hypertension, hypothyroidism, legally blind and GILBERTO who presented to [facility] inpatient rehab unit following right leg BKA. Hospitalist consulted and following for uncontrolled DM. housekeeping assistant hypoglycemia, suspect Somogyi effect: discontinue long acting insulin and cover with SSI for now. DM Type 2 with hyperglycemia, a1c 6.8: continue SSI monitor SOB with perihilar edema on 03/05/19 CXR: treated with HD and repeat CXR, shows improvement GILBERTO ON CPAP: Stable GERD: Famotidine ESRD: HD tts, Nephrology following Right foot gangrene with severe PVD s/p BKA: Continue rehab, PT, OT HTN, controlled: low salt diet and treat with antihypertensives HX OF CVA: continue plavix, continue statin, ZETIA Hyperlipidemia: statin Hypothyrodisim: CONTINUE SYNTHROID Anemia: Monitor, on epogen DVT/GI prophylaxis Blood glucose is very labile because patient has Brittle Diabetes Mellitus. Long acting insulin cause gelatin powder mixer hypoglycemia; nonetheless, her blood sugars are very high during mealtime, so I will add fast acting insulin with meals and increase SSI to high dose protocol. Will continue to monitor CODE MET called, AMS/somnolent due to BG 27. Dextrose was to be given then she lost IV access, so I ordered Glucagon IM; however, she was waking up and drank OJ then IV re-established and she was given Dextrose IV and 1mg IM Glucagon. Her blood glucose feliz rocketed to 218 and she was A/o x 3. Will stop mealtime Novolog adjust SSI History Interval history: Patient was seen and examined. Follow-up on current diagnosis of DM/hyperglycemia. CODE MET called, AMS/somnolent due to BG 27. Hospitalist Physical - Physical exam Narrative exam: Gen: WDWN, NAD, Awake, Alert, Orientated HEENT: NCAT, EOMI, PERRL, OP Clear Neck: supple, no adenopathy, no thyromegaly, no JVD CVS/Heart: RRR, normal S1S2, pulses present bilaterally Chest/Lungs: CTA B, Symmetrical chest expansion, good air entry bilaterally GI/Abdomen: soft, NTND, good bowel sounds, no guarding or rebound /Bladder: no suprapubic tenderness, no CVA or paraspinal tenderness Extermity/Skin: no c/c/e, no obvious rash MSK: FROM x 3, with right leg BKA and mike still in place, wound looks ok Neuro: CN 2-12 grossly intact, no new focal deficits Psych: calm - Constitutional Vitals: Temp Pulse Resp BP Pulse Ox 97.6 F 66 18 138/59 99 03/09/19 11:32 03/09/19 11:32 03/09/19 11:32 03/09/19 11:32 03/09/19 11:32 General appearance: Present: no acute distress, well-nourished Results - Labs CBC & Chem 7: 03/08/19 07:30 03/08/19 07:30 Labs: Laboratory Last Values WBC 5.0 K/mm3 (4.5-11.0) 03/08/19 07:30 RBC 2.95 M/mm3 (3.65-5.03) L 03/08/19 07:30 Hgb 7.2 gm/dl (10.1-14.3) L 03/08/19 07:30 Hct 23.0 % (30.3-42.9) L 03/08/19 07:30 MCV 78 fl (79-97) L 03/08/19 07:30 MCH 24 pg (28-32) L 03/08/19 07:30 MCHC 31 % (30-34) 03/08/19 07:30 RDW 22.8 % (13.2-15.2) H 03/08/19 07:30 Plt Count 283 K/mm3 (140-440) 03/08/19 07:30 Lymph % (Auto) Mathematical Physicist 02/26/19 11:01 Benzie % (Auto) Mathematical Physicist 02/26/19 11:01 Eos % (Auto) Mathematical Physicist 02/26/19 11:01 Baso % (Auto) Mathematical Physicist 02/26/19 11:01 Lymph # Mathematical Physicist 02/26/19 11:01 Benzie # Mathematical Physicist 02/26/19 11:01 Eos # Mathematical Physicist 02/26/19 11:01 Baso # Mathematical Physicist 02/26/19 11:01 Add Manual Diff Complete 02/26/19 11:01 Total Counted 100 02/26/19 11:01 Seg Neutrophils % Mathematical Physicist 02/26/19 11:01 Seg Neuts % (Manual) 86.0 % (40.0-70.0) H 02/26/19 11:01 0 % 02/26/19 11:01 4.0 % (13.4-35.0) L 02/26/19 11:01 Reactive Lymphs % (Man) 0 % 02/26/19 11:01 9.0 % (0.0-7.3) H 02/26/19 11:01 1.0 % (0.0-4.3) 02/26/19 11:01 0 % (0.0-1.8) 02/26/19 11:01 0 % 02/26/19 11:01 0 % 02/26/19 11:01 0 % 02/26/19 11:01 0 % 02/26/19 11:01 Nucleated RBC % Not Reportable 02/26/19 11:01 Seg Neutrophils # Mathematical Physicist 02/26/19 11:01 Seg Neutrophils # Man 6.4 K/mm3 (1.8-7.7) 02/26/19 11:01 Band Neutrophils # 0.0 K/mm3 02/26/19 11:01 0.3 K/mm3 (1.2-5.4) L 02/26/19 11:01 Abs React Lymphs (Man) 0.0 K/mm3 02/26/19 11:01 0.7 K/mm3 (0.0-0.8) 02/26/19 11:01 0.1 K/mm3 (0.0-0.4) 02/26/19 11:01 0.0 K/mm3 (0.0-0.1) 02/26/19 11:01 0.0 K/mm3 02/26/19 11:01 0.0 K/mm3 02/26/19 11:01 0.0 K/mm3 02/26/19 11:01 Blast Cells # 0.0 K/mm3 02/26/19 11:01 WBC Morphology Not Reportable 02/26/19 11:01 Hypersegmented Neuts Not Reportable 02/26/19 11:01 Hyposegmented Neuts Not Reportable 02/26/19 11:01 Hypogranular Neuts Not Reportable 02/26/19 11:01 Not Reportable 02/26/19 11:01 Not Reportable 02/26/19 11:01 Not Reportable 02/26/19 11:01 Not Reportable 02/26/19 11:01 Not Reportable 02/26/19 11:01 Not Reportable 02/26/19 11:01 Consistent w auto 02/26/19 11:01 Not Reportable 02/26/19 11:01 Plt Clumps, EDTA Not Reportable 02/26/19 11:01 Not Reportable 02/26/19 11:01 Not Reportable 02/26/19 11:01 Not Reportable 02/26/19 11:01 Plt Morphology Comment Not Reportable 02/26/19 11:01 RBC Morphology Not Reportable 02/26/19 11:01 Dimorphic RBCs Not Reportable 02/26/19 11:01 Few 02/26/19 11:01 1+ 02/26/19 11:01 Not Reportable 02/26/19 11:01 1+ 02/26/19 11:01 Not Reportable 02/26/19 11:01 Not Reportable 02/26/19 11:01 Not Reportable 02/26/19 11:01 Not Reportable 02/26/19 11:01 Not Reportable 02/26/19 11:01 Few 02/26/19 11:01 Not Reportable 02/26/19 11:01 Few 02/26/19 11:01 Not Reportable 02/26/19 11:01 Not Reportable 02/26/19 11:01 Not Reportable 02/26/19 11:01 Not Reportable 02/26/19 11:01 Not Reportable 02/26/19 11:01 Not Reportable 02/26/19 11:01 Not Reportable 02/26/19 11:01 Acanthocytes (Spur) Not Reportable 02/26/19 11:01 Rouleaux Not Reportable 02/26/19 11:01 Not Reportable 02/26/19 11:01 Not Reportable 02/26/19 11:01 Not Reportable 02/26/19 11:01 Not Reportable 02/26/19 11:01 Hem Pathologist Commnt No 02/26/19 11:01 Sodium 133 mmol/L (137-145) L 03/08/19 07:30 Potassium 5.5 mmol/L (3.6-5.0) H 03/08/19 07:30 Chloride 93.9 mmol/L (98-107) L 03/08/19 07:30 Carbon Dioxide 25 mmol/L (22-30) 03/08/19 07:30 20 mmol/L 03/08/19 07:30 BUN 15 mg/dL (7-17) 03/08/19 07:30 3.3 mg/dL (0.7-1.2) H 03/08/19 07:30 Estimated GFR 16 ml/min 03/08/19 07:30 5 % 03/08/19 07:30 Glucose 108 mg/dL (65-100) H 03/08/19 07:30 POC Glucose 277 (70-105) H 03/09/19 11:39 6.8 % (4-6) H 03/08/19 05:03 Calcium 8.8 mg/dL (8.4-10.2) 03/08/19 07:30 0.40 mg/dL (0.1-1.2) 02/26/19 11:01 AST 32 units/L (5-40) 02/26/19 11:01 ALT 17 units/L (7-56) 02/26/19 11:01 382 units/L (35-129) H 02/26/19 11:01 5.7 g/dL (6.3-8.2) L 02/26/19 11:01 2.6 g/dL (3.9-5) L 02/26/19 11:01 0.8 % 02/26/19 11:01 Random Vancomycin 27.9 ug/mL (0-40.0) 03/03/19 06:35 Hepatitis A IgM Ab Non-reactive (NonReactive) 02/28/19 10:48 Hep Bs Antigen Non-reactive (Negative) 02/28/19 10:48 Hep B Core IgM Ab Non-reactive (NonReactive) 02/28/19 10:48 Non-reactive (NonReactive) 02/28/19 10:48 Active Medications - Current Medications Current Medications: Generic Name Dose Route Start Last Admin Trade Name Freq PRN Reason Stop Dose Admin Albuterol 2.5 mg 02/25/19 18:39 03/07/19 07:24 Proventil IH 2.5 mg Q4HRT PRN Administration Shortness Of Breath Amlodipine Besylate 5 mg 02/26/19 08:00 03/09/19 10:09 Norvasc PO 5 mg QDAY JUAQUIN Administration Aspirin 81 mg 02/26/19 08:00 03/09/19 10:08 Halfprin Ec PO 81 mg QDAY JUAQUIN Administration Bisacodyl 10 mg 03/07/19 15:19 Dulcolax WI QDAY PRN Constipation Calcium Acetate 667 mg 02/26/19 07:30 03/09/19 11:48 Phoslo PO 667 mg AC JUAQUIN Administration Clopidogrel Bisulfate 75 mg 02/26/19 08:00 03/09/19 10:09 Plavix PO 75 mg QDAY JUAQUIN Administration Dextrose 50 ml 03/03/19 16:04 03/09/19 07:48 D50w (25gm) Syringe IV 50 ml PRN PRN Administration Hypoglycemia Diphenhydramine HCl 25 mg 02/25/19 18:39 03/08/19 18:23 Benadryl PO 25 mg Q6H PRN Administration Itching Docusate Sodium 100 mg 03/06/19 23:00 03/09/19 10:08 Colace PO 100 mg BID JUAQUIN Administration Ezetimibe 10 mg 02/25/19 22:00 03/08/19 22:03 Zetia PO 10 mg HS JUAQUIN Administration Epoetin [place] 10,000 unit 02/26/19 13:00 03/07/19 20:11 Procrit IV 10,000 unit ANNI JUAQUIN Administration Heparin Sodium (Porcine) 5,000 unit 02/25/19 22:00 03/09/19 13:48 Heparin SUB-Q 5,000 unit Q8HR JUAQUIN Administration Sodium Chloride 100 mls @ 999 mls/hr 02/26/19 12:30 Nacl 0.9% IV ANNI PRN Hypotension Vancomycin HCl 750 mg/ Sodium 265 mls @ 166.667 mls/hr 03/05/19 18:00 03/07/19 22:09 Chloride IV 03/19/19 19:36 166.667 mls/hr TuThSa@1800 JUAQUIN Administration Insulin Human Lispro 0 unit 03/03/19 16:30 03/09/19 07:49 Humalog SUB-Q Not Given [facility] Protocol Insulin Human Lispro 2 unit 03/07/19 16:30 03/09/19 07:49 Humalog SUB-Q Not Given [facility] Levothyroxine Sodium 50 mcg 02/26/19 06:00 03/09/19 05:32 Synthroid PO 50 mcg DAILY@0600 JUAQUIN Administration Multivit/Ca Carb/B Cmplx/FA/Prenat 1 cap 02/27/19 08:00 03/09/19 10:08 Renal Caps PO 1 cap QDAY JUAQUIN Administration Ondansetron HCl 4 mg 03/06/19 02:49 Zofran IV Q8H PRN Nausea And Vomiting Oxycodone/Acetaminophen 1 tab 02/25/19 18:39 03/08/19 18:23 Percocet 5/325 PO 1 tab Q6H PRN Administration Pain, Moderate (4-6) Pantoprazole Sodium 40 mg 03/07/19 08:00 03/09/19 10:08 Protonix PO 40 mg QDAY JUAQUIN Administration Polyethylene Glycol 17 gm 03/06/19 22:22 Miralax 3350 PO QDAY PRN Constipation Pravastatin Sodium 40 mg 02/25/19 21:00 03/08/19 22:03 Pravachol PO 40 mg QHS JUAQUIN Administration Pregabalin 75 mg 02/25/19 22:00 03/08/19 22:02 Lyrica PO 75 mg HS JUAQUIN Administration Simethicone 80 mg 02/28/19 10:11 02/28/19 11:25 Mylicon PO 80 mg Q6H PRN Administration Gas pain Nutrition/Malnutrition Assess - Dietary Evaluation Nutrition/Malnutrition Findings: Nutrition Notes Start: 03/04/19 17:30 Freq: Status: Active Protocol: Document 03/04/19 17:30 RM (Rec: 03/04/19 17:31 RM [email or web address]) Nutrition Notes Need for Assessment generated from: LOS Initial or Follow up Brief Note Height 4 ft 11 in Weight 67.8 kg [place] Body Weight (kg) 43.18 BMI 30.2 Subjective/Other Information Screened for LOS. Recorded PO intake 81% X 4 meals. Nutrition Intervention Revisit per MD consult or patient Sign Off request:
[2019-03-09 16:47] LABS: Hematocrit 24.1 % (30.3-42.9); Hemoglobin 7.5 gm/dl (10.1-14.3); Mean Corpuscular HGB Conc 31 % (30-34); Mean Corpuscular Volume 78 fl (79-97); Platelet Count 313 K/mm3 (140-440); Red Blood Count 3.07 M/mm3 (3.65-5.03); Red Cell Distribution Width 22.5 % (13.2-15.2)
[2019-03-09 17:20] LABS: Calcium 9.1 mg/dL (8.4-10.2)
[2019-03-09] MEDS ORDERED: NACL 0.9% 100 ML IV PRN (17:42)
[2019-03-09] MEDS ORDERED: NACL 0.9% 1000 ML 1,000 ML ONE (20:59)
[2019-03-09] MEDS: PROCRIT IV SCH (22:25)
[2019-03-09] MEDS: LYRICA PO SCH (22:39)
[2019-03-09] MEDS: ZETIA PO SCH (22:40)
[2019-03-09] MEDS: PRAVACHOL PO SCH (22:41)
[2019-03-10] MEDS: LYRICA PO SCH ×2 (00:52→22:44)
[2019-03-10] MEDS: HEPARIN SUB-Q SCH ×3 (06:00→22:43)
[2019-03-10] MEDS: SYNTHROID PO SCH (06:02)
[2019-03-10] MEDS: HumaLOG SUB-Q SCH ×5 (06:02→23:46)
--- NOTE | 2019-03-10 07:28 | Progress Note ---
Assessment and Plan 1. ESRD: Continue hemodialysis three times a week, TTS schedule. 2. FEN: Volume overload, s/p additional session of Isolated UF yesterday and had 3 Lts removed. 3 - 3.5 Lts of UF with HD today. Hyperkalemia, improved. 3. Anemia: Epogen with HD. Monitor H/H. 4. PAD: S/p R LE angioplasty and R BKA. 5. GILBERTO: CPAP. 6. DM type 2. 7. HTN: BP well controlled. In Acute rehab unit. Subjective Date of service: 03/10/19 Principal diagnosis: R BKA Interval history: Patient was seen and examined at the bedside. Doing ok. Objective - Vital Signs Vital signs: Vital Signs - 12hr 03/09/19 03/09/19 03/09/19 19:40 19:45 20:00 Temperature 98 F Pulse Rate 75 73 73 Respiratory 20 Rate Blood Pressure 150/74 152/73 162/77 O2 Sat by Pulse Oximetry 03/09/19 03/09/19 03/09/19 20:15 20:30 20:45 Temperature Pulse Rate 70 70 71 Respiratory Rate Blood Pressure 149/61 148/60 131/64 O2 Sat by Pulse Oximetry 03/09/19 03/09/19 03/09/19 21:00 21:15 21:30 Temperature Pulse Rate 73 72 68 Respiratory Rate Blood Pressure 145/71 138/61 132/60 O2 Sat by Pulse 97 Oximetry 03/09/19 03/09/19 21:45 22:29 Temperature 97.8 F Pulse Rate 62 73 Respiratory 18 Rate Blood Pressure 133/58 139/65 O2 Sat by Pulse Oximetry - General Appearance General appearance: well-developed, well-nourished, appears stated age, other (no distress) EENT: ATNC, PERRL, hearing diminished Neck: supple Respiratory: Present: Rales Cardiology: regular, S1S2, no murmurs Gastrointestinal: normoactive bowel sounds, no tenderness, no distended Integumentary: no rash, warm and dry Neurologic: no asterixis, disoriented, other (decreased vision) Musculoskeletal: other (1+ edema of both LEs, L arm AVF, R BKA) Psychiatric: cooperative - Lab 03/10/19 07:48 03/10/19 07:48 Most recent lab results Calcium 9.1 mg/dL (8.4-10.2) 03/09/19 16:21 Medications & Allergies - Medications Allergies/Adverse Reactions: Allergies Iodinated Contrast- Oral and IV Dye Allergy (Verified 11/25/18 15:48) Hives, Rash Penicillins Allergy (Verified 11/25/18 15:48) Hives Home Medications: Home Medications Medication Instructions Recorded Confirmed Last Taken Type B Complex 11/Folic/C/Biot/Zinc 1 each PO DAILY 09/06/15 02/25/19 11/25/18 20:00 History [Dialyvite with Zinc Tablet] Lispro Insulin [HumaLOG] 7 unit SQ AC 11/25/18 02/25/19 Unknown History Pantoprazole Sodium 40 mg PO DAILY 11/25/18 02/25/19 11/26/18 05:00 History amLODIPine [Norvasc] 5 mg PO DAILY 11/25/18 02/25/19 11/28/18 History 2.5 Ranitidine HCl [Zantac] 300 mg PO BID 02/16/19 02/25/19 Unknown History Calcium Acetate 667 mg PO AC 02/18/19 02/25/19 Unknown History Levothyroxine 0.05 mg PO QDAY 02/18/19 02/25/19 Unknown History Lyrica 75 mg PO HS 02/18/19 02/25/19 Unknown History Pravastatin 40 mg PO HS 02/18/19 02/25/19 Unknown History Zetia 10 mg PO HS 02/18/19 02/25/19 Unknown History Aspirin EC 81 mg PO QDAY #30 tablet 02/25/19 02/25/19 Unknown Rx Clopidogrel [Plavix] 75 mg PO QDAY #30 tablet 02/25/19 02/25/19 Unknown Rx oxyCODONE /ACETAMINOPHEN [Percocet 1 tab PO Q6H PRN #14 tablet 02/25/19 02/25/19 Unknown Rx 5/325 mg] Active Medications: Generic Name Dose Route Start Last Admin Trade Name Freq PRN Reason Stop Dose Admin Albuterol 2.5 mg 02/25/19 18:39 03/07/19 07:24 Proventil IH 2.5 mg Q4HRT PRN Administration Shortness Of Breath Amlodipine Besylate 5 mg 02/26/19 08:00 03/09/19 10:09 Norvasc PO 5 mg QDAY JUAQUIN Administration Aspirin 81 mg 02/26/19 08:00 03/09/19 10:08 Halfprin Ec PO 81 mg QDAY JUAQUIN Administration Bisacodyl 10 mg 03/07/19 15:19 Dulcolax AK QDAY PRN Constipation Calcium Acetate 667 mg 02/26/19 07:30 03/09/19 17:05 Phoslo PO 667 mg AC JUAQUIN Administration Clopidogrel Bisulfate 75 mg 02/26/19 08:00 03/09/19 10:09 Plavix PO 75 mg QDAY JUAQUIN Administration Dextrose 50 ml 03/03/19 16:04 03/09/19 07:48 D50w (25gm) Syringe IV 50 ml PRN PRN Administration Hypoglycemia Diphenhydramine HCl 25 mg 02/25/19 18:39 03/08/19 18:23 Benadryl PO 25 mg Q6H PRN Administration Itching Docusate Sodium 100 mg 03/06/19 23:00 03/09/19 22:41 Colace PO Not Given BID JUAQUIN Ezetimibe 10 mg 02/25/19 22:00 03/09/19 22:40 Zetia PO 10 mg HS JUAQUIN Administration Epoetin [place] 10,000 unit 02/26/19 13:00 03/09/19 22:25 Procrit IV 10,000 unit ANNI JUAQUIN Administration Heparin Sodium (Porcine) 5,000 unit 02/25/19 22:00 03/10/19 06:00 Heparin SUB-Q 5,000 unit Q8HR JUAQUIN Administration Vancomycin HCl 750 mg/ Sodium 265 mls @ 166.667 mls/hr 03/05/19 18:00 03/07/19 22:09 Chloride IV 03/19/19 19:36 166.667 mls/hr TuThSa@1800 JUAQUIN Administration Sodium Chloride 100 mls @ 999 mls/hr 03/09/19 17:42 Nacl 0.9% IV ANNI PRN Hypotension Insulin Human Lispro 0 unit 03/09/19 15:00 03/10/19 06:02 Humalog SUB-Q Not Given Q4H [facility] Protocol Levothyroxine Sodium 50 mcg 02/26/19 06:00 03/10/19 06:02 Synthroid PO 50 mcg DAILY@0600 [facility] Administration Multivit/Ca Carb/B Cmplx/FA/Prenat 1 cap 02/27/19 08:00 03/09/19 10:08 Renal Caps PO 1 cap QDAY JUAQUIN Administration Ondansetron HCl 4 mg 03/06/19 02:49 Zofran IV Q8H PRN Nausea And Vomiting Oxycodone/Acetaminophen 1 tab 02/25/19 18:39 03/08/19 18:23 Percocet 5/325 PO 1 tab Q6H PRN Administration Pain, Moderate (4-6) Pantoprazole Sodium 40 mg 03/07/19 08:00 03/09/19 10:08 Protonix PO 40 mg QDAY JUAQUIN Administration Polyethylene Glycol 17 gm 03/06/19 22:22 Miralax 3350 PO QDAY PRN Constipation Pravastatin Sodium 40 mg 02/25/19 21:00 03/09/19 22:41 Pravachol PO 40 mg QHS JUAQUIN Administration Pregabalin 75 mg 02/25/19 22:00 03/10/19 00:52 Lyrica PO Not Given [facility] Simethicone 80 mg 02/28/19 10:11 02/28/19 11:25 Mylicon PO 80 mg Q6H PRN Administration Gas pain
[2019-03-10 08:00] LABS: Hematocrit 24.6 % (30.3-42.9); Hemoglobin 7.7 gm/dl (10.1-14.3); Mean Corpuscular HGB Conc 31 % (30-34); Mean Corpuscular Volume 77 fl (79-97); Platelet Count 283 K/mm3 (140-440); Red Blood Count 3.21 M/mm3 (3.65-5.03)
[2019-03-10 08:01] LABS: Red Cell Distribution Width 22.4 % (13.2-15.2)
[2019-03-10 08:17] LABS: Calcium 9.6 mg/dL (8.4-10.2)
[2019-03-10] MEDS: NORVASC PO SCH (09:01)
[2019-03-10] MEDS: HALFPRIN EC PO SCH (09:01)
[2019-03-10] MEDS: Renal Caps PO SCH (09:01)
[2019-03-10] MEDS: COLACE PO SCH ×2 (09:01→22:44)
[2019-03-10] MEDS: PHOSLO PO SCH ×3 (09:01→18:13)
[2019-03-10] MEDS: PLAVIX PO SCH (09:01)
[2019-03-10] MEDS: PROTONIX PO SCH (09:02)
--- NOTE | 2019-03-10 09:19 | Progress Note ---
Subjective Date of service: 03/10/19 Principal diagnosis: R BKA Interval history: 78-year-old female with right foot pain presented to ER and found to have sepsis. Amputation was previously discussed for the right lower extremity gangrene however family refused. Patient had been undergoing treatment HBOT without resolution. ID was consulted and started antibiotics. Vascular surgery performed angiography. Afterwards she was scheduled for a right BKA which proceeded without incident. After the patient was medically stabilized they were transferred for further rehabilitation. All available medical records have been reviewed. Plan of care was discussed with patient and family. Patient is participating in therapy and making reasonable progress. Taking rest breaks as needed. +BM. GLU is variable, Appreciate hospitalist assistance. Monitor. Breathing improved with supplemental O2. Patient states HD is removing more fluid. Hgb improving on procrit - appreciate Dr Lopez's assistance. Some phantom sensation but no overt phantom pain. Standing with therapy and a ssistance for short period, SBT improving. Continue therapy as planned. No signs of infection in RLE, mike removed by DR Munoz this AM, Follw up in 2 wks for prosthesis scheduling. Continues vanc on dialysis days. Discussed in Team Conference. Still making progress. Would like to see improved ability to stand but she may be getting close to baseline with her level of activity. Will be a K1 ambulator. Improvements seen in cognition since starting. Plan to d/c next Saturday. All records, vitals, labs and medications were reviewed. No other issues per patient, nursing or therapy. Objective - Exam Narrative Exam: MUSCULOSKELETAL SPECIALTY EXAM CONSTITUTIONAL: Well developed, well nourished, appropriately groomed EENT: Legally blind. Oropharynx clear. RESPIRATORY: Clear to auscultation bilaterally, no increased work of breathing, no crackles. Supplemental O2 CARDIOVASCULAR: Regular Rate/ Rhythm, no swelling, edema or tenderness in BUE or BLE. Pulses palpable in all extremities. All extremities warm. Thrill in LUE GI: + bowel sounds, soft, nondistended. INTEGUMENTARY: LLE with decrease in edema. Otherwise, normal, no lesion, rash, masses or bruising noted in extremities. Surgical wound on right lower extremity is healing well, mike have been removed. MUSCULOSKELETAL: Right BKA, otherwise BUE and BLE normal without defect, crepitus, subluxation, effusion, arthritic changes or TTP. BUE 4/5, good ROM, with normal tone. LLE 4-/5 good ROM, with normal tone, RLE decreased ROM secondary to pain NEURO: CN 2-12 grossly intact. Sensation intact in all extremities. No tremor noted in 4 extremities. POSTURE and GAIT: Sitting posture good. Balance appears reasonable. Gait deferred, based on standing performance she may not be able to ambulate with just a walker without prosthesis. PSYCH: Alert, orientated x2, slightly confused at times and decreased memory, affect appears normal. - Constitutional Vitals: Vital Signs - 12hr 03/09/19 03/09/19 03/09/19 21:30 21:45 22:29 Temperature 36.6 C Pulse Rate 68 62 73 Respiratory 18 Rate Blood Pressure 132/60 133/58 139/65 O2 Sat by Pulse Oximetry 03/10/19 03/10/19 03/10/19 07:49 08:13 09:01 Temperature 37.1 C Pulse Rate 73 73 Respiratory 18 Rate Blood Pressure 130/53 130/53 O2 Sat by Pulse 92 95 Oximetry - Allied health notes Allied health notes reviewed: nursing, PT, ST, OT FIMS assessment as documented by PT/OT/ST: Grooming Patient cleans teeth/dentures: Yes Patient holguin/brushes hair: Yes Patient washes, rinses and Yes dries face: Patient washes, rinses and Yes dries hands: Patient shaves: No Patient applies make-up: No Patient performs (no make-up/ 12/04 (100%) shaving): Grooming FIM Score 4. Minimal Assistance (Patient = 75% or more. Needs touching.) Toileting Toileting Device Bedpan Toileting FIM Score 2. Maximal Assistance (Patient = 25% or more) Social interaction/Memory/Problem solving Social Interaction FIM Score 7. Complete [place] (Interacts appropriately. Controls temper.) Memory FIM Score 4. Minimal Assistance (Recognizes and remembers 75-90%.) Problem Solving FIM Score 4. Minimal Assistance (Solves routine problems 75-90%.) Transfers Mode of Locomotion: Wheelchair Bed/Chair/Wheelchair Transfers 3. Moderate Assistance (Patient = 50% or more. FIM Score Some lifting.) Toilet Transfers FIM Score 1. Total Assistance (Patient less than 25%. 2 or more persons.) Patient transferred to: Shower Shower Transfers FIM Score 1. Total Assistance (Patient less than 25%. 2 or more persons.) Locomotion- Stairs Stairs FIM Score 0. Activity does not occur Locomotion- walk/wheelchair Most Frequent Mode of Wheelchair Locomotion: Ambulation Distance 0 Walking FIM Score 0. Activity does not occur Wheelchair Propulsion Distance 150 Wheelchair FIM Score 5. Supervision (Minimum 150 ft. supv./cues or 50 ft. independently.) Eating Eating FIM Score 7. Complete [place] (Cuts meat, opens containers, regular diet.) Dressing-Upper body Patient retrieves clothing No items: Patient applies/removes UE No: n/a prosthesis or orthosis: Upper Body Dressing FIM Score 4. Minimal Assistance (Patient = 75% or more. Needs touching.) Dressing-lower body Patient retrieves clothing No items: Patient applies/removes LE No: n/a prosthesis or orthosis: Lower Body Dressing FIM Score 2. Maximal Assistance (Patient = 25% or more) - Labs CBC & Chem 7: 03/10/19 07:48 03/10/19 07:48 Labs: Laboratory Results - last 72 hr 03/07/19 03/07/19 03/07/19 11:52 13:05 22:34 WBC RBC Hgb Hct MCV MCH MCHC RDW Plt Count Sodium Potassium Chloride Carbon Dioxide Anion Gap BUN Creatinine Estimated GFR BUN/Creatinine Ratio Glucose POC Glucose 354 H 479 H 108 H Hemoglobin A1c Calcium Random Vancomycin 03/08/19 03/08/19 03/08/19 05:03 05:34 07:30 WBC 5.0 RBC 2.95 L Hgb 7.2 L Hct 23.0 L MCV 78 L MCH 24 L MCHC 31 RDW 22.8 H Plt Count 283 Sodium Potassium Chloride Carbon Dioxide Anion Gap BUN Creatinine Estimated GFR BUN/Creatinine Ratio Glucose POC Glucose 126 H Hemoglobin A1c 6.8 H Calcium Random Vancomycin 03/08/19 03/08/19 03/08/19 07:30 07:32 11:49 WBC RBC Hgb Hct MCV MCH MCHC RDW Plt Count Sodium 133 L Potassium 5.5 H Chloride 93.9 L Carbon Dioxide 25 Anion Gap 20 BUN 15 Creatinine 3.3 H Estimated GFR 16 BUN/Creatinine Ratio 5 Glucose 108 H POC Glucose 102 247 H Hemoglobin A1c Calcium 8.8 Random Vancomycin 03/08/19 03/08/19 03/09/19 16:34 21:07 07:23 WBC RBC Hgb Hct MCV MCH MCHC RDW Plt Count Sodium Potassium Chloride Carbon Dioxide Anion Gap BUN Creatinine Estimated GFR BUN/Creatinine Ratio Glucose POC Glucose 262 H 80 < 40 L Hemoglobin A1c Calcium Random Vancomycin 03/09/19 03/09/19 03/09/19 07:40 07:48 11:39 WBC RBC Hgb Hct MCV MCH MCHC RDW Plt Count Sodium Potassium Chloride Carbon Dioxide Anion Gap BUN Creatinine Estimated GFR BUN/Creatinine Ratio Glucose POC Glucose < 40 L 218 H 277 H Hemoglobin A1c Calcium Random Vancomycin 03/09/19 03/09/19 03/09/19 16:21 16:21 16:41 WBC 7.2 RBC 3.07 L Hgb 7.5 L Hct 24.1 L MCV 78 L MCH 25 L MCHC 31 RDW 22.5 H Plt Count 313 Sodium 130 L Potassium 4.7 Chloride 90.6 L Carbon Dioxide 25 Anion Gap 19 BUN 28 H Creatinine 4.8 H Estimated GFR 11 BUN/Creatinine Ratio 6 Glucose 329 H POC Glucose 331 H Hemoglobin A1c Calcium 9.1 Random Vancomycin 03/09/19 03/10/19 03/10/19 22:11 03:12 07:48 WBC 7.3 RBC 3.21 L Hgb 7.7 L Hct 24.6 L MCV 77 L MCH 24 L MCHC 31 RDW 22.4 H Plt Count 283 Sodium Potassium Chloride Carbon Dioxide Anion Gap BUN Creatinine Estimated GFR BUN/Creatinine Ratio Glucose POC Glucose 434 H 226 H Hemoglobin A1c Calcium Random Vancomycin 03/10/19 03/10/19 03/10/19 07:48 07:48 07:57 WBC RBC Hgb Hct MCV MCH MCHC RDW Plt Count Sodium 136 L Potassium 4.8 Chloride 93.6 L Carbon Dioxide 27 Anion Gap 20 BUN 32 H Creatinine 5.6 H Estimated GFR 9 BUN/Creatinine Ratio 6 Glucose 115 H POC Glucose 125 H Hemoglobin A1c Calcium 9.6 Random Vancomycin 30.9 Assessment and Plan R BKA: Will likely be a K1 ambulator, K2 not likely in reach at this point. After speaking with daughter, patient will most likely remain K1. Monitor wound. On isolation for MRSA in Blood with 4 weeks vancomycin during dialysis (03/19/2019 per ID notes). Continue to work on transfers and mobility. Monitor for phantom sensation/pain. Discussed prosthesis. Last blood culture was negative and patient remains on antibiotics with no excessive drainage from the wound. GILBERTO: Cont CPAP HTN: Monitor BP and adjust meds for normotension DM: Carb controlled diet. Monitor glucose. SSI. Insulin adjusted by IM Decreased memory: [employer] to treat Hypothyroidism: Continue medication Z73.6 ADL dysfunction: OT will work on improving ability to perform ADLs (including assistive devices) to increase independence and decrease caregiver burden and improve functional transfers and mobility training. R26.2 Difficulty walking: PT will work on gait training and proper use of assistive devices and advance as appropriate to use of stairs and outside ambulation on uneven surfaces. R26.81 Unsteadiness on feet: PT will work on improving static and dynamic sitting and standing balance as well as proper use of assistive devices to decrease risk of falls. R26.89 Abnormality of gait: PT will work to improve safety and efficiency of gait through neuromotor training and gait training along with instruction on proper use of assistive devices. M62.81 Muscle weakness: PT & OT will work on strengthening exercises to improve functional strength including mixture of closed and open kinetic chain exercises. R53.81 Debility: PT & OT will work on improving overall functional status to improve participation with ADLs, mobility and social involvement. R53.83 Fatigue: PT & OT will work on improving endurance through aerobic exercises and therapeutic activity while monitoring patients tolerance for activity and vital signs as needed. DVT ppx: heparin Pain: Continue physical modalities in therapy and pain medications as needed to achieve functional pain control. Sleep: Monitor and address as needed. Bowel: Monitor and address as needed. Appetite: Monitor and address as needed. Discharge planning: Plan to d/c Saturday 03/17. Will continue discussion with therapy team, SW, patient and family. Restrictions/ Precautions: Falls WB status: FWB Functional Hx: ADLs: Independent Cognition: Needed assistance Mobility: Cane and w/c for distance Barriers to Discharge: Decreased mobility and ability to perform self care, balance deficits, weakness, cognition Estimated Length of Stay: 14-18 days Discharge Destination: Home with family with supervision
--- NOTE | 2019-03-10 10:26 | Progress Note ---
Assessment and Plan - Patient Problems (1) Status post below knee amputation of right lower extremity Current Visit: Yes Status: Acute Plan to address problem: 1) Davi removed and steri-strips applied. 2) Continue rehab 3) F/u in my office or Wound Clinic in 2 weeks for scheduling of prosthesis fitting. Subjective Date of service: 03/10/19 Patient Reports: Positive: no new complaints Objective Vital Signs - 12hr 03/09/19 03/10/19 03/10/19 22:29 07:49 08:13 Temperature 97.8 F 98.7 F Pulse Rate 73 73 Respiratory 18 18 Rate Blood Pressure 139/65 130/53 O2 Sat by Pulse 92 95 Oximetry 03/10/19 09:01 Temperature Pulse Rate 73 Respiratory Rate Blood Pressure 130/53 O2 Sat by Pulse Oximetry - Integumentary other (Right BKA stump is clean and dry. Pt has good extension.) - Labs 03/10/19 07:48 03/10/19 07:48 Diabetes panel 03/09/19 03/10/19 Range/Units 16:21 07:48 Sodium 130 L 136 L (137-145) mmol/L Potassium 4.7 4.8 (3.6-5.0) mmol/L Chloride 90.6 L 93.6 L (98-107) mmol/L Carbon Dioxide 25 27 (22-30) mmol/L BUN 28 H 32 H (7-17) mg/dL Creatinine 4.8 H 5.6 H (0.7-1.2) mg/dL Glucose 329 H 115 H (65-100) mg/dL Calcium 9.1 9.6 (8.4-10.2) mg/dL Calcium panel 03/09/19 03/10/19 Range/Units 16:21 07:48 Calcium 9.1 9.6 (8.4-10.2) mg/dL Pituitary panel 03/09/19 03/10/19 Range/Units 16:21 07:48 Sodium 130 L 136 L (137-145) mmol/L Potassium 4.7 4.8 (3.6-5.0) mmol/L Chloride 90.6 L 93.6 L (98-107) mmol/L Carbon Dioxide 25 27 (22-30) mmol/L BUN 28 H 32 H (7-17) mg/dL Creatinine 4.8 H 5.6 H (0.7-1.2) mg/dL Glucose 329 H 115 H (65-100) mg/dL Calcium 9.1 9.6 (8.4-10.2) mg/dL Adrenal panel 03/09/19 03/10/19 Range/Units 16:21 07:48 Sodium 130 L 136 L (137-145) mmol/L Potassium 4.7 4.8 (3.6-5.0) mmol/L Chloride 90.6 L 93.6 L (98-107) mmol/L Carbon Dioxide 25 27 (22-30) mmol/L BUN 28 H 32 H (7-17) mg/dL Creatinine 4.8 H 5.6 H (0.7-1.2) mg/dL Glucose 329 H 115 H (65-100) mg/dL Calcium 9.1 9.6 (8.4-10.2) mg/dL
--- NOTE | 2019-03-10 16:23 | Progress Note ---
Assessment and Plan Assessment and plan: Hospitalist client insights consultant for DM in the Inpatient Rehab unit of [facility] Patient is a 78-year-old woman with a history of PVD, DM type 2, ESRD on hemodialysis, GERD, CVA, heart failure, hypertension, hypothyroidism, legally blind and GILBERTO who presented to [facility] inpatient rehab unit following right leg BKA. Hospitalist consulted and following for uncontrolled DM. 03/09/19 Blood glucose is very labile because patient has Brittle Diabetes Mellitus. Long acting insulin cause clinical pharmacy specialist hypoglycemia; nonetheless, her blood sugars are very high during mealtime, so I will add fast acting insulin with meals and increase SSI to high dose protocol. Will continue to monitor CODE MET called, AMS/somnolent due to BG 27. Dextrose was to be given then she lost IV access, so I ordered Glucagon IM; however, she was waking up and drank OJ then IV re-established and she was given Dextrose IV and 1mg IM Glucagon. Her blood glucose feliz rocketed to 218 and she was A/o x 3. qc lab technician hypoglycemia, suspect Somogyi effect: discontinue long acting insulin and cover with SSI for now. Acute Metabolic Encephalopathy secondary to Hypoglycemia;Resolved Patient with very liabile Blood glucose. She is not sure how much insulin she gets at home but states they use sliding scale. She will benefit from oral hypoglycim agents as outpatient but i wonder if she has had bouts of hypoglycemia in the past. DM Type 2 with hyperglycemia, a1c 6.8: continue SSI monitor SOB with perihilar edema on 03/05/19 CXR: treated with HD and repeat CXR, shows improvement GILBERTO ON CPAP: Stable GERD: Famotidine ESRD: HD tts, Nephrology following Right foot gangrene with severe PVD s/p BKA: Continue rehab, PT, OT HTN, controlled: low salt diet and treat with antihypertensives HX OF CVA: continue plavix, continue statin, ZETIA Hyperlipidemia: statin Hypothyrodisim: CONTINUE SYNTHROID Anemia: Monitor, on epogen DVT/GI prophylaxis History Interval history: Patient seen and examined, resting comfortable. She is currently at rehabilitation station participates in activities and rehabilitation. Hospitalist Physical - Physical exam Narrative exam: Gen: WDWN, NAD, Awake, Alert, Orientated HEENT: NCAT, EOMI, PERRL, OP Clear Neck: supple, no adenopathy, no thyromegaly, no JVD CVS/Heart: RRR, normal S1S2, pulses present bilaterally Chest/Lungs: CTA B, Symmetrical chest expansion, good air entry bilaterally GI/Abdomen: soft, NTND, good bowel sounds, no guarding or rebound /Bladder: no suprapubic tenderness, no CVA or paraspinal tenderness Extermity/Skin: no c/c/e,, excoriated skin rashes noted crusted over. MSK: FROM x 3, with right leg BKA and mike still in place, wound looks ok, Neuro: CN 2-12 grossly intact, no new focal deficits Psych: calm - Constitutional Vitals: Temp Pulse Resp BP Pulse Ox 98.7 F 73 18 130/53 95 03/10/19 07:49 03/10/19 09:01 03/10/19 07:49 03/10/19 09:01 03/10/19 08:13 General appearance: Present: no acute distress, well-nourished Results - Labs CBC & Chem 7: 03/10/19 07:48 03/10/19 07:48 Labs: Laboratory Last Values WBC 7.3 K/mm3 (4.5-11.0) 03/10/19 07:48 RBC 3.21 M/mm3 (3.65-5.03) L 03/10/19 07:48 Hgb 7.7 gm/dl (10.1-14.3) L 03/10/19 07:48 Hct 24.6 % (30.3-42.9) L 03/10/19 07:48 MCV 77 fl (79-97) L 03/10/19 07:48 MCH 24 pg (28-32) L 03/10/19 07:48 MCHC 31 % (30-34) 03/10/19 07:48 RDW 22.4 % (13.2-15.2) H 03/10/19 07:48 Plt Count 283 K/mm3 (140-440) 03/10/19 07:48 Lymph % (Auto) [employer] 02/26/19 11:01 [place] % (Auto) [employer] 02/26/19 11:01 Eos % (Auto) [employer] 02/26/19 11:01 Baso % (Auto) [place] [employer] 02/26/19 11:01 Lymph # [place] [employer] 02/26/19 11:01 [place] # [employer] 02/26/19 11:01 Eos # [employer] 02/26/19 11:01 Baso # [place] [employer] 02/26/19 11:01 Add Manual Diff Complete 02/26/19 11:01 Total Counted 100 02/26/19 11:01 Seg Neutrophils % [place] [employer] 02/26/19 11:01 Seg Neuts % (Manual) 86.0 % (40.0-70.0) H 02/26/19 11:01 0 % 02/26/19 11:01 4.0 % (13.4-35.0) L 02/26/19 11:01 Reactive Lymphs % (Man) 0 % 02/26/19 11:01 9.0 % (0.0-7.3) H 02/26/19 11:01 1.0 % (0.0-4.3) 02/26/19 11:01 0 % (0.0-1.8) 02/26/19 11:01 0 % 02/26/19 11:01 0 % 02/26/19 11:01 0 % 02/26/19 11:01 0 % 02/26/19 11:01 Nucleated RBC % Not Reportable 02/26/19 11:01 Seg Neutrophils # [place] 02/26/19 11:01 Seg Neutrophils # Man 6.4 K/mm3 (1.8-7.7) 02/26/19 11:01 Band Neutrophils # 0.0 K/mm3 02/26/19 11:01 0.3 K/mm3 (1.2-5.4) L 02/26/19 11:01 Abs React Lymphs (Man) 0.0 K/mm3 02/26/19 11:01 0.7 K/mm3 (0.0-0.8) 02/26/19 11:01 0.1 K/mm3 (0.0-0.4) 02/26/19 11:01 0.0 K/mm3 (0.0-0.1) 02/26/19 11:01 0.0 K/mm3 02/26/19 11:01 0.0 K/mm3 02/26/19 11:01 0.0 K/mm3 02/26/19 11:01 Blast Cells # 0.0 K/mm3 02/26/19 11:01 WBC Morphology Not Reportable 02/26/19 11:01 Hypersegmented Neuts Not Reportable 02/26/19 11:01 Hyposegmented Neuts Not Reportable 02/26/19 11:01 Hypogranular Neuts Not Reportable 02/26/19 11:01 Not Reportable 02/26/19 11:01 Not Reportable 02/26/19 11:01 Not Reportable 02/26/19 11:01 Not Reportable 02/26/19 11:01 Not Reportable 02/26/19 11:01 Not Reportable 02/26/19 11:01 Consistent w auto 02/26/19 11:01 Not Reportable 02/26/19 11:01 Plt Clumps, EDTA Not Reportable 02/26/19 11:01 Not Reportable 02/26/19 11:01 Not Reportable 02/26/19 11:01 Not Reportable 02/26/19 11:01 Plt Morphology Comment Not Reportable 02/26/19 11:01 RBC Morphology Not Reportable 02/26/19 11:01 Dimorphic RBCs Not Reportable 02/26/19 11:01 Few 02/26/19 11:01 1+ 02/26/19 11:01 Not Reportable 02/26/19 11:01 1+ 02/26/19 11:01 Not Reportable 02/26/19 11:01 Not Reportable 02/26/19 11:01 Not Reportable 02/26/19 11:01 Not Reportable 02/26/19 11:01 Not Reportable 02/26/19 11:01 Few 02/26/19 11:01 Not Reportable 02/26/19 11:01 Few 02/26/19 11:01 Not Reportable 02/26/19 11:01 Not Reportable 02/26/19 11:01 Not Reportable 02/26/19 11:01 Not Reportable 02/26/19 11:01 Not Reportable 02/26/19 11:01 Not Reportable 02/26/19 11:01 Not Reportable 02/26/19 11:01 Acanthocytes (Spur) Not Reportable 02/26/19 11:01 Rouleaux Not Reportable 02/26/19 11:01 Not Reportable 02/26/19 11:01 Not Reportable 02/26/19 11:01 Not Reportable 02/26/19 11:01 Not Reportable 02/26/19 11:01 Hem Pathologist Commnt No 02/26/19 11:01 Sodium 136 mmol/L (137-145) L 03/10/19 07:48 Potassium 4.8 mmol/L (3.6-5.0) 03/10/19 07:48 Chloride 93.6 mmol/L (98-107) L 03/10/19 07:48 Carbon Dioxide 27 mmol/L (22-30) 03/10/19 07:48 20 mmol/L 03/10/19 07:48 BUN 32 mg/dL (7-17) H 03/10/19 07:48 5.6 mg/dL (0.7-1.2) H 03/10/19 07:48 Estimated GFR 9 ml/min 03/10/19 07:48 6 % 03/10/19 07:48 Glucose 115 mg/dL (65-100) H 03/10/19 07:48 POC Glucose 222 (70-105) H 03/10/19 12:19 6.8 % (4-6) H 03/08/19 05:03 Calcium 9.6 mg/dL (8.4-10.2) 03/10/19 07:48 0.40 mg/dL (0.1-1.2) 02/26/19 11:01 AST 32 units/L (5-40) 02/26/19 11:01 ALT 17 units/L (7-56) 02/26/19 11:01 382 units/L (35-129) H 02/26/19 11:01 5.7 g/dL (6.3-8.2) L 02/26/19 11:01 2.6 g/dL (3.9-5) L 02/26/19 11:01 0.8 % 02/26/19 11:01 Random Vancomycin 30.9 ug/mL (0-40.0) 03/10/19 07:48 Hepatitis A IgM Ab Non-reactive (NonReactive) 02/28/19 10:48 Hep Bs Antigen Non-reactive (Negative) 02/28/19 10:48 Hep B Core IgM Ab Non-reactive (NonReactive) 02/28/19 10:48 Non-reactive (NonReactive) 02/28/19 10:48 Active Medications - Current Medications Current Medications: Generic Name Dose Route Start Last Admin Trade Name Freq PRN Reason Stop Dose Admin Albuterol 2.5 mg 02/25/19 18:39 03/07/19 07:24 Proventil IH 2.5 mg Q4HRT PRN Administration Shortness Of Breath Amlodipine Besylate 5 mg 02/26/19 08:00 03/10/19 09:01 Norvasc PO 5 mg QDAY JUAQUIN Administration Aspirin 81 mg 02/26/19 08:00 03/10/19 09:01 Halfprin Ec PO 81 mg QDAY JUAQUIN Administration Bisacodyl 10 mg 03/07/19 15:19 Dulcolax NM QDAY PRN Constipation Calcium Acetate 667 mg 02/26/19 07:30 03/10/19 12:26 Phoslo PO 667 mg AC JUAQUIN Administration Clopidogrel Bisulfate 75 mg 02/26/19 08:00 03/10/19 09:01 Plavix PO 75 mg QDAY JUAQUIN Administration Dextrose 50 ml 03/03/19 16:04 03/09/19 07:48 D50w (25gm) Syringe IV 50 ml PRN PRN Administration Hypoglycemia Diphenhydramine HCl 25 mg 02/25/19 18:39 03/08/19 18:23 Benadryl PO 25 mg Q6H PRN Administration Itching Docusate Sodium 100 mg 03/06/19 23:00 03/10/19 09:01 Colace PO 100 mg BID JUAQUIN Administration Ezetimibe 10 mg 02/25/19 22:00 03/09/19 22:40 Zetia PO 10 mg HS JUAQUIN Administration Epoetin [place] 10,000 unit 02/26/19 13:00 03/09/19 22:25 Procrit IV 10,000 unit ANNI JUAQUIN Administration Heparin Sodium (Porcine) 5,000 unit 02/25/19 22:00 03/10/19 14:31 Heparin SUB-Q 5,000 unit Q8HR JUAQUIN Administration Vancomycin HCl 750 mg/ Sodium 265 mls @ 166.667 mls/hr 03/05/19 18:00 03/07/19 22:09 Chloride IV 03/19/19 19:36 166.667 mls/hr TuThSa@1800 JUAQUIN Administration Sodium Chloride 100 mls @ 999 mls/hr 03/09/19 17:42 Nacl 0.9% IV ANNI PRN Hypotension Insulin Human Lispro 0 unit 03/09/19 15:00 03/10/19 12:26 Humalog SUB-Q 2 unit Q4H JUAQUIN Administration Protocol Levothyroxine Sodium 50 mcg 02/26/19 06:00 03/10/19 06:02 Synthroid PO 50 mcg DAILY@0600 JUAQUIN Administration Multivit/Ca Carb/B Cmplx/FA/Prenat 1 cap 02/27/19 08:00 03/10/19 09:01 Renal Caps PO 1 cap QDAY JUAQUIN Administration Ondansetron HCl 4 mg 03/06/19 02:49 Zofran IV Q8H PRN Nausea And Vomiting Oxycodone/Acetaminophen 1 tab 02/25/19 18:39 03/08/19 18:23 Percocet 5/325 PO 1 tab Q6H PRN Administration Pain, Moderate (4-6) Pantoprazole Sodium 40 mg 03/07/19 08:00 03/10/19 09:02 Protonix PO 40 mg QDAY [facility] Administration Polyethylene Glycol 17 gm 03/06/19 22:22 Miralax 3350 PO QDAY PRN Constipation Pravastatin Sodium 40 mg 02/25/19 21:00 03/09/19 22:41 Pravachol PO 40 mg QHS JUAQUIN Administration Pregabalin 75 mg 02/25/19 22:00 03/10/19 00:52 Lyrica PO Not Given [facility] Simethicone 80 mg 02/28/19 10:11 02/28/19 11:25 Mylicon PO 80 mg Q6H PRN Administration Gas pain Nutrition/Malnutrition Assess - Dietary Evaluation Nutrition/Malnutrition Findings: Nutrition Notes Start: 03/04/19 17:30 Freq: Status: Active Protocol: Document 03/04/19 17:30 RM (Rec: 03/04/19 17:31 RM [id number]) Nutrition Notes Need for Assessment generated from: LOS Initial or Follow up Brief Note Height 4 ft 11 in Weight 67.8 kg [place] Body Weight (kg) 43.18 BMI 30.2 Subjective/Other Information Screened for LOS. Recorded PO intake 81% X 4 meals. Nutrition Intervention Revisit per MD consult or patient Sign Off request:
[2019-03-10] MEDS: PROCRIT IV SCH (19:24)
[2019-03-10] MEDS: PRAVACHOL PO SCH (22:43)
[2019-03-10] MEDS: ZETIA PO SCH (22:43)
[2019-03-10] MEDS: VANCOMYCIN 750 MG in NACL 0.9% 250ML 250 ML IV SCH (22:44)
[2019-03-11] MEDS: HumaLOG SUB-Q SCH ×6 (05:10→23:39)
[2019-03-11] MEDS: SYNTHROID PO SCH (05:10)
[2019-03-11] MEDS: HEPARIN SUB-Q SCH ×3 (05:12→22:43)
[2019-03-11] MEDS: PHOSLO PO SCH ×3 (08:35→17:35)
--- NOTE | 2019-03-11 09:11 | Progress Note ---
Assessment and Plan 1. ESRD: Continue hemodialysis three times a week, TTS schedule. 2. FEN: Volume overload, improving, UF with HD. Advised to limit fluid intake. Hyperkalemia, improved. 3. Anemia: Epogen with HD. Monitor H/H. 4. PAD: S/p R LE angioplasty and R BKA. 5. GILBERTO: CPAP. 6. DM type 2. 7. HTN: BP well controlled. In Acute rehab unit. Subjective Date of service: 03/11/19 Principal diagnosis: R BKA Interval history: Patient was seen and examined at the bedside. Doing ok. Objective - Vital Signs Vital signs: Vital Signs - 12hr 03/10/19 03/11/19 22:00 07:36 Temperature 98.2 F Pulse Rate 65 Respiratory 20 Rate Respiratory 17 Rate [Left Leg] Blood Pressure 138/51 O2 Sat by Pulse 97 Oximetry - General Appearance General appearance: well-developed, well-nourished, appears stated age, other (no distress) EENT: ATNC, PERRL, mucous membranes moist, hearing diminished Neck: supple Respiratory: Present: Clear to Ascultation Cardiology: regular, S1S2, no murmurs Gastrointestinal: normoactive bowel sounds, no tenderness, no distended Integumentary: no rash, warm and dry Neurologic: no asterixis, disoriented, other (diminished vision) Musculoskeletal: other (trace LE edema noted, R BKA, L arm AVF) Psychiatric: cooperative - Lab 03/10/19 07:48 03/10/19 07:48 Most recent lab results Calcium 9.6 mg/dL (8.4-10.2) 03/10/19 07:48 Medications & Allergies - Medications Allergies/Adverse Reactions: Allergies Iodinated Contrast- Oral and IV Dye Allergy (Verified 11/25/18 15:48) Hives, Rash Penicillins Allergy (Verified 11/25/18 15:48) Hives Home Medications: Home Medications Medication Instructions Recorded Confirmed Last Taken Type B Complex 11/Folic/C/Biot/Zinc 1 each PO DAILY 09/06/15 02/25/19 11/25/18 20:00 History [Dialyvite with Zinc Tablet] Lispro Insulin [HumaLOG] 7 unit SQ AC 11/25/18 02/25/19 Unknown History Pantoprazole Sodium 40 mg PO DAILY 11/25/18 02/25/1919 05:00 History amLODIPine [Norvasc] 5 mg PO DAILY 11/25/18 02/25/19 11/28/18 History 2.5 Ranitidine HCl [Zantac] 300 mg PO BID 02/16/19 02/25/19 Unknown History Calcium Acetate 667 mg PO AC 02/18/19 02/25/19 Unknown History Levothyroxine 0.05 mg PO QDAY 02/18/19 02/25/19 Unknown History Lyrica 75 mg PO HS 02/18/19 02/25/19 Unknown History Pravastatin 40 mg PO HS 02/18/19 02/25/19 Unknown History Zetia 10 mg PO HS 02/18/19 02/25/19 Unknown History Aspirin EC 81 mg PO QDAY #30 tablet 02/25/19 02/25/19 Unknown Rx Clopidogrel [Plavix] 75 mg PO QDAY #30 tablet 02/25/19 02/25/19 Unknown Rx oxyCODONE /ACETAMINOPHEN [Percocet 1 tab PO Q6H PRN #14 tablet 02/25/19 02/25/19 Unknown Rx 5/325 mg] Active Medications: Generic Name Dose Route Start Last Admin Trade Name Freq PRN Reason Stop Dose Admin Albuterol 2.5 mg 02/25/19 18:39 03/07/19 07:24 Proventil IH 2.5 mg Q4HRT PRN Administration Shortness Of Breath Amlodipine Besylate 5 mg 02/26/19 08:00 03/10/19 09:01 Norvasc PO 5 mg QDAY JUAQUIN Administration Aspirin 81 mg 02/26/19 08:00 03/10/19 09:01 Halfprin Ec PO 81 mg QDAY JUAQUIN Administration Bisacodyl 10 mg 03/07/19 15:19 Dulcolax [place] QDAY PRN Constipation Calcium Acetate 667 mg 02/26/19 07:30 03/10/19 18:13 Phoslo PO Not Given AC [facility] Clopidogrel Bisulfate 75 mg 02/26/19 08:00 03/10/19 09:01 Plavix PO 75 mg QDAY JUAQUIN Administration Dextrose 50 ml 03/03/19 16:04 03/09/19 07:48 D50w (25gm) Syringe IV 50 ml PRN PRN Administration Hypoglycemia Diphenhydramine HCl 25 mg 02/25/19 18:39 07/07/19 18:23 Benadryl PO 25 mg Q6H PRN Administration Itching Docusate Sodium 100 mg 03/06/19 23:00 03/10/19 22:44 Colace PO 100 mg BID JUAQUIN Administration Ezetimibe 10 mg 02/25/19 22:00 03/10/19 22:43 Zetia PO 10 mg HS JUAQUIN Administration Epoetin [place] 10,000 unit 02/26/19 13:00 03/10/19 19:24 Procrit IV 10,000 unit ANNI JUAQUIN Administration Heparin Sodium (Porcine) 5,000 unit 02/25/19 22:00 03/11/19 05:12 Heparin SUB-Q 5,000 unit Q8HR JUAQUIN Administration Sodium Chloride 100 mls @ 999 mls/hr 03/09/19 17:42 Nacl 0.9% IV ANNI PRN Hypotension Vancomycin HCl 500 mg/ Sodium 110 mls @ 66.667 mls/hr 03/12/19 22:00 Chloride IV 03/19/19 23:59 TuThSa [facility] Insulin Human Lispro 0 unit 03/09/19 15:00 03/11/19 05:10 Humalog SUB-Q 6 unit Q4H JUAQUIN Administration Protocol Levothyroxine Sodium 50 mcg 02/26/19 06:00 03/11/19 05:10 Synthroid PO 50 mcg DAILY@0600 [facility] Administration Multivit/Ca Carb/B Cmplx/FA/Prenat 1 cap 02/27/19 08:00 03/10/19 09:01 Renal Caps PO 1 cap QDAY [facility] Administration Ondansetron HCl 4 mg 03/06/19 02:49 Zofran IV Q8H PRN Nausea And Vomiting Oxycodone/Acetaminophen 1 tab 02/25/19 18:39 03/08/19 18:23 Percocet 5/325 PO 1 tab Q6H PRN Administration Pain, Moderate (4-6) Pantoprazole Sodium 40 mg 03/07/19 08:00 03/10/19 09:02 Protonix PO 40 mg QDAY JUAQUIN Administration Polyethylene Glycol 17 gm 03/06/19 22:22 Miralax 3350 PO QDAY PRN Constipation Pravastatin Sodium 40 mg 02/25/19 21:00 03/10/19 22:43 Pravachol PO 40 mg QHS JUAQUIN Administration Pregabalin 75 mg 02/25/19 22:00 03/10/19 22:44 Lyrica PO 75 mg HS JUAQUIN Administration Simethicone 80 mg 02/28/19 10:11 02/28/19 11:25 Mylicon PO 80 mg Q6H PRN Administration Gas pain
[2019-03-11] MEDS: NORVASC PO SCH (10:33)
[2019-03-11] MEDS: Renal Caps PO SCH (10:33)
[2019-03-11] MEDS: COLACE PO SCH ×2 (10:33→22:43)
[2019-03-11] MEDS: PROTONIX PO SCH (10:33)
[2019-03-11] MEDS: HALFPRIN EC PO SCH (10:33)
[2019-03-11] MEDS: PLAVIX PO SCH (10:33)
--- NOTE | 2019-03-11 14:26 | Progress Note ---
Subjective Date of service: 03/11/19 Principal diagnosis: R BKA Interval history: 78-year-old female with right foot pain presented to ER and found to have sepsis. Amputation was previously discussed for the right lower extremity gangrene however family refused. Patient had been undergoing treatment HBOT without resolution. ID was consulted and started antibiotics. Vascular surgery performed angiography. Afterwards she was scheduled for a right BKA which proceeded without incident. After the patient was medically stabilized they were transferred for further rehabilitation. All available medical records have been reviewed. Plan of care was discussed with patient and family. Patient is participating in therapy and making reasonable progress. Taking rest breaks as needed. +BM. GLU is improving, Appreciate hospitalist assistance. Monitor. Breathing improved with supplemental O2. Patient states HD is removing more fluid. Hgb improving on procrit - appreciate Dr Lopez's assistance. Dyspnea on exertion, better with O2. This may be her baseline at home given she was not very active. Some phantom sensation but no overt phantom pain. Standing with therapy and assistance for short period, SBT improving. Continue therapy as planned. No signs of infection in RLE. Continues vanc on dialysis days. All records, vitals, labs and medications were reviewed. No other issues per patient, nursing or therapy. Objective - Exam Narrative Exam: MUSCULOSKELETAL SPECIALTY EXAM CONSTITUTIONAL: Well developed, well nourished, appropriately groomed EENT: Legally blind. Oropharynx clear. RESPIRATORY: Clear to auscultation bilaterally, no increased work of breathing, no crackles. Supplemental O2 CARDIOVASCULAR: Regular Rate/ Rhythm, no swelling, edema or tenderness in BUE or BLE. Pulses palpable in all extremities. All extremities warm. Thrill in LUE GI: + bowel sounds, soft, nondistended. INTEGUMENTARY: LLE with decrease in edema. Otherwise, normal, no lesion, rash, masses or bruising noted in extremities. Surgical wound on right lower extremity is healing well, mike have been removed. MUSCULOSKELETAL: Right BKA, otherwise BUE and BLE normal without defect, crepitus, subluxation, effusion, arthritic changes or TTP. BUE 4/5, good ROM, with normal tone. LLE 4-/5 good ROM, with normal tone, RLE decreased ROM secondary to pain NEURO: CN 2-12 grossly intact. Sensation intact in all extremities. No tremor noted in 4 extremities. POSTURE and GAIT: Sitting posture good. Balance appears reasonable. Gait deferred, based on standing performance she may not be able to ambulate with just a walker without prosthesis. PSYCH: Alert, orientated x2, slightly confused at times and decreased memory, affect appears normal. - Constitutional Vitals: Vital Signs - 12hr 03/11/19 03/11/19 03/11/19 07:36 10:10 12:10 Temperature 36.8 C 36.6 C Pulse Rate 65 71 Respiratory 20 18 Rate Blood Pressure 138/51 131/51 O2 Sat by Pulse 97 98 99 Oximetry - Allied health notes Allied health notes reviewed: nursing, PT, ST, OT FIMS assessment as documented by PT/OT/ST: Grooming Patient cleans teeth/dentures: Yes Patient holguin/brushes hair: Yes Patient washes, rinses and Yes dries face: Patient washes, rinses and Yes dries hands: Patient shaves: No Patient applies make-up: No Patient performs (no make-up/ 12/04 (100%) shaving): Grooming FIM Score 4. Minimal Assistance (Patient = 75% or more. Needs touching.) Toileting Toileting Device Bedpan Toileting FIM Score 2. Maximal Assistance (Patient = 25% or more) Social interaction/Memory/Problem solving Social Interaction FIM Score 7. Complete [place] (Interacts appropriately. Controls temper.) Memory FIM Score 5. Supervision (Needs cueing <10%, stressful/ unfamiliar situations.) Problem Solving FIM Score 4. Minimal Assistance (Solves routine problems 75-90%.) Transfers Mode of Locomotion: Wheelchair Bed/Chair/Wheelchair Transfers 3. Moderate Assistance (Patient = 50% or more. FIM Score Some lifting.) Toilet Transfers FIM Score 1. Total Assistance (Patient less than 25%. 2 or more persons.) Patient transferred to: Shower Shower Transfers FIM Score 1. Total Assistance (Patient less than 25%. 2 or more persons.) Locomotion- Stairs Stairs FIM Score 0. Activity does not occur Locomotion- walk/wheelchair Most Frequent Mode of Wheelchair Locomotion: Ambulation Distance 0 Walking FIM Score 0. Activity does not occur Wheelchair Propulsion Distance 200 Wheelchair FIM Score 5. Supervision (Minimum 150 ft. supv./cues or 50 ft. independently.) Eating Eating FIM Score 7. Complete [place] (Cuts meat, opens containers, regular diet.) Dressing-Upper body Patient retrieves clothing No items: Patient applies/removes UE No: n/a prosthesis or orthosis: Upper Body Dressing FIM Score 4. Minimal Assistance (Patient = 75% or more. Needs touching.) Dressing-lower body Patient retrieves clothing No items: Patient applies/removes LE No: n/a prosthesis or orthosis: Lower Body Dressing FIM Score 2. Maximal Assistance (Patient = 25% or more) - Labs CBC & Chem 7: 03/10/19 07:48 03/10/19 07:48 Labs: Laboratory Results - last 72 hr 03/08/19 03/08/19 03/09/19 16:34 21:07 07:23 WBC RBC Hgb Hct MCV MCH MCHC RDW Plt Count Sodium Potassium Chloride Carbon Dioxide Anion Gap BUN Creatinine Estimated GFR BUN/Creatinine Ratio Glucose POC Glucose 262 H 80 < 40 L Calcium Random Vancomycin 03/09/19 03/09/19 03/09/19 07:40 07:48 11:39 WBC RBC Hgb Hct MCV MCH MCHC RDW Plt Count Sodium Potassium Chloride Carbon Dioxide Anion Gap BUN Creatinine Estimated GFR BUN/Creatinine Ratio Glucose POC Glucose < 40 L 218 H 277 H Calcium Random Vancomycin 03/09/19 03/09/19 03/09/19 16:21 16:21 16:41 WBC 7.2 RBC 3.07 L Hgb 7.5 L Hct 24.1 L MCV 78 L MCH 25 L MCHC 31 RDW 22.5 H Plt Count 313 Sodium 130 L Potassium 4.7 Chloride 90.6 L Carbon Dioxide 25 Anion Gap 19 BUN 28 H Creatinine 4.8 H Estimated GFR 11 BUN/Creatinine Ratio 6 Glucose 329 H POC Glucose 331 H Calcium 9.1 Random Vancomycin 03/09/19 03/10/19 03/10/19 22:11 03:12 07:48 WBC 7.3 RBC 3.21 L Hgb 7.7 L Hct 24.6 L MCV 77 L MCH 24 L MCHC 31 RDW 22.4 H Plt Count 283 Sodium Potassium Chloride Carbon Dioxide Anion Gap BUN Creatinine Estimated GFR BUN/Creatinine Ratio Glucose POC Glucose 434 H 226 H Calcium Random Vancomycin 03/10/19 03/10/19 03/10/19 07:48 07:48 07:57 WBC RBC Hgb Hct MCV MCH MCHC RDW Plt Count Sodium 136 L Potassium 4.8 Chloride 93.6 L Carbon Dioxide 27 Anion Gap 20 BUN 32 H Creatinine 5.6 H Estimated GFR 9 BUN/Creatinine Ratio 6 Glucose 115 H POC Glucose 125 H Calcium 9.6 Random Vancomycin 30.9 03/10/19 03/10/19 03/10/19 12:19 16:35 21:20 WBC RBC Hgb Hct MCV MCH MCHC RDW Plt Count Sodium Potassium Chloride Carbon Dioxide Anion Gap BUN Creatinine Estimated GFR BUN/Creatinine Ratio Glucose POC Glucose 222 H 189 H 209 H Calcium Random Vancomycin 03/11/19 03/11/19 03/11/19 04:43 07:44 11:44 WBC RBC Hgb Hct MCV MCH MCHC RDW Plt Count Sodium Potassium Chloride Carbon Dioxide Anion Gap BUN Creatinine Estimated GFR BUN/Creatinine Ratio Glucose POC Glucose 441 H 209 H 221 H Calcium Random Vancomycin Assessment and Plan R BKA: Will likely be a K1 ambulator, K2 not likely in reach at this point. After speaking with daughter, patient will most likely remain K1. Monitor wound. On isolation for MRSA in Blood with 4 weeks vancomycin during dialysis (03/19/2019 per ID notes). Continue to work on transfers and mobility. Monitor for phantom sensation/pain. Discussed prosthesis. Last blood culture was negative and patient remains on antibiotics with no excessive drainage from the wound. GILBERTO: Cont CPAP HTN: Monitor BP and adjust meds for normotension DM: Carb controlled diet. Monitor glucose. SSI. 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 R26.2 Difficulty walking: PT will work on gait training and proper use of assistive devices and advance as appropriate to use of stairs and outside ambulation on uneven surfaces. R26.81 Unsteadiness on feet: PT will work on improving static and dynamic sitting and standing balance as well as proper use of assistive devices to decrease risk of falls. R26.89 Abnormality of gait: PT will work to improve safety and efficiency of gait through neuromotor training and gait training along with instruction on proper use of assistive devices. M62.81 Muscle weakness: PT & OT will work on strengthening exercises to improve functional strength including mixture of closed and open kinetic chain exercises. R53.81 Debility: PT & OT will work on improving overall functional status to improve participation with ADLs, mobility and social involvement. R53.83 Fatigue: PT & OT will work on improving endurance through aerobic exercises and therapeutic activity while monitoring patients tolerance for activity and vital signs as needed. Dyspnea - Supplemental O2 at night and whenever she is in therapy. Monitor fr equently for s/s of dyspnea decreased O2 sats DVT ppx: heparin Pain: Continue physical modalities in therapy and pain medications as needed to achieve functional pain control. Sleep: Monitor and address as needed. Bowel: Monitor and address as needed. Appetite: Monitor and address as needed. Discharge planning: Plan to d/c Saturday 03/17. Will continue discussion with therapy team, SW, patient and family. Restrictions/ Precautions: Falls WB status: FWB Functional Hx: ADLs: Independent Cognition: Needed assistance Mobility: Cane and w/c for distance Barriers to Discharge: Decreased mobility and ability to perform self care, balance deficits, weakness, cognition Estimated Length of Stay: 14-18 days Discharge Destination: Home with family with supervision
--- NOTE | 2019-03-11 14:46 | Progress Note ---
Assessment and Plan Assessment and plan: Hospitalist oracle ebs consultant for DM in the Inpatient Rehab unit of [facility] Patient is a 78-year-old woman with a history of PVD, DM type 2, ESRD on hemodialysis, GERD, CVA, heart failure, hypertension, hypothyroidism, legally blind and GILBERTO who presented to [facility] inpatient rehab unit following right leg BKA. Hospitalist consulted and following for uncontrolled DM. 03/09/19 Blood glucose is very labile because patient has Brittle Diabetes Mellitus. Long acting insulin cause chief credit officer hypoglycemia; nonetheless, her blood sugars are very high during mealtime, so I will add fast acting insulin with meals and increase SSI to high dose protocol. Will continue to monitor CODE MET called, AMS/somnolent due to BG 27. Dextrose was to be given then she lost IV access, so I ordered Glucagon IM; however, she was waking up and drank OJ then IV re-established and she was given Dextrose IV and 1mg IM Glucagon. Her blood glucose feliz rocketed to 218 and she was A/o x 3. campaign manager hypoglycemia, suspect Somogyi effect: discontinued long acting insulin and cover with SSI for now. Acute Metabolic Encephalopathy secondary to Hypoglycemia;Resolved Patient with very labile Blood glucose. She is not sure how much insulin she gets at home but states they use sliding scale. She will benefit from oral hypoglycemia agents as outpatient but i wonder if she has had bouts of hypoglycemia in the past. DM Type 2 with hyperglycemia, a1c 6.8: continue SSI monitor SOB with perihilar edema on 03/05/19 CXR: treated with HD and repeat CXR, shows improvement GILBERTO ON CPAP: Stable GERD: Famotidine ESRD: HD tts, Nephrology following Right foot gangrene with severe PVD s/p BKA: Continue rehab, PT, OT HTN, controlled: low salt diet and treat with antihypertensives HX OF CVA: continue plavix, continue statin, ZETIA Hyperlipidemia: statin Hypothyrodisim: CONTINUE SYNTHROID Anemia: Monitor, on epogen DVT/GI prophylaxis History Interval history: Patient seen and examined, resting comfortable. She is currently at rehabilitation station participates in activities and rehabilitation. Hospitalist Physical - Physical exam Narrative exam: Gen: WDWN, NAD, Awake, Alert, Orientated HEENT: NCAT, EOMI, PERRL, OP Clear Neck: supple, no adenopathy, no thyromegaly, no JVD CVS/Heart: RRR, normal S1S2, pulses present bilaterally Chest/Lungs: CTA B, Symmetrical chest expansion, good air entry bilaterally GI/Abdomen: soft, NTND, good bowel sounds, no guarding or rebound /Bladder: no suprapubic tenderness, no CVA or paraspinal tenderness Extermity/Skin: no c/c/e,, excoriated skin rashes noted crusted over. MSK: FROM x 3, with right leg BKA and mike still in place, wound looks ok, Neuro: CN 2-12 grossly intact, no new focal deficits Psych: calm - Constitutional Vitals: Temp Pulse Resp BP Pulse Ox 97.9 F 71 18 131/51 99 03/11/19 12:10 03/11/19 12:10 03/11/19 12:10 03/11/19 12:10 03/11/19 12:10 General appearance: Present: no acute distress, well-nourished Results - Labs CBC & Chem 7: 03/10/19 07:48 03/10/19 07:48 Labs: Laboratory Last Values WBC 7.3 K/mm3 (4.5-11.0) 03/10/19 07:48 RBC 3.21 M/mm3 (3.65-5.03) L 03/10/19 07:48 Hgb 7.7 gm/dl (10.1-14.3) L 03/10/19 07:48 Hct 24.6 % (30.3-42.9) L 03/10/19 07:48 MCV 77 fl (79-97) L 03/10/19 07:48 MCH 24 pg (28-32) L 03/10/19 07:48 MCHC 31 % (30-34) 03/10/19 07:48 RDW 22.4 % (13.2-15.2) H 03/10/19 07:48 Plt Count 283 K/mm3 (140-440) 03/10/19 07:48 Lymph % (Auto) Senior Software Development Manager 02/26/19 11:01 [place] % (Auto) Senior Software Development Manager 02/26/19 11:01 Eos % (Auto) Senior Software Development Manager 02/26/19 11:01 Baso % (Auto) Senior Software Development Manager 02/26/19 11:01 Lymph # Senior Software Development Manager 02/26/19 11:01 [place] # Senior Software Development Manager 02/26/19 11:01 Eos # Senior Software Development Manager 02/26/19 11:01 Baso # Senior Software Development Manager 02/26/19 11:01 Add Manual Diff Complete 02/26/19 11:01 Total Counted 100 02/26/19 11:01 Seg Neutrophils % Senior Software Development Manager 02/26/19 11:01 Seg Neuts % (Manual) 86.0 % (40.0-70.0) H 02/26/19 11:01 0 % 02/26/19 11:01 4.0 % (13.4-35.0) L 02/26/19 11:01 Reactive Lymphs % (Man) 0 % 02/26/19 11:01 9.0 % (0.0-7.3) H 02/26/19 11:01 1.0 % (0.0-4.3) 02/26/19 11:01 0 % (0.0-1.8) 02/26/19 11:01 0 % 02/26/19 11:01 0 % 02/26/19 11:01 0 % 02/26/19 11:01 0 % 02/26/19 11:01 Nucleated RBC % Not Reportable 02/26/19 11:01 Seg Neutrophils # Senior Software Development Manager 02/26/19 11:01 Seg Neutrophils # Man 6.4 K/mm3 (1.8-7.7) 02/26/19 11:01 Band Neutrophils # 0.0 K/mm3 02/26/19 11:01 0.3 K/mm3 (1.2-5.4) L 02/26/19 11:01 Abs React Lymphs (Man) 0.0 K/mm3 02/26/19 11:01 0.7 K/mm3 (0.0-0.8) 02/26/19 11:01 0.1 K/mm3 (0.0-0.4) 02/26/19 11:01 0.0 K/mm3 (0.0-0.1) 02/26/19 11:01 0.0 K/mm3 02/26/19 11:01 0.0 K/mm3 02/26/19 11:01 0.0 K/mm3 02/26/19 11:01 Blast Cells # 0.0 K/mm3 02/26/19 11:01 WBC Morphology Not Reportable 02/26/19 11:01 Hypersegmented Neuts Not Reportable 02/26/19 11:01 Hyposegmented Neuts Not Reportable 02/26/19 11:01 Hypogranular Neuts Not Reportable 02/26/19 11:01 Not Reportable 02/26/19 11:01 Not Reportable 02/26/19 11:01 Not Reportable 02/26/19 11:01 Not Reportable 02/26/19 11:01 Not Reportable 02/26/19 11:01 Not Reportable 02/26/19 11:01 Consistent w auto 02/26/19 11:01 Not Reportable 02/26/19 11:01 Plt Clumps, EDTA Not Reportable 02/26/19 11:01 Not Reportable 02/26/19 11:01 Not Reportable 02/26/19 11:01 Not Reportable 02/26/19 11:01 Plt Morphology Comment Not Reportable 02/26/19 11:01 RBC Morphology Not Reportable 02/26/19 11:01 Dimorphic RBCs Not Reportable 02/26/19 11:01 Few 02/26/19 11:01 1+ 02/26/19 11:01 Not Reportable 02/26/19 11:01 1+ 02/26/19 11:01 Not Reportable 02/26/19 11:01 Not Reportable 02/26/19 11:01 Not Reportable 02/26/19 11:01 Not Reportable 02/26/19 11:01 Not Reportable 02/26/19 11:01 Few 02/26/19 11:01 Not Reportable 02/26/19 11:01 Few 02/26/19 11:01 Not Reportable 02/26/19 11:01 Not Reportable 02/26/19 11:01 Not Reportable 02/26/19 11:01 Not Reportable 02/26/19 11:01 Not Reportable 02/26/19 11:01 Not Reportable 02/26/19 11:01 Not Reportable 02/26/19 11:01 Acanthocytes (Spur) Not Reportable 02/26/19 11:01 Rouleaux Not Reportable 02/26/19 11:01 Not Reportable 02/26/19 11:01 Not Reportable 02/26/19 11:01 Not Reportable 02/26/19 11:01 Not Reportable 02/26/19 11:01 Hem Pathologist Commnt No 02/26/19 11:01 Sodium 136 mmol/L (137-145) L 03/10/19 07:48 Potassium 4.8 mmol/L (3.6-5.0) 03/10/19 07:48 Chloride 93.6 mmol/L (98-107) L 03/10/19 07:48 Carbon Dioxide 27 mmol/L (22-30) 03/10/19 07:48 20 mmol/L 03/10/19 07:48 BUN 32 mg/dL (7-17) H 03/10/19 07:48 5.6 mg/dL (0.7-1.2) H 03/10/19 07:48 Estimated GFR 9 ml/min 03/10/19 07:48 6 % 03/10/19 07:48 Glucose 115 mg/dL (65-100) H 03/10/19 07:48 POC Glucose 221 (70-105) H 03/11/19 11:44 6.8 % (4-6) H 03/08/19 05:03 Calcium 9.6 mg/dL (8.4-10.2) 03/10/19 07:48 0.40 mg/dL (0.1-1.2) 02/26/19 11:01 AST 32 units/L (5-40) 02/26/19 11:01 ALT 17 units/L (7-56) 02/26/19 11:01 382 units/L (35-129) H 02/26/19 11:01 5.7 g/dL (6.3-8.2) L 02/26/19 11:01 2.6 g/dL (3.9-5) L 02/26/19 11:01 0.8 % 02/26/19 11:01 Random Vancomycin 30.9 ug/mL (0-40.0) 03/10/19 07:48 Hepatitis A IgM Ab Non-reactive (NonReactive) 02/28/19 10:48 Hep Bs Antigen Non-reactive (Negative) 02/28/19 10:48 Hep B Core IgM Ab Non-reactive (NonReactive) 02/28/19 10:48 Non-reactive (NonReactive) 02/28/19 10:48 Active Medications - Current Medications Current Medications: Generic Name Dose Route Start Last Admin Trade Name Freq PRN Reason Stop Dose Admin Albuterol 2.5 mg 02/25/19 18:39 03/07/19 07:24 Proventil IH 2.5 mg Q4HRT PRN Administration Shortness Of Breath Amlodipine Besylate 5 mg 02/26/19 08:00 03/11/19 10:33 Norvasc PO 5 mg QDAY JUAQUIN Administration Aspirin 81 mg 02/26/19 08:00 03/11/19 10:33 Halfprin Ec PO 81 mg QDAY JUAQUIN Administration Bisacodyl 10 mg 03/07/19 15:19 Dulcolax VT QDAY PRN Constipation Calcium Acetate 667 mg 02/26/19 07:30 03/11/19 08:35 Phoslo PO 667 mg AC JUAQUIN Administration Clopidogrel Bisulfate 75 mg 02/26/19 08:00 03/11/19 10:33 Plavix PO 75 mg QDAY JUAQUIN Administration Dextrose 50 ml 03/03/19 16:04 03/09/19 07:48 D50w (25gm) Syringe IV 50 ml PRN PRN Administration Hypoglycemia Diphenhydramine HCl 25 mg 02/25/19 18:39 03/08/19 18:23 Benadryl PO 25 mg Q6H PRN Administration Itching Docusate Sodium 100 mg 03/06/19 23:00 03/11/19 10:33 Colace PO 100 mg BID JUAQUIN Administration Ezetimibe 10 mg 02/25/19 22:00 03/10/19 22:43 Zetia PO 10 mg HS JUAQUIN Administration Epoetin [place] 10,000 unit 02/26/19 13:00 03/10/19 19:24 Procrit IV 10,000 unit ANNI JUAQUIN Administration Heparin Sodium (Porcine) 5,000 unit 02/25/19 22:00 03/11/19 05:12 Heparin SUB-Q 5,000 unit Q8HR JUAQUIN Administration Sodium Chloride 100 mls @ 999 mls/hr 03/09/19 17:42 Nacl 0.9% IV ANNI PRN Hypotension Vancomycin HCl 500 mg/ Sodium 110 mls @ 66.667 mls/hr 03/12/19 22:00 Chloride IV 03/19/19 23:59 TuThSa [facility] Insulin Human Lispro 0 unit 03/09/19 15:00 03/11/19 08:39 Humalog SUB-Q 3 unit Q4H JUAQUIN Administration Protocol Levothyroxine Sodium 50 mcg 02/26/19 06:00 03/11/19 05:10 Synthroid PO 50 mcg DAILY@0600 JUAQUIN Administration Multivit/Ca Carb/B Cmplx/FA/Prenat 1 cap 02/27/19 08:00 03/11/19 10:33 Renal Caps PO 1 cap QDAY JUAQUIN Administration Ondansetron HCl 4 mg 03/06/19 02:49 Zofran IV Q8H PRN Nausea And Vomiting Oxycodone/Acetaminophen 1 tab 02/25/19 18:39 03/08/19 18:23 Percocet 5/325 PO 1 tab Q6H PRN Administration Pain, Moderate (4-6) Pantoprazole Sodium 40 mg 03/07/19 08:00 03/11/19 10:33 Protonix PO 40 mg QDAY JUAQUIN Administration Polyethylene Glycol 17 gm 03/06/19 22:22 Miralax 3350 PO QDAY PRN Constipation Pravastatin Sodium 40 mg 02/25/19 21:00 03/10/19 22:43 Pravachol PO 40 mg QHS JUAQUIN Administration Pregabalin 75 mg 02/25/19 22:00 03/10/19 22:44 Lyrica PO 75 mg HS JUAQUIN Administration Simethicone 80 mg 02/28/19 10:11 02/28/19 11:25 Mylicon PO 80 mg Q6H PRN Administration Gas pain Nutrition/Malnutrition Assess - Dietary Evaluation Nutrition/Malnutrition Findings: Nutrition Notes Start: 03/04/19 17:30 Freq: Status: Active Protocol: Document 03/04/19 17:30 RM (Rec: 03/04/19 17:31 RM [id number]) Nutrition Notes Need for Assessment generated from: LOS Initial or Follow up Brief Note Height 4 ft 11 in Weight 67.8 kg [place] Body Weight (kg) 43.18 BMI 30.2 Subjective/Other Information Screened for LOS. Recorded PO intake 81% X 4 meals. Nutrition Intervention Revisit per MD consult or patient Sign Off request: - Attestation Statement I have reviewed and agreed w/ Malnutrition eval & tx plan: Yes
[2019-03-11] MEDS: ZETIA PO SCH (22:42)
[2019-03-11] MEDS: PRAVACHOL PO SCH (22:43)
[2019-03-11] MEDS: LYRICA PO SCH (22:43)
[2019-03-12] MEDS: HumaLOG SUB-Q SCH ×5 (05:39→21:57)
[2019-03-12] MEDS: SYNTHROID PO SCH (05:41)
[2019-03-12] MEDS: HEPARIN SUB-Q SCH ×3 (05:41→21:46)
[2019-03-12] MEDS: COLACE PO SCH (08:42)
[2019-03-12] MEDS: Renal Caps PO SCH (08:42)
[2019-03-12] MEDS: PROTONIX PO SCH (08:42)
[2019-03-12] MEDS: PLAVIX PO SCH (08:42)
[2019-03-12] MEDS: HALFPRIN EC PO SCH (08:42)
[2019-03-12] MEDS: NORVASC PO SCH (08:43)
[2019-03-12] MEDS: PHOSLO PO SCH ×3 (09:28→18:26)
--- NOTE | 2019-03-12 09:39 | Progress Note ---
Subjective Date of service: 03/12/19 Principal diagnosis: R BKA Interval history: 78-year-old female with right foot pain presented to ER and found to have sepsis. Amputation was previously discussed for the right lower extremity gangrene however family refused. Patient had been undergoing treatment HBOT without resolution. ID was consulted and started antibiotics. Vascular surgery performed angiography. Afterwards she was scheduled for a right BKA which proceeded without incident. After the patient was medically stabilized they were transferred for further rehabilitation. All available medical records have been reviewed. Plan of care was discussed with patient and family. Patient is participating in therapy and making reasonable progress. Taking rest breaks as needed. -BM today, monitor. Would like something other than colace. GLU is improving, Appreciate hospitalist assistance. Monitor. Dyspnea on exertion, better with O2. This may be her baseline at home given she was not very active. Breathing improved with supplemental O2, signs of pulm issues otherwise Some phantom sensation but no overt phantom pain. Standing with therapy and assistance for short period, SBT improving. Continue therapy as planned. No signs of infection in RLE. Continues vanc on dialysis days. All records, vitals, labs and medications were reviewed. No other issues per patient, nursing or therapy. Objective - Exam Narrative Exam: MUSCULOSKELETAL SPECIALTY EXAM CONSTITUTIONAL: Well developed, well nourished, appropriately groomed EENT: Legally blind. Oropharynx clear. RESPIRATORY: Clear to auscultation bilaterally, no increased work of breathing, no crackles. Supplemental O2 CARDIOVASCULAR: Slight 1+edema in LLE, otherwise Regular Rate/ Rhythm, no swelling, edema or tenderness in BUE or BLE. All extremities warm. Thrill in LUE GI: + bowel sounds, soft, nondistended. INTEGUMENTARY: normal, no lesion, rash, masses or bruising noted in extremities. Surgical wound on right lower extremity is healing well, mike have been removed. MUSCULOSKELETAL: Right BKA, otherwise BUE and BLE normal without defect, crepitus, subluxation, effusion, arthritic changes or TTP. BUE 4/5, good ROM, with normal tone. LLE 4-/5 good ROM, with normal tone, RLE decreased ROM secondary to pain NEURO: CN 2-12 grossly intact. Sensation intact in all extremities. No tremor noted in 4 extremities. POSTURE and GAIT: Sitting posture good. Balance appears reasonable. Gait deferred, based on standing performance she may not be able to ambulate with just a walker without prosthesis. PSYCH: Alert, orientated x2, slightly confused at times and decreased memory, affect appears normal. - Constitutional Vitals: Vital Signs - 12hr 03/11/19 03/12/19 03/12/19 23:22 04:30 07:31 Temperature 36.4 C 36.3 C L 36.4 C Pulse Rate 72 66 64 Respiratory 17 17 18 Rate Blood Pressure 145/60 124/55 136/62 O2 Sat by Pulse 94 94 100 Oximetry - Allied health notes Allied health notes reviewed: nursing, PT, ST, OT FIMS assessment as documented by PT/OT/ST: Grooming Patient cleans teeth/dentures: Yes Patient holguin/brushes hair: Yes Patient washes, rinses and Yes dries face: Patient washes, rinses and Yes dries hands: Patient shaves: No Patient applies make-up: No Patient performs (no make-up/ /4 (100%) shaving): Grooming FIM Score 4. Minimal Assistance (Patient = 75% or more. Needs touching.) Toileting Toileting Device Bedpan Toileting FIM Score 2. Maximal Assistance (Patient = 25% or more) Social interaction/Memory/Problem solving Social Interaction FIM Score 5. Supervision (Needs supv. <10%. Needs encouragement to participate.) Memory FIM Score 5. Supervision (Needs cueing <10%, stressful/ unfamiliar situations.) Problem Solving FIM Score 4. Minimal Assistance (Solves routine problems 75-90%.) Transfers Mode of Locomotion: Wheelchair Bed/Chair/Wheelchair Transfers 5. Supervision (Needs supv. or set-up for FIM Score sliding board, foot rests.) Toilet Transfers FIM Score 1. Total Assistance (Patient less than 25%. 2 or more persons.) Patient transferred to: Shower Shower Transfers FIM Score 1. Total Assistance (Patient less than 25%. 2 or more persons.) Locomotion- Stairs Stairs FIM Score 0. Activity does not occur Locomotion- walk/wheelchair Most Frequent Mode of Wheelchair Locomotion: Ambulation Distance 0 Walking FIM Score 0. Activity does not occur Wheelchair Propulsion Distance 200 Wheelchair FIM Score 5. Supervision (Minimum 150 ft. supv./cues or 50 ft. independently.) Eating Eating FIM Score 5. Supervision/Set-Up (Needs help w/ containers, cutting meat, etc.) Dressing-Upper body Patient retrieves clothing No items: Patient applies/removes UE No: n/a prosthesis or orthosis: Upper Body Dressing FIM Score 5. Supv./Set-Up (Friendly sets out clothes or applies pros./orth.) Dressing-lower body Patient retrieves clothing No items: Patient applies/removes LE No: n/a prosthesis or orthosis: Lower Body Dressing FIM Score 2. Maximal Assistance (Patient = 25% or more) - Labs CBC & Chem 7: 03/10/19 07:48 03/10/19 07:48 Labs: Laboratory Results - last 72 hr 03/09/19 03/09/19 03/09/19 07:48 11:39 16:21 WBC 7.2 RBC 3.07 L Hgb 7.5 L Hct 24.1 L MCV 78 L MCH 25 L MCHC 31 RDW 22.5 H Plt Count 313 Sodium Potassium Chloride Carbon Dioxide Anion Gap BUN Creatinine Estimated GFR BUN/Creatinine Ratio Glucose POC Glucose 218 H 277 H Calcium Random Vancomycin 03/09/19 03/09/19 03/09/19 16:21 16:41 22:11 WBC RBC Hgb Hct MCV MCH MCHC RDW Plt Count Sodium 130 L Potassium 4.7 Chloride 90.6 L Carbon Dioxide 25 Anion Gap 19 BUN 28 H Creatinine 4.8 H Estimated GFR 11 BUN/Creatinine Ratio 6 Glucose 329 H POC Glucose 331 H 434 H Calcium 9.1 Random Vancomycin 03/10/19 03/10/19 03/10/19 03:12 07:48 07:48 WBC 7.3 RBC 3.21 L Hgb 7.7 L Hct 24.6 L MCV 77 L MCH 24 L MCHC 31 RDW 22.4 H Plt Count 283 Sodium 136 L Potassium 4.8 Chloride 93.6 L Carbon Dioxide 27 Anion Gap 20 BUN 32 H Creatinine 5.6 H Estimated GFR 9 BUN/Creatinine Ratio 6 Glucose 115 H POC Glucose 226 H Calcium 9.6 Random Vancomycin 03/10/19 03/10/19 03/10/19 07:48 07:57 12:19 WBC RBC Hgb Hct MCV MCH MCHC RDW Plt Count Sodium Potassium Chloride Carbon Dioxide Anion Gap BUN Creatinine Estimated GFR BUN/Creatinine Ratio Glucose POC Glucose 125 H 222 H Calcium Random Vancomycin 30.9 03/10/19 03/10/1919 16:35 21:20 04:43 WBC RBC Hgb Hct MCV MCH MCHC RDW Plt Count Sodium Potassium Chloride Carbon Dioxide Anion Gap BUN Creatinine Estimated GFR BUN/Creatinine Ratio Glucose POC Glucose 189 H 209 H 441 H Calcium Random Vancomycin 03/11/19 03/11/19 03/11/19 07:44 11:44 16:32 WBC RBC Hgb Hct MCV MCH MCHC RDW Plt Count Sodium Potassium Chloride Carbon Dioxide Anion Gap BUN Creatinine Estimated GFR BUN/Creatinine Ratio Glucose POC Glucose 209 H 221 H 255 H Calcium Random Vancomycin 03/11/19 03/12/19 03/12/19 21:01 00:08 05:45 WBC RBC Hgb Hct MCV MCH MCHC RDW Plt Count Sodium Potassium Chloride Carbon Dioxide Anion Gap BUN Creatinine Estimated GFR BUN/Creatinine Ratio Glucose POC Glucose 307 H 266 H 103 Calcium Random Vancomycin 03/12/19 07:38 WBC RBC Hgb Hct MCV MCH MCHC RDW Plt Count Sodium Potassium Chloride Carbon Dioxide Anion Gap BUN Creatinine Estimated GFR BUN/Creatinine Ratio Glucose POC Glucose 115 H Calcium Random Vancomycin Assessment and Plan R BKA: Will likely be a K1 ambulator, K2 not likely in reach at this point. After speaking with daughter, patient will most likely remain K1. Monitor wound. On isolation for MRSA in Blood with 4 weeks vancomycin during dialysis (03/19/2019 per ID notes). Continue to work on transfers and mobility. Monitor for phantom sensation/pain. Discussed prosthesis. Last blood culture was negative and patient remains on antibiotics with no excessive drainage from the wound. GILBERTO: Cont CPAP HTN: Monitor BP and adjust meds for normotension DM: Carb controlled diet. Monitor glucose. SSI. Insulin adjusted by IM Decreased memory: CONSULTING MANAGER to treat Hypothyroidism: Continue medication Z73.6 ADL dysfunction: OT will work on improving ability to perform ADLs (including assistive devices) to increase independence and decrease caregiver burden and improve functional transfers and mobility training. R26.2 Difficulty walking: PT will work on gait training and proper use of assistive devices and advance as appropriate to use of stairs and outside am bulation on uneven surfaces. R26.81 Unsteadiness on feet: PT will work on improving static and dynamic sitting and standing balance as well as proper use of assistive devices to decrease risk of falls. R26.89 Abnormality of gait: PT will work to improve safety and efficiency of gait through neuromotor training and gait training along with instruction on proper use of assistive devices. M62.81 Muscle weakness: PT & OT will work on strengthening exercises to improve functional strength including mixture of closed and open kinetic chain exercises. R53.81 Debility: PT & OT will work on improving overall functional status to improve participation with ADLs, mobility and social involvement. R53.83 Fatigue: PT & OT will work on improving endurance through aerobic exercises and therapeutic activity while monitoring patients tolerance for activity and vital signs as needed. Dyspnea - Supplemental O2 at night and whenever she is in therapy. Monitor frequently for s/s of dyspnea decreased O2 sats Anemia - recheck CBC, cont procrit per nephrology DVT ppx: heparin Pain: Continue physical modalities in therapy and pain medications as needed to achieve functional pain control. Sleep: Monitor and address as needed. Bowel: Monitor and address as needed. Appetite: Monitor and address as needed. Discharge planning: Plan to d/c Saturday 03/17. Will continue discussion with therapy team, SW, patient and family. Restrictions/ Precautions: Falls WB status: FWB Functional Hx: ADLs: Independent Cognition: Needed assistance Mobility: Cane and w/c for distance Barriers to Discharge: Decreased mobility and ability to perform self care, balance deficits, weakness, cognition Estimated Length of Stay: 14-18 days Discharge Destination: Home with family with supervision
--- NOTE | 2019-03-12 10:21 | Progress Note ---
Assessment and Plan 1. ESRD: Continue hemodialysis three times a week, TTS schedule. 2. FEN: Volume overload, improving, UF with HD. Advised to limit fluid intake. Hyperkalemia, improved. 3. Anemia: Epogen with HD. Monitor H/H. 4. PAD: S/p R LE angioplasty and R BKA. 5. GILBERTO: CPAP. 6. DM type 2. 7. HTN: BP well controlled. In Acute rehab unit. Subjective Date of service: 03/12/19 Principal diagnosis: R BKA Interval history: Patient was seen and examined at the bedside. Doing ok. Objective - Vital Signs Vital signs: Vital Signs - 12hr 03/11/19 03/12/19 03/12/19 23:22 04:30 07:31 Temperature 97.6 F 97.4 F L 97.6 F Pulse Rate 72 66 64 Respiratory 17 17 18 Rate Blood Pressure 145/60 124/55 136/62 O2 Sat by Pulse 94 94 100 Oximetry - General Appearance General appearance: well-developed, well-nourished, appears stated age, other (no distress) EENT: ATNC, PERRL, hearing diminished Neck: supple Respiratory: Present: Rales (bibasal) Cardiology: regular, S1S2, no murmurs Gastrointestinal: normoactive bowel sounds, no tenderness, no distended Integumentary: no rash, warm and dry Neurologic: confused, disoriented, other (diminished vision) Musculoskeletal: other (Trace LE edema, R BKA, L arm AVF) Psychiatric: cooperative - Lab 03/10/19 07:48 03/10/19 07:48 Most recent lab results Calcium 9.6 mg/dL (8.4-10.2) 03/10/19 07:48 Medications & Allergies - Medications Allergies/Adverse Reactions: Allergies Iodinated Contrast- Oral and IV Dye Allergy (Verified 11/25/18 15:48) Hives, Rash Penicillins Allergy (Verified 11/25/18 15:48) Hives Home Medications: Home Medications Medication Instructions Recorded Confirmed Last Taken Type B Complex 11/Folic/C/Biot/Zinc 1 each PO DAILY 09/06/15 02/25/19 11/25/18 20:00 History [Dialyvite with Zinc Tablet] Lispro Insulin [HumaLOG] 7 unit SQ AC 11/25/18 02/25/19 Unknown History Pantoprazole Sodium 40 mg PO DAILY 11/25/18 02/25/19 11/26/18 05:00 History amLODIPine [Norvasc] 5 mg PO DAILY 11/25/18 02/25/19 11/28/18 History 2.5 Ranitidine HCl [Zantac] 300 mg PO BID 02/16/19 02/25/19 Unknown History Calcium Acetate 667 mg PO AC 02/18/19 02/25/19 Unknown History Levothyroxine 0.05 mg PO QDAY 02/18/19 02/25/19 Unknown History Lyrica 75 mg PO HS 02/18/19 02/25/19 Unknown History Pravastatin 40 mg PO HS 02/18/19 02/25/19 Unknown History Zetia 10 mg PO HS 02/18/19 02/25/19 Unknown History Aspirin EC 81 mg PO QDAY #30 tablet 02/25/19 02/25/19 Unknown Rx Clopidogrel [Plavix] 75 mg PO QDAY #30 tablet 02/25/19 02/25/19 Unknown Rx oxyCODONE /ACETAMINOPHEN [Percocet 1 tab PO Q6H PRN #14 tablet 02/25/19 02/25/19 Unknown Rx 5/325 mg] Active Medications: Generic Name Dose Route Start Last Admin Trade Name Freq PRN Reason Stop Dose Admin Albuterol 2.5 mg 02/25/19 18:39 03/07/19 07:24 Proventil IH 2.5 mg Q4HRT PRN Administration Shortness Of Breath Amlodipine Besylate 5 mg 02/26/19 08:00 03/12/19 08:43 Norvasc PO Not Given QDAY JUAQUIN Aspirin 81 mg 02/26/19 08:00 03/12/19 08:42 Halfprin Ec PO 81 mg QDAY JUAQUIN Administration Bisacodyl 10 mg 03/07/19 15:19 Dulcolax DE QDAY PRN Constipation Calcium Acetate 667 mg 02/26/19 07:30 03/12/19 09:28 Phoslo PO 667 mg AC JUAQUIN Administration Clopidogrel Bisulfate 75 mg 02/26/19 08:00 03/12/19 08:42 Plavix PO 75 mg QDAY JUAQUIN Administration Dextrose 50 ml 03/03/19 16:04 03/09/19 07:48 D50w (25gm) Syringe IV 50 ml PRN PRN Administration Hypoglycemia Diphenhydramine HCl 25 mg 02/25/19 18:39 03/08/19 18:23 Benadryl PO 25 mg Q6H PRN Administration Itching Ezetimibe 10 mg 02/25/19 22:00 03/11/19 22:42 Zetia PO 10 mg HS JUAQUIN Administration Epoetin [place] 10,000 unit 02/26/19 13:00 03/10/19 19:24 Procrit IV 10,000 unit ANNI [facility] Administration Heparin Sodium (Porcine) 5,000 unit 02/25/19 22:00 03/12/19 05:41 Heparin SUB-Q 5,000 unit Q8HR JUAQUIN Administration Sodium Chloride 100 mls @ 999 mls/hr 03/09/19 17:42 Nacl 0.9% IV ANNI PRN Hypotension Vancomycin HCl 500 mg/ Sodium 110 mls @ 66.667 mls/hr 03/12/19 22:00 Chloride IV 03/19/19 23:59 TuThSa [facility] Insulin Human Lispro 0 unit 03/09/19 15:00 03/12/19 07:11 Humalog SUB-Q Not Given Q4H [facility] Protocol Levothyroxine Sodium 50 mcg 02/26/19 06:00 03/12/19 05:41 Synthroid PO 50 mcg DAILY@0600 [facility] Administration Multivit/Ca Carb/B Cmplx/FA/Prenat 1 cap 02/27/19 08:00 03/12/19 08:42 Renal Caps PO 1 cap QDAY [facility] Administration Ondansetron HCl 4 mg 03/06/19 02:49 Zofran IV Q8H PRN Nausea And Vomiting Oxycodone/Acetaminophen 1 tab 02/25/19 18:39 03/08/19 18:23 Percocet 5/325 PO 1 tab Q6H PRN Administration Pain, Moderate (4-6) Pantoprazole Sodium 40 mg 03/07/19 08:00 03/12/19 08:42 Protonix PO 40 mg QDAY [facility] Administration Polyethylene Glycol 17 gm 03/13/19 08:00 Miralax 3350 PO QDAY [facility] Pravastatin Sodium 40 mg 02/25/19 21:00 03/11/19 22:43 Pravachol PO 40 mg QHS [facility] Administration Pregabalin 75 mg 02/25/19 22:00 03/11/19 22:43 Lyrica PO 75 mg HS JUAQUIN Administration Simethicone 80 mg 02/28/19 10:11 02/28/19 11:25 Mylicon PO 80 mg Q6H PRN Administration Gas pain
[2019-03-12] MEDS: MIRALAX 3350 PO SCH (12:54)
--- NOTE | 2019-03-12 14:23 | Progress Note ---
Assessment and Plan Assessment and plan: Hospitalist coding consultant for DM in the Inpatient Rehab unit of [facility] Patient is a 78-year-old woman with a history of PVD, DM type 2, ESRD on hemodialysis, GERD, CVA, heart failure, hypertension, hypothyroidism, legally blind and GILBERTO who presented to [facility] inpatient rehab unit following right leg BKA. Hospitalist consulted and following for uncontrolled DM. 03/09/19 Blood glucose is very labile because patient has Brittle Diabetes Mellitus. 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 Will continue to monitor CODE MET called, AMS/somnolent due to BG 27. Dextrose was to be given then she lost IV access, so I ordered Glucagon IM; however, she was waking up and drank OJ then IV re-established and she was given Dextrose IV and 1mg IM Glucagon. Her blood glucose feliz rocketed to 218 and she was A/o x 3. Right foot gangrene with severe PVD s/p BKA: Continue rehab, PT, OT CONTINUE Vancomyin till 03/19 per ID recommendation electrode turner and finisher hypoglycemia, suspect Somogyi effect: discontinued long acting insulin and cover with SSI for now. Acute Metabolic Encephalopathy secondary to Hypoglycemia;Resolved Patient with very labile Blood glucose. She is not sure how much insulin she gets at home but states they use sliding scale. She will benefit from oral hypoglycemia agents as outpatient but i wonder if she has had bouts of hypoglycemia in the past. DM Type 2 with hyperglycemia, a1c 6.8: continue SSI monitor SOB with perihilar edema on 03/05/19 CXR: treated with HD and repeat CXR, shows improvement GILBERTO ON CPAP: Stable GERD: Famotidine ESRD: HD tts, Nephrology following HTN, controlled: low salt diet and treat with antihypertensives HX OF CVA: continue plavix, continue statin, ZETIA Hyperlipidemia: statin Hypothyrodisim: CONTINUE SYNTHROID Anemia: Monitor, on epogen DVT/GI prophylaxis History Interval history: Patient seen and examined, resting comfortable. no change, She is currently at rehabilitation station participates in activities and rehabilitation. Hospitalist Physical - Physical exam Narrative exam: Gen: WDWN, NAD, Awake, Alert, Orientated HEENT: NCAT, EOMI, PERRL, OP Clear Neck: supple, no adenopathy, no thyromegaly, no JVD CVS/Heart: RRR, normal S1S2, pulses present bilaterally Chest/Lungs: CTA B, Symmetrical chest expansion, good air entry bilaterally GI/Abdomen: soft, NTND, good bowel sounds, no guarding or rebound /Bladder: no suprapubic tenderness, no CVA or paraspinal tenderness Extermity/Skin: no c/c/e,, excoriated skin rashes noted crusted over. MSK: FROM x 3, with right leg BKA mike removed, wound looks ok, Neuro: CN 2-12 grossly intact, no new focal deficits Psych: calm - Constitutional Vitals: Temp Pulse Resp BP Pulse Ox 97.8 F 77 18 139/63 98 03/12/19 12:00 03/12/19 12:00 03/12/19 12:00 03/12/19 12:00 03/12/19 12:00 General appearance: Present: no acute distress, well-nourished Results - Labs CBC & Chem 7: 03/10/19 07:48 03/10/19 07:48 Labs: Laboratory Last Values WBC 7.3 K/mm3 (4.5-11.0) 03/10/19 07:48 RBC 3.21 M/mm3 (3.65-5.03) L 03/10/19 07:48 Hgb 7.7 gm/dl (10.1-14.3) L 03/10/19 07:48 Hct 24.6 % (30.3-42.9) L 03/10/19 07:48 MCV 77 fl (79-97) L 03/10/19 07:48 MCH 24 pg (28-32) L 03/10/19 07:48 MCHC 31 % (30-34) 03/10/19 07:48 RDW 22.4 % (13.2-15.2) H 03/10/19 07:48 Plt Count 283 K/mm3 (140-440) 03/10/19 07:48 Lymph % (Auto) [place] [employer] [place]aser 02/26/19 11:01 [place] % (Auto) Wash And Greaser 02/26/19 11:01 Eos % (Auto) [employer] Greaser 02/26/19 11:01 Baso % (Auto) [place] [employer] [place]aser 02/26/19 11:01 Lymph # Wash [employer] Greaser 02/26/19 11:01 [place] # Wash And Greaser 02/26/19 11:01 Eos # Wash And Greaser 02/26/19 11:01 Baso # [place] [employer] Greaser 02/26/19 11:01 Add Manual Diff Complete 02/26/19 11:01 Total Counted 100 02/26/19 11:01 Seg Neutrophils % Wash And Greaser 02/26/19 11:01 Seg Neuts % (Manual) 86.0 % (40.0-70.0) H 02/26/19 11:01 0 % 02/26/19 11:01 4.0 % (13.4-35.0) L 02/26/19 11:01 Reactive Lymphs % (Man) 0 % 02/26/19 11:01 9.0 % (0.0-7.3) H 02/26/19 11:01 1.0 % (0.0-4.3) 02/26/19 11:01 0 % (0.0-1.8) 02/26/19 11:01 0 % 02/26/19 11:01 0 % 02/26/19 11:01 0 % 02/26/19 11:01 0 % 02/26/19 11:01 Nucleated RBC % Not Reportable 02/26/19 11:01 Seg Neutrophils # [place] [employer] Greaser 02/26/19 11:01 Seg Neutrophils # Man 6.4 K/mm3 (1.8-7.7) 02/26/19 11:01 Band Neutrophils # 0.0 K/mm3 02/26/19 11:01 0.3 K/mm3 (1.2-5.4) L 02/26/19 11:01 Abs React Lymphs (Man) 0.0 K/mm3 02/26/19 11:01 0.7 K/mm3 (0.0-0.8) 02/26/19 11:01 0.1 K/mm3 (0.0-0.4) 02/26/19 11:01 0.0 K/mm3 (0.0-0.1) 02/26/19 11:01 0.0 K/mm3 02/26/19 11:01 0.0 K/mm3 02/26/19 11:01 0.0 K/mm3 02/26/19 11:01 Blast Cells # 0.0 K/mm3 02/26/19 11:01 WBC Morphology Not Reportable 02/26/19 11:01 Hypersegmented Neuts Not Reportable 02/26/19 11:01 Hyposegmented Neuts Not Reportable 02/26/19 11:01 Hypogranular Neuts Not Reportable 02/26/19 11:01 Not Reportable 02/26/19 11:01 Not Reportable 02/26/19 11:01 Not Reportable 02/26/19 11:01 Not Reportable 02/26/19 11:01 Not Reportable 02/26/19 11:01 Not Reportable 02/26/19 11:01 Consistent w auto 02/26/19 11:01 Not Reportable 02/26/19 11:01 Plt Clumps, EDTA Not Reportable 02/26/19 11:01 Not Reportable 02/26/19 11:01 Not Reportable 02/26/19 11:01 Not Reportable 02/26/19 11:01 Plt Morphology Comment Not Reportable 02/26/19 11:01 RBC Morphology Not Reportable 02/26/19 11:01 Dimorphic RBCs Not Reportable 02/26/19 11:01 Few 02/26/19 11:01 1+ 02/26/19 11:01 Not Reportable 02/26/19 11:01 1+ 02/26/19 11:01 Not Reportable 02/26/19 11:01 Not Reportable 02/26/19 11:01 Not Reportable 02/26/19 11:01 Not Reportable 02/26/19 11:01 Not Reportable 02/26/19 11:01 Few 02/26/19 11:01 Not Reportable 02/26/19 11:01 Few 02/26/19 11:01 Not Reportable 02/26/19 11:01 Not Reportable 02/26/19 11:01 Not Reportable 02/26/19 11:01 Not Reportable 02/26/19 11:01 Not Reportable 02/26/19 11:01 Not Reportable 02/26/19 11:01 Not Reportable 02/26/19 11:01 Acanthocytes (Spur) Not Reportable 02/26/19 11:01 Rouleaux Not Reportable 02/26/19 11:01 Not Reportable 02/26/19 11:01 Not Reportable 02/26/19 11:01 Not Reportable 02/26/19 11:01 Not Reportable 02/26/19 11:01 Hem Pathologist Commnt No 02/26/19 11:01 Sodium 136 mmol/L (137-145) L 03/10/19 07:48 Potassium 4.8 mmol/L (3.6-5.0) 03/10/19 07:48 Chloride 93.6 mmol/L (98-107) L 03/10/19 07:48 Carbon Dioxide 27 mmol/L (22-30) 03/10/19 07:48 20 mmol/L 03/10/19 07:48 BUN 32 mg/dL (7-17) H 03/10/19 07:48 5.6 mg/dL (0.7-1.2) H 03/10/19 07:48 Estimated GFR 9 ml/min 03/10/19 07:48 6 % 03/10/19 07:48 Glucose 115 mg/dL (65-100) H 03/10/19 07:48 POC Glucose 207 (70-105) H 03/12/19 11:20 6.8 % (4-6) H 03/08/19 05:03 Calcium 9.6 mg/dL (8.4-10.2) 03/10/19 07:48 0.40 mg/dL (0.1-1.2) 02/26/19 11:01 AST 32 units/L (5-40) 02/26/19 11:01 ALT 17 units/L (7-56) 02/26/19 11:01 382 units/L (35-129) H 02/26/19 11:01 5.7 g/dL (6.3-8.2) L 02/26/19 11:01 2.6 g/dL (3.9-5) L 02/26/19 11:01 0.8 % 02/26/19 11:01 Random Vancomycin 30.9 ug/mL (0-40.0) 03/10/19 07:48 Hepatitis A IgM Ab Non-reactive (NonReactive) 02/28/19 10:48 Hep Bs Antigen Non-reactive (Negative) 02/28/19 10:48 Hep B Core IgM Ab Non-reactive (NonReactive) 02/28/19 10:48 Non-reactive (NonReactive) 02/28/19 10:48 Active Medications - Current Medications Current Medications: Generic Name Dose Route Start Last Admin Trade Name Freq PRN Reason Stop Dose Admin Albuterol 2.5 mg 02/25/19 18:39 03/07/19 07:24 Proventil IH 2.5 mg Q4HRT PRN Administration Shortness Of Breath Amlodipine Besylate 5 mg 02/26/19 08:00 03/12/19 08:43 Norvasc PO Not Given QDAY JUAQUIN Aspirin 81 mg 02/26/19 08:00 03/12/19 08:42 Halfprin Ec PO 81 mg QDAY JUAQUIN Administration Bisacodyl 10 mg 03/07/19 15:19 Dulcolax HI QDAY PRN Constipation Calcium Acetate 667 mg 02/26/19 07:30 03/12/19 12:54 Phoslo PO 667 mg AC JUAQUIN Administration Clopidogrel Bisulfate 75 mg 02/26/19 08:00 03/12/19 08:42 Plavix PO 75 mg QDAY JUAQUIN Administration Dextrose 50 ml 03/03/19 16:04 03/09/19 07:48 D50w (25gm) Syringe IV 50 ml PRN PRN Administration Hypoglycemia Diphenhydramine HCl 25 mg 02/25/19 18:39 03/08/19 18:23 Benadryl PO 25 mg Q6H PRN Administration Itching Ezetimibe 10 mg 02/25/19 22:00 03/11/19 22:42 Zetia PO 10 mg HS JUAQUIN Administration Epoetin [place] 10,000 unit 02/26/19 13:00 03/10/19 19:24 Procrit IV 10,000 unit ANNI [facility] Administration Heparin Sodium (Porcine) 5,000 unit 02/25/19 22:00 03/12/19 05:41 Heparin SUB-Q 5,000 unit Q8HR JUAQUIN Administration Sodium Chloride 100 mls @ 999 mls/hr 03/09/19 17:42 Nacl 0.9% IV ANNI PRN Hypotension Vancomycin HCl 500 mg/ Sodium 110 mls @ 66.667 mls/hr 03/12/19 22:00 Chloride IV 03/19/19 23:59 TuThSa [facility] Insulin Human Lispro 0 unit 03/09/19 15:00 03/12/19 07:11 Humalog SUB-Q Not Given Q4H [facility] Protocol Levothyroxine Sodium 50 mcg 02/26/19 06:00 03/12/19 05:41 Synthroid PO 50 mcg DAILY@0600 JUAQUIN Administration Multivit/Ca Carb/B Cmplx/FA/Prenat 1 cap 02/27/19 08:00 03/12/19 08:42 Renal Caps PO 1 cap QDAY JUAQUIN Administration Ondansetron HCl 4 mg 03/06/19 02:49 Zofran IV Q8H PRN Nausea And Vomiting Oxycodone/Acetaminophen 1 tab 02/25/19 18:39 03/08/19 18:23 Percocet 5/325 PO 1 tab Q6H PRN Administration Pain, Moderate (4-6) Pantoprazole Sodium 40 mg 03/07/19 08:00 03/12/19 08:42 Protonix PO 40 mg QDAY JUAQUIN Administration Polyethylene Glycol 17 gm 03/12/19 11:00 03/12/19 12:54 Miralax 3350 PO 17 gm QDAY JUAQUIN Administration Pravastatin Sodium 40 mg 02/25/19 21:00 03/11/19 22:43 Pravachol PO 40 mg QHS JUAQUIN Administration Pregabalin 75 mg 02/25/19 22:00 03/11/19 22:43 Lyrica PO 75 mg HS JUAQUIN Administration Simethicone 80 mg 02/28/19 10:11 02/28/19 11:25 Mylicon PO 80 mg Q6H PRN Administration Gas pain Nutrition/Malnutrition Assess - Dietary Evaluation Nutrition/Malnutrition Findings: Nutrition Notes Start: 03/04/19 17:30 Freq: Status: Active Protocol: Document 03/04/19 17:30 RM (Rec: 03/04/19 17:31 RM [id number]) Nutrition Notes Need for Assessment generated from: LOS Initial or Follow up Brief Note Height 4 ft 11 in Weight 67.8 kg Reading Body Weight (kg) 43.18 BMI 30.2 Subjective/Other Information Screened for LOS. Recorded PO intake 81% X 4 meals. Nutrition Intervention Revisit per MD consult or patient Sign Off request:
[2019-03-12] MEDS ORDERED: VANCOMYCIN/NS 1 GM/250 ML 1 GM/250 ML BAG IV SCH (15:00)
[2019-03-12] MEDS ORDERED: VANCOMYCIN PHARMACY TO DOSE IV SCH (15:00)
[2019-03-12] MEDS: PROCRIT IV SCH (16:00)
[2019-03-12] MEDS: ZETIA PO SCH (21:46)
[2019-03-12] MEDS: PRAVACHOL PO SCH (21:47)
[2019-03-12] MEDS: LYRICA PO SCH (21:58)
[2019-03-12] MEDS ORDERED: VANCOMYCIN 500 MG in NACL 0.9% 100 ML IV SCH (22:00)
[2019-03-12] MEDS: VANCOMYCIN 500 MG in NACL 0.9% 100 ML IV SCH (22:10)
[2019-03-13] MEDS: HumaLOG SUB-Q SCH ×6 (00:09→21:57)
[2019-03-13] MEDS: HEPARIN SUB-Q SCH ×3 (05:46→21:56)
[2019-03-13] MEDS: SYNTHROID PO SCH (05:48)
[2019-03-13 08:03] LABS: Hematocrit 24.6 % (30.3-42.9); Hemoglobin 7.6 gm/dl (10.1-14.3); Mean Corpuscular HGB Conc 31 % (30-34); Mean Corpuscular Volume 78 fl (79-97); Platelet Count 260 K/mm3 (140-440); Red Blood Count 3.16 M/mm3 (3.65-5.03)
[2019-03-13 08:04] LABS: Red Cell Distribution Width 22.8 % (13.2-15.2)
[2019-03-13 08:13] LABS: Calcium 8.6 mg/dL (8.4-10.2)
--- NOTE | 2019-03-13 08:26 | Progress Note ---
Subjective Date of service: 03/13/19 Principal diagnosis: R BKA Interval history: 78-year-old female with right foot pain presented to ER and found to have sepsis. Amputation was previously discussed for the right lower extremity gangrene however family refused. Patient had been undergoing treatment HBOT without resolution. ID was consulted and started antibiotics. Vascular surgery performed angiography. Afterwards she was scheduled for a right BKA which proceeded without incident. After the patient was medically stabilized they were transferred for further rehabilitation. All available medical records have been reviewed. Plan of care was discussed with patient and family. Patient is participating in therapy and making reasonable progress. Taking rest breaks as needed. +BM , monitor. GLU is improving, Appreciate hospitalist assistance. Monitor. Dyspnea on exertion, better with O2, noted to be fluid overloaded by script reader - hopefully this will improve with dialysis. Breathing improved with supplemental O2 and after dialysis, Some phantom sensation but no overt phantom pain. Continue to work on transfers. Will need to practice car transfers with family prior to discharge. Discussed with daughter and patient that she will follow up with bolao after discharge and he will schedule appt with [facility] for prosthetic. Continue therapy as planned. No signs of infection in RLE. Continues vanc on dialysis days. All records, vitals, labs and medications were reviewed. No other issues per patient, nursing or therapy. Objective - Exam Narrative Exam: MUSCULOSKELETAL SPECIALTY EXAM CONSTITUTIONAL: Well developed, well nourished, appropriately groomed EENT: Legally blind. Oropharynx clear. RESPIRATORY: Clear to auscultation bilaterally, no increased work of breathing, no crackles. Supplemental O2. Exertional dyspnea noted CARDIOVASCULAR: Slight 1+edema in LLE, otherwise Regular Rate/ Rhythm, no swelling, edema or tenderness in BUE or BLE. All extremities warm. Thrill in LUE GI: + bowel sounds, soft, nondistended. INTEGUMENTARY: normal, no lesion, rash, masses or bruising noted in extremities. Surgical wound on right lower extremity is healing well, mike have been removed. MUSCULOSKELETAL: Right BKA, otherwise BUE and BLE normal without defect, crepitus, subluxation, effusion, arthritic changes or TTP. BUE 4/5, good ROM, with normal tone. LLE 4-/5 good ROM, with normal tone, RLE decreased ROM secondary to pain NEURO: CN 2-12 grossly intact. Sensation intact in all extremities. No tremor noted in 4 extremities. POSTURE and GAIT: Sitting posture good. Balance appears reasonable. Gait deferred, based on standing performance she may not be able to ambulate with just a walker without prosthesis. PSYCH: Alert, orientated x2, slightly confused at times and decreased memory, affect appears normal. - Constitutional Vitals: Vital Signs - 12hr 03/12/19 03/12/19 03/12/19 20:44 20:45 21:00 Temperature 36.3 C L Pulse Rate 75 71 Respiratory 18 17 Rate Respiratory Rate [Left Leg] Blood Pressure 139/58 Blood Pressure [Right] O2 Sat by Pulse 100 100 98 Oximetry 03/12/19 03/13/19 03/13/19 22:00 01:28 04:30 Temperature 36.6 C Pulse Rate 60 61 Respiratory 20 18 Rate Respiratory 16 Rate [Left Leg] Blood Pressure 113/46 Blood Pressure 123/48 [Right] O2 Sat by Pulse 100 100 Oximetry 03/13/19 03/13/19 04:31 04:35 Temperature 36.4 C L Pulse Rate 60 69 Respiratory 18 Rate Respiratory Rate [Left Leg] Blood Pressure Blood Pressure 113/46 [Right] O2 Sat by Pulse 100 100 Oximetry - Allied health notes Allied health notes reviewed: nursing, PT, ST, OT FIMS assessment as documented by PT/OT/ST: Grooming Patient cleans teeth/dentures: Yes Patient holguin/brushes hair: Yes Patient washes, rinses and Yes dries face: Patient washes, rinses and Yes dries hands: Patient shaves: No Patient applies make-up: No Patient performs (no make-up/ 12/04 (100%) shaving): Grooming FIM Score 4. Minimal Assistance (Patient = 75% or more. Needs touching.) Toileting Toileting Device Bedpan Toileting FIM Score 2. Maximal Assistance (Patient = 25% or more) Social interaction/Memory/Problem solving Social Interaction FIM Score 7. Complete [place] (Interacts appropriately. Controls temper.) Memory FIM Score 4. Minimal Assistance (Recognizes and remembers 75-90%.) Problem Solving FIM Score 4. Minimal Assistance (Solves routine problems 75-90%.) Transfers Mode of Locomotion: Wheelchair Bed/Chair/Wheelchair Transfers 5. Supervision (Needs supv. or set-up for FIM Score sliding board, foot rests.) Toilet Transfers FIM Score 1. Total Assistance (Patient less than 25%. 2 or more persons.) Patient transferred to: Shower Shower Transfers FIM Score 1. Total Assistance (Patient less than 25%. 2 or more persons.) Locomotion- Stairs Stairs FIM Score 0. Activity does not occur Locomotion- walk/wheelchair Most Frequent Mode of Wheelchair Locomotion: Ambulation Distance 0 Walking FIM Score 0. Activity does not occur Wheelchair Propulsion Distance 150 Wheelchair FIM Score 5. Supervision (Minimum 150 ft. supv./cues or 50 ft. independently.) Eating Eating FIM Score 5. Supervision/Set-Up (Needs help w/ containers, cutting meat, etc.) Dressing-Upper body Patient retrieves clothing No items: Patient applies/removes UE No: n/a prosthesis or orthosis: Upper Body Dressing FIM Score 5. Supv./Set-Up ([place] sets out clothes or applies pros./orth.) Dressing-lower body Patient retrieves clothing No items: Patient applies/removes LE No: n/a prosthesis or orthosis: Lower Body Dressing FIM Score 2. Maximal Assistance (Patient = 25% or more) - Labs CBC & Chem 7: 03/13/19 07:50 03/13/19 07:50 Labs: Laboratory Results - last 72 hr 03/10/19 03/10/19 03/10/19 07:48 12:19 16:35 WBC RBC Hgb Hct MCV MCH MCHC RDW Plt Count Sodium Potassium Chloride Carbon Dioxide Anion Gap BUN Creatinine Estimated GFR BUN/Creatinine Ratio Glucose POC Glucose 222 H 189 H Calcium Magnesium Random Vancomycin 30.9 03/10/19 03/11/19 03/11/19 21:20 04:43 07:44 WBC RBC Hgb Hct MCV MCH MCHC RDW Plt Count Sodium Potassium Chloride Carbon Dioxide Anion Gap BUN Creatinine Estimated GFR BUN/Creatinine Ratio Glucose POC Glucose 209 H 441 H 209 H Calcium Magnesium Random Vancomycin 03/11/19 03/11/19 03/11/19 11:44 16:32 21:01 WBC RBC Hgb Hct MCV MCH MCHC RDW Plt Count Sodium Potassium Chloride Carbon Dioxide Anion Gap BUN Creatinine Estimated GFR BUN/Creatinine Ratio Glucose POC Glucose 221 H 255 H 307 H Calcium Magnesium Random Vancomycin 03/12/19 03/12/19 03/12/19 00:08 05:45 07:38 WBC RBC Hgb Hct MCV MCH MCHC RDW Plt Count Sodium Potassium Chloride Carbon Dioxide Anion Gap BUN Creatinine Estimated GFR BUN/Creatinine Ratio Glucose POC Glucose 266 H 103 115 H Calcium Magnesium Random Vancomycin 03/12/19 03/12/19 03/12/19 11:20 16:47 21:56 WBC RBC Hgb Hct MCV MCH MCHC RDW Plt Count Sodium Potassium Chloride Carbon Dioxide Anion Gap BUN Creatinine Estimated GFR BUN/Creatinine Ratio Glucose POC Glucose 207 H 230 H 426 H Calcium Magnesium Random Vancomycin 03/13/19 03/13/19 03/13/19 04:32 07:50 07:50 WBC 5.6 RBC 3.16 L Hgb 7.6 L Hct 24.6 L MCV 78 L MCH 24 L MCHC 31 RDW 22.8 H Plt Count 260 Sodium 134 L Potassium 4.3 Chloride 92.0 L Carbon Dioxide 29 Anion Gap 17 BUN 18 H Creatinine 3.8 H Estimated GFR 14 BUN/Creatinine Ratio 5 Glucose 149 H POC Glucose 100 Calcium 8.6 Magnesium 1.50 L Random Vancomycin Assessment and Plan R BKA: Will likely be a K1 ambulator, K2 not likely in reach at this point. After speaking with daughter, patient will most likely remain K1. Monitor wound. On isolation for MRSA in Blood with 4 weeks vancomycin during dialysis (03/19/2019 per ID notes). Continue to work on transfers and mobility. Monitor for phantom sensation/pain. Discussed prosthesis. Last blood culture was n egative and patient remains on antibiotics with no excessive drainage from the wound. GILBERTO: Cont CPAP HTN: Monitor BP and adjust meds for normotension DM: Carb controlled diet. Monitor glucose. SSI. 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 R26.2 Difficulty walking: PT will work on gait training and proper use of assistive devices and advance as appropriate to use of stairs and outside ambulation on uneven surfaces. R26.81 Unsteadiness on feet: PT will work on improving static and dynamic sitting and standing balance as well as proper use of assistive devices to decrease risk of falls. R26.89 Abnormality of gait: PT will work to improve safety and efficiency of gait through neuromotor training and gait training along with instruction on proper use of assistive devices. M62.81 Muscle weakness: PT & OT will work on strengthening exercises to improve functional strength including mixture of closed and open kinetic chain exer cises. R53.81 Debility: PT & OT will work on improving overall functional status to improve participation with ADLs, mobility and social involvement. R53.83 Fatigue: PT & OT will work on improving endurance through aerobic exercises and therapeutic activity while monitoring patients tolerance for a ctivity and vital signs as needed. Dyspnea - Supplemental O2 at night and whenever she is in therapy. Monitor frequently for s/s of dyspnea decreased O2 sats, fluid overloaded per nephrology Anemia - recheck CBC - stable, cont procrit per nephrology DVT ppx: heparin Pain: Continue physical modalities in therapy and pain medications as needed to achieve functional pain control. Sleep: Monitor and address as needed. Bowel: Monitor and address as needed. Appetite: Monitor and address as needed. Discharge planning: Plan to d/c Saturday 03/17. Will continue discussion with therapy team, SW, patient and family. Restrictions/ Precautions: Falls WB status: FWB Functional Hx: ADLs: Independent Cognition: Needed assistance Mobility: Cane and w/c for distance Barriers to Discharge: Decreased mobility and ability to perform self care, balance deficits, weakness, cognition, transfers Estimated Length of Stay: 14-18 days Discharge Destination: Home with family with supervision
--- NOTE | 2019-03-13 08:35 | Progress Note ---
Assessment and Plan 1. ESRD: Continue hemodialysis three times a week, TTS schedule. 2. FEN: Volume overload, improved, UF with HD. Advised to limit fluid intake. Hyperkalemia, improved. 3. Anemia: Epogen with HD. Monitor H/H. 4. PAD: S/p R LE angioplasty and R BKA. 5. GILBERTO: CPAP. 6. DM type 2. 7. HTN: BP well controlled. In Acute rehab unit. Subjective Date of service: 03/13/19 Principal diagnosis: R BKA Interval history: Patient was seen and examined at the bedside. Doing ok. Objective - Vital Signs Vital signs: Vital Signs - 12hr 03/12/19 03/12/19 03/12/19 20:44 20:45 21:00 Temperature 97.4 F L Pulse Rate 75 71 Respiratory 18 17 Rate Respiratory Rate [Left Leg] Blood Pressure 139/58 Blood Pressure [Right] O2 Sat by Pulse 100 100 98 Oximetry 03/12/19 03/13/19 03/13/19 22:00 01:28 04:30 Temperature 97.9 F Pulse Rate 60 61 Respiratory 20 18 Rate Respiratory 16 Rate [Left Leg] Blood Pressure 113/46 Blood Pressure 123/48 [Right] O2 Sat by Pulse 100 100 Oximetry 03/13/19 03/13/19 04:31 04:35 Temperature 97.5 F L Pulse Rate 60 69 Respiratory 18 Rate Respiratory Rate [Left Leg] Blood Pressure Blood Pressure 113/46 [Right] O2 Sat by Pulse 100 100 Oximetry - General Appearance General appearance: well-developed, well-nourished, appears stated age, other (no distress) EENT: ATNC, PERRL, hearing diminished, other (decreased vision) Neck: supple Respiratory: Present: Clear to Ascultation Cardiology: regular, S1S2, no murmurs Gastrointestinal: normoactive bowel sounds, no tenderness, no distended Integumentary: no rash, warm and dry Neurologic: no asterixis, other (some confusion) Musculoskeletal: other (R BKA, no edema, L arm AVF) Psychiatric: cooperative - Lab 03/13/19 07:50 03/13/19 07:50 Most recent lab results Calcium 8.6 mg/dL (8.4-10.2) 03/13/19 07:50 Magnesium 1.50 mg/dL (1.7-2.3) L 03/13/19 07:50 Medications & Allergies - Medications Allergies/Adverse Reactions: Allergies Iodinated Contrast- Oral and IV Dye Allergy (Verified 11/25/18 15:48) Hives, Rash Penicillins Allergy (Verified 11/25/18 15:48) Hives Home Medications: Home Medications Medication Instructions Recorded Confirmed Last Taken Type B Complex 11/Folic/C/Biot/Zinc 1 each PO DAILY 09/06/15 02/25/19 11/25/18 20:00 History [Dialyvite with Zinc Tablet] Lispro Insulin [HumaLOG] 7 unit SQ AC 11/25/18 02/25/19 Unknown History Pantoprazole Sodium 40 mg PO DAILY 11/25/18 02/25/19 11/26/18 05:00 History amLODIPine [Norvasc] 5 mg PO DAILY 11/25/18 02/25/19 11/28/18 History 2.5 Ranitidine HCl [Zantac] 300 mg PO BID 02/16/19 02/25/19 Unknown History Calcium Acetate 667 mg PO AC 02/18/19 02/25/19 Unknown History Levothyroxine 0.05 mg PO QDAY 02/18/19 02/25/19 Unknown History Lyrica 75 mg PO HS 02/18/19 02/25/19 Unknown History Pravastatin 40 mg PO HS 02/18/19 02/25/19 Unknown History Zetia 10 mg PO HS 02/18/19 02/25/19 Unknown History Aspirin EC 81 mg PO QDAY #30 tablet 02/25/19 02/25/19 Unknown Rx Clopidogrel [Plavix] 75 mg PO QDAY #30 tablet 02/25/19 02/25/19 Unknown Rx oxyCODONE /ACETAMINOPHEN [Percocet 1 tab PO Q6H PRN #14 tablet 02/25/19 02/25/19 Unknown Rx 5/325 mg] Active Medications: Generic Name Dose Route Start Last Admin Trade Name Freq PRN Reason Stop Dose Admin Albuterol 2.5 mg 02/25/19 18:39 03/07/19 07:24 Proventil IH 2.5 mg Q4HRT PRN Administration Shortness Of Breath Amlodipine Besylate 5 mg 02/26/19 08:00 03/12/19 08:43 Norvasc PO Not Given QDAY JUAQUIN Aspirin 81 mg 02/26/19 08:00 03/12/19 08:42 Halfprin Ec PO 81 mg QDAY JUAQUIN Administration Bisacodyl 10 mg 03/07/19 15:19 Dulcolax NV QDAY PRN Constipation Calcium Acetate 667 mg 02/26/19 07:30 03/12/19 18:26 Phoslo PO 667 mg AC JUAQUIN Administration Clopidogrel Bisulfate 75 mg 02/26/19 08:00 03/12/19 08:42 Plavix PO 75 mg QDAY JUAQUIN Administration Dextrose 50 ml 03/03/19 16:04 03/09/19 07:48 D50w (25gm) Syringe IV 50 ml PRN PRN Administration Hypoglycemia Diphenhydramine HCl 25 mg 02/25/19 18:39 03/08/19 18:23 Benadryl PO 25 mg Q6H PRN Administration Itching Ezetimibe 10 mg 02/25/19 22:00 03/12/19 21:46 Zetia PO 10 mg HS JUAQUIN Administration Epoetin [place] 10,000 unit 02/26/19 13:00 03/12/19 16:00 Procrit IV 10,000 unit ANNI JUAQUIN Administration Heparin Sodium (Porcine) 5,000 unit 02/25/19 22:00 03/13/19 05:46 Heparin SUB-Q 5,000 unit Q8HR JUAQUIN Administration Sodium Chloride 100 mls @ 999 mls/hr 03/09/19 17:42 Nacl 0.9% IV ANNI PRN Hypotension Vancomycin HCl 500 mg/ Sodium 110 mls @ 66.667 mls/hr 03/12/19 22:00 03/12/19 22:10 Chloride IV 66.667 mls/hr TuThSa JUAQUIN Administration Insulin Human Lispro 0 unit 03/09/19 15:00 03/13/19 05:41 Humalog SUB-Q Not Given Q4H [facility] Protocol Levothyroxine Sodium 50 mcg 02/26/19 06:00 03/13/19 05:48 Synthroid PO 50 mcg DAILY@0600 JUAQUIN Administration Multivit/Ca Carb/B Cmplx/FA/Prenat 1 cap 02/27/19 08:00 03/12/19 08:42 Renal Caps PO 1 cap QDAY JUAQUIN Administration Ondansetron HCl 4 mg 03/06/19 02:49 Zofran IV Q8H PRN Nausea And Vomiting Oxycodone/Acetaminophen 1 tab 02/25/19 18:39 03/08/19 18:23 Percocet 5/325 PO 1 tab Q6H PRN Administration Pain, Moderate (4-6) Pantoprazole Sodium 40 mg 03/07/19 08:00 03/12/19 08:42 Protonix PO 40 mg QDAY JUAQUIN Administration Polyethylene Glycol 17 gm 03/12/19 11:00 03/12/19 12:54 Miralax 3350 PO 17 gm QDAY JUAQUIN Administration Pravastatin Sodium 40 mg 02/25/19 21:00 03/12/19 21:47 Pravachol PO 40 mg QHS JUAQUIN Administration Pregabalin 75 mg 02/25/19 22:00 03/12/19 21:58 Lyrica PO 75 mg HS JUAQUIN Administration Simethicone 80 mg 02/28/19 10:11 02/28/19 11:25 Mylicon PO 80 mg Q6H PRN Administration Gas pain
[2019-03-13] MEDS: MIRALAX 3350 PO SCH (12:34)
[2019-03-13] MEDS: Renal Caps PO SCH (12:36)
[2019-03-13] MEDS: PHOSLO PO SCH ×3 (12:36→18:54)
[2019-03-13] MEDS: PLAVIX PO SCH (12:36)
[2019-03-13] MEDS: PROTONIX PO SCH (12:36)
[2019-03-13] MEDS: NORVASC PO SCH (12:37)
[2019-03-13] MEDS: HALFPRIN EC PO SCH (12:41)
[2019-03-13] MEDS: MAG-OX PO SCH (12:59)
--- NOTE | 2019-03-13 14:18 | Progress Note ---
Assessment and Plan Assessment and plan: Hospitalist hearing aid consultant for DM in the Inpatient Rehab unit of [facility] Patient is a 78-year-old woman with a history of PVD, DM type 2, ESRD on hemodialysis, GERD, CVA, heart failure, hypertension, hypothyroidism, legally blind and GILBERTO who presented to [facility] inpatient rehab unit following right leg BKA. Hospitalist consulted and following for uncontrolled DM. 03/09/19 Blood glucose is very labile because patient has Brittle Diabetes Mellitus. 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 Will continue to monitor CODE MET called, AMS/somnolent due to BG 27. Dextrose was to be given then she lost IV access, so I ordered Glucagon IM; however, she was waking up and drank OJ then IV re-established and she was given Dextrose IV and 1mg IM Glucagon. Her blood glucose feliz rocketed to 218 and she was A/o x 3. 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 Acute Metabolic Encephalopathy secondary to Hypoglycemia;Resolved Patient with very labile Blood glucose. She is not sure how much insulin she gets at home but states they use sliding scale. She will benefit from oral hypoglycemia agents as outpatient but i wonder if she has had bouts of hypoglycemia in the past. DM Type 2 with hyperglycemia, a1c 6.8: continue SSI monitor SOB with perihilar edema on 03/05/19 CXR: treated with HD and repeat CXR, shows improvement GILBERTO ON CPAP: Stable GERD: Famotidine ESRD: HD tts, Nephrology following HTN, controlled: low salt diet and treat with antihypertensives HX OF CVA: continue plavix, continue statin, ZETIA Hyperlipidemia: statin Hypothyrodisim: CONTINUE SYNTHROID Anemia: Monitor, on epogen DVT/GI prophylaxis History Interval history: Patient seen and examined, resting comfortable. no change, She is currently at rehabilitation station participates in activities and rehabilitation. Hospitalist Physical - Physical exam Narrative exam: Gen: WDWN, NAD, Awake, Alert, Orientated HEENT: NCAT, EOMI, PERRL, OP Clear Neck: supple, no adenopathy, no thyromegaly, no JVD CVS/Heart: RRR, normal S1S2, pulses present bilaterally Chest/Lungs: CTA B, Symmetrical chest expansion, good air entry bilaterally GI/Abdomen: soft, NTND, good bowel sounds, no guarding or rebound /Bladder: no suprapubic tenderness, no CVA or paraspinal tenderness Extermity/Skin: no c/c/e,, excoriated skin rashes noted crusted over. MSK: FROM x 3, with right leg BKA mike removed, wound looks ok, Neuro: CN 2-12 grossly intact, no new focal deficits Psych: calm - Constitutional Vitals: Temp Pulse Resp BP Pulse Ox 97.4 F L 73 18 146/63 96 03/13/19 12:35 03/13/19 12:37 03/13/19 12:35 03/13/19 12:37 03/13/19 12:35 General appearance: Present: no acute distress, well-nourished Results - Labs CBC & Chem 7: 03/13/19 07:50 03/13/19 07:50 Labs: Laboratory Last Values WBC 5.6 K/mm3 (4.5-11.0) 03/13/19 07:50 RBC 3.16 M/mm3 (3.65-5.03) L 03/13/19 07:50 Hgb 7.6 gm/dl (10.1-14.3) L 03/13/19 07:50 Hct 24.6 % (30.3-42.9) L 03/13/19 07:50 MCV 78 fl (79-97) L 03/13/19 07:50 MCH 24 pg (28-32) L 03/13/19 07:50 MCHC 31 % (30-34) 03/13/19 07:50 RDW 22.8 % (13.2-15.2) H 03/13/19 07:50 Plt Count 260 K/mm3 (140-440) 03/13/19 07:50 Lymph % (Auto) Accounts Collector 02/26/19 11:01 Turner % (Auto) Accounts Collector 02/26/19 11:01 Eos % (Auto) Accounts Collector 02/26/19 11:01 Baso % (Auto) Accounts Collector 02/26/19 11:01 Lymph # Accounts Collector 06/27/19 11:01 Turner # Accounts Collector 02/26/19 11:01 Eos # Accounts Collector 02/26/19 11:01 Baso # Accounts Collector 02/26/19 11:01 Add Manual Diff Complete 02/26/19 11:01 Total Counted 100 02/26/19 11:01 Seg Neutrophils % Accounts Collector 02/26/19 11:01 Seg Neuts % (Manual) 86.0 % (40.0-70.0) H 02/26/19 11:01 0 % 02/26/19 11:01 4.0 % (13.4-35.0) L 02/26/19 11:01 Reactive Lymphs % (Man) 0 % 02/26/19 11:01 9.0 % (0.0-7.3) H 02/26/19 11:01 1.0 % (0.0-4.3) 02/26/19 11:01 0 % (0.0-1.8) 02/26/19 11:01 0 % 02/26/19 11:01 0 % 02/26/19 11:01 0 % 02/26/19 11:01 0 % 02/26/19 11:01 Nucleated RBC % Not Reportable 02/26/19 11:01 Seg Neutrophils # Accounts Collector 02/26/19 11:01 Seg Neutrophils # Man 6.4 K/mm3 (1.8-7.7) 02/26/19 11:01 Band Neutrophils # 0.0 K/mm3 02/26/19 11:01 0.3 K/mm3 (1.2-5.4) L 02/26/19 11:01 Abs React Lymphs (Man) 0.0 K/mm3 02/26/19 11:01 0.7 K/mm3 (0.0-0.8) 02/26/19 11:01 0.1 K/mm3 (0.0-0.4) 02/26/19 11:01 0.0 K/mm3 (0.0-0.1) 02/26/19 11:01 0.0 K/mm3 02/26/19 11:01 0.0 K/mm3 02/26/19 11:01 0.0 K/mm3 02/26/19 11:01 Blast Cells # 0.0 K/mm3 02/26/19 11:01 WBC Morphology Not Reportable 02/26/19 11:01 Hypersegmented Neuts Not Reportable 02/26/19 11:01 Hyposegmented Neuts Not Reportable 02/26/19 11:01 Hypogranular Neuts Not Reportable 02/26/19 11:01 Not Reportable 02/26/19 11:01 Not Reportable 02/26/19 11:01 Not Reportable 02/26/19 11:01 Not Reportable 02/26/19 11:01 Not Reportable 02/26/19 11:01 Not Reportable 02/26/19 11:01 Consistent w auto 02/26/19 11:01 Not Reportable 02/26/19 11:01 Plt Clumps, EDTA Not Reportable 02/26/19 11:01 Not Reportable 02/26/19 11:01 Not Reportable 02/26/19 11:01 Not Reportable 02/26/19 11:01 Plt Morphology Comment Not Reportable 02/26/19 11:01 RBC Morphology Not Reportable 02/26/19 11:01 Dimorphic RBCs Not Reportable 02/26/19 11:01 Few 02/26/19 11:01 1+ 02/26/19 11:01 Not Reportable 02/26/19 11:01 1+ 02/26/19 11:01 Not Reportable 02/26/19 11:01 Not Reportable 02/26/19 11:01 Not Reportable 02/26/19 11:01 Not Reportable 02/26/19 11:01 Not Reportable 02/26/19 11:01 Few 02/26/19 11:01 Not Reportable 02/26/19 11:01 Few 02/26/19 11:01 Not Reportable 02/26/19 11:01 Not Reportable 02/26/19 11:01 Not Reportable 02/26/19 11:01 Not Reportable 02/26/19 11:01 Not Reportable 02/26/19 11:01 Not Reportable 02/26/19 11:01 Not Reportable 02/26/19 11:01 Acanthocytes (Spur) Not Reportable 02/26/19 11:01 Rouleaux Not Reportable 02/26/19 11:01 Not Reportable 02/26/19 11:01 Not Reportable 02/26/19 11:01 Not Reportable 02/26/19 11:01 Not Reportable 02/26/19 11:01 Hem Pathologist Commnt No 02/26/19 11:01 Sodium 134 mmol/L (137-145) L 03/13/19 07:50 Potassium 4.3 mmol/L (3.6-5.0) 03/13/19 07:50 Chloride 92.0 mmol/L (98-107) L 03/13/19 07:50 Carbon Dioxide 29 mmol/L (22-30) 03/13/19 07:50 17 mmol/L 03/13/19 07:50 BUN 18 mg/dL (7-17) H 03/13/19 07:50 3.8 mg/dL (0.7-1.2) H 03/13/19 07:50 Estimated GFR 14 ml/min 03/13/19 07:50 5 % 03/13/19 07:50 Glucose 149 mg/dL (65-100) H 03/13/19 07:50 POC Glucose 282 (70-105) H 03/13/19 11:59 6.8 % (4-6) H 03/08/19 05:03 Calcium 8.6 mg/dL (8.4-10.2) 03/13/19 07:50 Magnesium 1.50 mg/dL (1.7-2.3) L 03/13/19 07:50 0.40 mg/dL (0.1-1.2) 02/26/19 11:01 AST 32 units/L (5-40) 02/26/19 11:01 ALT 17 units/L (7-56) 02/26/19 11:01 382 units/L (35-129) H 02/26/19 11:01 5.7 g/dL (6.3-8.2) L 02/26/19 11:01 2.6 g/dL (3.9-5) L 02/26/19 11:01 0.8 % 02/26/19 11:01 Random Vancomycin 30.9 ug/mL (0-40.0) 03/10/19 07:48 Hepatitis A IgM Ab Non-reactive (NonReactive) 02/28/19 10:48 Hep Bs Antigen Non-reactive (Negative) 02/28/19 10:48 Hep B Core IgM Ab Non-reactive (NonReactive) 02/28/19 10:48 Non-reactive (NonReactive) 02/28/19 10:48 Active Medications - Current Medications Current Medications: Generic Name Dose Route Start Last Admin Trade Name Freq PRN Reason Stop Dose Admin Albuterol 2.5 mg 02/25/19 18:39 03/07/19 07:24 Proventil IH 2.5 mg Q4HRT PRN Administration Shortness Of Breath Amlodipine Besylate 5 mg 02/26/19 08:00 03/13/19 12:37 Norvasc PO 5 mg QDAY JUAQUIN Administration Aspirin 81 mg 02/26/19 08:00 03/13/19 12:41 Halfprin Ec PO 81 mg QDAY JUAQUIN Administration Bisacodyl 10 mg 03/07/19 15:19 Dulcolax NM QDAY PRN Constipation Calcium Acetate 667 mg 02/26/19 07:30 03/13/19 12:53 Phoslo PO Not Given AC JUAQUIN Clopidogrel Bisulfate 75 mg 02/26/19 08:00 03/13/19 12:36 Plavix PO 75 mg QDAY JUAQUIN Administration Dextrose 50 ml 03/03/19 16:04 03/09/19 07:48 D50w (25gm) Syringe IV 50 ml PRN PRN Administration Hypoglycemia Diphenhydramine HCl 25 mg 02/25/19 18:39 03/08/19 18:23 Benadryl PO 25 mg Q6H PRN Administration Itching Ezetimibe 10 mg 02/25/19 22:00 03/12/19 21:46 Zetia PO 10 mg HS JUAQUIN Administration Epoetin [place] 10,000 unit 02/26/19 13:00 03/12/19 16:00 Procrit IV 10,000 unit ANNI JUAQUIN Administration Heparin Sodium (Porcine) 5,000 unit 02/25/19 22:00 03/13/19 05:46 Heparin SUB-Q 5,000 unit Q8HR JUAQUIN Administration Sodium Chloride 100 mls @ 999 mls/hr 03/09/19 17:42 Nacl 0.9% IV ANNI PRN Hypotension Vancomycin HCl 500 mg/ Sodium 110 mls @ 66.667 mls/hr 03/12/19 22:00 03/12/19 22:10 Chloride IV 03/19/19 23:38 66.667 mls/hr TuThSa JUAQUIN Administration Insulin Human Lispro 0 unit 03/09/19 15:00 03/13/19 12:17 Humalog SUB-Q 4 unit Q4H JUAQUIN Administration Protocol Levothyroxine Sodium 50 mcg 02/26/19 06:00 03/13/19 05:48 Synthroid PO 50 mcg DAILY@0600 JUAQUIN Administration Magnesium Oxide 400 mg 03/13/19 09:30 03/13/19 12:59 Mag-Ox PO 400 mg QDAY JUAQUIN Administration Multivit/Ca Carb/B Cmplx/FA/Prenat 1 cap 02/27/19 08:00 03/13/19 12:36 Renal Caps PO 1 cap QDAY JUAQUIN Administration Ondansetron HCl 4 mg 03/06/19 02:49 Zofran IV Q8H PRN Nausea And Vomiting Oxycodone/Acetaminophen 1 tab 02/25/19 18:39 03/08/19 18:23 Percocet 5/325 PO 1 tab Q6H PRN Administration Pain, Moderate (4-6) Pantoprazole Sodium 40 mg 03/07/19 08:00 03/13/19 12:36 Protonix PO 40 mg QDAY JUAQUIN Administration Polyethylene Glycol 17 gm 03/12/19 11:00 03/13/19 12:34 Miralax 3350 PO Not Given QDAY JUAQUIN Pravastatin Sodium 40 mg 02/25/19 21:00 03/12/19 21:47 Pravachol PO 40 mg QHS JUAQUIN Administration Pregabalin 75 mg 02/25/19 22:00 03/12/19 21:58 Lyrica PO 75 mg HS JUAQUIN Administration Simethicone 80 mg 02/28/19 10:11 02/28/19 11:25 Mylicon PO 80 mg Q6H PRN Administration Gas pain Nutrition/Malnutrition Assess - Dietary Evaluation Nutrition/Malnutrition Findings: Nutrition Notes Start: 03/04/19 17:30 Freq: Status: Active Protocol: Document 03/04/19 17:30 RM (Rec: 03/04/19 17:31 RM [id number]) Nutrition Notes Need for Assessment generated from: LOS Initial or Follow up Brief Note Height 4 ft 11 in Weight 67.8 kg [place] Body Weight (kg) 43.18 BMI 30.2 Subjective/Other Information Screened for LOS. Recorded PO intake 81% X 4 meals. Nutrition Intervention Revisit per MD consult or patient Sign Off request:
[2019-03-13] MEDS: PRAVACHOL PO SCH (21:56)
[2019-03-13] MEDS: ZETIA PO SCH (21:56)
[2019-03-13] MEDS: LYRICA PO SCH (21:56)
[2019-03-13] MEDS ORDERED: PROCRIT SUB-Q PRN (23:52)
[2019-03-14] MEDS: HumaLOG SUB-Q SCH ×6 (05:55→23:38)
[2019-03-14] MEDS: SYNTHROID PO SCH (05:58)
[2019-03-14] MEDS: HEPARIN SUB-Q SCH ×3 (05:59→23:31)
[2019-03-14] MEDS: Renal Caps PO SCH (10:49)
[2019-03-14] MEDS: MAG-OX PO SCH (10:49)
[2019-03-14] MEDS: PROTONIX PO SCH (10:49)
[2019-03-14] MEDS: PLAVIX PO SCH (10:50)
[2019-03-14] MEDS: PHOSLO PO SCH ×3 (10:50→17:40)
[2019-03-14] MEDS: NORVASC PO SCH (10:51)
[2019-03-14] MEDS: MIRALAX 3350 PO SCH (10:51)
[2019-03-14] MEDS: HALFPRIN EC PO SCH (10:52)
--- NOTE | 2019-03-14 11:32 | Progress Note ---
Assessment and Plan Assessment and plan: Hospitalist recruiting and selection consultant for DM in the Inpatient Rehab unit of [facility] Patient is a 78-year-old woman with a history of PVD, DM type 2, ESRD on hemodialysis, GERD, CVA, heart failure, hypertension, hypothyroidism, legally blind and GILBERTO who presented to [facility] inpatient rehab unit following right leg BKA. Hospitalist consulted and following for uncontrolled DM. 03/09/19 Blood glucose is very labile because patient has Brittle Diabetes Mellitus. Long acting insulin cause cadd manager hypoglycemia; nonetheless, her blood sugars are very high during mealtime, so I will add fast acting insulin with meals and increase SSI to high dose protocol. Will continue to monitor CODE MET called, AMS/somnolent due to BG 27. Dextrose was to be given then she lost IV access, so I ordered Glucagon IM; however, she was waking up and drank OJ then IV re-established and she was given Dextrose IV and 1mg IM Glucagon. 03/14: Clinically stable, continue current management plan Right foot gangrene with severe PVD s/p BKA: Continue rehab, PT, OT CONTINUE Vancomyin till 03/19 per ID recommendation band scroll saw operator hypoglycemia, suspect Somogyi effect: discontinued long acting insulin and cover with SSI for now. Acute Metabolic Encephalopathy secondary to Hypoglycemia;Resolved Patient with very labile Blood glucose. She is not sure how much insulin she gets at home but states they use sliding scale. She will benefit from oral hypoglycemia agents as outpatient but i wonder if she has had bouts of hypoglycemia in the past. DM Type 2 with hyperglycemia, a1c 6.8: continue SSI monitor SOB with perihilar edema on 03/05/19 CXR: treated with HD and repeat CXR, shows improvement GILBERTO ON CPAP: Stable GERD: Famotidine ESRD: HD tts, Nephrology following HTN, controlled: low salt diet and treat with antihypertensives HX OF CVA: continue plavix, continue statin, ZETIA Hyperlipidemia: statin Hypothyrodisim: CONTINUE SYNTHROID Anemia: Monitor, on epogen DVT/GI prophylaxis History Interval history: Patient seen and examined, resting comfortable. no change, She is currently at rehabilitation station participates in activities and rehabilitation. Hospitalist Physical - Physical exam Narrative exam: Gen: WDWN, NAD, Awake, Alert, Orientated HEENT: NCAT, EOMI, PERRL, OP Clear Neck: supple, no adenopathy, no thyromegaly, no JVD CVS/Heart: RRR, normal S1S2, pulses present bilaterally Chest/Lungs: CTA B, Symmetrical chest expansion, good air entry bilaterally GI/Abdomen: soft, NTND, good bowel sounds, no guarding or rebound /Bladder: no suprapubic tenderness, no CVA or paraspinal tenderness Extermity/Skin: no c/c/e,, excoriated skin rashes noted crusted over. MSK: FROM x 3, with right leg BKA mike removed, wound looks ok, Neuro: CN 2-12 grossly intact, no new focal deficits Psych: calm - Constitutional Vitals: Temp Pulse Resp BP Pulse Ox 98.8 F 68 20 144/56 94 03/14/19 07:20 03/14/19 07:20 03/14/19 07:20 03/14/19 07:20 03/14/19 07:20 General appearance: Present: no acute distress, well-nourished Results - Labs CBC & Chem 7: 03/13/19 07:50 03/13/19 07:50 Labs: Laboratory Last Values WBC 5.6 K/mm3 (4.5-11.0) 03/13/19 07:50 RBC 3.16 M/mm3 (3.65-5.03) L 03/13/19 07:50 Hgb 7.6 gm/dl (10.1-14.3) L 03/13/19 07:50 Hct 24.6 % (30.3-42.9) L 03/13/19 07:50 MCV 78 fl (79-97) L 03/13/19 07:50 MCH 24 pg (28-32) L 03/13/19 07:50 MCHC 31 % (30-34) 03/13/19 07:50 RDW 22.8 % (13.2-15.2) H 03/13/19 07:50 Plt Count 260 K/mm3 (140-440) 03/13/19 07:50 Lymph % (Auto) Pin Maker 02/26/19 11:01 Piatt % (Auto) Pin Maker 02/26/19 11:01 Eos % (Auto) Pin Maker 02/26/19 11:01 Baso % (Auto) Pin Maker 02/26/19 11:01 Lymph # Pin Maker 02/26/19 11:01 Piatt # Pin Maker 02/26/19 11:01 Eos # Pin Maker 02/26/19 11:01 Baso # Pin Maker 02/26/19 11:01 Add Manual Diff Complete 02/26/19 11:01 Total Counted 100 02/26/19 11:01 Seg Neutrophils % Pin Maker 02/26/19 11:01 Seg Neuts % (Manual) 86.0 % (40.0-70.0) H 02/26/19 11:01 0 % 02/26/19 11:01 4.0 % (13.4-35.0) L 02/26/19 11:01 Reactive Lymphs % (Man) 0 % 02/26/19 11:01 9.0 % (0.0-7.3) H 02/26/19 11:01 1.0 % (0.0-4.3) 02/26/19 11:01 0 % (0.0-1.8) 02/26/19 11:01 0 % 02/26/19 11:01 0 % 02/26/19 11:01 0 % 02/26/19 11:01 0 % 02/26/19 11:01 Nucleated RBC % Not Reportable 02/26/19 11:01 Seg Neutrophils # Pin Maker 02/26/19 11:01 Seg Neutrophils # Man 6.4 K/mm3 (1.8-7.7) 02/26/19 11:01 Band Neutrophils # 0.0 K/mm3 02/26/19 11:01 0.3 K/mm3 (1.2-5.4) L 02/26/19 11:01 Abs React Lymphs (Man) 0.0 K/mm3 02/26/19 11:01 0.7 K/mm3 (0.0-0.8) 02/26/19 11:01 0.1 K/mm3 (0.0-0.4) 02/26/19 11:01 0.0 K/mm3 (0.0-0.1) 02/26/19 11:01 0.0 K/mm3 02/26/19 11:01 0.0 K/mm3 02/26/19 11:01 0.0 K/mm3 02/26/19 11:01 Blast Cells # 0.0 K/mm3 02/26/19 11:01 WBC Morphology Not Reportable 02/26/19 11:01 Hypersegmented Neuts Not Reportable 02/26/19 11:01 Hyposegmented Neuts Not Reportable 02/26/19 11:01 Hypogranular Neuts Not Reportable 02/26/19 11:01 Not Reportable 02/26/19 11:01 Not Reportable 02/26/19 11:01 Not Reportable 02/26/19 11:01 Not Reportable 02/26/19 11:01 Not Reportable 02/26/19 11:01 Not Reportable 02/26/19 11:01 Consistent w auto 02/26/19 11:01 Not Reportable 02/26/19 11:01 Plt Clumps, EDTA Not Reportable 02/26/19 11:01 Not Reportable 02/26/19 11:01 Not Reportable 02/26/19 11:01 Not Reportable 02/26/19 11:01 Plt Morphology Comment Not Reportable 02/26/19 11:01 RBC Morphology Not Reportable 02/26/19 11:01 Dimorphic RBCs Not Reportable 02/26/19 11:01 Few 02/26/19 11:01 1+ 02/26/19 11:01 Not Reportable 02/26/19 11:01 1+ 02/26/19 11:01 Not Reportable 02/26/19 11:01 Not Reportable 02/26/19 11:01 Not Reportable 02/26/19 11:01 Not Reportable 02/26/19 11:01 Not Reportable 02/26/19 11:01 Few 02/26/19 11:01 Not Reportable 02/26/19 11:01 Few 02/26/19 11:01 Not Reportable 02/26/19 11:01 Not Reportable 02/26/19 11:01 Not Reportable 02/26/19 11:01 Not Reportable 02/26/19 11:01 Not Reportable 02/26/19 11:01 Not Reportable 02/26/19 11:01 Not Reportable 02/26/19 11:01 Acanthocytes (Spur) Not Reportable 02/26/19 11:01 Rouleaux Not Reportable 02/26/19 11:01 Not Reportable 02/26/19 11:01 Not Reportable 02/26/19 11:01 Not Reportable 02/26/19 11:01 Not Reportable 02/26/19 11:01 Hem Pathologist Commnt No 02/26/19 11:01 Sodium 134 mmol/L (137-145) L 03/13/19 07:50 Potassium 4.3 mmol/L (3.6-5.0) 03/13/19 07:50 Chloride 92.0 mmol/L (98-107) L 03/13/19 07:50 Carbon Dioxide 29 mmol/L (22-30) 03/13/19 07:50 17 mmol/L 03/13/19 07:50 BUN 18 mg/dL (7-17) H 03/13/19 07:50 3.8 mg/dL (0.7-1.2) H 03/13/19 07:50 Estimated GFR 14 ml/min 03/13/19 07:50 5 % 03/13/19 07:50 Glucose 149 mg/dL (65-100) H 03/13/19 07:50 POC Glucose 146 (70-105) H 03/14/19 07:26 6.8 % (4-6) H 03/08/19 05:03 Calcium 8.6 mg/dL (8.4-10.2) 03/13/19 07:50 Magnesium 1.50 mg/dL (1.7-2.3) L 03/13/19 07:50 0.40 mg/dL (0.1-1.2) 02/26/19 11:01 AST 32 units/L (5-40) 02/26/19 11:01 ALT 17 units/L (7-56) 02/26/19 11:01 382 units/L (35-129) H 02/26/19 11:01 5.7 g/dL (6.3-8.2) L 02/26/19 11:01 2.6 g/dL (3.9-5) L 02/26/19 11:01 0.8 % 02/26/19 11:01 Random Vancomycin 30.9 ug/mL (0-40.0) 03/10/19 07:48 Hepatitis A IgM Ab Non-reactive (NonReactive) 02/28/19 10:48 Hep Bs Antigen Non-reactive (Negative) 02/28/19 10:48 Hep B Core IgM Ab Non-reactive (NonReactive) 02/28/19 10:48 Non-reactive (NonReactive) 02/28/19 10:48 Active Medications - Current Medications Current Medications: Generic Name Dose Route Start Last Admin Trade Name Freq PRN Reason Stop Dose Admin Albuterol 2.5 mg 02/25/19 18:39 03/07/19 07:24 Proventil IH 2.5 mg Q4HRT PRN Administration Shortness Of Breath Amlodipine Besylate 5 mg 02/26/19 08:00 03/14/19 10:51 Norvasc PO Not Given QDAY JUAQUIN Aspirin 81 mg 02/26/19 08:00 03/14/19 10:52 Halfprin Ec PO 81 mg QDAY JUAQUIN Administration Bisacodyl 10 mg 03/07/19 15:19 Dulcolax [place] QDAY PRN Constipation Calcium Acetate 667 mg 02/26/19 07:30 03/14/19 10:50 Phoslo PO 667 mg AC JUAQUIN Administration Clopidogrel Bisulfate 75 mg 02/26/19 08:00 03/14/19 10:50 Plavix PO 75 mg QDAY JUAQUIN Administration Dextrose 50 ml 03/03/19 16:04 03/09/19 07:48 D50w (25gm) Syringe IV 50 ml PRN PRN Administration Hypoglycemia Diphenhydramine HCl 25 mg 02/25/19 18:39 03/08/19 18:23 Benadryl PO 25 mg Q6H PRN Administration Itching Ezetimibe 10 mg 02/25/19 22:00 03/13/19 21:56 Zetia PO 10 mg HS JUAQUIN Administration Epoetin [place] 20,000 unit 03/13/19 23:52 Procrit SUB-Q ANNI PRN hemodialysis Heparin Sodium (Porcine) 5,000 unit 02/25/19 22:00 03/14/19 05:59 Heparin SUB-Q 5,000 unit Q8HR JUAQUIN Administration Sodium Chloride 100 mls @ 999 mls/hr 03/09/19 17:42 Nacl 0.9% IV ANIN PRN Hypotension Vancomycin HCl 500 mg/ Sodium 110 mls @ 66.667 mls/hr 03/12/19 22:00 03/12/19 22:10 Chloride IV 03/19/19 23:38 66.667 mls/hr TuThSa JUAQUIN Administration Insulin Human Lispro 0 unit 03/09/19 15:00 03/14/19 05:55 Humalog SUB-Q Not Given Q4H [facility] Protocol Levothyroxine Sodium 50 mcg 02/26/19 06:00 03/14/19 05:58 Synthroid PO 50 mcg DAILY@0600 JUAQUIN Administration Magnesium Oxide 400 mg 03/13/19 09:30 03/14/19 10:49 Mag-Ox PO 400 mg QDAY JUAQUIN Administration Multivit/Ca Carb/B Cmplx/FA/Prenat 1 cap 02/27/19 08:00 03/14/19 10:49 Renal Caps PO 1 cap QDAY JUAQUIN Administration Ondansetron HCl 4 mg 03/06/19 02:49 Zofran IV Q8H PRN Nausea And Vomiting Oxycodone/Acetaminophen 1 tab 02/25/19 18:39 03/08/19 18:23 Percocet 5/325 PO 1 tab Q6H PRN Administration Pain, Moderate (4-6) Pantoprazole Sodium 40 mg 03/07/19 08:00 03/14/19 10:49 Protonix PO 40 mg QDAY JUAQUIN Administration Polyethylene Glycol 17 gm 03/12/19 11:00 03/14/19 10:51 Miralax 3350 PO Not Given QDAY JUAQUIN Pravastatin Sodium 40 mg 02/25/19 21:00 03/13/19 21:56 Pravachol PO 40 mg QHS JUAQUIN Administration Pregabalin 75 mg 02/25/19 22:00 03/13/19 21:56 Lyrica PO 75 mg HS JUAQUIN Administration Simethicone 80 mg 02/28/19 10:11 02/28/19 11:25 Mylicon PO 80 mg Q6H PRN Administration Gas pain Nutrition/Malnutrition Assess - Dietary Evaluation Nutrition/Malnutrition Findings: Nutrition Notes Start: 03/04/19 17:30 Freq: Status: Active Protocol: Document 03/04/19 17:30 RM (Rec: 03/04/19 17:31 RM [id number]) Nutrition Notes Need for Assessment generated from: LOS Initial or Follow up Brief Note Height 4 ft 11 in Weight 67.8 kg [place] Body Weight (kg) 43.18 BMI 30.2 Subjective/Other Information Screened for LOS. Recorded PO intake 81% X 4 meals. Nutrition Intervention Revisit per MD consult or patient Sign Off request:
--- NOTE | 2019-03-14 13:08 | Progress Note ---
Assessment and Plan 1. ESRD: Continue hemodialysis three times a week, TTS schedule. 2. FEN: Volume overload, imprving, UF with HD. Advised to limit fluid intake. Hyperkalemia, improved. 3. Anemia: Epogen with HD. Monitor H/H. 4. PAD: S/p R LE angioplasty and R BKA. 5. GILBERTO: CPAP. 6. DM type 2. 7. HTN: BP well controlled. In Acute rehab unit. Subjective Date of service: 03/14/19 Principal diagnosis: R BKA Interval history: Patient was seen and examined at the bedside. Doing ok. Objective - Vital Signs Vital signs: Vital Signs - 12hr 03/14/19 03/14/19 03/14/19 03:21 07:20 11:20 Temperature 97.5 F L 98.8 F 97.9 F Pulse Rate 68 68 61 Respiratory 20 20 20 Rate Blood Pressure 125/49 144/56 162/60 O2 Sat by Pulse 96 94 94 Oximetry - General Appearance General appearance: well-developed, well-nourished, appears stated age, other (no distress) EENT: ATNC, PERRL Neck: supple Respiratory: Present: Clear to Ascultation Cardiology: regular, S1S2, no murmurs Gastrointestinal: normoactive bowel sounds, no tenderness, no distended Integumentary: no rash, warm and dry Neurologic: no focal deficit, no asterixis Musculoskeletal: other (L LE edema noted, R BKA, L arm AVF) Psychiatric: cooperative - Lab 03/13/19 07:50 03/13/19 07:50 Most recent lab results Calcium 8.6 mg/dL (8.4-10.2) 03/13/19 07:50 Magnesium 1.50 mg/dL (1.7-2.3) L 03/13/19 07:50 Medications & Allergies - Medications Allergies/Adverse Reactions: Allergies Iodinated Contrast- Oral and IV Dye Allergy (Verified 11/25/18 15:48) Hives, Rash Penicillins Allergy (Verified 11/25/18 15:48) Hives Home Medications: Home Medications Medication Instructions Recorded Confirmed Last Taken Type B Complex 11/Folic/C/Biot/Zinc 1 each PO DAILY 09/06/15 02/25/19 11/25/18 20:00 History [Dialyvite with Zinc Tablet] Lispro Insulin [HumaLOG] 7 unit SQ AC 11/25/18 02/25/19 Unknown History Pantoprazole Sodium 40 mg PO DAILY 11/25/18 02/25/19 11/26/18 05:00 History amLODIPine [Norvasc] 5 mg PO DAILY 11/25/18 02/25/19 11/28/18 History 2.5 Ranitidine HCl [Zantac] 300 mg PO BID 02/16/19 02/25/19 Unknown History Calcium Acetate 667 mg PO AC 02/18/19 02/25/19 Unknown History Levothyroxine 0.05 mg PO QDAY 02/18/19 02/25/19 Unknown History Lyrica 75 mg PO HS 02/18/19 02/25/19 Unknown History Pravastatin 40 mg PO HS 02/18/19 02/25/19 Unknown History Zetia 10 mg PO HS 02/18/19 02/25/19 Unknown History Aspirin EC 81 mg PO QDAY #30 tablet 02/25/19 02/25/19 Unknown Rx Clopidogrel [Plavix] 75 mg PO QDAY #30 tablet 02/25/19 02/25/19 Unknown Rx oxyCODONE /ACETAMINOPHEN [Percocet 1 tab PO Q6H PRN #14 tablet 02/25/19 02/25/19 Unknown Rx 5/325 mg] Active Medications: Generic Name Dose Route Start Last Admin Trade Name Freq PRN Reason Stop Dose Admin Albuterol 2.5 mg 02/25/19 18:39 03/07/19 07:24 Proventil IH 2.5 mg Q4HRT PRN Administration Shortness Of Breath Amlodipine Besylate 5 mg 02/26/19 08:00 03/14/19 10:51 Norvasc PO Not Given QDAY JUAQUIN Aspirin 81 mg 02/26/19 08:00 03/14/19 10:52 Halfprin Ec PO 81 mg QDAY JUAQUIN Administration Bisacodyl 10 mg 03/07/19 15:19 Dulcolax [place] QDAY PRN Constipation Calcium Acetate 667 mg 02/26/19 07:30 03/14/19 10:50 Phoslo PO 667 mg AC JUAQUIN Administration Clopidogrel Bisulfate 75 mg 02/26/19 08:00 03/14/19 10:50 Plavix PO 75 mg QDAY JUAQUIN Administration Dextrose 50 ml 03/03/19 16:04 03/09/19 07:48 D50w (25gm) Syringe IV 50 ml PRN PRN Administration Hypoglycemia Diphenhydramine HCl 25 mg 02/25/19 18:39 03/08/19 18:23 Benadryl PO 25 mg Q6H PRN Administration Itching Ezetimibe 10 mg 02/25/19 22:00 03/13/19 21:56 Zetia PO 10 mg HS JUAQUIN Administration Epoetin [place] 20,000 unit 03/13/19 23:52 Procrit SUB-Q ANNI PRN hemodialysis Heparin Sodium (Porcine) 5,000 unit 02/25/19 22:00 03/14/19 05:59 Heparin SUB-Q 5,000 unit Q8HR JUAQUIN Administration Sodium Chloride 100 mls @ 999 mls/hr 03/09/19 17:42 Nacl 0.9% IV ANNI PRN Hypotension Vancomycin HCl 500 mg/ Sodium 110 mls @ 66.667 mls/hr 03/12/19 22:00 03/12/19 22:10 Chloride IV 03/19/19 23:38 66.667 mls/hr TuThSa JUAQUIN Administration Insulin Human Lispro 0 unit 03/09/19 15:00 03/14/19 05:55 Humalog SUB-Q Not Given Q4H [facility] Protocol Levothyroxine Sodium 50 mcg 02/26/19 06:00 03/14/19 05:58 Synthroid PO 50 mcg DAILY@0600 JUAQUIN Administration Magnesium Oxide 400 mg 03/13/19 09:30 03/14/19 10:49 Mag-Ox PO 400 mg QDAY [facility] Administration Multivit/Ca Carb/B Cmplx/FA/Prenat 1 cap 02/27/19 08:00 03/14/19 10:49 Renal Caps PO 1 cap QDAY JUAQUIN Administration Ondansetron HCl 4 mg 03/06/19 02:49 Zofran IV Q8H PRN Nausea And Vomiting Oxycodone/Acetaminophen 1 tab 02/25/19 18:39 03/08/19 18:23 Percocet 5/325 PO 1 tab Q6H PRN Administration Pain, Moderate (4-6) Pantoprazole Sodium 40 mg 03/07/19 08:00 03/14/19 10:49 Protonix PO 40 mg QDAY JUAQUIN Administration Polyethylene Glycol 17 gm 03/12/19 11:00 03/14/19 10:51 Miralax 3350 PO Not Given QDAY JUAQUIN Pravastatin Sodium 40 mg 02/25/19 21:00 03/13/19 21:56 Pravachol PO 40 mg QHS JUAQUIN Administration Pregabalin 75 mg 02/25/19 22:00 03/13/19 21:56 Lyrica PO 75 mg HS JUAQUIN Administration Simethicone 80 mg 02/28/19 10:11 02/28/19 11:25 Mylicon PO 80 mg Q6H PRN Administration Gas pain
[2019-03-14] MEDS: LYRICA PO SCH (23:30)
[2019-03-14] MEDS: PRAVACHOL PO SCH (23:30)
[2019-03-14] MEDS: ZETIA PO SCH (23:30)
[2019-03-14] MEDS ORDERED: PROCRIT ONE (23:35)
[2019-03-15] MEDS: VANCOMYCIN 500 MG in NACL 0.9% 100 ML IV SCH (00:03)
[2019-03-15] MEDS: HEPARIN SUB-Q SCH ×3 (06:02→21:13)
[2019-03-15] MEDS: SYNTHROID PO SCH (06:02)
[2019-03-15] MEDS: HumaLOG SUB-Q SCH ×6 (06:24→23:47)
[2019-03-15] MEDS: HALFPRIN EC PO SCH (08:50)
[2019-03-15] MEDS: MAG-OX PO SCH (08:50)
[2019-03-15] MEDS: PROTONIX PO SCH (08:50)
[2019-03-15] MEDS: PLAVIX PO SCH (08:50)
[2019-03-15] MEDS: MIRALAX 3350 PO SCH (08:50)
[2019-03-15] MEDS: Renal Caps PO SCH (08:50)
[2019-03-15] MEDS: PHOSLO PO SCH ×3 (08:50→17:17)
[2019-03-15] MEDS: NORVASC PO SCH (08:51)
--- NOTE | 2019-03-15 13:05 | Progress Note ---
Assessment and Plan Assessment and plan: Hospitalist mental health consultant for DM in the Inpatient Rehab unit of [facility] Patient is a 78-year-old woman with a history of PVD, DM type 2, ESRD on hemodialysis, GERD, CVA, heart failure, hypertension, hypothyroidism, legally blind and GILBERTO who presented to [facility] inpatient rehab unit following right leg BKA. Hospitalist consulted and following for uncontrolled DM. 03/09/19 Blood glucose is very labile because patient has Brittle Diabetes Mellitus. 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 Will continue to monitor CODE MET called, AMS/somnolent due to BG 27. Dextrose was to be given then she lost IV access, so I ordered Glucagon IM; however, she was waking up and drank OJ then IV re-established and she was given Dextrose IV and 1mg IM Glucagon. 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 Acute Metabolic Encephalopathy secondary to Hypoglycemia;Resolved Patient with very labile Blood glucose. She is not sure how much insulin she gets at home but states they use sliding scale. She will benefit from oral hypoglycemia agents as outpatient but i wonder if she has had bouts of hypoglycemia in the past. DM Type 2 with hyperglycemia, a1c 6.8: continue SSI monitor SOB with perihilar edema on 03/05/19 CXR: treated with HD and repeat CXR, shows improvement GILBERTO ON CPAP: Stable GERD: Famotidine ESRD: HD tts, Nephrology following HTN, controlled: low salt diet and treat with antihypertensives HX OF CVA: continue plavix, continue statin, ZETIA Hyperlipidemia: statin Hypothyrodisim: CONTINUE SYNTHROID Anemia: Monitor, on epogen DVT/GI prophylaxis History Interval history: Patient seen and examined, resting comfortable. family visiting, no new complaints Hospitalist Physical - Physical exam Narrative exam: Gen: WDWN, NAD, Awake, Alert, Orientated HEENT: NCAT, EOMI, PERRL, OP Clear Neck: supple, no adenopathy, no thyromegaly, no JVD CVS/Heart: RRR, normal S1S2, pulses present bilaterally Chest/Lungs: CTA B, Symmetrical chest expansion, good air entry bilaterally GI/Abdomen: soft, NTND, good bowel sounds, no guarding or rebound /Bladder: no suprapubic tenderness, no CVA or paraspinal tenderness Extermity/Skin: no c/c/e,, excoriated skin rashes noted crusted over. MSK: FROM x 3, with right leg BKA mike removed, wound looks ok, Neuro: CN 2-12 grossly intact, no new focal deficits Psych: calm - Constitutional Vitals: Temp Pulse Resp BP Pulse Ox 98 F 61 18 143/49 94 03/15/19 12:00 03/15/19 12:00 03/15/19 12:00 03/15/19 12:00 03/15/19 12:00 General appearance: Present: no acute distress, well-nourished Results - Labs CBC & Chem 7: 03/13/19 07:50 03/13/19 07:50 Labs: Laboratory Last Values WBC 5.6 K/mm3 (4.5-11.0) 03/13/19 07:50 RBC 3.16 M/mm3 (3.65-5.03) L 03/13/19 07:50 Hgb 7.6 gm/dl (10.1-14.3) L 03/13/19 07:50 Hct 24.6 % (30.3-42.9) L 03/13/19 07:50 MCV 78 fl (79-97) L 03/13/19 07:50 MCH 24 pg (28-32) L 03/13/19 07:50 MCHC 31 % (30-34) 03/13/19 07:50 RDW 22.8 % (13.2-15.2) H 03/13/19 07:50 Plt Count 260 K/mm3 (140-440) 03/13/19 07:50 Lymph % (Auto) Technical Healthcare Consultant 02/26/19 11:01 Swift % (Auto) Technical Healthcare Consultant 02/26/19 11:01 Eos % (Auto) Technical Healthcare Consultant 02/26/19 11:01 Baso % (Auto) Technical Healthcare Consultant 02/26/19 11:01 Lymph # Technical Healthcare Consultant 02/26/19 11:01 Swift # Technical Healthcare Consultant 02/26/19 11:01 Eos # Technical Healthcare Consultant 02/26/19 11:01 Baso # Technical Healthcare Consultant 02/26/19 11:01 Add Manual Diff Complete 02/26/19 11:01 Total Counted 100 02/26/19 11:01 Seg Neutrophils % Technical Healthcare Consultant 02/26/19 11:01 Seg Neuts % (Manual) 86.0 % (40.0-70.0) H 02/26/19 11:01 0 % 02/26/19 11:01 4.0 % (13.4-35.0) L 02/26/19 11:01 Reactive Lymphs % (Man) 0 % 02/26/19 11:01 9.0 % (0.0-7.3) H 02/26/19 11:01 1.0 % (0.0-4.3) 02/26/19 11:01 0 % (0.0-1.8) 02/26/19 11:01 0 % 02/26/19 11:01 0 % 02/26/19 11:01 0 % 02/26/19 11:01 0 % 02/26/19 11:01 Nucleated RBC % Not Reportable 02/26/19 11:01 Seg Neutrophils # Technical Healthcare Consultant 02/26/19 11:01 Seg Neutrophils # Man 6.4 K/mm3 (1.8-7.7) 02/26/19 11:01 Band Neutrophils # 0.0 K/mm3 02/26/19 11:01 0.3 K/mm3 (1.2-5.4) L 02/26/19 11:01 Abs React Lymphs (Man) 0.0 K/mm3 02/26/19 11:01 0.7 K/mm3 (0.0-0.8) 02/26/19 11:01 0.1 K/mm3 (0.0-0.4) 02/26/19 11:01 0.0 K/mm3 (0.0-0.1) 02/26/19 11:01 0.0 K/mm3 02/26/19 11:01 0.0 K/mm3 02/26/19 11:01 0.0 K/mm3 02/26/19 11:01 Blast Cells # 0.0 K/mm3 02/26/19 11:01 WBC Morphology Not Reportable 02/26/19 11:01 Hypersegmented Neuts Not Reportable 02/26/19 11:01 Hyposegmented Neuts Not Reportable 02/26/19 11:01 Hypogranular Neuts Not Reportable 02/26/19 11:01 Not Reportable 02/26/19 11:01 Not Reportable 02/26/19 11:01 Not Reportable 02/26/19 11:01 Not Reportable 02/26/19 11:01 Not Reportable 02/26/19 11:01 Not Reportable 02/26/19 11:01 Consistent w auto 02/26/19 11:01 Not Reportable 02/26/19 11:01 Plt Clumps, EDTA Not Reportable 02/26/19 11:01 Not Reportable 02/26/19 11:01 Not Reportable 02/26/19 11:01 Not Reportable 02/26/19 11:01 Plt Morphology Comment Not Reportable 02/26/19 11:01 RBC Morphology Not Reportable 02/26/19 11:01 Dimorphic RBCs Not Reportable 02/26/19 11:01 Few 02/26/19 11:01 1+ 02/26/19 11:01 Not Reportable 02/26/19 11:01 1+ 02/26/19 11:01 Not Reportable 02/26/19 11:01 Not Reportable 02/26/19 11:01 Not Reportable 02/26/19 11:01 Not Reportable 02/26/19 11:01 Not Reportable 02/26/19 11:01 Few 02/26/19 11:01 Not Reportable 02/26/19 11:01 Few 02/26/19 11:01 Not Reportable 02/26/19 11:01 Not Reportable 02/26/19 11:01 Not Reportable 02/26/19 11:01 Not Reportable 02/26/19 11:01 Not Reportable 02/26/19 11:01 Not Reportable 02/26/19 11:01 Not Reportable 02/26/19 11:01 Acanthocytes (Spur) Not Reportable 02/26/19 11:01 Rouleaux Not Reportable 02/26/19 11:01 Not Reportable 02/26/19 11:01 Not Reportable 02/26/19 11:01 Not Reportable 02/26/19 11:01 Not Reportable 02/26/19 11:01 Hem Pathologist Commnt No 02/26/19 11:01 Sodium 134 mmol/L (137-145) L 03/13/19 07:50 Potassium 4.3 mmol/L (3.6-5.0) 03/13/19 07:50 Chloride 92.0 mmol/L (98-107) L 03/13/19 07:50 Carbon Dioxide 29 mmol/L (22-30) 03/13/19 07:50 17 mmol/L 03/13/19 07:50 BUN 18 mg/dL (7-17) H 03/13/19 07:50 3.8 mg/dL (0.7-1.2) H 03/13/19 07:50 Estimated GFR 14 ml/min 03/13/19 07:50 5 % 03/13/19 07:50 Glucose 149 mg/dL (65-100) H 03/13/19 07:50 POC Glucose 307 (70-105) H 03/15/19 11:37 6.8 % (4-6) H 03/08/19 05:03 Calcium 8.6 mg/dL (8.4-10.2) 03/13/19 07:50 Magnesium 1.50 mg/dL (1.7-2.3) L 03/13/19 07:50 0.40 mg/dL (0.1-1.2) 02/26/19 11:01 AST 32 units/L (5-40) 02/26/19 11:01 ALT 17 units/L (7-56) 02/26/19 11:01 382 units/L (35-129) H 02/26/19 11:01 5.7 g/dL (6.3-8.2) L 02/26/19 11:01 2.6 g/dL (3.9-5) L 02/26/19 11:01 0.8 % 02/26/19 11:01 Random Vancomycin 30.9 ug/mL (0-40.0) 03/10/19 07:48 Hepatitis A IgM Ab Non-reactive (NonReactive) 02/28/19 10:48 Hep Bs Antigen Non-reactive (Negative) 02/28/19 10:48 Hep B Core IgM Ab Non-reactive (NonReactive) 02/28/19 10:48 Non-reactive (NonReactive) 02/28/19 10:48 Active Medications - Current Medications Current Medications: Generic Name Dose Route Start Last Admin Trade Name Freq PRN Reason Stop Dose Admin Albuterol 2.5 mg 02/25/19 18:39 03/07/19 07:24 Proventil IH 2.5 mg Q4HRT PRN Administration Shortness Of Breath Amlodipine Besylate 5 mg 02/26/19 08:00 03/15/19 08:51 Norvasc PO 5 mg QDAY JUAQUIN Administration Aspirin 81 mg 02/26/19 08:00 03/15/19 08:50 Halfprin Ec PO 81 mg QDAY JUAQUIN Administration Bisacodyl 10 mg 03/07/19 15:19 Dulcolax FL QDAY PRN Constipation Calcium Acetate 667 mg 02/26/19 07:30 03/15/19 08:50 Phoslo PO 667 mg AC JUAQUIN Administration Clopidogrel Bisulfate 75 mg 02/26/19 08:00 03/15/19 08:50 Plavix PO 75 mg QDAY JUAQUIN Administration Dextrose 50 ml 03/03/19 16:04 03/09/19 07:48 D50w (25gm) Syringe IV 50 ml PRN PRN Administration Hypoglycemia Diphenhydramine HCl 25 mg 02/25/19 18:39 03/08/19 18:23 Benadryl PO 25 mg Q6H PRN Administration Itching Ezetimibe 10 mg 02/25/19 22:00 03/14/19 23:30 Zetia PO 10 mg HS JUAQUIN Administration Epoetin Quincy 20,000 unit 03/13/19 23:52 Procrit SUB-Q ANNI PRN hemodialysis Heparin Sodium (Porcine) 5,000 unit 02/25/19 22:00 03/15/19 06:02 Heparin SUB-Q 5,000 unit Q8HR JUAQUIN Administration Sodium Chloride 100 mls @ 999 mls/hr 03/09/19 17:42 Nacl 0.9% IV ANNI PRN Hypotension Vancomycin HCl 500 mg/ Sodium 110 mls @ 66.667 mls/hr 03/12/19 22:00 03/15/19 00:03 Chloride IV 03/19/19 23:38 66.667 mls/hr TuThSa JUAQUIN Administration Insulin Human Lispro 0 unit 03/09/19 15:00 03/15/19 06:24 Humalog SUB-Q Not Given Q4H [facility] Protocol Levothyroxine Sodium 50 mcg 02/26/19 06:00 03/15/19 06:02 Synthroid PO 50 mcg DAILY@0600 JUAQUIN Administration Magnesium Oxide 400 mg 03/13/19 09:30 03/15/19 08:50 Mag-Ox PO 400 mg QDAY JUAQUIN Administration Multivit/Ca Carb/B Cmplx/FA/Prenat 1 cap 02/27/19 08:00 03/14/19 10:49 Renal Caps PO 1 cap QDAY JUAQUIN Administration Ondansetron HCl 4 mg 03/06/19 02:49 Zofran IV Q8H PRN Nausea And Vomiting Oxycodone/Acetaminophen 1 tab 02/25/19 18:39 03/08/19 18:23 Percocet 5/325 PO 1 tab Q6H PRN Administration Pain, Moderate (4-6) Pantoprazole Sodium 40 mg 03/07/19 08:00 03/15/19 08:50 Protonix PO 40 mg QDAY JUAQUIN Administration Polyethylene Glycol 17 gm 03/12/19 11:00 03/14/19 10:51 Miralax 3350 PO Not Given QDAY JUAQUIN Pravastatin Sodium 40 mg 02/25/19 21:00 03/14/19 23:30 Pravachol PO 40 mg QHS JUAQUIN Administration Pregabalin 75 mg 02/25/19 22:00 03/14/19 23:30 Lyrica PO 75 mg HS JUAQUIN Administration Simethicone 80 mg 02/28/19 10:11 02/28/19 11:25 Mylicon PO 80 mg Q6H PRN Administration Gas pain Nutrition/Malnutrition Assess - Dietary Evaluation Nutrition/Malnutrition Findings: Nutrition Notes Start: 03/04/19 17:30 Freq: Status: Active Protocol: Document 03/04/19 17:30 RM (Rec: 03/04/19 17:31 RM [id number]) Nutrition Notes Need for Assessment generated from: LOS Initial or Follow up Brief Note Height 4 ft 11 in Weight 67.8 kg [place] Body Weight (kg) 43.18 BMI 30.2 Subjective/Other Information Screened for LOS. Recorded PO intake 81% X 4 meals. Nutrition Intervention Revisit per MD consult or patient Sign Off request:
[2019-03-15] MEDS: PRAVACHOL PO SCH (21:13)
[2019-03-15] MEDS: ZETIA PO SCH (21:13)
[2019-03-15] MEDS: LYRICA PO SCH (21:14)
[2019-03-16] MEDS: SYNTHROID PO SCH (07:19)
[2019-03-16] MEDS: HEPARIN SUB-Q SCH ×3 (07:19→22:37)
[2019-03-16] MEDS: HumaLOG SUB-Q SCH ×4 (07:36→22:40)
[2019-03-16] MEDS: MAG-OX PO SCH (08:27)
[2019-03-16] MEDS: PLAVIX PO SCH (08:27)
[2019-03-16] MEDS: Renal Caps PO SCH (08:27)
[2019-03-16] MEDS: HALFPRIN EC PO SCH (08:27)
[2019-03-16] MEDS: PROTONIX PO SCH (08:27)
[2019-03-16] MEDS: NORVASC PO SCH (08:28)
[2019-03-16] MEDS: PHOSLO PO SCH ×2 (08:28→12:46)
[2019-03-16] MEDS: MIRALAX 3350 PO SCH (08:37)
--- NOTE | 2019-03-16 09:11 | Progress Note ---
Assessment and Plan 1. ESRD: Continue hemodialysis three times a week, TTS schedule. 2. FEN: Volume overload, improving, UF with HD. Advised to limit fluid intake. Hyperkalemia, improved. 3. Anemia: Epogen with HD. Monitor H/H. 4. PAD: S/p R LE angioplasty and R BKA. 5. GILBERTO: CPAP. 6. DM type 2. 7. HTN: BP well controlled. In Acute rehab unit. Subjective Date of service: 03/16/19 Principal diagnosis: R BKA Interval history: Patient was seen and examined at the bedside. Doing ok. Objective - Vital Signs Vital signs: Vital Signs - 12hr 03/16/19 03/16/19 03:54 07:30 Temperature 98.3 F 97.6 F Pulse Rate 67 71 Respiratory 16 18 Rate Blood Pressure 158/68 Blood Pressure 152/67 [Right] O2 Sat by Pulse 100 100 Oximetry - General Appearance General appearance: well-developed, well-nourished, appears stated age, other (no distress) EENT: ATNC, PERRL, hearing diminished Neck: supple Respiratory: Present: Clear to Ascultation Cardiology: regular, S1S2, no murmurs Gastrointestinal: normoactive bowel sounds, no tenderness, no distended Integumentary: no rash, warm and dry Neurologic: no focal deficit, no asterixis Musculoskeletal: other (L arm AVF, R BKA, L LE trace edema noted) Psychiatric: cooperative - Lab 03/13/19 07:50 03/13/19 07:50 Most recent lab results Calcium 8.6 mg/dL (8.4-10.2) 03/13/19 07:50 Magnesium 1.50 mg/dL (1.7-2.3) L 03/13/19 07:50 Medications & Allergies - Medications Allergies/Adverse Reactions: Allergies Iodinated Contrast- Oral and IV Dye Allergy (Verified 11/25/18 15:48) Hives, Rash Penicillins Allergy (Verified 11/25/18 15:48) Hives Home Medications: Home Medications Medication Instructions Recorded Confirmed Last Taken Type B Complex 11/Folic/C/Biot/Zinc 1 each PO DAILY 09/06/15 02/25/19 11/25/18 20:00 History [Dialyvite with Zinc Tablet] Lispro Insulin [HumaLOG] 7 unit SQ AC 11/25/18 02/25/19 Unknown History Pantoprazole Sodium 40 mg PO DAILY 11/25/18 02/25/19 11/26/18 05:00 History amLODIPine [Norvasc] 5 mg PO DAILY 11/25/18 02/25/19 11/28/18 History 2.5 Ranitidine HCl [Zantac] 300 mg PO BID 02/16/19 02/25/19 Unknown History Calcium Acetate 667 mg PO AC 02/18/19 02/25/19 Unknown History Levothyroxine 0.05 mg PO QDAY 02/18/19 02/25/19 Unknown History Lyrica 75 mg PO HS 02/18/19 02/25/19 Unknown History Pravastatin 40 mg PO HS 02/18/19 02/25/19 Unknown History Zetia 10 mg PO HS 02/18/19 02/25/19 Unknown History Aspirin EC 81 mg PO QDAY #30 tablet 02/25/19 02/25/19 Unknown Rx Clopidogrel [Plavix] 75 mg PO QDAY #30 tablet 02/25/19 02/25/19 Unknown Rx oxyCODONE /ACETAMINOPHEN [Percocet 1 tab PO Q6H PRN #14 tablet 02/25/19 02/25/19 Unknown Rx 5/325 mg] Active Medications: Generic Name Dose Route Start Last Admin Trade Name Freq PRN Reason Stop Dose Admin Albuterol 2.5 mg 02/25/19 18:39 03/07/19 07:24 Proventil IH 2.5 mg Q4HRT PRN Administration Shortness Of Breath Amlodipine Besylate 5 mg 02/26/19 08:00 03/15/19 08:51 Norvasc PO 5 mg QDAY JUAQUIN Administration Aspirin 81 mg 02/26/19 08:00 03/15/19 08:50 Halfprin Ec PO 81 mg QDAY JUAQUIN Administration Bisacodyl 10 mg 03/07/19 15:19 Dulcolax FL QDAY PRN Constipation Calcium Acetate 667 mg 02/26/19 07:30 03/15/19 17:17 Phoslo PO 667 mg AC JUAQUIN Administration Clopidogrel Bisulfate 75 mg 02/26/19 08:00 03/15/19 08:50 Plavix PO 75 mg QDAY JUAQUIN Administration Dextrose 50 ml 03/03/19 16:04 03/09/19 07:48 D50w (25gm) Syringe IV 50 ml PRN PRN Administration Hypoglycemia Diphenhydramine HCl 25 mg 02/25/19 18:39 03/08/19 18:23 Benadryl PO 25 mg Q6H PRN Administration Itching Ezetimibe 10 mg 02/25/19 22:00 03/15/19 21:13 Zetia PO 10 mg HS JUAQUIN Administration Epoetin [place] 20,000 unit 03/13/19 23:52 Procrit SUB-Q ANNI PRN hemodialysis Heparin Sodium (Porcine) 5,000 unit 02/25/19 22:00 03/16/19 07:19 Heparin SUB-Q 5,000 unit Q8HR JUAQUIN Administration Sodium Chloride 100 mls @ 999 mls/hr 03/09/19 17:42 Nacl 0.9% IV ANNI PRN Hypotension Vancomycin HCl 500 mg/ Sodium 110 mls @ 66.667 mls/hr 03/12/19 22:00 03/15/19 00:03 Chloride IV 03/19/19 23:38 66.667 mls/hr TuThSa JUAQUIN Administration Insulin Human Lispro 0 unit 03/09/19 15:00 03/15/19 23:47 Humalog SUB-Q Not Given Q4H [facility] Protocol Levothyroxine Sodium 50 mcg 02/26/19 06:00 03/16/19 07:19 Synthroid PO 50 mcg DAILY@0600 JUAQUIN Administration Magnesium Oxide 400 mg 03/13/19 09:30 03/15/19 08:50 Mag-Ox PO 400 mg QDAY JUAQUIN Administration Multivit/Ca Carb/B Cmplx/FA/Prenat 1 cap 02/27/19 08:00 03/15/19 08:50 Renal Caps PO 1 cap QDAY JUAQUIN Administration Ondansetron HCl 4 mg 03/06/19 02:49 Zofran IV Q8H PRN Nausea And Vomiting Oxycodone/Acetaminophen 1 tab 02/25/19 18:39 03/08/19 18:23 Percocet 5/325 PO 1 tab Q6H PRN Administration Pain, Moderate (4-6) Pantoprazole Sodium 40 mg 03/07/19 08:00 03/15/19 08:50 Protonix PO 40 mg QDAY JUAQUIN Administration Polyethylene Glycol 17 gm 03/12/19 11:00 03/15/19 08:50 Miralax 3350 PO 17 gm QDAY JUAQUIN Administration Pravastatin Sodium 40 mg 02/25/19 21:00 03/15/19 21:13 Pravachol PO 40 mg QHS JUAQUIN Administration Pregabalin 75 mg 02/25/19 22:00 03/15/19 21:14 Lyrica PO 75 mg HS JUAQUIN Administration Simethicone 80 mg 02/28/19 10:11 02/28/19 11:25 Mylicon PO 80 mg Q6H PRN Administration Gas pain
--- NOTE | 2019-03-16 09:26 | Progress Note ---
Subjective Date of service: 03/16/19 Principal diagnosis: R BKA Interval history: 78-year-old female with right foot pain presented to ER and found to have sepsis. Amputation was previously discussed for the right lower extremity gangrene however family refused. Patient had been undergoing treatment HBOT without resolution. ID was consulted and started antibiotics. Vascular surgery performed angiography. Afterwards she was scheduled for a right BKA which proceeded without incident. After the patient was medically stabilized they were transferred for further rehabilitation. All available medical records have been reviewed. Plan of care was discussed with patient and family. Patient is participating in therapy and making reasonable progress. Taking rest breaks as needed. +BM , monitor. GLU is improving, Appreciate hospitalist assistance. Monitor. Breathing improved with supplemental O2 and after dialysis, continue supplemental O2 with activity. Some phantom sensation but no overt phantom pain. Continue to work on transfers. Will need to practice car transfers with family prior to discharge. Discussed with patient that she will follow up with surgeon after discharge and he will schedule appt with Entry Level Chemist for prosthetic. Continue therapy as planned. No signs of infection in RLE. Continues vanc on dialysis days. All records, vitals, labs and medications were reviewed. No other issues per patient, nursing or therapy. Objective - Exam Narrative Exam: MUSCULOSKELETAL SPECIALTY EXAM CONSTITUTIONAL: Well developed, well nourished, appropriately groomed EENT: Legally blind. Oropharynx clear. RESPIRATORY: Clear to auscultation bilaterally, no increased work of breathing, no crackles. Supplemental O2. Exertional dyspnea noted CARDIOVASCULAR: Regular Rate/ Rhythm, no swelling, edema or tenderness in BUE or BLE. All extremities warm. Thrill in LUE GI: + bowel sounds, soft, nondistended. INTEGUMENTARY: normal, no lesion, rash, masses or bruising noted in extremities. Surgical wound on right lower extremity is healing well, no drainage or signs of infection MUSCULOSKELETAL: Right BKA, otherwise BUE and BLE normal without defect, crepitus, subluxation, effusion, arthritic changes or TTP. BUE 4/5, good ROM, with normal tone. LLE 4-/5 good ROM, with normal tone, RLE decreased ROM secondary to pain NEURO: CN 2-12 grossly intact. Sensation intact in all extremities. No tremor noted in 4 extremities. POSTURE and GAIT: Sitting posture good. Balance appears reasonable. Gait deferred, based on standing performance she may not be able to ambulate with just a walker without prosthesis. PSYCH: Alert, orientated x2, slightly confused at times and decreased memory, affect appears normal. - Constitutional Vitals: Vital Signs - 12hr 03/16/19 03/16/19 03:54 07:30 Temperature 36.8 C 36.4 C Pulse Rate 67 71 Respiratory 16 18 Rate Blood Pressure 158/68 Blood Pressure 152/67 [Right] O2 Sat by Pulse 100 100 Oximetry - Allied health notes Allied health notes reviewed: nursing, PT, ST, OT FIMS assessment as documented by PT/OT/ST: Grooming Patient cleans teeth/dentures: Yes Patient holguin/brushes hair: Yes Patient washes, rinses and Yes dries face: Patient washes, rinses and Yes dries hands: Patient shaves: No Patient applies make-up: No Patient performs (no make-up/ 12/04 (100%) shaving): Grooming FIM Score 5. Supervision ([facility] applies toothpaste or opens containers.) Toileting Toileting Device Bedpan Toileting FIM Score 2. Maximal Assistance (Patient = 25% or more) Social interaction/Memory/Problem solving Social Interaction FIM Score 7. Complete [place] (Interacts appropriately. Controls temper.) Memory FIM Score 4. Minimal Assistance (Recognizes and remembers 75-90%.) Problem Solving FIM Score 4. Minimal Assistance (Solves routine problems 75-90%.) Transfers Mode of Locomotion: Wheelchair Bed/Chair/Wheelchair Transfers 5. Supervision (Needs supv. or set-up for FIM Score sliding board, foot rests.) Toilet Transfers FIM Score 1. Total Assistance (Patient less than 25%. 2 or more persons.) Patient transferred to: Shower Shower Transfers FIM Score 3. Moderate Assistance (Patient = 50% or more. Some lifting.) Locomotion- Stairs Stairs FIM Score 0. Activity does not occur Locomotion- walk/wheelchair Most Frequent Mode of Wheelchair Locomotion: Ambulation Distance 0 Walking FIM Score 0. Activity does not occur Wheelchair Propulsion Distance 160 Wheelchair FIM Score 5. Supervision (Minimum 150 ft. supv./cues or 50 ft. independently.) Eating Eating FIM Score 5. Supervision/Set-Up (Needs help w/ containers, cutting meat, etc.) Dressing-Upper body Patient retrieves clothing No items: Patient applies/removes UE No: n/a prosthesis or orthosis: Upper Body Dressing FIM Score 5. Supv./Set-Up ([facility] sets out clothes or applies pros./orth.) Dressing-lower body Patient retrieves clothing No items: Patient applies/removes LE No: n/a prosthesis or orthosis: Lower Body Dressing FIM Score 4. Minimal Assistance (Patient = 75% or more. Needs touching.) - Labs CBC & Chem 7: 03/13/19 07:50 03/13/19 07:50 Labs: Laboratory Results - last 72 hr 03/13/19 03/13/19 03/13/19 11:59 16:30 20:26 POC Glucose 282 H 195 H 253 H 03/14/19 03/14/19 03/14/19 00:00 03:28 07:26 POC Glucose 185 H 158 H 146 H 03/14/19 03/14/19 03/14/19 11:26 16:13 20:54 POC Glucose 274 H 303 H 253 H 03/14/19 03/15/19 03/15/19 23:39 05:27 07:15 POC Glucose 183 H 146 H 137 H 03/15/19 03/15/19 03/15/19 11:37 16:02 21:24 POC Glucose 307 H 311 H 63 L 03/15/19 03/16/19 03/16/19 22:48 03:51 07:35 POC Glucose 83 116 H 92 Assessment and Plan R BKA: Will likely be a K1 ambulator, K2 not likely in reach at this point. After speaking with daughter, patient will most likely remain K1. Monitor wound. On isolation for MRSA in Blood with 4 weeks vancomycin during dialysis (03/19/2019 per ID notes). Continue to work on transfers and mobility. Monitor for phantom sensation/pain. Discussed prosthesis. Last blood culture was negative and patient remains on antibiotics with no excessive drainage from the wound. GILBERTO: Cont CPAP HTN: Monitor BP and adjust meds for normotension DM: Carb controlled diet. Monitor glucose. SSI. Insulin adjusted by IM Decreased memory: GROOVER [employer] TURNER to treat Hypothyroidism: Continue medication Z73.6 ADL dysfunction: OT will work on improving ability to perform ADLs (including assistive devices) to increase independence and decrease caregiver burden and improve functional transfers and mobility training. R26.2 Difficulty walking: PT will work on gait training and proper use of assistive devices and advance as appropriate to use of stairs and outside ambulation on uneven surfaces. R26.81 Unsteadiness on feet: PT will work on improving static and dynamic sitting and standing balance as well as proper use of assistive devices to decrease risk of falls. R26.89 Abnormality of gait: PT will work to improve safety and efficiency of gait through neuromotor training and gait training along with instruction on proper use of assistive devices. M62.81 Muscle weakness: PT & OT will work on strengthening exercises to improve functional strength including mixture of closed and open kinetic chain exercises. R53.81 Debility: PT & OT will work on improving overall functional status to improve participation with ADLs, mobility and social involvement. R53.83 Fatigue: PT & OT will work on improving endurance through aerobic exercises and therapeutic activity while monitoring patients tolerance for activity and vital signs as needed. Dyspnea - Supplemental O2 at night and whenever she is in therapy. Monitor frequently for s/s of dyspnea decreased O2 sats, fluid overloaded per nephrology Anemia - recheck CBC in AM , cont procrit per nephrology DVT ppx: heparin Pain: Continue physical modalities in therapy and pain medications as needed to achieve functional pain control. Sleep: Monitor and address as needed. Bowel: Monitor and address as needed. Appetite: Monitor and address as needed. Discharge planning: Plan to d/c Saturday 03/17. Will continue discussion with therapy team, SW, patient and family. Restrictions/ Precautions: Falls WB status: FWB Functional Hx: ADLs: Independent Cognition: Needed assistance Mobility: Cane and w/c for distance Barriers to Discharge: Decreased mobility and ability to perform self care, balance deficits, weakness, cognition, transfers Estimated Length of Stay: 14-18 days Discharge Destination: Home with family with supervision
--- NOTE | 2019-03-16 18:18 | Progress Note ---
Assessment and Plan Assessment and plan: Hospitalist risk and insurance consultant for DM in the Inpatient Rehab unit of [facility] Patient is a 78-year-old woman with a history of PVD, DM type 2, ESRD on hemodialysis, GERD, CVA, heart failure, hypertension, hypothyroidism, legally blind and GILBERTO who presented to [facility] inpatient rehab unit following right leg BKA. Hospitalist consulted and following for uncontrolled DM. 03/09/19 Blood glucose is very labile because patient has Brittle Diabetes Mellitus. Long acting insulin cause solution architect hypoglycemia; nonetheless, her blood sugars are very high during mealtime, so I will add fast acting insulin with meals and increase SSI to high dose protocol. Will continue to monitor CODE MET called, AMS/somnolent due to BG 27. Dextrose was to be given then she lost IV access, so I ordered Glucagon IM; however, she was waking up and drank OJ then IV re-established and she was given Dextrose IV and 1mg IM Glucagon. 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 Acute Metabolic Encephalopathy secondary to Hypoglycemia;Resolved Patient with very labile Blood glucose. She is not sure how much insulin she gets at home but states they use sliding scale. She will benefit from oral hypoglycemia agents as outpatient but i wonder if she has had bouts of hypoglycemia in the past. DM Type 2 with hyperglycemia, a1c 6.8: continue SSI monitor SOB with perihilar edema on 03/05/19 CXR: treated with HD and repeat CXR, shows improvement GILBERTO ON CPAP: Stable GERD: Famotidine ESRD: HD tts, Nephrology following HTN, controlled: low salt diet and treat with antihypertensives HX OF CVA: continue plavix, continue statin, ZETIA Hyperlipidemia: statin Hypothyrodisim: CONTINUE SYNTHROID Anemia: Monitor, on epogen DVT/GI prophylaxis History Interval history: Patient seen and examined, resting comfortable. no new complaints Hospitalist Physical - Physical exam Narrative exam: Gen: WDWN, NAD, Awake, Alert, Orientated HEENT: NCAT, EOMI, PERRL, OP Clear Neck: supple, no adenopathy, no thyromegaly, no JVD CVS/Heart: RRR, normal S1S2, pulses present bilaterally Chest/Lungs: CTA B, Symmetrical chest expansion, good air entry bilaterally GI/Abdomen: soft, NTND, good bowel sounds, no guarding or rebound /Bladder: no suprapubic tenderness, no CVA or paraspinal tenderness Extermity/Skin: no c/c/e,, excoriated skin rashes noted crusted over. MSK: FROM x 3, with right leg BKA mike removed, wound looks ok, Neuro: CN 2-12 grossly intact, no new focal deficits Psych: calm - Constitutional Vitals: Temp Pulse Resp BP Pulse Ox 98.0 F 67 18 135/61 96 03/16/19 16:54 03/16/19 16:54 03/16/19 16:54 03/16/19 16:54 03/16/19 16:54 General appearance: Present: no acute distress, well-nourished Results - Labs CBC & Chem 7: 03/13/19 07:50 03/13/19 07:50 Labs: Laboratory Last Values WBC 5.6 K/mm3 (4.5-11.0) 03/13/19 07:50 RBC 3.16 M/mm3 (3.65-5.03) L 03/13/19 07:50 Hgb 7.6 gm/dl (10.1-14.3) L 03/13/19 07:50 Hct 24.6 % (30.3-42.9) L 03/13/19 07:50 MCV 78 fl (79-97) L 03/13/19 07:50 MCH 24 pg (28-32) L 03/13/19 07:50 MCHC 31 % (30-34) 03/13/19 07:50 RDW 22.8 % (13.2-15.2) H 03/13/19 07:50 Plt Count 260 K/mm3 (140-440) 03/13/19 07:50 Lymph % (Auto) Adobe Architect 02/26/19 11:01 [place] % (Auto) Adobe Architect 02/26/19 11:01 Eos % (Auto) Adobe Architect 02/26/19 11:01 Baso % (Auto) Adobe Architect 02/26/19 11:01 Lymph # Adobe Architect 02/26/19 11:01 [place] # Adobe Architect 02/26/19 11:01 Eos # Adobe Architect 02/26/19 11:01 Baso # Adobe Architect 02/26/19 11:01 Add Manual Diff Complete 02/26/19 11:01 Total Counted 100 02/26/19 11:01 Seg Neutrophils % Adobe Architect 02/26/19 11:01 Seg Neuts % (Manual) 86.0 % (40.0-70.0) H 02/26/19 11:01 0 % 02/26/19 11:01 4.0 % (13.4-35.0) L 02/26/19 11:01 Reactive Lymphs % (Man) 0 % 02/26/19 11:01 9.0 % (0.0-7.3) H 02/26/19 11:01 1.0 % (0.0-4.3) 02/26/19 11:01 0 % (0.0-1.8) 02/26/19 11:01 0 % 02/26/19 11:01 0 % 02/26/19 11:01 0 % 02/26/19 11:01 0 % 02/26/19 11:01 Nucleated RBC % Not Reportable 02/26/19 11:01 Seg Neutrophils # Adobe Architect 02/26/19 11:01 Seg Neutrophils # Man 6.4 K/mm3 (1.8-7.7) 02/26/19 11:01 Band Neutrophils # 0.0 K/mm3 02/26/19 11:01 0.3 K/mm3 (1.2-5.4) L 02/26/19 11:01 Abs React Lymphs (Man) 0.0 K/mm3 02/26/19 11:01 0.7 K/mm3 (0.0-0.8) 02/26/19 11:01 0.1 K/mm3 (0.0-0.4) 02/26/19 11:01 0.0 K/mm3 (0.0-0.1) 02/26/19 11:01 0.0 K/mm3 02/26/19 11:01 0.0 K/mm3 02/26/19 11:01 0.0 K/mm3 02/26/19 11:01 Blast Cells # 0.0 K/mm3 02/26/19 11:01 WBC Morphology Not Reportable 02/26/19 11:01 Hypersegmented Neuts Not Reportable 02/26/19 11:01 Hyposegmented Neuts Not Reportable 02/26/19 11:01 Hypogranular Neuts Not Reportable 02/26/19 11:01 Not Reportable 02/26/19 11:01 Not Reportable 02/26/19 11:01 Not Reportable 02/26/19 11:01 Not Reportable 02/26/19 11:01 Not Reportable 02/26/19 11:01 Not Reportable 02/26/19 11:01 Consistent w auto 02/26/19 11:01 Not Reportable 02/26/19 11:01 Plt Clumps, EDTA Not Reportable 02/26/19 11:01 Not Reportable 02/26/19 11:01 Not Reportable 02/26/19 11:01 Not Reportable 02/26/19 11:01 Plt Morphology Comment Not Reportable 02/26/19 11:01 RBC Morphology Not Reportable 02/26/19 11:01 Dimorphic RBCs Not Reportable 02/26/19 11:01 Few 02/26/19 11:01 1+ 02/26/19 11:01 Not Reportable 02/26/19 11:01 1+ 02/26/19 11:01 Not Reportable 02/26/19 11:01 Not Reportable 02/26/19 11:01 Not Reportable 02/26/19 11:01 Not Reportable 02/26/19 11:01 Not Reportable 02/26/19 11:01 Few 02/26/19 11:01 Not Reportable 02/26/19 11:01 Few 02/26/19 11:01 Not Reportable 02/26/19 11:01 Not Reportable 02/26/19 11:01 Not Reportable 02/26/19 11:01 Not Reportable 02/26/19 11:01 Not Reportable 02/26/19 11:01 Not Reportable 02/26/19 11:01 Not Reportable 02/26/19 11:01 Acanthocytes (Spur) Not Reportable 02/26/19 11:01 Rouleaux Not Reportable 02/26/19 11:01 Not Reportable 02/26/19 11:01 Not Reportable 02/26/19 11:01 Not Reportable 02/26/19 11:01 Not Reportable 02/26/19 11:01 Hem Pathologist Commnt No 02/26/19 11:01 Sodium 134 mmol/L (137-145) L 03/13/19 07:50 Potassium 4.3 mmol/L (3.6-5.0) 03/13/19 07:50 Chloride 92.0 mmol/L (98-107) L 03/13/19 07:50 Carbon Dioxide 29 mmol/L (22-30) 03/13/19 07:50 17 mmol/L 03/13/19 07:50 BUN 18 mg/dL (7-17) H 03/13/19 07:50 3.8 mg/dL (0.7-1.2) H 03/13/19 07:50 Estimated GFR 14 ml/min 03/13/19 07:50 5 % 03/13/19 07:50 Glucose 149 mg/dL (65-100) H 03/13/19 07:50 POC Glucose 248 (70-105) H 03/16/19 16:59 6.8 % (4-6) H 03/08/19 05:03 Calcium 8.6 mg/dL (8.4-10.2) 03/13/19 07:50 Magnesium 1.50 mg/dL (1.7-2.3) L 03/13/19 07:50 0.40 mg/dL (0.1-1.2) 02/26/19 11:01 AST 32 units/L (5-40) 02/26/19 11:01 ALT 17 units/L (7-56) 02/26/19 11:01 382 units/L (35-129) H 02/26/19 11:01 5.7 g/dL (6.3-8.2) L 02/26/19 11:01 2.6 g/dL (3.9-5) L 02/26/19 11:01 0.8 % 02/26/19 11:01 Random Vancomycin 30.9 ug/mL (0-40.0) 03/10/19 07:48 Hepatitis A IgM Ab Non-reactive (NonReactive) 02/28/19 10:48 Hep Bs Antigen Non-reactive (Negative) 02/28/19 10:48 Hep B Core IgM Ab Non-reactive (NonReactive) 02/28/19 10:48 Non-reactive (NonReactive) 02/28/19 10:48 Active Medications - Current Medications Current Medications: Generic Name Dose Route Start Last Admin Trade Name Freq PRN Reason Stop Dose Admin Albuterol 2.5 mg 02/25/19 18:39 03/07/19 07:24 Proventil IH 2.5 mg Q4HRT PRN Administration Shortness Of Breath Amlodipine Besylate 5 mg 02/26/19 08:00 03/16/19 08:28 Norvasc PO 5 mg QDAY JUAQUIN Administration Aspirin 81 mg 02/26/19 08:00 03/16/19 08:27 Halfprin Ec PO 81 mg QDAY JUAQUIN Administration Bisacodyl 10 mg 03/07/19 15:19 Dulcolax DE QDAY PRN Constipation Calcium Acetate 667 mg 02/26/19 07:30 03/16/19 12:46 Phoslo PO 667 mg AC JUAQUIN Administration Clopidogrel Bisulfate 75 mg 02/26/19 08:00 03/16/19 08:27 Plavix PO 75 mg QDAY JUAQUIN Administration Dextrose 50 ml 03/03/19 16:04 03/09/19 07:48 D50w (25gm) Syringe IV 50 ml PRN PRN Administration Hypoglycemia Diphenhydramine HCl 25 mg 02/25/19 18:39 03/08/19 18:23 Benadryl PO 25 mg Q6H PRN Administration Itching Ezetimibe 10 mg 02/25/19 22:00 03/15/19 21:13 Zetia PO 10 mg HS JUAQUIN Administration Epoetin [place] 20,000 unit 03/13/19 23:52 Procrit SUB-Q ANNI PRN hemodialysis Heparin Sodium (Porcine) 5,000 unit 02/25/19 22:00 03/16/19 14:42 Heparin SUB-Q 5,000 unit Q8HR JUAQUIN Administration Sodium Chloride 100 mls @ 999 mls/hr 03/09/19 17:42 Nacl 0.9% IV ANNI PRN Hypotension Vancomycin HCl 500 mg/ Sodium 110 mls @ 66.667 mls/hr 03/12/19 22:00 03/15/19 00:03 Chloride IV 03/19/19 23:38 66.667 mls/hr TuThSa JUAQUIN Administration Insulin Human Lispro 0 unit 03/09/19 15:00 03/16/19 11:44 Humalog SUB-Q 3 unit Q4H JUAQUIN Administration Protocol Levothyroxine Sodium 50 mcg 02/26/19 06:00 03/16/19 07:19 Synthroid PO 50 mcg DAILY@0600 JUAQUIN Administration Magnesium Oxide 400 mg 03/13/19 09:30 03/16/19 08:27 Mag-Ox PO 400 mg QDAY JUAQUIN Administration Multivit/Ca Carb/B Cmplx/FA/Prenat 1 cap 02/27/19 08:00 03/16/19 08:27 Renal Caps PO 1 cap QDAY JUAQUIN Administration Ondansetron HCl 4 mg 03/06/19 02:49 Zofran IV Q8H PRN Nausea And Vomiting Oxycodone/Acetaminophen 1 tab 02/25/19 18:39 03/08/19 18:23 Percocet 5/325 PO 1 tab Q6H PRN Administration Pain, Moderate (4-6) Pantoprazole Sodium 40 mg 03/07/19 08:00 03/16/19 08:27 Protonix PO 40 mg QDAY JUAQUIN Administration Polyethylene Glycol 17 gm 03/12/19 11:00 03/16/19 08:37 Miralax 3350 PO Not Given QDAY JUAQUIN Pravastatin Sodium 40 mg 02/25/19 21:00 03/15/19 21:13 Pravachol PO 40 mg QHS JUAQUIN Administration Pregabalin 75 mg 02/25/19 22:00 03/15/19 21:14 Lyrica PO 75 mg HS JUAQUIN Administration Simethicone 80 mg 02/28/19 10:11 02/28/19 11:25 Mylicon PO 80 mg Q6H PRN Administration Gas pain Nutrition/Malnutrition Assess - Dietary Evaluation Nutrition/Malnutrition Findings: Nutrition Notes Start: 03/04/19 17:30 Freq: Status: Active Protocol: Document 03/04/19 17:30 RM (Rec: 03/04/19 17:31 RM [id number]) Nutrition Notes Need for Assessment generated from: LOS Initial or Follow up Brief Note Height 4 ft 11 in Weight 67.8 kg [place] Body Weight (kg) 43.18 BMI 30.2 Subjective/Other Information Screened for LOS. Recorded PO intake 81% X 4 meals. Nutrition Intervention Revisit per MD consult or patient Sign Off request:
[2019-03-16] MEDS: LYRICA PO SCH (22:37)
[2019-03-16] MEDS: PRAVACHOL PO SCH (22:37)
[2019-03-16] MEDS: ZETIA PO SCH (22:37)
[2019-03-17] MEDS: HumaLOG SUB-Q SCH ×7 (02:06→23:00)
[2019-03-17] MEDS: SYNTHROID PO SCH (07:45)
[2019-03-17] MEDS: HEPARIN SUB-Q SCH ×3 (08:22→21:36)
[2019-03-17 08:57] LABS: Hematocrit 24.1 % (30.3-42.9); Hemoglobin 7.6 gm/dl (10.1-14.3); Mean Corpuscular HGB Conc 31 % (30-34); Mean Corpuscular Volume 77 fl (79-97); Platelet Count 266 K/mm3 (140-440); Red Blood Count 3.11 M/mm3 (3.65-5.03)
[2019-03-17 09:14] LABS: Red Cell Distribution Width 22.4 % (13.2-15.2)
[2019-03-17] MEDS: NORVASC PO SCH (09:18)
[2019-03-17] MEDS: HALFPRIN EC PO SCH (09:18)
[2019-03-17] MEDS: Renal Caps PO SCH (09:18)
[2019-03-17] MEDS: PHOSLO PO SCH ×3 (09:18→18:25)
[2019-03-17] MEDS: PROTONIX PO SCH (09:18)
[2019-03-17] MEDS: MAG-OX PO SCH (09:18)
[2019-03-17] MEDS: PLAVIX PO SCH (09:18)
[2019-03-17 09:23] LABS: Albumin 3.1 g/dL (3.9-5); Calcium 9.1 mg/dL (8.4-10.2)
[2019-03-17] MEDS: MIRALAX 3350 PO SCH (09:23)
--- NOTE | 2019-03-17 10:01 | Progress Note ---
Assessment and Plan 1. ESRD: Continue hemodialysis three times a week, TTS schedule. 2. FEN: Volume overload, mostly improved. Advised to limit fluid intake. Hyperkalemia, improved. 3. Anemia: Epogen with HD. Monitor H/H. 4. PAD: S/p R LE angioplasty and R BKA. 5. GILBERTO: CPAP. 6. DM type 2. 7. HTN: BP well controlled. In Acute rehab unit. D/c tomorrow. Subjective Date of service: 03/17/19 Principal diagnosis: R BKA Interval history: Patient was seen and examined at the bedside. Doing ok. Objective - Vital Signs Vital signs: Vital Signs - 12hr 03/16/19 03/17/19 03/17/19 22:29 03:58 08:59 Temperature 97.6 F 97.8 F 97.7 F Pulse Rate 61 69 74 Respiratory 16 17 16 Rate Blood Pressure Blood Pressure 131/64 139/57 138/58 [Right] O2 Sat by Pulse 92 94 97 Oximetry 03/17/19 09:18 Temperature Pulse Rate 69 Respiratory Rate Blood Pressure 139/57 Blood Pressure [Right] O2 Sat by Pulse Oximetry - General Appearance General appearance: well-developed, well-nourished, appears stated age, other (no distress) EENT: ATNC, PERRL, mucous membranes moist, hearing diminished Neck: supple Respiratory: Present: Clear to Ascultation Cardiology: regular, S1S2, no murmurs Gastrointestinal: normoactive bowel sounds, no tenderness, no distended Integumentary: no rash, warm and dry Neurologic: no asterixis, alert and oriented x3 Musculoskeletal: other (trace L LE edema, L arm AVF, R BKA) Psychiatric: cooperative - Lab 03/17/19 08:41 03/17/19 08:41 Most recent lab results Calcium 9.1 mg/dL (8.4-10.2) 03/17/19 08:41 Magnesium 1.90 mg/dL (1.7-2.3) 03/17/19 08:41 Medications & Allergies - Medications Allergies/Adverse Reactions: Allergies Iodinated Contrast- Oral and IV Dye Allergy (Verified 11/25/18 15:48) Hives, Rash Penicillins Allergy (Verified 11/25/18 15:48) Hives Home Medications: Home Medications Medication Instructions Recorded Confirmed Last Taken Type Aspirin EC 81 mg PO QDAY #30 tablet 03/17/19 Unknown Rx Calcium Acetate [Phoslo] 667 mg PO AC #90 capsule 03/17/19 Unknown Rx Clopidogrel [Plavix] 75 mg PO QDAY #30 tablet 03/17/19 Unknown Rx Epoetin [place] 20,000 Unit [Procrit] 20,000 unit SUB-Q ANNI PRN vial 03/17/19 Unknown Rx Ezetimibe [Zetia] 10 mg PO HS #30 tablet 03/17/19 Unknown Rx Folic Acid/Vit B Comp W-C [Renal 1 cap PO QDAY #30 capsule 03/17/19 Unknown Rx Caps] Levothyroxine [Synthroid] 50 mcg PO DAILY@0600 #30 tablet 03/17/19 Unknown Rx Lispro Insulin [HumaLOG] 0 unit SUB-Q Q4H 30 Days units 03/17/19 Unknown Rx Magnesium Oxide [Mag-Ox] 400 mg PO QDAY #30 tablet 03/17/19 Unknown Rx Pantoprazole [Protonix TAB] 40 mg PO QDAY #30 tablet 03/17/19 Unknown Rx Pravastatin [Pravachol] 40 mg PO QHS #30 tablet 03/17/19 Unknown Rx Pregabalin [Lyrica] 75 mg PO HS #30 capsule 03/17/19 Unknown Rx amLODIPine [Norvasc] 5 mg PO QDAY #30 tablet 03/17/19 Unknown Rx Active Medications: Generic Name Dose Route Start Last Admin Trade Name Freq PRN Reason Stop Dose Admin Albuterol 2.5 mg 02/25/19 18:39 03/07/19 07:24 Proventil IH 2.5 mg Q4HRT PRN Administration Shortness Of Breath Amlodipine Besylate 5 mg 02/26/19 08:00 03/17/19 09:18 Norvasc PO 5 mg QDAY JUAQUIN Administration Aspirin 81 mg 02/26/19 08:00 03/17/19 09:18 Halfprin Ec PO 81 mg QDAY JUAQUIN Administration Bisacodyl 10 mg 03/07/19 15:19 Dulcolax [place] QDAY PRN Constipation Calcium Acetate 667 mg 02/26/19 07:30 03/17/19 09:18 Phoslo PO 667 mg AC JUAQUIN Administration Clopidogrel Bisulfate 75 mg 02/26/19 08:00 03/17/19 09:18 Plavix PO 75 mg QDAY JUAQUIN Administration Dextrose 50 ml 03/03/19 16:04 03/09/19 07:48 D50w (25gm) Syringe IV 50 ml PRN PRN Administration Hypoglycemia Diphenhydramine HCl 25 mg 02/25/19 18:39 03/08/19 18:23 Benadryl PO 25 mg Q6H PRN Administration Itching Ezetimibe 10 mg 02/25/19 22:00 03/16/19 22:37 Zetia PO 10 mg HS JUAQUIN Administration Epoetin [place] 20,000 unit 03/13/19 23:52 Procrit SUB-Q ANNI PRN hemodialysis Heparin Sodium (Porcine) 5,000 unit 02/25/19 22:00 03/17/19 08:22 Heparin SUB-Q 5,000 unit Q8HR JUAQUIN Administration Sodium Chloride 100 mls @ 999 mls/hr 03/09/19 17:42 Nacl 0.9% IV ANNI PRN Hypotension Vancomycin HCl 500 mg/ Sodium 110 mls @ 66.667 mls/hr 03/12/19 22:00 03/15/19 00:03 Chloride IV 03/19/19 23:38 66.667 mls/hr TuThSa JUAQUIN Administration Insulin Human Lispro 0 unit 03/09/19 15:00 03/17/19 09:18 Humalog SUB-Q 2 unit Q4H JUAQUIN Administration Protocol Levothyroxine Sodium 50 mcg 02/26/19 06:00 03/17/19 07:45 Synthroid PO 50 mcg DAILY@0600 JUAQUIN Administration Magnesium Oxide 400 mg 03/13/19 09:30 03/17/19 09:18 Mag-Ox PO 400 mg QDAY JUAQUIN Administration Multivit/Ca Carb/B Cmplx/FA/Prenat 1 cap 02/27/19 08:00 03/17/19 09:18 Renal Caps PO 1 cap QDAY JUAQUIN Administration Ondansetron HCl 4 mg 03/06/19 02:49 Zofran IV Q8H PRN Nausea And Vomiting Oxycodone/Acetaminophen 1 tab 02/25/19 18:39 03/08/19 18:23 Percocet 5/325 PO 1 tab Q6H PRN Administration Pain, Moderate (4-6) Pantoprazole Sodium 40 mg 03/07/19 08:00 03/17/19 09:18 Protonix PO 40 mg QDAY JUAQUIN Administration Polyethylene Glycol 17 gm 03/12/19 11:00 03/17/19 09:23 Miralax 3350 PO Not Given QDAY JUAQUIN Pravastatin Sodium 40 mg 02/25/19 21:00 03/16/19 22:37 Pravachol PO 40 mg QHS JUAQUIN Administration Pregabalin 75 mg 02/25/19 22:00 03/16/19 22:37 Lyrica PO 75 mg HS JUAQUIN Administration Simethicone 80 mg 02/28/19 10:11 02/28/19 11:25 Mylicon PO 80 mg Q6H PRN Administration Gas pain
--- NOTE | 2019-03-17 14:02 | Progress Note ---
Subjective Date of service: 03/17/19 Principal diagnosis: R BKA Interval history: 78-year-old female with right foot pain presented to ER and found to have sepsis. Amputation was previously discussed for the right lower extremity gangrene however family refused. Patient had been undergoing treatment HBOT without resolution. ID was consulted and started antibiotics. Vascular surgery performed angiography. Afterwards she was scheduled for a right BKA which proceeded without incident. After the patient was medically stabilized they were transferred for further rehabilitation. All available medical records have been reviewed. Plan of care was discussed with patient and family. Patient is participating in therapy and making reasonable progress. Taking rest breaks as needed. +BM , monitor. GLU is improving, Appreciate hospitalist assistance. Monitor. Breathing improved with supplemental O2 and after dialysis, continue supplemental O2 with activity. Some phantom sensation but no overt phantom pain. Continue to work on transfers. Family training went well, car transfers were successful. Discussed with patient that she will follow up with surgeon after discharge and he will schedule appt with [employer] for prosthetic. Continue therapy as planned. No signs of infection in RLE. Continues vanc on dialysis days - last day 03/19. Discussed in Team Conference. Ready for d/c tomorrow. HD set up. W/C and 3 in 1 ordered along with PT/OT/ nursing. All records, vitals, labs and medications were reviewed. No other issues per patient, nursing or therapy. Objective - Exam Narrative Exam: MUSCULOSKELETAL SPECIALTY EXAM CONSTITUTIONAL: Well developed, well nourished, appropriately groomed RESPIRATORY: Clear to auscultation bilaterally, no increased work of breathing, no crackles. Supplemental O2. Exertional dyspnea noted CARDIOVASCULAR: Regular Rate/ Rhythm, no swelling, edema or tenderness in BUE or BLE. All extremities warm. Thrill in LUE GI: + bowel sounds, soft, nondistended. INTEGUMENTARY: normal, no lesion, rash, masses or bruising noted in extremities. Surgical wound on right lower extremity is healing well, no drainage or signs of infection MUSCULOSKELETAL: Right BKA, otherwise BUE and BLE normal without defect, crepitus, subluxation, effusion, arthritic changes or TTP. BUE 4/5, good ROM, with normal tone. LLE 4-/5 good ROM, with normal tone, RLE decreased ROM secondary to pain NEURO: CN 2-12 grossly intact. Sensation intact in all extremities. No tremor noted in 4 extremities. POSTURE and GAIT: Sitting posture good. Balance appears reasonable. Gait deferred, based on standing performance she may not be able to ambulate with just a walker without prosthesis. PSYCH: Alert, orientated x2, slightly confused at times and decreased memory, affect appears normal. - Constitutional Vitals: Vital Signs - 12hr 03/17/19 03/17/19 03/17/19 03:58 08:59 09:18 Temperature 36.6 C 36.5 C Pulse Rate 69 74 69 Respiratory 17 16 Rate Respiratory Rate [Left Leg] Blood Pressure 139/57 Blood Pressure 139/57 138/58 [Right] O2 Sat by Pulse 94 97 Oximetry 03/17/19 03/17/19 03/17/19 10:00 12:24 12:45 Temperature 36.4 C L 36.4 C L Pulse Rate 72 68 Respiratory 16 16 Rate Respiratory 16 Rate [Left Leg] Blood Pressure 129/60 Blood Pressure 132/53 [Right] O2 Sat by Pulse 99 Oximetry 03/17/19 03/17/19 03/17/19 13:00 13:15 13:30 Temperature Pulse Rate 68 68 64 Respiratory Rate Respiratory Rate [Left Leg] Blood Pressure 129/60 127/69 121/52 Blood Pressure [Right] O2 Sat by Pulse Oximetry 03/17/19 13:45 Temperature Pulse Rate 66 Respiratory Rate Respiratory Rate [Left Leg] Blood Pressure 119/56 Blood Pressure [Right] O2 Sat by Pulse Oximetry - Allied health notes Allied health notes reviewed: nursing, PT, ST, OT FIMS assessment as documented by PT/OT/ST: Grooming Patient cleans teeth/dentures: Yes Patient holguin/brushes hair: Yes Patient washes, rinses and Yes dries face: Patient washes, rinses and Yes dries hands: Patient shaves: No Patient applies make-up: No Patient performs (no make-up/ / (100%) shaving): Grooming FIM Score 5. Supervision (Garrett applies toothpaste or opens containers.) Toileting Toileting Device Bedpan Toileting FIM Score 2. Maximal Assistance (Patient = 25% or more) Social interaction/Memory/Problem solving Social Interaction FIM Score 7. Complete [place] (Interacts appropriately. Controls temper.) Memory FIM Score 4. Minimal Assistance (Recognizes and remembers 75-90%.) Problem Solving FIM Score 5. Supervision (Needs cueing <10% to solve routine problems.) Transfers Mode of Locomotion: Wheelchair Bed/Chair/Wheelchair Transfers 5. Supervision (Needs supv. or set-up for FIM Score sliding board, foot rests.) Toilet Transfers FIM Score 2. Maximal Assistance (Patient = 25% or more) Patient transferred to: Shower Shower Transfers FIM Score 3. Moderate Assistance (Patient = 50% or more. Some lifting.) Locomotion- Stairs Stairs FIM Score 0. Activity does not occur Locomotion- walk/wheelchair Most Frequent Mode of Wheelchair Locomotion: Ambulation Distance 0 Walking FIM Score 0. Activity does not occur Wheelchair Propulsion Distance 150 Wheelchair FIM Score 5. Supervision (Minimum 150 ft. supv./cues or 50 ft. independently.) Eating Eating FIM Score 5. Supervision/Set-Up (Needs help w/ containers, cutting meat, etc.) Dressing-Upper body Patient retrieves clothing No items: Patient applies/removes UE No: n/a prosthesis or orthosis: Upper Body Dressing FIM Score 5. Supv./Set-Up (Garrett sets out clothes or applies pros./orth.) Dressing-lower body Patient retrieves clothing No items: Patient applies/removes LE No: n/a prosthesis or orthosis: Lower Body Dressing FIM Score 4. Minimal Assistance (Patient = 75% or more. Needs touching.) - Labs CBC & Chem 7: 03/17/19 08:41 03/17/19 08:41 Labs: Laboratory Results - last 72 hr 03/14/19 03/14/19 03/14/19 16:13 20:54 23:39 WBC RBC Hgb Hct MCV MCH MCHC RDW Plt Count Sodium Potassium Chloride Carbon Dioxide Anion Gap BUN Creatinine Estimated GFR BUN/Creatinine Ratio Glucose POC Glucose 303 H 253 H 183 H Calcium Magnesium Total Bilirubin AST ALT Alkaline Phosphatase Total Protein Albumin Albumin/Globulin Ratio 03/15/19 03/15/19 03/15/19 05:27 07:15 11:37 WBC RBC Hgb Hct MCV MCH MCHC RDW Plt Count Sodium Potassium Chloride Carbon Dioxide Anion Gap BUN Creatinine Estimated GFR BUN/Creatinine Ratio Glucose POC Glucose 146 H 137 H 307 H Calcium Magnesium Total Bilirubin AST ALT Alkaline Phosphatase Total Protein Albumin Albumin/Globulin Ratio 03/15/19 03/15/19 03/15/19 16:02 21:24 22:48 WBC RBC Hgb Hct MCV MCH MCHC RDW Plt Count Sodium Potassium Chloride Carbon Dioxide Anion Gap BUN Creatinine Estimated GFR BUN/Creatinine Ratio Glucose POC Glucose 311 H 63 L 83 Calcium Magnesium Total Bilirubin AST ALT Alkaline Phosphatase Total Protein Albumin Albumin/Globulin Ratio 03/16/19 03/16/19 03/16/19 03:51 07:35 12:18 WBC RBC Hgb Hct MCV MCH MCHC RDW Plt Count Sodium Potassium Chloride Carbon Dioxide Anion Gap BUN Creatinine Estimated GFR BUN/Creatinine Ratio Glucose POC Glucose 116 H 92 249 H Calcium Magnesium Total Bilirubin AST ALT Alkaline Phosphatase Total Protein Albumin Albumin/Globulin Ratio 03/16/19 03/16/19 03/17/19 16:59 21:17 03:48 WBC RBC Hgb Hct MCV MCH MCHC RDW Plt Count Sodium Potassium Chloride Carbon Dioxide Anion Gap BUN Creatinine Estimated GFR BUN/Creatinine Ratio Glucose POC Glucose 248 H 292 H 187 H Calcium Magnesium Total Bilirubin AST ALT Alkaline Phosphatase Total Protein Albumin Albumin/Globulin Ratio 03/17/19 03/17/19 03/17/19 08:41 08:41 09:01 WBC 6.6 RBC 3.11 L Hgb 7.6 L Hct 24.1 L MCV 77 L MCH 24 L MCHC 31 RDW 22.4 H Plt Count 266 Sodium 135 L Potassium 4.6 Chloride 94.5 L Carbon Dioxide 25 Anion Gap 20 BUN 39 H Creatinine 6.6 H D Estimated GFR 7 BUN/Creatinine Ratio 6 Glucose 158 H POC Glucose 166 H Calcium 9.1 Magnesium 1.90 Total Bilirubin 0.40 AST 14 ALT 10 Alkaline Phosphatase 221 H Total Protein 6.7 Albumin 3.1 L Albumin/Globulin Ratio 0.9 03/17/19 12:28 WBC RBC Hgb Hct MCV MCH MCHC RDW Plt Count Sodium Potassium Chloride Carbon Dioxide Anion Gap BUN Creatinine Estimated GFR BUN/Creatinine Ratio Glucose POC Glucose 204 H Calcium Magnesium Total Bilirubin AST ALT Alkaline Phosphatase Total Protein Albumin Albumin/Globulin Ratio Assessment and Plan R BKA: Will likely be a K1 ambulator, K2 not likely in reach at this point. After speaking with daughter, patient will most likely remain K1. Monitor wound. On isolation for MRSA in Blood with 4 weeks vancomycin during dialysis (03/19/2019 per ID notes). Continue to work on transfers and mobility. Monitor for phantom sensation/pain. Discussed prosthesis. Last blood culture was negative and patient remains on antibiotics with no excessive drainage from the wound. GILBERTO: Cont CPAP HTN: Monitor BP and adjust meds for normotension DM: Carb controlled diet. Monitor glucose. SSI. Insulin adjusted by IM Decreased memory: [employer] to treat Hypothyroidism: Continue medication Z73.6 ADL dysfunction: OT will work on improving ability to perform ADLs (including assistive devices) to increase independence and decrease caregiver burden and improve functional transfers and mobility training. R26.2 Difficulty walking: PT will work on gait training and proper use of assistive devices and advance as appropriate to use of stairs and outside ambulation on uneven surfaces. R26.81 Unsteadiness on feet: PT will work on improving static and dynamic sitting and standing balance as well as proper use of assistive devices to decrease risk of falls. R26.89 Abnormality of gait: PT will work to improve safety and efficiency of gait through neuromotor training and gait training along with instruction on proper use of assistive devices. M62.81 Muscle weakness: PT & OT will work on strengthening exercises to improve functional strength including mixture of closed and open kinetic chain exercises. R53.81 Debility: PT & OT will work on improving overall functional status to improve participation with ADLs, mobility and social involvement. R53.83 Fatigue: PT & OT will work on improving endurance through aerobic exercises and therapeutic activity while monitoring patients tolerance for activity and vital signs as needed. Dyspnea - Supplemental O2 at night and whenever she is in therapy. Monitor frequently for s/s of dyspnea decreased O2 sats, fluid overloaded per nephrology Anemia - recheck CBC in AM , cont procrit per nephrology DVT ppx: heparin Pain: Continue physical modalities in therapy and pain medications as needed to achieve functional pain control. Sleep: Monitor and address as needed. Bowel: Monitor and address as needed. Appetite: Monitor and address as needed. Discharge planning: Plan to d/c Sunday 03/18. Will continue discussion with therapy team, SW, patient and family. Restrictions/ Precautions: Falls WB status: FWB Functional Hx: ADLs: Independent Cognition: Needed assistance Mobility: Cane and w/c for distance Barriers to Discharge: Decreased mobility and ability to perform self care, balance deficits, weakness, cognition, transfers Estimated Length of Stay: 14-18 days Discharge Destination: Home with family with supervision
[2019-03-17] MEDS: VANCOMYCIN 500 MG in NACL 0.9% 100 ML IV SCH (21:35)
[2019-03-17] MEDS: LYRICA PO SCH (21:35)
[2019-03-17] MEDS: ZETIA PO SCH (21:35)
[2019-03-17] MEDS: PRAVACHOL PO SCH (21:35)
[2019-03-18] MEDS: HumaLOG SUB-Q SCH ×2 (03:00→08:30)
[2019-03-18] MEDS: HEPARIN SUB-Q SCH (05:17)
[2019-03-18] MEDS: SYNTHROID PO SCH (05:17)
[2019-03-18] MEDS: NORVASC PO SCH (08:27)
[2019-03-18] MEDS: PLAVIX PO SCH (08:27)
[2019-03-18] MEDS: PROTONIX PO SCH (08:30)
[2019-03-18] MEDS: Renal Caps PO SCH (08:30)
[2019-03-18] MEDS: MAG-OX PO SCH (08:30)
[2019-03-18] MEDS: PHOSLO PO SCH (08:30)
[2019-03-18] MEDS: HALFPRIN EC PO SCH (08:30)
[2019-03-18] MEDS: MIRALAX 3350 PO SCH (08:33)
--- NOTE | 2019-03-18 09:20 | Progress Note ---
Assessment and Plan 1. ESRD: Continue hemodialysis three times a week, TTS schedule. 2. FEN: Volume overload, mostly improved. Advised to limit fluid intake. Hyperkalemia, improved. 3. Anemia: Epogen with HD. Monitor H/H. 4. PAD: S/p R LE angioplasty and R BKA. 5. GILBERTO: CPAP. 6. DM type 2. 7. HTN: BP well controlled. In Acute rehab unit. Patient is going home today. Subjective Date of service: 03/18/19 Principal diagnosis: R BKA Interval history: Patient was seen and examined at the bedside. Doing ok. Objective - Vital Signs Vital signs: Vital Signs - 12hr 03/18/19 03/18/19 04:11 07:38 Temperature 98.0 F 97.6 F Pulse Rate 72 72 Respiratory 20 20 Rate Blood Pressure 121/55 131/54 O2 Sat by Pulse 100 99 Oximetry - General Appearance General appearance: well-developed, well-nourished, appears stated age, other (no distress) EENT: ATNC, PERRL, hearing diminished Neck: no JVD, supple Respiratory: Present: Clear to Ascultation Cardiology: regular, S1S2, no murmurs Gastrointestinal: normoactive bowel sounds, no tenderness, no distended Integumentary: no rash, warm and dry Neurologic: no asterixis, alert and oriented x3 Musculoskeletal: other (R BKA, no edema, L arm AVF) Psychiatric: cooperative - Lab 03/17/19 08:41 03/17/19 08:41 Most recent lab results Calcium 9.1 mg/dL (8.4-10.2) 03/17/19 08:41 Magnesium 1.90 mg/dL (1.7-2.3) 03/17/19 08:41 Medications & Allergies - Medications Allergies/Adverse Reactions: Allergies Iodinated Contrast- Oral and IV Dye Allergy (Verified 11/25/18 15:48) Hives, Rash Penicillins Allergy (Verified 11/25/18 15:48) Hives Home Medications: Home Medications Medication Instructions Recorded Confirmed Last Taken Type Aspirin EC 81 mg PO QDAY #30 tablet 03/17/19 Unknown Rx Calcium Acetate [Phoslo] 667 mg PO AC #90 capsule 03/17/19 Unknown Rx Clopidogrel [Plavix] 75 mg PO QDAY #30 tablet 03/17/19 Unknown Rx Epoetin [place] 20,000 Unit [Procrit] 20,000 unit SUB-Q ANNI PRN vial 03/17/19 Unknown Rx Ezetimibe [Zetia] 10 mg PO HS #30 tablet 03/17/19 Unknown Rx Folic Acid/Vit B Comp W-C [Renal 1 cap PO QDAY #30 capsule 03/17/19 Unknown Rx Caps] Levothyroxine [Synthroid] 50 mcg PO DAILY@0600 #30 tablet 03/17/19 Unknown Rx Lispro Insulin [HumaLOG] 0 unit SUB-Q Q4H 30 Days units 03/17/19 Unknown Rx Magnesium Oxide [Mag-Ox] 400 mg PO QDAY #30 tablet 03/17/19 Unknown Rx Pantoprazole [Protonix TAB] 40 mg PO QDAY #30 tablet 03/17/19 Unknown Rx Pravastatin [Pravachol] 40 mg PO QHS #30 tablet 03/17/19 Unknown Rx Pregabalin [Lyrica] 75 mg PO HS #30 capsule 03/17/19 Unknown Rx amLODIPine [Norvasc] 5 mg PO QDAY #30 tablet 03/17/19 Unknown Rx Active Medications: Generic Name Dose Route Start Last Admin Trade Name Freq PRN Reason Stop Dose Admin Albuterol 2.5 mg 02/25/19 18:39 03/07/19 07:24 Proventil IH 2.5 mg Q4HRT PRN Administration Shortness Of Breath Amlodipine Besylate 5 mg 02/26/19 08:00 03/18/19 08:27 Norvasc PO 5 mg QDAY JUAQUIN Administration Aspirin 81 mg 02/26/19 08:00 03/18/19 08:30 Halfprin Ec PO 81 mg QDAY JUAQUIN Administration Bisacodyl 10 mg 03/07/19 15:19 Dulcolax [place] QDAY PRN Constipation Calcium Acetate 667 mg 02/26/19 07:30 03/18/19 08:30 Phoslo PO 667 mg AC JUAQUIN Administration Clopidogrel Bisulfate 75 mg 02/26/19 08:00 03/18/19 08:27 Plavix PO 75 mg QDAY JUAQUIN Administration Dextrose 50 ml 03/03/19 16:04 03/09/19 07:48 D50w (25gm) Syringe IV 50 ml PRN PRN Administration Hypoglycemia Diphenhydramine HCl 25 mg 02/25/19 18:39 03/08/19 18:23 Benadryl PO 25 mg Q6H PRN Administration Itching Ezetimibe 10 mg 02/25/19 22:00 03/17/19 21:35 Zetia PO 10 mg HS JUAQUIN Administration Epoetin [place] 20,000 unit 03/13/19 23:52 03/17/19 14:12 Procrit SUB-Q 20,000 unit ANNI PRN Administration hemodialysis Heparin Sodium (Porcine) 5,000 unit 02/25/19 22:00 03/18/19 05:17 Heparin SUB-Q 5,000 unit Q8HR JUAQUIN Administration Sodium Chloride 100 mls @ 999 mls/hr 03/09/19 17:42 Nacl 0.9% IV ANNI PRN Hypotension Vancomycin HCl 500 mg/ Sodium 110 mls @ 66.667 mls/hr 03/12/19 22:00 03/17/19 21:35 Chloride IV 03/19/19 23:38 66.667 mls/hr TuThSa JUAQUIN Administration Insulin Human Lispro 0 unit 03/09/19 15:00 03/18/19 08:30 Humalog SUB-Q Not Given Q4H [facility] Protocol Levothyroxine Sodium 50 mcg 02/26/19 06:00 03/18/19 05:17 Synthroid PO 50 mcg DAILY@0600 [facility] Administration Magnesium Oxide 400 mg 03/13/19 09:30 03/18/19 08:30 Mag-Ox PO 400 mg QDAY [facility] Administration Multivit/Ca Carb/B Cmplx/FA/Prenat 1 cap 02/27/19 08:00 03/18/19 08:30 Renal Caps PO 1 cap QDAY [facility] Administration Ondansetron HCl 4 mg 03/06/19 02:49 Zofran IV Q8H PRN Nausea And Vomiting Oxycodone/Acetaminophen 1 tab 02/25/19 18:39 03/08/19 18:23 Percocet 5/325 PO 1 tab Q6H PRN Administration Pain, Moderate (4-6) Pantoprazole Sodium 40 mg 03/07/19 08:00 03/18/19 08:30 Protonix PO 40 mg QDAY [facility] Administration Polyethylene Glycol 17 gm 03/12/19 11:00 03/18/19 08:33 Miralax 3350 PO Not Given QDAY JUAQUIN Pravastatin Sodium 40 mg 02/25/19 21:00 03/17/19 21:35 Pravachol PO 40 mg QHS JUAQUIN Administration Pregabalin 75 mg 02/25/19 22:00 03/17/19 21:35 Lyrica PO 75 mg HS JUAQUIN Administration Simethicone 80 mg 02/28/19 10:11 02/28/19 11:25 Mylicon PO 80 mg Q6H PRN Administration Gas pain
[2019-03-18 12:22] VITALS: BP 114/50
--- NOTE | 2019-03-18 13:51 | Progress Note ---
Assessment and Plan Assessment and plan: Hospitalist storage consultant for DM in the Inpatient Rehab unit of [facility] Patient is a 78-year-old woman with a history of PVD, DM type 2, ESRD on hemodialysis, GERD, CVA, heart failure, hypertension, hypothyroidism, legally blind and GILBERTO who presented to [facility] inpatient rehab unit following right leg BKA. Hospitalist consulted and following for uncontrolled DM. 03/09/19 Blood glucose is very labile because patient has Brittle Diabetes Mellitus. 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 Will continue to monitor CODE MET called, AMS/somnolent due to BG 27. Dextrose was to be given then she lost IV access, so I ordered Glucagon IM; however, she was waking up and drank OJ then IV re-established and she was given Dextrose IV and 1mg IM Glucagon. 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 Acute Metabolic Encephalopathy secondary to Hypoglycemia;Resolved Patient with very labile Blood glucose. She is not sure how much insulin she gets at home but states they use sliding scale. She will benefit from oral hypoglycemia agents as outpatient but i wonder if she has had bouts of hypoglycemia in the past. DM Type 2 with hyperglycemia, a1c 6.8: continue SSI monitor SOB with perihilar edema on 03/05/19 CXR: treated with HD and repeat CXR, shows improvement GILBERTO ON CPAP: Stable GERD: Famotidine ESRD: HD tts, Nephrology following HTN, controlled: low salt diet and treat with antihypertensives HX OF CVA: continue plavix, continue statin, ZETIA Hyperlipidemia: statin Hypothyrodisim: CONTINUE SYNTHROID Anemia: Monitor, on epogen DVT/GI prophylaxis History Interval history: Patient was seen and evaluated this morning, patient is off oxygen and doing better. Hospitalist Physical - Physical exam Narrative exam: Not in cardiopulmonary distress. The patient appeared well nourished and normally developed. Vital signs as documented. Head exam is unremarkable. No scleral icterus . Neck is without jugular venous distension, thyromegaly, or carotid bruits. Lungs are clear to auscultation. Cardiac exam reveals regular rate and Rhythm. First and second heart sounds normal. No murmurs, rubs or gallops. Abdominal exam reveals normal bowel sounds, no masses, no organomegaly and no aortic enlargement. Extremities right BKA. 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 No focal weakness. - Constitutional Vitals: Temp Pulse Resp BP Pulse Ox 98.4 F 73 18 114/50 99 03/18/19 12:00 03/18/19 12:00 03/18/19 12:00 03/18/19 12:00 03/18/19 07:38 General appearance: Present: no acute distress, well-nourished Results - Labs CBC & Chem 7: 03/17/19 08:41 03/17/19 08:41 Labs: Laboratory Last Values WBC 6.6 K/mm3 (4.5-11.0) 03/17/19 08:41 RBC 3.11 M/mm3 (3.65-5.03) L 03/17/19 08:41 Hgb 7.6 gm/dl (10.1-14.3) L 03/17/19 08:41 Hct 24.1 % (30.3-42.9) L 03/17/19 08:41 MCV 77 fl (79-97) L 03/17/19 08:41 MCH 24 pg (28-32) L 03/17/19 08:41 MCHC 31 % (30-34) 03/17/19 08:41 RDW 22.4 % (13.2-15.2) H 03/17/19 08:41 Plt Count 266 K/mm3 (140-440) 03/17/19 08:41 Lymph % (Auto) Manager Construction 02/26/19 11:01 [place] % (Auto) Manager Construction 02/26/19 11:01 Eos % (Auto) Manager Construction 02/26/19 11:01 Baso % (Auto) Manager Construction 02/26/19 11:01 Lymph # Manager Construction 02/26/19 11:01 [place] # Manager Construction 02/26/19 11:01 Eos # Manager Construction 02/26/19 11:01 Baso # Manager Construction 02/26/19 11:01 Add Manual Diff Complete 02/26/19 11:01 Total Counted 100 02/26/19 11:01 Seg Neutrophils % Manager Construction 02/26/19 11:01 Seg Neuts % (Manual) 86.0 % (40.0-70.0) H 02/26/19 11:01 0 % 02/26/19 11:01 4.0 % (13.4-35.0) L 02/26/19 11:01 Reactive Lymphs % (Man) 0 % 02/26/19 11:01 9.0 % (0.0-7.3) H 02/26/19 11:01 1.0 % (0.0-4.3) 02/26/19 11:01 0 % (0.0-1.8) 02/26/19 11:01 0 % 02/26/19 11:01 0 % 02/26/19 11:01 0 % 02/26/19 11:01 0 % 02/26/19 11:01 Nucleated RBC % Not Reportable 02/26/19 11:01 Seg Neutrophils # Manager Construction 02/26/19 11:01 Seg Neutrophils # Man 6.4 K/mm3 (1.8-7.7) 02/26/19 11:01 Band Neutrophils # 0.0 K/mm3 02/26/19 11:01 0.3 K/mm3 (1.2-5.4) L 02/26/19 11:01 Abs React Lymphs (Man) 0.0 K/mm3 02/26/19 11:01 0.7 K/mm3 (0.0-0.8) 02/26/19 11:01 0.1 K/mm3 (0.0-0.4) 02/26/19 11:01 0.0 K/mm3 (0.0-0.1) 02/26/19 11:01 0.0 K/mm3 02/26/19 11:01 0.0 K/mm3 02/26/19 11:01 0.0 K/mm3 02/26/19 11:01 Blast Cells # 0.0 K/mm3 02/26/19 11:01 WBC Morphology Not Reportable 02/26/19 11:01 Hypersegmented Neuts Not Reportable 02/26/19 11:01 Hyposegmented Neuts Not Reportable 02/26/19 11:01 Hypogranular Neuts Not Reportable 02/26/19 11:01 Not Reportable 02/26/19 11:01 Not Reportable 02/26/19 11:01 Not Reportable 02/26/19 11:01 Not Reportable 02/26/19 11:01 Not Reportable 02/26/19 11:01 Not Reportable 02/26/19 11:01 Consistent w auto 02/26/19 11:01 Not Reportable 02/26/19 11:01 Plt Clumps, EDTA Not Reportable 02/26/19 11:01 Not Reportable 02/26/19 11:01 Not Reportable 02/26/19 11:01 Not Reportable 02/26/19 11:01 Plt Morphology Comment Not Reportable 02/26/19 11:01 RBC Morphology Not Reportable 02/26/19 11:01 Dimorphic RBCs Not Reportable 02/26/19 11:01 Few 02/26/19 11:01 1+ 02/26/19 11:01 Not Reportable 02/26/19 11:01 1+ 02/26/19 11:01 Not Reportable 02/26/19 11:01 Not Reportable 02/26/19 11:01 Not Reportable 02/26/19 11:01 Not Reportable 02/26/19 11:01 Not Reportable 02/26/19 11:01 Few 02/26/19 11:01 Not Reportable 02/26/19 11:01 Few 02/26/19 11:01 Not Reportable 02/26/19 11:01 Not Reportable 02/26/19 11:01 Not Reportable 02/26/19 11:01 Not Reportable 02/26/19 11:01 Not Reportable 02/26/19 11:01 Not Reportable 02/26/19 11:01 Not Reportable 02/26/19 11:01 Acanthocytes (Spur) Not Reportable 02/26/19 11:01 Rouleaux Not Reportable 02/26/19 11:01 Not Reportable 02/26/19 11:01 Not Reportable 02/26/19 11:01 Not Reportable 02/26/19 11:01 Not Reportable 02/26/19 11:01 Hem Pathologist Commnt No 02/26/19 11:01 Sodium 135 mmol/L (137-145) L 03/17/19 08:41 Potassium 4.6 mmol/L (3.6-5.0) 03/17/19 08:41 Chloride 94.5 mmol/L (98-107) L 03/17/19 08:41 Carbon Dioxide 25 mmol/L (22-30) 03/17/19 08:41 20 mmol/L 03/17/19 08:41 BUN 39 mg/dL (7-17) H 03/17/19 08:41 6.6 mg/dL (0.7-1.2) H D 03/17/19 08:41 Estimated GFR 7 ml/min 03/17/19 08:41 6 % 03/17/19 08:41 Glucose 158 mg/dL (65-100) H 03/17/19 08:41 POC Glucose 209 (70-105) H 03/18/19 12:04 6.8 % (4-6) H 03/08/19 05:03 Calcium 9.1 mg/dL (8.4-10.2) 03/17/19 08:41 Magnesium 1.90 mg/dL (1.7-2.3) 03/17/19 08:41 0.40 mg/dL (0.1-1.2) 03/17/19 08:41 AST 14 units/L (5-40) 03/17/19 08:41 ALT 10 units/L (7-56) 03/17/19 08:41 221 units/L (35-129) H 03/17/19 08:41 6.7 g/dL (6.3-8.2) 03/17/19 08:41 3.1 g/dL (3.9-5) L 03/17/19 08:41 0.9 % 03/17/19 08:41 Random Vancomycin 30.9 ug/mL (0-40.0) 03/10/19 07:48 Hepatitis A IgM Ab Non-reactive (NonReactive) 02/28/19 10:48 Hep Bs Antigen Non-reactive (Negative) 02/28/19 10:48 Hep B Core IgM Ab Non-reactive (NonReactive) 02/28/19 10:48 Non-reactive (NonReactive) 02/28/19 10:48 Active Medications - Current Medications Current Medications: Generic Name Dose Route Start Last Admin Trade Name Freq PRN Reason Stop Dose Admin Albuterol 2.5 mg 02/25/19 18:39 03/07/19 07:24 Proventil IH 2.5 mg Q4HRT PRN Administration Shortness Of Breath Amlodipine Besylate 5 mg 02/26/19 08:00 03/18/19 08:27 Norvasc PO 5 mg QDAY JUAQUIN Administration Aspirin 81 mg 02/26/19 08:00 03/18/19 08:30 Halfprin Ec PO 81 mg QDAY JUAQUIN Administration Bisacodyl 10 mg 03/07/19 15:19 Dulcolax [place] QDAY PRN Constipation Calcium Acetate 667 mg 02/26/19 07:30 03/18/19 08:30 Phoslo PO 667 mg AC JUAQUIN Administration Clopidogrel Bisulfate 75 mg 02/26/19 08:00 03/18/19 08:27 Plavix PO 75 mg QDAY JUAQUIN Administration Dextrose 50 ml 03/03/19 16:04 03/09/19 07:48 D50w (25gm) Syringe IV 50 ml PRN PRN Administration Hypoglycemia Diphenhydramine HCl 25 mg 02/25/19 18:39 03/08/19 18:23 Benadryl PO 25 mg Q6H PRN Administration Itching Ezetimibe 10 mg 02/25/19 22:00 03/17/19 21:35 Zetia PO 10 mg HS JUAQUIN Administration Epoetin [place] 20,000 unit 03/13/19 23:52 03/17/19 14:12 Procrit SUB-Q 20,000 unit ANNI PRN Administration hemodialysis Heparin Sodium (Porcine) 5,000 unit 02/25/19 22:00 03/18/19 05:17 Heparin SUB-Q 5,000 unit Q8HR JUAQUIN Administration Sodium Chloride 100 mls @ 999 mls/hr 03/09/19 17:42 Nacl 0.9% IV ANNI PRN Hypotension Vancomycin HCl 500 mg/ Sodium 110 mls @ 66.667 mls/hr 03/12/19 22:00 03/17/19 21:35 Chloride IV 03/19/19 23:38 66.667 mls/hr TuThSa JUAQUIN Administration Insulin Human Lispro 0 unit 03/09/19 15:00 03/18/19 08:30 Humalog SUB-Q Not Given Q4H [facility] Protocol Levothyroxine Sodium 50 mcg 02/26/19 06:00 03/18/19 05:17 Synthroid PO 50 mcg DAILY@0600 JUAQUIN Administration Magnesium Oxide 400 mg 03/13/19 09:30 03/18/19 08:30 Mag-Ox PO 400 mg QDAY JUAQUIN Administration Multivit/Ca Carb/B Cmplx/FA/Prenat 1 cap 02/27/19 08:00 03/18/19 08:30 Renal Caps PO 1 cap QDAY JUAQUIN Administration Ondansetron HCl 4 mg 03/06/19 02:49 Zofran IV Q8H PRN Nausea And Vomiting Oxycodone/Acetaminophen 1 tab 02/25/19 18:39 03/08/19 18:23 Percocet 5/325 PO 1 tab Q6H PRN Administration Pain, Moderate (4-6) Pantoprazole Sodium 40 mg 03/07/19 08:00 03/18/19 08:30 Protonix PO 40 mg QDAY JUAQUIN Administration Polyethylene Glycol 17 gm 03/12/19 11:00 03/18/19 08:33 Miralax 3350 PO Not Given QDAY JUAQUIN Pravastatin Sodium 40 mg 02/25/19 21:00 03/17/19 21:35 Pravachol PO 40 mg QHS JUAQUIN Administration Pregabalin 75 mg 02/25/19 22:00 03/17/19 21:35 Lyrica PO 75 mg HS JUAQUIN Administration Simethicone 80 mg 02/28/19 10:11 02/28/19 11:25 Mylicon PO 80 mg Q6H PRN Administration Gas pain Nutrition/Malnutrition Assess - Dietary Evaluation Nutrition/Malnutrition Findings: Nutrition Notes Start: 03/04/19 17 :30 Freq: Status: Active Protocol: Document 03/04/19 17:30 RM (Rec: 03/04/19 17:31 RM [id number]) Nutrition Notes Need for Assessment generated from: LOS Initial or Follow up Brief Note Height 4 ft 11 in Weight 67.8 kg [place] Body Weight (kg) 43.18 BMI 30.2 Subjective/Other Information Screened for LOS. Recorded PO intake 81% X 4 meals. Nutrition Intervention Revisit per MD consult or patient Sign Off request:
--- NOTE | 2019-03-18 13:54 | Progress Note ---
Assessment and Plan Assessment and plan: Hospitalist loans consultant for DM in the Inpatient Rehab unit of [facility] Patient is a 78-year-old woman with a history of PVD, DM type 2, ESRD on hemodialysis, GERD, CVA, heart failure, hypertension, hypothyroidism, legally blind and GILBERTO who presented to [facility] inpatient rehab unit following right leg BKA. Hospitalist consulted and following for uncontrolled DM. 03/09/19 Blood glucose is very labile because patient has Brittle Diabetes Mellitus. 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 Will continue to monitor CODE MET called, AMS/somnolent due to BG 27. Dextrose was to be given then she lost IV access, so I ordered Glucagon IM; however, she was waking up and drank OJ then IV re-established and she was given Dextrose IV and 1mg IM Glucagon. 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 Acute Metabolic Encephalopathy secondary to Hypoglycemia;Resolved Patient with very labile Blood glucose. She is not sure how much insulin she gets at home but states they use sliding scale. She will benefit from oral hypoglycemia agents as outpatient but i wonder if she has had bouts of hypoglycemia in the past. DM Type 2 with hyperglycemia, a1c 6.8: continue SSI monitor SOB with perihilar edema on 03/05/19 CXR: treated with HD and repeat CXR, shows improvement GILBERTO ON CPAP: Stable GERD: Famotidine ESRD: HD tts, Nephrology following HTN, controlled: low salt diet and treat with antihypertensives HX OF CVA: continue plavix, continue statin, ZETIA Hyperlipidemia: statin Hypothyrodisim: CONTINUE SYNTHROID Anemia: Monitor, on epogen DVT/GI prophylaxis History Interval history: Patient was seen and evaluated this morning, patient is on intranasal oxygen. I saw her on rehabilitation doing exercises and have to take a break because of SOB. Hospitalist Physical - Physical exam Narrative exam: Not in cardiopulmonary distress. The patient appeared well nourished and normally developed. Vital signs as documented. Head exam is unremarkable. No scleral icterus . Neck is without jugular venous distension, thyromegaly, or carotid bruits. Lungs are clear to auscultation. Cardiac exam reveals regular rate and Rhythm. First and second heart sounds normal. No murmurs, rubs or gallops. Abdominal exam reveals normal bowel sounds, no masses, no organomegaly and no aortic enlargement. Extremities right BKA. 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 No focal weakness. - Constitutional Vitals: Temp Pulse Resp BP Pulse Ox 98.4 F 73 18 114/50 99 03/18/19 12:00 03/18/19 12:00 03/18/19 12:00 03/18/19 12:00 03/18/19 07:38 General appearance: Present: no acute distress, well-nourished Results - Labs CBC & Chem 7: 03/17/19 08:41 03/17/19 08:41 Labs: Laboratory Last Values WBC 6.6 K/mm3 (4.5-11.0) 03/17/19 08:41 RBC 3.11 M/mm3 (3.65-5.03) L 03/17/19 08:41 Hgb 7.6 gm/dl (10.1-14.3) L 03/17/19 08:41 Hct 24.1 % (30.3-42.9) L 03/17/19 08:41 MCV 77 fl (79-97) L 03/17/19 08:41 MCH 24 pg (28-32) L 03/17/19 08:41 MCHC 31 % (30-34) 03/17/19 08:41 RDW 22.4 % (13.2-15.2) H 03/17/19 08:41 Plt Count 266 K/mm3 (140-440) 03/17/19 08:41 Lymph % (Auto) Mortgage Underwriter 02/26/19 11:01 [place] % (Auto) Mortgage Underwriter 02/26/19 11:01 Eos % (Auto) Mortgage Underwriter 02/26/19 11:01 Baso % (Auto) Mortgage Underwriter 02/26/19 11:01 Lymph # Mortgage Underwriter 02/26/19 11:01 [place] # Mortgage Underwriter 02/26/19 11:01 Eos # Mortgage Underwriter 02/26/19 11:01 Baso # Mortgage Underwriter 02/26/19 11:01 Add Manual Diff Complete 02/26/19 11:01 Total Counted 100 02/26/19 11:01 Seg Neutrophils % Mortgage Underwriter 02/26/19 11:01 Seg Neuts % (Manual) 86.0 % (40.0-70.0) H 02/26/19 11:01 0 % 02/26/19 11:01 4.0 % (13.4-35.0) L 02/26/19 11:01 Reactive Lymphs % (Man) 0 % 02/26/19 11:01 9.0 % (0.0-7.3) H 02/26/19 11:01 1.0 % (0.0-4.3) 02/26/19 11:01 0 % (0.0-1.8) 02/26/19 11:01 0 % 02/26/19 11:01 0 % 02/26/19 11:01 0 % 02/26/19 11:01 0 % 02/26/19 11:01 Nucleated RBC % Not Reportable 02/26/19 11:01 Seg Neutrophils # Mortgage Underwriter 02/26/19 11:01 Seg Neutrophils # Man 6.4 K/mm3 (1.8-7.7) 02/26/19 11:01 Band Neutrophils # 0.0 K/mm3 02/26/19 11:01 0.3 K/mm3 (1.2-5.4) L 02/26/19 11:01 Abs React Lymphs (Man) 0.0 K/mm3 02/26/19 11:01 0.7 K/mm3 (0.0-0.8) 02/26/19 11:01 0.1 K/mm3 (0.0-0.4) 02/26/19 11:01 0.0 K/mm3 (0.0-0.1) 02/26/19 11:01 0.0 K/mm3 02/26/19 11:01 0.0 K/mm3 02/26/19 11:01 0.0 K/mm3 02/26/19 11:01 Blast Cells # 0.0 K/mm3 02/26/19 11:01 WBC Morphology Not Reportable 02/26/19 11:01 Hypersegmented Neuts Not Reportable 02/26/19 11:01 Hyposegmented Neuts Not Reportable 02/26/19 11:01 Hypogranular Neuts Not Reportable 02/26/19 11:01 Not Reportable 02/26/19 11:01 Not Reportable 02/26/19 11:01 Not Reportable 02/26/19 11:01 Not Reportable 02/26/19 11:01 Not Reportable 02/26/19 11:01 Not Reportable 02/26/19 11:01 Consistent w auto 02/26/19 11:01 Not Reportable 02/26/19 11:01 Plt Clumps, EDTA Not Reportable 02/26/19 11:01 Not Reportable 02/26/19 11:01 Not Reportable 02/26/19 11:01 Not Reportable 02/26/19 11:01 Plt Morphology Comment Not Reportable 02/26/19 11:01 RBC Morphology Not Reportable 02/26/19 11:01 Dimorphic RBCs Not Reportable 02/26/19 11:01 Few 02/26/19 11:01 1+ 02/26/19 11:01 Not Reportable 02/26/19 11:01 1+ 02/26/19 11:01 Not Reportable 02/26/19 11:01 Not Reportable 02/26/19 11:01 Not Reportable 02/26/19 11:01 Not Reportable 02/26/19 11:01 Not Reportable 02/26/19 11:01 Few 02/26/19 11:01 Not Reportable 02/26/19 11:01 Few 02/26/19 11:01 Not Reportable 02/26/19 11:01 Not Reportable 02/26/19 11:01 Not Reportable 02/26/19 11:01 Not Reportable 02/26/19 11:01 Not Reportable 02/26/19 11:01 Not Reportable 02/26/19 11:01 Not Reportable 02/26/19 11:01 Acanthocytes (Spur) Not Reportable 02/26/19 11:01 Rouleaux Not Reportable 02/26/19 11:01 Not Reportable 02/26/19 11:01 Not Reportable 02/26/19 11:01 Not Reportable 02/26/19 11:01 Not Reportable 02/26/19 11:01 Hem Pathologist Commnt No 02/26/19 11:01 Sodium 135 mmol/L (137-145) L 03/17/19 08:41 Potassium 4.6 mmol/L (3.6-5.0) 03/17/19 08:41 Chloride 94.5 mmol/L (98-107) L 03/17/19 08:41 Carbon Dioxide 25 mmol/L (22-30) 03/17/19 08:41 20 mmol/L 03/17/19 08:41 BUN 39 mg/dL (7-17) H 03/17/19 08:41 6.6 mg/dL (0.7-1.2) H D 03/17/19 08:41 Estimated GFR 7 ml/min 03/17/19 08:41 6 % 03/17/19 08:41 Glucose 158 mg/dL (65-100) H 03/17/19 08:41 POC Glucose 209 (70-105) H 03/18/19 12:04 6.8 % (4-6) H 03/08/19 05:03 Calcium 9.1 mg/dL (8.4-10.2) 03/17/19 08:41 Magnesium 1.90 mg/dL (1.7-2.3) 03/17/19 08:41 0.40 mg/dL (0.1-1.2) 03/17/19 08:41 AST 14 units/L (5-40) 03/17/19 08:41 ALT 10 units/L (7-56) 03/17/19 08:41 221 units/L (35-129) H 03/17/19 08:41 6.7 g/dL (6.3-8.2) 03/17/19 08:41 3.1 g/dL (3.9-5) L 03/17/19 08:41 0.9 % 03/17/19 08:41 Random Vancomycin 30.9 ug/mL (0-40.0) 03/10/19 07:48 Hepatitis A IgM Ab Non-reactive (NonReactive) 02/28/19 10:48 Hep Bs Antigen Non-reactive (Negative) 02/28/19 10:48 Hep B Core IgM Ab Non-reactive (NonReactive) 02/28/19 10:48 Non-reactive (NonReactive) 02/28/19 10:48 Active Medications - Current Medications Current Medications: Generic Name Dose Route Start Last Admin Trade Name Freq PRN Reason Stop Dose Admin Albuterol 2.5 mg 02/25/19 18:39 03/07/19 07:24 Proventil IH 2.5 mg Q4HRT PRN Administration Shortness Of Breath Amlodipine Besylate 5 mg 02/26/19 08:00 03/18/19 08:27 Norvasc PO 5 mg QDAY JUAQUIN Administration Aspirin 81 mg 02/26/19 08:00 03/18/19 08:30 Halfprin Ec PO 81 mg QDAY JUAQUIN Administration Bisacodyl 10 mg 03/07/19 15:19 Dulcolax [place] QDAY PRN Constipation Calcium Acetate 667 mg 02/26/19 07:30 03/18/19 08:30 Phoslo PO 667 mg AC JUAQUIN Administration Clopidogrel Bisulfate 75 mg 02/26/19 08:00 03/18/19 08:27 Plavix PO 75 mg QDAY JUAQUIN Administration Dextrose 50 ml 03/03/19 16:04 03/09/19 07:48 D50w (25gm) Syringe IV 50 ml PRN PRN Administration Hypoglycemia Diphenhydramine HCl 25 mg 02/25/19 18:39 03/08/19 18:23 Benadryl PO 25 mg Q6H PRN Administration Itching Ezetimibe 10 mg 02/25/19 22:00 03/17/19 21:35 Zetia PO 10 mg HS JUAQUIN Administration Epoetin [place] 20,000 unit 03/13/19 23:52 03/17/19 14:12 Procrit SUB-Q 20,000 unit ANNI PRN Administration hemodialysis Heparin Sodium (Porcine) 5,000 unit 02/25/19 22:00 03/18/19 05:17 Heparin SUB-Q 5,000 unit Q8HR JUAQUIN Administration Sodium Chloride 100 mls @ 999 mls/hr 03/09/19 17:42 Nacl 0.9% IV ANNI PRN Hypotension Vancomycin HCl 500 mg/ Sodium 110 mls @ 66.667 mls/hr 03/12/19 22:00 03/17/19 21:35 Chloride IV 03/19/19 23:38 66.667 mls/hr TuThSa JUAQUIN Administration Insulin Human Lispro 0 unit 03/09/19 15:00 03/18/19 08:30 Humalog SUB-Q Not Given Q4H [facility] Protocol Levothyroxine Sodium 50 mcg 02/26/19 06:00 03/18/19 05:17 Synthroid PO 50 mcg DAILY@0600 JUAQUIN Administration Magnesium Oxide 400 mg 03/13/19 09:30 03/18/19 08:30 Mag-Ox PO 400 mg QDAY JUAQUIN Administration Multivit/Ca Carb/B Cmplx/FA/Prenat 1 cap 02/27/19 08:00 03/18/19 08:30 Renal Caps PO 1 cap QDAY JUAQUIN Administration Ondansetron HCl 4 mg 03/06/19 02:49 Zofran IV Q8H PRN Nausea And Vomiting Oxycodone/Acetaminophen 1 tab 02/25/19 18:39 03/08/19 18:23 Percocet 5/325 PO 1 tab Q6H PRN Administration Pain, Moderate (4-6) Pantoprazole Sodium 40 mg 03/07/19 08:00 03/18/19 08:30 Protonix PO 40 mg QDAY JUAQUIN Administration Polyethylene Glycol 17 gm 03/12/19 11:00 03/18/19 08:33 Miralax 3350 PO Not Given QDAY JUAQUIN Pravastatin Sodium 40 mg 02/25/19 21:00 03/17/19 21:35 Pravachol PO 40 mg QHS JUAQUIN Administration Pregabalin 75 mg 02/25/19 22:00 03/17/19 21:35 Lyrica PO 75 mg HS JUAQUIN Administration Simethicone 80 mg 02/28/19 10:11 02/28/19 11:25 Mylicon PO 80 mg Q6H PRN Administration Gas pain Nutrition/Malnutrition Assess - Dietary Evaluation Nutrition/Malnutrition Findings: Nutrition Notes Start: 03/04/19 17:30 Freq: Status: Active Protocol: Document 03/04/19 17:30 RM (Rec: 03/04/19 17:31 RM [id number]) Nutrition Notes Need for Assessment generated from: LOS Initial or Follow up Brief Note Height 4 ft 11 in Weight 67.8 kg [place] Body Weight (kg) 43.18 BMI 30.2 Subjective/Other Information Screened for LOS. Recorded PO intake 81% X 4 meals. Nutrition Intervention Revisit per MD consult or patient Sign Off request:
--- NOTE | 2019-03-18 16:50 | Discharge Summary ---
Providers - Providers Date of Admission: 02/25/19 18:31 Date of discharge: 03/18/19 Attending physician: ZHEN PHAM III, MD 02/25/19 18:31 Occupational Therapy Evaluate and Treat [CONS] Routine Comment: Reason For Exam: ADL dysfunction Physical Therapy Evaluation and Treat [CONS] Routine Comment: Reason For Exam: Mobility Dysfunction 02/26/19 10:15 Consult to Physician [CONS] Routine Comment: Consulting Provider: SELAM FORBES Physician Instructions: Reason For Exam: Medical Management DM, HF, HTN 02/26/19 10:16 Consult to Physician [CONS] Routine Comment: Consulting Provider: CHUNG YOU Physician Instructions: Reason For Exam: HD and renal management 02/26/19 14:04 Consult to Case Management [CONS] Routine Services Needed at Discharge: Home Health Services Notified:: DIESEL ENGINE INSPECTOR Phone number called:: DIESEL ENGINE INSPECTOR 02/26/19 14:05 Speech Therapy Evaluation and Treat [CONS] Routine Reason For Exam: cognition eval 03/01/19 11:31 Consult to Physician [CONS] Routine Comment: Consulting Provider: MARIA D BARNETT Physician Instructions: Reason For Exam: skin lesions 03/09/19 14:27 Consult to Physician [CONS] Routine Comment: Consulting Provider: OMER SANDOVAL Physician Instructions: Pt is in IRU on 3rd floor. Davi intact Reason For Exam: Surgical follow up [facility] Reason for admission: Right BKA Condition: Fair Hospital course: 78-year-old female with right foot pain presented to ER and found to have sepsis. Amputation was previously discussed for the right lower extremity gangrene however family refused. Patient had been undergoing treatment HBOT without resolution. ID was consulted and started antibiotics. Vascular surgery performed angiography. Afterwards she was scheduled for a right BKA which proceeded without incident. After the patient was medically stabilized she was transferred for further rehabilitation. All available medical records have been reviewed. Plan of care was discussed with patient and family. Patient participated in therapy and made reasonable progress. She was limited by decreased activity tolerance at times. We believe at this point she is probably reached her baseline as she was not extremely active at home. She will be a K1 ambulator. She improved her ability to perform ADLs as well as perform wheelchair mobility. She was transferring with sliding board at the supervision level. Family training went well, car transfers were successful. Glucose control was difficult and internal medicine's assistance was appreciated in managing that. She did improve with their interventions and is currently fairly stable on her discharge regimen. She will need to follow-up with her primary care doctor for further adjustments in her insulin once she returns to her normal environment and diet. Blood pressure was fairly well controlled during her stay. She did have issues with edema early on however this improved once more fluid was taken off during hemodialysis. Breathing improved with supplemental O2 and after dialysis, continue supplemental O2 with activity. She did have some phantom sensation but no overt phantom pain. No signs of infection in RLE. Anemia was stable and she remained above 7. Recommend continuing to check hemoglobin for possible transfusion during dialysis. Continues vancomycin on dialysis days - last dose 03/19. Discussed with patient and family that she will follow up with surgeon after discharge and he will schedule appt with [facility] for prosthetic. Disposition: DC/TX- HOME UNDER HOME [facility] Time spent for discharge: >30mins Core Measure Documentation - Palliative Care Palliative Care/ Comfort Measures: Not Applicable - Core Measures Any of the following diagnoses?: none Exam - Physical Exam Narrative exam: MUSCULOSKELETAL SPECIALTY EXAM CONSTITUTIONAL: Well developed, well nourished, appropriately groomed RESPIRATORY: Clear to auscultation bilaterally, no increased work of breathing, no crackles. Supplemental O2. CARDIOVASCULAR: Regular Rate/ Rhythm, no swelling, edema or tenderness in BUE or BLE. All extremities warm. Thrill in LUE GI: + bowel sounds, soft, nondistended. INTEGUMENTARY: normal, no lesion, rash, masses or bruising noted in extremities. Surgical wound on right lower extremity is healing well, no drainage or signs of infection MUSCULOSKELETAL: Right BKA, otherwise BUE and BLE normal without defect, crepitus, subluxation, effusion, arthritic changes or TTP. BUE 4/5, good ROM, with normal tone. LLE 4-/5 good ROM, with normal tone, RLE decreased ROM secondary to pain NEURO: Sensation intact in all extremities. No tremor noted in 4 extremities. POSTURE and GAIT: Sitting posture good. Balance appears reasonable. Gait deferred, based on standing performance she may not be able to ambulate with just a walker without prosthesis. PSYCH: Alert, orientated x2, slightly confused at times and decreased memory, affect appears normal. - Constitutional Vitals: Temp Pulse Resp BP Pulse Ox 36.9 C 73 18 114/50 99 03/18/19 12:00 03/18/19 12:00 03/18/19 12:00 03/18/19 12:00 03/18/19 07:38 Plan Activity: advance as tolerated, up only with assistance, fall precautions Weight Bearing Status: Non-Weight Bearing Diet: diabetic, renal Wound: open to air, keep clean and dry Special Instructions: record daily weights, record daily BP diary, record blood sugar diary, physical therapy, occupational therapy, home health RN Durable Medical Equipment Needed Upon Discharge: Wheelchair, Bedside Commode Follow up with: OMER SANDOVAL MD [Staff Physician] - 03/24/19 (Callto schedule appt at office or Wound clinic for referral to prosthesis fitting) CHUNG YOU MD [Staff Physician] - 48 Hours (Dialysis. Will need one more dose of Vancomycin 500mg in 100mL NS infused at 66mL/hr on 03/19/2019) [facility] MD DESI [Primary Care Provider] - 7 Days Prescriptions: Pravastatin [Pravachol] 40 mg PO QHS #30 tablet Aspirin EC 81 mg PO QDAY #30 tablet Lispro Insulin [HumaLOG] 0 unit SUB-Q Q4H 30 Days units Pregabalin [Lyrica] 75 mg PO HS #30 capsule Magnesium Oxide [Mag-Ox] 400 mg PO QDAY #30 tablet amLODIPine [Norvasc] 5 mg PO QDAY #30 tablet Calcium Acetate [Phoslo] 667 mg PO AC #90 capsule Clopidogrel [Plavix] 75 mg PO QDAY #30 tablet Pantoprazole [Protonix TAB] 40 mg PO QDAY #30 tablet Folic Acid/Vit B Comp W-C [Renal Caps] 1 cap PO QDAY #30 capsule Levothyroxine [Synthroid] 50 mcg PO DAILY@0600 #30 tablet Ezetimibe [Zetia] 10 mg PO HS #30 tablet
== END 2019-03-18 15:00 | disposition home health service (06) | DRG 947 ==
LOC: UNDOADMIN 17:22 → 3A 17:22 → 3B 18:31
PROVIDERS: ADMIT Physical Medicine & Rehabilitation; ATTEND Physical Medicine & Rehabilitation
PROC: 5A1D70Z Performance of Urinary Filtration, Intermittent, Less than 6 Hours Per Day (ICD-10-PCS; principal; 2019-02-26)
PROC: 5A1D70Z Performance of Urinary Filtration, Intermittent, Less than 6 Hours Per Day (ICD-10-PCS; 2019-02-28)
PROC: 5A1D70Z Performance of Urinary Filtration, Intermittent, Less than 6 Hours Per Day (ICD-10-PCS; 2019-03-03)
PROC: 5A1D70Z Performance of Urinary Filtration, Intermittent, Less than 6 Hours Per Day (ICD-10-PCS; 2019-03-05)
DX: R53.81 Other malaise (principal); N18.6 End stage renal disease; G93.41 Metabolic encephalopathy; I13.2 Hypertensive heart and chronic kidney disease with heart failure and with stage 5 chronic kidney disease, or end stage renal disease; E11.52 Type 2 diabetes mellitus with diabetic peripheral angiopathy with gangrene; I96 Gangrene, not elsewhere classified; E11.22 Type 2 diabetes mellitus with diabetic chronic kidney disease; K21.9 Gastro-esophageal reflux disease without esophagitis; E78.5 Hyperlipidemia, unspecified; Z86.73 Personal history of transient ischemic attack (TIA), and cerebral infarction without residual deficits; G47.33 Obstructive sleep apnea (adult) (pediatric); E03.9 Hypothyroidism, unspecified; E11.65 Type 2 diabetes mellitus with hyperglycemia; H54.8 Legal blindness, as defined in USA; D64.9 Anemia, unspecified; I50.9 Heart failure, unspecified; Z83.3 Family history of diabetes mellitus; Z82.49 Family history of ischemic heart disease and other diseases of the circulatory system; Z88.0 Allergy status to penicillin; Z91.041 Radiographic dye allergy status; Z89.511 Acquired absence of right leg below knee; Z90.49 Acquired absence of other specified parts of digestive tract; Z99.2 Dependence on renal dialysis
CPT/HCPCS: 36415; 71045; 71046; 80048; 80053; 80074; 80202; 82947; 82962; 83036; 83735; 85007; 85025; 85027; 94640; 94760; G0378; G0515; A9270-GY; J0885; J1610; J1644; J1815; J3370; J7030; J7050

== ENCOUNTER 2019-03-25 09:52 | Outpatient (CLI) | payer MEDICARE ==
[2019-03-25] MEDS ORDERED: XYLOCAINE TOPICAL 4% TP ONE (10:30)
[2019-03-25] MEDS ORDERED: SILVER NITRATE TP ONE (10:30)
== END 2019-03-25 09:53 | disposition home or self-care (01) ==
LOC: WOUND 09:52
PROVIDERS: ATTEND Surgery
DX: E11.621 Type 2 diabetes mellitus with foot ulcer (principal); L97.513 Non-pressure chronic ulcer of other part of right foot with necrosis of muscle; E11.622 Type 2 diabetes mellitus with other skin ulcer; L97.312 Non-pressure chronic ulcer of right ankle with fat layer exposed; E11.69 Type 2 diabetes mellitus with other specified complication; M86.671 Other chronic osteomyelitis, right ankle and foot; E11.51 Type 2 diabetes mellitus with diabetic peripheral angiopathy without gangrene; E11.22 Type 2 diabetes mellitus with diabetic chronic kidney disease; I12.0 Hypertensive chronic kidney disease with stage 5 chronic kidney disease or end stage renal disease; N18.6 End stage renal disease; H54.7 Unspecified visual loss; Z90.49 Acquired absence of other specified parts of digestive tract; Z90.710 Acquired absence of both cervix and uterus

== ENCOUNTER 2019-04-01 07:50 | Outpatient (CLI) | payer MEDICARE ==
[2019-04-01] MEDS ORDERED: SILVER NITRATE TP ONE (08:30)
[2019-04-01] MEDS ORDERED: XYLOCAINE TOPICAL 4% TP ONE (08:30)
== END 2019-04-01 07:51 | disposition home or self-care (01) ==
LOC: WOUND 07:50
PROVIDERS: ATTEND Surgery
DX: E11.621 Type 2 diabetes mellitus with foot ulcer (principal); L97.513 Non-pressure chronic ulcer of other part of right foot with necrosis of muscle; E11.622 Type 2 diabetes mellitus with other skin ulcer; L97.312 Non-pressure chronic ulcer of right ankle with fat layer exposed; E11.69 Type 2 diabetes mellitus with other specified complication; M86.671 Other chronic osteomyelitis, right ankle and foot; E11.51 Type 2 diabetes mellitus with diabetic peripheral angiopathy without gangrene; E11.22 Type 2 diabetes mellitus with diabetic chronic kidney disease; I12.0 Hypertensive chronic kidney disease with stage 5 chronic kidney disease or end stage renal disease; N18.6 End stage renal disease; H54.7 Unspecified visual loss; Z90.49 Acquired absence of other specified parts of digestive tract; Z90.710 Acquired absence of both cervix and uterus

== ENCOUNTER 2019-04-10 10:18 | Outpatient (CLI) | payer MEDICARE ==
[2019-04-10] MEDS ORDERED: SILVER NITRATE TP ONE (10:31)
[2019-04-10] MEDS ORDERED: XYLOCAINE TOPICAL 4% TP ONE (11:00)
== END 2019-04-10 10:19 | disposition home or self-care (01) ==
LOC: WOUND 10:18
PROVIDERS: ATTEND Surgery
DX: E11.621 Type 2 diabetes mellitus with foot ulcer (principal); L97.513 Non-pressure chronic ulcer of other part of right foot with necrosis of muscle; E11.622 Type 2 diabetes mellitus with other skin ulcer; L97.312 Non-pressure chronic ulcer of right ankle with fat layer exposed; E11.69 Type 2 diabetes mellitus with other specified complication; M86.671 Other chronic osteomyelitis, right ankle and foot; E11.51 Type 2 diabetes mellitus with diabetic peripheral angiopathy without gangrene; E11.22 Type 2 diabetes mellitus with diabetic chronic kidney disease; I12.0 Hypertensive chronic kidney disease with stage 5 chronic kidney disease or end stage renal disease; N18.6 End stage renal disease; H54.7 Unspecified visual loss; Z90.49 Acquired absence of other specified parts of digestive tract; Z90.710 Acquired absence of both cervix and uterus
CPT/HCPCS: 99214; G0463

== ENCOUNTER 2019-04-22 08:26 | Outpatient (CLI) | payer MEDICARE ==
[2019-04-22] MEDS ORDERED: XYLOCAINE TOPICAL 4% TP ONE (09:00)
== END 2019-04-22 08:27 | disposition home or self-care (01) ==
LOC: WOUND 08:26
PROVIDERS: ATTEND Surgery
DX: T87.89 Other complications of amputation stump (principal); E11.621 Type 2 diabetes mellitus with foot ulcer; L97.513 Non-pressure chronic ulcer of other part of right foot with necrosis of muscle; E11.622 Type 2 diabetes mellitus with other skin ulcer; L97.312 Non-pressure chronic ulcer of right ankle with fat layer exposed; E11.69 Type 2 diabetes mellitus with other specified complication; M86.671 Other chronic osteomyelitis, right ankle and foot; E11.22 Type 2 diabetes mellitus with diabetic chronic kidney disease; I12.0 Hypertensive chronic kidney disease with stage 5 chronic kidney disease or end stage renal disease; N18.6 End stage renal disease; E11.51 Type 2 diabetes mellitus with diabetic peripheral angiopathy without gangrene; H54.7 Unspecified visual loss; Z99.2 Dependence on renal dialysis; Z90.49 Acquired absence of other specified parts of digestive tract; Z90.710 Acquired absence of both cervix and uterus; Y83.5 Amputation of limb(s) as the cause of abnormal reaction of the patient, or of later complication, without mention of misadventure at the time of the procedure

== ENCOUNTER 2019-04-29 08:16 | Outpatient (CLI) | payer MEDICARE ==
[2019-04-29] MEDS ORDERED: XYLOCAINE TOPICAL 4% TP ONE (09:30)
== END 2019-04-29 08:17 | disposition home or self-care (01) ==
LOC: WOUND 08:16
PROVIDERS: ATTEND Surgery
DX: T87.89 Other complications of amputation stump (principal); E11.621 Type 2 diabetes mellitus with foot ulcer; L97.513 Non-pressure chronic ulcer of other part of right foot with necrosis of muscle; E11.622 Type 2 diabetes mellitus with other skin ulcer; L97.312 Non-pressure chronic ulcer of right ankle with fat layer exposed; E11.69 Type 2 diabetes mellitus with other specified complication; M86.671 Other chronic osteomyelitis, right ankle and foot; E11.22 Type 2 diabetes mellitus with diabetic chronic kidney disease; I12.0 Hypertensive chronic kidney disease with stage 5 chronic kidney disease or end stage renal disease; N18.6 End stage renal disease; E11.51 Type 2 diabetes mellitus with diabetic peripheral angiopathy without gangrene; H54.7 Unspecified visual loss; Z99.2 Dependence on renal dialysis; Z90.49 Acquired absence of other specified parts of digestive tract; Z90.710 Acquired absence of both cervix and uterus; Y83.5 Amputation of limb(s) as the cause of abnormal reaction of the patient, or of later complication, without mention of misadventure at the time of the procedure

== ENCOUNTER 2019-05-07 08:21 | Outpatient (CLI) | payer MEDICARE ==
[2019-05-07] MEDS ORDERED: XYLOCAINE TOPICAL 4% TP ONE (09:00)
== END 2019-05-07 08:22 | disposition home or self-care (01) ==
LOC: WOUND 08:21
PROVIDERS: ATTEND Surgery
DX: T87.89 Other complications of amputation stump (principal); E11.621 Type 2 diabetes mellitus with foot ulcer; L97.513 Non-pressure chronic ulcer of other part of right foot with necrosis of muscle; E11.622 Type 2 diabetes mellitus with other skin ulcer; L97.312 Non-pressure chronic ulcer of right ankle with fat layer exposed; E11.69 Type 2 diabetes mellitus with other specified complication; M86.671 Other chronic osteomyelitis, right ankle and foot; E11.22 Type 2 diabetes mellitus with diabetic chronic kidney disease; N18.6 End stage renal disease; I12.0 Hypertensive chronic kidney disease with stage 5 chronic kidney disease or end stage renal disease; E11.51 Type 2 diabetes mellitus with diabetic peripheral angiopathy without gangrene; H54.7 Unspecified visual loss; Z90.710 Acquired absence of both cervix and uterus; Z90.49 Acquired absence of other specified parts of digestive tract; Z99.2 Dependence on renal dialysis; Y83.5 Amputation of limb(s) as the cause of abnormal reaction of the patient, or of later complication, without mention of misadventure at the time of the procedure

== ENCOUNTER 2019-05-14 09:02 | Outpatient (CLI) | payer MEDICARE ==
[2019-05-14] MEDS ORDERED: XYLOCAINE TOPICAL 4% TP ONE ×2 (09:30→10:30)
== END 2019-05-14 09:03 | disposition home or self-care (01) ==
LOC: WOUND 09:02
PROVIDERS: ATTEND Surgery
DX: T87.89 Other complications of amputation stump (principal); E11.621 Type 2 diabetes mellitus with foot ulcer; L97.513 Non-pressure chronic ulcer of other part of right foot with necrosis of muscle; E11.622 Type 2 diabetes mellitus with other skin ulcer; L97.312 Non-pressure chronic ulcer of right ankle with fat layer exposed; E11.69 Type 2 diabetes mellitus with other specified complication; M86.671 Other chronic osteomyelitis, right ankle and foot; E11.22 Type 2 diabetes mellitus with diabetic chronic kidney disease; N18.6 End stage renal disease; I12.0 Hypertensive chronic kidney disease with stage 5 chronic kidney disease or end stage renal disease; E11.51 Type 2 diabetes mellitus with diabetic peripheral angiopathy without gangrene; H54.7 Unspecified visual loss; Z90.710 Acquired absence of both cervix and uterus; Z90.49 Acquired absence of other specified parts of digestive tract; Z99.2 Dependence on renal dialysis; Y83.5 Amputation of limb(s) as the cause of abnormal reaction of the patient, or of later complication, without mention of misadventure at the time of the procedure

== ENCOUNTER 2019-05-20 08:54 | Outpatient (CLI) | payer MEDICARE ==
[2019-05-20] MEDS ORDERED: XYLOCAINE TOPICAL 4% TP ONE (09:30)
== END 2019-05-20 08:55 | disposition home or self-care (01) ==
LOC: WOUND 08:54
PROVIDERS: ATTEND Surgery
DX: T87.89 Other complications of amputation stump (principal); E11.621 Type 2 diabetes mellitus with foot ulcer; L97.513 Non-pressure chronic ulcer of other part of right foot with necrosis of muscle; E11.622 Type 2 diabetes mellitus with other skin ulcer; L97.312 Non-pressure chronic ulcer of right ankle with fat layer exposed; E11.69 Type 2 diabetes mellitus with other specified complication; M86.671 Other chronic osteomyelitis, right ankle and foot; E11.22 Type 2 diabetes mellitus with diabetic chronic kidney disease; N18.6 End stage renal disease; I12.0 Hypertensive chronic kidney disease with stage 5 chronic kidney disease or end stage renal disease; E11.51 Type 2 diabetes mellitus with diabetic peripheral angiopathy without gangrene; H54.7 Unspecified visual loss; Z90.710 Acquired absence of both cervix and uterus; Z90.49 Acquired absence of other specified parts of digestive tract; Z99.2 Dependence on renal dialysis; Y83.5 Amputation of limb(s) as the cause of abnormal reaction of the patient, or of later complication, without mention of misadventure at the time of the procedure

== ENCOUNTER 2019-06-03 10:47 | Outpatient (CLI) | payer MEDICARE ==
--- NOTE | 2019-06-03 13:46 | Magnetic Resonance Report ---
MR LEFT FOOT WITHOUT CONTRAST INDICATION / CLINICAL INFORMATION: E11.621)Type 2 diabetes mellitus with foot ulcer. Left foot pain and swelling worrisome for osteomyel itis TECHNIQUE: Multiplanar, multisequence MR images were obtained. Routine MRI of the left foot COMPARISON: None available. FINDINGS: There is a soft tissue wound along the medial aspect of the distal forefoot just medial to the great toe MTP joint. There is some underlying T2-weighted signal abnormality within the peripheral marrow o f the great toe metatarsal head corresponding decreased signal T1-weighted images. No abnormal signal is identified within the great toe MTP joint. Mild cellulitis is seen surrounding the superficial ul ceration. No drainable fluid collection identified within the limits of the noncontrast technique. Th e flexor and extensor tendons of the forefoot are intact. The intrinsic ligaments of the forefoot are intact IMPRESSION: Suspect early osteomyelitis involving the medial aspect of the great toe metatarsal head which is jus t deep to the ulceration of the medial forefoot, as above Signer Name: Julian Jessica MD Signed: 06/03/2019 1:41 PM Workstation Name: [id number]
== END 2019-06-03 10:48 | disposition home or self-care (01) ==
LOC: MRI 10:47
PROVIDERS: ATTEND Surgery
DX: E11.621 Type 2 diabetes mellitus with foot ulcer (principal)

== ENCOUNTER 2019-06-04 09:00 | Outpatient (CLI) | payer MEDICARE ==
[2019-06-04] MEDS ORDERED: LIDOCAINE (4%) 40 MG/ML TOPICAL SOLN 50 ML BOTTLE TP ONE (09:30)
[2019-06-04] MEDS ORDERED: SILVER NITRATE APPLICATOR 1 EA TP ONE (10:00)
== END 2019-06-04 09:01 | disposition home or self-care (01) ==
LOC: WOUND 09:00
PROVIDERS: ATTEND Surgery
DX: T87.89 Other complications of amputation stump (principal); E11.621 Type 2 diabetes mellitus with foot ulcer; L97.513 Non-pressure chronic ulcer of other part of right foot with necrosis of muscle; L97.522 Non-pressure chronic ulcer of other part of left foot with fat layer exposed; E11.622 Type 2 diabetes mellitus with other skin ulcer; L97.822 Non-pressure chronic ulcer of other part of left lower leg with fat layer exposed; L97.312 Non-pressure chronic ulcer of right ankle with fat layer exposed; E11.69 Type 2 diabetes mellitus with other specified complication; M86.671 Other chronic osteomyelitis, right ankle and foot; Y83.5 Amputation of limb(s) as the cause of abnormal reaction of the patient, or of later complication, without mention of misadventure at the time of the procedure

== ENCOUNTER 2019-06-11 09:28 | Outpatient (CLI) | payer MEDICARE ==
[2019-06-11] MEDS ORDERED: LIDOCAINE (4%) 40 MG/ML TOPICAL SOLN 50 ML BOTTLE TP NR (10:00)
[2019-06-11] MEDS ORDERED: SILVER NITRATE APPLICATOR 1 EA TP NR (10:00)
== END 2019-06-11 09:29 | disposition home or self-care (01) ==
LOC: WOUND 09:28
PROVIDERS: ATTEND Surgery
DX: T87.89 Other complications of amputation stump (principal); E11.622 Type 2 diabetes mellitus with other skin ulcer; L97.822 Non-pressure chronic ulcer of other part of left lower leg with fat layer exposed; L97.222 Non-pressure chronic ulcer of left calf with fat layer exposed; E11.621 Type 2 diabetes mellitus with foot ulcer; L97.524 Non-pressure chronic ulcer of other part of left foot with necrosis of bone; E11.51 Type 2 diabetes mellitus with diabetic peripheral angiopathy without gangrene; E11.22 Type 2 diabetes mellitus with diabetic chronic kidney disease; I12.0 Hypertensive chronic kidney disease with stage 5 chronic kidney disease or end stage renal disease; N18.6 End stage renal disease; H54.7 Unspecified visual loss; Z90.710 Acquired absence of both cervix and uterus; Z90.49 Acquired absence of other specified parts of digestive tract; Z99.2 Dependence on renal dialysis; Y83.5 Amputation of limb(s) as the cause of abnormal reaction of the patient, or of later complication, without mention of misadventure at the time of the procedure
CPT/HCPCS: 36415; 80048; 85007; 85025

== ENCOUNTER 2019-06-11 18:37 | Emergency (ER) | payer MEDICARE ==
--- NOTE | 2019-06-11 19:42 | Event Note ---
ED Screening Note Date of service: 06/11/19 Time: 19:40 ED Screening Note: 78 y/o female female comes in for left foot bleeding after having debridement. Hx/o DM, ESRD, HTN cholestrol neuropathy. No pain. AKA on right leg this year January 2019. This initial assessment/diagnostic orders/clinical plan/treatment(s) is/are subject to change based on patients health status, clinical progression and re- assessment by fellow clinical providers in the ED. Further treatment and workup at subsequent clinical providers discretion. Patient/guardian urged not to elope from the ED as their condition may be serious if not clinically assessed and managed. Initial orders include:
[2019-06-11 20:29] LABS: Calcium 8.2 mg/dL (8.4-10.2)
[2019-06-11 20:41] LABS: Mean Corpuscular HGB Conc 30 % (30-34); Mean Corpuscular Volume 71 fl (79-97); Red Blood Count 4.34 M/mm3 (3.65-5.03)
[2019-06-11 20:58] LABS: Hematocrit 30.8 % (30.3-42.9); Hemoglobin 9.3 gm/dl (10.1-14.3); Platelet Count 139 K/mm3 (140-440); Red Cell Distribution Width 24.3 % (13.2-15.2)
[2019-06-11 21:44] VITALS: BP 122/68
--- NOTE | 2019-06-11 21:46 | Emergency Department Report ---
ED Extremity Problem HPI - General Chief complaint: Extremity Problem,Nontraumatic Stated complaint: TOE BLEEDING Time Seen by Provider: 06/11/19 19:20 Source: patient, family Mode of arrival: Wheelchair Limitations: No Limitations - History of Present Illness Initial comments: Patient is a 78-year-old female that presents emergency room for continued b leeding from her left toe. Patient states she had a debrid[facility] Patient states that he has been losing blood since then. Daughter patient states that she has gone through several gauze and dressings. Daughter states he did not use silver nitrate this time on her toe after the debridement. Patient denies pain at the site. Patient states she still having her chronic leg pain at 8 out of 10. Patient states the bleeding is better with rest and keeping it wrapped and direct pressure. Patient states it is worse when they removed direct pressure and the dressing. MD Complaint: other -: Sudden Location: left, toe History of Same: No -: No myalgia, No arthralgia, No fever, No associated dyspnea, No associated chest pain Severity scale (0 -10): 0 Consistency: constant Improves with: other (dressing.) Worsens with: other (movement and removing dressing) Associated Symptoms: denies other symptoms. denies: chest pain, shortness of breath, fever, myalgias, arthralgias, rash - Related Data Previous Rx's Medication Instructions Recorded Last Taken Type Aspirin EC [Halfprin EC] 81 mg PO QDAY #30 tablet 03/17/19 Unknown Rx Calcium Acetate [Phoslo] 667 mg PO AC #90 capsule 03/17/19 Unknown Rx Clopidogrel [Plavix] 75 mg PO QDAY #30 tablet 03/17/19 Unknown Rx Epoetin [place] 20,000 Unit [Procrit] 20,000 unit SUB-Q ANNI PRN vial 03/17/19 Unk nown Rx Ezetimibe [Zetia] 10 mg PO HS #30 tablet 03/17/19 Unknown Rx Folic Acid/Vit B Comp W-C [Renal 1 cap PO QDAY #30 capsule 03/17/19 Unknown Rx Caps] Levothyroxine [Synthroid] 50 mcg PO DAILY@0600 #30 tablet 03/17/19 Unknown Rx Lispro Insulin [HumaLOG] 0 unit SUB-Q Q4H 30 Days units 03/17/19 Unknown Rx Magnesium Oxide [Mag-Ox] 400 mg PO QDAY #30 tablet 03/17/19 Unknown Rx Pantoprazole [Protonix TAB] 40 mg PO QDAY #30 tablet 03/17/19 Unknown Rx Pravastatin [Pravachol] 40 mg PO QHS #30 tablet 03/17/19 Unknown Rx Pregabalin 75 mg PO HS #30 capsule 03/17/19 Unknown Rx amLODIPine [Norvasc] 5 mg PO QDAY #30 tablet 03/17/19 Unknown Rx Allergies Allergy/AdvReac Type Severity Reaction Status Date / Time Iodinated Contrast Media Allergy Hives, Rash Verified 11/25/18 15:48 [Iodinated Contrast- Oral and IV Dye] Penicillins Allergy Hives Verified 11/25/18 15:48 ED Review of Systems ROS: Stated complaint: TOE BLEEDING Other details as noted in HPI Constitutional: denies: chills, fever Eyes: denies: eye pain, eye discharge, vision change ENT: denies: ear pain, throat pain Respiratory: denies: cough, shortness of breath, wheezing Cardiovascular: denies: chest pain, palpitations Endocrine: no symptoms reported Gastrointestinal: denies: abdominal pain, nausea, diarrhea Genitourinary: denies: urgency, dysuria, discharge Musculoskeletal: denies: back pain, joint swelling, arthralgia Skin: denies: rash, lesions Neurological: denies: headache, weakness, paresthesias Psychiatric: denies: anxiety, depression Hematological/Lymphatic: as per HPI. denies: easy bleeding, easy bruising ED Past Medical Hx - Past Medical History Previous Medical History?: Yes Hx Hypertension: Yes (SINCE ) Hx CVA: Yes (2013) Hx Heart Attack/AMI: No Hx Congestive Heart Failure: Yes Hx Diabetes: Yes (SINCE ) Hx Deep Vein Thrombosis: No Hx Pulmonary Embolism: No Hx GERD: Yes Hx Liver Disease: No Hx Renal Disease: Yes Hx Sickle Cell Disease: No Hx Arthritis: Yes Hx Headaches / Migraines: No Hx Seizures: No Hx Kidney Stones: No Hx Psychiatric Treatment: No Hx Asthma: No Hx COPD: Yes Hx Tuberculosis: No Hx Dementia: No Hx HIV: No Additional medical history: sleep apnea, legally blind, L upper arm graft, sleep apnea (cpap qHS), anuric, hypothyrodism, diabetic neuropathy, ckd and anemia of cd - Surgical History Past Surgical History?: Yes Hx Coronary Stent: No Hx Open Heart Surgery: No Hx Pacemaker: No Hx Internal Defibrillator: No Hx Cholecystectomy: Yes (2009) Hx Appendectomy: No Hx Breast Surgery: No Additional Surgical History: right toe removal. right bka - Family History Family history: no significant - Social History Smoking Status: Never Smoker Substance Use Type: None - Medications Home Medications: Home Medications Medication Instructions Recorded Confirmed Last Taken Type Aspirin EC [Halfprin EC] 81 mg PO QDAY #30 tablet 03/17/19 Unknown Rx Calcium Acetate [Phoslo] 667 mg PO AC #90 capsule 03/17/19 Unknown Rx Clopidogrel [Plavix] 75 mg PO QDAY #30 tablet 03/17/19 Unknown Rx Epoetin [place] 20,000 Unit [Procrit] 20,000 unit SUB-Q ANNI PRN vial 03/17/19 Unknown Rx Ezetimibe [Zetia] 10 mg PO HS #30 tablet 03/17/19 Unknown Rx Folic Acid/Vit B Comp W-C [Renal 1 cap PO QDAY #30 capsule 03/17/19 Unknown Rx Caps] Levothyroxine [Synthroid] 50 mcg PO DAILY@0600 #30 tablet 03/17/19 Unknown Rx Lispro Insulin [HumaLOG] 0 unit SUB-Q Q4H 30 Days units 03/17/19 Unknown Rx Magnesium Oxide [Mag-Ox] 400 mg PO QDAY #30 tablet 03/17/19 Unknown Rx Pantoprazole [Protonix TAB] 40 mg PO QDAY #30 tablet 03/17/19 Unknown Rx Pravastatin [Pravachol] 40 mg PO QHS #30 tablet 03/17/19 Unknown Rx Pregabalin 75 mg PO HS #30 capsule 03/17/19 Unknown Rx amLODIPine [Norvasc] 5 mg PO QDAY #30 tablet 03/17/19 Unknown Rx ED Physical Exam - General Limitations: No Limitations General appearance: alert, in no apparent distress - Head Head exam: Present: atraumatic, normocephalic - Eye Eye exam: Present: normal appearance - ENT ENT exam: Present: mucous membranes moist - Neck Neck exam: Present: normal inspection - Respiratory Respiratory exam: Present: normal lung sounds bilaterally. Absent: respiratory distress, wheezes, rales - Cardiovascular Cardiovascular Exam: Present: regular rate, normal rhythm. Absent: systolic murmur, diastolic murmur, rubs, gallop - GI/Abdominal GI/Abdominal exam: Present: soft, normal bowel sounds. Absent: distended, tenderness, guarding - Rectal Rectal exam: Present: deferred - Extremities Exam Extremities exam: Present: normal inspection, other (right leg amputation, BKA. Left toe wound noted and is actively bleeding. Bleeding is non-arterial and is oozing. ) - Back Exam Back exam: Present: normal inspection - Neurological Exam Neurological exam: Present: alert, oriented X3 - Psychiatric Psychiatric exam: Present: normal affect, normal mood - Skin Skin exam: Present: warm, dry, normal color, other (open wounds on left low leg. ). Absent: rash ED Course Vital Signs 06/11/19 06/11/19 18:46 21:42 Temperature 98.1 F 98.2 F Pulse Rate 67 65 Respiratory 16 14 Rate Blood Pressure 139/60 Blood Pressure 122/68 [Right] O2 Sat by Pulse 100 96 Oximetry - Reevaluation(s) Reevaluation #1: She'll evaluation done. Dressing removed. Oozing noted from the base of the small toe on left foot. Surgicel placed. We'll reassess dressing prior to discharge. 06/11/19 21:47 Reevaluation #2: Patient continues to bleed through Surgicel and dressing. Silver nitrate used on the wound and bleeding stopped. Surgicel placed over the wound bed again. No active bleeding noted. Sterile dressing placed and wrapped with Coban. Patient is stable for discharge. Clinical findings and results discussed with family. Patient will be discharged home. Patient given discharge instructions. Daughter and patient voiced understanding of discharge instructions. 06/11/19 22:24 - Procedure Description Procedures done: 1. Done to the left fifth digit wound bed. Silver nitrate applied to wound bed after 2 attempts made with Surgicel. Surgicel did not stop bleeding. After silver nitrate was applied bleeding was completely controlled. No active bleeding noted. Sterile dressing applied and then Coban applied. ED Medical Decision Making - Lab Data Result diagrams: 06/11/19 19:48 06/11/19 19:48 - Medical Decision Making She is a 78-year-old female that presents to the emergency room for a bleeding wound on her left fifth digit. Patient of ulcers on her legs and feet and is c urrently being seen by wound care. Patient had wound care done to that wound on the left fifth digit and left the wound care center with losing. The wound continued to ooze for multiple hours. The family has tried multiple techniques try to get stop and were unsuccessful. In the emergency room silver nitrate and Surgicel were applied to the wound bed and no active bleeding was noted. Sterile dressing was applied to wound. Patient stable for discharge. Patient discharged home. Patient given discharge instructions. Family at bedside the entire visit and voiced understanding of discharge instructions as well. - Differential Diagnosis wound bleeding. Critical Care Time: Yes Critical care attestation.: If time is entered above; I have spent that time in minutes in the direct care of this critically ill patient, excluding procedure time. ED Disposition Clinical Impression: Bleeding from wound, ESRD (end stage renal disease) Anemia Qualifiers: Anemia type: unspecified type Qualified Code(s): D64.9 - Anemia, unspecified Foot ulcer Qualifiers: Laterality: left Non-pressure ulcer stage: with fat layer exposed Qualified Code(s): L97.522 - Non-pressure chronic ulcer of other part of left foot with fat layer exposed Disposition: DC-01 TO HOME OR SELFCARE Is pt being admited?: No Does the pt Need Aspirin: No Condition: Stable Instructions: Acute Wound Care (ED), Chronic Wound Care (ED), Debridement (ED), Wound Healing and Your Diet (ED) Additional Instructions: Patient to follow-up with primary care in 2-3 days. Patient to follow-up wound care within 2 days. Patient to return to ER if condition worsens. Patient to leave the dressing on until the morning. Patient to then resume normal wound care at home. Patient to rest. Patient to elevate limb. Referrals: PRIMARY CARE, [Primary Care Provider] - 2-3 Days Time of Disposition: 22:29
[2019-06-11] MEDS ORDERED: SILVER NITRATE APPLICATOR 1 EA TP ONE ×2 (22:00→22:13)
[2019-06-11 22:13] LABS: Total Cells Counted 100
[2019-06-11 22:14] LABS: Anisocytosis 1+; Hypochromasia 2+; Ovalocytes 1+; Schistocytes Few
[2019-06-11 22:15] LABS: Large Platelets 1+; Platelet Estimate Consistent w Auto; Target Cells Few
== END 2019-06-11 22:52 | disposition home or self-care (01) ==
LOC: ED 18:37
DX: L76.22 Postprocedural hemorrhage of skin and subcutaneous tissue following other procedure (principal); L97.522 Non-pressure chronic ulcer of other part of left foot with fat layer exposed; D64.9 Anemia, unspecified; E11.22 Type 2 diabetes mellitus with diabetic chronic kidney disease; I13.2 Hypertensive heart and chronic kidney disease with heart failure and with stage 5 chronic kidney disease, or end stage renal disease; I50.9 Heart failure, unspecified; N18.6 End stage renal disease; Z99.2 Dependence on renal dialysis; K21.9 Gastro-esophageal reflux disease without esophagitis; J44.9 Chronic obstructive pulmonary disease, unspecified; G47.30 Sleep apnea, unspecified
CPT/HCPCS: 36415; 80048; 85007; 85025

== ENCOUNTER 2019-06-18 09:32 | Outpatient (CLI) | payer MEDICARE ==
[2019-06-18] MEDS ORDERED: SILVER NITRATE TP ONE (10:00)
[2019-06-18] MEDS ORDERED: XYLOCAINE TOPICAL 4% TP ONE (10:00)
== END 2019-06-18 09:33 | disposition home or self-care (01) ==
LOC: WOUND 09:32
PROVIDERS: ATTEND Surgery
DX: T87.89 Other complications of amputation stump (principal); E11.622 Type 2 diabetes mellitus with other skin ulcer; L97.822 Non-pressure chronic ulcer of other part of left lower leg with fat layer exposed; L97.222 Non-pressure chronic ulcer of left calf with fat layer exposed; E11.621 Type 2 diabetes mellitus with foot ulcer; L97.524 Non-pressure chronic ulcer of other part of left foot with necrosis of bone; E11.51 Type 2 diabetes mellitus with diabetic peripheral angiopathy without gangrene; E11.22 Type 2 diabetes mellitus with diabetic chronic kidney disease; I12.0 Hypertensive chronic kidney disease with stage 5 chronic kidney disease or end stage renal disease; N18.6 End stage renal disease; H54.7 Unspecified visual loss; Z90.710 Acquired absence of both cervix and uterus; Z90.49 Acquired absence of other specified parts of digestive tract; Z99.2 Dependence on renal dialysis; Y83.5 Amputation of limb(s) as the cause of abnormal reaction of the patient, or of later complication, without mention of misadventure at the time of the procedure

== ENCOUNTER 2019-07-02 09:38 | Outpatient (CLI) | payer MEDICARE ==
[2019-07-02] MEDS ORDERED: LIDOCAINE (4%) 40 MG/ML TOPICAL SOLN 50 ML BOTTLE TP ONE (10:30)
== END 2019-07-02 09:39 | disposition home or self-care (01) ==
LOC: WOUND 09:38
PROVIDERS: ATTEND Surgery
DX: T87.89 Other complications of amputation stump (principal); E11.622 Type 2 diabetes mellitus with other skin ulcer; L97.822 Non-pressure chronic ulcer of other part of left lower leg with fat layer exposed; L97.222 Non-pressure chronic ulcer of left calf with fat layer exposed; E11.621 Type 2 diabetes mellitus with foot ulcer; L97.524 Non-pressure chronic ulcer of other part of left foot with necrosis of bone; E11.51 Type 2 diabetes mellitus with diabetic peripheral angiopathy without gangrene; E11.22 Type 2 diabetes mellitus with diabetic chronic kidney disease; I12.0 Hypertensive chronic kidney disease with stage 5 chronic kidney disease or end stage renal disease; N18.6 End stage renal disease; H54.7 Unspecified visual loss; Z90.710 Acquired absence of both cervix and uterus; Z90.49 Acquired absence of other specified parts of digestive tract; Z99.2 Dependence on renal dialysis; Y83.5 Amputation of limb(s) as the cause of abnormal reaction of the patient, or of later complication, without mention of misadventure at the time of the procedure

== ENCOUNTER 2019-07-09 09:27 | Outpatient (CLI) | payer MEDICARE ==
[2019-07-09] MEDS ORDERED: LIDOCAINE (4%) 40 MG/ML TOPICAL SOLN 50 ML BOTTLE TP ONE (11:00)
== END 2019-07-09 09:28 | disposition home or self-care (01) ==
LOC: WOUND 09:27
PROVIDERS: ATTEND Surgery
DX: T87.89 Other complications of amputation stump (principal); E11.622 Type 2 diabetes mellitus with other skin ulcer; L97.822 Non-pressure chronic ulcer of other part of left lower leg with fat layer exposed; L97.222 Non-pressure chronic ulcer of left calf with fat layer exposed; E11.621 Type 2 diabetes mellitus with foot ulcer; L97.524 Non-pressure chronic ulcer of other part of left foot with necrosis of bone; E11.51 Type 2 diabetes mellitus with diabetic peripheral angiopathy without gangrene; E11.22 Type 2 diabetes mellitus with diabetic chronic kidney disease; I12.0 Hypertensive chronic kidney disease with stage 5 chronic kidney disease or end stage renal disease; N18.6 End stage renal disease; H54.7 Unspecified visual loss; Z90.710 Acquired absence of both cervix and uterus; Z90.49 Acquired absence of other specified parts of digestive tract; Z99.2 Dependence on renal dialysis; Y83.5 Amputation of limb(s) as the cause of abnormal reaction of the patient, or of later complication, without mention of misadventure at the time of the procedure

== ENCOUNTER 2019-07-23 08:52 | Outpatient (CLI) | payer MEDICARE ==
[2019-07-23] MEDS ORDERED: LIDOCAINE (4%) 40 MG/ML TOPICAL SOLN 50 ML BOTTLE TP ONE (10:00)
[2019-07-23] MEDS ORDERED: VITAMIN A & D OINT 56.7 GM TP SCH (10:30)
== END 2019-07-23 08:53 | disposition home or self-care (01) ==
LOC: WOUND 08:52
PROVIDERS: ATTEND Surgery
DX: T87.89 Other complications of amputation stump (principal); E11.622 Type 2 diabetes mellitus with other skin ulcer; L97.822 Non-pressure chronic ulcer of other part of left lower leg with fat layer exposed; L97.222 Non-pressure chronic ulcer of left calf with fat layer exposed; E11.621 Type 2 diabetes mellitus with foot ulcer; L97.524 Non-pressure chronic ulcer of other part of left foot with necrosis of bone; E11.51 Type 2 diabetes mellitus with diabetic peripheral angiopathy without gangrene; I12.0 Hypertensive chronic kidney disease with stage 5 chronic kidney disease or end stage renal disease; N18.6 End stage renal disease; H54.7 Unspecified visual loss; Z90.710 Acquired absence of both cervix and uterus; Z90.49 Acquired absence of other specified parts of digestive tract; Z99.2 Dependence on renal dialysis; Y83.5 Amputation of limb(s) as the cause of abnormal reaction of the patient, or of later complication, without mention of misadventure at the time of the procedure

== ENCOUNTER 2019-08-06 09:37 | Outpatient (CLI) | payer MEDICARE ==
[2019-08-06] MEDS ORDERED: LIDOCAINE (4%) 40 MG/ML TOPICAL SOLN 50 ML BOTTLE TP ONE (10:00)
== END 2019-08-06 09:38 | disposition home or self-care (01) ==
LOC: WOUND 09:37
PROVIDERS: ATTEND Surgery
DX: T87.89 Other complications of amputation stump (principal); E11.622 Type 2 diabetes mellitus with other skin ulcer; L97.822 Non-pressure chronic ulcer of other part of left lower leg with fat layer exposed; L97.222 Non-pressure chronic ulcer of left calf with fat layer exposed; E11.621 Type 2 diabetes mellitus with foot ulcer; L97.524 Non-pressure chronic ulcer of other part of left foot with necrosis of bone; E11.51 Type 2 diabetes mellitus with diabetic peripheral angiopathy without gangrene; I12.0 Hypertensive chronic kidney disease with stage 5 chronic kidney disease or end stage renal disease; N18.6 End stage renal disease; H54.7 Unspecified visual loss; Z90.710 Acquired absence of both cervix and uterus; Z90.49 Acquired absence of other specified parts of digestive tract; Z99.2 Dependence on renal dialysis; Y83.5 Amputation of limb(s) as the cause of abnormal reaction of the patient, or of later complication, without mention of misadventure at the time of the procedure

== ENCOUNTER 2019-08-20 09:25 | Outpatient (CLI) | payer MEDICARE ==
[2019-08-20] MEDS ORDERED: LIDOCAINE (4%) 40 MG/ML TOPICAL SOLN 50 ML BOTTLE TP ONE (09:38)
== END 2019-08-20 09:26 | disposition home or self-care (01) ==
LOC: WOUND 09:25
PROVIDERS: ATTEND Surgery
DX: T87.89 Other complications of amputation stump (principal); E11.622 Type 2 diabetes mellitus with other skin ulcer; L97.822 Non-pressure chronic ulcer of other part of left lower leg with fat layer exposed; L97.222 Non-pressure chronic ulcer of left calf with fat layer exposed; E11.621 Type 2 diabetes mellitus with foot ulcer; L97.524 Non-pressure chronic ulcer of other part of left foot with necrosis of bone; E11.51 Type 2 diabetes mellitus with diabetic peripheral angiopathy without gangrene; I12.0 Hypertensive chronic kidney disease with stage 5 chronic kidney disease or end stage renal disease; N18.6 End stage renal disease; H54.7 Unspecified visual loss; Z90.710 Acquired absence of both cervix and uterus; Z90.49 Acquired absence of other specified parts of digestive tract; Z99.2 Dependence on renal dialysis; Y83.5 Amputation of limb(s) as the cause of abnormal reaction of the patient, or of later complication, without mention of misadventure at the time of the procedure

== ENCOUNTER 2019-09-16 08:36 | Outpatient (CLI) | payer MEDICARE ==
--- NOTE | 2019-09-16 10:02 | Ultrasound Report ---
ULTRASOUND ABDOMEN, LIMITED (RIGHT UPPER QUADRANT) INDICATION: ABNORMAL RESULTS OF LIVER FUNCTION STUDIES R94.5/. COMPARISON: None available. FINDINGS: Pancreas: Visualized portion shows no significant abnormality. Liver: Increased echogenicity without focal lesion. Gallbladder: Surgically absent. Bile ducts: Normal. Common Bile Duct measures 6 mm. Free fluid: None. Additional Findings: None. IMPRESSION: 1. Increased hepatic echogenicity compatible with underlying hepatocellular disease. 2. Status post previous cholecystectomy. Negative for biliary dilatation. Signer Name: Tyrese Watts MD Signed: 09/16/2019 9:58 AM Workstation Name: [id number]
--- NOTE | 2019-09-16 10:25 | XRay Report ---
CHEST 2 VIEWS INDICATION: 466.0 Acute bronchitis/. COMPARISON: 03/06/2019 and 03/05/2019 FINDINGS: Support devices: None. Heart: Stable cardiomegaly. Pulmonary vasculature: Central vascular congestion. Lungs/pleura: No acute air space or interstitial disease. Mild subsegmental atelectasis in the right midlung. No pleural effusion. No pneumothorax. Additional findings: None. IMPRESSION: 1. Cardiomegaly and pulmonary venous hypertension but no pulmonary edema. 2. No pneumonia. Signer Name: Mitch Bender MD Signed: 09/16/2019 10:20 AM Workstation Name: [id number]
== END 2019-09-16 08:37 | disposition home or self-care (01) ==
LOC: US 08:36
PROVIDERS: ATTEND Internal Medicine
DX: J98.11 Atelectasis (principal); K76.89 Other specified diseases of liver; I51.7 Cardiomegaly; I27.20 Pulmonary hypertension, unspecified; Z90.49 Acquired absence of other specified parts of digestive tract
CPT/HCPCS: 71046; 76705

== ENCOUNTER 2019-09-17 09:27 | Outpatient (CLI) | payer MEDICARE ==
[2019-09-17] MEDS ORDERED: LIDOCAINE (4%) 40 MG/ML TOPICAL SOLN 50 ML BOTTLE TP ONE (10:00)
== END 2019-09-17 09:28 | disposition home or self-care (01) ==
LOC: WOUND 09:27
PROVIDERS: ATTEND Surgery
DX: E11.622 Type 2 diabetes mellitus with other skin ulcer (principal); L97.822 Non-pressure chronic ulcer of other part of left lower leg with fat layer exposed; L97.222 Non-pressure chronic ulcer of left calf with fat layer exposed; E11.621 Type 2 diabetes mellitus with foot ulcer; L97.524 Non-pressure chronic ulcer of other part of left foot with necrosis of bone; E11.51 Type 2 diabetes mellitus with diabetic peripheral angiopathy without gangrene; I12.0 Hypertensive chronic kidney disease with stage 5 chronic kidney disease or end stage renal disease; N18.6 End stage renal disease; H54.7 Unspecified visual loss; Z90.710 Acquired absence of both cervix and uterus; Z90.49 Acquired absence of other specified parts of digestive tract; Z99.2 Dependence on renal dialysis

== ENCOUNTER 2019-10-01 10:00 | Outpatient (CLI) | payer MEDICARE ==
[2019-10-01] MEDS ORDERED: LIDOCAINE (4%) 40 MG/ML TOPICAL SOLN 50 ML BOTTLE TP ONE (10:02)
== END 2019-10-01 10:01 | disposition home or self-care (01) ==
LOC: WOUND 10:00
PROVIDERS: ATTEND Surgery
DX: E11.622 Type 2 diabetes mellitus with other skin ulcer (principal); L97.222 Non-pressure chronic ulcer of left calf with fat layer exposed; E11.621 Type 2 diabetes mellitus with foot ulcer; L97.524 Non-pressure chronic ulcer of other part of left foot with necrosis of bone; E11.51 Type 2 diabetes mellitus with diabetic peripheral angiopathy without gangrene; I12.0 Hypertensive chronic kidney disease with stage 5 chronic kidney disease or end stage renal disease; N18.6 End stage renal disease; H54.7 Unspecified visual loss; Z90.710 Acquired absence of both cervix and uterus; Z90.49 Acquired absence of other specified parts of digestive tract; Z99.2 Dependence on renal dialysis

== ENCOUNTER 2019-10-15 09:36 | Outpatient (CLI) | payer MEDICARE ==
[2019-10-15] MEDS ORDERED: LIDOCAINE (4%) 40 MG/ML TOPICAL SOLN 50 ML BOTTLE TP SCH (10:00)
== END 2019-10-15 09:37 | disposition home or self-care (01) ==
LOC: WOUND 09:36
PROVIDERS: ATTEND Surgery
DX: E11.622 Type 2 diabetes mellitus with other skin ulcer (principal); L97.222 Non-pressure chronic ulcer of left calf with fat layer exposed; E11.621 Type 2 diabetes mellitus with foot ulcer; L97.524 Non-pressure chronic ulcer of other part of left foot with necrosis of bone; E11.51 Type 2 diabetes mellitus with diabetic peripheral angiopathy without gangrene; I12.0 Hypertensive chronic kidney disease with stage 5 chronic kidney disease or end stage renal disease; N18.6 End stage renal disease; H54.7 Unspecified visual loss; Z90.710 Acquired absence of both cervix and uterus; Z90.49 Acquired absence of other specified parts of digestive tract; Z99.2 Dependence on renal dialysis

== ENCOUNTER 2019-10-29 09:32 | Outpatient (CLI) | payer MEDICARE ==
[2019-10-29] MEDS ORDERED: LIDOCAINE (4%) 40 MG/ML TOPICAL SOLN 50 ML BOTTLE TP ONE (09:37)
== END 2019-10-29 09:33 | disposition home or self-care (01) ==
LOC: WOUND 09:32
PROVIDERS: ATTEND Surgery
DX: E11.622 Type 2 diabetes mellitus with other skin ulcer (principal); L97.222 Non-pressure chronic ulcer of left calf with fat layer exposed; E11.621 Type 2 diabetes mellitus with foot ulcer; L97.524 Non-pressure chronic ulcer of other part of left foot with necrosis of bone; E11.51 Type 2 diabetes mellitus with diabetic peripheral angiopathy without gangrene; I12.0 Hypertensive chronic kidney disease with stage 5 chronic kidney disease or end stage renal disease; N18.6 End stage renal disease; H54.7 Unspecified visual loss; Z90.710 Acquired absence of both cervix and uterus; Z90.49 Acquired absence of other specified parts of digestive tract; Z99.2 Dependence on renal dialysis

== ENCOUNTER 2019-11-12 09:28 | Outpatient (CLI) | payer MEDICARE ==
[2019-11-12] MEDS ORDERED: LIDOCAINE (4%) 40 MG/ML TOPICAL SOLN 50 ML BOTTLE TP ONE (10:00)
== END 2019-11-12 09:29 | disposition home or self-care (01) ==
LOC: WOUND 09:28
PROVIDERS: ATTEND Surgery
DX: E11.621 Type 2 diabetes mellitus with foot ulcer (principal); L97.524 Non-pressure chronic ulcer of other part of left foot with necrosis of bone; E11.622 Type 2 diabetes mellitus with other skin ulcer; L97.222 Non-pressure chronic ulcer of left calf with fat layer exposed; E11.51 Type 2 diabetes mellitus with diabetic peripheral angiopathy without gangrene; E11.22 Type 2 diabetes mellitus with diabetic chronic kidney disease; I12.0 Hypertensive chronic kidney disease with stage 5 chronic kidney disease or end stage renal disease; N18.6 End stage renal disease; H54.7 Unspecified visual loss; Z99.2 Dependence on renal dialysis; Z90.710 Acquired absence of both cervix and uterus; Z90.49 Acquired absence of other specified parts of digestive tract

== ENCOUNTER 2019-11-26 09:29 | Outpatient (CLI) | payer MEDICARE ==
[2019-11-26] MEDS ORDERED: LIDOCAINE (4%) 40 MG/ML TOPICAL SOLN 50 ML BOTTLE TP ONE (09:30)
== END 2019-11-26 09:30 | disposition home or self-care (01) ==
LOC: WOUND 09:29
PROVIDERS: ATTEND Surgery
DX: E11.621 Type 2 diabetes mellitus with foot ulcer (principal); L97.524 Non-pressure chronic ulcer of other part of left foot with necrosis of bone; E11.622 Type 2 diabetes mellitus with other skin ulcer; L97.222 Non-pressure chronic ulcer of left calf with fat layer exposed; E11.51 Type 2 diabetes mellitus with diabetic peripheral angiopathy without gangrene; E11.22 Type 2 diabetes mellitus with diabetic chronic kidney disease; I12.0 Hypertensive chronic kidney disease with stage 5 chronic kidney disease or end stage renal disease; N18.6 End stage renal disease; H54.7 Unspecified visual loss; Z99.2 Dependence on renal dialysis; Z90.710 Acquired absence of both cervix and uterus; Z90.49 Acquired absence of other specified parts of digestive tract